=== PATIENT | female | born 1970 | race Caucasian/White ===

== ENCOUNTER → 2017-10-01 14:00 | Outpatient (CLI) | payer BC, SELFPAY ==
[2017-10-04 14:25] LABS: HPV APTIMA, High Risk Negative (Negative)
== END ==
PROVIDERS: Family Provider Student in an Organized Health Care Education/Training Program; PCP Student in an Organized Health Care Education/Training Program; Visit Provider Obstetrics & Gynecology
DX: Z12.4 Encounter for screening for malignant neoplasm of cervix (principal)
CPT/HCPCS: 88175; G0145

== ENCOUNTER → 2017-10-01 15:19 | Outpatient (CLI) | payer BC, SELFPAY ==
[2017-10-01 16:40] LABS: Estradiol 17.3 pg/mL; Follicle Stimulating Hormone 87.5 mIU/mL
== END ==
PROVIDERS: Family Provider Student in an Organized Health Care Education/Training Program; PCP Student in an Organized Health Care Education/Training Program; Visit Provider Obstetrics & Gynecology
DX: N91.2 Amenorrhea, unspecified (principal)
CPT/HCPCS: 36415; 82670; 83001

== ENCOUNTER → 2017-10-03 16:21 | Outpatient (CLI) | payer BC, SELFPAY ==
--- NOTE | 2017-10-03 16:28 | BI_ITS ---
MAMMOGRAPHY - BILATERAL SCREENING 3-D REGIS SYNTHESIS REASON FOR EXAM: Female, 47 years old. Bilateral Screening 3-D tomosynthesis PERTINENT HISTORY: No significant family history. TECHNIQUE: 2-D mammograms and 3-D Regis synthesis of the breast (s) were performed. CAD was performed. COMPARISON: October 14, 2014. FINDINGS: The breast composition is composed of scattered fibroglandular density. Scattered benign calcifications are seen. No dense spiculated masses or suspicious microcalcifications are identified. No architectural distortion is identified. There is no skin thickening or retraction. There has been no significant change since the prior study. BI/SCREENING MAMM (CAD), BILAT IMPRESSION: No mammographic signs of malignancy. Routine yearly mammograms recommended. ASSESSMENT CATEGORY: BIRADS Category 2: Benign. A letter regarding these results will be sent to the patient by the facility within 30 days. FOLLOW UP RECOMMENDATION: Yearly follow up mammogram recommended. (A) Approximately 10% of breast cancers are not detected by mammography. A normal mammogram should not delay biopsy of a clinically suspicious abnormality. Electronically Signed: José Garcia MD at 9:28 EDT , Service support ,
== END ==
PROVIDERS: Family Provider Student in an Organized Health Care Education/Training Program; PCP Student in an Organized Health Care Education/Training Program; Visit Provider Student in an Organized Health Care Education/Training Program
DX: Z12.31 Encounter for screening mammogram for malignant neoplasm of breast (principal)
CPT/HCPCS: 77063; 77067

== ENCOUNTER → 2018-07-06 15:29 | Outpatient (CLI) | payer BC, SELFPAY | PROVIDERS: Family Provider Student in an Organized Health Care Education/Training Program; PCP Student in an Organized Health Care Education/Training Program; Visit Provider Nurse Practitioner Family | DX: R30.0 Dysuria (principal) | CPT/HCPCS: 87086; 87088; 87186 ==

== ENCOUNTER → 2020-02-11 17:00 | Outpatient (CLI) | payer BC, SELFPAY ==
[2018-10-18 08:49] VITALS: BMI 43.6
--- NOTE | 2020-02-11 17:13 | BI_ITS ---
MAMMOGRAPHY - BILATERAL SCREENING REASON FOR EXAM: Female, 50 years old. Routine annual screening examination. PERTINENT HISTORY: Non-contributory. TECHNIQUE: Digital bilateral breast regis (3D mammographic acquisition) in the CC and MLO projections. 2-D mediolateral oblique (MLO) and craniocaudad (CC) views of both breasts were obtained. CAD: Full Field Digital Mammography with Computer Added Detection was performed. COMPARISON: Comparison is made with prior examination dated 10/03/2017. FINDINGS: Breast Composition: There are scattered areas of fibroglandular density. There are no dominant masses or suspicious calcifications. Stable small benign-appearing bilateral axillary lymph nodes. No other significant abnormalities are identified. There has been no significant change since the prior study. BI/SCREEN MAMM (CAD) W/REGIS BILAT IMPRESSION: Stable bilateral screening mammogram. Yearly follow-up mammogram recommended. (A) ASSESSMENT CATEGORY: BIRADS Category 2: Benign. A letter regarding these results will be sent to the patient by the facility within 30 days. Approximately 10% of breast cancers are not detected by mammography. A normal mammogram should not delay biopsy of a clinically suspicious abnormality. [id number] Electronically Signed: Navdeep Keller, at 8:30 EDT , Service support ,
== END ==
PROVIDERS: PCP Student in an Organized Health Care Education/Training Program; Referring Provider Student in an Organized Health Care Education/Training Program; Visit Provider Student in an Organized Health Care Education/Training Program
DX: Z12.31 Encounter for screening mammogram for malignant neoplasm of breast (principal)
CPT/HCPCS: 77063; 77067

== ENCOUNTER 2020-09-05 16:26 | Emergency (ER) | payer OTHER, SELFPAY ==
[2018-10-18 08:49] VITALS: BMI 43.6
[2020-09-05 16:29] VITALS: BP 146/87; PULSE 73; RESP 16; TEMP 36.3; O2SAT 99; BMI 45.2
--- NOTE | 2020-09-05 16:36 | CT_ITS ---
STUDY: CT BRAIN WITHOUT CONTRAST REASON FOR EXAM: Female, 50 years old. FALL AT WORK, HIT HEAD ON DOOR JAM, ON COUMADIN RADIATION DOSAGE (If Supplied By Facility): CTDIvol = ( 44.99 ) mGy, DLP = ( 779.24 ) mGycm TECHNIQUE: Transaxial CT imaging of the brain was performed without administration of intravenous contrast material. Individualized dose optimization techniques were used for this CT. COMPARISON: None. FINDINGS: Moderate to large size scalp hematoma and laceration injury overlying the anterior and lateral convexities of the right frontal bone. No skull or facial fractures are visualized. No demonstrated hemorrhagic contusions of the brain parenchyma. No focal edema is seen. No demonstrated midline shift or hydrocephalus. Normal calvarium. Normal size ventricles and extra-axial spaces for the patient''s age. Normal white matter tracts of the cerebral hemispheres. Normal basal ganglia and thalami. Normal brainstem. Normal cerebellum. There is no intracranial hemorrhage. There are no findings of an acute ischemic infarction. Normal visualized paranasal sinuses. CT/Brain/Head without Contrast IMPRESSION: 1. Moderate to large size scalp hematoma and laceration injury overlying the anterior and lateral convexities of the right frontal bone. No skull or facial fractures are visualized. 2. No demonstrated hemorrhagic contusions of the brain parenchyma. 3. No focal edema is seen. No demonstrated midline shift or hydrocephalus. Electronically Signed: Phillip Kuo MD at 17:54 EDT , Service support ,
--- NOTE | 2020-09-05 16:40 | RAD_ITS ---
STUDY: X-RAY - RIGHT FOOT CLINICAL: Female, 50 years old. INJURY fell at work TECHNIQUE: 3 view(s) of the foot. COMPARISON: None. FINDINGS: A small plantar calcaneal spur is present. Mild to moderate soft tissue swelling is present over the dorsum of foot. Normal talus, calcaneus, and tarsal bones. Normal visualized subtalar, talonavicular, calcaneocuboid, tarsal and tarsometatarsal articulations. Normal metatarsi. Normal metatarsophalangeal joint of the great toe. Normal tibial and fibular sesamoid bones. Normal interphalangeal joint of the great toe. Normal phalanges of the great toe. Normal second through fifth metatarsophalangeal joints. Normal interphalangeal joints and phalanges of the lesser toes. No fracture is present. RAD/Foot min 3 Views IMPRESSION: 1. Mild to moderate soft tissue swelling of the dorsum of the foot Electronically Signed: Phillip Kuo MD at 17:39 EDT , Service support ,
--- NOTE | 2020-09-05 17:55 | ED.DCSUM_ITS ---
- ER Visit Summary Date of Service: 09/05/20 Chief Complaint: Fell out at work injuring her right forehead and right foot. Patient is on Coumadin. History of Present Illness: The patient is a 50 F 3 of factor V Leiden therefore on Coumadin. Patient tripped on a rug at work around 7 AM this morning struck her head. No LOC. No neck pain. Also injured her right foot. Able to walk on the foot. Denies other injuries. Physical Examination: Middle-aged female no acute distress vital signs stable afebrile. She does want to make this Worker's Comp. H EENT exam bruising her right forehead. Pupils round reactive light. Scalp nontender. C-spine nontender. Trachea midline. Normal range of motion to her neck. Lungs clear to auscultation bilaterally. Chest were nontender. Heart regular rate and rhythm rate about 70 no murmur. Abdomen soft nontender normal bowel sounds no peritoneal signs. Pelvic girdle intact. Upper and lower extremities have no deformity. Normal range of motion. 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 Dorsi plantarflexion intact. Right foot is tender anteriorly just distal to the ankle. No gross bony deformity. DP pulse intact. Skin intact. Ankle nontender. Right knee nontender. Left lower extremity nontender. Back nontender. Spine nontender. Neurologically she is awake alert with no focal motor deficits. Test Results: CAT scan of her brain without contrast shows no acute abnormality. No bleed. No skull fracture. Awaiting formal radiology interpretation. I did review the film. Right foot x-ray 3 views read by myself shows no acute abnormality. No fracture. No dislocation. Emergency Department Course and Treatment: Patient with fall at work on Coumadin with a head injury. CAT scan and x-ray obtained. Tylenol for pain. Ice to the forehead bruise. Treatment Plan: Head injury instructions. Tylenol for pain. Follow-up if not improving. Return if worse. Disposition: Discharge Impression: Tripped and fell at work Closed head injury with right forehead hematoma Right foot contusion Anticoagulated on Coumadin secondary to factor V Leiden. Worker's Comp. injury This note was generated with apomio dictation software. It may contain incorrect words, spelling, and punctuation that were not noted in review of the chart prior to signing ED Disposition - Plan for ED Patient: Referrals: Handy Mike DO [Primary Care Provider] -
--- NOTE | 2020-09-05 17:58 | ED.DEP ---
ED Disposition - Plan for ED Patient: Disposition: Home or Assisted Living Instructions: ED Head Injury (Adult), ED Foot Contusion Referrals: Handy Mike DO [Primary Care Provider] - 1 Week if not improving Additional Instructions: Ice to your forehead and foot. Elevate your foot to decrease pain and swelling. Tylenol for pain. Read and follow head injury instructions. If you develop a severe headache, intractable vomiting or not acting right you need to be reevaluated because unlikely but you can develop bleeding inside your brain due to the Coumadin several days after a fall. If your foot not improving and have it reevaluated.
[2020-09-05] MEDS: Acetaminophen 500 MG Tablet 1000 MG PO (18:38)
== END 2020-09-05 18:40 | disposition home or self-care (01) ==
LOC: ED 18:06
PROVIDERS: Emergency Provider Emergency Medicine; PCP Student in an Organized Health Care Education/Training Program
DX: S00.83XA Contusion of other part of head, initial encounter (principal); S90.31XA Contusion of right foot, initial encounter; D68.51 Activated protein C resistance; W01.198A Fall on same level from slipping, tripping and stumbling with subsequent striking against other object, initial encounter; Z79.01 Long term (current) use of anticoagulants
CPT/HCPCS: 70450; 73630; 99282

== ENCOUNTER 2020-09-06 01:31 | Emergency (ER) | payer OTHER, SELFPAY ==
[2020-09-05 16:29] VITALS: BMI 45.2
[2020-09-06 01:32] VITALS: BP 118/67; PULSE 64; RESP 18; TEMP 36.4; O2SAT 100; BMI 45.7
[2020-09-06 01:34] VITALS: BP 118/67; PULSE 64; RESP 16; TEMP 36.4; O2SAT 100
--- NOTE | 2020-09-06 01:48 | CT_ITS ---
STUDY: CT BRAIN WITHOUT CONTRAST REASON FOR EXAM: Female, 50 years old. Head injury on coumadin -- New dizziness since last CT RADIATION DOSAGE (If Supplied By Facility): CTDIvol = ( 44.99 ) mGy, DLP = ( 796.11 ) mGycm TECHNIQUE: Transaxial CT imaging of the brain was performed without administration of intravenous contrast material. Individualized dose optimization techniques were used for this CT. COMPARISON: Earlier same day.. FINDINGS: Large right frontoparietal scalp hematoma noted. There is no intra-/extra-axial fluid collection, mass effect, or midline shift. The ferrell/white matter junction is preserved. The basal cisterns are patent. A small polyps versus retention cysts in the left axilla sinus. Other paranasal sinuses and mastoid air cells are clear. The calvarium is intact. CT/Brain/Head without Contrast IMPRESSION: No acute intracranial finding. Large frontoparietal scalp hematoma. Electronically Signed: Wai Davis MD at 2:43 EDT Tel , Service support ,
[2020-09-06 02:01] LABS: Absolute Lymphocyte Count 1.34 X10^3/uL (0.83-4.51); Absolute Neutrophil Count 3.3 X10^3/uL (2.0-7.7); Basophil# 0.02 X10^3/uL; Basophil% 0.4 % (0-1); Eosinophil# 0.13 X10^3/uL; Eosinophils% 2.4 % (0-5); Hematocrit 38.4 % (37-47); Lymphocyte # 1.34 X10^3/ul (4.0); Lymphocyte % 24.7 % (19-41); Mean Corp Hgb Conc 33.9 g/dL (32-36); Mean Corpuscular Hgb 31.5 pg (27.0-32.0); Mean Platelet Vol. 8.2 fl (6.2-12.0); Monocyte# 0.61 X10^3/uL; Monocyte% 11.2 % (0-10); NRBC Flagged by Analyzer 0 % (0-5); Neutrophil # 3.31 X10^3/uL (2.7-7.7); Neutrophil % 60.9 % (47-70); Platelet Count 143 K/mm3 (150-450); RBC Distribution Width CV 12.7 % (11.6-14.6); RBC Distribution Width SD 43.3 fl (35.1-43.9); Red Blood Count 4.13 M/mm3 (4.2-5.4); White Blood Count 5.4 K/mm3 (4.4-11.0)
--- NOTE | 2020-09-06 02:02 | ED.VIS.GEN ---
History of Present Illness Chief Complaint: Dizziness Informant: Patient Narrative: Patient is a 50-year-old female with a past medical history of factor V Leiden on Coumadin who presents to the emergency department after a fall that occurred yesterday. She was seen in the ED for this complaint. She had a CT scan of her head done as well as x-ray of her foot. She did strike her head when she fell. She also got her foot caught under a rug and is not sure how she hurt the foot but has been having pain on the dorsal aspect. The CT scan of her head did not show any intracranial hemorrhage or skull fracture. The x-ray of the foot did not show any evidence of dislocation or fracture. She is returning to the emergency department because she could not bear any weight on the foot whenever she got up to use the restroom. Whenever she got up she felt very dizzy as in everything was spinning around her. She has had significant swelling pop up over the right side of her face since last seen in the emergency department. Her eye is now swollen shut completely. Denies any vision changes in her left eye. She has been feeling mildly nauseous but no vomiting. She denies any neck pain or chest pain/shortness of breath. No abdominal pain. No injury to other extremities. She states that she was going to come in just for the reason of the foot pain but then the dizziness also is now concerning her. She states that the last time she had her INR checked has been multiple months as she did not have insurance. Past Medical History - Allergies and Home Meds Allergies/Adverse Reactions: Allergies codeine Adverse Reaction (Verified 09/05/20 16:32) Vomiting hydrocodone bitartrate [From Vicodin] Adverse Reaction (Verified 09/05/20 16:32) Pain in joints Primary Care Physician: Handy Mike DO [Primary Care Provider] - 3-5 Days Prior records reviewed: Yes Past Medical History: - - Factor V Leiden, anxiety, migraines Surgical History: noncontributory Smoking Status: Never smoker Review of Systems All systems negative except as indicated General: Denies: Chills, Fever, Sweats Eyes: Denies: Visual changes - bilaterally, Diplopia ENT: Denies: Rhinorrhea, Sore throat Cardiovascular: Denies: Chest pain, Palpitations Respiratory: Denies: Dyspnea, Cough, Dyspnea on exertion Gastrointestinal: Denies: Abdominal pain, Nausea, Vomiting, Diarrhea, Melena, Hematochezia Genitourinary: Denies: Dysuria, Hematuria, Frequency Musculoskeletal: Reports: Swelling, Extremity Pain. Denies: Back pain Skin: Denies: Rash, Wounds Neurological: Reports: - - Dizziness. Denies: Headache, Weakness, Numbness Physical Exam Vital Signs/Narrative: Vital Signs Temp Pulse Resp BP Pulse Ox 09/06/20 01:34 97.6 F L 64 16 118/67 100 09/06/20 01:32 97.6 F L 64 18 118/67 100 Inital Vital Signs reviewed: Yes General: Well nourished, Well developed, No Acute Distress Head: Normocephalic, - - Patient right side of her face is swollen with ecchymosis. The right eye is swollen shut. Is able to be opened. Eyes: Perrl, EOMI, - - No proptosis bilaterally. No hyphema. No subconjunctival hemorrhage. ENT: Moist mucous membranes, No rhinorrhea, TM's clear - No hemotympanum, no johnson sign. Neck: Supple, Nontender Cardiovascular: Regular rate, Regular rhythm, No murmurs Respiratory: No distress, CTA bilaterally, Chest nontender Abdomen: Soft, Nontender, Nondistended, Normal bowel sounds Back: Nontender, Normal Inspection. Negative for: Spinal tenderness Extremities: Tenderness - Right foot dorsal aspect is very tender to palpation and swollen. Neurovascularly intact otherwise., Edema, - - No pain over the base of fifth metatarsal. No pain over ankle. Skin: Normal color, No rash Neurological: Alert, Oriented x3, Cranial nerves II-XII grossly intact, Normal Strength, Normal Sensation Psychological: Normal affect, Normal Mood Diagnostic/Tx/Re-eval - Medical Decision Making Patient presents to the ED for reevaluation of her fall causing head trauma as well as right foot pain. He is in a walking boot but feels this boot is too small for as she had it from a previous injury on her left foot. Will trial a new walking boot to see if this fits better. The fact she has new dizziness and nausea will repeat head CT given the fact she is anticoagulated. I have low suspicion for intracranial bleed but it will be repeated out of an abundance of caution. Radiation risks were discussed with her. I do not feel any repeat imaging of the foot is necessary. Given the fact she is stating she has not had her INR checked in many months we will repeat this now as well as a blood count. Patient's lab work did not reveal her to be anemic. Her INR is at 3.5. Repeat head CT did not reveal any intracranial hemorrhage. Patient's dizziness has resolved. Her only complaint now is her foot pain. She was placed in a new boot and she does feel like this fits better. She does have a cane at home. I did advise her on rice and she can continue to take Tylenol as needed. She is to follow-up with her PCP. Return precautions are reviewed with her. She is agreeable to this plan. Discharged home in stable condition. All questions answered. ED Disposition - Plan for ED Patient: Disposition: Home or Assisted Living Diagnosis: Facial contusion, Foot contusion, Supratherapeutic INR Instructions: ED Soft Tissue Contusion, ED Facial Contusion, ED Head Injury (Adult) Referrals: Handy Mike DO [Primary Care Provider] - 3-5 Days
[2020-09-06 02:11] LABS: International Normalized Ratio 3.5; Prothrombin Time (Protime)PT. 34.3 SECONDS (11.7-14.9)
[2020-09-06 02:57] VITALS: BP 113/83; PULSE 73; RESP 18; O2SAT 97
== END 2020-09-06 02:57 | disposition home or self-care (01) ==
PROVIDERS: Emergency Provider Emergency Medicine; PCP Student in an Organized Health Care Education/Training Program
DX: S00.83XA Contusion of other part of head, initial encounter (principal); S90.31XA Contusion of right foot, initial encounter; R79.1 Abnormal coagulation profile; Z79.01 Long term (current) use of anticoagulants; W18.09XA Striking against other object with subsequent fall, initial encounter
CPT/HCPCS: 36415; 70450; 85025; 85610; 99284

== ENCOUNTER → 2020-10-03 16:14 | Outpatient (CLI) | payer OTHER, SELFPAY ==
--- NOTE | 2020-10-03 16:17 | RAD_ITS ---
STUDY: X-RAY - RIGHT FOOT CLINICAL: Female, 50 years old. right foot pain TECHNIQUE: 3 view(s) of the foot. COMPARISON: None. FINDINGS: Normal talus, calcaneus, and tarsal bones. Small plantar calcaneal enthesophyte. Normal visualized subtalar, talonavicular, calcaneocuboid, tarsal and tarsometatarsal articulations. Irregularity the base of the second third metatarsal bones which may represent healing fractures. Correlation MRI may be useful. Normal metatarsophalangeal joint of the great toe. Normal tibial and fibular sesamoid bones. Normal interphalangeal joint of the great toe. Normal phalanges of the great toe. Normal second through fifth metatarsophalangeal joints. Normal interphalangeal joints and phalanges of the lesser toes. The soft tissue structures are unremarkable. RAD/Foot min 3 Views IMPRESSION: Questionable healing fractures of the base of the second third metatarsal bones and correlation MRI may be useful. Electronically Signed: Demetris Gómez MD at 16:31 EDT Tel , Service support ,
== END ==
PROVIDERS: PCP Student in an Organized Health Care Education/Training Program; Referring Provider Physician Assistant; Visit Provider Physician Assistant
DX: S99.921A Unspecified injury of right foot, initial encounter (principal); X58.XXXA Exposure to other specified factors, initial encounter; Y93.9 Activity, unspecified; Y92.9 Unspecified place or not applicable; Y99.9 Unspecified external cause status
CPT/HCPCS: 73630

== ENCOUNTER → 2020-10-27 11:01 | Outpatient (CLI) | payer OTHER, SELFPAY ==
--- NOTE | 2020-10-27 11:04 | MRI_ITS ---
STUDY: MRI RIGHT MIDFOOT REASON FOR EXAM: Pain in the region of the right first, second and third metatarsals, right foot injury 2 months ago. TECHNIQUE: Standardized fat and water weighted pulse sequences were obtained in all 3 orthogonal planes. COMPARISON: Radiographs 10/03/2020. FINDINGS: Normal talonavicular articulation. Normal calcaneocuboid articulation. There is arthrosis of the navicular-cuneiform articulations with chondral thinning and subchondral cystic change of the distal navicular-medial cuneiform (inversion recovery sagittal images 17, 18). Normal intercuneiform articulations. Normal first tarsometatarsal articulation. Normal Lisfranc ligament. Normal second and third tarsometatarsal articulations. Normal cuboid fourth and cuboid fifth tarsometatarsal articulation. There are bone contusions of the medial, middle and lateral cuneiforms and first through third metatarsal bases (inversion recovery sagittal images 10-19). Normal visualized distal tibialis anterior tendon. Normal extensor hallucis longus tendon. Normal extensor digitorum longus tendons. Normal peroneus longus tendon and distal insertion. Normal peroneus brevis tendon and distal insertion. There is mild atrophy with mild partial fat replacement of the abductor digiti minimi muscle (T1 sagittal image 7). There is edema in the dorsal subcutis adipose space. MRI/Lower Ext/No Jt/w/o IMPRESSION: Bone contusions of the first through third metatarsal bases and cuneiforms. Arthrosis of the navicular-cuneiform articulations. Mild atrophy of the abductor digiti minimi muscle. Electronically Signed: Nitin Pham MD at 12:30 EDT Tel , Service support ,
== END ==
PROVIDERS: PCP Student in an Organized Health Care Education/Training Program; Referring Provider Physician Assistant; Visit Provider Physician Assistant
DX: S90.31XA Contusion of right foot, initial encounter (principal); X58.XXXA Exposure to other specified factors, initial encounter; Y93.9 Activity, unspecified; Y92.9 Unspecified place or not applicable; Y99.9 Unspecified external cause status
CPT/HCPCS: 73718

== ENCOUNTER 2021-02-26 05:22 | Emergency (ER) | payer OTHER, SELFPAY ==
[2021-02-26 05:22] VITALS: BP 151/82; PULSE 83; RESP 18; TEMP 36.2; O2SAT 96; BMI 44.4
[2021-02-26 05:24] VITALS: BP 151/82; PULSE 83; RESP 18; TEMP 36.2; O2SAT 96
--- NOTE | 2021-02-26 06:07 | RAD_ITS ---
STUDY: X-RAY CHEST REASON FOR EXAM: Female, 51 years old. Cough TECHNIQUE: Single AP portable view of the chest. COMPARISON: 11/27/2015 FINDINGS: The lungs are clear and expanded. There is no demonstrated pleural abnormality. Normal size heart. Normal mediastinum and suzanna. Normal visualized pulmonary arteries. Normal visualized aortic arch and descending thoracic aorta. Normal visualized thoracic spine. Normal visualized ribs, clavicles, and shoulders. There is no demonstrated abnormality of the visualized soft tissue structures of the upper abdomen. RAD/Chest 1 View (Portable) IMPRESSION: Normal x-ray examination of the chest. Electronically Signed: Demetris Gómez MD at 7:08 EDT Tel , Service support ,
--- NOTE | 2021-02-26 06:20 | EDS_ITS ---
HPI History of Present Illness Chief Complaint: Cough Informant: patient Onset/Context/Timing Onset: Days (5) Context: Gradual Onset Timing: Continuous Worsened by: Nothing Relieved by: Nothing Associated Symptoms Associated Symptoms: Myalgias, headache, shortness of breath, sore throat, and ear pain Narrative Narrative: Patient presents with cough that has been getting worse over the past 5 days. Patient denies any sputum production. Patient does admit to a sore t hroat and some ear pain. Patient states nothing seems to make it better nothing seems to make it worse. Patient states she went to an urgent care and had a COVID-19 test done there. Patient states they called her and told her that her specimen was rejected. Patient admits to some nausea but denies any vomiting. Patient also admits to some diarrhea. Patient admits to some body aches and headaches. [facility] Medical History (Updated 02/26/21 @ 07:[address] Dillon Genao DO) Abnormal Pap smear of cervix Anxiety Chest pain SOB (shortness of breath) Home Medications warfarin 4 mg tablet 4 mg PO MO 10/01/17 [History Last Taken Unknown] warfarin 6 mg tablet 6 mg PO SUTUWETHFRSA 10/01/17 [History Last Taken Unknown] fluoxetine 40 mg PO DAILY 09/05/20 [History Last Taken Unknown] Allergy/AdvReac Type Severity Reaction Status Date / Time codeine AdvReac Vomiting Verified 09/16/20 16:18 hydrocodone bitartrate AdvReac Pain in Verified 09/16/20 16:18 [From Vicodin] joints Family History Father Diabetes Congestive heart failure Asthma Mother Congestive heart failure Surgical History delivery delivered History of cholecystectomy Social History Smoking Status: Never smoker alcohol intake: never substance use type: does not use caffeine: Yes what type of physical activity do you participate in: walking seatbelt use: always do you feel safe at home: Yes additional social history: - [employer] ROS ROS ED Constitutional Constitutional ED: Reports chills and subjective; Denies fever(s) Eyes Eyes: Denies blurry vision or change in vision ENT ENT ED: Reports ear pain and sore throat; Denies rhinorrhea Cardiovascular Cardiovascular: Denies chest pain or palpitations Respiratory/Chest Respiratory/Chest: Reports cough and dyspnea Gastrointestinal Gastrointestinal: Reports diarrhea and nausea; Denies vomiting Genitourinary Genitourinary ED: Denies dysuria or hematuria Musculoskeletal Musculoskeletal: Reports myalgias; Denies back pain or neck pain Integumentary Denies abscess or rash Neurologic Neurologic: Reports headache(s); Denies weakness Allergic/Immunologic Allergic/Immunologic ED: Denies mouth swelling or urticaria EXAM Physical Exam Const Vital Signs: 02/26/21 05:22 02/26/21 05:24 02/26/21 05:26 Temperature 97.1 F L 97.1 F L Temperature Source Temporal Temporal Pulse Rate 83 83 Respiratory Rate 18 18 Respiratory Effort Normal Respiratory Pattern Normal Blood Pressure 151/82 H 151/82 H Blood Pressure Mean 105 105 Pulse Ox 96 96 Oxygen Delivery Method Room Air Room Air Positive well nourished, well developed and obese General Appearance ED: well developed Nutritional Appearance: obese HEENT Reports moist mucous membranes Neck supple and no JVD Resp normal respiratory effort Auscultation: diminished lung sounds diffuse Cardio regular rate, regular rhythm and no murmurs GI normal to inspection, nondistended, normoactive bowel sounds and non-tender Palpation: soft Extremity normal to inspection General Extremety ED: Negative for edema or tenderness General Extremity: Negative for edema Neuro oriented x3, CN's II-XII intact bilaterally and no sensory deficits noted Sensorium / Orientation: alert Motor Exam: strength 5/5 throughout Psych mental status grossly normal Skin no rashes or lesions noted MDM MDM MDM Narrative Medical decision making narrative: COVID-19 rapid antigen was obtained and was positive. Portable 1 view chest x-ray was obtained. On my interpretation, lung mao are clear. There is normal cardiac silhouette. Bony thorax is normal. There is no acute process noted. Radiologist also interpreted the x-ray and agrees. Patient was given 2 puffs of an albuterol inhaler. Patient was feeling better on reevaluation. Patient was instructed to use her inhaler as needed for coughing and wheezing. Patient was instructed to follow-up with her primary care physician in 5 to 7 days. Patient understood and was agreeable with the plan. All questions were answered. Radiography Chest X-Ray - ED: 1 View, Read by ED Physician, Read by Radiologist and Unchanged Diagnostic Testing: Radiology Impression Chest X-Ray 02/26/21 06:07 IMPRESSION: Normal x-ray examination of the chest. Electronically Signed: Demetris Gómez MD at 7:08 EDT Tel , Service support , Discharge Plan Triage Chief Complaint: Cough ED Provider: Dillon Genao Dx/Rx/DC Orders Clinical Impression: COVID-19 Instructions: Coronavirus Disease 2019 (COVID-19): Overview Prescriptions: No Action warfarin 4 mg tablet 4 mg PO MO RF: 0 warfarin 6 mg tablet 6 mg PO SUTUWETHFRSA RF: 0 fluoxetine 20 MG capsule 40 mg PO DAILY RF: 0 Stand Alone Forms: ED Work / School Excuse Primary Care Provider: Handy Mike Referrals: Handy Mike DO [Primary Care Provider] - Disposition Disposition: Home, Self Care
[2021-02-26 08:07] VITALS: PULSE 82; RESP 22; O2SAT 96
--- NOTE | 2021-02-26 08:08 | ED.RN ---
THIS NURSE REVIEWED D/C INSTRUCTIONS WITH PT. PT VERBALIZED UNDERSTANDING OF INSTRUCTIONS. PT DENIES FURTHER NEEDS OR QUESTIONS AT THIS TIME.
== END 2021-02-26 08:09 | disposition home or self-care (01) ==
PROVIDERS: Emergency Provider Emergency Medicine; PCP Student in an Organized Health Care Education/Training Program
DX: U07.1 COVID-19 (principal); H92.09 Otalgia, unspecified ear; F41.9 Anxiety disorder, unspecified; E66.9 Obesity, unspecified; Z79.01 Long term (current) use of anticoagulants; Z79.899 Other long term (current) drug therapy
CPT/HCPCS: 71045; 87426; 99282

== ENCOUNTER 2021-03-02 13:56 | Emergency (ER) | payer OTHER, SELFPAY ==
[2021-03-02 13:58] VITALS: BP 130/70; PULSE 81; RESP 26; TEMP 36.4; O2SAT 92; BMI 43.4
[2021-03-02 14:06] VITALS: O2SAT 93
--- NOTE | 2021-03-02 14:12 | EKG12_ITS ---
Test Reason : SOB Blood Pressure : / mmHG Vent. Rate : 079 BPM Atrial Rate : 079 BPM P-R Int : 132 ms QRS Dur : 080 ms QT Int : 402 ms P-R-T Axes : 018 039 175 degrees QTc Int : 460 ms Normal sinus rhythm ST & T wave abnormality, consider inferior ischemia ST & T wave abnormality, consider anterolateral ischemia Prolonged QT Abnormal ECG Confirmed by ALISON CAICEDO, AZAEL ([id number]), staff editor CLARICE FUENTES ([id number]) on 03/03/2021 10:21:09 A M Referred By: WAGNER Confirmed By:DOTTIE ROSAS MD
--- NOTE | 2021-03-02 14:12 | RAD_ITS ---
STUDY: X-RAY CHEST REASON FOR EXAM: Female, 51 years old. Rales bilaterally, Covid pneumonia TECHNIQUE: Single AP portable view of the chest. COMPARISON: Comparison is made with prior study dated 02/26/2021. FINDINGS: EKG electrodes are seen. There now is evidence of patchy alveolar densities in both lungs in the preferential peripheral location suggests pneumonitis secondary to Covid.There is no demonstrated pleural abnormality. Normal size heart. Normal mediastinum and suzanna. Normal visualized pulmonary arteries. Normal visualized aortic arch and descending thoracic aorta. Normal visualized thoracic spine. Normal visualized ribs, clavicles, and shoulders. There is no demonstrated abnormality of the visualized soft tissue structures of the upper abdomen. RAD/Chest 1 View (Portable) IMPRESSION: Patchy bilateral alveolar densities in the preferential peripheral distribution suggestive of a pneumonitis secondary to Covid. Electronically Signed: Navdeep Keller MD at 15:05 EDT , Service support ,
--- NOTE | 2021-03-02 14:14 | EX.ED.DYSGE1 ---
HPI History of Present Illness Chief Complaint: Nausea/Vomiting/Diarrhea Informant: patient Onset/Context/Timing Onset: Days (Onset of symptoms February 22, positive test February 26) Context: Sudden Onset Timing: Continuous Quality: GI, and respiratory symptoms Location: Predominantly respiratory and reason for presentation Current Severity: Mild Maximum Severity: Severe Worsened by: Walking and coughing and breathing Relieved by: Nothing Associated Symptoms Associated Symptoms: Please read HPI Narrative Narrative: Patient is a 51-year-old woman who presents with chief complaint of pain with coughing, breathing and dyspnea after walking 10 feet. She does have history of factor V Leiden deficiency. She is on Coumadin. She does not recall when her last PT/INR was. She does report headache. She denies photophobia, ocular changes or ocular pain. She denies ringing or ears or decreased hearing. She has mild nasal congestion. She does report sore throat. She does have a cough which essentially is nonproductive. She denies hemoptysis. She denies leg pain, swelling discoloration. She does report nausea without vomiting. She does report 4-5 loose watery stools per day. There is no blood or mucus noted. She reports decreased urination. She does endorse decreased p.o. intake, thirst and dry mouth. She denies history of any chronic medical problems other than the factor V Leiden deficiency. She denies history of obstructive sleep apnea. Prior similar symptoms: Yes Recent Illness/Hospitalization: Yes [facility] Medical History Abnormal Pap smear of cervix Anxiety Chest pain Factor V deficiency Migraine SOB (shortness of breath) Home Medications warfarin 4 mg tablet 4 mg PO MO 10/01/17 [History Last Taken Unknown] warfarin 6 mg tablet 6 mg PO SUTUWETHFRSA 10/01/17 [History Last Taken Unknown] fluoxetine 50 mg PO DAILY 09/05/20 [History Last Taken Unknown] hydrocodone-homatropine [Hycodan (with homatropine)] 5 ml PO Q4H PRN 4 Days #120 ml 03/02/21 [Rx Last Taken Unknown] ondansetron 4 mg PO Q8H PRN PRN #10 tab 03/02/21 [Rx Last Taken Unknown] propranolol 20 mg PO DAILY 03/02/21 [History Last Taken Unknown] Allergy/AdvReac Type Severity Reaction Status Date / Time codeine AdvReac Vomiting Verified 03/02/21 13:56 hydrocodone bitartrate AdvReac Pain in Verified 03/02/21 13:56 [From Vicodin] joints Family History Father Diabetes Congestive heart failure Asthma Mother Congestive heart failure Surgical History delivery delivered History of cholecystectomy Social History (Updated 03/02/21 @ 14:[address] Bruce Stanley MD) household members: none Smoking Status: Never smoker alcohol intake: never substance use type: does not use caffeine: Yes what type of physical activity do you participate in: walking seatbelt use: always do you feel safe at home: Yes additional social history: - [employer] ROS ROS ED Constitutional Constitutional ED: Reports sweats; Denies chills, fever(s), subjective or weight loss Eyes Eyes: Denies blurry vision, change in vision or diplopia ENT ENT ED: Reports rhinorrhea and sore throat; Denies ear pain Cardiovascular Cardiovascular: Reports chest pain; Denies orthopnea, palpitations, paroxysmal nocturnal dyspnea or racing heartbeat Respiratory/Chest Respiratory/Chest: Reports cough, dyspnea and dyspnea on exertion; Denies orthopnea, paroxysmal nocturnal dyspnea or sputum Gastrointestinal Gastrointestinal: Reports abdominal pain, diarrhea and nausea; Denies constipation, melena or vomiting Genitourinary Genitourinary ED: Reports dysuria, hematuria and urinary frequency Musculoskeletal Musculoskeletal: Denies arthralgias, myalgias or neck pain Integumentary Denies rash Neurologic Neurologic: Reports headache(s) and weakness; Denies paresthesias Allergic/Immunologic Allergic/Immunologic ED: Denies mouth swelling, tongue swelling or urticaria EXAM Physical Exam Const Vital Signs: 03/02/21 13:58 03/02/21 14:06 Temperature 97.5 F L Temperature Source Oral Pulse Rate 81 Respiratory Rate 26 H Respiratory Effort Short of Breath Blood Pressure 130/70 H Blood Pressure Mean 90 Pulse Ox 92 Oxygen Delivery Method Room Air Room Air Positive well nourished, well developed and obese General Appearance ED: well developed and other Patient appears ill. ; Negative for cyanotic, diaphoretic or NAD Nutritional Appearance: obese HEENT Reports dry mucous membranes HEENT Narrative: Head is atraumatic normocephalic. Ears normal. Nares patent. Mouth ED: Yes dry mucous membranes Mouth: dry mucous membranes Eyes PERRL and EOMs intact bilaterally General Eye ED: Negative for pale conjunctiva or scleral icterus Neck no lymphadenopathy, supple and no JVD Resp normal respiratory effort and No clear to auscultation bilaterally Effort and Inspection: Negative for retractions or pain with movement Auscultation: rales bilateral lower and wheezes; Negative for diminished lung sounds Cardio regular rate, regular rhythm, S1 normal heart sound, S2 normal heart sound and no murmurs GI normal to inspection, nondistended, normoactive bowel sounds, non-tender and non-distended Palpation: soft Back/Spine no CVA tenderness General Back: Negative for CVA tenderness Cervical Spine: Negative for cervical spine tenderness Thoracic Spine / Upper Back: Negative for thoracic spinal tenderness or paraspinal muscle tenderness Extremity normal to inspection Extremity Narrative: There is no asymmetry, swelling, discoloration, leg vein distention, palpable cords or tenderness along the distribution of the deep venous system. General Extremety ED: Negative for edema or tenderness General Extremity: Negative for edema Neuro oriented x3, CN's II-XII intact bilaterally and no sensory deficits noted Sensorium / Orientation: alert Motor Exam: strength 5/5 throughout Psych mental status grossly normal Skin no rashes or lesions noted and no wounds MDM MDM MDM Narrative Medical decision making narrative: SPECT patient's respiratory symptoms are due to Covid pneumonia. Clinically she has Covid pneumonia. Since her chest x-ray was clear several days ago will repeat since there are auscultatory findings noted today. Because of the reported diarrhea electrolyte panel was obtained to specifically look at anion gap, renal function and potassium. Clinically she is dehydrated. 1 L normal saline was ordered. Zofran for the nausea Imodium for the diarrhea. Patient was informed of her results at 06/14/2007. She requested cough medicine. Will be discharged with a prescription for cough medicine. Lab Data Attestation: I reviewed the patient's lab results. Lab results narrative: INR is therapeutic at 3.3. Patient is neutropenic consistent with Covid pneumonia. Renal function, CO2 and anion gap are normal. The chest x-ray was normal 4 days ago. Suspect patient's respiratory symptoms are all due to the Covid pneumonia. Labs: Laboratory Results - last 24 hr 03/02/21 03/02/21 03/02/21 14:40 14:40 14:40 WBC 2.0 L RBC 4.10 L Hgb 13.0 Hct 37.2 MCV 90.7 MCH 31.7 MCHC 34.9 RDW Std Deviation 42.3 RDW Coeff of Delmy 12.8 Plt Count 115 L MPV 8.7 Immature Gran % (Auto) 0.500 Neut % (Auto) 72.9 H Lymph % (Auto) 21.2 [place] % (Auto) 4.9 Eos % (Auto) 0.0 Baso % (Auto) 0.5 Absolute Neuts (auto) 1.5 L Absolute Lymphs (auto) 0.43 L Nucleated RBC % 0 PT 32.4 H INR 3.3 Sodium 137 Potassium 3.0 L Chloride 103 Carbon Dioxide 28.0 Anion Gap 6 BUN 10 Creatinine 1.00 Estim Creat Clear Calc 58.54 Est GFR (MDRD) Af Amer 75 Est GFR (MDRD) Non-Af 62 BUN/Creatinine Ratio 10.0 Glucose 128 H Calcium 8.0 L Radiography Chest X-Ray - ED: 1 View and Read by ED Physician (Single view portable chest x-ray is interpreted by in at 06/14/2004. Patient has bilateral interstitial infiltrates consistent with Covid pneumonia. Cardiac silhouette size normal. Osseous structures are unremarkable.) Diagnostic Testing: Radiology Impression Chest X-Ray 03/02/21 14:12 IMPRESSION: Patchy bilateral alveolar densities in the preferential peripheral distribution suggestive of a pneumonitis secondary to Covid. Electronically Signed: Navdeep Keller MD at 15:05 EDT , Service support , EKG Initial EKG: Attestation: I personally reviewed and interpreted this EKG as follows: Interpretation: Sinus Rhythm (Normal sinus rhythm with a ventricular rate of 79. KS interval 232 ms. Cures duration 80 ms. QT duration 402 ms with a QTC of 460 ms which is prolonged. There is an early transition with flipped T waves in V2 and V3 concerning for posterior NE. This EKG is unchanged from April 20, 2013.) Prior EKG tracings: available for review Prior: Unchanged Discharge Plan Triage Chief Complaint: Nausea/Vomiting/Diarrhea ED Provider: Bruce Stanley Dx/Rx/DC Orders Clinical Impression: Pneumonia due to COVID-19 virus, Diarrhea due to COVID-19, Dehydration, mild Instructions: Coronavirus Disease 2019 (COVID-19): Caring for Yourself or Others, ED Dehydration (Adult) Prescriptions: New ondansetron [ondansetron] 4 MG tablet 4 mg PO Q8H PRN PRN (Reason: Nausea) Qty: 10 RF: 0 hydrocodone-homatropine [Hycodan (with homatropine)] 5-1.5 mg/5 mL syrup 5 ml PO Q4H PRN (Reason: cough) 4 Days Qty: 120 RF: 0 No Action warfarin 4 mg tablet 4 mg PO MO RF: 0 warfarin 6 mg tablet 6 mg PO SUTUWETHFRSA RF: 0 fluoxetine 20 MG capsule 50 mg PO DAILY RF: 0 propranolol 20 mg Tablet 20 mg PO DAILY RF: 0 Primary Care Provider: Handy Mike Referrals: Handy Mike DO [Primary Care Provider] - 10-14 Days if not better Disposition Disposition: Home, Self Care
[2021-03-02] MEDS: Loperamide 2 MG Capsule 4 MG PO (14:37)
[2021-03-02] MEDS: 0.9% Normal Saline 1,000 ML 1000 ML IV (14:38)
[2021-03-02 14:48] LABS: Absolute Lymphocyte Count 0.43 X10^3/uL (0.83-4.51); Absolute Neutrophil Count 1.5 X10^3/uL (2.0-7.7); Basophil# 0.01 X10^3/uL; Basophil% 0.5 % (0-1); Hematocrit 37.2 % (37-47); Lymphocyte # 0.43 X10^3/ul (0.83-4.51); Lymphocyte % 21.2 % (19-41); Mean Corp Hgb Conc 34.9 g/dL (32-36); Mean Corpuscular Hgb 31.7 pg (27.0-32.0); Mean Corpuscular Volume 90.7 fL (81-99); Mean Platelet Vol. 8.7 fl (6.2-12.0); Monocyte% 4.9 % (0-10); NRBC Flagged by Analyzer 0 % (0-5); Neutrophil # 1.48 X10^3/uL (2.7-7.7); Neutrophil % 72.9 % (47-70); POSITIVE DIFFERENTIAL YES; Platelet Count 115 K/mm3 (150-450); RBC Distribution Width CV 12.8 % (11.6-14.6); RBC Distribution Width SD 42.3 fl (35.1-43.9)
[2021-03-02 14:50] LABS: Differential Indicated SCAN CRITERIA MET
[2021-03-02 14:53] LABS: International Normalized Ratio 3.3; Prothrombin Time (Protime)PT. 32.4 SECONDS (11.7-14.9)
[2021-03-02 14:57] LABS: Anion Gap 6 (5-15); BUN 10 mg/dL (7-18); Chloride 103 mmol/L (98-107); EST Glomerular Filtration Rate 62 mL/min (>60); Est Glom Filt Rate - Afr Amer 75 mL/min (>60); Estimated Creatinine Clearance 58.54 ml/min; Glucose 128 mg/dL (74-106); Sodium Level 137 mmol/L (136-145)
[2021-03-02 15:25] LABS: Anisocytosis RARE; Macrocytosis RARE; Ovalocyte RARE; Platelet Estimate SLT DEC (ADEQ); Red Cell Morphology N CHROM NORMAL (NORM C&C)
[2021-03-02 15:31] VITALS: BP 116/56; PULSE 75; RESP 21; O2SAT 93
[2021-03-03 13:24] LABS: Pathologist Review Reviewed
== END 2021-03-02 15:41 | disposition home or self-care (01) ==
PROVIDERS: Emergency Provider Emergency Medicine; PCP Student in an Organized Health Care Education/Training Program
DX: U07.1 COVID-19 (principal); J12.82 Pneumonia due to coronavirus disease 2019; E86.0 Dehydration; R11.2 Nausea with vomiting, unspecified; R19.7 Diarrhea, unspecified; D68.51 Activated protein C resistance; F41.9 Anxiety disorder, unspecified; E66.9 Obesity, unspecified; Z79.01 Long term (current) use of anticoagulants; Z79.899 Other long term (current) drug therapy
CPT/HCPCS: 71045; 80048; 85025; 85610; 93005; 96360; 99285; J7030; A4216

== ENCOUNTER 2021-04-12 17:35 | Emergency (ER) | payer OTHER, SELFPAY ==
[2021-04-12 17:36] VITALS: BP 143/72; PULSE 80; RESP 16; TEMP 35.8; O2SAT 100; BMI 42.8
--- NOTE | 2021-04-12 17:39 | RAD_ITS ---
STUDY: X-RAY - RIGHT KNEE REASON FOR EXAM: Female, 51 years old. FALL TECHNIQUE: 4 view(s) of the knee. COMPARISON: Right knee x-ray dated February 03, 2014. FINDINGS: Normal visualized distal femur. Normal visualized proximal tibia and fibula. Normal proximal tibiofibular articulation. There is no demonstrated fracture. There is moderate degenerative arthrosis of the medial femorotibial compartment with moderate joint space narrowing. Normal lateral femorotibial compartment. There is mild degenerative arthrosis of the patellofemoral articulation. There is a soft tissue prominence in the suprapatellar region suggesting a small volume joint effusion. The soft tissue structures are unremarkable. RAD/Knee 4 or More Views IMPRESSION: Degenerative arthrosis. Small joint effusion. Electronically Signed: Phillip Kuo MD at 19:17 EDT , Service support ,
[2021-04-12 19:05] LABS: International Normalized Ratio 3.9; Prothrombin Time (Protime)PT. 37.6 SECONDS (11.7-14.9)
--- NOTE | 2021-04-12 19:13 | RAD_ITS ---
STUDY: X-RAY - RIGHT TIBIA AND FIBULA REASON FOR EXAM: Female, 51 years old. pt fell last robbi, pain, swelling, bruising, redness, heat, of entire right leg TECHNIQUE: 2 view(s) of the tibia and fibula were obtained. COMPARISON: None. FINDINGS: Normal visualized tibia. Normal visualized fibula. There is no demonstrated acute fracture. The medial compartment of the knee is narrowed. There is mild nonspecific diffuse soft tissue swelling of the lower leg. RAD/Tibia & Fibula 2 Views IMPRESSION: 1. Mild soft tissue swelling Electronically Signed: Phillip Kuo MD at 20:54 EDT , Service support ,
--- NOTE | 2021-04-12 19:24 | EDS_ITS ---
HPI HPI - Fall History of Present Illness Chief Complaint: Fall Informant: patient Narrative Narrative: Presents with mechanical fall 5 days ago due to slippery steps outside. No head injuries. Pain to right knee. Patient on warfarin history of factor V Leiden with multiple blood clots in the past. Unknown on her last INR. She thinks her tetanus is in the last 5 years. She is able to ambulate, is bruising throughout the whole leg however improving from initially. No other complaints. Tetanus Immunization: <5 years PFSH PFSH Medical History Abnormal Pap smear of cervix Anxiety Chest pain Factor V deficiency Migraine SOB (shortness of breath) Home Medications warfarin 4 mg tablet 4 mg PO MO 10/01/17 [History Last Taken Unknown] warfarin 6 mg tablet 6 mg PO SUTUWETHFRSA 10/01/17 [History Last Taken Unknown] fluoxetine 50 mg PO DAILY 09/05/20 [History Last Taken Unknown] ondansetron 4 mg PO Q8H PRN PRN #10 tab 03/02/21 [Rx Last Taken Unknown] propranolol 40 mg PO DAILY 03/02/21 [History Last Taken Unknown] Allergy/AdvReac Type Severity Reaction Status Date / Time codeine AdvReac Vomiting Verified 04/12/21 17:36 hydrocodone bitartrate AdvReac Pain in Verified 04/12/21 17:36 [From Vicodin] joints Family History Father Diabetes Congestive heart failure Asthma Mother Congestive heart failure Surgical History delivery delivered History of cholecystectomy Social History household members: none Smoking Status: Never smoker alcohol intake: never substance use type: does not use caffeine: Yes what type of physical activity do you participate in: walking seatbelt use: always do you feel safe at home: Yes additional social history: - [employer] ROS ROS ED Constitutional Constitutional ED: Denies chills, fever(s) or sweats Eyes Eyes: Denies change in vision ENT ENT ED: Denies dysphagia or sore throat Cardiovascular Cardiovascular: Denies chest pain, leg edema, palpitations or racing heartbeat Respiratory/Chest Respiratory/Chest: Denies cough, dyspnea or dyspnea on exertion Gastrointestinal Gastrointestinal: Denies abdominal pain, diarrhea, nausea or vomiting Genitourinary Genitourinary ED: Denies dysuria, hematuria or urinary frequency Musculoskeletal Musculoskeletal: Reports other Details: Right lower extremity injury ; Denies back pain, extremity pain or neck pain Integumentary Denies rash or wounds Neurologic Neurologic: Denies headache(s), paresthesias or weakness EXAM Physical Exam Const Vital Signs: 04/12/21 17:36 Temperature 96.5 F L Temperature Source Temporal Pulse Rate 80 Respiratory Rate 16 Blood Pressure 143/72 H Blood Pressure Mean 95 Pulse Ox 100 Oxygen Delivery Method Room Air Positive well nourished and well developed General Appearance ED: well developed and NAD HEENT Reports moist mucous membranes normocephalic and atraumatic Eyes PERRL, EOMs intact bilaterally and conjunctivae normal General Eye ED: Yes normal appearance of both eyes Neck no lymphadenopathy and supple General: Negative for tenderness Chest Wall Chest: Negative for tenderness Resp normal respiratory effort and normal air movement Effort and Inspection: symmetric chest movement; Negative for respiratory distress Cardio regular rate, regular rhythm and no murmurs Peripheral Pulses: pulses 2+ throughout GI normal to inspection, nondistended, normoactive bowel sounds and non-tender Palpation: Negative for guarding or rebound tenderness present Back/Spine no CVA tenderness and no thoracic nor lumbar tenderness Extremity Extremity Narrative: Right lower extremity: Negative logroll. Extensive bruising distal lateral thigh to the lower extremity. Skin intact. There is abrasion at the patellar. Knee extensor mechanism intact. There is no active bleeding. Negative varus and valgus. There is tenderness upon lateral mid fibula. No deformities. No ankle tenderness. No foot tenderness. Neurovascular intact distally. Neuro oriented x3 and no sensory deficits noted Sensorium / Orientation: awake and alert Skin no rashes or lesions noted and no wounds MDM MDM MDM Narrative Medical decision making narrative: Triage protocol obtain right knee films which were negative for acute process small joint effusion noted. She is tender lateral mid fibula, tib-fib was added two views reviewed by myself shows no acute process. INR returned at 3.9. She took her Coumadin this morning. His medications and adjustments managed by her PCP. She will call PCP office tomorrow for holding and adjustments of medications. She is able to ambulate. Declines crutches. Laci wrap due to bruising and swelling discussed monitoring. All questions were answered. She will use Tylenol as needed. Lab Data Attestation: I reviewed the patient's lab results. Labs: Laboratory Results - last 24 hr 04/12/21 18:40 PT 37.6 H INR 3.9 Radiography Diagnostic Testing: Clinical Impression(s) from Imaging Studies Knee X-Ray 04/12/21 17:39 IMPRESSION: Degenerative arthrosis. Small joint effusion. Electronically Signed: Phillip Kuo MD at 19:17 EDT , Service support , Tibia/Fibula X-Ray 04/12/21 19:13 IMPRESSION: 1. Mild soft tissue swelling Electronically Signed: Phillip Kuo MD at 20:54 EDT , Service support , Discharge Plan Triage Chief Complaint: Fall ED Provider: Larry Longoria Dx/Rx/DC Orders Clinical Impression: Contusion of right knee and lower leg, Supratherapeutic INR Instructions: ED Soft Tissue Contusion Prescriptions: No Action warfarin 4 mg tablet 4 mg PO MO RF: 0 warfarin 6 mg tablet 6 mg PO SUTUWETHFRSA RF: 0 fluoxetine 20 MG capsule 50 mg PO DAILY RF: 0 propranolol 20 mg Tablet 40 mg PO DAILY RF: 0 ondansetron [ondansetron] 4 MG tablet 4 mg PO Q8H PRN PRN (Reason: Nausea) Qty: 10 RF: 0 Primary Care Provider: Handy Mike Referrals: Handy Mike DO [Primary Care Provider] - 1 Week if not improving Activity Restrictions/Additional Instructions: Your INR is 3.9 today. Call your physician tomorrow for holding and adjustments as needed. Continue Laci wrap. X-ray of right knee and right lower leg negative for any acute process. Disposition Disposition: Home, Self Care Discharge Date/Time: 04/12/21 20:28
== END 2021-04-12 20:28 | disposition home or self-care (01) ==
PROVIDERS: Emergency Provider Emergency Medicine; PCP Student in an Organized Health Care Education/Training Program
DX: S80.01XA Contusion of right knee, initial encounter (principal); S80.11XA Contusion of right lower leg, initial encounter; W10.9XXA Fall (on) (from) unspecified stairs and steps, initial encounter; Y93.9 Activity, unspecified; Y92.9 Unspecified place or not applicable; Y99.9 Unspecified external cause status; D68.51 Activated protein C resistance; F41.9 Anxiety disorder, unspecified; Z79.01 Long term (current) use of anticoagulants; Z79.899 Other long term (current) drug therapy; Z86.718 Personal history of other venous thrombosis and embolism
CPT/HCPCS: 73564; 73590; 85610; 99283; A4216

== ENCOUNTER 2022-09-13 13:15 | Emergency (ER) | payer MEDICAID, SELFPAY ==
[2022-09-13 13:16] VITALS: BP 125/82; PULSE 68; RESP 18; TEMP 36.6; O2SAT 96; BMI 43.7
--- NOTE | 2022-09-13 14:28 | ED.VIS.FALL ---
HPI HPI - Fall History of Present Illness Chief Complaint: Fall Informant: patient Occured/Mechanism Occurred: Today Narrative: Patient missed a step and fell down 2 steps Fall down steps #: 2 Usually ambulates: Without assistance Pain/Injury Pain Location: face, upper extremity (Right hand) and lower extremity (Right knee) Quality of Pain: Burning Worsened by: Nothing Relieved by: Nothing Associated Symptoms Associated Symptoms: Negative for Parasthesias, Weakness, Loss of function, Inability to ambulate or Loss of consciousness Narrative Narrative: Patient presents after a fall that occurred today. Patient missed a step and fell down 2 steps. Patient hit her upper lip, right hand, and right knee. Patient describes her pain as burning. Patient states nothing makes it worse and nothing makes it better. Patient is unsure of her last tetanus. Patient is on Coumadin for factor V deficiency. Patient does admit to a mild headache. Patient denies any paresthesias or weakness. Patient denies any nausea or vomiting. Patient denies any visual changes. Tetanus Immunization: Unknown [facility] Medical History Abnormal Pap smear of cervix Anxiety Chest pain Factor V deficiency Migraine SOB (shortness of breath) Home Medications warfarin 4 mg tablet 4 mg PO Saturday10/01/17 [History Last Taken Unknown] warfarin 6 mg tablet 6 mg PO SUTUWETHFRSA 10/01/17 [History Last Taken Unknown] fluoxetine 20 mg capsule 50 mg PO DAILY 09/05/20 [History Last Taken Unknown] ondansetron 4 mg disintegrating tablet 4 mg PO Q8H PRN PRN Nausea #10 tabs 03/02/21 [Rx Last Taken Unknown] propranolol 20 mg tablet 40 mg PO DAILY 03/02/21 [History Last Taken Unknown] Allergy/AdvReac Type Severity Reaction Status Date / Time codeine AdvReac Vomiting Verified 09/13/22 13:19 hydrocodone bitartrate AdvReac Pain in Verified 09/13/22 13:19 [From Vicodin] joints Family History Father Diabetes Congestive heart failure Asthma Mother Congestive heart failure Surgical History delivery delivered History of cholecystectomy Social History household members: none Smoking Status: Never smoker alcohol intake: never substance use type: does not use caffeine: Yes what type of physical activity do you participate in: walking seatbelt use: always do you feel safe at home: Yes additional social history: - [employer] ROS ROS ED Constitutional Constitutional ED: Denies chills or fever(s) Eyes Eyes: Denies blurry vision or change in vision ENT ENT ED: Denies rhinorrhea or sore throat Cardiovascular Cardiovascular: Denies chest pain or palpitations Respiratory/Chest Respiratory/Chest: Denies cough or dyspnea Gastrointestinal Gastrointestinal: Denies nausea or vomiting Genitourinary Genitourinary ED: Denies dysuria or hematuria Musculoskeletal Musculoskeletal: Denies back pain or neck pain Integumentary Reports Abrasions; Denies abscess or rash Neurologic Neurologic: Reports headache(s); Denies weakness Allergic/Immunologic Allergic/Immunologic ED: Denies mouth swelling or urticaria EXAM Physical Exam Const Vital Signs: 09/13/22 13:16 09/13/22 13:23 09/13/22 15:54 Temperature 97.9 F Temperature Source Temporal Pulse Rate 68 62 Respiratory Rate 18 16 Respiratory Effort Normal Blood Pressure 125/82 H 130/66 H Blood Pressure Mean 96 87 Pulse Ox 96 98 Oxygen Delivery Method Room Air Room Air Positive well nourished, well developed and obese General Appearance ED: well developed and NAD Nutritional Appearance: obese HEENT Reports moist mucous membranes HEENT Narrative: There is a 1.5 cm linear laceration to the mucosal surface of the upper lip to the left of midline. There is a superficial abrasion and skin tear over the external surface of the upper lip to the left of midline. There is no connection between the abrasion and laceration. There is minimal gapping of the wound margins. There is no active bleeding noted. There is mild edema of the upper lip. Teeth are intact. Eyes PERRL and EOMs intact bilaterally Neck full ROM, supple and no JVD Resp normal respiratory effort and clear to auscultation bilaterally Cardio regular rate and regular rhythm GI normal to inspection, nondistended, normoactive bowel sounds and non-tender Palpation: soft Extremity normal to inspection Extremity Narrative: There is mild tenderness over the right hand over the base of the second metacarpal. There is some edema and ecchymosis on the dorsal aspect of the right hand over this area. There is no bony crepitance or step-off. There is no obvious deformity noted. There is good range of motion of the right hand. There is also tenderness in the upper facial abrasion over the anterior lateral aspect of the right knee. There is some mild edema. There is no ecchymosis. There is no deformity noted. Extensor mechanism is intact. Range of motion was limited in all motions of the right knee secondary to pain. Strength is 5/5 bilateral in the upper and lower extremities. There are no sensory deficits noted. General Extremety ED: Negative for edema or tenderness General Extremity: Negative for edema Neuro oriented x3, CN's II-XII intact bilaterally and no sensory deficits noted Sensorium / Orientation: alert Motor Exam: strength 5/5 throughout Psych mental status grossly normal Skin no rashes or lesions noted Trauma: abrasion MDM MDM MDM Narrative Medical decision making narrative: Differential diagnosis includes lip laceration, abrasion, concussion, intracranial bleeding, right hand contusion, right hand fracture, right knee contusion, right knee fracture, and right knee sprain. X-rays of the right knee will be obtained to assess for fracture. X-rays of the right hand will be obtained to assess for fracture. CT scan of the brain will be obtained to assess for intracranial bleeding. Radiography Diagnostic Testing: Clinical Impression(s) from Imaging Studies Brain CT 09/13/22 14:34 IMPRESSION: No acute intracranial findings. Electronically Signed: Medhat Matthews MD at 16:09 EDT , Knee X-Ray 09/13/22 14:34 IMPRESSION: Predominant medial compartment arthrosis as above with no evidence of acute fracture. Electronically Signed: Edgardo Hastings DO at 16:14 EDT , Hand X-Ray 09/13/22 14:50 IMPRESSION: No acute bony injury. Electronically Signed: Medhat Matthews MD at 16:18 EDT , CT scan of the brain was obtained. There is no acute intracranial abnormality. This was interpreted by the radiologist and was also independently reviewed by myself. X-rays of the right hand were obtained. There are 3 views. On my independent interpretation, there is no acute fracture. There is no dislocation. There is no soft tissue swelling. Radiologist also interpreted the x-rays and agrees. X-rays of the right knee were obtained. There are 4 views. On my independent interpretation, there is no acute fracture. There is no dislocation. There is some mild soft tissue swelling. Radiologist also interpreted the x-rays and agrees. Treatment and Re-Evaluation Narrative: Patient was advised that the lacerations will not require suturing. Patient was given a tetanus booster. Patient was advised of her findings. Bacitracin dressing was applied to the upper lip preparation. Patient was instructed to keep the area clean and dry. Patient was instructed to follow-up with her primary care physician in 5 to 7 days. Patient understood and was agreeable with the plan. All questions were answered. Discharge Plan Triage Chief Complaint: Fall ED Provider: Dillon Genao Dx/Rx/DC Orders Clinical Impression: Fall, Contusion of right hand, Contusion of right knee, initial encounter, Abrasion of lip, initial encounter, Laceration of lip Instructions: ED Abrasion, ED Contusion, Lower Extremity, ED Contusion, Upper Extremity Prescriptions: No Action warfarin 4 mg tablet 4 mg PO MO warfarin 6 mg tablet 6 mg PO SUTUWETHFRSA fluoxetine 20 MG capsule 50 mg PO DAILY propranolol 20 mg Tablet 40 mg PO DAILY ondansetron [ondansetron] 4 MG tablet 4 mg PO Q8H PRN PRN (Reason: Nausea) Qty: 10 0RF Primary Care Provider: Handy Mike Referrals: Handy Mike DO [Primary Care Provider] - 5-7 Days Disposition Disposition: Home, Self Care
--- NOTE | 2022-09-13 14:34 | RAD_ITS ---
STUDY: X-RAY - RIGHT KNEE REASON FOR EXAM: Female, 52 years old. Injury/Pain TECHNIQUE: 3 view(s) of the knee. COMPARISON: None. FINDINGS: There is demineralization of the visualized distal femur. There is demineralization of the tibia and fibula. Normal proximal tibiofibular articulation. There is mild degenerative arthrosis of the medial femorotibial compartment. There is mild degenerative arthrosis of the lateral femorotibial compartment. There is mild degenerative arthrosis of the patellofemoral articulation. The soft tissue structures are unremarkable. RAD/Knee 4 or More Views IMPRESSION: Predominant medial compartment arthrosis as above with no evidence of acute fracture. Electronically Signed: Edgardo Hastings DO at 16:14 EDT ,
--- NOTE | 2022-09-13 14:34 | CT_ITS ---
INDICATION: Trauma, fall, blood thinner treatment EXAMINATION: CT BRAIN - CT Head or Brain W/O Contrast Injection TECHNIQUE: Multiple axial images were obtained of the head without intravenous contrast. A radiation dose optimization technique was used for this scan. IV Contrast dosage and agent: None. COMPARISON: 09/06/2020 FINDINGS: BRAIN PARENCHYMA: No intra- or extra-axial hemorrhage. No evidence of acute infarct. No intracranial mass or mass effect. Posterior fossa structures are unremarkable. CSF SPACES: Appropriate for age. No hydrocephalus. Basal cisterns are patent. CALVARIUM, SKULL BASE, PARANASAL SINUSES AND MASTOID AIR CELLS: Clear. No acute fracture. ORBITS: Both globes, extraocular muscles, optic nerves and retrobulbar fat appear unremarkable. CT/Brain/Head without Contrast IMPRESSION: No acute intracranial findings. Electronically Signed: Medhat Matthews MD at 16:09 EDT ,
[2022-09-13] MEDS: Diphth,Pertuss(Acell),Tet Vac 0.5 ML Vial IM (14:44)
--- NOTE | 2022-09-13 14:50 | RAD_ITS ---
INDICATION: Trauma, fall, hand injury with pain EXAMINATION/TECHNIQUE: X-RAY - RIGHT XR Hand Min 3 Views 3 VIEWS COMPARISON: None. FINDINGS: SOFT TISSUES: Focal skin defect at the third and fourth PIP joint. No radiopaque foreign body. BONES/JOINTS: No acute fracture. Joint spaces anatomically aligned. No sclerotic or destructive changes observed. RAD/Hand Min 3 Views IMPRESSION: No acute bony injury. Electronically Signed: Medhat Matthews MD at 16:18 EDT ,
[2022-09-13 15:54] VITALS: BP 130/66; PULSE 62; RESP 16; O2SAT 98
== END 2022-09-13 16:27 | disposition home or self-care (01) ==
PROVIDERS: Emergency Provider Emergency Medicine; PCP Student in an Organized Health Care Education/Training Program; Visit Provider Emergency Medicine
DX: S01.511A Laceration without foreign body of lip, initial encounter (principal); D68.2 Hereditary deficiency of other clotting factors; S80.01XA Contusion of right knee, initial encounter; S60.221A Contusion of right hand, initial encounter; R51.9 Headache, unspecified; W10.9XXA Fall (on) (from) unspecified stairs and steps, initial encounter; Z79.01 Long term (current) use of anticoagulants; Z23 Encounter for immunization
CPT/HCPCS: 70450; 73130; 73564; 90471; 90715; 99282

== ENCOUNTER 2023-07-31 23:02 | Emergency (ER) | payer MEDICAID, SELFPAY ==
[2023-07-31 23:05] VITALS: BP 104/70; PULSE 87; RESP 24; TEMP 36.7; O2SAT 97
--- NOTE | 2023-08-01 | RAD_ITS ---
STUDY: X-RAY CHEST REASON FOR EXAM: Female, 53 years old patient with shortness of breath. TECHNIQUE: PA and lateral views of the chest. COMPARISON: March 02, 2021. FINDINGS: There is interstitial thickening present in both lungs with some peribronchial cuffing. There may be some patchy left basilar airspace disease. There is also groundglass attenuation at the right lung base. The lungs are under expanded. There is no demonstrated pleural abnormality. There is mild cardiac enlargement. Normal mediastinum and suzanna. Normal visualized pulmonary arteries. There is atherosclerotic calcification of the aortic arch with tortuosity. The bones appear osteopenic. There appear to be several compression fractures of the mid thoracic spine. There is increased thoracic kyphosis. Normal visualized ribs, clavicles, and shoulders. There is no demonstrated abnormality of the visualized soft tissue structures of the upper abdomen. RAD/Chest PA and Lateral IMPRESSION: 1. Findings suggest acute exacerbation of reactive airway disease and/or viral infection. 2. Bilateral basilar airspace disease may represent multifocal pneumonia. Electronically Signed: Carolann Alvarez MD at 1:44 EST ,
--- OUTSIDE RECORDS SUMMARY | 2023-08-01 00:08 | XMS RPT_ITS | CCD ---
Author Name Unknown Address [address] [place] [address] Organization [facility] Care Team Providers Care Chartered Accountant Name Role Phone Handy Hurst DO Primary Care Provider HANDY HURST Primary Care Unavailable SHELLY HUYNH Referring Unavailable HANDY HURST Primary Care Unavailable SHELLY HUYNH Attending Unavailable HANDY HURST Referring Unavailable HANDY HURST Primary Care Unavailable HANDY HURST Attending Unavailable HANDY HURST Primary Care Unavailable HANDY HURST Primary Care Unavailable MARIAA HUYNHEKAH Referring Unavailable HANDY HURST Primary Care Unavailable AMINA, SHELLY Attending Unavailable CORTNEY JORDAN Referring Unavailable HANDY HURST Primary Care Unavailable HANDY HURST Primary Care Unavailable AMINA, SHELLY Referring Unavailable HANDY HURST Primary Care Unavailable SHELLY HUYNH Attending Unavailable Allergies Allergy Classification Reported Allergen(s) Allergy Type Date of Onset Reaction(s) Facility (20 sources) Acetaminophen / HYDROcodone; Translations: [HYDROCODONE-ACET AMINOPHEN] Drug Allergy 8 GI Upset [facility] Work Phone: (20 sources) Eiovgsz-Rct-Oczuj qy-Zyrsio-Zeu; Translations: [[id number]] Propensity to adverse reactions 8 Shortness of Breath [facility] Work Phone: (2 sources) topiramate; Translations: [TOPIRAMATE] Drug Allergy 4 Other: See Comments [facility] Work Phone: Medications Current Medications Medication Drug Class(es) Dates Sig (Normalized) Sig (Original) 12 hr buPROPion hydrochloride 150 mg extended release oral tablet (1 source) Aminoketone Start: 07-17-2023 End: 01-13-2024 take 1 tablet by mouth twice daily buPROPion SR (WELLBUTRIN SR) 150 mg 12 hr tablet Indications: Obesity, Class III, BMI 40-49.9 (morbid obesity) (HCC) , Generalized anxiety disorder Take 1 tablet by mouth two times a day. 60 tablet 5 07/17/2023 01/13/2024 Active Completed/Discontinued Medications Medication Drug Class(es) Dates Sig (Normalized) Sig (Original) busPIRone hydrochloride 7.5 mg oral tablet (20 sources) Start: 01-09-2023 take 1 tablet by mouth at bedtime as needed busPIRone (BUSPAR) 7.5 mg tablet Indications: Situational insomnia Take 1 tablet by mouth at bedtime as needed (INSOMNIA). 30 tablet 1 01/09/2023 Active Problems Active Problems Problem Classification Problem Date Documented Date Episodic/Chronic Anxiety disorders (20 sources) Generalized anxiety disorder; Translations: [Generalized anxiety disorder] Onset: 11-05-2008 01-16-2010 Chronic Aortic and peripheral arterial embolism or thrombosis (20 sources) Vascular disorder; Translations: [Embolism and thrombosis of unspecified artery] Onset: 05-21-2008 01-16-2010 Chronic Coagulation and hemorrhagic disorders (20 sources) Factor V Leiden mutation; Translations: [Activated protein C resistance] Onset: 06-01-2008 Chronic Disorders of lipid metabolism (3 sources) Dyslipidemia; Translations: [Hyperlipidemia, unspecified] Onset: 10-16-2022 Chronic Esophageal disorders (2 sources) Gastroesophageal reflux disease without esophagitis; Translations: [Gastro-esophageal reflux disease without esophagitis] Onset: 01-16-2023 01-16-2023 Chronic Genitourinary symptoms and ill-defined conditions (1 source) Scalding pain on urination ; Translations: [Dysuria] Episodic Headache; including migraine (20 sources) Migraine; Translations: [Migraine, unspecified, not intractable, without status migrainosus] 01-16-2010 Chronic Menstrual disorders (20 sources) Menorrhagia; Translations: [Excessive and frequent menstruation with regular cycle] Onset: 10-14-2014 10-14-2014 Chronic Miscellaneous mental health disorders (20 sources) Insomnia; Translations: [Other insomnia not due to a substance or known physiological condition] Onset: 10-06-2021 Chronic Nutritional deficiencies (20 sources) Vitamin D deficiency; Translations: [Vitamin D deficiency, unspecified] Onset: 01-17-2016 01-17-2016 Chronic Other aftercare (20 sources) Anticoagulant effect; Translations: [FDC (current) use of anticoagulants] Onset: 07-16-2012 Episodic Other female genital disorders (20 sources) Abnormal uterine bleeding; Translations: [Abnormal uterine and vaginal bleeding, unspecified] Onset: 10-14-2014 10-14-2014 Chronic Other liver diseases (2 sources) Steatosis of liver; Translations: [Fatty (change of) liver, not elsewhere classified] Chronic Other liver diseases (1 source) Fatty (change of) liver, not elsewhere classified; Translations: [Fatty liver] Onset: 10-16-2022 Chronic Other liver diseases (2 sources) Alkaline phosphatase raised; Translations: [Abnormal levels of other serum enzymes] Episodic Other lower respiratory disease (2 sources) Cough; Translations: [Subacute cough] 05-13-2023 Episodic Other nervous system disorders (20 sources) Idiopathic peripheral neuropathy; Translations: [Hereditary and idiopathic neuropathy, unspecified] Onset: 10-26-2016 10-26-2016 Chronic Other nervous system disorders (20 sources) Neuropathy; Translations: [Polyneuropathy, unspecified] Onset: 10-26-2016 10-26-2016 Chronic Other nervous system disorders (1 source) Other chronic pain; Translations: [Chronic pain of right knee] Onset: 04-15-2023 Chronic Other nutritional; endocrine; and metabolic disorders (20 sources) Body mass index 40+ - severely obese; Translations: [Morbid (severe) obesity due to excess calories] Onset: 07-16-2012 07-16-2012 Chronic Other nutritional; endocrine; and metabolic disorders (20 sources) Cholesterol level - finding; Translations: [Lipoprotein deficiency] Onset: 07-16-2012 07-16-2012 Chronic Other nutritional; endocrine; and metabolic disorders (1 source) Morbid (severe) obesity due to excess calories; Translations: [Obesity, Class III, BMI 40-49.9 (morbid obesity) (HCC)] Onset: 01-16-2023 Chronic Spondylosis; intervertebral disc disorders; other back problems (1 source) Acute low back pain; Translations: [Acute low back pain without sciatica, unspecified back pain laterality] Episodic Unclassified (1 source) Subacute cough; Translations: [Subacute cough] Onset: 05-13-2023 Urinary tract infections (2 sources) Acute cystitis; Translations: [Acute cystitis with hematuria] Episodic Viral infection (1 source) Disease caused by 2019-nCoV; Translations: [COVID-19] 05-08-2023 Episodic Past or Other Problems Problem Classification Problem Date Documented Da te Episodic/Chronic Allergic reactions (2 sources) Irritant contact dermatitis; Translations: [Irritant contact dermatitis, unspecified cause] Onset: 01-16-2023 01-16-2023 Episodic Deficiency and other anemia (2 sources) Nutritional anemia; Translations: [Vitamin B12 deficiency anemia, unspecified] Onset: 08-09-2015 08-09-2015 Episodic Deficiency and other anemia (20 sources) Anemia; Translations: [Anemia, unspecified] Onset: 08-09-2015 Episodic Malaise and fatigue (20 sources) Fatigue; Translations: [Other fatigue] Onset: 10-06-2021 Episodic Nutritional deficiencies (20 sources) Iron deficiency; Translations: [Iron deficiency] Onset: 06-25-2022 Episodic Other aftercare (20 sources) Long-term current use of anticoagulant; Translations: [FDC (current) use of anticoagulants] Onset: 10-26-2016 10-26-2016 Episodic Other aftercare (1 source) FDC (current) use of anticoagulants; Translations: [Anticoagulated on Coumadin] Onset: 10-06-2021 Episodic Other non-traumatic joint disorders (2 sources) Pain in right knee; Translations: [Pain in joint, lower leg] Onset: 04-15-2023 04-15-2023 Episodic Other screening for suspected conditions (not mental disorders or infectious disease) (20 sources) Patient encounter status; Translations: [Encounter for screening mammogram for malignant neoplasm of breast] Onset: 10-26-2016 10-26-2016 Episodic Other skin disorders (20 sources) Disorder of hand; Translations: [Disorder of the skin and subcutaneous tissue, unspecified] Onset: 07-16-2012 07-16-2012 Episodic Other skin disorders (20 sources) Loss of hair; Translations: [Nonscarring hair loss, unspecified] Onset: 10-06-2021 Episodic Ovarian cyst (20 sources) Cyst of ovary; Translations: [Unspecified ovarian cyst, unspecified side] Onset: 10-20-2014 10-20-2014 Episodic Residual codes; unclassified (20 sources) Edema of right lower leg; Translations: [Localized edema] Onset: 06-25-2022 Episodic Varicose veins of lower extremity (20 sources) Varicose veins of lower extremity; Translations: [Varicose veins of bilateral lower extremities with other complications] Onset: 06-25-2022 Episodic Results Test Name Value Interpretation Reference Range Facil ity Vital Signs Date Time Vital Sign Value Performing Clinician Shruti morel 07-17-2023 12:43-0500 Body weight 122.92 kg Shelly Amina DISABILITY ATTORNEY.DISABILITY ATTORNEY Work Phone: [facility] 07-17-2023 12:43-0500 Diastolic blood pressure 86 mm[Hg] Shelly Amina DISABILITY ATTORNEY.DISABILITY ATTORNEY Work Phone: [facility] 07-17-2023 12:43-0500 Heart rate 63 /min Shelly Amina DISABILITY ATTORNEY.DISABILITY ATTORNEY Work Phone: [facility] 07-17-2023 12:43-0500 Respiratory rate 16 /min Shelly Amina DISABILITY ATTORNEY.DISABILITY ATTORNEY Work Phone: [facility] 07-17-2023 12:43-0500 SaO2% (BldA) [Mass fraction] 96 % Shelly Amina DISABILITY ATTORNEY.DISABILITY ATTORNEY Work Phone: [facility] 07-17-2023 12:43-0500 Systolic blood pressure 118 mm[Hg] Shelly Amina DISABILITY ATTORNEY.DISABILITY ATTORNEY Work Phone: [facility] 04-15-2023 07:05-0500 Body weight 123.11 kg Shelly Amina DISABILITY ATTORNEY.DISABILITY ATTORNEY Work Phone: [facility] 04-15-2023 07:05-0500 Diastolic blood pressure 72 mm[Hg] Shelly Amina DISABILITY ATTORNEY.DISABILITY ATTORNEY Work Phone: [facility] 04-15-2023 07:05-0500 Heart rate 75 /min Shelly Amina DISABILITY ATTORNEY.DISABILITY ATTORNEY Work Phone: [facility] 04-15-2023 07:05-0500 Respiratory rate 16 /min Shelly Amina DISABILITY ATTORNEY.DISABILITY ATTORNEY Work Phone: [facility] 04-15-2023 07:05-0500 SaO2% (BldA) [Mass fraction] 99 % Shelly Amina DISABILITY ATTORNEY.DISABILITY ATTORNEY Work Phone: [facility] 04-15-2023 07:05-0500 Systolic blood pressure 110 mm[Hg] Shelly Amina DISABILITY ATTORNEY.DISABILITY ATTORNEY Work Phone: [facility] 01-16-2023 15:52-0400 Body weight 122.56 kg Shelly Amina DISABILITY ATTORNEY.DISABILITY ATTORNEY Work Phone: [facility] 01-16-2023 15:52-0400 Diastolic blood pressure 80 mm[Hg] Shelly Amina DISABILITY ATTORNEY.DISABILITY ATTORNEY Work Phone: [facility] 01-16-2023 15:52-0400 Heart rate 78 /min Shelly Amina DISABILITY ATTORNEY.DISABILITY ATTORNEY Work Phone: [facility] 01-16-2023 15:52-0400 Respiratory rate 16 /min Shelly Amina DISABILITY ATTORNEY.DISABILITY ATTORNEY Work Phone: [facility] 01-16-2023 15:52-0400 SaO2% (BldA) [Mass fraction] 98 % Shelly Amina DISABILITY ATTORNEY.DISABILITY ATTORNEY Work Phone: [facility] 01-16-2023 15:52-0400 Systolic blood pressure 122 mm[Hg] Shelly Amina DISABILITY ATTORNEY.DISABILITY ATTORNEY Work Phone: [facility] 10-16-2022 09:18-0400 Body temperature 98.01 [degF] Handy Hurst DO Work Phone: [facility] 10-16-2022 09:18-0400 Body weight 126.55 kg Handy Hurst DO Work Phone: [facility] 10-16-2022 09:18-0400 Diastolic blood pressure 80 mm[Hg] Handy Hurst DO Work Phone: [facility] 10-16-2022 09:18-0400 Heart rate 60 /min Handy Hurst DO Work Phone: [facility] 10-16-2022 09:18-0400 Respiratory rate 20 /min Handy Hurst DO Work Phone: [facility] 10-16-2022 09:18-0400 Systolic blood pressure 120 mm[Hg] Handy Hurst DO Work Phone: [facility] 06-25-2022 13:41-0500 Body temperature 98.8 [degF] Handy Hurst DO Work Phone: [facility] 06-25-2022 13:41-0500 Body weight 125.19 kg Handy Hurst DO Work Phone: [facility] 06-25-2022 13:41-0500 Diastolic blood pressure 80 mm[Hg] Handy Hurst DO Work Phone: [facility] 06-25-2022 13:41-0500 Heart rate 64 /min Handy Hurst DO Work Phone: [facility] 06-25-2022 13:41-0500 Respiratory rate 20 /min Handy Hurst DO Work Phone: [facility] 06-25-2022 13:41-0500 Systolic blood pressure 110 mm[Hg] Handy Hurst DO Work Phone: [facility] 05-28-2022 11:43-0500 Body temperature 97.59 [degF] Shelly Amina DISABILITY ATTORNEY.DISABILITY ATTORNEY Work Phone: [facility] 05-28-2022 11:43-0500 Body weight 125.56 kg Shelly Amina DISABILITY ATTORNEY.DISABILITY ATTORNEY Work Phone: [facility] 05-28-2022 11:43-0500 Diastolic blood pressure 84 mm[Hg] Shelly Amina DISABILITY ATTORNEY.DISABILITY ATTORNEY Work Phone: [facility] 05-28-2022 11:43-0500 Heart rate 66 /min Shelly Amina DISABILITY ATTORNEY.DISABILITY ATTORNEY Work Phone: [facility] 05-28-2022 11:43-0500 Respiratory rate 16 /min Shelly Amina DISABILITY ATTORNEY.DISABILITY ATTORNEY Work Phone: [facility] 05-28-2022 11:43-0500 SaO2% (BldA) [Mass fraction] 97 % Shelly Amina DISABILITY ATTORNEY.DISABILITY ATTORNEY Work Phone: [facility] 05-28-2022 11:43-0500 Systolic blood pressure 120 mm[Hg] Shelly Amina DISABILITY ATTORNEY.DISABILITY ATTORNEY Work Phone: [facility] 01-24-2022 16:03-0400 Body temperature 97.7 [degF] Handy Hurst DO Work Phone: [facility] 01-24-2022 16:03-0400 Body weight 126.55 kg Handy Hurst DO Work Phone: [facility] 01-24-2022 16:03-0400 Diastolic blood pressure 80 mm[Hg] Handy Hurst DO Work Phone: [facility] 01-24-2022 16:03-0400 Heart rate 64 /min Handy Hurst DO Work Phone: [facility] 01-24-2022 16:03-0400 Respiratory rate 16 /min Handy Hurst DO Work Phone: [facility] 01-24-2022 16:03-0400 Systolic blood pressure 110 mm[Hg] Handy Hurst DO Work Phone: [facility] 10-04-2021 16:28-0400 Body weight 123.83 kg Handy Hurst DO Work Phone: [facility] 10-04-2021 16:28-0400 Diastolic blood pressure 82 mm[Hg] Handy Hurst DO Work Phone: [facility] 10-04-2021 16:28-0400 Heart rate 61 /min Handy Hurst DO Work Phone: [facility] 10-04-2021 16:28-0400 SaO2% (BldA) [Mass fraction] 98 % Handy Hurst DO Work Phone: [facility] 10-04-2021 16:28-0400 Systolic blood pressure 116 mm[Hg] Handy Hurst DO Work Phone: [facility] Encounters Encounter Date Encounter Type Care Provider Facility Start: 07-17-2023 End: 07-18-2023 ambulatory HANDY HURST Facility:[facility] Start: 07-17-2023 End: 07-17-2023 Patient encounter procedure Shelly Amina DISABILITY ATTORNEY.DISABILITY ATTORNEY Work Phone: [facility] Procedures Date Procedure Procedure Detail Performing Clinician Start: 05-13-2023 Radiologic exam ches t 2 views Cortney Jordan DISABILITY ATTORNEY.DISABILITY ATTORNEY Work Phone: Start: 10-16-2022 Lipid 1996 panel - S virgil or Plasma Handy Hurst DO Work Phone: Start: 07-04-2022 Us abdominal real ti me w/image limited Handy Hurst DO Work Phone: Start: 05-28-2022 Urnls dip stick/tabl et rgnt auto w/o microscopy Shelly Amina DISABILITY ATTORNEY.DISABILITY ATTORNEY Work Phone: Start: 02-27-2022 Dxa bone density may dy 1/> sites axial skel Handy Hurst DO Work Phone: Start: 02-27-2022 End: 02-27-2022 Mammography Bulk Order Provider Start: 04-25-2021 Adult depression scr eening assessment Handy Hurst DO Work Phone: Start: 12-03-2019 Colonoscopy Handy Hidalgo risamandeep DO Work Phone: Start: 10-03-2017 Mammography Handy hudson DO Work Phone: Plan of Treatment Date Care Activity Detail Author Start: 09-13-2032 Urine microalbumin profile DTa P,Tdap,Td Vaccine (3 - Td or Tdap) [facility] Start: 12-02-2029 Colonoscopy COLONOSCOPY [facility] Start: 12-02-2029 COLORECTAL CANCER SCREENING COLORECTAL CANCER SCREENING [facility] Start: 12-02-2029 Screening for malign ant neoplasm of colon [facility] Start: 10-17-2027 Lipid 1996 panel - S virgil or Plasma Lipid Screening [facility] Start: 10-17-2027 Lipid panel Lipid Screening [facility] Start: 10-17-2027 LIPID SCREEN LIPID SCREEN [facility] Start: 01-23-2027 LIPID SCREEN LIPID SCREEN [facility] Start: 01-26-2026 Diabetes Screening Diabetes Screenin g [facility] Start: 10-16-2025 DIABETES SCREEN DIABETES SCREEN [facility] Start: 07-04-2025 DIABETES SCREEN DIABETES SCREEN [facility] Start: 01-23-2025 DIABETES SCREEN DIABETES SCREEN [facility] Start: 07-06-2024 DIABETES SCREEN DIABETES SCREEN [facility] Start: 04-15-2024 Hepatitis B Vaccine (1 of 3 - 3-dose series) Hepatitis B Vaccine (1 of 3 - 3-dose series) [facility] Immunizations Immunization Date Immunization Notes Care Provider Jana bose 02-18-2019 influenza virus vacc ine, unspecified formulation Handy Hurst DO Work Phone: [facility] 11-15-2008 tetanus toxoid, redu shruthi diphtheria toxoid, and acellular pertussis vaccine, adsorbed Handy Hurst DO Work Phone: [facility] Payers Date Payer Category Payer Medicaid [id number] 2022 Unknown [id number] 2021 Private Health Insurance [facility] [employer] [id number] 2021-Present [phone] [address] [place] [address] HMO [id number] 2021 Private Health Insurance [facility] CHO[employer]US [id number] 2021-Present [phone] [address] [place] [address] [facility] [id number] Social History Date Type Detail Facility Start: 10-20-2018 End: 05-28-2022 Tobacco smoking status NHIS Never smoked tobacco [facility] Start: 07-05-2021 End: 07-17-2023 Alcohol intake Current non-drinker of alcohol (finding) [facility] Start: 04-25-2021 End: 05-28-2022 History SDOH Alcohol Frequency 1 [facility] Start: 04-25-2021 End: 05-28-2022 History SDOH Alcohol Std Drinks 98 [facility] Start: 04-25-2021 End: 05-28-2022 History SDOH Social Connections Phone 2 [facility] Start: 04-25-2021 History SDOH Social Connections Living 5 [facility] Start: 04-25-2021 End: 05-28-2022 History SDOH Stress 3 [facility] Start: 04-06-2020 Education 14 [facility] Start: 1970 Sex Assigned At Not on file [facility] Start: 09-24-2021 End: 02-27-2022 Exposure to SARS-CoV-2 (event) Not sure [facility] Start: 10-20-2018 End: 05-28-2022 Tobacco use and exposure Smokeless tobacco non-user [facility] Work Phone: Start: 05-28-2022 History SDOH Alcohol Std Drinks 0 [facility] Start: 05-28-2022 History SDOH Social Connections Living 8 [facility] Start: 05-28-2022 End: 10-16-2022 History of Social function [facility] Start: 05-28-2022 End: 10-16-2022 Social connection and isolation panel [facility] In a typical week, h ow many times do you talk on the telephone with family, friends, or neighbors? Patient refused [facility] Are you now , , , , never or living with a partner? Living with partner [facility] How often to you hav e a drink containing alcohol? Never [facility] (I/We) worried ernestine er (my/our) food would run out before (I/we) got money to buy more. DK or Refused [facility] At any time in the p ast 12 months, were you homeless or living in senior care [including now]? No [facility] Clinical Notes 10-09-2010 to 07-17-2023 Shelly Huynh APRN.ROS - 07/17/2023 12:43 PM ESTTelephone Encounter - Leeann Cantu LPN - 05/13/2023 3:17 PM ESTTelephone Encounter - Cortney Jordan APRN.CNP - 05/13/2023 2:15 PM EST Note Date & Type Note Facility 07-17-2023 Note HNO ID: [id number] Author: SHELLY HUYNH APRN.ROS Service: ? Author Type: Nurse Practitioner Type: Progress Notes Filed: 07/17/2023 17:30 Note Text: Chief Complaint Patient presents with: F/U 3 Month HPI Vero Holt is a 53 year old female who presents here today for Above Complaints.. Currently: Only took Topamax for about a week that was previously prescribed to help with weight loss and possible migraine prevention, started having some double vision/blurriness when driving. Would like to eventually get off the propanolol for her migraines. Right now isn't a good time because she is starting a new job next Saturday. Requesting another medication to aid in weight loss. Past medical history, appointments, medications, allergies reviewed. Previous Medical History PAST MEDICAL HISTORY Diagnosis Date Blood dyscrasia DVT of upper extremity (deep vein thrombosis) (HCC) 2004 left upper arm after gallbladder surgery BEBE (generalized anxiety disorder) Migraine, unspecified, without mention of intractable migraine without mention of status migrainosus Nummular eczema 07/2014 Other acute embolism veins 2007 left leg Other and unspecified coagulation defects Factor V Leiden deficiency Symptomatic menopausal or female climacteric states perimenopausal Previous Surgical History PAST SURGICAL HISTORY Procedure Laterality Date DELIVERY ONLY 1996 , low cervical CHOLECYSTECTOMY 2004 Cholecystectomy COLONOSCOPY FLX DX W/COLLJ SPEC WHEN PFRMD 12/03/2019 Colonoscopy ESOPHAGOGASTRODUODENOSCOPY TRANSORAL DIAGNOSTIC 12/03/2019 EGD LIG/TRNSXJ FLP TUBE ABDL/VAG APPR UNI/BI 1996 Family History FAMILY HISTORY Problem Relation Age of Onset Diabetes Mother diet Thyroid Mother other (clotting disorder) Mother Factor V Leiden deficiency Hypertension Father asthma, DM Diabetes Father on pills Asthma Father Cancer Maternal Grandfather lung - smoker Stroke Paternal Grandmother age 84 Patient Allergies ALLERGIES Allergen Reactions [id number]-Xxb-Xdncsbe* Shortness of Breath Vicodin [Hydrocodon* GI Upset nausea Current Medications Current Outpatient Medications on File Prior to Visit Medication Sig furosemide (LASIX) 20 mg tablet Take 1 tablet by mouth two times a day. propranolol (INDERAL) 40 mg tablet Take 1 tablet by mouth once daily. FLUoxetine (PROZAC) 40 mg capsule Take 1 capsule by mouth once daily. FLUoxetine (PROZAC) 20 mg capsule Take 1 capsule by mouth once daily. Take with 40 mg capsule to total 60 mg a day triamcinolone acetonide (KENALOG) 0.1 % cream Apply 1 application to affected area three times daily. Apply sparingly to area for rash/itching. omeprazole (PRILOSEC) 20 mg capsule Take 1 capsule by mouth once daily. valACYclovir (VALTREX) 1 gram take 1 tablet by mouth three times a day for 7 days for herpes outbreaks busPIRone (BUSPAR) 7.5 mg tablet Take 1 tablet by mouth at bedtime as needed (INSOMNIA). warfarin (COUMADIN) 4 mg tablet Take 1 and 1/2 tablets (6mg) by mouth once daily EXCEPT 1 tablet (4mg) SATURDAY ferrous sulfate (SLOW FE) 140 mg (45 mg iron) TbER Take 1 tablet by mouth twice daily with meals. magnesium oxide 200 mg magnesium tab Take by mouth. Pt takes twice daily cholecalciferol, vitamin D3, 10 mcg (400 unit) cap Take 400 Units by mouth once daily. Pt takes twice daily vitamin B complex (B COMPLEX 1 ORAL) Take by mouth. topiramate (TOPAMAX) 50 mg tablet Take 1 tablet by mouth two times a day. No current facility-administered medications on file prior to visit. Social History Social History Tobacco Use Smoking status: Never Smokeless tobacco: Never Substance Use Topics Alcohol use: No Drug use: No Review of Symptoms REVIEW OF SYSTEMS See HPI, otherwise negative EXAM: BP 118/86 (BP Site: Left Arm, BP Position: Sitting, BP Cuff Size: Regular Adult) Pulse 63 Resp 16 Wt 122.9 kg (271 lb) LMP 07/30/2014 SpO2 96% BMI 46.52 kg/m? General Appearance: Well appearing, alert, in no acute distress, well-hydrated, well nourished. and Morbidly obese. Lungs: Lungs clear to auscultation. No wheezing, rhonchi, rales.. Heart: RRR without murmur, gallop, or rubs. No ectopy. Psychiatric: pleasant, cooperative. Health Maintenance List Covid-19 Vaccine(1) Never done Shingrix Vaccine(1 of 2) Never done Pap Testing due on 10/01/2022 HPV Testing due on 10/01/2022 Mammogram Screening due on 02/27/2023 Depression Assessment due on 06/10/2023 Influenza Vaccine(1) due on 12/08/2023 Hepatitis B Vaccine(1 of 3 - 3-dose series) due on 04/15/2024 Hepatitis C Screening due on 04/15/2024 HIV Screening due on 04/15/2024 Diabetes Screening due on 01/26/2026 Lipid Screening due on 10/17/2027 Colorectal Cancer Screening due on 12/02/2029 DTaP,Tdap,Td Vaccine(3 - Td or Tdap) due on 09/13/2032 Data reviewed Previous records, office notes ASSESSMENT/LIBBY (more content not included)... [facility] 07-17-2023 History of Present illness Narrative Chief Complaint Patient presents with: F/U 3 Month HPI Vero Holt is a 53 year old female who presents here today for Above Complaints.. Currently: Only took Topamax for about a week that was previously prescribed to help with weight loss and possible migraine prevention, started having some double vision/blurriness when driving. Would like to eventually get off the propanolol for her migraines. Right now isn't a good time because she is starting a new job next Saturday. Requesting another medication to aid in weight loss. Past medical history, appointments, medications, allergies reviewed. Previous Medical History PAST MEDICAL HISTORY Diagnosis Date Blood dyscrasia DVT of upper extremity (deep vein thrombosis) (HCC) 2004 left upper arm after gallbladder surgery BEBE (generalized anxiety disorder) Migraine, unspecified, without mention of intractable migraine without mention of status migrainosus Nummular eczema 07/2014 Other acute embolism veins 2007 left leg Other and unspecified coagulation defects Factor V Leiden deficiency Symptomatic menopausal or female climacteric states perimenopausal Previous Surgical History PAST SURGICAL HISTORY Procedure Laterality Date DELIVERY ONLY 1996 , low cervical CHOLECYSTECTOMY 2004 Cholecystectomy COLONOSCOPY FLX DX W/COLLJ SPEC WHEN PFRMD 12/03/2019 Colonoscopy ESOPHAGOGASTRODUODENOSCOPY TRANSORAL DIAGNOSTIC 12/03/2019 EGD LIG/TRNSXJ FLP TUBE ABDL/VAG APPR UNI/BI 1996 Family History FAMILY HISTORY Problem Relation Age of Onset Diabetes Mother diet Thyroid Mother other (clotting disorder) Mother Factor V Leiden deficiency Hypertension Father asthma, DM Diabetes Father on pills Asthma Father Cancer Maternal Grandfather lung - smoker Stroke Paternal Grandmother age 84 Patient Allergies ALLERGIES Allergen Reactions Pyrvlcq-Hdq-Zhuubog* Shortness of Breath Vicodin [Hydrocodon* GI Upset nausea Current Medications Current Outpatient Medications on File Prior to Visit Medication Sig furosemide (LASIX) 20 mg tablet Take 1 tablet by mouth two times a day. propranolol (INDERAL) 40 mg tablet Take 1 tablet by mouth once daily. FLUoxetine (PROZAC) 40 mg capsule Take 1 capsule by mouth once daily. FLUoxetine (PROZAC) 20 mg capsule Take 1 capsule by mouth once daily. Take with 40 mg capsule to total 60 mg a day triamcinolone acetonide (KENALOG) 0.1 % cream Apply 1 application to affected area three times daily. Apply sparingly to area for rash/itching. omeprazole (PRILOSEC) 20 mg capsule Take 1 capsule by mouth once daily. valACYclovir (VALTREX) 1 gram take 1 tablet by mouth three times a day for 7 days for herpes outbreaks busPIRone (BUSPAR) 7.5 mg tablet Take 1 tablet by mouth at bedtime as needed (INSOMNIA). warfarin (COUMADIN) 4 mg tablet Take 1 and 1/2 tablets (6mg) by mouth once daily EXCEPT 1 tablet (4mg) SATURDAY ferrous sulfate (SLOW FE) 140 mg (45 mg iron) TbER Take 1 tablet by mouth twice daily with meals. magnesium oxide 200 mg magnesium tab Take by mouth. Pt takes twice daily cholecalciferol, vitamin D3, 10 mcg (400 unit) cap Take 400 Units by mouth once daily. Pt takes twice daily vitamin B complex (B COMPLEX 1 ORAL) Take by mouth. topiramate (TOPAMAX) 50 mg tablet Take 1 tablet by mouth two times a day. No current facility-administered medications on file prior to visit. Social History Social History Tobacco Use Smoking status: Never Smokeless tobacco: Never Substance Use Topics Alcohol use: No Drug use: No Review of Symptoms REVIEW OF SYSTEMS See HPI, otherwise negative EXAM: BP 118/86 (BP Site: Left Arm, BP Position: Sitting, BP Cuff Size: Regular Adult) Pulse 63 Resp 16 Wt 122.9 kg (271 lb) LMP 07/30/2014 SpO2 96% BMI 46.52 kg/m General Appearance: Well appearing, alert, in no acute distress, well-hydrated, well nourished. and Morbidly obese. Lungs: Lungs clear to auscultation. No wheezing, rhonchi, rales.. Heart: RRR without murmur, gallop, or rubs. No ectopy. Psychiatric: pleasant, cooperative. Health Maintenance List Covid-19 Vaccine(1) Never done Shingrix Vaccine(1 of 2) Never done Pap Testing due on 10/01/2022 HPV Testing due on 10/01/2022 Mammogram Screening due on 02/27/2023 Depression Assessment due on 06/10/2023 Influenza Vaccine(1) due on 12/08/2023 Hepatitis B Vaccine(1 of 3 - 3-dose series) due on 04/15/2024 Hepatitis C Screening due on 04/15/2024 HIV Screening due on 04/15/2024 Diabetes Screening due on 01/26/2026 Lipid Screening due on 10/17/2027 Colorectal Cancer Screening due on 12/02/2029 DTaP,Tdap,Td Vaccine(3 - Td or Tdap) due on 09/13/2032 Data reviewed Previous records, office notes ASSESSMENT/PLAN: 1. Obesity, Class III, BMI 40-49.9 (morbid obesity) (HCC) - ICD9: 278.01, ICD10: E66.01 (primary diagnosis) Will begin bid Wellbutrin, follow up in 3 months, sooner if necessary. - BUPROPION HCL SR 150 MG TABLET,12 HR SUSTAINED-RELEASE 2. Generalized anxiety disorder - ICD9: 300.02, ICD10: F41.1 Will begin bid Wellbutrin, follow up in 3 months, sooner if necessary. - BUPROPION HCL SR 150 MG TABLET,12 HR SUSTAINED-RELEASE 3. Anticoagulated on Coumadin - ICD9: V58.61, ICD10: Z79.01 New standing order placed. - PROTHROMBIN TIME/PT Shelly Huynh APRN.DISABILITY ATTORNEY documented in this encounter [facility] 05-13-2023 Note HNO ID: [id number] Author: Irina Dalton RT(R) Service: ? Author Type: Natural Resources Instructor Type: Progress Notes Filed: 05/13/2023 4:41 PM Note Text: Radiology Service Progress Note PATIENT NAME: Vero Holt DATE OF SERVICE: May 13, 2023 TIME: 4:32 PM PATIENT IDENTITY VERIFICATION COMPLETED USING TWO (2) IDENTIFIERS: Name and Date of confirmed by patient verbally. FALL SCREENING: Has the patient had 2 falls in the last year or 1 fall with injury or currently using an Ambulatory Assistive Device (Walker, Cane, Wheelchair, Crutches, etc.)? No PATIENT GENDER DATA: Female. status: : No status: NO. PATIENT RELEVANT IMPLANT DATA REVIEWED: Yes RADIOLOGY DEPARTMENT: General X-ray: Exam(s) Completed: Chest X-Ray PERIPHERAL IV DATA: Not applicable SIGNED BY: RT Kalli(R) May 13, 2023 4:32 PM [facility] 05-13-2023 Miscellaneous Notes Pt. informed she is better other then cough. Pt able to take tessalon perles now. Continue these, can refill if needing more. Chest x-ray ordered. Per CDC guidelines, pt only needs to quarantine x 5 days if fever free and symptoms improving. Does pt feel she is improving? I have sent her the COVID work excuse note via [employer]. Let me know if this is good enough. Thank you, Cortney Jordan APRN.DISABILITY ATTORNEY Patient calls back and notified of this. Patient has not taken tessalon pearls for cough. Patient was not aware she could take them with Paxlovid. Patient states that she cannot take codeine due to a previous reaction she had. Patient had to call off work today due to cough. Patient states that work told her that they didn't want her back if she is coughing. Patient asking if provider can write a work excuse? Patient also asking if provider can place order for chest x ray. Patient states that she has been having issues since beginning of April. Please review and advise, Leisa Fuller RN Please see if patient is still taking tessalon perles for her cough or if she needs more? If so and still no relief, I can prescribe cough syrup with codeine in it for bedtime. Otherwise, I recommend rest and increase fluids. Thank you, Cortney Jordan APRN.DISABILITY ATTORNEY Pt calling with an update. Pt completed Paxlovid and she is still having symptoms. Pt has cough and cough up mucous and and green in color. Yesterday 05-12-23 had diarrhea and this has left today. Pt did not go into work because she has to wear a mask and can not stop coughing long enough and it makes it hard to breath with the mask on. Pt still achy . After she has been coughing for a steady period of time and will get a little short of breath. Denies fever, abdominal pain, diarrhea , vomiting. Please advise pt. Cherie Dejesus LPN documented in this encounter [facility] 05-09-2023 Miscellaneous Notes Pt called in and reports she was put on Medication for COVID and asking if she could take Advil or Tylenol. Question was asked to Jennifer Mercado CNP and she replied yes to either one. Pt does not have any allergies to Advil or Tylenol. Cherie Dejesus LPN documented in this encounter [facility] 05-08-2023 Miscellaneous Notes Patient notified and voiced her understanding. Yes, however I recommend having INR drawn after completion of this anti-viral. Thank you, Cortney Jordan APRN.ROS The following approved medication requests have been transmitted electronically. Requested Prescriptions Signed Prescriptions Disp Refills nirmatrelvir tablet 300 mg (150 mg x 2) and ritonavir tablet 100 mg in a dose pack (PAXLOVID) 30 tablet 0 Sig: Administer TWO pink nirmatrelvir 150 mg tablets and ONE white ritonavir 100 mg tablet for a total of three tablets twice daily. Authorizing Provider: CORTNEY JORDAN APRN.ROS Patient calling no pharmacy in [place] has the Molnupiravir in stock, pharmacist told her [place] [facility] is only pharmacy that has Paxlovid available. Patient asking if she should get that rx? Please advise documented in this encounter [facility] 05-08-2023 Note HNO ID: [id number] Author: Cortney Jordan APRN.CNP Service: ? Author Type: Nurse Practitioner Type: Progress Notes Filed: 05/08/2023 12:43 PM Note Text: This Team Access Model visit is a phone encounter. It required patient-provider interaction for the medical decision making as documented below. Patient agrees to the visit: Yes Patient Location: [place] CC: Patient presents with: Covid Positive HPI Vero Holt is a 53 year old female who is contacted today for a phone visit. This is an established patient of Dr. Handy Hurst DO. Concerns today... Cough/congestion ---- Started with bad sore throat at the beginning of the month. Suspected likely allergies due to no other symptoms. Started taking Claritin with some relief. Then started with cough and congestion last week. Started taking OTC medications without relief. Went to [facility] clinic on Saturday (05/03) and dx with bronchitis. Given z-cricket, tessalone perles and mucinex. Symptoms seemed to be improving until yesterday when pt started with chills, diarrhea, vomiting up yellow sputum, no taste/smell, and return of cough and congestion. Cough is causing rib pain. Mother in retirement recently dx COVID + last week and pt goes to visit frequently. Pt took at home COVID test yesterday and it was positive. Asking about medications to take. REVIEW OF SYSTEMS See HPI PAST MEDICAL HISTORY Diagnosis Date Blood dyscrasia DVT of upper extremity (deep vein thrombosis) (HCC) 2004 left upper arm after gallbladder surgery BEBE (generalized anxiety disorder) Migraine, unspecified, without mention of intractable migraine without mention of status migrainosus Nummular eczema 07/2014 Other acute embolism veins 2007 left leg Other and unspecified coagulation defects Factor V Leiden deficiency Symptomatic menopausal or female climacteric states perimenopausal PAST SURGICAL HISTORY Procedure Laterality Date DELIVERY ONLY 1996 , low cervical CHOLECYSTECTOMY 2004 Cholecystectomy COLONOSCOPY FLX DX W/COLLJ SPEC WHEN PFRMD 12/03/2019 Colonoscopy ESOPHAGOGASTRODUODENOSCOPY TRANSORAL DIAGNOSTIC 12/03/2019 EGD LIG/TRNSXJ FLP TUBE ABDL/VAG APPR UNI/BI 1996 ALLERGIES Qkfhsgj-Jio-Fxbltps-Acetam-Caf and Vicodin [Hydrocodone-Acetaminophen] MEDICATIONS topiramate (TOPAMAX) 50 mg tablet Take 1 tablet by mouth two times a day. loratadine (CLARITIN) 10 mg tablet Take 1 tablet by mouth once daily. For congestion. triamcinolone acetonide (KENALOG) 0.1 % cream Apply 1 application to affected area three times daily. Apply sparingly to area for rash/itching. omeprazole (PRILOSEC) 20 mg capsule Take 1 capsule by mouth once daily. valACYclovir (VALTREX) 1 gram take 1 tablet by mouth three times a day for 7 days for herpes outbreaks busPIRone (BUSPAR) 7.5 mg tablet Take 1 tablet by mouth at bedtime as needed (INSOMNIA). warfarin (COUMADIN) 4 mg tablet Take 1 and 1/2 tablets (6mg) by mouth once daily EXCEPT 1 tablet (4mg) SATURDAY ferrous sulfate (SLOW FE) 140 mg (45 mg iron) TbER Take 1 tablet by mouth twice daily with meals. FLUoxetine (PROZAC) 20 mg capsule Take 1 capsule by mouth once daily. Take with 40 mg capsule to total 60 mg a day furosemide (LASIX) 20 mg tablet Take 1 tablet by mouth twice daily. propranolol (INDERAL) 40 mg tablet TAKE 1 TABLET BY MOUTH DAILY FLUoxetine (PROZAC) 40 mg capsule Take 1 capsule by mouth once daily. magnesium oxide 200 mg magnesium tab Take by mouth. Pt takes twice daily cholecalciferol, vitamin D3, 10 mcg (400 unit) cap Take 400 Units by mouth once daily. Pt takes twice daily vitamin B complex (B COMPLEX 1 ORAL) Take by mouth. FAMILY HISTORY Problem Relation Age of Onset Diabetes Mother diet Thyroid Mother other (clotting disorder) Mother Factor V Leiden deficiency Hypertension Father asthma, DM Diabetes Father on pills Asthma Father Cancer Maternal Grandfather lung - smoker Stroke Paternal Grandmother age 84 Social History Tobacco Use Smoking status: Never Smokeless tobacco: Never Substance Use Topics Alcohol use: No Drug use: No EXAM: Deferred physical exam as visit was completed over the phone Patient is speaking in complete sentences without obvious respiratory distress or audible wheezing. Virtual visit completed using video, limited exam completed. No exam performed DATA REVIEWED: Most recent labs and imaging results. Shingrix Vaccine(1 of 2) Never done Pap Testing due on 10/01/2022 HPV Testing due on 10/01/2022 Mammogram Screening due on 02/27/2023 Covid-19 Vaccine(1) due on 06/25/2023 Influenza Vaccine(1) due on 12/08/2023 Hepatitis B Vaccine(1 of 3 - 3-dose series) due on 04/15/2024 Hepatitis C Screening due on 04/15/2024 HIV Screening due on 04/15/2024 Diabetes Screening due on 01/26/2026 Lipid Screening due on 10/17/2027 Colorectal Cancer Screening due on 12/02/2029 DTaP,Tdap, (more content not included)... [facility] 05-08-2023 Miscellaneous Notes Noted. Visit was switched to virtual and completed. Please refer to this visit. Thank you, Cortney Jordan APRN.DISABILITY ATTORNEY Pt has appointment today with Cortney Jordan BABY DOCTOR at 140 pm. Pt saw Shelly Huynh on 04/15/23 and states she wasn't feeling well back then.She states the cough and congestion started 04/26/23 and she had been taking the OTC cold an flu but the box said to only take for a week. She states [facility]23 and they told her she had Bronchitis and gave her an antibiotic and Tessalon Pearls. She reports she is done with the antibiotic and feels worse that before. She received a call from her mothers retirement stating her mother was Covid +, she took a test today and it came back Covid +. I asked if they had tested her at the [facility], and she said they hadn't mentioned it. Pt reports she still has the cough and congestion, nausea, and sore throat. Charlie she started vomiting, she said it is mostly phlegm/bile. Yesterday and today she has been having urgent diarrhea. I'm not sure when first Covid symptoms started. I told Pt to wear a mask to office, and that office would call her back if they wanted to switch her to a VV. documented in this encounter [facility] 05-08-2023 History of Present illness Narrative This Team Access Model visit is a phone encounter. It required patient-provider interaction for the medical decision making as documented below. Patient agrees to the visit: Yes Patient Location: [place] CC: Patient presents with: Covid Positive HPI Vero Holt is a 53 year old female who is contacted today for a phone visit. This is an established patient of Dr. Handy Hurst DO. Concerns today... Cough/congestion ---- Started with bad sore throat at the beginning of the month. Suspected likely allergies due to no other symptoms. Started taking Claritin with some relief. Then started with cough and congestion last week. Started taking OTC medications without relief. Went to [facility] clinic on Saturday (05/03) and dx with bronchitis. Given z-cricket, tessalone perles and mucinex. Symptoms seemed to be improving until yesterday when pt started with chills, diarrhea, vomiting up yellow sputum, no taste/smell, and return of cough and congestion. Cough is causing rib pain. Mother in retirement recently dx COVID + last week and pt goes to visit frequently. Pt took at home COVID test yesterday and it was positive. Asking about medications to take. REVIEW OF SYSTEMS See HPI PAST MEDICAL HISTORY Diagnosis Date Blood dyscrasia DVT of upper extremity (deep vein thrombosis) (HCC) 2004 left upper arm after gallbladder surgery BEBE (generalized anxiety disorder) Migraine, unspecified, without mention of intractable migraine without mention of status migrainosus Nummular eczema 07/2014 Other acute embolism veins 2007 left leg Other and unspecified coagulation defects Factor V Leiden deficiency Symptomatic menopausal or female climacteric states perimenopausal PAST SURGICAL HISTORY Procedure Laterality Date DELIVERY ONLY 1996 , low cervical CHOLECYSTECTOMY 2004 Cholecystectomy COLONOSCOPY FLX DX W/COLLJ SPEC WHEN PFRMD 12/03/2019 Colonoscopy ESOPHAGOGASTRODUODENOSCOPY TRANSORAL DIAGNOSTIC 12/03/2019 EGD LIG/TRNSXJ FLP TUBE ABDL/VAG APPR UNI/BI 1996 ALLERGIES Andqegk-Jjx-Jjivpmi-Acetam-Caf and Vicodin [Hydrocodone-Acetaminophen] MEDICATIONS topiramate (TOPAMAX) 50 mg tablet Take 1 tablet by mouth two times a day. loratadine (CLARITIN) 10 mg tablet Take 1 tablet by mouth once daily. For congestion. triamcinolone acetonide (KENALOG) 0.1 % cream Apply 1 application to affected area three times daily. Apply sparingly to area for rash/itching. omeprazole (PRILOSEC) 20 mg capsule Take 1 capsule by mouth once daily. valACYclovir (VALTREX) 1 gram take 1 tablet by mouth three times a day for 7 days for herpes outbreaks busPIRone (BUSPAR) 7.5 mg tablet Take 1 tablet by mouth at bedtime as needed (INSOMNIA). warfarin (COUMADIN) 4 mg tablet Take 1 and 1/2 tablets (6mg) by mouth once daily EXCEPT 1 tablet (4mg) SATURDAY ferrous sulfate (SLOW FE) 140 mg (45 mg iron) TbER Take 1 tablet by mouth twice daily with meals. FLUoxetine (PROZAC) 20 mg capsule Take 1 capsule by mouth once daily. Take with 40 mg capsule to total 60 mg a day furosemide (LASIX) 20 mg tablet Take 1 tablet by mouth twice daily. propranolol (INDERAL) 40 mg tablet TAKE 1 TABLET BY MOUTH DAILY FLUoxetine (PROZAC) 40 mg capsule Take 1 capsule by mouth once daily. magnesium oxide 200 mg magnesium tab Take by mouth. Pt takes twice daily cholecalciferol, vitamin D3, 10 mcg (400 unit) cap Take 400 Units by mouth once daily. Pt takes twice daily vitamin B complex (B COMPLEX 1 ORAL) Take by mouth. FAMILY HISTORY Problem Relation Age of Onset Diabetes Mother diet Thyroid Mother other (clotting disorder) Mother Factor V Leiden deficiency Hypertension Father asthma, DM Diabetes Father on pills Asthma Father Cancer Maternal Grandfather lung - smoker Stroke Paternal Grandmother age 84 Social History Tobacco Use Smoking status: Never Smokeless tobacco: Never Substance Use Topics Alcohol use: No Drug use: No EXAM: Deferred physical exam as visit was completed over the phone Patient is speaking in complete sentences without obvious respiratory distress or audible wheezing. Virtual visit completed using video, limited exam completed. No exam performed DATA REVIEWED: Most recent labs and imaging results. Shingrix Vaccine(1 of 2) Never done Pap Testing due on 10/01/2022 HPV Testing due on 10/01/2022 Mammogram Screening due on 02/27/2023 Covid-19 Vaccine(1) due on 06/25/2023 Influenza Vaccine(1) due on 12/08/2023 Hepatitis B Vaccine(1 of 3 - 3-dose series) due on 04/15/2024 Hepatitis C Screening due on 04/15/2024 HIV Screening due on 04/15/2024 Diabetes Screening due on 01/26/2026 Lipid Screening due on 10/17/2027 Colorectal Cancer Screening due on 12/02/2029 DTaP,Tdap,Td Vaccine(3 - Td or Tdap) due on 09/13/2032 Depression Assessment Completed ASSESSMENT/PLAN: 1. COVID-19 - ICD9: 079.89, ICD10: U07.1 Molnupiravir BID x 5 days. d/t possible interaction with warfarin and paxlovid. Have INR checked next week. Pt aware of CDC guidelines -- letter sent to patient via [employer] about quarantine. Pt aware of red flag symptoms to seek immediate medical attention. If no improvement in symptoms within 5-7 days, may consider CXR to rule out pneumonia. - MOLNUPIRAVIR 200 MG CAPSULE (EUA) Prescription instructions reviewed with patient as applicable. Potential red flag symptoms discussed with the patient. Reviewed appropriate action plan to take if red flag symptoms occur. Patient agreeable to treatment plan. During this patient visit I have spent approximately 20 minutes in counseling regarding treatment options and medications. Cortney Jordan APRN.ROS Molnupiravir Eligibility and Patient Discussion [facility] Formulary Restriction Criteria: Adult outpatients 18 years and older with ALL of the following: [x] Patient has symptoms for 5 days or less [x] Not requiring hospitalization at any time for management of COVID-19 [x] Not requiring supplemental oxygen or a change in baseline supplemental oxygen [x] Not utilized for pre-exposure or post-exposure prophylaxis for prevention of COVID-19 [x] Patient is not or lactating [x] Meeting at least one of the criteria for high risk of progression to severe COVID-19: [] Age over 65 years [] Cancer [x] Chronic kidney disease [] Chronic liver disease [] Chronic lung diseases, including cystic fibrosis [] Dementia or other neurological conditions [] Diabetes (type 1 or type 2) [] Disabilities, including Down syndrome and neurodevelopmental disorders [] Heart conditions [] HIV infection [] Immunocompromised state [] Mental health conditions [] Medical related technological dependence (tracheostomy, gastrostomy, or positive pressure ventilation (not related to COVID) [x] Overweight and obesity (BMI greater or equal to 25 for adults) [] Physical inactivity [] Sickle cell disease or thalassemia [] Smoking, current or former [] Solid organ or blood stem cell transplant [] Stroke or cerebrovascular disease [] Substance use disorders [] Tuberculosis [] People from racial and ethnic minority groups Criteria above are met: Yes Date of Symptom Onset: yesterday / status reviewed: Females: [x] Patient is not currently and there is no possibility the patient could be (select one of the following): [x] test does not need to be confirmed in patients who have undergone permanent sterilization, are currently using an intrauterine system or contraceptive implant, or in whom is not possible. [] Patients not meeting conditions above: assess whether the patient is based on the first day of the last menstrual period in individuals who have regular menstrual cycles, is using reliable method of contraception correctly and consistently or have had a negative test [] A test is recommended if the individual has irregular menstrual cycles, is unsure of the first day of the last menstrual period or is not using effective contraception correctly and consistently [x] Patient is not currently . is not recommended during treatment and for four days after final dose of molnupiravir. [x] Females have been advised to use a reliable method of contraception correctly and consistently for the duration of treatment and for four days after the last dose of molnupiravir Males: [] Sexually active male with partner(s) of childbearing potential has been advised to use a reliable method of contraception correctly and consistently for intercourse for the duration of treatment and for three months after the last dose of molnupiravir I have discussed the use of the investigational therapeutic, molnupiravir, for the treatment of mild to moderate COVID-19 and its use under Emergency Use Authorization with the patient. The patient was informed that molnupiravir is not an FDA approved drug and that it is authorized for use under this Emergency Use Authorization. The patient was also informed of the significant known benefits and potential risks of molnupiravir, and the extent to which such potential risks and benefits are unknown. The patient was informed that there is mandatory reporting of all medication errors and serious adverse events potentially related to molnupiravir treatment within 7 calendar days from the onset of the event and that events up to 28 days after completion of therapy need to be reported. The discussion included alternatives to receiving molnupiravir, including clinical trials, and potential the risks and benefits of those alternatives. The patient was provided electronically with the Fact Sheet for Patients, Parents and Caregivers . The patient was also instructed that in addition to the treatment with molnupiravir, he/she should continue to self-isolate and use infection control measures (e.g., wear mask, isolate, social distance, avoid sharing personal items, clean and disinfect high touch surfaces, and frequent handwashing) according to CDC guidelines. The patient stated understanding and gave verbal consent to proceeding with molnupiravir treatment. Cortney Jordan APRN.CNP May 08, 2023 12:39 PM documented in this encounter [facility] 05-08-2023 Instructions Cortney Jordan APRN.CNP - 05/08/2023 12:38 PM EST Fact Sheet for Patients And Caregivers Emergency Use Authorization (EUA) Of LAGEVRIO (molnupiravir) capsules For Coronavirus Disease 2019 (COVID-19) What is the most important information I should know about LAGEVRIO? LAGEVRIO may cause serious side effects, including: LAGEVRIO may cause harm to your unborn baby. It is not known if LAGEVRIO will harm your baby if you take LAGEVRIO during . LAGEVRIO is not recommended for use in . LAGEVRIO has not been studied in . LAGEVRIO was studied in animals only. When LAGEVRIO was given to animals, LAGEVRIO caused harm to their unborn babies. You and your healthcare provider may decide that you should take LAGEVRIO during if there are no other COVID-19 treatment options approved or authorized by the FDA that are accessible or clinically appropriate for you. If you and your healthcare provider decide that you should take LAGEVRIO during , you and your healthcare provider should discuss the known and potential benefits and the potential risks of taking LAGEVRIO during . For individuals who are able to become : You should use a reliable method of control (contraception) consistently and correctly during treatment with LAGEVRIO and for 4 days after the last dose of LAGEVRIO. Talk to your healthcare provider about reliable control methods. Before starting treatment with LAGEVRIO your healthcare provider may do a test to see if you are before starting treatment with LAGEVRIO. Tell your healthcare provider right away if you become or think you may be during treatment with LAGEVRIO. Registry: There is a registry for individuals who take LAGEVRIO during . The purpose of this program is to collect information about the health of you and your baby. If you are or become during treatment with LAGEVRIO, you are encouraged to report your use of LAGEVRIO during to this registry at https://[email or web address].[email or web address] or . For individuals who are sexually active with partners who are able to become : It is not known if LAGEVRIO can affect sperm. While the risk is regarded as low, animal studies to fully assess the potential for LAGEVRIO to affect the babies of males treated with LAGEVRIO have not been completed. A reliable method of control (contraception) should be used consistently and correctly during treatment with LAGEVRIO and for at least 3 months after the last dose. The risk to sperm beyond 3 months is not known. Studies to understand the risk to sperm beyond 3 months are ongoing. Talk to your healthcare provider about reliable control methods. Talk to your healthcare provider if you have questions or concerns about how LAGEVRIO may affect sperm. You are being given this fact sheet because your healthcare provider believes it is necessary to provide you with LAGEVRIO for the treatment of adults with a current diagnosis of mild-tomoderate coronavirus disease 2019 (COVID-19) who are at high risk for progression to severe COVID-19, including hospitalization or , and for whom other COVID-19 treatment options approved or authorized by the FDA are not accessible or clinically appropriate. The [place].S. Food and Drug Administration (FDA) has issued an Emergency Use Authorization (EUA) to make LAGEVRIO available during the COVID-19 pandemic (for more details about an EUA please see What is an Emergency Use Authorization? at the end of this document). LAGEVRIO is not an FDA-approved medicine in the [place]. Read this Fact Sheet for information about LAGEVRIO. Talk to your healthcare provider about your options if you have any questions. It is your choice to take LAGEVRIO. What is COVID-19? COVID-19 is caused by a virus called a coronavirus. You can get COVID-19 through close contact with another person who has the virus. COVID-19 illnesses have ranged from very ixpt-tj-zylapu, including illness resulting in . While information so far suggests that most COVID-19 illness is mild, serious illness can happen and may cause some of your other medical conditions to become worse. Older people and people of all ages with severe, long lasting (chronic) medical conditions like heart disease, lung disease and diabetes, for example seem to be at higher risk of being hospitalized for COVID-19. What is LAGEVRIO? LAGEVRIO is an investigational medicine used to treat adults with a current diagnosis of mild to moderate COVID-19: who are at high risk for progression to severe COVID-19 including hospitalization or , and for whom other COVID-19 treatment options approved or authorized by the FDA are not accessible or clinically appropriate. The FDA has authorized the emergency use of LAGEVRIO for the treatment of mild-tomoderate COVID-19 in adults under an EUA. For more information on EUA, see the What is an Emergency Use Authorization (EUA)? section at the end of this Fact Sheet. LAGEVRIO is not authorized: for use in people less than 18 years of age. for prevention of COVID-19. for people needing hospitalization for COVID-19. for use for longer than 5 consecutive days. What should I tell my healthcare provider before I take LAGEVRIO? Tell your healthcare provider if you: have any allergies are or plan to breastfeed have any serious illnesses Take any medicines including prescription, nsie-lua-puqddew medicines, vitamins, and herbal products. How do I take LAGEVRIO? Take LAGEVRIO exactly as your healthcare provider tells you to take it. Take 4 capsules of LAGEVRIO every 12 hours (for example, at 8 am and at 8 pm) Take LAGEVRIO for 5 days. It is important that you complete the full 5 days of treatment with LAGEVRIO. Do not stop taking LAGEVRIO before you complete the full 5 days of treatment, even if you feel better. Take LAGEVRIO with or without food. You should stay in isolation for as long as your healthcare provider tells you to. Talk to your healthcare provider if you are not sure about how to properly isolate while you have COVID-19. Swallow LAGEVRIO capsules whole. Do not open, break, or crush the capsules. If you cannot swallow capsules whole, tell your healthcare provider. If your healthcare provider prescribes LAGEVRIO and tells you to take or give a dose through a nasogastric (NG) or orogastric (OG) tube, follow the instructions below: How to take or give a dose of LAGEVRIO through a nasogastric (NG) or orogastric (OG) feeding tube. You must have an NG or OG that is size 12 Latvian (FR) or larger. If you miss a dose of LAGEVRIO: If it has been less than 10 hours since the missed dose, take it as soon as you remember. If it has been more than 10 hours since the missed dose, skip the missed dose and take your dose at the next scheduled time. Do not double the dose of LAGEVRIO to make up for a missed dose. How to take or give a dose of LAGEVRIO through a nasogastric (NG) or orogastric (OG) feeding tube: Wash your hands well with soap and water. Gather the supplies you will need to take or give the prescribed dose of LAGEVRIO. 4 LAGEVRIO capsules 1 liquid measuring cup with mL markings to measure 40 mL of room temperature water 1 clean container with a lid 1 catheter tip syringe. Your healthcare provider should tell you what size catheter tip syringe you will need to take or give a dose of LAGEVRIO. Place the needed supplies on a clean work surface. Follow your healthcare provider s instructions on how to flush the NG or OG feeding tube. Flush the NG or OG feeding tube with 5 mL of water before taking or giving a dose of LAGEVRIO. Carefully open 4 LAGEVRIO capsules, one at a time, and empty the contents into a clean container. Use the liquid measuring cup to measure 40 mL of room temperature water and add to the container containing the capsule contents. Place the lid on the container. Shake to mix the capsule contents and water well for 3 minutes. The capsule contents may not dissolve completely. Remove the lid from the container and draw up all the LAGEVRIO and water mixture into a catheter tip syringe. Give all of the mixture right away through the NG or OG feeding tube. Do not keep the mixture for future use. If any capsule contents are left in the container: Add 10 mL of water to the container, and mix to loosen any capsule contents that are left in the container. Use the catheter tip syringe to draw up all of the mixture in the container. Give the mixture through the NG or OG feeding tube. Repeat this process as needed until you no longer see any capsule contents left in the container or catheter tip syringe. Use the same catheter tip syringe to flush the NG or OG feeding tube 2 times with 5 mL of water (10mL total). Rinse the container, lid and catheter tip syringe well with clean water after use. Place on a clean paper towel until next use. What are the important possible side effects of LAGEVRIO? See, What is the most important information I should know about LAGEVRIO? Allergic Reactions. Allergic reactions can happen in people taking LAGEVRIO, even after only 1 dose. Stop taking LAGEVRIO and call your healthcare provider right away if you get any of the following symptoms of an allergic reaction: hives rapid heartbeat trouble swallowing or breathing swelling of the mouth, lips, or face throat tightness hoarseness skin rash The most common side effects of LAGEVRIO are: diarrhea nausea dizziness These are not all the possible side effects of LAGEVRIO. Not many people have taken LAGEVRIO. Serious and unexpected side effects may happen. This medicine is still being studied, so it is possible that all of the risks are not known at this time. What other treatment choices are there? Veklury (remdesivir) is FDA-approved as an intravenous (IV) infusion for the treatment of mildto-moderate COVID-19 in certain adults and children. Talk with your doctor to see if Veklury is appropriate for you. Like LAGEVRIO, FDA may also allow for the emergency use of other medicines to treat people with COVID-19. Go to https://www.fda.gov/emergency-pre jfwgiowfj-acj-ahwcuqyj/mcm-legalr wmougncxj-pxo-hvkfju-framework/em nmxehrh-wft-yeqswuersucqu for more information. It is your choice to be treated or not to be treated with LAGEVRIO. Should you decide not to take it, it will not change your standard medical care. What if I am ? is not recommended during treatment with LAGEVRIO and for 4 days after the last dose of LAGEVRIO. If you are or plan to breastfeed, talk to your healthcare provider about your options and specific situation before taking LAGEVRIO. How do I report side effects with LAGEVRIO? Contact your healthcare provider if you have any side effects that bother you or do not go away. Report side effects to FDA MedWatch at www.fda.gov/medwatch or call 6-884-DWN-2159 (1852.332.6879). How should I store LAGEVRIO? Store LAGEVRIO capsules at room temperature between 68 F to 77 F (20 C to 25 C). Keep LAGEVRIO and all medicines out of the reach of children. How can I learn more about COVID-19? Ask your healthcare provider. Visit www.cdc.gov/COVID19 Contact your local or state public health department. Call [employer] at (toll free in the [place] Visit www.[employer] What Is an Emergency Use Authorization (EUA)? The [place] FDA has made LAGEVRIO available under an emergency access mechanism called an Emergency Use Authorization (EUA) The EUA is supported by a [place] of Health and Human Service ([facility]) declaration that circumstances exist to justify emergency use of drugs and biological products during the COVID-19 pandemic. LAGEVRIO for the treatment of adults with a current diagnosis of edve-lg-norkqpqg COVID-19 who are at high risk for progression to severe COVID-19, including hospitalization or , and for whom alternative COVID-19 treatment options approved or authorized by FDA are not accessible or clinically appropriate, has not undergone the same type of review as an FDAapproved product. In issuing an EUA under the COVID-19 public health emergency, the FDA has determined, among other things, that based on the total amount of scientific evidence available including data from adequate and well-controlled clinical trials, if available, it is reasonable to believe that the product may be effective for diagnosing, treating, or preventing COVID-19, or a serious or life-threatening disease or condition caused by COVID-19; that the known and potential benefits of the product, when used to diagnose, treat, or prevent such disease or condition, outweigh the known and potential risks of such product; and that there are no adequate, approved, and available alternatives. All of these criteria must be met to allow for the product to be used in the treatment of patients during the COVID-19 pandemic. The EUA for LAGEVRIO is in effect for the duration of the COVID-19 declaration justifying emergency use of LAGEVRIO, unless terminated or revoked (after which LAGEVRIO may no longer be used under the EUA). for: [employer] [place] [address], [facility] For patent information: www.[employer]/research/patent Copyright [employer] [place], [place], [place] and its affiliates. All rights reserved. [id number] Revised: July 2022 documented in this encounter [facility] 05-06-2023 Miscellaneous Notes Pt. informed via My Chart. This is most likely a z-cricket antibiotic. She should be feeling better not worse with the antibiotic. Please assist in making appointment to assess. Thank you, Cortney Jordan APRN.DISABILITY ATTORNEY Images from the original note were not included. Vero Holt Kike tr [facility] My Chart Rx Pool Had a sore throat beginning the 10 of April, then turned into a cold I guess. Not getting better went to now clinic over long weekend and the gave me a 2 pills first day 1 pill for 4 days. They said I have bronchitis. I took 4 pills so far and feel worse today is that the medication working? Thanks Verofortino Holt documented in this encounter [facility] 05-06-2023 Miscellaneous Notes See telephone note documented in this encounter [facility] 04-15-2023 Note HNO ID: [id number] Author: Cary Sanchez RT(R) Service: Radiology Author Type: Technologist Type: Progress Notes Filed: 04/15/2023 8:22 AM Note Text: Radiology Service Progress Note PATIENT NAME: Vero Holt DATE OF SERVICE: April 15, 2023 TIME: 8:03 AM PATIENT IDENTITY VERIFICATION COMPLETED USING TWO (2) IDENTIFIERS: Name and Date of confirmed by patient verbally. FALL SCREENING: Has the patient had 2 falls in the last year or 1 fall with injury or currently using an Ambulatory Assistive Device (Walker, Cane, Wheelchair, Crutches, etc.)? No PATIENT GENDER DATA: Female. status: : No status: NO. PATIENT RELEVANT IMPLANT DATA REVIEWED: Yes RADIOLOGY DEPARTMENT: General X-ray: Exam(s) Completed: Lower Extremity X-Ray(s): Knee, AP / Lat / Tunne / Merchant Right and Wt. Bearing PERIPHERAL IV DATA: Not applicable SIGNED BY: RT Larry(R) April 15, 2023 8:03 AM [facility] 04-15-2023 Note HNO ID: [id number] Author: Shelly Huynh APRN.DISABILITY ATTORNEY Service: ? Author Type: Nurse Practitioner Type: Progress Notes Filed: 04/15/2023 7:47 AM Note Text: Chief Complaint Patient presents with: Medication Follow-up: Adipex HPI Vero Holt is a 53 year old female who presents here today for Above Complaints.. Weight 01/16/2023: 270 pounds Weight today 04/15/2023: 271 pounds Today: Diet-nothing specific Exercise-nothing specific Life is crazy. Just had to put mother in retirement. And having to be there all the time. Best friend of 50 years just found out she has metastatic breast cancer. Right knee pain. Feels swollen. Thinking about starting chair yoga. Feels like it need to pop. When gets up in the morning can barely walk. 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 Is chronic but worsening over the past few weeks. No new injury. Feels this may be r/t her weight. Wakes up every morning with congestion. Currently takes cetirizine nightly for this but not sure it's working well. Past medical history, appointments, medications, allergies reviewed. Previous Medical History PAST MEDICAL HISTORY Diagnosis Date Blood dyscrasia DVT of upper extremity (deep vein thrombosis) (HCC) 2004 left upper arm after gallbladder surgery BEBE (generalized anxiety disorder) Migraine, unspecified, without mention of intractable migraine without mention of status migrainosus Nummular eczema 07/2014 Other acute embolism veins 2007 left leg Other and unspecified coagulation defects Factor V Leiden deficiency Symptomatic menopausal or female climacteric states perimenopausal Previous Surgical History PAST SURGICAL HISTORY Procedure Laterality Date DELIVERY ONLY 1996 , low cervical CHOLECYSTECTOMY 2004 Cholecystectomy COLONOSCOPY FLX DX W/COLLJ SPEC WHEN PFRMD 12/03/2019 Colonoscopy ESOPHAGOGASTRODUODENOSCOPY TRANSORAL DIAGNOSTIC 12/03/2019 EGD LIG/TRNSXJ FLP TUBE ABDL/VAG APPR UNI/BI 1996 Family History FAMILY HISTORY Problem Relation Age of Onset Diabetes Mother diet Thyroid Mother other (clotting disorder) Mother Factor V Leiden deficiency Hypertension Father asthma, DM Diabetes Father on pills Asthma Father Cancer Maternal Grandfather lung - smoker Stroke Paternal Grandmother age 84 Patient Allergies ALLERGIES Allergen Reactions Zypfqci-Gom-Mattjhr* Shortness of Breath Vicodin [Hydrocodon* GI Upset nausea Current Medications Current Outpatient Medications on File Prior to Visit Medication Sig triamcinolone acetonide (KENALOG) 0.1 % cream Apply 1 application to affected area three times daily. Apply sparingly to area for rash/itching. omeprazole (PRILOSEC) 20 mg capsule Take 1 capsule by mouth once daily. valACYclovir (VALTREX) 1 gram take 1 tablet by mouth three times a day for 7 days for herpes outbreaks busPIRone (BUSPAR) 7.5 mg tablet Take 1 tablet by mouth at bedtime as needed (INSOMNIA). cetirizine (ZYRTEC) 10 mg tablet Take 1 tablet by mouth once daily. For congestion warfarin (COUMADIN) 4 mg tablet Take 1 and 1/2 tablets (6mg) by mouth once daily EXCEPT 1 tablet (4mg) SATURDAY ferrous sulfate (SLOW FE) 140 mg (45 mg iron) TbER Take 1 tablet by mouth twice daily with meals. FLUoxetine (PROZAC) 20 mg capsule Take 1 capsule by mouth once daily. Take with 40 mg capsule to total 60 mg a day furosemide (LASIX) 20 mg tablet Take 1 tablet by mouth twice daily. propranolol (INDERAL) 40 mg tablet TAKE 1 TABLET BY MOUTH DAILY FLUoxetine (PROZAC) 40 mg capsule Take 1 capsule by mouth once daily. magnesium oxide 200 mg magnesium tab Take by mouth. Pt takes twice daily cholecalciferol, vitamin D3, 10 mcg (400 unit) cap Take 400 Units by mouth once daily. Pt takes twice daily vitamin B complex (B COMPLEX 1 ORAL) Take by mouth. No current facility-administered medications on file prior to visit. Social History Social History Tobacco Use Smoking status: Never Smokeless tobacco: Never Substance Use Topics Alcohol use: No Drug use: No Review of Symptoms REVIEW OF SYSTEMS See HPI, otherwise negative EXAM: BP 110/72 (BP Site: Left Arm, BP Position: Sitting, BP Cuff Size: Regular Adult) Pulse 75 Resp 16 Wt 123.1 kg (271 lb 6.4 oz) LMP 07/30/2014 SpO2 99% BMI 46.59 kg/m? General Appearance: Well appearing, alert, in no acute distress, well-hydrated, well nourished. and Morbidly obese. Lungs: Lungs clear to auscultation. No wheezing, rhonchi, rales.. Heart: RRR without murmur, gallop, or rubs. No ectopy. Psychiatric: pleasant, cooperative. Health Maintenance List Hepatitis B Vaccine(1 of 3 - 3-dose series) Never done Hepatitis C Screening Never done HIV Screening Never done Shingrix Vaccine(1 of 2) Never done Pap Testing due on 10/01/2022 HPV Testing due on 10/01/2022 Influenza Vaccine(1) due on 02/08/2023 Mammogram Screening due on (more content not included)... [facility] 04-15-2023 History of Present illness Narrative Chief Complaint Patient presents with: Medication Follow-up: Adipex HPI Vero Holt is a 53 year old female who presents here today for Above Complaints.. Weight 01/16/2023: 270 pounds Weight today 04/15/2023: 271 pounds Today: Diet-nothing specific Exercise-nothing specific Life is crazy. Just had to put mother in retirement. And having to be there all the time. Best friend of 50 years just found out she has metastatic breast cancer. Right knee pain. Feels swollen. Thinking about starting chair yoga. Feels like it need to pop. When gets up in the morning can barely walk. 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 Is chronic but worsening over the past few weeks. No new injury. Feels this may be r/t her weight. Wakes up every morning with congestion. Currently takes cetirizine nightly for this but not sure it's working well. Past medical history, appointments, medications, allergies reviewed. Previous Medical History PAST MEDICAL HISTORY Diagnosis Date Blood dyscrasia DVT of upper extremity (deep vein thrombosis) (HCC) 2004 left upper arm after gallbladder surgery BEBE (generalized anxiety disorder) Migraine, unspecified, without mention of intractable migraine without mention of status migrainosus Nummular eczema 07/2014 Other acute embolism veins 2007 left leg Other and unspecified coagulation defects Factor V Leiden deficiency Symptomatic menopausal or female climacteric states perimenopausal Previous Surgical History PAST SURGICAL HISTORY Procedure Laterality Date DELIVERY ONLY 1996 , low cervical CHOLECYSTECTOMY 2004 Cholecystectomy COLONOSCOPY FLX DX W/COLLJ SPEC WHEN PFRMD 12/03/2019 Colonoscopy ESOPHAGOGASTRODUODENOSCOPY TRANSORAL DIAGNOSTIC 12/03/2019 EGD LIG/TRNSXJ FLP TUBE ABDL/VAG APPR UNI/BI 1996 Family History FAMILY HISTORY Problem Relation Age of Onset Diabetes Mother diet Thyroid Mother other (clotting disorder) Mother Factor V Leiden deficiency Hypertension Father asthma, DM Diabetes Father on pills Asthma Father Cancer Maternal Grandfather lung - smoker Stroke Paternal Grandmother age 84 Patient Allergies ALLERGIES Allergen Reactions Smgamnd-Ics-Xalbkwn* Shortness of Breath Vicodin [Hydrocodon* GI Upset nausea Current Medications Current Outpatient Medications on File Prior to Visit Medication Sig triamcinolone acetonide (KENALOG) 0.1 % cream Apply 1 application to affected area three times daily. Apply sparingly to area for rash/itching. omeprazole (PRILOSEC) 20 mg capsule Take 1 capsule by mouth once daily. valACYclovir (VALTREX) 1 gram take 1 tablet by mouth three times a day for 7 days for herpes outbreaks busPIRone (BUSPAR) 7.5 mg tablet Take 1 tablet by mouth at bedtime as needed (INSOMNIA). cetirizine (ZYRTEC) 10 mg tablet Take 1 tablet by mouth once daily. For congestion warfarin (COUMADIN) 4 mg tablet Take 1 and 1/2 tablets (6mg) by mouth once daily EXCEPT 1 tablet (4mg) SATURDAY ferrous sulfate (SLOW FE) 140 mg (45 mg iron) TbER Take 1 tablet by mouth twice daily with meals. FLUoxetine (PROZAC) 20 mg capsule Take 1 capsule by mouth once daily. Take with 40 mg capsule to total 60 mg a day furosemide (LASIX) 20 mg tablet Take 1 tablet by mouth twice daily. propranolol (INDERAL) 40 mg tablet TAKE 1 TABLET BY MOUTH DAILY FLUoxetine (PROZAC) 40 mg capsule Take 1 capsule by mouth once daily. magnesium oxide 200 mg magnesium tab Take by mouth. Pt takes twice daily cholecalciferol, vitamin D3, 10 mcg (400 unit) cap Take 400 Units by mouth once daily. Pt takes twice daily vitamin B complex (B COMPLEX 1 ORAL) Take by mouth. No current facility-administered medications on file prior to visit. Social History Social History Tobacco Use Smoking status: Never Smokeless tobacco: Never Substance Use Topics Alcohol use: No Drug use: No Review of Symptoms REVIEW OF SYSTEMS See HPI, otherwise negative EXAM: BP 110/72 (BP Site: Left Arm, BP Position: Sitting, BP Cuff Size: Regular Adult) Pulse 75 Resp 16 Wt 123.1 kg (271 lb 6.4 oz) LMP 07/30/2014 SpO2 99% BMI 46.59 kg/m General Appearance: Well appearing, alert, in no acute distress, well-hydrated, well nourished. and Morbidly obese. Lungs: Lungs clear to auscultation. No wheezing, rhonchi, rales.. Heart: RRR without murmur, gallop, or rubs. No ectopy. Psychiatric: pleasant, cooperative. Health Maintenance List Hepatitis B Vaccine(1 of 3 - 3-dose series) Never done Hepatitis C Screening Never done HIV Screening Never done Shingrix Vaccine(1 of 2) Never done Pap Testing due on 10/01/2022 HPV Testing due on 10/01/2022 Influenza Vaccine(1) due on 02/08/2023 Mammogram Screening due on 02/27/2023 Covid-19 Vaccine(1) due on 06/25/2023 Diabetes Screening due on 01/26/2026 Lipid Screening due on 10/17/2027 Colorectal Cancer Screening due on 12/02/2029 DTaP,Tdap,Td Vaccine(3 - Td or Tdap) due on 09/13/2032 Depression Assessment Completed Data reviewed Previous records, office notes ASSESSMENT/PLAN: 1. Obesity, Class III, BMI 40-49.9 (morbid obesity) (HCC) - ICD9: 278.01, ICD10: E66.01 (primary diagnosis) Needs to focus on diet, cutting back on portion sizes. Needs to get started on some regular exercise, even walking. Hopeful this will help with both weight and migraine prophylaxis. Follow up in 3 months. At that time consider increasing Topamax if indicated and tapering off the propanolol for the migraine prophylaxis. - TOPIRAMATE 50 MG TABLET 2. Chronic pain of right knee - ICD9: 719.46, 338.29, ICD10: M25.561, G89.29 Consider PT and/or orthopedic referral. Ok to try chair yoga. - XR KNEE GENERAL 4V AP BOTH/PA BOTH/LAT/MERC RIGHT 3. Migraine, unspecified, without mention of intractable migraine without mention of status migrainosus - ICD9: 346.90, ICD10: G43.909 Needs to focus on diet, cutting back on portion sizes. Needs to get started on some regular exercise, even walking. Hopeful this will help with both weight and migraine prophylaxis. Follow up in 3 months. At that time consider increasing Topamax if indicated and tapering off the propanolol for the migraine prophylaxis. - TOPIRAMATE 50 MG TABLET Shelly Huynh APRN.DISABILITY ATTORNEY documented in this encounter [facility] 04-03-2023 Note Patient Outreach (IN [facility]) VERO HOLT ([id number]) 1970 F Date Time Provider Department 04/03/23 HANDY HURST During your visit today, we recorded the following information about you: Allergies As of Date: 04/03/2023 Noted Allergy Reaction [id number] 05/21/2008 12 - Shortness of Breath VICODIN (HYDROCODONE-ACETAMINOPHE* 008 8 - GI Upset Comments: nausea Date Reviewed: 01/16/2023 Reviewed by: Amina, Shelly, DISABILITY ATTORNEY.DISABILITY ATTORNEY - Fully Assessed Visit Diagnosis:Encounter for screening mammogram for breast cancer [Z12.31] Order(s):[facility] SCREENING [[id number]] Order #: [id number] FUTURE Prescriptions as of 04/08/2023 - triamcinolone acetonide (KENALOG) 0.1 % cream Apply 1 application to affected area three times daily. Apply sparingly to area for rash/itching. - omeprazole (PRILOSEC) 20 mg capsule Take 1 capsule by mouth once daily. - valACYclovir (VALTREX) 1 gram take 1 tablet by mouth three times a day for 7 days for herpes outbreaks - busPIRone (BUSPAR) 7.5 mg tablet Take 1 tablet by mouth at bedtime as needed (INSOMNIA). - cetirizine (ZYRTEC) 10 mg tablet Take 1 tablet by mouth once daily. For congestion - warfarin (COUMADIN) 4 mg tablet Take 1 and 1/2 tablets (6mg) by mouth once daily EXCEPT 1 tablet (4mg) SATURDAY - ferrous sulfate (SLOW FE) 140 mg (45 mg iron) TbER Take 1 tablet by mouth twice daily with meals. - FLUoxetine (PROZAC) 20 mg capsule Take 1 capsule by mouth once daily. Take with 40 mg capsule to total 60 mg a day - furosemide (LASIX) 20 mg tablet Take 1 tablet by mouth twice daily. - propranolol (INDERAL) 40 mg tablet TAKE 1 TABLET BY MOUTH DAILY - FLUoxetine (PROZAC) 40 mg capsule Take 1 capsule by mouth once daily. - magnesium oxide 200 mg magnesium tab Take by mouth. Pt takes twice daily - cholecalciferol, vitamin D3, 10 mcg (400 unit) cap Take 400 Units by mouth once daily. Pt takes twice daily - vitamin B complex (B COMPLEX 1 ORAL) Take by mouth. Problem List As Of Date 04/03/2023 Noted Resolved Migraine NOS/not Intrcbl [G43.909] Symptomatic Menopausal or Female Climacteric St* 10/14/2014 DVT of Upper Extremity (Deep Vein Thrombosis) [* 10/14/2014 DVT x 2 [I74.9] 05/21/2008 Factor V Leiden heterozygous [D68.9] 06/01/2008 Unspecified Site of Ankle Sprain and Strain [S9*07/30/2008 02/05/2015 Generalized Anxiety Disorder [F41.1] 11/05/2008 Routine general medical examination at [facility]01/16/2010 07/16/2012 Class: Chronic Routine gynecological examination [Z01.419] 01/16/2010 07/16/2012 Class: Chronic Osteoporosis [M81.0] 10/09/2010 07/16/2012 Morbid obesity with BMI of 40.0-44.9, adult [E6*07/16/2012 Low HDL (under 40) [E78.6] 07/16/2012 Anticoagulated on Coumadin [Z79.01] 07/16/2012 Skin lesion of hand [L98.9] 07/16/2012 Abnormal uterine bleeding [N93.9] 10/14/2014 Heavy menstrual bleeding [N92.0] 10/14/2014 Irregular menses [N92.6] 10/14/2014 Ovarian cyst [N83.209] 10/20/2014 Anemia [D64.9] 08/09/2015 Vitamin D deficiency [E55.9] 01/17/2016 Factor V Leiden (HCC) [D68.51] 10/26/2016 Chronic anticoagulation [Z79.01] 10/26/2016 Idiopathic peripheral neuropathy [G60.9] 10/26/2016 Neuropathy (HCC) [G62.9] 10/26/2016 Visit for screening mammogram [Z12.31] 10/26/2016 Hair loss [L65.9] 10/06/2021 Fatigue [R53.83] 10/06/2021 Situational insomnia [F51.09] 10/06/2021 Varicose veins of bilateral lower extremities w*06/25/2022 Iron deficiency [E61.1] 06/25/2022 Edema of right lower leg [R60.0] 06/25/2022 Encounter Status:Closed by [employer], PRODUSER on 04/08/23 [facility] 01-16-2023 Note HNO ID: [id number] Author: Shelly Huynh APRN.DISABILITY ATTORNEY Service: ? Author Type: Nurse Practitioner Type: Progress Notes Filed: 01/17/2023 8:52 AM Note Text: Chief Complaint Patient presents with: F/U 3 Month: Itchy rash lower back HPI Vero Holt is a 53 year old female who presents here today for Above Complaints. Today: Adipex-feeling good on it. Is tolerating well. Should be exercising and eating better. Would like to continue Adipex. Has had some discomfort in her upper abdomen, difficult to lay down at times. Does notice is worse if eating later at night or dairy products. Does take famotidine prn. Rash-lower back/upper buttocks. Has been present for at least 6 weeks. Is itchy. Has tried lotion but seems to stay dry and itchy. No drainage or pain. Requesting labs to be drawn-INR for her Coumadin and CMP due to her hx of elevated creatinine levels. Past medical history, appointments, medications, allergies reviewed. Previous Medical History PAST MEDICAL HISTORY Diagnosis Date Blood dyscrasia DVT of upper extremity (deep vein thrombosis) (HCC) 2004 left upper arm after gallbladder surgery BEBE (generalized anxiety disorder) Migraine, unspecified, without mention of intractable migraine without mention of status migrainosus Nummular eczema 07/2014 Other acute embolism veins 2007 left leg Other and unspecified coagulation defects Factor V Leiden deficiency Symptomatic menopausal or female climacteric states perimenopausal Previous Surgical History PAST SURGICAL HISTORY Procedure Laterality Date DELIVERY ONLY 1996 , low cervical CHOLECYSTECTOMY 2004 Cholecystectomy COLONOSCOPY FLX DX W/COLLJ SPEC WHEN PFRMD 12/03/2019 Colonoscopy ESOPHAGOGASTRODUODENOSCOPY TRANSORAL DIAGNOSTIC 12/03/2019 EGD LIG/TRNSXJ FLP TUBE ABDL/VAG APPR UNI/BI 1996 Family History FAMILY HISTORY Problem Relation Age of Onset Diabetes Mother diet Thyroid Mother other (clotting disorder) Mother Factor V Leiden deficiency Hypertension Father asthma, DM Diabetes Father on pills Asthma Father Cancer Maternal Grandfather lung - smoker Stroke Paternal Grandmother age 84 Patient Allergies ALLERGIES Allergen Reactions Lahprvl-Fhz-Abkhptg* Shortness of Breath Vicodin [Hydrocodon* GI Upset nausea Current Medications Current Outpatient Medications on File Prior to Visit Medication Sig omeprazole (PRILOSEC) 20 mg capsule Take 1 capsule by mouth once daily. valACYclovir (VALTREX) 1 gram take 1 tablet by mouth three times a day for 7 days for herpes outbreaks busPIRone (BUSPAR) 7.5 mg tablet Take 1 tablet by mouth at bedtime as needed (INSOMNIA). cetirizine (ZYRTEC) 10 mg tablet Take 1 tablet by mouth once daily. For congestion warfarin (COUMADIN) 4 mg tablet Take 1 and 1/2 tablets (6mg) by mouth once daily EXCEPT 1 tablet (4mg) SATURDAY ferrous sulfate (SLOW FE) 140 mg (45 mg iron) TbER Take 1 tablet by mouth twice daily with meals. FLUoxetine (PROZAC) 20 mg capsule Take 1 capsule by mouth once daily. Take with 40 mg capsule to total 60 mg a day furosemide (LASIX) 20 mg tablet Take 1 tablet by mouth twice daily. propranolol (INDERAL) 40 mg tablet TAKE 1 TABLET BY MOUTH DAILY FLUoxetine (PROZAC) 40 mg capsule Take 1 capsule by mouth once daily. magnesium oxide 200 mg magnesium tab Take by mouth. Pt takes twice daily cholecalciferol, vitamin D3, 10 mcg (400 unit) cap Take 400 Units by mouth once daily. Pt takes twice daily vitamin B complex (B COMPLEX 1 ORAL) Take by mouth. No current facility-administered medications on file prior to visit. Social History Social History Tobacco Use Smoking status: Never Smokeless tobacco: Never Substance Use Topics Alcohol use: No Drug use: No Review of Symptoms REVIEW OF SYSTEMS See HPI, otherwise negative EXAM: BP 122/80 (BP Site: Left Arm, BP Position: Sitting, BP Cuff Size: Large Adult) Pulse 78 Resp 16 Wt 122.6 kg (270 lb 3.2 oz) LMP 07/30/2014 SpO2 98% BMI 46.38 kg/m? General Appearance: Well appearing, alert, in no acute distress, well-hydrated, well nourished. and Morbidly obese. Skin: Rash-dry areas to bilateral upper buttocks, no drainage or erythema present. Lungs: Lungs clear to auscultation. No wheezing, rhonchi, rales.. Heart: RRR without murmur, gallop, or rubs. No ectopy. Health Maintenance List HEPATITIS B(1 of 3 - 3-dose series) Never done HEPATITIS C SCREENING Never done HIV SCREENING Never done SHINGRIX VACCINE(1 of 2) Never done DTAP,TDAP,TD(2 - Td or Tdap) due on 11/15/2018 PAP TESTING due on 10/01/2022 HPV TESTING due on 10/01/2022 MAMMOGRAM due on 02/27/2023 COVID-19 VACCINE(1) due on 06/25/2023 INFLUENZA(1) due on 02/08/2023 DIABETES SCREEN due on 10/16/2025 LIPID SCREEN due on 10/17/2027 COLORECTAL CANCER SCREENING due on 12/02/2029 DEPRESSION ASSESSMENT Completed Data reviewed Previous harry (more content not included)... [facility] 01-16-2023 Instructions Shelly Huynh APRN.ROS - 01/16/2023 4:22 PM EDT Start taking your Prilosec every day and we'll reevaluate at your 3 month appointment. Have your labs drawn. Continue with the daily Adipex/phentermine. Work on getting some exercise. Work on increasing protein in your diet, decreasing carbs. Steroid cream for your back-thin layer 3 times daily. documented in this encounter [facility] 01-16-2023 History of Present illness Narrative Chief Complaint Patient presents with: F/U 3 Month: Itchy rash lower back HPI Vero Holt is a 53 year old female who presents here today for Above Complaints. Today: Adipex-feeling good on it. Is tolerating well. Should be exercising and eating better. Would like to continue Adipex. Has had some discomfort in her upper abdomen, difficult to lay down at times. Does notice is worse if eating later at night or dairy products. Does take famotidine prn. Rash-lower back/upper buttocks. Has been present for at least 6 weeks. Is itchy. Has tried lotion but seems to stay dry and itchy. No drainage or pain. Requesting labs to be drawn-INR for her Coumadin and CMP due to her hx of elevated creatinine levels. Past medical history, appointments, medications, allergies reviewed. Previous Medical History PAST MEDICAL HISTORY Diagnosis Date Blood dyscrasia DVT of upper extremity (deep vein thrombosis) (HCC) 2004 left upper arm after gallbladder surgery BEBE (generalized anxiety disorder) Migraine, unspecified, without mention of intractable migraine without mention of status migrainosus Nummular eczema 07/2014 Other acute embolism veins 2007 left leg Other and unspecified coagulation defects Factor V Leiden deficiency Symptomatic menopausal or female climacteric states perimenopausal Previous Surgical History PAST SURGICAL HISTORY Procedure Laterality Date DELIVERY ONLY 1996 , low cervical CHOLECYSTECTOMY 2004 Cholecystectomy COLONOSCOPY FLX DX W/COLLJ SPEC WHEN PFRMD 12/03/2019 Colonoscopy ESOPHAGOGASTRODUODENOSCOPY TRANSORAL DIAGNOSTIC 12/03/2019 EGD LIG/TRNSXJ FLP TUBE ABDL/VAG APPR UNI/BI 1996 Family History FAMILY HISTORY Problem Relation Age of Onset Diabetes Mother diet Thyroid Mother other (clotting disorder) Mother Factor V Leiden deficiency Hypertension Father asthma, DM Diabetes Father on pills Asthma Father Cancer Maternal Grandfather lung - smoker Stroke Paternal Grandmother age 84 Patient Allergies ALLERGIES Allergen Reactions Bxgrowo-Ikr-Fwnknqu* Shortness of Breath Vicodin [Hydrocodon* GI Upset nausea Current Medications Current Outpatient Medications on File Prior to Visit Medication Sig omeprazole (PRILOSEC) 20 mg capsule Take 1 capsule by mouth once daily. valACYclovir (VALTREX) 1 gram take 1 tablet by mouth three times a day for 7 days for herpes outbreaks busPIRone (BUSPAR) 7.5 mg tablet Take 1 tablet by mouth at bedtime as needed (INSOMNIA). cetirizine (ZYRTEC) 10 mg tablet Take 1 tablet by mouth once daily. For congestion warfarin (COUMADIN) 4 mg tablet Take 1 and 1/2 tablets (6mg) by mouth once daily EXCEPT 1 tablet (4mg) SATURDAY ferrous sulfate (SLOW FE) 140 mg (45 mg iron) TbER Take 1 tablet by mouth twice daily with meals. FLUoxetine (PROZAC) 20 mg capsule Take 1 capsule by mouth once daily. Take with 40 mg capsule to total 60 mg a day furosemide (LASIX) 20 mg tablet Take 1 tablet by mouth twice daily. propranolol (INDERAL) 40 mg tablet TAKE 1 TABLET BY MOUTH DAILY FLUoxetine (PROZAC) 40 mg capsule Take 1 capsule by mouth once daily. magnesium oxide 200 mg magnesium tab Take by mouth. Pt takes twice daily cholecalciferol, vitamin D3, 10 mcg (400 unit) cap Take 400 Units by mouth once daily. Pt takes twice daily vitamin B complex (B COMPLEX 1 ORAL) Take by mouth. No current facility-administered medications on file prior to visit. Social History Social History Tobacco Use Smoking status: Never Smokeless tobacco: Never Substance Use Topics Alcohol use: No Drug use: No Review of Symptoms REVIEW OF SYSTEMS See HPI, otherwise negative EXAM: BP 122/80 (BP Site: Left Arm, BP Position: Sitting, BP Cuff Size: Large Adult) Pulse 78 Resp 16 Wt 122.6 kg (270 lb 3.2 oz) LMP 07/30/2014 SpO2 98% BMI 46.38 kg/m General Appearance: Well appearing, alert, in no acute distress, well-hydrated, well nourished. and Morbidly obese. Skin: Rash-dry areas to bilateral upper buttocks, no drainage or erythema present. Lungs: Lungs clear to auscultation. No wheezing, rhonchi, rales.. Heart: RRR without murmur, gallop, or rubs. No ectopy. Health Maintenance List HEPATITIS B(1 of 3 - 3-dose series) Never done HEPATITIS C SCREENING Never done HIV SCREENING Never done SHINGRIX VACCINE(1 of 2) Never done DTAP,TDAP,TD(2 - Td or Tdap) due on 11/15/2018 PAP TESTING due on 10/01/2022 HPV TESTING due on 10/01/2022 MAMMOGRAM due on 02/27/2023 COVID-19 VACCINE(1) due on 06/25/2023 INFLUENZA(1) due on 02/08/2023 DIABETES SCREEN due on 10/16/2025 LIPID SCREEN due on 10/17/2027 COLORECTAL CANCER SCREENING due on 12/02/2029 DEPRESSION ASSESSMENT Completed Data reviewed Previous records, office notes, [place] report PDMP website checked and validated. All prescriptions have been APPROPRIATELY filled. No suspicious activity was identified. 01/17/2023 by Shelly Huynh CNP. ASSESSMENT/PLAN: 1. Irritant contact dermatitis, unspecified trigger - ICD9: 692.9, ICD10: L24.9 (primary diagnosis) - Topical steriod tx with Rx for steriod cream/ointment- see orders - discussed skin care of rash - follow up if symptoms persist or worsen. - TRIAMCINOLONE ACETONIDE 0.1 % TOPICAL CREAM 2. Obesity, Class III, BMI 40-49.9 (morbid obesity) (HCC) - ICD9: 278.01, ICD10: E66.01 Weight decreasing - Behavioral and pharmacological intervention and - Continue current medications - PHENTERMINE 37.5 MG TABLET 3. Gastroesophageal reflux disease without esophagitis - ICD9: 530.81, ICD10: K21.9 - Discussed lifestyle modifications including losing weight, limiting caffeine, no meals three hours before sleep, and head of bed elevation - Will begin taking famotidine daily rather than prn. Will reassess at appointment in 3 months. May consider moving back to prn at that time. 4. Anticoagulated on Coumadin - ICD9: V58.61, ICD10: Z79.01 - PROTHROMBIN TIME/PT 5. Elevated serum creatinine - ICD9: 790.99, ICD10: R79.89 - COMP METABOLIC PANEL Shelly Huynh APRN.DISABILITY ATTORNEY documented in this encounter [facility] 01-08-2023 Miscellaneous Notes Last office visit: 10/16/22 F/u scheduled: 01/16/23 Kalina Mcdonald Ma documented in this encounter [facility] 10-16-2022 Note HNO ID: [id number] Author: Handy Hurst, DO Service: ? Author Type: Physician Type: Progress Notes Filed: 10/16/2022 10:15 AM Note Text: CC: Vero Hlot is a 52 year old female who presents to the office for follow up HPI: Clotting disorder, chronic use of warfarin, need for INR recheck, no recent bleeding or bruising. 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 No depression, just irritability symptoms mostly. Leg swelling, stable/improved, long standing, started after having covid 19, lasix 20 mg intermittently. No other symptoms. Iron deficiency, fatigue is improving, feels her hair is also improving Obesity, interested in option to try to help with weight loss, has tried to be more physically active and trying to cut back on sugars and starches in her diet as well. Would like to try a medication, weight is 279 lbs. PAST MEDICAL HISTORY Diagnosis Date Blood dyscrasia DVT of upper extremity (deep vein thrombosis) (HCC) 2004 left upper arm after gallbladder surgery BEBE (generalized anxiety disorder) Migraine, unspecified, without mention of intractable migraine without mention of status migrainosus Nummular eczema 07/2014 Other acute embolism veins 2007 left leg Other and unspecified coagulation defects Factor V Leiden deficiency Symptomatic menopausal or female climacteric states perimenopausal PAST SURGICAL HISTORY Procedure Laterality Date DELIVERY ONLY 1996 , low cervical CHOLECYSTECTOMY 2004 Cholecystectomy COLONOSCOPY FLX DX W/COLLJ SPEC WHEN PFRMD 12/03/2019 Colonoscopy ESOPHAGOGASTRODUODENOSCOPY TRANSORAL DIAGNOSTIC 12/03/2019 EGD LIG/TRNSXJ FLP TUBE ABDL/VAG APPR UNI/BI 1996 Current Outpatient Medications Medication Sig ferrous sulfate (SLOW FE) 140 mg (45 mg iron) TbER Take 1 tablet by mouth twice daily with meals. FLUoxetine (PROZAC) 20 mg capsule Take 1 capsule by mouth once daily. Take with 40 mg capsule to total 60 mg a day cetirizine (ZYRTEC) 10 mg tablet Take 1 tablet by mouth once daily. For congestion furosemide (LASIX) 20 mg tablet Take 1 tablet by mouth twice daily. propranolol (INDERAL) 40 mg tablet TAKE 1 TABLET BY MOUTH DAILY FLUoxetine (PROZAC) 40 mg capsule Take 1 capsule by mouth once daily. busPIRone (BUSPAR) 7.5 mg tablet Take 1 tablet by mouth at bedtime as needed (INSOMNIA). omeprazole (PRILOSEC) 20 mg capsule Take 1 capsule by mouth once daily. (Patient taking differently: Take 20 mg by mouth once daily. prn) valACYclovir (VALTREX) 1 gram take 1 tablet by mouth three times a day for 7 days for herpes outbreaks magnesium oxide 200 mg magnesium tab Take by mouth. Pt takes twice daily cholecalciferol, vitamin D3, 10 mcg (400 unit) cap Take 400 Units by mouth once daily. Pt takes twice daily vitamin B complex (B COMPLEX 1 ORAL) Take by mouth. warfarin (COUMADIN) 4 mg tablet Take 1 and 1/2 tablets (6mg) by mouth once daily EXCEPT 1 tablet (4mg) SATURDAY Phentermine HCl (ADIPEX-P) 37.5 mg tablet Take 1 tablet by mouth once daily for 30 days. BMI 47.89 No current facility-administered medications for this visit. ALLERGIES Allergen Reactions Tjubngt-Odg-Vjhshmc* Shortness of Breath Vicodin [Hydrocodon* GI Upset nausea Social History Tobacco Use Smoking status: Never Smokeless tobacco: Never Substance Use Topics Alcohol use: No Drug use: No ROS: See HPI PE: BP 120/80 Pulse 60 Temp (Src) 98 (Left Tympanic) Resp 20 Wt 279 lb (126.6kg) LMP 07/30/2014 Gen: AANDOX3, NAD, non-toxic appearing HEENT: PERRLA, EOMs intact b/l, nares without drainage, pharynx without erythema, exudate, lesions, or drainage. Uvula midline. Neck: No LAD, no thyromegaly, no meningismus. CV: RRR, no murmur Lungs: CTA b/l, no wheezing Skin: No rashes, lesions, or wounds on exposed skin. Varicose veins present Obesity No edema ASSESSMENT/PLAN: 1. Obesity, Class III, BMI 40-49.9 (morbid obesity) (HCC) - ICD9: 278.01, ICD10: E66.01 (primary diagnosis) Stable - Behavioral intervention, - Pharmacological intervention, and - Add Phentermine Follow up in 2-3 months in office - PHENTERMINE 37.5 MG TABLET- she is aware of possible SE with medication. 2. Fatty liver - ICD9: 571.8, ICD10: K76.0 Need for dietary changes and weight loss as d/w her today, starting weight loss medication at this time. - COMP METABOLIC PANEL - CBC + DIFF 3. Iron deficiency - ICD9: 280.9, ICD10: E61.1 See above, recheck labs - CBC + DIFF - IRON + TIBC 4. Anticoagulated on Coumadin - ICD9: V58.61, ICD10: Z79.01 - continue coumadin, recheck labs. - PROTHROMBIN TIME/PT - COMP METABOLIC PANEL 5. Dyslipidemia - ICD9: 272.4, ICD10: E78.5 - to be determined upon return of lab results (more content not included)... [facility] 10-16-2022 History of Present illness Narrative CC: Vero Holt is a 52 year old female who presents to the office for follow up HPI: Clotting disorder, chronic use of warfarin, need for INR recheck, no recent bleeding or bruising. 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 No depression, just irritability symptoms mostly. Leg swelling, stable/improved, long standing, started after having covid 19, lasix 20 mg intermittently. No other symptoms. Iron deficiency, fatigue is improving, feels her hair is also improving Obesity, interested in option to try to help with weight loss, has tried to be more physically active and trying to cut back on sugars and starches in her diet as well. Would like to try a medication, weight is 279 lbs. PAST MEDICAL HISTORY Diagnosis Date Blood dyscrasia DVT of upper extremity (deep vein thrombosis) (HCC) 2004 left upper arm after gallbladder surgery BEBE (generalized anxiety disorder) Migraine, unspecified, without mention of intractable migraine without mention of status migrainosus Nummular eczema 07/2014 Other acute embolism veins 2007 left leg Other and unspecified coagulation defects Factor V Leiden deficiency Symptomatic menopausal or female climacteric states perimenopausal PAST SURGICAL HISTORY Procedure Laterality Date DELIVERY ONLY 1996 , low cervical CHOLECYSTECTOMY 2004 Cholecystectomy COLONOSCOPY FLX DX W/COLLJ SPEC WHEN PFRMD 12/03/2019 Colonoscopy ESOPHAGOGASTRODUODENOSCOPY TRANSORAL DIAGNOSTIC 12/03/2019 EGD LIG/TRNSXJ FLP TUBE ABDL/VAG APPR UNI/BI 1996 Current Outpatient Medications Medication Sig ferrous sulfate (SLOW FE) 140 mg (45 mg iron) TbER Take 1 tablet by mouth twice daily with meals. FLUoxetine (PROZAC) 20 mg capsule Take 1 capsule by mouth once daily. Take with 40 mg capsule to total 60 mg a day cetirizine (ZYRTEC) 10 mg tablet Take 1 tablet by mouth once daily. For congestion furosemide (LASIX) 20 mg tablet Take 1 tablet by mouth twice daily. propranolol (INDERAL) 40 mg tablet TAKE 1 TABLET BY MOUTH DAILY FLUoxetine (PROZAC) 40 mg capsule Take 1 capsule by mouth once daily. busPIRone (BUSPAR) 7.5 mg tablet Take 1 tablet by mouth at bedtime as needed (INSOMNIA). omeprazole (PRILOSEC) 20 mg capsule Take 1 capsule by mouth once daily. (Patient taking differently: Take 20 mg by mouth once daily. prn) valACYclovir (VALTREX) 1 gram take 1 tablet by mouth three times a day for 7 days for herpes outbreaks magnesium oxide 200 mg magnesium tab Take by mouth. Pt takes twice daily cholecalciferol, vitamin D3, 10 mcg (400 unit) cap Take 400 Units by mouth once daily. Pt takes twice daily vitamin B complex (B COMPLEX 1 ORAL) Take by mouth. warfarin (COUMADIN) 4 mg tablet Take 1 and 1/2 tablets (6mg) by mouth once daily EXCEPT 1 tablet (4mg) SATURDAY Phentermine HCl (ADIPEX-P) 37.5 mg tablet Take 1 tablet by mouth once daily for 30 days. BMI 47.89 No current facility-administered medications for this visit. ALLERGIES Allergen Reactions Hwztemp-Xyj-Rdgjzkq* Shortness of Breath Vicodin [Hydrocodon* GI Upset nausea Social History Tobacco Use Smoking status: Never Smokeless tobacco: Never Substance Use Topics Alcohol use: No Drug use: No ROS: See HPI PE: BP 120/80 Pulse 60 Temp (Src) 98 (Left Tympanic) Resp 20 Wt 279 lb (126.6kg) LMP 07/30/2014 Gen: A&OX3, NAD, non-toxic appearing HEENT: PERRLA, EOMs intact b/l, nares without drainage, pharynx without erythema, exudate, lesions, or drainage. Uvula midline. Neck: No LAD, no thyromegaly, no meningismus. CV: RRR, no murmur Lungs: CTA b/l, no wheezing Skin: No rashes, lesions, or wounds on exposed skin. Varicose veins present Obesity No edema ASSESSMENT/PLAN: 1. Obesity, Class III, BMI 40-49.9 (morbid obesity) (HCC) - ICD9: 278.01, ICD10: E66.01 (primary diagnosis) Stable - Behavioral intervention, - Pharmacological intervention, and - Add Phentermine Follow up in 2-3 months in office - PHENTERMINE 37.5 MG TABLET- she is aware of possible SE with medication. 2. Fatty liver - ICD9: 571.8, ICD10: K76.0 Need for dietary changes and weight loss as d/w her today, starting weight loss medication at this time. - COMP METABOLIC PANEL - CBC + DIFF 3. Iron deficiency - ICD9: 280.9, ICD10: E61.1 See above, recheck labs - CBC + DIFF - IRON + TIBC 4. Anticoagulated on Coumadin - ICD9: V58.61, ICD10: Z79.01 - continue coumadin, recheck labs. - PROTHROMBIN TIME/PT - COMP METABOLIC PANEL 5. Dyslipidemia - ICD9: 272.4, ICD10: E78.5 - to be determined upon return of lab results - Encouraged following a low fat, low cholesterol diet. - Discussed the benefits of regular aerobic exercise and weight loss. - Check fasting lipid panel - LIPID PANEL, NONFASTING Handy Hurst DO Return if no improvement. Follow up with Handy Hurst DO. To ER if develops chest pain, shortness of breath. Discussed risks, benefits, alternatives, and potential side effects of medications. Patient/Guardian expressed understanding and agreed with the plan. See patient instructions. Handy Hurst DO [address] [place] [address] documented in this encounter [facility] 08-17-2022 Miscellaneous Notes Patient calling asking for rx refills. Pending to be sent to [facility]. I had phoned pharmacy and several still have refills, only two with no refills that is being asked for now. Had called patient back and went over what pharmacy said. Patient is out of the generic Prozac 20 mg rx. Please advise Patient has been identified by name and date of : Patient phones for refill(s): Requested Prescriptions Pending Prescriptions Disp Refills ferrous sulfate (SLOW FE) 140 mg (45 mg iron) TbER 60 tablet 5 Sig: Take 1 tablet by mouth twice daily with meals. FLUoxetine (PROZAC) 20 mg capsule 90 capsule 3 Sig: Take 1 capsule by mouth once daily. Take with 40 mg capsule to total 60 mg a day Date of last office visit in primary care: 06/25/2022, has appt 09/25/2022 Last 2 Encounter Wt Readings: Date: Wt: 06/25/2022 125.2 kg (276 lb) 05/28/2022 125.6 kg (276 lb 12.8 oz) Previous labs/tests for medication: Blood Pressure: BUN (mg/dL) Date Value 07/04/2022 12 07/06/2021 18 Sodium (mmol/L) Date Value 07/04/2022 140 07/06/2021 137 Last 1 Encounter BP Readings: Date: BP: 06/25/2022 110/80 Please advise. Thank you. Natividad Olivarez LPN documented in this encounter [facility] 08-17-2022 Miscellaneous Notes From pharmacy documented in this encounter [facility] 08-03-2022 Miscellaneous Notes TE 07/04 further discussing this. Closing encounter. Cortney Jordan APRN.DISABILITY ATTORNEY documented in this encounter [facility] 07-05-2022 Miscellaneous Notes Spoke with pt gave information provided. Pt voices understanding. Please inform patient that her RUQ US shows fatty liver disease changes, but is otherwise normal. There is further testing called elastography which is a special test that can be done at [facility] or [facility] to determine if this fatty liver has any early changes of cirrhosis as well. Let me know if she is interested. Order placed- can fax where she would like this completed. Handy Hurst DO documented in this encounter [facility] 07-04-2022 Miscellaneous Notes Spoke with pt she states she did receive message about coumadin dosage,She forgot to return call. Called to clarify pt received message left about coumadin dosage. Got machine was full need to try back in a bit. Detailed message left on Vm. She is to call back and verify message. Continue same dose of coumadin, recheck INR 4 weeks Handy Hurst DO Last INR: PT INR 2.8 06/25/2022 Current dose of coumadin is: 4 mg on Mon - 6 mg rest of the days. Pt reports she has been on this dose for years. Last date of dose change: NA. Previous INR (date and result): 09/28/21 - 2.0 Additional Clinical Information or narrative: yes: pt reports she was on an atb in May for severe uti. Carrie Ojeda LPN . documented in this encounter [facility] 07-04-2022 History of Present illness Narrative Radiology Service Progress Note PATIENT NAME: Vero Holt DATE OF SERVICE: July 04, 2022 TIME: 10:54 AM PATIENT IDENTITY VERIFICATION COMPLETED USING TWO (2) IDENTIFIERS: Name and Date of confirmed by patient verbally. FALL SCREENING: Has the patient had 2 falls in the last year or 1 fall with injury or currently using an Ambulatory Assistive Device (Walker, Cane, Wheelchair, Crutches, etc.)? No PATIENT GENDER DATA: Female. status: : No status: NO. PATIENT RELEVANT IMPLANT DATA REVIEWED: Not Applicable RADIOLOGY DEPARTMENT: Ultrasound PERIPHERAL IV DATA: Not applicable SIGNED BY: Regla Hart RDMS RVT July 04, 2022 10:54 AM documented in this encounter [facility] 06-28-2022 Miscellaneous Notes Summary: US PT is scheduled for an ultrasound on 07/04/22 at 10:45 AM. Thanks, DANIELITO Mendes Pt informed, verbalized understanding Please assist with scheduling US. Alejandra Chen Ma Please inform patient that her recent lab results are showing that her alkaline phosphatase levels are elevated. Other liver enzymes are all normal. I would like this to be rechecked next week with labs as ordered and I would like her to have a RUQ US to check liver for fatty liver changes. Her serum creatinine is also a little high. Would like to check for protein in urine with urine albumin level as well as recheck creatinine level. Needs to make xena she is drinking at least 60 oz or more water a day Handy Hurst DO documented in this encounter [facility] 06-25-2022 History of Present illness Narrative CC: Vero Holt is a 52 year old female who presents to the office for follow up HPI: Clotting disorder, chronic use of warfarin, need for INR recheck, no recent bleeding or bruising. BEBE, taking prozac 60 mg a day, she recently quit her job due to stressors with her boss, she is now looking for a new job, No SI or HI. No depression, just irritability symptoms mostly. Leg swelling, stable/improved, long standing, started after having covid 19, lasix 20 mg intermittently. No other symptoms. Iron deficiency, fatigue is improving, feels her hair is also improving Nasal and chest congestion, mostly only in the AM when waking up, no fevers or chills. No hemoptysis. PAST MEDICAL HISTORY Diagnosis Date Blood dyscrasia DVT of upper extremity (deep vein thrombosis) (HCC) 2004 left upper arm after gallbladder surgery BEBE (generalized anxiety disorder) Migraine, unspecified, without mention of intractable migraine without mention of status migrainosus Nummular eczema 07/2014 Other acute embolism veins 2007 left leg Other and unspecified coagulation defects Factor V Leiden deficiency Symptomatic menopausal or female climacteric states perimenopausal PAST SURGICAL HISTORY Procedure Laterality Date DELIVERY ONLY 1996 , low cervical CHOLECYSTECTOMY 2004 Cholecystectomy COLONOSCOPY FLX DX W/COLLJ SPEC WHEN PFRMD 12/03/2019 Colonoscopy ESOPHAGOGASTRODUODENOSCOPY TRANSORAL DIAGNOSTIC 12/03/2019 EGD LIG/TRNSXJ FLP TUBE ABDL/VAG APPR UNI/BI 1996 Current Outpatient Medications Medication Sig furosemide (LASIX) 20 mg tablet Take 1 tablet by mouth twice daily. propranolol (INDERAL) 40 mg tablet TAKE 1 TABLET BY MOUTH DAILY FLUoxetine (PROZAC) 40 mg capsule Take 1 capsule by mouth once daily. warfarin (COUMADIN) 4 mg tablet Take 1 and 1/2 tablets (6mg) by mouth once daily EXCEPT 1 tablet (4mg) SATURDAY busPIRone (BUSPAR) 7.5 mg tablet Take 1 tablet by mouth at bedtime as needed (INSOMNIA). FLUoxetine (PROZAC) 20 mg capsule Take 1 capsule by mouth once daily. Take with 40 mg capsule to total 60 mg a day omeprazole (PRILOSEC) 20 mg capsule Take 1 capsule by mouth once daily. (Patient taking differently: Take 20 mg by mouth once daily. prn) ferrous sulfate (SLOW FE) 140 mg (45 mg iron) TbER Take 1 tablet by mouth twice daily with meals. valACYclovir (VALTREX) 1 gram take 1 tablet by mouth three times a day for 7 days for herpes outbreaks magnesium oxide 200 mg magnesium tab Take by mouth. Pt takes twice daily cholecalciferol, vitamin D3, 10 mcg (400 unit) cap Take 400 Units by mouth once daily. Pt takes twice daily vitamin B complex (B COMPLEX 1 ORAL) Take by mouth. cetirizine (ZYRTEC) 10 mg tablet Take 1 tablet by mouth once daily. For congestion No current facility-administered medications for this visit. ALLERGIES Allergen Reactions Tidbviy-Wut-Mfkkhut* Shortness of Breath Vicodin [Hydrocodon* GI Upset nausea / Social History Tobacco Use Smoking status: Never Smokeless tobacco: Never Substance Use Topics Alcohol use: No Drug use: No ROS: See HPI PE: BP 110/80 Pulse 64 Temp (Src) 98.8 (Left Tympanic) Resp 20 Wt 276 lb (125.2kg) LMP 07/30/2014 Gen: A&OX3, NAD, non-toxic appearing HEENT: PERRLA, EOMs intact b/l, nares without drainage, pharynx without erythema, exudate, lesions, or drainage. Uvula midline. Neck: No LAD, no thyromegaly, no meningismus. CV: RRR, no murmur Lungs: CTA b/l, no wheezing Skin: No rashes, lesions, or wounds on exposed skin. Trace leg edema, varicose veins present Normal peripheral pulses ASSESSMENT/PLAN: 1. Generalized anxiety disorder - ICD9: 300.02, ICD10: F41.1 (primary diagnosis) Stable, continue same medications 2. Recurrent UTI (urinary tract infection) - ICD9: 599.0, ICD10: N39.0 Recheck urinalysis and urine culture as ordered - URINE CULTURE - URINALYSIS, WITH MICROSCOPIC 3. Factor V Leiden (HCC) - ICD9: 289.81, ICD10: D68.51 Recheck labs as ordered, chronic, continue warfarin - PROTHROMBIN TIME/PT - VITAMIN B12 BLOOD - VITAMIN D 25 HYDROXY - CBC + DIFF - COMP METABOLIC PANEL 4. Edema of right lower leg - ICD9: 782.3, ICD10: R60.0 - stable, chronic, use of lasix as prescribed 5. Anticoagulated on Coumadin - ICD9: V58.61, ICD10: Z79.01 Recheck INR 6. Fatigue, unspecified type - ICD9: 780.79, ICD10: R53.83 Stable, improved with iron use 7. Iron deficiency - ICD9: 280.9, ICD10: E61.1 - stable 8. Varicose veins of bilateral lower extremities with other complications - ICD9: 454.8, ICD10: I83.893 stable Handy Hurst DO Return if no improvement. Follow up with Handy Hurst DO. To ER if develops chest pain, shortness of breath Discussed risks, benefits, alternatives, and potential side effects of medications. Patient/Guardian expressed understanding and agreed with the plan. See patient instructions. Handy Hurst DO [address] [place] [address] documented in this encounter [facility] 06-12-2022 Miscellaneous Notes Patient phones requesting refills as follows: Requested Prescriptions Pending Prescriptions Disp Refills furosemide (LASIX) 20 mg tablet [Pharmacy Med Name: furosemide 20 mg tablet] 60 tablet 5 Sig: Take 1 tablet by mouth twice daily. propranolol (INDERAL) 40 mg tablet [Pharmacy Med Name: propranolol 40 mg tablet] 90 tablet 5 Sig: TAKE 1 TABLET BY MOUTH DAILY FLUoxetine (PROZAC) 40 mg capsule [Pharmacy Med Name: fluoxetine 40 mg capsule] 90 capsule 5 Sig: Take 1 capsule by mouth once daily. CELINA-05/28/22 Labs-01/24/22 NOV-06/25/22 med filled 08/07/21 Please review and advise. Charisse Munoz LPN documented in this encounter [facility] 05-28-2022 Instructions Shelly Huynh APRN.DISABILITY ATTORNEY - 05/28/2022 12:11 PM EST You can take the Azo medication 3 times daily as needed. Can take for 3 days if needed. Take the Cipro twice daily with food. For 5 days. We'll let you know when we get the culture results. Keep pushing fluids. Cranberry juice is good to. documented in this encounter [facility] 05-28-2022 History of Present illness Narrative Chief Complaint Patient presents with: UTI: Burning and lower back pain x 4 days HPI Vero Holt is a 52 year old female who presents here today for Above Complaints. Today: Sx started 3 days. Burning with urination, urgency. Has had a couple episodes of incontinence. Has not noticed any blood. Has been pushing fluids. Has used Azo with a little temporary relief. No fever. Past medical history, appointments, medications, allergies reviewed. Previous Medical History PAST MEDICAL HISTORY Diagnosis Date Blood dyscrasia DVT of upper extremity (deep vein thrombosis) (HCC) 2004 left upper arm after gallbladder surgery BEBE (generalized anxiety disorder) Migraine, unspecified, without mention of intractable migraine without mention of status migrainosus Nummular eczema 07/2014 Other acute embolism veins 2007 left leg Other and unspecified coagulation defects Factor V Leiden deficiency Symptomatic menopausal or female climacteric states perimenopausal Previous Surgical History PAST SURGICAL HISTORY Procedure Laterality Date DELIVERY ONLY 1996 , low cervical CHOLECYSTECTOMY 2004 Cholecystectomy COLONOSCOPY FLX DX W/COLLJ SPEC WHEN PFRMD 12/03/2019 Colonoscopy ESOPHAGOGASTRODUODENOSCOPY TRANSORAL DIAGNOSTIC 12/03/2019 EGD LIG/TRNSXJ FLP TUBE ABDL/VAG APPR UNI/BI 1996 Family History FAMILY HISTORY Problem Relation Age of Onset Diabetes Mother diet Thyroid Mother other (clotting disorder) Mother Factor V Leiden deficiency Hypertension Father asthma, DM Diabetes Father on pills Asthma Father Cancer Maternal Grandfather lung - smoker Stroke Paternal Grandmother age 84 Patient Allergies ALLERGIES Allergen Reactions Klettzc-Ppt-Jwgjzmi* Shortness of Breath Vicodin [Hydrocodon* GI Upset nausea Current Medications Current Outpatient Medications on File Prior to Visit Medication Sig warfarin (COUMADIN) 4 mg tablet Take 1 and 1/2 tablets (6mg) by mouth once daily EXCEPT 1 tablet (4mg) SATURDAY busPIRone (BUSPAR) 7.5 mg tablet Take 1 tablet by mouth at bedtime as needed (INSOMNIA). FLUoxetine (PROZAC) 20 mg capsule Take 1 capsule by mouth once daily. Take with 40 mg capsule to total 60 mg a day omeprazole (PRILOSEC) 20 mg capsule Take 1 capsule by mouth once daily. (Patient taking differently: Take 20 mg by mouth once daily. prn) furosemide (LASIX) 20 mg tablet Take 1 tablet by mouth twice daily. (Patient taking differently: Take 20 mg by mouth twice daily. Once daily) ferrous sulfate (SLOW FE) 140 mg (45 mg iron) TbER Take 1 tablet by mouth twice daily with meals. propranolol (INDERAL) 40 mg tablet Take 1 tablet by mouth once daily. valACYclovir (VALTREX) 1 gram take 1 tablet by mouth three times a day for 7 days for herpes outbreaks FLUoxetine HCl (PROZAC) 40 mg capsule Take 1 capsule by mouth once daily. magnesium oxide 200 mg magnesium tab Take by mouth. Pt takes twice daily cholecalciferol, vitamin D3, 10 mcg (400 unit) cap Take 400 Units by mouth once daily. Pt takes twice daily vitamin B complex (B COMPLEX 1 ORAL) Take by mouth. No current facility-administered medications on file prior to visit. Social History Social History Tobacco Use Smoking status: Never Smokeless tobacco: Never Substance Use Topics Alcohol use: No Drug use: No Review of Symptoms REVIEW OF SYSTEMS See HPI, otherwise negative EXAM: BP 120/84 (BP Site: Left Arm, BP Position: Sitting, BP Cuff Size: Regular Adult) Pulse 66 Temp 36.4 C (97.6 F) Resp 16 Wt 125.6 kg (276 lb 12.8 oz) LMP 07/30/2014 SpO2 97% BMI 47.51 kg/m General Appearance: Well appearing, alert, in no acute distress, well-hydrated, well nourished. and Morbidly obese. Lungs: Lungs clear to auscultation. No wheezing, rhonchi, rales.. Heart: RRR without murmur, gallop, or rubs. No ectopy. Abdomen: Normal abdominal exam, Abdomen soft, non-tender. Bowel sounds normal. No masses, organomegaly, Negative CVA tenderness. Health Maintenance List HEPATITIS B(1 of 3 - 3-dose series) Never done COVID-19 VACCINE(1) Never done HEPATITIS C SCREENING Never done HIV SCREENING Never done SHINGRIX VACCINE(1 of 2) Never done DTAP,TDAP,TD(2 - Td or Tdap) due on 11/15/2018 DEPRESSION ASSESSMENT Never done INFLUENZA(1) due on 02/08/2022 PAP TESTING due on 10/01/2022 HPV TESTING due on 10/01/2022 MAMMOGRAM due on 02/27/2023 DIABETES SCREEN due on 01/23/2025 LIPID SCREEN due on 01/23/2027 COLORECTAL CANCER SCREENING due on 12/02/2029 Data reviewed Previous records, office notes ASSESSMENT/PLAN: 1. Burning with urination - ICD9: 788.1, ICD10: R30.0 (primary diagnosis) acute - UA positive for nithya esterase, hematuria, proteinuria, and nitrates - Send urine for culture - Begin treatment with Ciprofloxacin 250 mg BID for 5 days - Patient education for prevention given - UA DIP, URINE (POC) - CIPROFLOXACIN 250 MG TABLET - URINE CULTURE 2. Acute low back pain without sciatica, unspecified back pain laterality - ICD9: 724.2, ICD10: M54.50 - UA DIP, URINE (POC) - CIPROFLOXACIN 250 MG TABLET - URINE CULTURE 3. Acute cystitis with hematuria - ICD9: 595.0, ICD10: N30.01 - UA DIP, URINE (POC) - CIPROFLOXACIN 250 MG TABLET - URINE CULTURE Shelly Huynh APRN.DISABILITY ATTORNEY documented in this encounter [facility] 02-27-2022 Miscellaneous Notes February 27, 2022 PID: [id number] Vero Holt [address] [place] [address] Dear Ms. oHlt, We are pleased to inform you that the results of your recent breast imaging exam on 02/27/2022 are normal. Early detection of cancer is very important. We also understand recommendations regarding breast cancer screening are controversial. Please discuss with your primary care provider which strategy is best for you and whether a mammogram is right for you. Your imaging studies and report will be kept on file at [facility] as part of your permanent medical record and are available for your continuing care. Thank you for allowing us to help in meeting your health care needs. Sincerely, Dr. Gant Interpreting Radiologist [facility] (Normal over 40) documented in this encounter [facility] 02-27-2022 History of Present illness Narrative Radiology Service Progress Note PATIENT NAME: Vero Holt DATE OF SERVICE: February 27, 2022 TIME: 2:04 PM PATIENT IDENTITY VERIFICATION COMPLETED USING TWO (2) IDENTIFIERS: Name and Date of confirmed by patient verbally. FALL SCREENING: Has the patient had 2 falls in the last year or 1 fall with injury or currently using an Ambulatory Assistive Device (Walker, Cane, Wheelchair, Crutches, etc.)? No PATIENT GENDER DATA: Female. status: : No status: NO. PATIENT RELEVANT IMPLANT DATA REVIEWED: Not Applicable RADIOLOGY DEPARTMENT: Bone Density PERIPHERAL IV DATA: Not applicable SIGNED BY: RT Josephine(R) February 27, 2022 2:04 PM documented in this encounter [facility] 02-27-2022 History of Present illness Narrative Radiology Service Progress Note PATIENT NAME: Vero Holt DATE OF SERVICE: February 27, 2022 TIME: 1:23 PM PATIENT IDENTITY VERIFICATION COMPLETED USING TWO (2) IDENTIFIERS: Name and Date of confirmed by patient verbally. FALL SCREENING: Has the patient had 2 falls in the last year or 1 fall with injury or currently using an Ambulatory Assistive Device (Walker, Cane, Wheelchair, Crutches, etc.)? No PATIENT GENDER DATA: Female. status: : No status: NO. PATIENT RELEVANT IMPLANT DATA REVIEWED: Not Applicable RADIOLOGY DEPARTMENT: Mammography PERIPHERAL IV DATA: Not applicable SIGNED BY: RT Radha(R) February 27, 2022 1:23 PM documented in this encounter [facility] 01-24-2022 History of Present illness Narrative CC: Vero Holt is a 52 year old female who presents to the office for follow up HPI: Seen in office on 07/05/21, at that time Clotting disorder, chronic use of warfarin, last INR 1 week ago at 2.9, no recent bleeding or bruising. BEBE, taking prozac 40 mg a day, interested in increased dose, Has had a lot of stressors with new job, which she is enjoying, as well as other causes. No SI or HI. No depression, just irritability symptoms mostly. Leg swelling, right >left, long standing, started after having covid 19, lasix 20 mg a day is helping but not fully. She is wondering if dose adjustment can be made at this time. No other symptoms. Iron deficiency, still having fatigue, also having hair thinning symptoms which has been increased, no bald spots seen At last appt in September 2021 Iron deficiency, feels the fatigue and hair thinning symptoms are much improved Hemoglobin (g/dL) Date Value 09/28/2021 13.9 04/27/2021 10.6 Hematocrit (%) Date Value 09/28/2021 41.1 07/06/2021 38.9 WBC (k/uL) Date Value 09/28/2021 6.19 04/27/2021 3.69 Hx of factor V leiden deficiency and DVT, taking coumadin as prescribed, no concerns. Mood, overall feels she is doing well. Taking Prozac. Struggling with some insomnia. Able to fall asleep ok between 8-10 pm, Spontaneously waking up in middle of the night around 12 midnight or 1-2 am and struggling at times to fall asleep again. No difficulty falling asleep in the evening. Has been on OTC medications without relief. Currently Mood, stable, taking Prozac as prescribed, still struggles at times with sleep but thinks the buspirone is helpful. Leg edema, stable, use of lasix as needed as prescribed. Chronic anticoagulation, factor V deficiency and history of DVT, taking her coumadin as prescribed, needing INR recheck Dyslipidemia, knows need for weight loss, not able to afford new weight loss medications since insurance don't cover these. Cholesterol, Total Date Value Ref Range Status 01/23/2022 252 (H) <200 mg/dL Final Comment: <200 mg/dL, Desirable 200-239 mg/dL, Borderline high >239 mg/dL, High HDL Cholesterol Date Value Ref Range Status 01/23/2022 47 >39 mg/dL Final Comment: 40-59 mg/dL, Acceptable >59 mg/dL, High: Negative risk factor for coronary heart disease <40 mg/dL, Low: Positive risk factor for coronary heart disease LDL Cholesterol Date Value Ref Range Status 01/23/2022 175 (H) <100 mg/dL Final Comment: <100 mg/dL, Optimal 100-129 mg/dL, Near optimal/above optimal 130-159 mg/dL, Borderline high 160-189 mg/dL, High >189 mg/dL, Very high Secondary prevention optimal LDL Cholesterol levels are recommended to be < 70 mg/dL Triglyceride Date Value Ref Range Status 01/23/2022 149 <150 mg/dL Final Comment: <150 mg/dL, Normal 150-199 mg/dL, Borderline high 200-499 mg/dL, High >499 mg/dL, Very high Glucose (mg/dL) Date Value 01/23/2022 77 07/06/2021 87 Potassium (mmol/L) Date Value 01/23/2022 3.9 07/06/2021 3.5 Sodium (mmol/L) Date Value 01/23/2022 141 07/06/2021 137 Chloride (mmol/L) Date Value 01/23/2022 101 07/06/2021 102 CO2 (mmol/L) Date Value 01/23/2022 28 07/06/2021 23 Creatinine (mg/dL) Date Value 01/23/2022 1.34 07/06/2021 1.13 BUN (mg/dL) Date Value 01/23/2022 15 07/06/2021 18 Anion Gap (mmol/L) Date Value 01/23/2022 12 07/06/2021 12 Calcium (mg/dL) Date Value 07/06/2021 8.6 Calcium, Total (mg/dL) Date Value 01/23/2022 9.7 Protein, Total (g/dL) Date Value 01/23/2022 7.4 07/06/2021 6.5 Albumin (g/dL) Date Value 01/23/2022 4.4 07/06/2021 3.8 Bilirubin, Total (mg/dL) Date Value 01/23/2022 1.3 07/06/2021 0.7 Alkaline Phosphatase (U/L) Date Value 01/23/2022 125 07/06/2021 108 AST (U/L) Date Value 01/23/2022 29 07/06/2021 19 ALT (U/L) Date Value 01/23/2022 29 07/06/2021 18 Hemoglobin (g/dL) Date Value 01/23/2022 14.4 04/27/2021 10.6 Hematocrit (%) Date Value 01/23/2022 43.3 07/06/2021 38.9 WBC (k/uL) Date Value 01/23/2022 6.45 04/27/2021 3.69 PAST MEDICAL HISTORY Diagnosis Date Blood dyscrasia DVT of upper extremity (deep vein thrombosis) (HCC) 2004 left upper arm after gallbladder surgery BEBE (generalized anxiety disorder) Migraine, unspecified, without mention of intractable migraine without mention of status migrainosus Nummular eczema 07/2014 Other acute embolism veins 2007 left leg Other and unspecified coagulation defects Factor V Leiden deficiency Symptomatic menopausal or female climacteric states perimenopausal PAST SURGICAL HISTORY Procedure Laterality Date DELIVERY ONLY 1996 , low cervical CHOLECYSTECTOMY 2004 Cholecystectomy COLONOSCOPY FLX DX W/COLLJ SPEC WHEN PFRMD 12/03/2019 Colonoscopy ESOPHAGOGASTRODUODENOSCOPY TRANSORAL DIAGNOSTIC 12/03/2019 EGD LIG/TRNSXJ FLP TUBE ABDL/VAG APPR UNI/BI 1996 Current Outpatient Medications Medication Sig warfarin (COUMADIN) 4 mg tablet Take 1 and 1/2 tablets (6mg) by mouth once daily EXCEPT 1 tablet (4mg) SATURDAY busPIRone (BUSPAR) 7.5 mg tablet Take 1 tablet by mouth at bedtime as needed (INSOMNIA). FLUoxetine (PROZAC) 20 mg capsule Take 1 capsule by mouth once daily. Take with 40 mg capsule to total 60 mg a day omeprazole (PRILOSEC) 20 mg capsule Take 1 capsule by mouth once daily. (Patient taking differently: Take 20 mg by mouth once daily. prn ) furosemide (LASIX) 20 mg tablet Take 1 tablet by mouth twice daily. (Patient taking differently: Take 20 mg by mouth twice daily. Once daily ) ferrous sulfate (SLOW FE) 140 mg (45 mg iron) TbER Take 1 tablet by mouth twice daily with meals. propranolol (INDERAL) 40 mg tablet Take 1 tablet by mouth once daily. valACYclovir (VALTREX) 1 gram take 1 tablet by mouth three times a day for 7 days for herpes outbreaks FLUoxetine HCl (PROZAC) 40 mg capsule Take 1 capsule by mouth once daily. magnesium oxide 200 mg magnesium tab Take by mouth. Pt takes twice daily cholecalciferol, vitamin D3, (VITAMIN D-3) 10 mcg (400 unit) cap Take 400 Units by mouth once daily. Pt takes twice daily vitamin B complex (B COMPLEX 1 ORAL) Take by mouth. No current facility-administered medications for this visit. ALLERGIES Allergen Reactions Vxlqflm-Ptx-Maxurpd* Shortness of Breath Vicodin [Hydrocodon* GI Upset nausea Social History Tobacco Use Smoking status: Never Smokeless tobacco: Never Substance Use Topics Alcohol use: No Drug use: No ROS: See HPI PE: BP 110/80 Pulse 64 Temp (Src) 97.7 (Left Tympanic) Resp 16 Wt 279 lb (126.6kg) LMP 07/30/2014 Gen: A&OX3, NAD, non-toxic appearing HEENT: PERRLA, EOMs intact b/l, nares without drainage, pharynx without erythema, exudate, lesions, or drainage. Uvula midline. Neck: No LAD, no thyromegaly, no meningismus. CV: RRR, no murmur Lungs: CTA b/l, no wheezing Skin: No rashes, lesions, or wounds on exposed skin. Obese, trace leg edema non pitting, no calf pain Abd: soft, obese, NT, ND ASSESSMENT/PLAN: 1. Factor V Leiden (HCC) - ICD9: 289.81, ICD10: D68.51 (primary diagnosis) Need for INR recheck, continue coumadin, no complications at this time. - PROTHROMBIN TIME/PT - PROTHROMBIN TIME/PT 2. Screening for osteoporosis - ICD9: V82.81, ICD10: Z13.820 - DXA-AXIAL SKELETON 3. Generalized anxiety disorder - ICD9: 300.02, ICD10: F41.1 -continue prozac and prn buspirone, stable 4. Situational insomnia - ICD9: 307.41, ICD10: F51.09 -continue prozac and prn buspirone, stable 5. Anticoagulated on Coumadin - ICD9: V58.61, ICD10: Z79.01 Need for INR recheck - PROTHROMBIN TIME/PT 6. Dyslipidemia - ICD9: 272.4, ICD10: E78.5 - suboptimal control - Encouraged following a low fat, low cholesterol diet. - Discussed the benefits of regular aerobic exercise and weight loss. - Check fasting lipid panel and ALT in 12 weeks. - LIPID PANEL BASIC - COMP METABOLIC PANEL Handy Hurst DO Return if no improvement. Follow up with Handy Hurst DO. To ER if develops chest pain, shortness of breath Discussed risks, benefits, alternatives, and potential side effects of medications. Patient/Guardian expressed understanding and agreed with the plan. See patient instructions. Handy Hurst DO [address] [place] [address] documented in this encounter [facility] 11-08-2021 Miscellaneous Notes The following approved medication requests have been transmitted electronically. Signed Prescriptions Disp Refills warfarin (COUMADIN) 4 mg tablet 45 tablet 11 Sig: Take 1 and 1/2 tablets (6mg) by mouth once daily EXCEPT 1 tablet (4mg) SATURDAY CHAPO: No Cortney Huynh APRN.ROS documented in this encounter [facility] 10-25-2021 Miscellaneous Notes Refills at pharm. Pt notified. Patient has been identified by name and date of : Yes Pending Prescriptions Disp Refills FLUOXETINE 40 MG CAPSULE 90 capsule 3 Sig: Take 1 capsule by mouth once daily. CHAPO: No RX INSTRUCTIONS: Patient aware RX will be sent to pharmacy. No need to notify patient. Andressa Barrios documented in this encounter [facility] 10-06-2021 History of Present illness Narrative CC: Vero Holt is a 51 year old female who presents to the office for follow up. HPI: Seen in office last on 07/05/21, at that time Clotting disorder, chronic use of warfarin, last INR 1 week ago at 2.9, no recent bleeding or bruising. BEBE, taking prozac 40 mg a day, interested in increased dose, Has had a lot of stressors with new job, which she is enjoying, as well as other causes. No SI or HI. No depression, just irritability symptoms mostly. Leg swelling, right >left, long standing, started after having covid 19, lasix 20 mg a day is helping but not fully. She is wondering if dose adjustment can be made at this time. No other symptoms. Iron deficiency, still having fatigue, also having hair thinning symptoms which has been increased, no bald spots seen Currently Iron deficiency, feels the fatigue and hair thinning symptoms are much improved Hemoglobin (g/dL) Date Value 09/28/2021 13.9 04/27/2021 10.6 Hematocrit (%) Date Value 09/28/2021 41.1 07/06/2021 38.9 WBC (k/uL) Date Value 09/28/2021 6.19 04/27/2021 3.69 Hx of factor V leiden deficiency and DVT, taking coumadin as prescribed, no concerns. Mood, overall feels she is doing well. Taking Prozac. Struggling with some insomnia. Able to fall asleep ok between 8-10 pm, Spontaneously waking up in middle of the night around 12 midnight or 1-2 am and struggling at times to fall asleep again. No difficulty falling asleep in the evening. Has been on OTC medications without relief. PAST MEDICAL HISTORY Diagnosis Date Blood dyscrasia DVT of upper extremity (deep vein thrombosis) (HCC) 2004 left upper arm after gallbladder surgery BEBE (generalized anxiety disorder) Migraine, unspecified, without mention of intractable migraine without mention of status migrainosus Nummular eczema 07/2014 Other acute embolism veins 2008 left leg Other and unspecified coagulation defects Factor V Leiden deficiency Symptomatic menopausal or female climacteric states perimenopausal PAST SURGICAL HISTORY Procedure Laterality Date DELIVERY ONLY 1996 , low cervical CHOLECYSTECTOMY 2004 Cholecystectomy COLONOSCOPY FLX DX W/COLLJ SPEC WHEN PFRMD 12/03/2019 Colonoscopy ESOPHAGOGASTRODUODENOSCOPY TRANSORAL DIAGNOSTIC 12/03/2019 EGD LIG/TRNSXJ FLP TUBE ABDL/VAG APPR UNI/BI 1996 Social History: Social History Tobacco Use Smoking status: Never Smoker Smokeless tobacco: Never Used Substance Use Topics Alcohol use: No Drug use: No FAMILY HISTORY Problem Relation Age of Onset Diabetes Mother diet Thyroid Mother other (clotting disorder) Mother Factor V Leiden deficiency Hypertension Father asthma, DM Diabetes Father on pills Asthma Father Cancer Maternal Grandfather lung - smoker Stroke Paternal Grandmother age 84 Current Outpatient prescriptions: warfarin (COUMADIN) 4 mg tablet Take 1 and 1/2 tablets (6mg) by mouth once daily EXCEPT 1 tablet (4mg) SATURDAY FLUoxetine (PROZAC) 20 mg capsule Take 1 capsule by mouth once daily. Take with 40 mg capsule to total 60 mg a day omeprazole (PRILOSEC) 20 mg capsule Take 1 capsule by mouth once daily. furosemide (LASIX) 20 mg tablet Take 1 tablet by mouth twice daily. ferrous sulfate (SLOW FE) 140 mg (45 mg iron) TbER Take 1 tablet by mouth twice daily with meals. propranolol (INDERAL) 40 mg tablet Take 1 tablet by mouth once daily. valACYclovir (VALTREX) 1 gram take 1 tablet by mouth three times a day for 7 days for herpes outbreaks FLUoxetine HCl (PROZAC) 40 mg capsule Take 1 capsule by mouth once daily. magnesium oxide 200 mg magnesium tab Take by mouth. Pt takes twice daily cholecalciferol, vitamin D3, (VITAMIN D-3) 10 mcg (400 unit) cap Take 400 Units by mouth once daily. Pt takes twice daily vitamin B complex (B COMPLEX 1 ORAL) Take by mouth. busPIRone (BUSPAR) 7.5 mg tablet Take 1 tablet by mouth at bedtime as needed (INSOMNIA). Allergies: ALLERGIES Allergen Reactions Epmughw-Ger-Iqlxlxr* Shortness of Breath Vicodin [Hydrocodon* GI Upset nausea ROS: See HPI PE: 10/04/21 1628 BP: 116/82 Pulse: 61 SpO2: 98% Weight: 123.8 kg (273 lb) Gen: A&O, NAD, non-toxic appearing, Pleasant, cooperative HEENT: NT/AC, PERRLA, EOMs intact b/l, nares clear and patent b/l, pharynx without erythema, exudate or lesions. Uvula midline. EACs without erythema or debris. TMs pearly sifuentes with intact landmarks b/l. Neck: supple, No cervical LAD, no thyromegaly, no carotid bruits CV: RRR, normal S1 and S2, no murmurs, no gallops, no rubs, Pulses 2+ and symmetric in UE and LE b/l Lungs: normal respiratory effort, CTA b/l, no wheezing or rhonchi or rales Abd: soft, obese, NT, ND, +BS, no hepatosplenomegaly MS: FROM all 4 extremities Neuro: CN II-XII intact b/l Skin: warm, dry, intact, No rashes or lesions on exposed skin. No edema, normal pulses ASSESSMENT/PLAN: 1. Situational insomnia - ICD9: 307.41, ICD10: F51.09 (primary diagnosis) - add on prn buspirone, if not effective then consider prn ativan or alprazolam, she is having likely menopausal related sleep disorder changes. If not improving then consider YONATAN screening as d/w her today - BUSPIRONE 7.5 MG TABLET 2. Factor V Leiden (HCC) - ICD9: 289.81, ICD10: D68.51 - continue coumadin, stable 3. Anticoagulated on Coumadin - ICD9: V58.61, ICD10: Z79.01 continue coumadin, no SE with medication 4. Generalized anxiety disorder - ICD9: 300.02, ICD10: F41.1 - continue prozac, stable 5. Fatigue, unspecified type - ICD9: 780.79, ICD10: R53.83 - improving 6. Hair loss - ICD9: 704.00, ICD10: L65.9 - improving, secondary to iron deficiency 7. Anemia, unspecified type - ICD9: 285.9, ICD10: D64.9 - stable, Improving with replacement of iron Handy Hurst DO To ER if develops chest pain, shortness of breath, or severe worsening of symptoms. Discussed risks, benefits, alternatives, and potential side effects of medications. Patient expressed understanding and agreed with the plan. Handy Hurst DO [address] [place] [address] documented in this encounter [facility] 10-04-2021 Instructions Handy Hurst DO - 10/04/2021 4:51 PM EDT Okay to try Buspirone as needed when waking up in the middle of the night Weight loss medications Contrave Or Adipex (phentermine) documented in this encounter [facility] 09-29-2021 Miscellaneous Notes The following approved medication requests have been transmitted electronically. Signed Prescriptions Disp Refills warfarin (COUMADIN) 4 mg tablet 45 tablet 0 Sig: Take 1 and 1/2 tablets (6mg) by mouth once daily EXCEPT 1 tablet (4mg) SATURDAY CHAPO: No Authorizing Provider: HANDY HURST DO Pt notified via [employer] message of providers instructions. Please send refill to patients pharmacy. rx pended. Alejandra Chen Ma Continue same dose coumadin, recheck INR 4 weeks Handy Hurst DO Last INR: PT INR 2.0 09/28/2021 Current dose of coumadin is: 6 mg daily, except 4 mg on Saturday ( I believe is the dosage). Last date of dose change: . Previous INR (date and result): 2.9 on 06/29/21 Additional Clinical Information or narrative: yes: Pt not checking INR routinely. Currently a [employer] message in about refill, we were awaiting her results. Shanta Tinajero Ma documented in this encounter [facility] 09-29-2021 Miscellaneous Notes Cheryl - I started an anticoagulation encounter as pt had her INR done today. Close this encounter once completed and advise in anticoagulation encounter. Shanta Tinajero Ma INR order placed. I can send her rx refills once I receive this result. Shelly Huynh APRN.DISABILITY ATTORNEY Please see pt reply It looks like she hasn't had an INR checked since 06/29/21. Please confirm with patient that she hasn't had this completed elsewhere. I cannot send in her refills until we have this updated level, as it is not safe to continue a blood thinner like this without knowing where her INR level is at. Please also remind her that she should let us know prior to her rx being completely gone, so that we have time to send in the rx and the pharmacy has time to fill the rx. Shelly Huynh APRN.CNP Last OV: 07/05/21 Next OV: 10/04/21 Last Rx: 08/07/21 #45 w/0. Last INR 06/29/21. Pt overdue for INR. documented in this encounter [facility] documented as of this encounter (statuses as of 09/29/2021) [facility] History of Past illness Narrative* Problem Noted Date Resolved Date Osteoporosis 10/09/2010 07/16/2012 Routine general medical exam ination at a health care facility 01/16/2010 07/16/2012 Overview: 01/16/2010, from Dr. Burgos Routine gynecological examination 01/16/2010 07/16/2012 Unspecified Site of Ankle Sprain and Strain 07/1202/05/2015 Symptomatic Menopausal or Female Climacteric [place] 10/14/2014 Overview: perimenopausal DVT of Upper Extremity (Deep Vein Thrombosis) 10/14/2014 Overview: left upper arm after gallbladder surgery documented as of this encounter (statuses as of 10/02/2021) [facility] History of Past illness Narrative* Problem Noted Date Resolved Date Osteoporosis 10/09/2010 07/16/2012 Routine general medical exam ination at a health care facility 01/16/2010 07/16/2012 Overview: 01/16/2010, from Dr. Burgos Routine gynecological examination 01/16/2010 07/16/2012 Unspecified Site of Ankle Sprain and Strain 07/1202/05/2015 Symptomatic Menopausal or Female Climacteric [place] 10/14/2014 Overview: perimenopausal DVT of Upper Extremity (Deep Vein Thrombosis) 10/14/2014 Overview: left upper arm after gallbladder surgery documented as of this encounter (statuses as of 10/06/2021) [facility] History of Past illness Narrative* Problem Noted Date Resolved Date Osteoporosis 10/09/2010 07/16/2012 Routine general medical exam ination at a health care facility 01/16/2010 07/16/2012 Overview: 01/16/2010, from Dr. Burgos Routine gynecological examination 01/16/2010 07/16/2012 Unspecified Site of Ankle Sprain and Strain 07/1202/05/2015 Symptomatic Menopausal or Female Climacteric [place] 10/14/2014 Overview: perimenopausal DVT of Upper Extremity (Deep Vein Thrombosis) 10/14/2014 Overview: left upper arm after gallbladder surgery documented as of this encounter (statuses as of 10/25/2021) [facility] History of Past illness Narrative* Problem Noted Date Resolved Date Osteoporosis 10/09/2010 07/16/2012 Routine general medical exam ination at a health care facility 01/16/2010 07/16/2012 Overview: 01/16/2010, from Dr. Burgos Routine gynecological examination 01/16/2010 07/16/2012 Unspecified Site of Ankle Sprain and Strain 02/2 02/05/2015 Symptomatic Menopausal or Female Climacteric [place] 10/14/2014 Overview: perimenopausal DVT of Upper Extremity (Deep Vein Thrombosis) 10/14/2014 Overview: left upper arm after gallbladder surgery documented as of this encounter (statuses as of 11/08/2021) [facility] History of Past illness Narrative* Problem Noted Date Resolved Date Osteoporosis 10/09/2010 07/16/2012 Routine general medical exam ination at a health care facility 01/16/2010 07/16/2012 Overview: 01/16/2010, from Dr. Burgos Routine gynecological examination 01/16/2010 07/16/2012 Unspecified Site of Ankle Sprain and Strain 02/2 02/05/2015 Symptomatic Menopausal or Female Climacteric [place] 10/14/2014 Overview: perimenopausal DVT of Upper Extremity (Deep Vein Thrombosis) 10/14/2014 Overview: left upper arm after gallbladder surgery documented as of this encounter (statuses as of 01/03/2022) [facility] History of Past illness Narrative* Problem Noted Date Resolved Date Osteoporosis 10/09/2010 07/16/2012 Routine general medical exam ination at a health care facility 01/16/2010 07/16/2012 Overview: 01/16/2010, from Dr. Burgos Routine gynecological examination 01/16/2010 07/16/2012 Unspecified Site of Ankle Sprain and Strain 02/2 02/05/2015 Symptomatic Menopausal or Female Climacteric [place] 10/14/2014 Overview: perimenopausal DVT of Upper Extremity (Deep Vein Thrombosis) 10/14/2014 Overview: left upper arm after gallbladder surgery documented as of this encounter (statuses as of 01/15/2022) [facility] History of Past illness Narrative* Problem Noted Date Resolved Date Osteoporosis 10/09/2010 07/16/2012 Routine general medical exam ination at a health care facility 01/16/2010 07/16/2012 Overview: 01/16/2010, from Dr. Burgos Routine gynecological examination 01/16/2010 07/16/2012 Unspecified Site of Ankle Sprain and Strain 02/2 02/05/2015 Symptomatic Menopausal or Female Climacteric [place] 10/14/2014 Overview: perimenopausal DVT of Upper Extremity (Deep Vein Thrombosis) 10/14/2014 Overview: left upper arm after gallbladder surgery documented as of this encounter (statuses as of 01/25/2022) [facility] History of Past illness Narrative* Problem Noted Date Resolved Date Osteoporosis 10/09/2010 07/16/2012 Routine general medical exam ination at a health care facility 01/16/2010 07/16/2012 Overview: 01/16/2010, from Dr. Burgos Routine gynecological examination 01/16/2010 07/16/2012 Unspecified Site of Ankle Sprain and Strain 02/02/05/2015 Symptomatic Menopausal or Female Climacteric [place] 10/14/2014 Overview: perimenopausal DVT of Upper Extremity (Deep Vein Thrombosis) 10/14/2014 Overview: left upper arm after gallbladder surgery documented as of this encounter (statuses as of 02/28/2022) [facility] History of Past illness Narrative* Problem Noted Date Resolved Date Osteoporosis 10/09/2010 07/16/2012 Routine general medical exam ination at a health care facility 01/16/2010 07/16/2012 Overview: 01/16/2010, from Dr. Burgos Routine gynecological examination 01/16/2010 07/16/2012 Unspecified Site of Ankle Sprain and Strain 02/2 02/05/2015 Symptomatic Menopausal or Female Climacteric [place] 10/14/2014 Overview: perimenopausal DVT of Upper Extremity (Deep Vein Thrombosis) 10/14/2014 Overview: left upper arm after gallbladder surgery documented as of this encounter (statuses as of 02/28/2022) [facility] History of Past illness Narrative* Problem Noted Date Resolved Date Osteoporosis 10/09/2010 07/16/2012 Routine general medical exam ination at a health care facility 01/16/2010 07/16/2012 Overview: 01/16/2010, from Dr. Burgos Routine gynecological examination 01/16/2010 07/16/2012 Unspecified Site of Ankle Sprain and Strain 07/1202/05/2015 Symptomatic Menopausal or Female Climacteric [place] 10/14/2014 Overview: perimenopausal DVT of Upper Extremity (Deep Vein Thrombosis) 10/14/2014 Overview: left upper arm after gallbladder surgery documented as of this encounter (statuses as of 03/01/2022) [facility] History of Past illness Narrative* Problem Noted Date Resolved Date Osteoporosis 10/09/2010 07/16/2012 Routine general medical exam ination at a health care facility 01/16/2010 07/16/2012 Overview: 01/16/2010, from Dr. Burgos Routine gynecological examination 01/16/2010 07/16/2012 Unspecified Site of Ankle Sprain and Strain 07/1202/05/2015 Symptomatic Menopausal or Female Climacteric [place] 10/14/2014 Overview: perimenopausal DVT of Upper Extremity (Deep Vein Thrombosis) 10/14/2014 Overview: left upper arm after gallbladder surgery documented as of this encounter (statuses as of 05/28/2022) [facility] History of Past illness Narrative* Problem Noted Date Resolved Date Osteoporosis 10/09/2010 07/16/2012 Routine general medical exam ination at a health care facility 01/16/2010 07/16/2012 Overview: 01/16/2010, from Dr. Burgos Routine gynecological examination 01/16/2010 07/16/2012 Unspecified Site of Ankle Sprain and Strain /2 02/05/2015 Symptomatic Menopausal or Female Climacteric [place] 10/14/2014 Overview: perimenopausal DVT of Upper Extremity (Deep Vein Thrombosis) 10/14/2014 Overview: left upper arm after gallbladder surgery documented as of this encounter (statuses as of 06/15/2022) [facility] History of Past illness Narrative* Problem Noted Date Resolved Date Osteoporosis 10/09/2010 07/16/2012 Routine general medical exam ination at a health care facility 01/16/2010 07/16/2012 Overview: 01/16/2010, from Dr. Burgos Routine gynecological examination 01/16/2010 07/16/2012 Unspecified Site of Ankle Sprain and Strain 07/1202/05/2015 Symptomatic Menopausal or Female Climacteric [place] 10/14/2014 Overview: perimenopausal DVT of Upper Extremity (Deep Vein Thrombosis) 10/14/2014 Overview: left upper arm after gallbladder surgery documented as of this encounter (statuses as of 06/26/2022) [facility] History of Past illness Narrative* Problem Noted Date Resolved Date Osteoporosis 10/09/2010 07/16/2012 Routine general medical exam ination at a health care facility 01/16/2010 07/16/2012 Overview: 01/16/2010, from Dr. Burgos Routine gynecological examination 01/16/2010 07/16/2012 Unspecified Site of Ankle Sprain and Strain /2 02/05/2015 Symptomatic Menopausal or Female Climacteric [place] 10/14/2014 Overview: perimenopausal DVT of Upper Extremity (Deep Vein Thrombosis) 10/14/2014 Overview: left upper arm after gallbladder surgery documented as of this encounter (statuses as of 07/04/2022) [facility] History of Past illness Narrative* Problem Noted Date Resolved Date Osteoporosis 10/09/2010 07/16/2012 Routine general medical exam ination at a health care facility 01/16/2010 07/16/2012 Overview: 01/16/2010, from Dr. Burgos Routine gynecological examination 01/16/2010 07/16/2012 Unspecified Site of Ankle Sprain and Strain 02/2 02/05/2015 Symptomatic Menopausal or Female Climacteric [place] 10/14/2014 Overview: perimenopausal DVT of Upper Extremity (Deep Vein Thrombosis) 10/14/2014 Overview: left upper arm after gallbladder surgery documented as of this encounter (statuses as of 07/05/2022) [facility] History of Past illness Narrative* Problem Noted Date Resolved Date Osteoporosis 10/09/2010 07/16/2012 Routine general medical exam ination at a health care facility 01/16/2010 07/16/2012 Overview: 01/16/2010, from Dr. Burgos Routine gynecological examination 01/16/2010 07/16/2012 Unspecified Site of Ankle Sprain and Strain /2 02/05/2015 Symptomatic Menopausal or Female Climacteric [place] 10/14/2014 Overview: perimenopausal DVT of Upper Extremity (Deep Vein Thrombosis) 10/14/2014 Overview: left upper arm after gallbladder surgery documented as of this encounter (statuses as of 08/03/2022) [facility] History of Past illness Narrative* Problem Noted Date Resolved Date Osteoporosis 10/09/2010 07/16/2012 Routine general medical exam ination at a health care facility 01/16/2010 07/16/2012 Overview: 01/16/2010, from Dr. Burgos Routine gynecological examination 01/16/2010 07/16/2012 Unspecified Site of Ankle Sprain and Strain 02/2 2015 Symptomatic Menopausal or Female Climacteric [place] 10/14/2014 Overview: perimenopausal DVT of Upper Extremity (Deep Vein Thrombosis) 10/14/2014 Overview: left upper arm after gallbladder surgery documented as of this encounter (statuses as of 08/14/2022) [facility] History of Past illness Narrative* Problem Noted Date Resolved Date Osteoporosis 10/09/2010 07/16/2012 Routine general medical exam ination at a health care facility 01/16/2010 07/16/2012 Overview: 01/16/2010, from Dr. Burgos Routine gynecological examination 01/16/2010 07/16/2012 Unspecified Site of Ankle Sprain and Strain 07/1202/05/2015 Symptomatic Menopausal or Female Climacteric [place] 10/14/2014 Overview: perimenopausal DVT of Upper Extremity (Deep Vein Thrombosis) 10/14/2014 Overview: left upper arm after gallbladder surgery documented as of this encounter (statuses as of 08/17/2022) [facility] History of Past illness Narrative* Problem Noted Date Resolved Date Osteoporosis 10/09/2010 07/16/2012 Routine general medical exam ination at a health care facility 01/16/2010 07/16/2012 Overview: 01/16/2010, from Dr. Burgos Routine gynecological examination 01/16/2010 07/16/2012 Unspecified Site of Ankle Sprain and Strain 07/1202/05/2015 Symptomatic Menopausal or Female Climacteric [place] 10/14/2014 Overview: perimenopausal DVT of Upper Extremity (Deep Vein Thrombosis) 10/14/2014 Overview: left upper arm after gallbladder surgery documented as of this encounter (statuses as of 08/17/2022) [facility] History of Past illness Narrative* Problem Noted Date Resolved Date Osteoporosis 10/09/2010 07/16/2012 Routine general medical exam ination at a health care facility 01/16/2010 07/16/2012 Overview: 01/16/2010, from Dr. Burgos Routine gynecological examination 01/16/2010 07/16/2012 Unspecified Site of Ankle Sprain and Strain 02/2 02/05/2015 Symptomatic Menopausal or Female Climacteric [place] 10/14/2014 Overview: perimenopausal DVT of Upper Extremity (Deep Vein Thrombosis) 10/14/2014 Overview: left upper arm after gallbladder surgery documented as of this encounter (statuses as of 08/18/2022) [facility] History of Past illness Narrative* Problem Noted Date Resolved Date Osteoporosis 10/09/2010 07/16/2012 Routine general medical exam ination at a health care facility 01/16/2010 07/16/2012 Overview: 01/16/2010, from Dr. Burgos Routine gynecological examination 01/16/2010 07/16/2012 Unspecified Site of Ankle Sprain and Strain 02/2 02/05/2015 Symptomatic Menopausal or Female Climacteric [place] 10/14/2014 Overview: perimenopausal DVT of Upper Extremity (Deep Vein Thrombosis) 10/14/2014 Overview: left upper arm after gallbladder surgery documented as of this encounter (statuses as of 10/16/2022) [facility] History of Past illness Narrative* Problem Noted Date Resolved Date Osteoporosis 10/09/2010 07/16/2012 Routine general medical exam ination at a health care facility 01/16/2010 07/16/2012 Overview: 01/16/2010, from Dr. Burgos Routine gynecological examination 01/16/2010 07/16/2012 Unspecified Site of Ankle Sprain and Strain 02/2 02/05/2015 Symptomatic Menopausal or Female Climacteric [place] 10/14/2014 Overview: perimenopausal DVT of Upper Extremity (Deep Vein Thrombosis) 10/14/2014 Overview: left upper arm after gallbladder surgery documented as of this encounter (statuses as of 12/13/2022) [facility] History of Past illness Narrative* Problem Noted Date Diagnosed Date Resolved Date Osteoporosis 10/09/2010 07/16/2012 Routine general medical exam ination at a health care facility 01/16/2010 07/16/2012 Overview: 01/16/2010, from Dr. Burgos Routine gynecological examination 01/16/2010 07/16/2012 Unspecified Site of Ankle Sprain and Strain 07/30/2008 02/05/2015 Symptomatic Menopausal or Fe male Climacteric States 10/14/2014 Overview: perimenopausal DVT of Upper Extremity (Deep Vein Thrombosis) 10/14/2014 Overview: left upper arm after gallbladder surgery documented as of this encounter (statuses as of 01/09/2023) [facility] History of Past illness Narrative* Problem Noted Date Diagnosed Date Resolved Date Osteoporosis 10/09/2010 07/16/2012 Routine general medical exam ination at a health care facility 01/16/2010 07/16/2012 Overview: 01/16/2010, from Dr. Burgos Routine gynecological examination 01/16/2010 07/16/2012 Unspecified Site of Ankle Sprain and Strain 07/30/2008 02/05/2015 Symptomatic Menopausal or Fe male Climacteric States 10/14/2014 Overview: perimenopausal DVT of Upper Extremity (Deep Vein Thrombosis) 10/14/2014 Overview: left upper arm after gallbladder surgery documented as of this encounter (statuses as of 01/17/2023) [facility] History of Past illness Narrative* Problem Noted Date Diagnosed Date Resolved Date Osteoporosis 10/09/2010 07/16/2012 Routine general medical exam ination at a health care facility 01/16/2010 07/16/2012 Overview: 01/16/2010, from Dr. Burgos Routine gynecological examination 01/16/2010 07/16/2012 Unspecified Site of Ankle Sprain and Strain 07/30/2008 02/05/2015 Symptomatic Menopausal or Fe male Climacteric States 10/14/2014 Overview: perimenopausal DVT of Upper Extremity (Deep Vein Thrombosis) 10/14/2014 Overview: left upper arm after gallbladder surgery documented as of this encounter (statuses as of 04/08/2023) [facility] History of Past illness Narrative* Problem Noted Date Diagnosed Date Resolved Date Osteoporosis 10/09/2010 07/16/2012 Routine general medical exam ination at a health care facility 01/16/2010 07/16/2012 Overview: 01/16/2010, from Dr. Burgos Routine gynecological examination 01/16/2010 07/16/2012 Unspecified Site of Ankle Sprain and Strain 07/30/2008 02/05/2015 Symptomatic Menopausal or Fe male Climacteric States 10/14/2014 Overview: perimenopausal DVT of Upper Extremity (Deep Vein Thrombosis) 10/14/2014 Overview: left upper arm after gallbladder surgery documented as of this encounter (statuses as of 04/14/2023) [facility] History of Past illness Narrative* Problem Noted Date Diagnosed Date Resolved Date Osteoporosis 10/09/2010 07/16/2012 Routine general medical exam ination at a health care facility 01/16/2010 07/16/2012 Overview: 01/16/2010, from Dr. Burgos Routine gynecological examination 01/16/2010 07/16/2012 Unspecified Site of Ankle Sprain and Strain 07/30/2008 02/05/2015 Symptomatic Menopausal or Fe male Climacteric States 10/14/2014 Overview: perimenopausal DVT of Upper Extremity (Deep Vein Thrombosis) 10/14/2014 Overview: left upper arm after gallbladder surgery documented as of this encounter (statuses as of 04/16/2023) [facility] History of Past illness Narrative* Problem Noted Date Diagnosed Date Resolved Date Osteoporosis 10/09/2010 07/16/2012 Routine general medical exam ination at a health care facility 01/16/2010 07/16/2012 Overview: 01/16/2010, from Dr. Burgos Routine gynecological examination 01/16/2010 07/16/2012 Unspecified Site of Ankle Sprain and Strain 07/30/2008 02/05/2015 Symptomatic Menopausal or Fe male Climacteric States 10/14/2014 Overview: perimenopausal DVT of Upper Extremity (Deep Vein Thrombosis) 10/14/2014 Overview: left upper arm after gallbladder surgery documented as of this encounter (statuses as of 05/06/2023) [facility] History of Past illness Narrative* Problem Noted Date Diagnosed Date Resolved Date Osteoporosis 10/09/2010 07/16/2012 Routine general medical exam ination at a health care facility 01/16/2010 07/16/2012 Overview: 01/16/2010, from Dr. Burgos Routine gynecological examination 01/16/2010 07/16/2012 Unspecified Site of Ankle Sprain and Strain 07/30/2008 02/05/2015 Symptomatic Menopausal or Fe male Climacteric States 10/14/2014 Overview: perimenopausal DVT of Upper Extremity (Deep Vein Thrombosis) 10/14/2014 Overview: left upper arm after gallbladder surgery documented as of this encounter (statuses as of 05/07/2023) [facility] History of Past illness Narrative* Problem Noted Date Diagnosed Date Resolved Date Osteoporosis 10/09/2010 07/16/2012 Routine general medical exam ination at a health care facility 01/16/2010 07/16/2012 Overview: 01/16/2010, from Dr. Burgos Routine gynecological examination 01/16/2010 07/16/2012 Unspecified Site of Ankle Sprain and Strain 07/30/2008 02/05/2015 Symptomatic Menopausal or Fe male Climacteric States 10/14/2014 Overview: perimenopausal DVT of Upper Extremity (Deep Vein Thrombosis) 10/14/2014 Overview: left upper arm after gallbladder surgery documented as of this encounter (statuses as of 05/08/2023) [facility] History of Past illness Narrative* Problem Noted Date Diagnosed Date Resolved Date Osteoporosis 10/09/2010 07/16/2012 Routine general medical exam ination at a health care facility 01/16/2010 07/16/2012 Overview: 01/16/2010, from Dr. Burgos Routine gynecological examination 01/16/2010 07/16/2012 Unspecified Site of Ankle Sprain and Strain 07/30/2008 02/05/2015 Symptomatic Menopausal or Fe male Climacteric States 10/14/2014 Overview: perimenopausal DVT of Upper Extremity (Deep Vein Thrombosis) 10/14/2014 Overview: left upper arm after gallbladder surgery documented as of this encounter (statuses as of 05/08/2023) [facility] History of Past illness Narrative* Problem Noted Date Diagnosed Date Resolved Date Osteoporosis 10/09/2010 07/16/2012 Routine general medical exam ination at a health care facility 01/16/2010 07/16/2012 Overview: 01/16/2010, from Dr. Burgos Routine gynecological examination 01/16/2010 07/16/2012 Unspecified Site of Ankle Sprain and Strain 07/30/2008 02/05/2015 Symptomatic Menopausal or Fe male Climacteric States 10/14/2014 Overview: perimenopausal DVT of Upper Extremity (Deep Vein Thrombosis) 10/14/2014 Overview: left upper arm after gallbladder surgery documented as of this encounter (statuses as of 05/09/2023) [facility] History of Past illness Narrative* Problem Noted Date Diagnosed Date Resolved Date Osteoporosis 10/09/2010 07/16/2012 Routine general medical exam ination at a health care facility 01/16/2010 07/16/2012 Overview: 01/16/2010, from Dr. Burgos Routine gynecological examination 01/16/2010 07/16/2012 Unspecified Site of Ankle Sprain and Strain 07/30/2008 02/05/2015 Symptomatic Menopausal or Fe male Climacteric States 10/14/2014 Overview: perimenopausal DVT of Upper Extremity (Deep Vein Thrombosis) 10/14/2014 Overview: left upper arm after gallbladder surgery documented as of this encounter (statuses as of 05/14/2023) [facility] History of Past illness Narrative* Problem Noted Date Diagnosed Date Resolved Date Osteoporosis 10/09/2010 07/16/2012 Routine general medical exam ination at a health care facility 01/16/2010 07/16/2012 Overview: 01/16/2010, from Dr. Burgos Routine gynecological examination 01/16/2010 07/16/2012 Unspecified Site of Ankle Sprain and Strain 07/30/2008 02/05/2015 Symptomatic Menopausal or Fe male Climacteric States 10/14/2014 Overview: perimenopausal DVT of Upper Extremity (Deep Vein Thrombosis) 10/14/2014 Overview: left upper arm after gallbladder surgery documented as of this encounter (statuses as of 05/14/2023) [facility] History of Past illness Narrative* Problem Noted Date Diagnosed Date Resolved Date Osteoporosis 10/09/2010 07/16/2012 Routine general medical exam ination at a health care facility 01/16/2010 07/16/2012 Overview: 01/16/2010, from Dr. Burgos Routine gynecological examination 01/16/2010 07/16/2012 Unspecified Site of Ankle Sprain and Strain 07/30/2008 02/05/2015 Symptomatic Menopausal or Fe male Climacteric States 10/14/2014 Overview: perimenopausal DVT of Upper Extremity (Deep Vein Thrombosis) 10/14/2014 Overview: left upper arm after gallbladder surgery documented as of this encounter (statuses as of 07/18/2023) [facility] Diagnosis Factor V Leiden (HCC)- Primary Primary hypercoagulable state Anticoagulated on Coumadin Encounter for therapeutic drug monitoring [facility] Diagnosis Situational insomnia- Primary Transient disorder of initiating or maintaining sleep Factor V Leiden (HCC) Primary hypercoagulable state Anticoagulated on Coumadin Encounter for therapeutic drug monitoring Generalized anxiety disorder Fatigue, unspecified type Hair loss Alopecia, unspecified Anemia, unspecified type [facility] Diagnosis Generalized anxiety disorder [facility] Diagnosis Well adult exam- Primary Routine general medical examination at a health care facility [facility] Diagnosis Encounter for screening mammogram for breast cancer [facility] Diagnosis Factor V Leiden (HCC)- Primary Primary hypercoagulable state Screening for osteoporosis Special screening for osteoporosis Generalized anxiety disorder Situational insomnia Transient disorder of initiating or maintaining sleep Anticoagulated on Coumadin Encounter for therapeutic drug monitoring Dyslipidemia Other and unspecified hyperlipidemia [facility] Diagnosis Screening for osteoporosis Special screening for osteoporosis [facility] Diagnosis Encounter for screening mammogram for breast cancer [facility] Diagnosis Burning with urination- Primary Dysuria Acute low back pain without sciatica, unspecified back pain laterality Acute cystitis with hematuria Acute cystitis [facility] Diagnosis Edema of right lower leg Generalized anxiety disorder [facility] Diagnosis Generalized anxiety disorder- Primary Recurrent UTI (urinary tract infection) Urinary tract infection, site not specified Factor V Leiden (HCC) Primary hypercoagulable state Edema of right lower leg Anticoagulated on Coumadin Encounter for therapeutic drug monitoring Fatigue, unspecified type Iron deficiency Iron deficiency anemia, unspecified Varicose veins of bilateral lower extremities with other complications [facility] Diagnosis Elevated alkaline phosphatase level- Primary Other nonspecific abnormal serum enzyme levels Elevated serum creatinine Other nonspecific findings on examination of blood documented in this encounter [facility] note* Diagnosis Fatty liver- Primary Other chronic nonalcoholic liver disease documented in this encounter [facility] note* Diagnosis Fatigue, unspecified type Hair loss Alopecia, unspecified Anemia, unspecified type Generalized anxiety disorder documented in this encounter [facility] note* Diagnosis Fatigue, unspecified type Hair loss Alopecia, unspecified Anemia, unspecified type Generalized anxiety disorder Edema of right lower leg documented in this encounter [facility] note* Diagnosis Fatigue, unspecified type Hair loss Alopecia, unspecified Anemia, unspecified type Generalized anxiety disorder Edema of right lower leg documented in this encounter [facility] note* Diagnosis Obesity, Class III, BMI 40-49.9 (morbid obesity) (HCC)- Primary Morbid obesity Fatty liver Other chronic nonalcoholic liver disease Iron deficiency Iron deficiency anemia, unspecified Anticoagulated on Coumadin Encounter for therapeutic drug monitoring Dyslipidemia Other and unspecified hyperlipidemia documented in this encounter [facility] note* Diagnosis Situational insomnia Transient disorder of initiating or maintaining sleep documented in this encounter [facility] note* Diagnosis Irritant contact dermatitis, unspecified trigger- Primary Obesity, Class III, BMI 40-49.9 (morbid obesity) (HCC) Morbid obesity Gastroesophageal reflux disease without esophagitis Esophageal reflux Anticoagulated on Coumadin Encounter for therapeutic drug monitoring Elevated serum creatinine Other nonspecific findings on examination of blood documented in this encounter [facility] note* Diagnosis Encounter for screening mammogram for breast cancer documented in this encounter [facility] note* Diagnosis Elevated alkaline phosphatase level Other nonspecific abnormal serum enzyme levels documented in this encounter [facility] note* Diagnosis Obesity, Class III, BMI 40-49.9 (morbid obesity) (HCC)- Primary Morbid obesity Chronic pain of right knee Migraine, unspecified, without mention of intractable migraine without mention of status migrainosus documented in this encounter [facility] note* Diagnosis COVID-19- Primary documented in this encounter [facility] note* Diagnosis Subacute cough- Primary Cough documented in this encounter [facility] note* Diagnosis Subacute cough Cough documented in this encounter [facility] note* Diagnosis Obesity, Class III, BMI 40-49.9 (morbid obesity) (HCC)- Primary Morbid obesity Generalized anxiety disorder Anticoagulated on Coumadin Encounter for therapeutic drug monitoring documented in this encounter [facility] for referral (narrative)* Diagnostic Procedure Only (Routine) - Pending Review Specialty Diagnoses / Procedures Referred By Prabhu t Referred To Contact [facility] Diagnoses Encounter for screening mammogram for breast cancer Procedures TJ SCREENING SCREENING MAMMOGRAPHY BI 2-VIEW BREAST INC CAD Handy Hurst, DO [address] [place] [address] [facility] [address] [place] [address] Referral ID Status Reason Start Date Expiration Date Visits Requested Visits Authorized [id number] Pending Review Auto-Generat ed Referral 01/10/2022 02/09/2023 1 1 [facility] for referral (narrative)* Diagnostic Procedure Only (Routine) - Closed Specialty Diagnoses / Procedures Referred By Prabhu givens Referred To Contact [facility] Diagnoses Encounter for screening mammogram for breast cancer Procedures TJ SCREENING SCREENING MAMMOGRAPHY BI 2-VIEW BREAST INC CAD Handy Hurst DO [address] [place] [address] [facility] [address] [place] [address] Referral ID Status Reason Start Date Expiration Date V isits Requested Visits Authorized [id number] Closed Auto-Generate d Referral 01/10/2022 02/09/2023 1 1 [facility] for referral (narrative)* Diagnostic Procedure Only (Routine) - Closed Specialty Diagnoses / Procedures Referred By Prabhu t Referred To Contact [facility] Diagnoses Elevated alkaline phosphatase level Procedures US ABD RT UPPER QUADRANT US ABDOMINAL REAL TIME W/IMAGE LIMITED Handy Hurst, DO [address] [place] [address] [facility] Referral ID Status Reason Start Date Expiration Date V isits Requested Visits Authorized [id number] Closed Auto-Generate d Referral 06/27/2022 07/27/2023 1 1 [facility] for referral (narrative)* Diagnostic Procedure Only (Routine) - Pending Review Specialty Diagnoses / Procedures Referred By Contac t Referred To Contact [facility] Diagnoses Fatty liver Procedures US ELASTOGRAPHY LIVER ULTRASOUND ELASTOGRAPHY PARENCHYMA Handy Hurst DO [address] [place] [address] [facility] Referral ID Status Reason Start Date Expiration Date Visits Requested Visits Authorized [id number] Pending Review Auto-Generat ed Referral 07/04/2022 08/03/2023 1 1 * Diagnostic Procedure Only (Routine) - Pending Review Specialty Diagnoses / Procedures Referred By Contac t Referred To Contact [facility] Diagnoses Fatty liver Procedures US ABD RT UPPER QUADRANT US ABDOMINAL REAL TIME W/IMAGE LIMITED Handy Hurst DO [address] [place] [address] [facility] Referral ID Status Reason Start Date Expiration Date Visits Requested Visits Authorized [id number] Pending Review Auto-Generat ed Referral 07/04/2022 08/03/2023 1 1 [facility] for referral (narrative)* Diagnostic Procedure Only (Routine) - Pending Review Specialty Diagnoses / Procedures Referred By Contac t Referred To Contact [facility] Diagnoses Encounter for screening mammogram for breast cancer Procedures TJ SCREENING SCREENING MAMMOGRAPHY BI 2-VIEW BREAST INC CAD Handy Hurst DO [address] [place] [address] [facility] [address] [facility] [place] [address] Referral ID Status Reason Start Date Expiration Date Visits Requested Visits Authorized [id number] Pending Review Auto-Generat ed Referral 05/02/2024 1 1 [facility] for referral (narrative)* Diagnostic Procedure Only (Routine) - Closed Specialty Diagnoses / Procedures Referred By Contac t Referred To Contact [facility] Diagnoses Elevated alkaline phosphatase level Procedures US ABD RT UPPER QUADRANT US ABDOMINAL REAL TIME W/IMAGE LIMITED Handy Hurst, DO [address] [place] [address] [place] [address] Referral ID Status Reason Start Date Expiration Date V isits Requested Visits Authorized [id number] Closed Auto-Generate d Referral 06/27/2022 07/27/2023 1 1 [facility] for referral (narrative)* Diagnostic Procedure Only (Routine) - Closed Specialty Diagnoses / Procedures Referred By Contac t Referred To Contact XR IMAGING Diagnoses Chronic pain of right knee Procedures XR KNEE GENERAL 4V AP BOTH/PA BOTH/LAT/MERC RIGHT RADIOLOGIC EXAM KNEE COMPLETE 4/MORE VIEWS Shelly Huynh APRN.CNP [address] [place] [address] [place] [address] Referral ID Status Reason Start Date Expiration Date V isits Requested Visits Authorized [id number] Closed Auto-Generate d Referral 04/15/2023 05/14/2024 1 1 [facility] for visit Narrative* Diagnostic Procedure Only (Routine) - Closed Specialty Diagnoses / Procedures Referred By Contjanina t Referred To Contact BR IMAGING Diagnoses Encounter for screening mammogram for breast cancer Procedures TJ SCREENING SCREENING MAMMOGRAPHY BI 2-VIEW BREAST INC CAD Handy Hurst, DO [address] [place] [address] [facility] [address] [place] [address] Referral ID Status Reason Start Date Expiration Date V isits Requested Visits Authorized [id number] Closed Auto-Generate d Referral 01/10/2022 02/09/2023 1 1 [facility] Advance Directives No Advanced Directives Records FoundDocuments on File Type Date Recorded 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 Advance Directive(s) 12/03/2019 9:05 AM Advance Directive(s) 11/25/2019 3:21 PM Summary Purpose Family History No Family History Records Found Additional Source Comments Source Comments (unrecognize d section and content) In the event this informatio n is protected by the Federal Confidentiality of Alcohol and Drug Abuse Patient Records regulations: The Federal rules restrict any use of the information to criminally investigate or prosecute any alcohol or drug abuse patient.[facility] the event this information is protected by the Federal Confidentiality of Alcohol and Drug Abuse Patient Records regulations: The Federal rules restrict any use of the information to criminally investigate or prosecute any alcohol or drug abuse patient.[facility]In the event this information is protected by the Federal Confidentiality of Alcohol and Drug Abuse Patient Records regulations: The Federal rules restrict any use of the information to criminally investigate or prosecute any alcohol or drug abuse patient.[facility]In the event this information is protected by the Federal Confidentiality of Alcohol and Drug Abuse Patient Records regulations: The Federal rules restrict any use of the information to criminally investigate or prosecute any alcohol or drug abuse patient.[facility]In the event this information is protected by the Federal Confidentiality of Alcohol and Drug Abuse Patient Records regulations: The Federal rules restrict any use of the information to criminally investigate or prosecute any alcohol or drug abuse patient.[facility]In the event this information is protected by the Federal Confidentiality of Alcohol and Drug Abuse Patient Records regulations: The Federal rules restrict any use of the information to criminally investigate or prosecute any alcohol or drug abuse patient.[facility] HospitalIn the event this information is protected by the Federal Confidentiality of Alcohol and Drug Abuse Patient Records regulations: The Federal rules restrict any use of the information to criminally investigate or prosecute any alcohol or drug abuse patient.[facility]In the event this information is protected by the Federal Confidentiality of Alcohol and Drug Abuse Patient Records regulations: The Federal rules restrict any use of the information to criminally investigate or prosecute any alcohol or drug abuse patient.[facility]In the event this information is protected by the Federal Confidentiality of Alcohol and Drug Abuse Patient Records regulations: The Federal rules restrict any use of the information to criminally investigate or prosecute any alcohol or drug abuse patient.[facility]In the event this information is protected by the Federal Confidentiality of Alcohol and Drug Abuse Patient Records regulations: The Federal rules restrict any use of the information to criminally investigate or prosecute any alcohol or drug abuse patient.[facility] HospitalIn the event this information is protected by the Federal Confidentiality of Alcohol and Drug Abuse Patient Records regulations: The Federal rules restrict any use of the information to criminally investigate or prosecute any alcohol or drug abuse patient.[facility] HospitalIn the event this information is protected by the Federal Confidentiality of Alcohol and Drug Abuse Patient Records regulations: The Federal rules restrict any use of the information to criminally investigate or prosecute any alcohol or drug abuse patient.[facility]In the event this information is protected by the Federal Confidentiality of Alcohol and Drug Abuse Patient Records regulations: The Federal rules restrict any use of the information to criminally investigate or prosecute any alcohol or drug abuse patient.[facility] HospitalIn the event this information is protected by the Federal Confidentiality of Alcohol and Drug Abuse Patient Records regulations: The Federal rules restrict any use of the information to criminally investigate or prosecute any alcohol or drug abuse patient.[facility] HospitalIn the event this information is protected by the Federal Confidentiality of Alcohol and Drug Abuse Patient Records regulations: The Federal rules restrict any use of the information to criminally investigate or prosecute any alcohol or drug abuse patient.[facility] HospitalIn the event this information is protected by the Federal Confidentiality of Alcohol and Drug Abuse Patient Records regulations: The Federal rules restrict any use of the information to criminally investigate or prosecute any alcohol or drug abuse patient.[facility] HospitalIn the event this information is protected by the Federal Confidentiality of Alcohol and Drug Abuse Patient Records regulations: The Federal rules restrict any use of the information to criminally investigate or prosecute any alcohol or drug abuse patient.[facility] HospitalIn the event this information is protected by the Federal Confidentiality of Alcohol and Drug Abuse Patient Records regulations: The Federal rules restrict any use of the information to criminally investigate or prosecute any alcohol or drug abuse patient.[facility] HospitalIn the event this information is protected by the Federal Confidentiality of Alcohol and Drug Abuse Patient Records regulations: The Federal rules restrict any use of the information to criminally investigate or prosecute any alcohol or drug abuse patient.[facility] HospitalIn the event this information is protected by the Federal Confidentiality of Alcohol and Drug Abuse Patient Records regulations: The Federal rules restrict any use of the information to criminally investigate or prosecute any alcohol or drug abuse patient.[facility] HospitalIn the event this information is protected by the Federal Confidentiality of Alcohol and Drug Abuse Patient Records regulations: The Federal rules restrict any use of the information to criminally investigate or prosecute any alcohol or drug abuse patient.[facility] HospitalIn the event this information is protected by the Federal Confidentiality of Alcohol and Drug Abuse Patient Records regulations: The Federal rules restrict any use of the information to criminally investigate or prosecute any alcohol or drug abuse patient.[facility] HospitalIn the event this information is protected by the Federal Confidentiality of Alcohol and Drug Abuse Patient Records regulations: The Federal rules restrict any use of the information to criminally investigate or prosecute any alcohol or drug abuse patient.[facility] HospitalIn the event this information is protected by the Federal Confidentiality of Alcohol and Drug Abuse Patient Records regulations: The Federal rules restrict any use of the information to criminally investigate or prosecute any alcohol or drug abuse patient.[facility] HospitalIn the event this information is protected by the Federal Confidentiality of Alcohol and Drug Abuse Patient Records regulations: The Federal rules restrict any use of the information to criminally investigate or prosecute any alcohol or drug abuse patient.[facility] HospitalIn the event this information is protected by the Federal Confidentiality of Alcohol and Drug Abuse Patient Records regulations: The Federal rules restrict any use of the information to criminally investigate or prosecute any alcohol or drug abuse patient.[facility] HospitalIn the event this information is protected by the Federal Confidentiality of Alcohol and Drug Abuse Patient Records regulations: The Federal rules restrict any use of the information to criminally investigate or prosecute any alcohol or drug abuse patient.[facility] HospitalIn the event this information is protected by the Federal Confidentiality of Alcohol and Drug Abuse Patient Records regulations: The Federal rules restrict any use of the information to criminally investigate or prosecute any alcohol or drug abuse patient.[facility] HospitalIn the event this information is protected by the Federal Confidentiality of Alcohol and Drug Abuse Patient Records regulations: The Federal rules restrict any use of the information to criminally investigate or prosecute any alcohol or drug abuse patient.[facility] HospitalIn the event this information is protected by the Federal Confidentiality of Alcohol and Drug Abuse Patient Records regulations: The Federal rules restrict any use of the information to criminally investigate or prosecute any alcohol or drug abuse patient.[facility] HospitalIn the event this information is protected by the Federal Confidentiality of Alcohol and Drug Abuse Patient Records regulations: The Federal rules restrict any use of the information to criminally investigate or prosecute any alcohol or drug abuse patient.[facility] HospitalIn the event this information is protected by the Federal Confidentiality of Alcohol and Drug Abuse Patient Records regulations: The Federal rules restrict any use of the information to criminally investigate or prosecute any alcohol or drug abuse patient.[facility] HospitalIn the event this information is protected by the Federal Confidentiality of Alcohol and Drug Abuse Patient Records regulations: The Federal rules restrict any use of the information to criminally investigate or prosecute any alcohol or drug abuse patient.[facility] HospitalIn the event this information is protected by the Federal Confidentiality of Alcohol and Drug Abuse Patient Records regulations: The Federal rules restrict any use of the information to criminally investigate or prosecute any alcohol or drug abuse patient.[facility] HospitalIn the event this information is protected by the Federal Confidentiality of Alcohol and Drug Abuse Patient Records regulations: The Federal rules restrict any use of the information to criminally investigate or prosecute any alcohol or drug abuse patient.[facility] HospitalIn the event this information is protected by the [facility] [place] Confidentiality of Alcohol and Drug Abuse Patient Records regulations: The Federal rules restrict any use of the information to criminally investigate or prosecute any alcohol or drug abuse patient.[facility] HospitalIn the event this information is protected by the Federal Confidentiality of Alcohol and Drug Abuse Patient Records regulations: The Federal rules restrict any use of the information to criminally investigate or prosecute any alcohol or drug abuse patient.[facility] Care Teams (unrecognized sec tion and content) Chartered Accountant Relationship Specialty Start Date End Date Handy Hurst, DO [address] [place] [address] PCP - General Family Practice 07/16/12 Chartered Accountant Relationship Specialty Start Date End Date Handy Hurst, DO [address] [place] [address] PCP - General Family Practice 07/16/12 Chartered Accountant Relationship Specialty Start Date End Date Handy Hurst DO [address] [place] [address] PCP - General Family Practice 07/16/12 Chartered Accountant Relationship Specialty Start Date End Date Handy Hurst, DO [address] [place] [address] PCP - General Family Practice 07/16/12 Chartered Accountant Relationship Specialty Start Date End Date Handy Hurst, DO [address] [place] [address] PCP - General Family Practice 07/16/12 Chartered Accountant Relationship Specialty Start Date End Date Handy Hurst, DO [address] [place] [address] PCP - General Family Practice 07/16/12 Chartered Accountant Relationship Specialty Start Date End Date Handy Hurst, DO [address] [place] [address] PCP - General Family Medicine 07/16/12 Chartered Accountant Relationship Specialty Start Date End Date Handy Hurst, DO [address] [place] [address] PCP - General Family Medicine 07/16/12 Chartered Accountant Relationship Specialty Start Date End Date Handy Hurst, DO [address] [place] [address] PCP - General Family Medicine 07/16/12 Chartered Accountant Relationship Specialty Start Date End Date Handy Hurst, DO [address] [place] [address] PCP - General Family Medicine 07/16/12 Chartered Accountant Relationship Specialty Start Date End Date Handy Hurst, DO [address] [place] [address] PCP - General Family Medicine 07/16/12 Chartered Accountant Relationship Specialty Start Date End Date Handy Hurst, DO [address] [place] [address] PCP - General Family Medicine 07/16/12 Chartered Accountant Relationship Specialty Start Date End Date Handy Hurst, DO [address] [place] [address] PCP - General Family Medicine 07/16/12 Chartered Accountant Relationship Specialty Start Date End Date Handy Hurst, DO [address] [place] [address] PCP - General Family Medicine 07/16/12 Chartered Accountant Relationship Specialty Start Date End Date Handy Hurst, DO [address] [place] [address] PCP - General Family Medicine 07/16/12 Chartered Accountant Relationship Specialty Start Date End Date Handy Hurst, DO [address] [place] [address] PCP - General Family Medicine 07/16/12 Chartered Accountant Relationship Specialty Start Date End Date Handy Hurst, DO [address] [place] [address] PCP - General Family Medicine 07/16/12 Chartered Accountant Relationship Specialty Start Date End Date aHndy Hurst, DO [address] [place] [address] PCP - General Family Medicine 07/16/12 Chartered Accountant Relationship Specialty Start Date End Date Handy Hurst DO [address] [place] [address] PCP - General Family Medicine 07/16/12 Chartered Accountant Relationship Specialty Start Date End Date Handy Hurst DO [address] [place] [address] PCP - General Family Medicine 07/16/12 Chartered Accountant Relationship Specialty Start Date End Date Handy Hurst DO [address] [place] [address] PCP - General Family Medicine 07/16/12 Chartered Accountant Relationship Specialty Start Date End Date Handy Hurst DO [address] [facility] [place] [place] [address] PCP - General Family Medicine 07/16/12 Chartered Accountant Relationship Specialty Start Date End Date Handy Hurst DO [address] [place] [address] PCP - General Family Medicine 07/16/12 Chartered Accountant Relationship Specialty Start Date End Date Handy Hurst DO [address] [place] [address] PCP - General Family Medicine 07/16/12 Chartered Accountant Relationship Specialty Start Date End Date Handy Hurst, [address] [place] [address] PCP - General Family Medicine 07/16/12 Chartered Accountant Relationship Specialty Start Date End Date Handy Hurst DO [address] [place] [address] PCP - General Family Medicine 07/16/12 Chartered Accountant Relationship Specialty Start Date End Date Handy Hurst DO [address] [place] [address] PCP - General Family Medicine 07/16/12 Chartered Accountant Relationship Specialty Start Date End Date Handy Hurst DO [address] [place] [address] PCP - General Family Medicine 07/16/12 Chartered Accountant Relationship Specialty Start Date End Date Handy Hurst DO [address] [place] [address] PCP - General Family Medicine 07/16/12 Reason for Visit (unrecogniz ed section and content) Reason Comments Follow Up Reason Onset Date Comments Refill Request 10/25/2021 Reason Comments Follow Up 3 months Reason Comments UTI Burning and lower ba ck pain x 4 days Specialty Diagnoses / Procedures Referred By Contac t Referred To Contact FAMILY MEDICINE Diagnoses Possible UTI Procedures OFFICE CONSULTATION NEW/ESTAB PATIENT 15 MIN office consult Self Handy Hurst, DO [address] [place] [address] Referral ID Status Reason Start Date Expiration Date Visits Requested Visits Authorized [id number] Pending Review OON/Self Pay Override 2 11/24/2022 1 1 Reason Comments Refill Request Reason Comments F/U 3 Month Reason Comments Appointment Reason Comments Results Reason Onset Date Comments Refill Request Refill Request 08/17/2022 Reason Onset Date Comments Refill Request 08/17/2022 Reason Onset Date Comments Refill Request 2023 Reason Comments F/U 3 Month Itchy rash lower bolivar k Reason Comments Radiology US Specialty Diagnoses / Procedures Referred By Contac t Referred To Contact US IMAGING Diagnoses Elevated alkaline phosphatase level Procedures US ABD RT UPPER QUADRANT US ABDOMINAL REAL TIME W/IMAGE LIMITED Handy Hurst, DO [address] [place] [address] Us Imaging [facility] Referral ID Status Reason Start Date Expiration Date V isits Requested Visits Authorized [id number] Closed Auto-Generate d Referral 06/27/2022 07/27/2023 1 1 Reason Comments Medication Follow-up Adipex Reason Comments Head Congestion Reason Comments Covid Positive Specialty Diagnoses / Procedures Referred By Contac t Referred To Contact Diagnoses Possible Covid and all appts Procedures OFFICE/OUTPATIENT ESTABLISHED LOW MDM 20-29 MIN Handy Hurst, DO [address] [place] [address] [facility] [place] [address] Referral ID Status Reason Start Date Expiration Date Visits Requested Visits Authorized [id number] Authorized Patient Cleared - Qualified 100% FAS 3 08/06/2023 99 99 Reason Comments Medication Problem Reason Comments Medication Question Reason Comments patient update on COVID Specialty Diagnoses / Procedures Referred By Prabhu givens Referred To Contact Diagnoses Possible Covid and all appts Procedures OFFICE/OUTPATIENT ESTABLISHED LOW MDM 20-29 MIN Handy Hurst, DO [address] [place] [address] [place] [address] INFORMATION SOURCE (unrecogn ized section and content) FOR RECORDS PERTAINING TO PATIENTS WHO ARE OR HAVE BEEN ENROLLED IN A CHEMICAL DEPENDENCY/SUBSTANCEABUSE PROGRAM, SOME INFORMATION MAY BE OMITTED. This clinical summary was aggregated from multiple sources. Caution should be exercised in using it in the provision of clinical care. This summary normalizes information from multiple sources, and as a consequence, information in this document may materially change the coding, format and clinical context of patient data. In addition, data may be omitted in some cases. CLINICAL DECISIONS SHOULD BE BASED ON THE PRIMARY CLINICAL RECORDS. [employer] provides no warranty or guarantee of the accuracy or completeness of information in this document.
[2023-08-01 00:19] VITALS: PULSE 89; RESP 18
[2023-08-01] MEDS: Albuterol 2.5 MG/3 ML VIAL.NEB. INHALATION (00:19)
[2023-08-01] MEDS: Benzonatate 100 MG Capsule 200 MG PO (00:19)
[2023-08-01] MEDS: 0.9% Normal Saline (1000mL) 1,000 ML 999 ML IV (00:19)
[2023-08-01] MEDS: Ondansetron 4 MG/2 ML Vial IV (00:19)
[2023-08-01 00:21] VITALS: BMI 48.6
[2023-08-01] MEDS: dexAMETHasone 10 MG/ML Vial IV (00:36)
[2023-08-01] MEDS: Ketorolac 30 MG/ML Syringe IV (00:36)
[2023-08-01 01:35] VITALS: BP 120/63; PULSE 78; RESP 18; TEMP 36.9; O2SAT 93
--- NOTE | 2023-08-01 01:53 | EDS_ITS ---
HPI History of Present Illness Chief Complaint: Cough Informant: patient Narrative Narrative: Patient is a 53-year-old female with past medical history of factor V Leiden deficiency currently on Coumadin. She states that her boyfriend has been sick recently and on Saturday she began with generalized muscle aches with fatigue headache congestion cough and nausea vomiting diarrhea. She states that despite giving it a few days to improve she feels like she is worsened and secondary to this comes in for evaluation [facility] Medical History Abnormal Pap smear of cervix Anxiety Chest pain Factor V deficiency Migraine SOB (shortness of breath) Home Medications warfarin 4 mg tablet 4 mg PO MO Saturday10/01/17 [History Last Taken Unknown] warfarin 6 mg tablet 6 mg PO SUTUWETHSA 10/01/17 [History Last Taken Unknown] fluoxetine 20 mg capsule 50 mg PO DAILY 09/05/20 [History Last Taken Unknown] ondansetron 4 mg disintegrating tablet 4 mg PO Q8H PRN PRN Nausea #10 tabs 03/02/21 [Rx Last Taken Unknown] propranolol 20 mg tablet 40 mg PO DAILY 03/02/21 [History Last Taken Unknown] azithromycin 250 mg tablet See Rx Instructions PO .COMPLEX #6 tabs 05/04/23 [Rx Last Taken Unknown] benzonatate 100 mg capsule 100 mg PO TID PRN cough #21 caps 05/04/23 [Rx Last Taken Unknown] albuterol sulfate 90 mcg/actuation aerosol inhaler (Ventolin HFA) 2 puff inhalation Q4H PRN PRN Wheezing/SOB #1 device 08/01/23 [Rx Last Taken Unknown] codeine 10 mg-guaifenesin 100 mg/5 mL oral liquid 5 ml PO 4X/DAY PRN PRN cough 7 days #140 mL 08/01/23 [Rx Last Taken Unknown] ondansetron 4 mg disintegrating tablet 4 mg PO TID PRN nausea and vomiting #21 tabs 08/01/23 [Rx Last Taken Unknown] Allergy/AdvReac Type Severity Reaction Status Date / Time codeine AdvReac Vomiting Verified 07/31/23 23:05 hydrocodone bitartrate AdvReac Pain in Verified 07/31/23 23:05 [From Vicodin] joints Family History Father Diabetes Congestive heart failure Asthma Mother Congestive heart failure Surgical History delivery delivered History of cholecystectomy Social History household members: none Smoking Status: Never smoker alcohol intake: never substance use type: does not use caffeine: Yes what type of physical activity do you participate in: walking seatbelt use: always do you feel safe at home: Yes additional social history: - [employer] ROS ROS ED Constitutional Constitutional ED: Reports chills and fever(s) Eyes Eyes: Denies change in vision ENT ENT ED: Reports rhinorrhea and sore throat Cardiovascular Cardiovascular: Denies chest pain Respiratory/Chest Respiratory/Chest: Reports cough and dyspnea Gastrointestinal Gastrointestinal: Reports abdominal pain, diarrhea, nausea and vomiting Genitourinary Genitourinary ED: Denies dysuria Musculoskeletal Musculoskeletal: Reports myalgias Integumentary Denies rash Neurologic Neurologic: Reports headache(s) Hematologic/Lymphatic Hematologic/Lymphatic: Reports easy bleeding and easy bruising EXAM Physical Exam Const Vital Signs: 07/31/23 23:05 07/31/23 23:49 08/01/23 00:19 Temperature 98.1 F Temperature Source Temporal Pulse Rate 87 89 Respiratory Rate 24 H 18 Respiratory Effort Normal Non-Labored Blood Pressure 104/70 Blood Pressure Mean 81 Pulse Ox 97 Oxygen Delivery Method Room Air Room Air 08/01/23 01:35 Temperature 98.5 F Temperature Source Pulse Rate 78 Respiratory Rate 18 Respiratory Effort Blood Pressure 120/63 Blood Pressure Mean 82 Pulse Ox 93 Oxygen Delivery Method Positive well nourished, well developed and obese General Appearance ED: well developed; Negative for pallor Nutritional Appearance: obese HEENT HEENT Narrative: Bilateral TMs are retracted but show no secondary changes to suggest infection Nasal mucosa is hyperemic and boggy Posterior pharynx displays cobblestoning consistent with sinus drainage without airway edema or compromise Mucous membranes are dry and tacky Eyes PERRL and EOMs intact bilaterally General Eye ED: Negative for scleral icterus Neck supple Neck Narrative: No nuchal rigidity or meningeal signs noted Chest Wall palpation of chest normal Resp Resp Narrative: Breath sounds are diminished throughout with diffuse expiratory wheeze and rhonchi in the bilateral bases but no nasal flaring or retractions noted. There is mild tachypnea present upon evaluation Cardio regular rate and regular rhythm Rate: other Other Details: Radial and carotid pulses are equal and symmetric GI non-tender and non-distended GI Narrative: Abdomen is soft nontender nondistended with hyperactive bowel sounds. No voluntary guarding or rigidity or pulsatile mass Auscultation: hyperactive bowel sounds Palpation: soft Extremity normal to inspection Extremity Narrative: No asymmetric edema no pitting edema negative Homans' sign bilaterally Neuro oriented x3, CN's II-XII intact bilaterally and no sensory deficits noted Sensorium / Orientation: alert Motor Exam: strength 5/5 throughout Psych mental status grossly normal Skin no rashes or lesions noted Skin Narrative: Skin turgor is increased General Skin Exam: Negative for jaundice or pallor MDM MDM MDM Narrative Medical decision making narrative: Patient presented to the ER with mild tachypnea but otherwise stable vitals. Constellation of symptoms is most consistent with influenza versus COVID versus RSV but there is also concern for potential pneumonia. Secondary to this viral swabs were obtained and a chest x-ray was ordered. Chest x-ray questioned viral infection versus bibasilar airspace disease. However as the patient is influenza positive this would be viral in nature and there is no need for antibiotics. After patient was treated with Toradol Decadron albuterol normal saline and Tessalon Perles she improvement of symptoms and her breath sounds improved as well as her work of breathing. Therefore at this time as history and exam is consistent with influenza and patient's test swab confirms this but she is not in respiratory distress or requiring supplemental oxygen she is otherwise safe for discharge History & Record Review Discussion w/independent historian: Patient Radiography Diagnostic Testing: Clinical Impression(s) from Imaging Studies Chest X-Ray 08/01/23 00:00 IMPRESSION: 1. Findings suggest acute exacerbation of reactive airway disease and/or viral infection. 2. Bilateral basilar airspace disease may represent multifocal pneumonia. 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 Instructions: Dehydration, ED Influenza (Adult) Prescriptions: New ondansetron 4 mg tablet,disintegrating 4 mg PO TID PRN (Reason: nausea and vomiting) Qty: 21 0RF albuterol sulfate [Ventolin HFA] 90 mcg/actuation HFA aerosol inhaler 2 puff inhalation Q4H PRN PRN (Reason: Wheezing/SOB) Qty: 1 0RF codeine-guaifenesin 10-100 mg/5 mL liquid 5 ml PO 4X/DAY PRN PRN (Reason: cough) 7 Days Qty: 140 0RF No Action warfarin 4 mg tablet 4 mg PO MO warfarin 6 mg tablet 6 mg PO SUTUWETHFRSA azithromycin 250 mg tablet See Rx Instructions PO .COMPLEX Qty: 6 0RF Rx Instructions: For 250 mg dose pack: take 500 mg today (day 1), then 250 mg for 4 days (days 2-5) PO benzonatate 100 mg capsule 100 mg PO TID PRN (Reason: cough) Qty: 21 0RF fluoxetine 20 MG capsule 50 mg PO DAILY propranolol 20 mg Tablet 40 mg PO DAILY ondansetron [ondansetron] 4 MG tablet 4 mg PO Q8H PRN PRN (Reason: Nausea) Qty: 10 0RF Primary Care Provider: Handy Mike Referrals: Handy Mike DO [Primary Care Provider] - Activity Restrictions/Additional Instructions: You have influenza A which is a viral infection that we will take roughly 5 to 10 days to resolve. Stay well-hydrated and take the prescribed medications as directed to help control symptoms. If you have any further concerns please return to the ER for repeat evaluation Disposition Disposition: Home, Self Care Discharge Date/Time: 08/01/23 02:31
== END 2023-08-01 02:31 | disposition home or self-care (01) ==
PROVIDERS: Emergency Provider Emergency Medicine; PCP Student in an Organized Health Care Education/Training Program; Visit Provider Emergency Medicine
DX: J10.1 Influenza due to other identified influenza virus with other respiratory manifestations (principal); D68.2 Hereditary deficiency of other clotting factors; E86.0 Dehydration; R19.7 Diarrhea, unspecified; R11.2 Nausea with vomiting, unspecified; Z79.01 Long term (current) use of anticoagulants; Z79.899 Other long term (current) drug therapy
CPT/HCPCS: 71046; 87631; 94640; 96361; 96374; 96375; 99283; J2405

== ENCOUNTER 2023-08-08 14:34 | Inpatient (IN) | payer MEDICAID, SELFPAY ==
[2023-08-08] VITALS (11 sets, daily range): BP systolic 103–126; BP diastolic 51–63; PULSE 73–86; RESP 18–22; TEMP 36.6–36.9; O2SAT 87–96; BMI 47.0
--- NOTE | 2023-08-08 15:15 | CT_ITS ---
EXAM: CT ANGIOGRAPHY CHEST WITHOUT AND WITH INTRAVENOUS CONTRAST CLINICAL INDICATION: shortness of breath TECHNIQUE: Helically acquired angiography images were obtained of the chest without and with intravenous contrast. This CT exam was performed using one or more of the following dose reduction techniques: automated exposure control, adjustment of the mA and/or kV according to patient size, and/or use of iterative reconstruction technique. MIP reconstructed images were created and reviewed. CONTRAST: IV 100mL [id number] COMPARISON: No relevant prior studies available. FINDINGS: PULMONARY ARTERIES: Unremarkable. Normal in caliber. No evidence of pulmonary embolism. AORTA: Unremarkable. Normal in caliber. No evidence of dissection. GREAT VESSELS OF AORTIC ARCH: Unremarkable. Normal in caliber. No evidence of dissection. LUNGS AND PLEURAL SPACES: There are diffuse patchy areas of consolidation and groundglass opacities throughout both lungs greatest in the lung bases which may represent developing bilateral pneumonia. There are no effusions identified. No mass. HEART: Unremarkable. Heart size is normal. No pericardial effusion. No significant coronary artery calcifications. MEDIASTINUM: Unremarkable. No mediastinal or hilar adenopathy. Esophagus is unremarkable. No hiatal hernia. THYROID: Unremarkable. No thyroid lesions. BONES/JOINTS: Unremarkable. No suspicious lytic or blastic abnormality. CT/CTA Chest W/WO Contrast IMPRESSION: 1. No evidence of pulmonary embolus. 2. Diffuse patchy bilateral airspace disease and groundglass opacities which may represent developing bilateral pneumonia. Electronically Signed: Carlos Diaz MD at 16:24 EST ,
--- NOTE | 2023-08-08 15:15 | EKG12_ITS ---
Test Reason : DYSRHYTHMIA Blood Pressure : / mmHG Vent. Rate : 078 BPM Atrial Rate : 078 BPM P-R Int : 116 ms QRS Dur : 076 ms QT Int : 436 ms P-R-T Axes : 022 039 068 degrees QTc Int : 497 ms Poor data quality, interpretation may be adversely affected Normal sinus rhythm ST & T wave abnormality, consider anterior ischemia Abnormal ECG Confirmed by ALISON CAICEDO, AZAEL ([id number]), digital editor VERONICA LIN ([id number]) on 08/12/2023 9:18:42 AM Referred By: KERRIE Confirmed By:DOTTIE ROSAS MD
--- NOTE | 2023-08-08 15:24 | EX.ED.DYSGE1 ---
HPI <ROSARIO Miranda - Last Filed: 08/08/23 20:54> History of Present Illness Chief Complaint: Shortness of Breath Narrative Narrative: Patient presenting today due to shortness of breath that has progressively worsened over the past few days. She feels short of breath both at rest and with exertion. 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 She reports that she has been very noncompliant with her medications including Lasix over the past 2 weeks due to currently being sick with influenza A and having nausea. She has had more swelling in her bilateral lower extremities now that she is not taking Lasix. She reports that she does have pain to her bilateral rib cage when she takes a deep breath or coughs. She saw her PCP this morning who encouraged her to come to the ED to rule out a PE. Her pulse ox while there was 89% on room air. She denies fevers, chills, chest pain, and abdominal pain. [facility] <ROSARIO Miranda - Last Filed: 08/08/23 20:54> [facility] Medical History Abnormal Pap smear of cervix Anxiety Chest pain Factor V deficiency Migraine SOB (shortness of breath) Home Medications warfarin 4 mg tablet 4 mg PO Saturday10/01/17 [History Last Taken Unknown] warfarin 6 mg tablet 6 mg PO SUTUWETHFRSA 10/01/17 [History Last Taken Unknown] fluoxetine 20 mg capsule 50 mg PO DAILY 09/05/20 [History Last Taken Unknown] ondansetron 4 mg disintegrating tablet 4 mg PO Q8H PRN PRN Nausea #10 tabs 03/02/21 [Rx Last Taken Unknown] propranolol 20 mg tablet 40 mg PO DAILY 03/02/21 [History Last Taken Unknown] azithromycin 250 mg tablet See Rx Instructions PO .COMPLEX #6 tabs 05/04/23 [Rx Last Taken Unknown] benzonatate 100 mg capsule 100 mg PO TID PRN cough #21 caps 05/04/23 [Rx Last Taken Unknown] albuterol sulfate 90 mcg/actuation aerosol inhaler (Ventolin HFA) 2 puff inhalation Q4H PRN PRN Wheezing/SOB #1 device 08/01/23 [Rx Last Taken Unknown] codeine 10 mg-guaifenesin 100 mg/5 mL oral liquid 5 ml PO 4X/DAY PRN PRN cough 7 days #140 mL 08/01/23 [Rx Last Taken Unknown] ondansetron 4 mg disintegrating tablet 4 mg PO TID PRN nausea and vomiting #21 tabs 08/01/23 [Rx Last Taken Unknown] Allergy/AdvReac Type Severity Reaction Status Date / Time codeine AdvReac Vomiting Verified 08/08/23 14:36 hydrocodone bitartrate AdvReac Pain in Verified 08/08/23 14:36 [From Vicodin] joints Family History Father Diabetes Congestive heart failure Asthma Mother Congestive heart failure Surgical History delivery delivered History of cholecystectomy Social History household members: none Smoking Status: Never smoker alcohol intake: never substance use type: does not use caffeine: Yes what type of physical activity do you participate in: walking seatbelt use: always do you feel safe at home: Yes additional social history: - [employer] ROS <ROSARIO Miranda - Last Filed: 08/08/23 20:54> ROS ED Constitutional Constitutional ED: Denies chills or fever(s) Cardiovascular Cardiovascular: Denies chest pain Respiratory/Chest Respiratory/Chest: Reports cough, dyspnea and dyspnea on exertion Gastrointestinal Gastrointestinal: Denies abdominal pain, nausea or vomiting Musculoskeletal Musculoskeletal: Denies arthralgias or myalgias Integumentary Denies rash Neurologic Neurologic: Denies weakness EXAM <ROSARIO Miranda - Last Filed: 08/08/23 20:54> Physical Exam Const Vital Signs: 08/08/23 14:36 08/08/23 16:26 08/08/23 16:27 Temperature 98.5 F Temperature Source Temporal Pulse Rate 86 73 Respiratory Rate 20 H 22 H Respiratory Effort Blood Pressure 118/59 L 126/63 H Blood Pressure Mean 78 84 Pulse Ox 91 94 92 Oxygen Delivery Method Room Air Room Air Room Air 08/08/23 16:29 08/08/23 16:56 08/08/23 17:45 Temperature 98 F Temperature Source Pulse Rate 78 Respiratory Rate 20 H Respiratory Effort Non-Labored Short of Breath Blood Pressure 121/62 H Blood Pressure Mean 81 Pulse Ox 93 92 Oxygen Delivery Method Room Air Room Air Positive well nourished, well developed and no apparent distress General Appearance ED: well developed HEENT Reports normocephalic and head/scalp atraumatic Mouth ED: Yes moist mucous membranes normal Eyes PERRL and EOMs intact bilaterally Neck full ROM and supple Chest Wall inspection of chest normal Resp normal respiratory effort Resp Narrative: Diffuse crackles in bilateral lung mao. Cardio regular rate and regular rhythm GI soft to palpation, non-tender, non-distended and no masses Back/Spine normal ROM and normal to inspection Extremity full ROM Extremity Narrative: 1+ pitting edema to the bilateral lower extremities. Neuro oriented x3, CN's II-XII intact bilaterally, moves all extremities, no focal motor deficits and no sensory deficits noted Sensorium / Orientation: awake and alert Psych mental status grossly normal and thought process normal Skin no rashes or lesions noted and no wounds <Dr. David Mo DO - Last Filed: 08/08/23 21:01> Physical Exam Const Vital Signs: 08/08/23 14:36 08/08/23 16:26 08/08/23 16:27 Temperature 98.5 F Temperature Source Temporal Pulse Rate 86 73 Respiratory Rate 20 H 22 H Respiratory Effort Blood Pressure 118/59 L 126/63 H Blood Pressure Mean 78 84 Pulse Ox 91 94 92 Oxygen Delivery Method Room Air Room Air Room Air 08/08/23 16:29 08/08/23 16:56 08/08/23 17:45 Temperature 98 F Temperature Source Pulse Rate 78 Respiratory Rate 20 H Respiratory Effort Non-Labored Short of Breath Blood Pressure 121/62 H Blood Pressure Mean 81 Pulse Ox 93 92 Oxygen Delivery Method Room Air Room Air MDM <ROSARIO Miranda - Last Filed: 08/08/23 20:54> [facility] MDM Narrative Medical decision making narrative: Patient is nontoxic and in no acute distress, she is presenting due to cough and shortness of breath. She has had a cough for about 2 weeks, recently diagnosed with influenza A. The shortness of breath started a few days ago. History of DVT and factor V Leyden. Has not been taking her Coumadin or Lasix for 2 weeks. She was hypoxic at her PCPs office at 89% and they were concerned for PE. Given her history of blood clots, CTA will be obtained to rule out PE. Cardiac labs will be obtained including a BNP. Labs overall unremarkable. CTA shows groundglass opacities and possible bilateral pneumonia. There is no PE. She was ambulated and her pulse ox dropped to 84% on room air. Given she is hypoxic, I do think she would benefit from admission to the hospital. She will be given Rocephin and azithromycin. I did speak with the hospitalist, Dr. Trujillo who recommends discontinuing the azithromycin as he is going to change the antibiotics on the floor. He recommended obtaining a COVID and respiratory panel. She will be admitted in stable condition and is comfortable with plan. This patient was seen with a PA/INDUSTRIAL ENGINEERING ANALYST Individually assessed they patient including history and physical. I have reviewed everything on the chart that is available and agree with the documentation provided by the PA/INDUSTRIAL ENGINEERING ANALYST including discussion about the assessment, treatment plan, discussion, and return precautions. Patient presenting with continued cough, shortness of breath after having influenza. She states she sort of felt better and then got worse again. She does still have a cough but is not having fevers that she knows of. She does not have a thermometer. Differential includes postviral pneumonia, viral pneumonitis, dehydration, anemia, electrolyte normalities, bronchitis, acute coronary syndrome because she is having some chest pain. CHF because she is having slow short edema. She does state that she is chronically on Lasix for lower extremity edema but is not related to heart failure. Her legs have swollen recently but this because she has not been taking her medications. PE is also in the differential as she has not been taking her Coumadin and she has factor V Leiden. Will obtain a CTA of the chest to rule out PE. Lab work ultimately is reassuring with a CBC that shows white blood cell count of 4.8, hemoglobin 11.7, platelets 237 INR nearly therapeutic at 1.6. Creatinine slightly elevated 1.04. GFR 58. High-sensitivity troponin is 10. BNP 59.7. CTA of the chest shows bilateral pneumonia. Patient ambulated in the hallway without oxygen and desats to 84% therefore she will need to be admitted. Patient given Rocephin azithromycin. Lab Data Attestation: I reviewed the patient's lab results. Lab results narrative: H&H 11.7 and 35.2, creatinine 1.04, BNP WNL Labs: Laboratory Results - last 24 hr 08/08/23 15:50 WBC 4.8 RBC 3.76 L Hgb 11.7 L Hct 35.2 L MCV 93.6 MCH 31.1 MCHC 33.2 RDW Std Deviation 43.6 RDW Coeff of Delmy 12.9 Plt Count 237 MPV 8.4 Immature Gran % (Auto) 1.400 H Neut % (Auto) 63.3 Lymph % (Auto) 24.6 [place] % (Auto) 8.9 Eos % (Auto) 1.4 Baso % (Auto) 0.4 Absolute Neuts (auto) 3.1 Absolute Lymphs (auto) 1.19 Nucleated RBC % 0 PT 18.7 H INR 1.6 Sodium 139 Potassium 3.5 Chloride 102 Carbon Dioxide 32.0 Anion Gap 5 BUN 15 Creatinine 1.04 H Estim Creat Clear Calc 76.78 Est GFR (MDRD) Af Amer 71 Est GFR (MDRD) Non-Af 58 L BUN/Creatinine Ratio 14.4 Glucose 96 Calcium 8.5 Troponin I High Sens 10 B-Natriuretic Peptide 59.7 Radiography Diagnostic Testing: Clinical Impression(s) from Imaging Studies Chest CTA 08/08/23 15:15 IMPRESSION: 1. No evidence of pulmonary embolus. 2. Diffuse patchy bilateral airspace disease and groundglass opacities which may represent developing bilateral pneumonia. Electronically Signed: Carlos Diaz MD at 16:24 EST Reading Location ID and State: [facility] / [place] Tel , Service support , EKG Initial EKG: Comments: 78 bpm, normal sinus rhythm, no ST elevation, reviewed and interpreted by attending ED physician <Dr. David Mo, DO - Last Filed: 08/08/23 21:01> [facility] Narrative Medical decision making narrative: Patient is nontoxic and in no acute distress, she is presenting due to cough and shortness of breath. She has had a cough for about 2 weeks, recently diagnosed with influenza A. The shortness of breath started a few days ago. History of DVT and factor V Leyden. Has not been taking her Coumadin or Lasix for 2 weeks. She was hypoxic at her PCPs office at 89% and they were concerned for PE. Given her history of blood clots, CTA will be obtained to rule out PE. Cardiac labs will be obtained including a BNP. Labs overall unremarkable. CTA shows groundglass opacities and possible bilateral pneumonia. There is no PE. She was ambulated and her pulse ox dropped to 84% on room air. Given she is hypoxic, I do think she would benefit from admission to the hospital. She will be given Rocephin and azithromycin. I did speak with the hospitalist, Dr. Trujillo who recommends discontinuing the azithromycin as he is going to change the antibiotics on the floor. He recommended obtaining a COVID and respiratory panel. She will be admitted in stable condition and is comfortable with plan. This patient was seen with a PA/INDUSTRIAL ENGINEERING ANALYST Individually assessed they patient including history and physical. I have reviewed everything on the chart that is available and agree with the documentation provided by the PA/INDUSTRIAL ENGINEERING ANALYST including discussion about the assessment, treatment plan, discussion, and return precautions. Patient presenting with continued cough, shortness of breath after having influenza. She states she sort of felt better and then got worse again. She does still have a cough but is not having fevers that she knows of. She does not have a thermometer. Differential includes postviral pneumonia, viral pneumonitis, dehydration, anemia, electrolyte normalities, bronchitis, acute coronary syndrome because she is having some chest pain. CHF because she is having slow short edema. She does state that she is chronically on Lasix for lower extremity edema but is not related to heart failure. Her legs have swollen recently but this because she has not been taking her medications. PE is also in the differential as she has not been taking her Coumadin and she has factor V Leiden. Will obtain a CTA of the chest to rule out PE. Lab work ultimately is reassuring with a CBC that shows white blood cell count of 4.8, hemoglobin 11.7, platelets 237 INR nearly therapeutic at 1.6. Creatinine slightly elevated 1.04. GFR 58. High-sensitivity troponin is 10. BNP 59.7. CTA of the chest shows bilateral pneumonia. Patient ambulated in the hallway without oxygen and desats to 84% therefore she will need to be admitted. Patient will be treated with antibiotics. Rapid COVID was requested by hospitalist and is negative. Impression: 1. Hypoxic respiratory failure 2. Bilateral pneumonia 3. History of influenza a Lab Data Labs: Laboratory Results - last 24 hr 08/08/23 15:50 WBC 4.8 RBC 3.76 L Hgb 11.7 L Hct 35.2 L MCV 93.6 MCH 31.1 MCHC 33.2 RDW Std Deviation 43.6 RDW Coeff of Delmy 12.9 Plt Count 237 MPV 8.4 Immature Gran % (Auto) 1.400 H Neut % (Auto) 63.3 Lymph % (Auto) 24.6 [place] % (Auto) 8.9 Eos % (Auto) 1.4 Baso % (Auto) 0.4 Absolute Neuts (auto) 3.1 Absolute Lymphs (auto) 1.19 Nucleated RBC % 0 PT 18.7 H INR 1.6 Sodium 139 Potassium 3.5 Chloride 102 Carbon Dioxide 32.0 Anion Gap 5 BUN 15 Creatinine 1.04 H Estim Creat Clear Calc 76.78 Est GFR (MDRD) Af Amer 71 Est GFR (MDRD) Non-Af 58 L BUN/Creatinine Ratio 14.4 Glucose 96 Calcium 8.5 Troponin I High Sens 10 B-Natriuretic Peptide 59.7 Radiography Diagnostic Testing: Clinical Impression(s) from Imaging Studies Chest CTA 08/08/23 15:15 IMPRESSION: 1. No evidence of pulmonary embolus. 2. Diffuse patchy bilateral airspace disease and groundglass opacities which may represent developing bilateral pneumonia. Electronically Signed: Calros Diaz MD at 16:24 EST , Discharge Plan Dx/Rx/DC Orders Clinical Impression: Influenza A, Hypoxia, Pneumonia, Shortness of breath, Edema of both lower extremities, Factor V Leiden Disposition Disposition: Acute Care [facility] Discharge Date/Time: 08/08/23 20:43
[2023-08-08 16:05] LABS: Absolute Lymphocyte Count 1.19 X10^3/uL (0.83-4.51); Absolute Neutrophil Count 3.1 X10^3/uL (2.0-7.7); Basophil# 0.02 X10^3/uL; Basophil% 0.4 % (0-1); Eosinophil# 0.07 X10^3/uL; Eosinophils% 1.4 % (0-5); Hematocrit 35.2 % (37-47); Hemoglobin 11.7 g/dL (12.0-15.0); Lymphocyte # 1.19 X10^3/ul (0.83-4.51); Lymphocyte % 24.6 % (19-41); Mean Corp Hgb Conc 33.2 g/dL (32-36); Mean Corpuscular Hgb 31.1 pg (27.0-32.0); Mean Corpuscular Volume 93.6 fL (81-99); Mean Platelet Vol. 8.4 fl (6.2-12.0); Monocyte# 0.43 X10^3/uL; Monocyte% 8.9 % (0-10); NRBC Flagged by Analyzer 0 % (0-5); Neutrophil # 3.06 X10^3/uL (2.7-7.7); Neutrophil % 63.3 % (47-70); Platelet Count 237 K/mm3 (150-450); RBC Distribution Width CV 12.9 % (11.6-14.6); RBC Distribution Width SD 43.6 fl (35.1-43.9); Red Blood Count 3.76 M/mm3 (4.2-5.4); White Blood Count 4.8 K/mm3 (4.4-11.0)
[2023-08-08 16:19] LABS: Anion Gap 5 (5-15); BUN 15 mg/dL (7-18); BUN/Creat Ratio 14.4 RATIO (10-20); Calcium,Total 8.5 mg/dL (8.5-10.1); Chloride 102 mmol/L (98-107); Creatinine, Serum 1.04 mg/dL (0.55-1.02); EST Glomerular Filtration Rate 58 mL/min (>60); Est Glom Filt Rate - Afr Amer 71 mL/min (>60); Estimated Creatinine Clearance 76.78 ml/min; Glucose 96 mg/dL (74-106); Potassium 3.5 mmol/L (3.5-5.1); Sodium Level 139 mmol/L (136-145); Troponin-I HS 10 pg/mL (3.0-54.0)
[2023-08-08 16:25] LABS: BNP,B-Type NATRIURETIC PEPTIDE 59.7 pg/mL (0-100)
[2023-08-08 16:32] LABS: International Normalized Ratio 1.6; Prothrombin Time (Protime)PT. 18.7 SECONDS (11.7-14.9)
[2023-08-08] MEDS: 0.9% Normal Saline (1000mL) 1,000 ML 999 ML IV (17:38)
[2023-08-08] MEDS: Ceftriaxone 1 GM/50 ML BAG IV (17:38)
--- NOTE | 2023-08-08 20:03 | PCM.HP.STD ---
HPI - General General Date of Admission: 08/08/23 Date of Service: 08/08/23 Chief Complaint: Shortness of breath, leg edema, low pulse ox HPI Narrative EDUARDO LOZANO, is a 53 F who presents to the emergency room at [facility] after being sent in from her PCPs office due to a low pulse ox of 89% on room air. Patient had been complaining of some shortness of breath, she had influenza proximately 10 to 14 days ago. Patient denies any pulmonary issues. Patient takes Lasix usually for lower extremity edema and she states she has been sick and not able to take some oral medications such as Lasix and Coumadin. 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 Patient denied any productive cough, she denied any chills or fever. Patient complained of a dry cough. Workup in the emergency room included a CBC which showed a normal white blood cell count, hemoglobin was 11.7, patient's chemistry profile was remarkable for creatinine of 1.04, and a CTA of the chest was performed which showed no evidence of pulmonary embolus, there were diffuse patchy bilateral airspace disease and groundglass opacities concerning for pneumonia. Patient's pulse ox on room air was 94%, on ambulation her pulse ox dropped to 84%. At the time of this dictation, patient's COVID antigen, RSV antigen, and respiratory panel are pending. Patient will be admitted to [facility], she will be placed on oral Levaquin, she will be seen in consultation by pulmonary medicine, she will be given 1 dose of IV Lasix due to lower extremity edema. Patient will have an echocardiogram performed due to concerns of possible right-sided heart failure. [facility] Medical History Abnormal Pap smear of cervix Anxiety Chest pain Factor V deficiency Migraine SOB (shortness of breath) Home Medications warfarin 4 mg tablet 4 mg PO Saturday10/01/17 [History Last Taken Unknown] warfarin 6 mg tablet 6 mg PO SUTUWETHFRSA 10/01/17 [History Last Taken Unknown] fluoxetine 20 mg capsule 50 mg PO DAILY 09/05/20 [History Last Taken Unknown] ondansetron 4 mg disintegrating tablet 4 mg PO Q8H PRN PRN Nausea #10 tabs 03/02/21 [Rx Last Taken Unknown] propranolol 20 mg tablet 40 mg PO DAILY 03/02/21 [History Last Taken Unknown] azithromycin 250 mg tablet See Rx Instructions PO .COMPLEX #6 tabs 05/04/23 [Rx Last Taken Unknown] benzonatate 100 mg capsule 100 mg PO TID PRN cough #21 caps 05/04/23 [Rx Last Taken Unknown] albuterol sulfate 90 mcg/actuation aerosol inhaler (Ventolin HFA) 2 puff inhalation Q4H PRN PRN Wheezing/SOB #1 device 08/01/23 [Rx Last Taken Unknown] codeine 10 mg-guaifenesin 100 mg/5 mL oral liquid 5 ml PO 4X/DAY PRN PRN cough 7 days #140 mL 08/01/23 [Rx Last Taken Unknown] ondansetron 4 mg disintegrating tablet 4 mg PO TID PRN nausea and vomiting #21 tabs 08/01/23 [Rx Last Taken Unknown] Allergy/AdvReac Type Severity Reaction Status Date / Time codeine AdvReac Vomiting Verified 08/08/23 14:36 hydrocodone bitartrate AdvReac Pain in Verified 08/08/23 14:36 [From Vicodin] joints Family History Father Diabetes Congestive heart failure Asthma Mother Congestive heart failure Surgical History delivery delivered History of cholecystectomy Social History household members: none Smoking Status: Never smoker alcohol intake: never substance use type: does not use caffeine: Yes what type of physical activity do you participate in: walking seatbelt use: always do you feel safe at home: Yes additional social history: - [employer] ROS Constitutional Constitutional: Denies anorexia, change in weight, chills, fatigue, fever(s), malaise, night sweats or weakness Eyes Eyes: Denies blurry vision, change in vision, discharge from eye(s) or eye pain Cardiovascular Cardiovascular: Reports dyspnea on exertion; Denies chest pain, claudication, edema or palpitations Respiratory/Chest Respiratory/Chest: Reports cough, dyspnea and shortness of breath with exertion; Denies hemoptysis or shortness of breath at rest Gastrointestinal Gastrointestinal: Denies abdominal pain, constipation, diarrhea, hematemesis, hematochezia, melena, nausea or vomiting Genitourinary Genitourinary: Denies dysuria, hematuria, urinary frequency, urinary hesitancy, urinary incontinence or urinary urgency Musculoskeletal Musculoskeletal: Denies back pain, joint pain, joint stiffness, joint swelling, myalgias or neck pain Neurologic Neurologic: Denies abnormal gait, abnormal speech, dizziness, focal weakness, headache(s), loss of vision, numbness, other visual disturbances, paresthesias, syncope or tingling Psychiatric Psychiatric: Denies anxiety, cognitive impairment, depression, irritability, mood swings or suicidal ideation Endocrine Endocrinology: Denies change in body appearance, cold intolerance, excessive sweating, heat intolerance, polydipsia or polyuria Hematologic/Lymphatic Hematologic/Lymphatic: Denies none, anemia, easy bleeding, easy bruising or lymphadenopathy Allergic/Immunologic Allergic/Immunologic: Denies rhinitis, urticaria, eczemia or asthma Vital Signs Vital Signs Vital Signs: 08/08/23 14:36 08/08/23 16:26 08/08/23 16:27 Temperature 98.5 F Temperature Source Temporal Pulse Rate 86 73 Respiratory Rate 20 H 22 H Respiratory Effort Blood Pressure 118/59 L 126/63 H Blood Pressure Mean 78 84 Pulse Ox 91 94 92 Oxygen Delivery Method Room Air Room Air Room Air Oxygen Flow Rate (L/min) 08/08/23 16:29 08/08/23 16:56 08/08/23 17:45 Temperature 98 F Temperature Source Pulse Rate 78 Respiratory Rate 20 H Respiratory Effort Non-Labored Short of Breath Blood Pressure 121/62 H Blood Pressure Mean 81 Pulse Ox 93 92 Oxygen Delivery Method Room Air Room Air Oxygen Flow Rate (L/min) 08/08/23 19:44 08/08/23 19:44 Temperature Temperature Source Pulse Rate 77 Respiratory Rate 21 H Respiratory Effort Blood Pressure 106/51 L Blood Pressure Mean 69 Pulse Ox 87 92 Oxygen Delivery Method Room Air Nasal Cannula Oxygen Flow Rate (L/min) 2 Weight Weight: 120.338 kg Body Mass Index (BMI) 47.0 Physical Exam Const alert, oriented x3, no apparent distress and average body habitus Constitutional Narrative: Patient is morbidly obese General Appearance: cooperative, well kempt and well developed Orientation / Consciousness: awake, oriented to person, oriented to place and oriented to time HEENT normocephalic, head/scalp atraumatic, hearing grossly normal bilaterally and moist oral mucous membranes Eyes PERRL, EOMs intact bilaterally and conjunctivae normal Neck supple, no JVD, thyroid normal and no carotid bruits General: trachea midline Resp normal respiratory effort, no retractions and no use of accessory muscles Resp Narrative: Auscultation of the lungs reveals inspiratory rales scattered over all lung mao, there is no rhonchi or wheezes noted Auscultation: rales diffuse; Negative for rhonchi or wheezes Cardio regular rate, regular rhythm, S1 normal heart sound, S2 normal heart sound, no murmurs, no rub and no gallops GI normal to inspection, nondistended, normoactive bowel sounds, soft to palpation, non-tender and non-distended Extremity Extremity Narrative: Bilateral lower leg edema is noted on examination Skin no rashes or lesions noted General Skin Exam: no breakdown Neuro oriented x3, CN's II-XII intact bilaterally, moves all extremities, no focal motor deficits and no sensory deficits noted Sensorium / Orientation: awake and alert Speech: speech normal Psych affect normal Results Lab / Micro Data 08/08/23 15:50 08/08/23 15:50 Labs: Laboratory Results - last 24 hr 08/08/23 15:50: WBC 4.8, RBC 3.76 L, Hgb 11.7 L, Hct 35.2 L, MCV 93.6, MCH 31.1, MCHC 33.2, RDW Std Deviation 43.6, RDW Coeff of Delmy 12.9, Plt Count 237, MPV 8.4, Immature Gran % (Auto) 1.400 H, Neut % (Auto) 63.3, Lymph % (Auto) 24.6, [place] % (Auto) 8.9, Eos % (Auto) 1.4, Baso % (Auto) 0.4, Absolute Neuts (auto) 3.1, Absolute Lymphs (auto) 1.19, Nucleated RBC % 0, PT 18.7 H, INR 1.6, Sodium 139, Potassium 3.5, Chloride 102, Carbon Dioxide 32.0, Anion Gap 5, BUN 15, Creatinine 1.04 H, Estim Creat Clear Calc 76.78, Est GFR (MDRD) Af Amer 71, Est GFR (MDRD) Non-Af 58 L, BUN/Creatinine Ratio 14.4, Glucose 96, Calcium 8.5, Troponin I High Sens 10, B-Natriuretic Peptide 59.7 Micro: Microbiology 08/08/23 18:35 Nasal Secretion SARS-CoV-2 Antigen (Rapid) - Final Imaging Radiology Impression Chest CTA 08/08/23 15:15 IMPRESSION: 1. No evidence of pulmonary embolus. 2. Diffuse patchy bilateral airspace disease and groundglass opacities which may represent developing bilateral pneumonia. Electronically Signed: Carlos Diaz MD at 16:24 EST , Assessment & Plan Assessment/Plan (1) Hypoxia: PLAN: Plan 1. Bilateral pneumonia-probably viral in nature, at the time of this dictation, her COVID antigen test was negative, respiratory panel is pending, patient will be maintained on oral Levaquin, she will be given aerosol treatments and seen in consultation by pulmonary medicine. Due to concerns of fluid overload I have elected to give her 1 dose of IV Lasix. #2 hypoxia secondary to #1-pulse ox will be monitored #3 factor V Leiden-patient will be placed on subcu Lovenox, she has not been taking her Coumadin on a routine basis, she has been reminded how important it is is to stay compliant with her medications. #4 lower extremity edema-etiology unclear, patient will undergo an echocardiogram to rule out any valvular dysfunction and/or pulmonary hypertension. #5 morbid obesity-complicates care, medical course, recovery, and prognosis #6 poor compliance with medical regimen-complicates care, medical course, recovery, and prognosis Total clinical time spent by myself addressing the patient's medical issues, reviewing all of her data, and collaborating with patient's care team: 75 minutes Charges/Coding Visit Charges Inpatient E&M: 33308 Init Hosp L3
--- NOTE | 2023-08-08 20:43 | ECHOCS_ITS ---
Reason For Study: Dyspnea/SOB Procedure This was a 2D Doppler, Color Flow transthoracic echocardiogram. Contrast injection was performed. The study was technically difficult. Exam performed portable in patient room. Left Ventricle Normal LV size. The estimated ejection fraction is 60 %. No evidence for diastolic dysfunction. No regional wall motion abnormalities noted. Right Ventricle Normal RV size. Normal systolic function. Atria Normal left atrium. Normal right atrium. No doppler evidence for ASD. Mitral Valve There is no mitral valve stenosis. No mitral valve insufficiency. Tricuspid Valve There is no tricuspid stenosis. Unable to estimate RV systolic pressure due to inadequate jet, pulmonary artery pressure probably normal. Aortic Valve Trisinus/trileaflet aortic valve. There is no aortic stenosis. No aortic valve insufficiency. Pulmonic Valve There is no pulmonic valvular stenosis. Trivial pulmonic valve insufficiency. Great Vessels Normal aortic root. Pericardium/Pleural No pericardial effusion. Medication Diluted definity 3.5ml given slow IV push to enhance endocardial definition. MMode/2D Measurements & Calculations LVIDd: 4.7 cm IVSd: 1.0 cm Ao root diam: 3.2 cm LVIDs: 3.0 cm LVPWd: 0.92 cm RVDd: 3.1 cm FS: 35.3 % LAV(MOD-bp): 27.6 ml LA A4 area: 12.8 cm2 LA dimension(2D): 3.1 cm LAV(MOD-bp) Indexed: 12.7 ml/m2 LAV(MOD-sp2): 27.4 ml LAV(MOD-sp4): 27.6 ml RA A4 area: 11.3 cm2 Time Measurements MV dec time: 0.22 sec Doppler Measurements & Calculations MV E max dayne: 55.4 cm/sec Lat Peak E' Dayne: 8.4 cm/sec Med Peak E' Dayne: 9.1 cm/sec MV A max dayne: 66.0 cm/sec E/E' lat: 6.6 E/E' med: 6.1 MV E/A: 0.84 MV dec slope: 256.8 cm/sec2 Ao V2 max: 117.3 cm/sec LV V1 max: 110.2 cm/sec Ao max P.5 mmHg LV V1 max P.9 mmHg Ao V2 mean: 89.7 cm/sec Ao mean P.4 mmHg Ao V2 VTI: 22.2 cm PA V2 max: 111.8 cm/sec ECHO/Echo Complete W/ Contrast Interpretation Summary The estimated ejection fraction is 60 %. No evidence for diastolic dysfunction. Ordering Physician: John Paul Trujillo Referring Physician: Handy Mike Performed By: Carolina Armas RDCS, RVT
[2023-08-08] MEDS: 0.9% Saline Lock 10 ML Syringe IV (22:01)
[2023-08-08] MEDS: Furosemide 40 MG/4 ML Vial IV (22:01)
[2023-08-08] MEDS: Enoxaparin 120 MG/0.8 ML Syringe SC (22:01)
[2023-08-08] MEDS: levoFLOXacin 750 MG Tablet PO (22:01)
[2023-08-08] MEDS: Albuterol 2.5 MG/3 ML VIAL.NEB. INHALATION (23:01)
[2023-08-08] MEDS: Oseltamivir Phosphate 75 MG Capsule PO (23:51)
[2023-08-09] VITALS (7 sets, daily range): BP systolic 103–122; BP diastolic 57–72; PULSE 70–88; RESP 16–20; TEMP 36.5–36.9; O2SAT 94–98
[2023-08-09] MEDS: Enoxaparin 120 MG/0.8 ML Syringe SC ×2 (05:39→18:04)
[2023-08-09] MEDS: levoFLOXacin 750 MG Tablet PO (05:39)
[2023-08-09] MEDS: Albuterol 2.5 MG/3 ML VIAL.NEB. INHALATION ×3 (06:52→19:20)
[2023-08-09 07:43] LABS: Absolute Lymphocyte Count 0.85 X10^3/uL (0.83-4.51); Absolute Neutrophil Count 2.4 X10^3/uL (2.0-7.7); Basophil# 0.02 X10^3/uL; Basophil% 0.5 % (0-1); Eosinophil# 0.06 X10^3/uL; Eosinophils% 1.6 % (0-5); Hematocrit 32.9 % (37-47); Lymphocyte # 0.85 X10^3/ul (0.83-4.51); Lymphocyte % 22.1 % (19-41); Mean Corp Hgb Conc 33.4 g/dL (32-36); Mean Corpuscular Hgb 31.3 pg (27.0-32.0); Mean Corpuscular Volume 93.7 fL (81-99); Mean Platelet Vol. 7.9 fl (6.2-12.0); Monocyte# 0.41 X10^3/uL; Monocyte% 10.7 % (0-10); NRBC Flagged by Analyzer 0 % (0-5); Neutrophil # 2.43 X10^3/uL (2.7-7.7); Neutrophil % 63.3 % (47-70); Platelet Count 200 K/mm3 (150-450); RBC Distribution Width CV 12.9 % (11.6-14.6); RBC Distribution Width SD 43.7 fl (35.1-43.9); Red Blood Count 3.51 M/mm3 (4.2-5.4); White Blood Count 3.8 K/mm3 (4.4-11.0)
[2023-08-09 08:15] LABS: Anion Gap 4 (5-15); BUN 12 mg/dL (7-18); BUN/Creat Ratio 11.3 RATIO (10-20); Calcium,Total 8.3 mg/dL (8.5-10.1); Chloride 102 mmol/L (98-107); Creatinine, Serum 1.06 mg/dL (0.55-1.02); EST Glomerular Filtration Rate 57 mL/min (>60); Est Glom Filt Rate - Afr Amer 69 mL/min (>60); Estimated Creatinine Clearance 74.03 ml/min; Glucose 96 mg/dL (74-106); Sodium Level 139 mmol/L (136-145)
--- NOTE | 2023-08-09 08:49 | EX.PCM.CONCC ---
Assessment & Plan Assessment/Plan (1) Shortness of breath: (2) Factor V Leiden: (3) Influenza A: PLAN: Plan RECOMMENDATIONS: 1. Encourage incentive spirometer and Acapella 2. Discontinue codeine. Add Mucinex 3. Check nasal MRSA swab 4. Reinitiate diuretics 5. Consider room air ABG and walking oximetry prior to discharge 6. Repeat CT scan in 6 to 8 weeks to document resolution 7. Outpatient complete PFT for evaluation of underlying obstructive lung disease IMPRESSIONS: 1. Acute hypoxic respiratory insufficiency with recent influenza A Patient reportedly was diagnosed with influenza A approximately 2 weeks ago. It is unclear if swab represents a repeat infection or just persistence of genetic material. Patient would be at risk for possible subsequent bacterial infection, but does not have a significant fever or leukocytosis at this time. Will obtain a MRSA swab to be sure that vancomycin does not need to be added empirically pending cultures. Will discontinue codeine, add Mucinex, incentive spirometer and Acapella for pulmonary recruitment. Patient will likely require a CT scan in 6 to 8 weeks to document resolution. Patient has been noncompliant with Coumadin and Lasix therapy, but no PE was noted on CTA of the chest. Would recommend reinitiation of diuretics. Patient does have an elevated bicarbonate, so obesity hypoventilation would be a concern. Could obtain a room air ABG once patient is off of supplemental oxygen. Given patient's requirements of oxygen, outpatient workup with a complete PFT would be appropriate to evaluate for possible underlying obstructive lung disease such as asthma, which may lead to increased infiltrates following a viral infection. 2. Factor V Leiden/morbid obesity/poor compliance/depression Complicates care, management, recovery and prognosis. Patient would likely benefit from an outpatient sleep workup. Patient may require lower extremity Dopplers for evaluation of DVT given subtherapeutic INR if lower extremity edema does not improve with diuretics alone. Okay to continue with baseline fluoxetine from my perspective. HPI Consult Data Date of Consult: 08/09/23 HPI Narrative HPI Narrative: EDUARDO LOZANO is a 53 F, with past medical history listed below, who presents to [facility] on 08/08/2023 secondary to progressive shortness of breath over the last 2 to 3 days. Patient does have a history of factor V Leiden and multiple DVTs in the past. Patient reportedly has not been taking her Coumadin or Lasix over the last 2 weeks. Patient reportedly had tested positive for influenza A and was having some nausea. Patient had reported some increased lower extremity edema. Patient had also reported some pleuritic type chest pains. Patient went to see her PCP and was encouraged to come to the ED to rule out PE. Patient was noted to be 89% on room air. Patient reports a wet cough, but no fevers, chills, chest or abdominal pain. In the ER, patient was afebrile, but slightly tachypneic at 22 breaths/min. Patient was normotensive and initially was saturating well on room air. Laboratory data showed a white blood cell count of 4.8, hemoglobin of 11.7 and platelets of 237. INR was only 1.6 with a creatinine of 1.04 and a bicarbonate of 32. Glucose was within normal limits. A CTA of the chest showed no PE, but diffuse bilateral groundglass opacities. Patient was given Rocephin and azithromycin and admitted to the hospital for further evaluation. Since being admitted to the hospital, patient has tested positive for influenza A. Patient has been requiring 2 L nasal cannula to maintain saturations. Patient is not reporting any current hemoptysis or sinus congestion. Patient denies any history of previous lung disease. 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 Patient denies any exposure to asbestos or TB. No traumatic or travel history has been reported. Patient does not have any exposure to birds or bats. Patient does have a puppy, but is never required any inhaler for asthma that she is aware of. Patient has not required supplemental oxygen previously. Patient states she has never had a PFT or seen a quebracho tanner. Review of systems otherwise negative from a constitutional, HEENT, respiratory, cardiovascular, GI, genitourinary, musculoskeletal, skin, neurologic, psychiatric and hematologic system unless stated above. [facility] Medical History Abnormal Pap smear of cervix Anxiety Chest pain DVT (deep venous thrombosis) Factor V deficiency Migraine Non-smoker SOB (shortness of breath) Home Medications warfarin 4 mg tablet 4 mg PO Saturday10/01/17 [History Last Taken Unknown] warfarin 6 mg tablet 6 mg PO SUTUWETHFRSA factor 5 10/01/17 [History Last Taken 08/08/23] fluoxetine 20 mg capsule 60 mg PO DAILY anxiety 09/05/20 [History Last Taken Unknown] ondansetron 4 mg disintegrating tablet 4 mg PO Q8H PRN PRN Nausea #10 tabs 03/02/21 [Rx Last Taken Unknown] propranolol 20 mg tablet 40 mg PO DAILY 03/02/21 [History Last Taken Unknown] benzonatate 100 mg capsule 100 mg PO TID PRN cough #21 caps 05/04/23 [Rx Last Taken Unknown] albuterol sulfate 90 mcg/actuation aerosol inhaler (Ventolin HFA) 2 puff inhalation Q4H PRN PRN Wheezing/SOB #1 device 08/01/23 [Rx Last Taken Unknown] codeine 10 mg-guaifenesin 100 mg/5 mL oral liquid 5 ml PO 4X/DAY PRN PRN cough 7 days #140 mL 08/01/23 [Rx Last Taken Unknown] ondansetron 4 mg disintegrating tablet 4 mg PO TID PRN nausea and vomiting #21 tabs 08/01/23 [Rx Last Taken Unknown] ferrous sulfate 140 mg (45 mg iron) tablet,extended release (Slow Release Iron) 140 mg PO DAILY supplement 08/08/23 [History Last Taken Unknown] furosemide 20 mg tablet 20 mg PO DAILY water pill 08/08/23 [History Last Taken Unknown] Allergy/AdvReac Type Severity Reaction Status Date / Time codeine AdvReac Vomiting Verified 08/08/23 14:36 hydrocodone bitartrate AdvReac Pain in Verified 08/08/23 14:36 [From Vicodin] joints Family History Father Diabetes Congestive heart failure Asthma Mother Congestive heart failure Surgical History delivery delivered History of cholecystectomy Social History household members: none Smoking Status: Never smoker alcohol intake: never substance use type: does not use caffeine: Yes what type of physical activity do you participate in: walking seatbelt use: always do you feel safe at home: Yes additional social history: - [employer] ROS ROS Narrative See HPI Physical Exam Const alert, oriented x3 and no apparent distress Constitutional Narrative: Patient is morbidly obese HEENT normocephalic, head/scalp atraumatic, hearing grossly normal bilaterally and moist oral mucous membranes Eyes PERRL, EOMs intact bilaterally and conjunctivae normal Eyes Narrative: Glasses in place Neck supple, no JVD, thyroid normal and no carotid bruits General: trachea midline Resp normal respiratory effort, no retractions and no use of accessory muscles Auscultation: rhonchi right upper and right lower; Negative for rales or wheezes Cardio regular rate, regular rhythm, S1 normal heart sound, S2 normal heart sound, no murmurs, no rub and no gallops GI normal to inspection, nondistended, normoactive bowel sounds, soft to palpation, non-tender and non-distended Extremity General Extremity: edema; Negative for clubbing Skin no rashes or lesions noted General Skin Exam: no breakdown Neuro oriented x3, CN's II-XII intact bilaterally, moves all extremities, no focal motor deficits and no sensory deficits noted Psych cooperative and affect normal Medical Records Data Attestation: I reviewed the patient's medical records Lab / Micro Data Attestation: I reviewed the patient's lab results. Lab results narrative: Patient does have a history of elevated bicarbonate on BMPs. No ABG available for review. 08/09/23 07:25 08/09/23 07:25 Labs: Laboratory Results - last 24 hr 08/08/23 15:50: WBC 4.8, RBC 3.76 L, Hgb 11.7 L, Hct 35.2 L, MCV 93.6, MCH 31.1, MCHC 33.2, RDW Std Deviation 43.6, RDW Coeff of Delmy 12.9, Plt Count 237, MPV 8.4, Immature Gran % (Auto) 1.400 H, Neut % (Auto) 63.3, Lymph % (Auto) 24.6, [place] % (Auto) 8.9, Eos % (Auto) 1.4, Baso % (Auto) 0.4, Absolute Neuts (auto) 3.1, Absolute Lymphs (auto) 1.19, Nucleated RBC % 0, PT 18.7 H, INR 1.6, Sodium 139, Potassium 3.5, Chloride 102, Carbon Dioxide 32.0, Anion Gap 5, BUN 15, Creatinine 1.04 H, Estim Creat Clear Calc 76.78, Est GFR (MDRD) Af Amer 71, Est GFR (MDRD) Non-Af 58 L, BUN/Creatinine Ratio 14.4, Glucose 96, Calcium 8.5, Troponin I High Sens 10, B-Natriuretic Peptide 59.7 08/09/23 07:25: WBC 3.8 L, RBC 3.51 L, Hgb 11.0 L, Hct 32.9 L, MCV 93.7, MCH 31.3, MCHC 33.4, RDW Std Deviation 43.7, RDW Coeff of Delmy 12.9, Plt Count 200, MPV 7.9, Immature Gran % (Auto) 1.800 H, Neut % (Auto) 63.3, Lymph % (Auto) 22.1, [place] % (Auto) 10.7 H, Eos % (Auto) 1.6, Baso % (Auto) 0.5, Absolute Neuts (auto) 2.4, Absolute Lymphs (auto) 0.85, Nucleated RBC % 0, Sodium 139, Potassium 3.0 L, Chloride 102, Carbon Dioxide 33.0 H, Anion Gap 4 L, BUN 12, Creatinine 1.06 H, Estim Creat Clear Calc 74.03, Est GFR (MDRD) Af Amer 69, Est GFR (MDRD) Non-Af 57 L, BUN/Creatinine Ratio 11.3, Glucose 96, Calcium 8.3 L Micro: Microbiology 08/08/23 Unknown Mucosa - Nasopharyngeal Respiratory Panel (PCR) - Final Influenza A (Subtype H1) 08/08/23 18:35 Nasal Secretion SARS-CoV-2 Antigen (Rapid) - Final Imaging Radiology Impression Chest CTA 08/08/23 15:15 IMPRESSION: 1. No evidence of pulmonary embolus. 2. Diffuse patchy bilateral airspace disease and groundglass opacities which may represent developing bilateral pneumonia. Electronically Signed: Carlos Diaz MD at 16:24 EST , Charges/Coding Visit Charges Inpatient E&M: 91743 Init Hosp L2
[2023-08-09] MEDS: Potassium Chloride Oral Tablet 20 MEQ PO ×2 (09:30→18:03)
[2023-08-09] MEDS: Propranolol 40 MG Tablet PO (09:30)
[2023-08-09] MEDS: guaiFENesin 1,200 MG Tablet 1200 MG PO ×2 (09:30→21:49)
[2023-08-09] MEDS: FLUoxetine 20 MG Capsule 60 MG PO (09:31)
[2023-08-09] MEDS: Oseltamivir Phosphate 75 MG Capsule PO ×2 (09:31→21:49)
--- NOTE | 2023-08-09 13:20 | CASEMGMT ---
JOSE LUNA Assessment Face to Face with patient for initial transition planning/care coordination assessment. JOSE LUNA introduced self and role at [facility], pt voices understanding. Pt is A&Ox4 and is resting comfortably in bed and is calm. Care providers, pharmacy, and demographics verified. Admitting dx: BL Pneumonia, Hypoxia LACE Strata: 2 PCP: Rashid Specialists: Denies Preferred Pharmacy: [facility] Insurance: Pt is SP. Pt states that she was given info about insurances already here in the hospital. ANJEL Mohan made aware as well. Prescription Benefit: None LNOK: Ronnie Cruz (SO) Living Arrangements: Pt lives in a mobile home with her SO with 3 steps to enter with no issues. ADLs/IADLs: Ind Transportation: Drives, pt SO drives DME: Cane and walker at home but does not use. Walk-in shower with chair. Pt denies all other DME uses or needs. Pt is currently 97% on RA and does not anticipate needing home O2. HHC/SNF: Denies history or needs. Pt?s goal: Home Plan: 6-Click is 24. No therapy ordered. Pt refusing HHC or OP therapy needs. Pt states that she feels safe and comfortable DC home with no additional needs at this time. Harriet Alvarez RN, CM
--- NOTE | 2023-08-09 17:53 | PN.HOSP_ITS ---
Reason for Visit Reason for Visit: Shortness of breath/lower extremity edema/hypoxia Subjective Subjective Patient is a 53-year-old female who was sent to the emergency department at [facility] on 08/08/2023 by her primary care physician secondary to oxygen saturation of 89% on room air at the office. The patient had been complaining of some shortness of breath and was recently diagnosed with influenza approximately 10 to 14 days prior to presentation. Patient denies any pulmonary issues at baseline and has no history of tobacco abuse. She is morbidly obese. The patient does take Lasix regularly for lower extremity edema and states that she has been sick lately and not been able to take her oral medications such as her Lasix and Coumadin. 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 She denied any productive cough, fever, chills but has had a dry cough. Vital signs on presentation d emonstrated temperature of 98.5, respiratory rate was 20, heart rate was 86, blood pressure was 118/59 and oxygen saturation was 91% on room air. Breathing was mildly labored. Her CBC was unremarkable for any acute changes other than a mild anemia with a hemoglobin of 11.7. She had no white count or left shift. Her INR was 1.6. Her chemistry panel was unremarkable with a stable serum creatinine. BNP was performed and only 59 and high-sensitivity troponin was 10. Rapid flu was still positive for influenza A and a Gram stain is pending. MRSA PCR was negative at nasal secretion. Rapid COVID was negative. CTA of the chest showed no pulmonary embolism but did show diffuse patchy bilateral airspace disease and groundglass opacities concerning for bilateral pneumonia. Her echocardiogram showed an EF of 60% with no evidence of diastolic dysfunction and no significant valvular abnormalities. Pulmonary pressures were unable to be assessed however they were estimated to be normal. Pulmonary medicine was consulted and recommended ongoing pulmonary toilet, reinitiation of her diureti cs and addition of incentive spirometry and Acapella. They did want a repeat CT scan in 6 to 8 weeks to document resolution of the abnormalities found on admission as well as outpatient PFTs. Mucinex was added. Empiric antibiotics were continued at this time. She was also started on Tamiflu given the new flu positive however it is unclear if this is a new infection or just a persistently positive antigen. Pt feeling 60% better. Had some vomiting up until 2 days ago. Objective Data Objective Data Vital Signs: Vital Signs Temp Pulse Resp BP Pulse Ox O2 Del Method O2 Flow Rate 97.7 F L 80 16 103/57 L 94 Room Air 2 08/09/23 15:54 08/09/23 15:54 08/09/23 15:54 08/09/23 15:54 08/09/23 15:54 08/09/23 16:44 08/09/23 06:52 Oxygen Flow Rate (L/min) 2 Oxygen Delivery Method Room Air Weight: 120.338 kg Body Mass Index (BMI) 47.0 Intake & Output: Intake and Output for Last 24 Hours 08/07/23 08/08/23 08/09/23 23:59 23:59 23:59 Intake Total 1050 / 1050 240 / 240 Balance 1050 / 1050 240 / 240 Lab / Micro Data 08/09/23 07:25 08/09/23 07:25 Labs: Laboratory Results - last 24 hr 08/09/23 07:25: WBC 3.8 L, RBC 3.51 L, Hgb 11.0 L, Hct 32.9 L, MCV 93.7, MCH 31.3, MCHC 33.4, RDW Std Deviation 43.7, RDW Coeff of Delmy 12.9, Plt Count 200, MPV 7.9, Immature Gran % (Auto) 1.800 H, Neut % (Auto) 63.3, Lymph % (Auto) 22.1, [place] % (Auto) 10.7 H, Eos % (Auto) 1.6, Baso % (Auto) 0.5, Absolute Neuts (auto) 2.4, Absolute Lymphs (auto) 0.85, Nucleated RBC % 0, Sodium 139, Potassium 3.0 L, Chloride 102, Carbon Dioxide 33.0 H, Anion Gap 4 L, BUN 12, Creatinine 1.06 H, Estim Creat Clear Calc 74.03, Est GFR (MDRD) Af Amer 69, Est GFR (MDRD) Non-Af 57 L, BUN/Creatinine Ratio 11.3, Glucose 96, Calcium 8.3 L Micro: Microbiology 08/08/23 Unknown Mucosa - Nasopharyngeal Respiratory Panel (PCR) - Final Influenza A (Subtype H1) 08/09/23 10:15 Nasal Secretion MRSA (PCR) - Final 08/08/23 18:35 Nasal Secretion SARS-CoV-2 Antigen (Rapid) - Final Radiography Diagnostic Testing: Radiology Impression Echocardiogram 08/08/23 20:43 Interpretation Summary The estimated ejection fraction is 60 %. No evidence for diastolic dysfunction. Ordering Physician: John Paul Trujillo Referring Physician: Handy Mike Performed By: Carolian Armas, LEILA, RVT Physical Exam Const alert, oriented x3, no apparent distress, healthy appearing and well nourished Constitutional Narrative: Middle-aged, white female, sitting up in a chair at the bedside watching television and appears comfortable, nontoxic, morbidly obese HEENT head/scalp atraumatic and moist oral mucous membranes HEENT Narrative: Mallampati 3, no thrush Head and Scalp: normocephalic Resp normal respiratory effort, no retractions, no use of accessory muscles and No clear to auscultation bilaterally Resp Narrative: Diffuse bilateral crackles Auscultation: crackles Cardio regular rate, regular rhythm, S1 normal heart sound, S2 normal heart sound, no murmurs, no rub, no gallops and no clicks GI normal to inspection, nondistended, normoactive bowel sounds, soft to palpation and non-tender GI Narrative: Large protuberant abdomen Extremity no clubbing, cyanosis or edema Neuro oriented x3, moves all extremities and no focal motor deficits Speech: speech normal Psych affect normal Psych Narrative: Very pleasant interacts appropriately Assessment & Plan Assessment/Plan (1) Edema of both lower extremities: (2) Shortness of breath: (3) Hypoxia: (4) Influenza A: PLAN: Plan Hypoxia -Chest CT showed patchy airspace disease bilaterally and no PE -Echocardiogram was normal with an EF of 65% no diastolic dysfunction and anticipated normal pulmonary pressures -Flu swab was positive but unclear if this represents acute infection or persistently positive due to recent infection 10 to 14 days ago -Continue incentive spirometry and Acapella -Continue empiric antibiotics for now as sputum cultures pending -Continue diuretics -As needed aerosols -Continue Tamiflu -Pulmonary medicine has evaluated the patient and appreciate input -Repeat CT in 6 to 8 weeks and obtain outpatient PFTs after discharge History of VTE/factor V Leiden abnormality -INR subtherapeutic -Will bridge with Lovenox subcu until INR is therapeutic x 2 -May need to go home on subcu Lovenox to bridge -Patient has not been taking her Coumadin for about 2 weeks so we will reinitiate Hypokalemia -40 mEq p.o. potassium given -Recheck in a.m. History of anemia -Appears that she has previously been stable -Slight drop on admission however has not been on her diuretics -Continue home iron supplementation Hypertension/migraine -Continue home propranolol Anxiety/depression -continue fluoxetine Morbid obesity -BMI is 47 -Recommend weight loss next-complicates treatment, prognosis, outcomes next-Will need workup for obstructive sleep apnea DVT prophylaxis -full Lovenox with bridging to Coumadin CODE STATUS Full code Charges/Coding Visit Charges Inpatient E&M: 61811 Subs Hosp L2
[2023-08-09 23:18] LABS: Blood Gas Specimen Type VEN; O2 Delivery Device Not entered; SITE Not entered; VBG BASE EXCESS 8 mmol/L (-1.0-3.5); VBG Bicarbonate 32 mmol/L (22-26); VBG PO2 50 mmHg (25-40); VBG SO2 86 % (50-70); VBG TCO2 33 mmol/L (23-33); VBG pCO2 46.4 mmHg (41-51); VBG pH 7.44 (7.32-7.42)
[2023-08-10 04:03] VITALS: BP 102/66; PULSE 79; RESP 18; TEMP 36.6; O2SAT 94
[2023-08-10] MEDS: Potassium Chloride Oral Tablet 20 MEQ 60 MEQ PO (04:06)
[2023-08-10] MEDS: Enoxaparin 120 MG/0.8 ML Syringe SC (06:27)
[2023-08-10] MEDS: levoFLOXacin 750 MG Tablet PO (06:27)
[2023-08-10] MEDS: Furosemide 20 MG Tablet PO (07:40)
[2023-08-10] MEDS: Ferrous Sulfate 325 MG Tablet PO (07:41)
[2023-08-10] MEDS: guaiFENesin 1,200 MG Tablet 1200 MG PO (07:41)
[2023-08-10] MEDS: FLUoxetine 20 MG Capsule 60 MG PO (07:41)
[2023-08-10] MEDS: Propranolol 40 MG Tablet PO (07:41)
[2023-08-10] MEDS: Oseltamivir Phosphate 75 MG Capsule PO (07:41)
[2023-08-10 07:50] VITALS: O2SAT 96
[2023-08-10 07:51] LABS: Absolute Lymphocyte Count 1.05 X10^3/uL (0.83-4.51); Absolute Neutrophil Count 1.6 X10^3/uL (2.0-7.7); Basophil# 0.01 X10^3/uL; Basophil% 0.3 % (0-1); Eosinophil# 0.08 X10^3/uL; Eosinophils% 2.6 % (0-5); Hematocrit 34.8 % (37-47); Hemoglobin 11.7 g/dL (12.0-15.0); Lymphocyte # 1.05 X10^3/ul (0.83-4.51); Lymphocyte % 33.8 % (19-41); Mean Corp Hgb Conc 33.6 g/dL (32-36); Mean Corpuscular Hgb 31.8 pg (27.0-32.0); Mean Corpuscular Volume 94.6 fL (81-99); Mean Platelet Vol. 8.4 fl (6.2-12.0); Monocyte# 0.32 X10^3/uL; Monocyte% 10.3 % (0-10); NRBC Flagged by Analyzer 0 % (0-5); Neutrophil # 1.61 X10^3/uL (2.7-7.7); Neutrophil % 51.7 % (47-70); Platelet Count 227 K/mm3 (150-450); RBC Distribution Width SD 44.2 fl (35.1-43.9); Red Blood Count 3.68 M/mm3 (4.2-5.4); White Blood Count 3.1 K/mm3 (4.4-11.0)
[2023-08-10 08:20] LABS: Anion Gap 5 (5-15); BUN 13 mg/dL (7-18); BUN/Creat Ratio 12.3 RATIO (10-20); Calcium,Total 8.7 mg/dL (8.5-10.1); Chloride 105 mmol/L (98-107); Creatinine, Serum 1.06 mg/dL (0.55-1.02); EST Glomerular Filtration Rate 57 mL/min (>60); Est Glom Filt Rate - Afr Amer 69 mL/min (>60); Estimated Creatinine Clearance 74.03 ml/min; Glucose 86 mg/dL (74-106); Potassium 3.6 mmol/L (3.5-5.1); Sodium Level 140 mmol/L (136-145)
[2023-08-10 09:00] VITALS: BP 115/67; PULSE 74; RESP 16; TEMP 36.2; O2SAT 95
[2023-08-10 09:55] VITALS: O2SAT 95; O2SAT 96
--- NOTE | 2023-08-10 10:23 | PCM.DC.SUM ---
Providers Date of Admission: 08/08/23 Date of Discharge: 08/10/23 Primary Care Physician: Dr. Handy Mike, DO Consultations 08/08/23 20:43 Consult: Research And Evaluation Analyst / Pulmonary Medicine Routine Consulting Provider: Intensivists/Pulmonary Med Reason for Consult: Pneumonia versus CHF EMERGENT Consult: No MD Notified: Yes Date Notified: 08/08/23 Time Notified: 18:14 Method of Notification: Verbal Reason For Visit: BILATERAL PNEUMONIA, HYPOXIA Diagnosis Discharge Diagnosis (1) Edema of both lower extremities: Status: Acute Code(s): R60.0 - Localized edema (2) Shortness of breath: Status: Acute Code(s): R06.02 - Shortness of breath (3) Hypoxia: Status: Acute Code(s): R09.02 - Hypoxemia (4) Influenza A: Status: Acute Code(s): J10.1 - Influenza due to other identified influenza virus with other respiratory manifestations Medications at Discharge Home Medications warfarin 4 mg tablet 4 mg PO Saturday10/01/17 warfarin 6 mg tablet 6 mg PO SUTUWETHFRSA factor 5 10/01/17 fluoxetine 20 mg capsule 60 mg PO DAILY anxiety 09/05/20 ondansetron 4 mg disintegrating tablet 4 mg PO Q8H PRN PRN Nausea #10 tabs 03/02/21 propranolol 20 mg tablet 40 mg PO DAILY 03/02/21 albuterol sulfate 90 mcg/actuation aerosol inhaler (Ventolin HFA) 2 puff inhalation Q4H PRN PRN Wheezing/SOB #1 device 08/01/23 codeine 10 mg-guaifenesin 100 mg/5 mL oral liquid 5 ml PO 4X/DAY PRN PRN cough 7 days #140 mL 08/01/23 ondansetron 4 mg disintegrating tablet 4 mg PO TID PRN nausea and vomiting #21 tabs 08/01/23 ferrous sulfate 140 mg (45 mg iron) tablet,extended release (Slow Release Iron) 140 mg PO DAILY supplement 08/08/23 furosemide 20 mg tablet 20 mg PO DAILY water pill 08/08/23 benzonatate 100 mg capsule 100 mg PO TID PRN cough #21 caps 08/10/23 enoxaparin 120 mg/0.8 mL subcutaneous syringe 120 mg (0.8 mL) subcut Q12@0600,1800 #8 mL 08/10/23 levofloxacin 750 mg tablet 750 mg PO DAILY@0600 #5 tabs 08/10/23 Hospital Course Operations None Procedures EKG and - (Chest x-ray/CTA of the chest) Summary of Care Provided Minutes Spent on Discharge: 38 Hospital Course: Ms Holt is a 53-year-old white female who presented to the emergency department at [facility] on 08/08/2023 at the referral of her primary care physician secondary to oxygen saturation of 89% on room air in the office. The patient had been having some shortness of breath and had recently been diagnosed with influenza approximately 10 to 14 days prior to presentation. She denies any pulmonary issues at baseline and has no history of tobacco abuse. She is morbidly obese. She does take Lasix on a regular basis for lower extremity edema and reported that she had had nausea and vomiting lately and had not been able to take her oral medications including her Lasix and Coumadin. 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 She denied productive cough however complained of a dry cough, denied fevers, chills but did have some nausea and vomiting at that resolved about 24 to 48 hours prior to presentation. She does not wear oxygen at baseline. Vital signs on presentation demonstrated temperature of 98.5, respiratory rate was 20, heart rate was 86, blood pressure was 118/59 and oxygen saturation was 91% on room air. Breathing was mildly labored. Her CBC was unremarkable for any acute changes other than a mild anemia with a hemoglobin of 11.7. She had no white count or left shift. Her INR was 1.6. Her chemistry panel was unremarkable with a stable serum creatinine. BNP was performed and only 59 and high-sensitivity troponin was 10. Rapid flu was still positive for influenza A and a Gram stain is pending. MRSA PCR was negative at nasal secretion. Rapid COVID was negative. CTA of the chest showed no pulmonary embolism but did show diffuse patchy bilateral airspace disease and groundglass opacities concerning for bilateral pneumonia. Her echocardiogram showed an EF of 60% with no evidence of diastolic dysfunction and no significant valvular abnormalities. Pulmonary pressures were unable to be assessed however they were estimated to be normal. Pulmonary medicine was consulted and recommended ongoing pulmonary toilet, reinitiation of her diuretics and addition of incentive spirometry and Acapella. They did want a repeat CT scan in 6 to 8 weeks to document resolution of the abnormalities found on admission as well as outpatient PFTs. Mucinex was added. Empiric antibiotics were continued at this time. She was also started on Tamiflu given the new flu positive however it is unclear if this is a new infection or just a persistently positive antigen. She did have crackly diffuse lung sounds and we did restart her Lasix. She had no further nausea or vomiting. She was also placed on Levaquin for concern of pneumonia with potential aspiration. Given the fact her INR was subtherapeutic on admission at 1.6 she was started on therapeutic enoxaparin and her Coumadin was restarted. At discharge her INR was 1.7. We requested that she continue Lovenox until she has 2 consecutively therapeutic INR's and have asked her to have a repeat INR done on 08/12/2023. We did ambulatory pulse ox on the day of discharge as she was satting at 96% on room air. Desaturation was only to 95% with exertion. Will discharge her home with a prescription for Levaquin, Tessalon Perles and enoxaparin as noted above. She was discharged home in stable condition. I have asked that she call Saturday to set up a follow-up appointment with pulmonary medicine for the next 2 to 4 weeks and follow-up with her primary care physician within the next 2 weeks. Discharge diagnoses: Hypoxia-resolved Positive flu antigen History of VTE Factor V Leiden abnormality Hypokalemia-resolved History of anemia Hypertension History of migraine Anxiety Depression Morbid obesity Physical Exam Const alert, oriented x3, no apparent distress, average body habitus, no limitations, healthy appearing and well nourished Constitutional Narrative: Middle-aged, white female, sitting up in a chair at the bedside watching television and appears comfortable, nontoxic, morbidly obese General Appearance: cooperative, comfortable, well kempt and well developed Orientation / Consciousness: awake, oriented to person, oriented to place and oriented to time Exam Limitations: no limitations Nutritional Appearance: morbidly obese HEENT normocephalic, head/scalp atraumatic, hearing grossly normal bilaterally and moist oral mucous membranes HEENT Narrative: Mallampati 3, no thrush Eyes PERRL, EOMs intact bilaterally and conjunctivae normal Eyes Narrative: No scleral icterus Neck no lymphadenopathy and supple Neck Narrative: Trachea midline, no thyroid enlargement, neck is short and thick Resp normal respiratory effort, no retractions, no use of accessory muscles and clear to auscultation bilaterally Resp Narrative: Crackles are resolved Auscultation: Negative for crackles, rhonchi or wheezes Cardio regular rate, regular rhythm, S1 normal heart sound, S2 normal heart sound, no murmurs, no rub, no gallops and no clicks GI normal to inspection, nondistended, normoactive bowel sounds, soft to palpation and non-tender GI Narrative: Large protuberant abdomen Extremity no clubbing, cyanosis or edema Skin no rashes or lesions noted, no wounds, skin turgor normal and no jaundice Neuro oriented x3, moves all extremities and no focal motor deficits Sensorium / Orientation: awake and alert Speech: speech normal Psych affect normal Psych Narrative: Very pleasant interacts appropriately Weight / BMI Weight Weight: 120.338 kg Body Mass Index (BMI) 47.0 ABG / Lab / Microbiology Data 08/10/23 06:28 08/10/23 06:28 Laboratory: Laboratory Results - last 24 hr 08/10/23 06:28: WBC 3.1 L, RBC 3.68 L, Hgb 11.7 L, Hct 34.8 L, MCV 94.6, MCH 31.8, MCHC 33.6, RDW Std Deviation 44.2 H, RDW Coeff of Delmy 13.0, Plt Count 227, MPV 8.4, Immature Gran % (Auto) 1.300 H, Neut % (Auto) 51.7, Lymph % (Auto) 33.8, [place] % (Auto) 10.3 H, Eos % (Auto) 2.6, Baso % (Auto) 0.3, Absolute Neuts (auto) 1.6 L, Absolute Lymphs (auto) 1.05, Nucleated RBC % 0, Sodium 140, Potassium 3.6, Chloride 105, Carbon Dioxide 30.0, Anion Gap 5, BUN 13, Creatinine 1.06 H, Estim Creat Clear Calc 74.03, Est GFR (MDRD) Af Amer 69, Est GFR (MDRD) Non-Af 57 L, BUN/Creatinine Ratio 12.3, Glucose 86, Calcium 8.7 Microbiology: Microbiology 08/09/23 10:30 Sputum, Expectorated/Coughed Respiratory Culture - Preliminary Streptococcus agalactiae (B) 08/08/23 Unknown Mucosa - Nasopharyngeal Respiratory Panel (PCR) - Final Influenza A (Subtype H1) 08/09/23 10:15 Nasal Secretion MRSA (PCR) - Final 08/08/23 18:35 Nasal Secretion SARS-CoV-2 Antigen (Rapid) - Final ABG: ABG 08/09/23 23:15 Specimen Type GILL Sample Site Not entered VBG pH 7.44 H VBG pO2 50 H VBG HCO3 32 H VBG Total CO2 33 VBG O2 Sat (Calc) 86 H VBG Base Excess 8 H POC Mix VBG pCO2 Pt Tmp 46.4 O2 Delivery Device Not entered Radiography Diagnostic Testing: Radiology Impression Echocardiogram 08/08/23 20:43 Interpretation Summary The estimated ejection fraction is 60 %. No evidence for diastolic dysfunction. Ordering Physician: John Paul Trujillo Referring Physician: Handy Mike Performed By: Carolina Armas RDCS, RVT Meaningful Use Info Meaningful Use Diagnoses (Choose all that apply): None applicable Discharge Plan Admission Admit Date/Time: 08/08/23 18:04 Primary Reason for Your Visit: Shortness of breath/hypoxia Attending Provider: Kalina Caicedo Primary Care Provider: Handy Mike Consulting Providers: Pankaj Gutierrez; Ambrosio Snow; Ashu Martel; Tae Daigle; Glenny Mandujano; Benitez Goodman; Astrid Galindo; Martha Dangelo; Josse Ramos; Kalia Perkins; Dada Montes De Oca; Tim Bosch; John Paul Trujillo Instructions Additional Instructions / Restrictions: 1. Your INR was subtherapeutic on admission at 1.6. On discharge it was 1.7 . We are bridging you with enoxaparin until you have 2 consecutive therapeutic INR is at which time we can stop the enoxaparin and just continue your Coumadin. Please have your INR checked on 08/12/2023. 2. Please call on Saturday to schedule a follow-up appointment with pulmonary medicine as noted below. Discharge Orders/Prescriptions Prescriptions: New enoxaparin 120 mg/0.8 mL Syringe 120 mg subcut Q12@0600,1800 Qty: 8 0RF levofloxacin 750 mg Tablet 750 mg PO DAILY@0600 Qty: 5 0RF Continued warfarin 4 mg tablet 4 mg PO MO warfarin 6 mg tablet 6 mg PO SUTUWETHFRSA fluoxetine 20 MG capsule 60 mg PO DAILY propranolol 20 mg Tablet 40 mg PO DAILY ondansetron 4 MG tablet 4 mg PO Q8H PRN PRN (Reason: Nausea) Qty: 10 0RF ondansetron 4 mg tablet,disintegrating 4 mg PO TID PRN (Reason: nausea and vomiting) Qty: 21 0RF albuterol sulfate [Ventolin HFA] 90 mcg/actuation HFA aerosol inhaler 2 puff inhalation Q4H PRN PRN (Reason: Wheezing/SOB) Qty: 1 0RF codeine-guaifenesin 10-100 mg/5 mL liquid 5 ml PO 4X/DAY PRN PRN (Reason: cough) 7 Days Qty: 140 0RF furosemide 20 mg tablet 20 mg PO DAILY Patient Comments: Take 1 tablet by mouth daily. Slow Release Iron 140 mg (45 mg iron) tablet extended release 140 mg PO DAILY Patient Comments: Take 1 tablet by mouth twice daily with meals. benzonatate 100 mg capsule 100 mg PO TID PRN (Reason: cough) Qty: 21 0RF Referrals / Follow Up: Ambrosio Snow MD [Med Staff - Active Staff] - See Referral Note (Call on Saturday to set up an appointment to be seen within the next 2 to 4 weeks) Handy Mike DO [Primary Care Provider] - Within 2 Weeks Disposition Disposition (needs filled in before D/C Order can be placed): Home, Self Care Charges/Coding Visit Charges Inpatient E&M: 59652 Disch Hosp >30min
[2023-08-10 11:12] LABS: International Normalized Ratio 1.7; Prothrombin Time (Protime)PT. 19.8 SECONDS (11.7-14.9)
--- NOTE | 2023-08-10 12:47 | CASEMGMT ---
Social Work SW gave pt resources for prescriptions and self pay status, including [facility]breu, [facility] [employer], [facility], and prescription assistance programs. Pt already aware of the [facility] assist, and [place] [place] No further social service needs anticipated at this time. IRIS Gallego
--- NOTE | 2023-08-10 12:47 | CASEMGMT ---
Pt preferred pharmacy is [facility]. Pt is being DC home with Lovenox (pt states that she is comfortable and is educated on how to do this). [facility] called at this time and [facility] pharmacist states the medication will cost 700$ d/t no insurance/ Rx coverage. RN CM to pt room and pt states that she would be interested in the Rx [facility] here. [facility] Retail pharmacy notified. TC to [facility] Retail pharmacy and they were able to receive the Lovenox Rx for the pt and confirmed the pt can use the program and that they will be delivering the medication to the pt bedside. Pt RN notified.
[2023-08-10 13:27] VITALS: BP 115/64; PULSE 75; RESP 15; TEMP 36.4; O2SAT 96
== END 2023-08-10 13:48 | disposition home or self-care (01) | DRG 194 ==
LOC: ED 18:22 → PCU 18:45
PROVIDERS: Internal Medicine Critical Care Medicine; Physician Assistant; Admitting Provider Internal Medicine; Emergency Provider Student in an Organized Health Care Education/Training Program; PCP Student in an Organized Health Care Education/Training Program; Visit Provider Internal Medicine
DX: J10.00 Influenza due to other identified influenza virus with unspecified type of pneumonia (principal); D68.2 Hereditary deficiency of other clotting factors; Z68.42 Body mass index [BMI] 45.0-49.9, adult; E66.01 Morbid (severe) obesity due to excess calories; F32.A Depression, unspecified; J18.9 Pneumonia, unspecified organism; F41.9 Anxiety disorder, unspecified; G43.909 Migraine, unspecified, not intractable, without status migrainosus; E87.6 Hypokalemia; R09.02 Hypoxemia; Z91.148 Patient's other noncompliance with medication regimen for other reason; T50.1X6A Underdosing of loop [high-ceiling] diuretics, initial encounter; T45.516A Underdosing of anticoagulants, initial encounter; Z79.01 Long term (current) use of anticoagulants; Z11.52 Encounter for screening for COVID-19; Z86.718 Personal history of other venous thrombosis and embolism
CPT/HCPCS: 36415; 71275; 80048; 82803; 83880; 84484; 85025; 85610; 87070; 87077; 87186; 87205; 87633; 87641; 87811; 93005; 93306; 94640; 94668; 97802; 99252; 99285; J7030; Q9957; Q9967; A4216; C8929; G0463; J1940

== ENCOUNTER 2025-03-14 13:09 | Emergency (ER) | payer BC, SELFPAY ==
[2025-03-14 13:10] VITALS: BP 146/83; PULSE 78; RESP 15; TEMP 36.2; O2SAT 98; BMI 51.5
--- NOTE | 2025-03-14 13:40 | EX.ED.DYSGE1 ---
HPI History of Present Illness Chief Complaint: Syncope [facility] Medical History Abnormal Pap smear of cervix Anxiety Chest pain DVT (deep venous thrombosis) Factor V deficiency Migraine Non-smoker SOB (shortness of breath) Home Medications ?Medication ?Instructions ?Recorded ?Last Taken ?Type warfarin 4 mg tablet 4 mg PO Saturday10/01/17 Unknown History warfarin 6 mg tablet 6 mg PO SUTUWETHFRSA factor 5 10/01/17 08/08/23 History fluoxetine 20 mg capsule 20 mg PO DAILY anxiety 09/05/20 Unknown History propranolol 20 mg tablet 40 mg PO DAILY 03/02/21 Unknown History ferrous sulfate 140 mg (45 mg 140 mg PO DAILY supplement 08/08/23 Unknown History iron) tablet,extended release (Slow Release Iron) furosemide 20 mg tablet 20 mg PO DAILY water pill 08/08/23 Unknown History fluoxetine 40 mg capsule 40 mg PO DAILY 03/14/25 Unknown History propranolol 40 mg tablet 40 mg PO DAILY 03/14/25 Unknown History warfarin 2 mg tablet mg PO 03/14/25 Unknown History Allergy/AdvReac Type Severity Reaction Status Date / Time codeine AdvReac Vomiting Verified 03/14/25 13:10 hydrocodone bitartrate (From AdvReac Pain in Verified 03/14/25 13:10 Vicodin) joints Family History Father Diabetes Congestive heart failure Asthma Mother Congestive heart failure Surgical History delivery delivered History of cholecystectomy Social History household members: none Smoking Status: Never smoker alcohol intake: never substance use type: does not use caffeine: Yes what type of physical activity do you participate in: walking seatbelt use: always do you feel safe at home: Yes additional social history: - [employer] EXAM Physical Exam Const Vital Signs: 03/14/25 13:10 03/14/25 13:46 03/14/25 13:46 Temperature 97.2 F L Temperature Source Temporal Pulse Rate 78 Respiratory Rate 15 Respiratory Effort Normal Normal Respiratory Depth Normal Respiratory Pattern Normal Normal Blood Pressure 146/83 H Blood Pressure Mean 104 Pulse Ox 98 Oxygen Delivery Method Room Air Room Air 10/05/25 14:45 03/14/25 15:00 03/14/25 16:47 Temperature 98.6 F Temperature Source Pulse Rate 69 64 78 Respiratory Rate 13 10 L 14 Respiratory Effort Respiratory Depth Respiratory Pattern Blood Pressure 115/53 L 111/62 124/70 H Blood Pressure Mean 70 76 88 Pulse Ox 97 99 100 Oxygen Delivery Method Room Air Room Air [facility] Narr[place] Medical decision making narrative: HISTORY OF PRESENT ILLNESS: Chief complaint: Syncope, head injury 55-year-old female history of DVT, factor V Leiden, migraine, anxiety presents after fall versus syncopal episode. Patient states she was spraying her house when she woke up on the ground. The patient denies syncope to me. She states she did not pass out however she did fall. Asked how she fell she states she was unsure. Show she fell down striking her head and elbow. Denies loss of consciousness after strike her head. Denies nausea. Denies any prodromal symptoms including headache, chest pain, shortness of breath, vomiting, abdominal pain REVIEW OF SYSTEMS: Pertinent positives: Fall, head injury, left elbow pain Pertinent negatives: Denies syncope PHYSICAL EXAM: Nursing triage notes reviewed, Vital signs reviewed Constitutional: please see [facility] HENT: MMM, no cephalhematoma, no obvious lacerations Eyes: Pupils equal round and reactive to light, Extraocular muscles intact Neck: No stridor, no JVD, full neck ROM Lungs: Clear to auscultation, No wheezing or rales. No increased work of breathing, no conversational dyspnea, no accessory muscle use, no nasal flaring. No respiratory distress noted Heart: Regular rate and rhythm, No murmurs, No rubs and No gallops, 2+ distal pulses (radial, femoral, posterior tibial) in all extremities Abdomen: Soft, there is no tenderness, rigidity, rebound or guarding, no obvious peritoneal signs, no palpable pulsatile abdominal masses, no auscultated abdominal bruit : No CVAT Extremities: No edema Neuro: No new focal neurological deficits, cranial nerves II through XII intact, 5/5 strength in all present extremities. Intact sensation to light touch in all present extremities, 2+ reflexes bilateral patella tendons. Skin: No rash or lesions noted MEDICAL DECISION MAKING: Chief Complaint: please see [facility] External records reviewed: Reviewed prior ED visits. No recent hospitalizations. Last hospitalization was noted from 2023 here and was [facility] via [facility] Factors affecting care: As per HPI Social determinants of health: none History obtained from others: none Consults: none [facility] Narrative: The patient was initially hemodynamically stable, afebrile and nontoxic-appearing. Exam without obvious focal neurologic deficits. No obvious cephalhematoma. No focal cardiopulmonary abnormalities I considered the following differential diagnosis: ICH, arrhythmia, anemia, electrolyte disturbance, ACS, hypercoagulable state, VTE Although there was a question of a if the patient passed out or not given her age, and medical comorbidities I did obtain a broad lab and imaging workup. I obtained broad lab and imaging evaluation to further determine if the patient was suffering from a life-threatening etiology. Initially treat the patient's pain with oral Tylenol ALL IMAGES (IF OBTAINED) HAVE BEEN PERSONALLY REVIEWED AND INTERPRETED BY MYSELF. Initial EKG showed normal sinus rhythm rate of 65, normal axis, normal intervals, no STEMI, no sign of ARVD, Brugada or WPW syndrome. Stable T wave version in V2 noted similar to prior EKG in July. High-sensitivity troponin is negative, no evidence of myocardial ischemia x 2 essentially ruling out ACS per [facility] high-sensitivity troponin protocol INR therapeutic CBC without leukocytosis, severe anemia, no thrombocytopenia. CMP without evidence of acute kidney injury, significant electrolyte abnormality, anion gap to suggest end organ hypo-perfusion, no evidence of metabolic acidosis with a normal bicarbonate, no evidence of hepatobiliary obstructive pathology. I have personally reviewed the patient's chest x-ray. Chest x-ray is unremarkable for pulmonary edema, pneumothorax, pneumonia or focal cardiopulmonary abnormality. X-ray of the left elbow read reviewed personally myself negative for acute fractures location CT scan of the brain is negative for ICH The synthesis of patient history, physical exam, labs images suggest no clear labs and radiology. Suspect the patient suffered mechanical fall rather than syncope given unremarkable labs and images. There is no obvious traumatic injury noted. INR was therapeutic. He is appropriate discharge home with a diagnosis of head contusion and elbow contusion. Strict return precautions were discussed. The patient and/or family, caregivers express understanding. The patient and/or family, caregivers agrees with the plan. Shared decision making: I will have a discussion with the patient and or visitors regarding risk/benefits of further testing or admission. They will be made aware of of the risk/benefits inherent in this decision they will be given the opportunity to voice understanding. Total critical care time today provided was at least 0 minutes. This excludes separately billable procedures. Critical care time (if documented) is secondary to the patient having high probability of clinically significant/life threatening deterioration in the patient's condition which required my urgent intervention. Impression: 1. Fall 2. Head trauma 3. History of chronic anticoagulation Dispo: Discharge home This note was generated with [employer] dictation software. It may contain incorrect words, spelling, and punctuation that were not noted in review of the chart prior to signing. Lab Data Labs: Laboratory Results - last 24 hr 03/14/25 03/14/25 03/14/25 13:42 13:45 15:34 WBC 6.4 RBC 4.25 Hgb 14.2 Hct 39.1 MCV 92.0 MCH 33.4 H MCHC 36.3 H RDW Std Deviation 43.5 RDW Coeff of Delmy 13.0 Plt Count 152 MPV 8.2 PT 25.0 H INR 2.2 Sodium 142 Potassium 4.0 Chloride 103 Carbon Dioxide 26.0 Anion Gap 13 BUN 14 Creatinine 1.15 Estim Creat Clear Calc 71.71 Est GFR (MDRD) Non-Af 56 L BUN/Creatinine Ratio 11.9 Glucose 103 H Calcium 9.0 Total Bilirubin 1.04 AST 25 ALT 26 Alkaline Phosphatase 106 H Troponin T High Sens < 6 Troponin T Hi Sens 2 Hr < 6 Total Protein 6.7 Albumin 3.7 Globulin 3.0 Albumin/Globulin Ratio 1.3 POC Glucose 93 Radiography Diagnostic Testing: Clinical Impression(s) from Imaging Studies Brain CT 03/14/25 13:51 IMPRESSION: No acute abnormality Reading Location: [facility] Elbow X-Ray 03/14/25 13:51 IMPRESSION: No acute fracture or dislocations. No significant degenerative changes. Minimal anterior fat pad displacement may reflect minimal joint effusion. No acute soft tissue abnormalities. No radiographic foreign body. Reading Location: [facility] Chest X-Ray 03/14/25 13:53 IMPRESSION: No focal consolidations.Mild cardiomegaly. Reading Location: [facility] Discharge Plan Triage Chief Complaint: Syncope Other Complaint: Head Injury ED Provider: Joseph So Dx/Rx/DC Orders Instructions: ED Concussion, ED Contusion, Elbow Prescriptions: No Action warfarin 4 mg tablet 4 mg PO MO warfarin 6 mg tablet 6 mg PO SUTUWETHFRSA fluoxetine 20 MG capsule 20 mg PO DAILY propranolol 20 mg Tablet 40 mg PO DAILY fluoxetine 40 mg capsule 40 mg PO DAILY propranolol 40 mg tablet 40 mg PO DAILY warfarin 2 mg tablet PO furosemide 20 mg tablet 20 mg PO DAILY Patient Comments: Take 1 tablet by mouth daily. Slow Release Iron 140 mg (45 mg iron) tablet extended release 140 mg PO DAILY Patient Comments: Take 1 tablet by mouth twice daily with meals. Primary Care Provider: Handy Mike Referrals: Handy Mike DO [Primary Care Provider, Medical] Activity Restrictions/Additional Instructions: Thank you for trusting us with your care today! Your labs and images are reassuring. No sign of heart damage. Your warfarin level was within normal range. The imaging of your head and elbow were negative for acute traumatic injuries Please take Tylenol (2 pills, 650 mg) every 6 hours as needed for pain and fever control. Please return to the emergency department if your symptoms change or worsen. Please follow with your primary care physician for further outpatient evaluation and management. Print Language: Gabonese Disposition Disposition: Home, Self Care Discharge Date/Time: 03/14/25 17:25
--- NOTE | 2025-03-14 13:51 | EKG12_ITS ---
Test Reason : ARRYTH Blood Pressure : */* mmHG Vent. Rate : 65 BPM Atrial Rate : 65 BPM P-R Int : 122 ms QRS Dur : 76 ms QT Int : 440 ms P-R-T Axes : 18 16 42 degrees QTcB Int : 457 ms Normal sinus rhythm Nonspecific ST and T wave abnormality Abnormal ECG Confirmed by JAGDISH PAUL MD ([id number]), staff editor VERONICA LIN ([id number]) on 03/15/2025 8:38:25 AM Referred By: Confirmed By: JAGDISH PAUL MD
--- NOTE | 2025-03-14 13:51 | RAD_ITS ---
PROCEDURE: ELBOW MIN 3 VIEWS 03/14/2025 REASON FOR EXAM: LEFT ELBOW PAIN AFTER FALL TECHNIQUE: Procedure Code: RADLULÚ Modality: DX Procedure: ELBOW MIN 3 VIEWS COMPARISON: None RAD/Elbow min 3 Views IMPRESSION: No acute fracture or dislocations. No significant degenerative changes. Minimal anterior fat pad displacement may reflect minimal joint effusion. No acute soft tissue abnormalities. No radiographic foreign body. Reading Location: [id number]
--- NOTE | 2025-03-14 13:51 | CT_ITS ---
PROCEDURE: BRAIN/HEAD WITHOUT CONTRAST 03/14/2025 REASON FOR EXAM: FALL,HEAD TRAUMA TECHNIQUE: Procedure Code: CTBR Modality: CT Procedure: BRAIN/HEAD WITHOUT CONTRAST Coronal and Sagittal reconstruction series were provided. One or more dose reduction techniques were used (e.g., Automated exposure control, adjustment of the mA and/or kV according to patient size, use of iterative reconstruction technique. COMPARISON: 09/13/2022 FINDINGS: Normal brainstem. Normal cerebellum. No intracranial mass. No intracranial hemorrhage or edema. No hydrocephalus. Sinuses are clear. CT/Brain/Head without Contrast IMPRESSION: No acute abnormality Reading Location[facility] [place]
--- NOTE | 2025-03-14 13:53 | RAD_ITS ---
PROCEDURE: CHEST 1 VIEW (PORTABLE) 03/14/2025 REASON FOR EXAM: QUESTIONABLE SYNCOPE TECHNIQUE: Frontal view of the chest. COMPARISON: None FINDINGS: No focal consolidation. No pleural effusion or pneumothorax. Mild cardiomegaly. No acute fractures. RAD/Chest 1 View (Portable) IMPRESSION: No focal consolidations.Mild cardiomegaly. Reading Location: [id number]
--- OUTSIDE RECORDS SUMMARY | 2025-03-14 14:01 | XMS RPT_ITS | CCD ---
Author Organization [facility] Care Team Providers Care Idea Worker Name Role Phone Handy Mike DO Primary Care Provider Dr. Handy Mike Primary Care Provider Dr. Handy Mike Referring Provider ROSARIO Bazzi Attending Provider Dr. David Mo Emergency Provider Dr. John Paul Trujillo Admit Provider Dr. John Paul Trujillo Attending Provider Dr. John Paul Trujillo Other Provider Handy Mike DO Primary Care Provider Dr. Didi Delatorre Attending Provider Dr. Pankaj Gutierrez Other Provider [phone] Dr. Ambrosio Snow Attending Provider Dr. Amrbosio Snow Other Provider Dr. Ashu Martel Other Provider Dr. Tae Daigle Other Provider Dr. Glenny Mandujano Other Provider Dr. Benitez Goodman Other Provider Dr. Astrid Galindo Other Provider Dr. Martha Dangelo Other Provider Unavailable Dr. Josse Ramos Other Provider Dr. Kalia Perkins Other Provider Dr. Dada Montes De Oca Other Provider Dr. Tim Bosch Other Provider Dr. Kalina Caicedo Other Provider Dr. Kalina Caicedo [facility]ending [facility] Primary Care Unavailable Red Martin Attending Unavailable Pankaj Gutierrez Consulting Unavailable Tereletsky, John Paul Admitting Unavailable Mike, Handy Primary Care Unavailable Kalina Caicedo Attending Unavailable Ambrosio Snow Consulting Unavailable Ashu Martel Consulting Unavailable Pilo, Tae Consulting Unavailable Habtegebriel, Glenny Consulting Unavailab le Dand, Benitez Consulting Unavailable Mateo, Astrid Consulting Unavailable Aljundi, Lamia Consulting Unavailable Irukulla, Josse Consulting Unavailable Gregorio, Kalia Consulting Unavailable Tavon, Dada Consulting Unavailable Tim Bosch Consulting Unavailable John Paul Trujillo Consulting Unavailable Didi Delatorre Attending Unavailabl e Mike, Handy Primary Care Unavailable Pankaj Gutierrez Consulting Unavailable John Paul Trujillo Admitting Unavailable Kalina Caicedo Referring Unavailable Mike, Handy Primary Care Unavailable Ambrosio Snow Attending Unavailable Ambrosio Snow Consulting Unavailable Tamara Martelk Consulting Unavailable Pilo, Tae Consulting Unavailable Habtegebriel, Glenny Consulting Unavailab le Dand, Benitez Consulting Unavailable Mateo, Astrid Consulting Unavailable Aljundi, Lamia Consulting Unavailable Irukulla, Josse Consulting Unavailable Gregorio, Kalia Consulting Unavailable Tavon, Dada Consulting Unavailable Tim Bosch Consulting Unavailable John Paul Trujillo Consulting Unavailable Kalina Caicedo Consulting Unavailable John Paul Trujillo Attending Unavailable Kalina Caicedo Attending Unavailable Mike, Handy Primary Care Unavailable Mike, Handy Referring Unavailable Ammon Bazzi Attending Unavailable Julian DIAMOND PICKER.SODA COLUMN OPERATOR, Cynthia Aguilera Unavailable Amina DIAMOND PICKER.Jimmie SOMMER Unavailable Jesusita DIAMOND PICKER.Ursula SOMMER Unavailable HANDY MIKE Referring Unavailable HANDY MIKE Primary Care Unavailable URSULA MC Attending Unavailable HANDY MIKE Primary Care Unavailable URSULA MC Referring Unavailable HANDY MIKE Primary Care Unavailable URSULA MC Referring Unavailable HANDY MIKE Primary Care Unavailable JIMMIE CARLOS Referring Unavailable MIKE HANDY Louise Primary Care Unavailable JIMMIE CARLOS Referring Unavailable HANDY MIKE Primary Care Unavailable CYNTHIA JORDAN Referring Unavailabl e HANDY MIKE Primary Care Unavailable URSULA MC Attending Unavailable RASHID HANDY Louise Primary Care Unavailable URSULA MC Referring Unavailable HANDY MIKE Primary Care Unavailable Allergies Allergy Classification Reported Allergen(s) Allergy Type Date of Onset Reaction(s) Facility (20 sources) Acetaminophen / HYDROcodone; Translations: [HYDROCODONE-ACET AMINOPHEN] Drug Allergy 8 GI Upset [facility] Work Phone: (20 sources) [id number] [id number]; Translations: [[id number]] Propensity to adverse reactions 8 Shortness of Breath [facility] Work Phone: (4 sources) Codeine Drug Allergy 3 Vomiting [facility] (5 sources) HYDROcodone; Translations: [hydrocodone bitartrate] Drug Allergy 3 Pain in joints [facility] (20 sources) topiramate; Translations: [TOPIRAMATE] Drug Allergy 4 Other: See Comments [facility] Work Phone: (1 source) Codeine Drug Allergy 4 [facility] Repository Medications Current Medications Medication Drug Class(es) Dates Sig (Normalized) Sig (Original) benzonatate 100 mg oral capsule (4 sources) Non-narcotic Antitussive Start: 05-04-2023 End: 08-10-2023 take 100 mg by mouth three times daily Benzonatate Active 100 MG PO THREE TIMES A DAY August 10, 2023 10:26am busPIRone hydrochloride 7.5 mg oral tablet (20 sources) Start: 01-09-2023 take 1 tablet by mouth at bedtime as needed busPIRone (BUSPAR) 7.5 mg tablet Indications: Situational insomnia Take 1 tablet by mouth at bedtime as needed (INSOMNIA). 30 tablet 1 01/09/2023 Active Start: 10-04-2021 End: 2023 take 1 tablet by mouth at bedtime as needed busPIRone (BUSPAR) 7.5 mg tablet Indications: Situational insomnia Take 1 tablet by mouth at bedtime as needed (INSOMNIA). 30 tablet 1 10/04/2021 2023 Discontinued Comment on above: Take 1 tablet by angie th at bedtime as needed (INSOMNIA). cholecalciferol 0.01 mg oral capsule (20 sources) Vitamin D cholecalciferol, vitamin D3, 10 mcg (400 unit) cap Take 400 Units by mouth once daily. Pt takes twice daily Active Comment on above: Take 400 Units by mo uth once daily. Pt takes twice daily codeine phosphate 2 mg/ml / guaiFENesin 20 mg/ml oral solution (3 sources) Opioid Agonist Start: 08-01-19 take 1 mL by mouth four times daily as needed Codeine-Guaifenesin Active 5 ML PO 4 TIMES DAILY NEEDED 140 7 August 01, 2023 2:02am 0.8 ml enoxaparin sodium 150 mg/ml prefilled syringe (1 source) Low Molecular Weight Heparin Start: 08-10-19 24 Enoxaparin Active 120 MG SC Q12@0600,1800 8 August 10, 2023 12:00am ferrous sulfate 140 mg extended release oral tablet (20 sources) Start: 08-19-19 End: 09-11-19 take 1 tablet by mouth twice daily at mealtime ferrous sulfate (SLOW FE) 140 mg (45 mg iron) TbER Indications: Fatigue, unspecified type , Hair loss , Anemia, unspecified type Take 1 tablet by mouth two times a day with meals. 60 tablet 5 09/10/2024 Active Start: 08-08-2023 take 1 tablet by angie th once daily Ferrous Sulfate (Slow Release Iron) 140 mg (45 mg iron) tablet extended release Active 140 MG PO DAILY August 08, 2023 12:00am Start: 08-07-2021 End: 03-09-2024 take 1 tablet by mouth twice daily at mealtime ferrous sulfate (SLOW FE) 140 mg (45 mg iron) TbER Indications: Fatigue, unspecified type , Hair loss , Anemia, unspecified type Take 1 tablet by mouth twice daily with meals. 60 tablet 5 08/17/2022 08/17/2023 Discontinued Comment on above: Take 1 tablet by angie th twice daily with meals. Take 1 tablet by angie th two times a day with meals. fluconazole 150 mg oral tablet (2 sources) Azole Antifungal Start: End: take 1 tablet by mouth every week fluconazole (DIFLUCAN) 150 mg tablet Indications: Intertrigo Take 1 tablet by mouth one time a week for 28 days. 4 tablet 01/06/2025 02/03/2025 Active Start: 12-17-2024 End: 12-17-2024 take 1 tablet by mouth once fluconazole (DIFLUCAN) 150 mg tablet Indications: Excoriation of groin, initial encounter , Candidiasis of skin Take 1 tablet by mouth one time only for 1 dose. 1 tablet 12/17/2024 12/17/2024 FLUoxetine 40 mg oral capsule (20 sources) Serotonin Reuptake Inhibitor Start: 07-01-2023 End: 06-26-2024 take 1 capsule by mouth once daily FLUoxetine (PROZAC) 20 mg capsule Indications: Generalized anxiety disorder Take 1 capsule by mouth once daily. Take with 40 mg capsule to total 60 mg a day 90 capsule 3 06/26/2024 Active Start: 07-01-2023 End: 07-08-2024 take 1 capsule by mouth once daily FLUoxetine (PROZAC) 40 mg capsule Indications: Generalized anxiety disorder Take 1 capsule by mouth once daily. 90 capsule 5 07/08/2024 Active Start: 08-07-2021 End: 06-29-2023 take 1 capsule by mouth once daily FLUoxetine (PROZAC) 20 mg capsule Indications: Generalized anxiety disorder Take 1 capsule by mouth once daily. Take with 40 mg capsule to total 60 mg a day 90 capsule 3 08/17/2022 06/29/2023 Discontinued Start: 08-07-2021 End: 06-29-2023 take 1 capsule by mouth once daily FLUoxetine (PROZAC) 40 mg capsule Indications: Generalized anxiety disorder Take 1 capsule by mouth once daily. 90 capsule 5 06/13/2022 06/29/2023 Discontinued Start: 09-05-2020 take 60 mg by mouth once daily Fluoxetine Active 60 MG PO DAILY September 04, 2020 11:00pm Start: 09-05-2020 take 50 mg by mouth once daily Fluoxetine Active 50 MG PO DAILY September 04, 2020 11:00pm Start: 02-03-2015 End: 11-10-2017 take 20 mg by mouth once daily Fluoxetine Discontinued 20 MG PO DAILY February 02, 2015 11:00pm November 10, 2017 11:00am Comment on above: Take 1 capsule by mo [facility] once daily. Take with 40 mg capsule to total 60 mg a day Take 1 capsule by mo [facility] once daily. furosemide 20 mg oral tablet (20 sources) Loop Diuretic Start: 12-17-2024 take 1 tablet by mouth once daily furosemide (LASIX) 20 mg tablet Indications: Bilateral leg edema Take 1 tablet by mouth once daily. 90 tablet 1 12/17/2024 Active Start: 08-19-2023 End: 12-17-2024 take 1 tablet by mouth twice daily furosemide (LASIX) 20 mg tablet Indications: Edema of right lower leg Take 1 tablet by mouth two times a day. 60 tablet 5 06/26/2024 12/17/2024 Discontinued Start: 08-08-2023 take 20 mg by mouth once daily Furosemide Active 20 MG PO DAILY August 08, 2023 12:00am Start: 07-01-2023 End: 08-17-2023 take 1 tablet by mouth twice daily furosemide (LASIX) 20 mg tablet Indications: Edema of right lower leg Take 1 tablet by mouth two times a day. 60 tablet 5 07/01/2023 08/17/2023 Discontinued Start: 08-07-2021 End: 06-29-2023 take 1 tablet by mouth twice daily furosemide (LASIX) 20 mg tablet Indications: Edema of right lower leg Take 1 tablet by mouth twice daily. 60 tablet 5 06/13/2022 06/29/2023 Discontinued Comment on above: Take 1 tablet by angie twice daily. Take 1 tablet by angie th two times a day. levoFLOXacin 750 mg oral tablet (1 source) Quinolone Antimicrobial Start: 08-10-19 take 750 mg by mouth once daily Levofloxacin Active 750 MG PO DAILY@0600 5 August 10, 2023 12:00am magnesium oxide 200 mg oral tablet (20 sources) magnesium oxide 200 mg magnesium tab Take by mouth. Pt takes twice daily Active Comment on above: Take by mouth. Pt ta kes twice daily omeprazole 20 mg delayed release oral capsule (20 sources) Proton Pump Inhibitor Start: 01-10-20 take 1 capsule by mouth once daily omeprazole (PRILOSEC) 20 mg capsule Take 1 capsule by mouth once daily. 30 capsule 5 01/09/2023 Active Start: 08-07-2021 End: 2023 take 1 capsule by mouth once daily omeprazole (PRILOSEC) 20 mg capsule Take 1 capsule by mouth once daily. 30 capsule 5 08/07/2021 2023 Discontinued Comment on above: Take 1 capsule by [facility] once daily. ondansetron 4 mg disintegrating oral tablet (11 sources) Serotonin-3 Receptor Antagonist Start: take 4 mg by mouth three times daily Ondansetron Active 4 MG PO THREE TIMES A DAY August 01, 2023 1:56am Start: 03-02-2021 take 4 mg by mouth e very eight hours as needed Ondansetron Active 4 MG PO EVERY 8 HOURS NEEDED March 01, 2021 11:00pm Start: 02-03-2015 End: 10-01-2017 take 4 mg by mouth every eight hours as needed Ondansetron Discontinued 4 MG PO EVERY 8 HOURS NEEDED February 02, 2015 11:00pm October 01, 2017 1:45pm phentermine hydrochloride 37.5 mg oral tablet (2 sources) Sympathomimetic Amine Anorectic Start: 01-16-2023 End: 02-15-2023 take 1 tablet by mouth once daily Phentermine HCl (ADIPEX-P) 37.5 mg tablet Indications: Obesity, Class III, BMI 40-49.9 (morbid obesity) (HCC) Take 1 tablet by mouth once daily for 30 days. BMI 46.38 30 tablet 0 01/16/2023 02/15/2023 Active Start: 10-16-2022 End: 11-15-2022 take 1 tablet by mouth once daily Phentermine HCl (ADIPEX-P) 37.5 mg tablet Indications: Obesity, Class III, BMI 40-49.9 (morbid obesity) (HCC) Take 1 tablet by mouth once daily for 30 days. BMI 47.89 30 tablet 2 10/16/2022 11/15/2022 Active Comment on above: Take 1 tablet by angie th once daily for 30 days. BMI 47.89 Take 1 tablet by angie th once daily for 30 days. BMI 46.38 propranolol hydrochloride 40 mg oral tablet (20 sources) beta-Adrenergic Epi Start: 07-01-2023 End: 09-10-2024 take 1 tablet by mouth once daily propranolol (INDERAL) 40 mg tablet Take 1 tablet by mouth once daily. 90 tablet 5 09/10/2024 Active Start: 08-07-2021 End: 06-29-2023 take 1 tablet by mouth once daily propranolol (INDERAL) 40 mg tablet TAKE 1 TABLET BY MOUTH DAILY 90 tablet 5 06/13/2022 06/29/2023 Discontinued Start: 03-02-2021 take 40 mg by mouth once daily Propranolol Active 40 MG PO DAILY March 01, 2021 11:00pm Start: 04-20-2013 End: 11-10-2017 take 20 mg by mouth once daily Propranolol Discontinue d 20 MG PO DAILY April 20, 2013 12:00am November 10, 2017 11:00am Comment on above: Take 1 tablet by angie th once daily. TAKE 1 TABLET BY ANGIE TH DAILY valACYclovir 1000 mg oral tablet (20 sources) Herpesvirus Nucleoside Analog DNA Polymerase Inhibitor, Herpes Simplex Virus Nucleoside Analog DNA Polymerase Inhibitor, Herpes Zoster Virus Nucleoside Analog DNA Polymerase Inhibitor Start: 3 End: 4 take 1 tablet by mouth three times daily valACYclovir (VALTREX) 1 gram tablet take 1 tablet by mouth three times a day for 7 days for herpes outbreaks 21 tablet 3 05/20/2024 Active Start: 08-07-2021 End: 2023 take 1 tablet by mouth three times daily valACYclovir (VALTREX) 1 gram take 1 tablet by mouth three times a day for 7 days for herpes outbreaks 21 tablet 3 08/07/2021 2023 Discontinued Comment on above: take 1 tablet by angie th three times a day for 7 days for herpes outbreaks Vitamin B Complex (20 sources) vitamin B comple x (B COMPLEX 1 ORAL) Take by mouth. Active vitamin B comple x (B COMPLEX 1 ORAL) Take by mouth. 0 Active Comment on above: Take by mouth. warfarin sodium 2 mg oral tablet (20 sources) Vitamin K Antagonist Start: 05-13-2024 End: 11-09-2024 warfarin (COUMADIN) 2 mg tablet Take 4 mg M-W-F and 6 mg all other days of the week (patient has 6 mg rx also) 60 tablet 2 11/09/2024 Active Start: 05-13-2024 warfarin (COUM NEERAJ) 6 mg tablet Indications: Factor V Leiden (HCC) Take 4 mg M-W-F and 6 mg all the other days of the week (patient will have 2 mg rx also) 60 tablet 2 05/13/2024 Active Start: 09-25-2023 End: 01-23-2025 warfarin (COUMADIN) 6 mg tab let Indications: Factor V Leiden (HCC) Take 1 tablet by mouth once daily. Take 1 and 1/2 tablets (6mg) by mouth once daily EXCEPT 1 tablet (4mg) SATURDAY 90 tablet 2 04/28/2024 05/12/2024 Discontinued Start: 10-01-2017 End: 09-25-2023 warfarin (COUMADIN) 4 mg tab let Take 1 and 1/2 tablets (6mg) by mouth once daily EXCEPT 1 tablet (4mg) SATURDAY 45 tablet 11 10/16/2022 09/25/2023 Discontinued Start: 02-03-2015 End: 10-01-2017 Warfarin Active 6 MG PO SUTU WETHSA September 30, 2017 11:00pm Start: 04-20-2013 End: 10-01-2017 Warfarin Discontinued 4 MG P O MOWE April 20, 2013 12:00am October 01, 2017 1:45pm Comment on above: Take 1 and 1/2 table ts (6mg) by mouth once daily EXCEPT 1 tablet (4mg) SATURDAY Take 1 tablet by angie once daily. Take 1 and 1/2 tablets (6mg) by mouth once daily EXCEPT 1 tablet (4mg) SATURDAY Completed/Discontinued Medications Medication Drug Class(es) Dates Sig (Normalized) Sig (Original) acetaminophen 325 mg / oxyCODONE hydrochloride 5 mg oral tablet (4 sources) Opioid Agonist Start: 02-03-2015 End: 10-01-2017 take 1 tablet by mouth every four hours as needed Oxycodone-Acetamin ophen Discontinued 1 - 2 TABLET PO EVERY 4 HOURS NEEDED February 02, 2015 11:00pm October 01, 2017 1:45pm [id number] 200 actuat albuterol 0.09 mg/actuat metered dose inhaler (20 sources) beta2-Adrenergic Agonist Start: 08-23-2023 End: 12-17-2024 take 2 puff(s) by inhalation every four hours as needed for wheezing albuterol HFA (PROAIR HFA) 90 mcg/actuation inhaler Indications: Cough , Bacterial pneumonia Inhale 2 Puffs as instructed every 4 hours as needed for wheezing/shortness of breath. 18 g 1 08/23/2023 12/17/2024 Discontinued (Discontinued by Patient) Start: 08-01-2023 take 1 puff(s) by in halation every four hours as needed Albuterol Sulfate (Ventolin Hfa) 90 mcg/actuation HFA aerosol inhaler Active 2 PUFF INHALATION EVERY 4 HOURS NEEDED August 01, 2023 12:00am Comment on above: Inhale 2 Puffs as in structed every 4 hours as needed for wheezing/shortness of breath. azithromycin 250 mg oral tablet (3 sources) Macrolide Antimicrobial Start: 2022 End: 2023 Azithromycin Discontinued 0 PO .COMPLEX 6 May 04, 2023 12:00am August 08, 2023 9:05pm For 250 mg dose pack: take 500 mg today (day 1), then 250 mg for 4 days (days 2-5) PO 12 hr buPROPion hydrochloride 150 mg extended release oral tablet (20 sources) Aminoketone Start: 2023 End: 2024 take 1 tablet by mouth twice daily buPROPion SR (WELLBUTRIN SR) 150 mg 12 hr tablet Indications: Obesity, Class III, BMI 40-49.9 (morbid obesity) (HCC) , Generalized anxiety disorder Take 1 tablet by mouth two times a day. 60 tablet 5 07/17/2023 12/17/2024 Discontinued (Discontinued by Patient) Comment on above: Take 1 tablet by angie th two times a day. cephalexin 500 mg oral capsule (4 sources) Cephalosporin Antibacterial Start: 2018 End: 2018 take 1 capsule by mouth twice daily Cephalexin (Keflex) 500 mg capsule Discontinued 500 MG PO TWICE A DAY July 06, 2018 12:00am August 15, 2018 10:35am cetirizine hydrochloride 10 mg oral tablet (16 sources) Histamine-1 Receptor Antagonist Start: 2022 End: 2022 take 1 tablet by mouth once daily for congestion cetirizine (ZYRTEC) 10 mg tablet Take 1 tablet by mouth once daily. For congestion 90 tablet 1 01/09/2023 04/15/2023 Discontinued Start: 06-25-2022 End: 2023 take 1 tablet by mouth once daily for congestion cetirizine (ZYRTEC) 10 mg tablet Take 1 tablet by mouth once daily. For congestion 90 tablet 1 06/25/2022 2023 Discontinued Comment on above: Take 1 tablet by angie once daily. For congestion ciprofloxacin 500 mg oral tablet (2 sources) Quinolone Antimicrobial Start: 12-19-19 End: 12-26-19 take 1 tablet by mouth twice daily ciprofloxacin HCl (CIPRO) 500 mg tablet Indications: UTI due to Klebsiella species Take 1 tablet by mouth two times a day for 7 days. 14 tablet 12/18/2024 12/25/2024 Start: 05-28-2022 End: 06-02-2022 take 1 tablet by mouth twice daily ciprofloxacin HCl (CIPRO) 250 mg tablet Indications: Burning with urination , Acute low back pain without sciatica, unspecified back pain laterality , Acute cystitis with hematuria Take 1 tablet by mouth twice daily for 5 days. 10 tablet 0 05/28/2022 06/02/2022 Active Comment on above: Take 1 tablet by angie twice daily for 5 days. 12 hr dextromethorphan hydrobromide 60 mg / guaiFENesin 1200 mg extended release oral tablet (4 sources) Uncompetitive O-ehmzvi-K-aspartate Receptor Antagonist, Sigma-1 Agonist Start: 2017 End: 2018 take 60-1200 mg by mouth every twelve hours Dextromethorphan-Gua ifenesin (Mucinex Dm) 60-1,200 mg tablet extended release 12 hr Discontinued 1 TABLET PO Q12H November 09, 2017 11:00pm July 06, 2018 10:06am take with full glass of water. levonorgestrel 0.504949 mg/hr intrauterine system (4 sources) Progestin, Progestin-containing Intrauterine Device Start: 2017 End: 2018 Levonorgestrel (Mirena) 20 mcg/24 hr (5 years) intrauterine device Discontinued 1 INSERT INTRA-UTER ONCE September 30, 2017 11:00pm August 15, 2018 10:35am loratadine 10 mg oral tablet (10 sources) Start: 2022 End: 2023 take 1 tablet by mouth once daily for congestion loratadine (CLARITIN) 10 mg tablet Take 1 tablet by mouth once daily. For congestion. 30 tablet 2 04/15/2023 07/14/2023 Comment on above: Take 1 tablet by angie once daily. For congestion. molnupiravir 200 mg capsule (4 sources) Start: 2022 End: 2022 take 4 capsules by mouth twice daily molnupiravir 200 mg capsule Indications: COVID-19 Take 4 capsules by mouth two times a day for 5 days. 40 capsule 0 05/08/2023 05/13/2023 Start: 05-08-2023 End: 05-13-2023 take 4 capsules by mouth twice daily molnupiravir 200 mg capsule Indications: COVID-19 Take 4 capsules by mouth two times a day for 5 days. 40 capsule 0 05/08/2023 05/13/2023 Active Comment on above: Take 4 capsules by out two times a day for 5 days. nirmatrelvir tablet 300 mg (150 mg x 2) and ritonavir tablet 100 mg in a dose pack (PAXLOVID) (3 sources) Start: 05-08-2023 End: 05-13-2023 nirmatrelvir tablet 300 mg (150 mg x 2) and ritonavir tablet 100 mg in a dose pack (PAXLOVID) Administer TWO pink nirmatrelvir 150 mg tablets and ONE white ritonavir 100 mg tablet for a total of three tablets twice daily. 30 tablet 0 05/08/2023 05/13/2023 Start: 05-08-2023 End: 05-13-2023 nirmatrelvir tablet 300 mg ( 150 mg x 2) and ritonavir tablet 100 mg in a dose pack (PAXLOVID) Administer TWO pink nirmatrelvir 150 mg tablets and ONE white ritonavir 100 mg tablet for a total of three tablets twice daily. 30 tablet 0 05/08/2023 05/13/2023 Active Comment on above: Administer TWO pink nirmatrelvir 150 mg tablets and ONE white ritonavir 100 mg tablet for a total of three tablets twice daily. nystatin [id number] unt/ml / triamcinolone acetonide 1 mg/ml topical cream (4 sources) Polyene Antifungal, Corticosteroid Start: 12-18-19 End: 01-17-20 nystatin-triamcinolo ne (MYCOLOG II) cream Indications: Excoriation of groin, initial encounter , Candidiasis of skin Apply to affected area two times a day. Abdominal fold and groin twice daily x 14 days and as needed after that 15 g 1 12/17/2024 12/28/2024 Discontinued topiramate 50 mg oral tablet (11 sources) Start: 04-15-20 End: 07-17-19 take 1 tablet by mouth twice daily topiramate (TOPAMAX) 50 mg tablet Indications: Obesity, Class III, BMI 40-49.9 (morbid obesity) ([facility]) , Migraine, unspecified, without mention of intractable migraine without mention of status migrainosus Take 1 tablet by mouth two times a day. 60 tablet 2 04/15/2023 07/17/2023 Discontinued Comment on above: Take 1 tablet by angie th two times a day. triamcinolone acetonide 1 mg/ml topical cream (15 sources) Corticosteroid Start: 01-17-20 End: 08-08-19 triamcinolone acetonide (KENALOG) 0.1 % cream Indications: Irritant contact dermatitis, unspecified trigger Apply 1 application to affected area three times daily. Apply sparingly to area for rash/itching. 15 g 1 01/16/2023 08/08/2023 Discontinued Comment on above: Apply 1 application to affected area three times daily. Apply sparingly to area for rash/itching. Problems Active Problems Problem Classification Problem Date Documented Date Episodic/Chronic Allergic reactions (1 source) Irritant contact dermatitis; Translations: [Irritant contact dermatitis, unspecified cause] 01-16-2023 Episodic Anxiety disorders (20 sources) Generalized anxiety disorder; Translations: [Generalized anxiety disorder] Onset: 11-05-2008 01-16-2010 Chronic Aortic and peripheral arterial embolism or thrombosis (20 sources) Vascular disorder; Translations: [Embolism and thrombosis of unspecified artery] Onset: 05-21-2008 01-16-2010 Chronic Bacterial infection; unspecified site (1 source) Other specified bacterial agents as the cause of diseases classified elsewhere; Translations: [UTI due to Klebsiella species] Onset: 12-28-2024 Episodic Blindness and vision defects (4 sources) Blurring of visual image; Translations: [Other visual disturbances] 11-27-2015 Episodic Chronic obstructive pulmonary disease and bronchiectasis (12 sources) Bronchitis; Translations: [Bronchitis, not specified as acute or chronic] Onset: 10-04-2023 10-18-2018 Episodic Coagulation and hemorrhagic disorders (20 sources) Factor V Leiden mutation; Translations: [Activated protein C resistance] Onset: 06-01-2008 Chronic Conditions associated with dizziness or vertigo (4 sources) Lightheadedness; Translations: [Dizziness and giddiness] 11-27-2015 Episodic Deficiency and other anemia (1 source) Other iron deficiency anemias; Translations: [Iron deficiency anemia secondary to inadequate dietary iron intake] Onset: 12-17-2024 Episodic Disorders of lipid metabolism (4 sources) Dyslipidemia; Translations: [Hyperlipidemia, unspecified] Onset: 12-23-2024 Chronic E Codes: Fall (4 sources) Fall; Translations: [Unspecified fall, initial encounter] 09-13-2022 Episodic Esophageal disorders (1 source) Gastroesophageal reflux disease without esophagitis; Translations: [Gastro-esophageal reflux disease without esophagitis] 01-16-2023 Chronic Fluid and electrolyte disorders (7 sources) Mild dehydration; Translations: [Dehydration] 03-10-2021 Episodic Genitourinary symptoms and ill-defined conditions (7 sources) Scalding pain on urination ; Translations: [Dysuria] Onset: 12-17-2024 Episodic Headache; including migraine (20 sources) Migraine; Translations: [Migraine, unspecified, not intractable, without status migrainosus] 01-16-2010 Chronic Influenza (6 sources) Influenza due to Influenza A virus; Translations: [Influenza due to other identified influenza virus with other respiratory manifestations] Onset: 09-16-2023 08-01-2023 Episodic Menstrual disorders (20 sources) Menorrhagia; Translations: [Excessive and frequent menstruation with regular cycle] Onset: 10-14-2014 10-14-2014 Chronic Miscellaneous mental health disorders (20 sources) Insomnia; Translations: [Other insomnia not due to a substance or known physiological condition] Onset: 10-06-2021 Chronic Mycoses (1 source) Candidiasis of skin; Translations: [Candidiasis of skin and nail] 12-17-2024 Episodic Nutritional deficiencies (20 sources) Vitamin D deficiency; Translations: [Vitamin D deficiency, unspecified] Onset: 01-17-2016 01-17-2016 Chronic Open wounds of head; neck; and trunk (4 sources) Laceration of lip ; Translations: [Laceration without foreign body of lip, initial encounter] 09-13-2022 Episodic Other aftercare (1 source) Post-discharge follow-up; Translations: [Encounter for follow-up examination after completed treatment for conditions other than malignant neoplasm] 08-14-2023 Episodic Other aftercare (1 source) Drug therapy finding; Translations: [prison (current) use of anticoagulants] 11-05-2024 Episodic Other aftercare (2 sources) prison (current) use of anticoagulants; Translations: [Anticoagulated on Coumadin] Onset: 11-07-2024 Episodic Other aftercare (1 source) Encounter for follow-up examination after completed treatment for conditions other than malignant neoplasm; Translations: [Hospital discharge follow-up] Onset: 12-17-2024 Episodic Other connective tissue disease (1 source) Swelling of lower limb; Translations: [Other specified soft tissue disorders] 08-08-2023 Episodic Other female genital disorders (20 sources) Abnormal uterine bleeding; Translations: [Abnormal uterine and vaginal bleeding, unspecified] Onset: 10-14-2014 10-14-2014 Chronic Other inflammatory condition of skin (1 source) Intertrigo; Translations: [Erythema intertrigo] 01-06-2025 Episodic Other injuries and conditions due to external causes (4 sources) Injury of head; Translations: [Unspecified injury of head, initial encounter] 09-09-2020 Episodic Other liver diseases (2 sources) Steatosis of liver; Translations: [Fatty (change of) liver, not elsewhere classified] Chronic Other liver diseases (2 sources) Alkaline phosphatase raised; Translations: [Abnormal levels of other serum enzymes] Episodic Other lower respiratory disease (6 sources) Cough; Translations: [Subacute cough] 05-13-2023 Episodic Other lower respiratory disease (3 sources) Hypoxia; Translations: [Hypoxemia] 08-08-2023 Episodic Other lower respiratory disease (3 sources) Hypoxemia; Translations: [Hypoxemia] Onset: 09-16-2023 08-08-2023 Episodic Other lower respiratory disease (3 sources) Dyspnea; Translations: [Shortness of breath] 08-08-2023 Episodic Other lower respiratory disease (2 sources) Shortness of breath; Translations: [Shortness of breath] Onset: 09-16-2023 08-10-2023 Episodic Other nervous system disorders (20 sources) Idiopathic peripheral neuropathy; Translations: [Hereditary and idiopathic neuropathy, unspecified] Onset: 10-26-2016 10-26-2016 Chronic Other nervous system disorders (20 sources) Neuropathy; Translations: [Polyneuropathy, unspecified] Onset: 10-26-2016 10-26-2016 Chronic Other non-traumatic joint disorders (2 sources) Pain in right knee; Translations: [Pain in joint, lower leg] 04-15-2023 Episodic Other nutritional; endocrine; and metabolic disorders (20 sources) Body mass index 40+ - severely obese; Translations: [Morbid (severe) obesity due to excess calories] Onset: 07-16-2012 Resolved: 12-17-2024 07-16-2012 Chronic Other nutritional; endocrine; and metabolic disorders (1 source) Severe obesity; Translations: [Class 3 severe obesity with body mass index (BMI) of 50.0 to 59.9 in adult (FORMERLY [facility])] 12-17-2024 Chronic Other nutritional; endocrine; and metabolic disorders (1 source) Body mass index (BMI) 50.0-59.9, adult; Translations: [Class 3 severe obesity with body mass index (BMI) of 50.0 to 59.9 in adult (FORM[facility]LY [facility])] Onset: 12-23-2024 Chronic Other nutritional; endocrine; and metabolic disorders (1 source) Morbid (severe) obesity due to excess calories; Translations: [Morbid obesity with BMI of 40.0-44.9, adult (FORMERLY [facility])] Onset: 07-16-2012 Chronic Other nutritional; endocrine; and metabolic disorders (1 source) Body mass index (BMI) 40.0-44.9, adult; Translations: [Morbid obesity with BMI of 40.0-44.9, adult (FORM[facility]LY [facility])] Onset: 07-16-2012 Chronic Other screening for suspected conditions (not mental disorders or infectious disease) (20 sources) Patient encounter status; Translations: [Encounter for screening mammogram for malignant neoplasm of breast] Onset: 10-26-2016 Resolved: 12-17-2024 10-26-2016 Episodic Other upper respiratory infections (4 sources) Upper respiratory infection; Translations: [Acute upper respiratory infection, unspecified] 10-18-2018 Episodic Pneumonia (except that caused by tuberculosis or sexually transmitted disease) (7 sources) Pneumonia; Translations: [Pneumonia, unspecified organism] Onset: 09-16-2023 08-08-2023 Episodic Residual codes; unclassified (3 sources) Bilateral lower limb edema; Translations: [Localized edema] 08-08-2023 Episodic Residual codes; unclassified (3 sources) Localized edema; Translations: [Edema] Onset: 08-10-2023 08-10-2023 Episodic Residual codes; unclassified (1 source) FH: Thyroid disorder; Translations: [Family history of other endocrine, nutritional and metabolic diseases] 12-28-2024 Episodic Residual codes; unclassified (1 source) Family history of other endocrine, nutritional and metabolic diseases; Translations: [Family history of thyroid disease] Onset: 12-28-2024 Episodic Screening and history of mental health and substance abuse codes (1 source) Encounter for screening for depression; Translations: [Screening for depression] Onset: 12-17-2024 Episodic Spondylosis; intervertebral disc disorders; other back problems (1 source) Acute low back pain; Translations: [Acute low back pain without sciatica, unspecified back pain laterality] Episodic Superficial injury; contusion (20 sources) Contusion of foot; Translations: [Contusion of unspecified foot, initial encounter] 09-07-2020 Episodic Thyroid disorders (2 sources) Goiter; Translations: [Iodine-deficiency related diffuse (endemic) goiter] Onset: 12-28-2024 12-28-2024 Chronic Unclassified (1 source) Cough, unspecified; Translations: [Cough, unspecified] Onset: 09-16-2023 Unclassified (1 source) Patient encounter status 12-03-2024 Unclassified (1 source) Class 3 severe obesity with body mass index (BMI) of 50.0 to 59.9 in adult (FORM[facility]LY [facility]); Translations: [Class 3 severe obesity with body mass index (BMI) of 50.0 to 59.9 in adult ([facility])] Onset: 12-23-2024 Urinary tract infections (5 sources) Acute cystitis; Translations: [Acute cystitis with hematuria] Onset: 12-28-2024 Episodic Viral infection (13 sources) COVID-19; Translations: [Pneumonia due to COVID-19 virus] 03-02-2021 Episodic Past or Other Problems Problem Classification Problem Date Documented Da te Episodic/Chronic Deficiency and other anemia (2 sources) Nutritional anemia; Translations: [Vitamin B12 deficiency anemia, unspecified] Onset: 08-09-2015 08-09-2015 Episodic Deficiency and other anemia (20 sources) Anemia; Translations: [Anemia, unspecified] Onset: 08-09-2015 Episodic Deficiency and other anemia (6 sources) Iron deficiency anemia secondary to inadequate dietary iron intake; Translations: [Other iron deficiency anemias] Onset: 08-09-2015 12-17-2024 Episodic Malaise and fatigue (20 sources) Fatigue; Translations: [Other fatigue] Onset: 10-06-2021 Resolved: 12-17-2024 Episodic Menopausal disorders (20 sources) Menopausal symptom; Translations: [Menopausal and female climacteric states] Resolved: 10-14-2014 10-14-2014 Chronic Nutritional deficiencies (20 sources) Iron deficiency; Translations: [Iron deficiency] Onset: 06-25-2022 Episodic Osteoporosis (20 sources) Osteoporosis; Translations: [Age-related osteoporosis without current pathological fracture] Onset: 10-09-2010 Resolved: 07-16-2012 07-16-2012 Chronic Other aftercare (20 sources) Anticoagulant effect; Translations: [prison (current) use of anticoagulants] Onset: 07-16-2012 Episodic Other aftercare (20 sources) Long-term current use of anticoagulant; 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] Onset: 10-26-2016 10-26-2016 Episodic Other nutritional; endocrine; and metabolic disorders (20 sources) Cholesterol level - finding; Translations: [Lipoprotein deficiency] Onset: 07-16-2012 Resolved: 12-17-2024 07-16-2012 Chronic Other skin disorders (20 sources) Disorder of hand; Translations: [Disorder of the skin and subcutaneous tissue, unspecified] Onset: 07-16-2012 07-16-2012 Episodic Other skin disorders (20 sources) Loss of hair; Translations: [Nonscarring hair loss, unspecified] Onset: 10-06-2021 Episodic Ovarian cyst (20 sources) Cyst of ovary; Translations: [Unspecified ovarian cyst, unspecified side] Onset: 10-20-2014 10-20-2014 Episodic Phlebitis; thrombophlebitis and thromboembolism (20 sources) Deep venous thrombosis of upper extremity; Translations: [Acute embolism and thrombosis of deep veins of unspecified upper extremity] Resolved: 10-14-2014 10-14-2014 Episodic Residual codes; unclassified (20 sources) Edema of right lower leg; Translations: [Localized edema] Onset: 06-25-2022 Resolved: 12-17-2024 Episodic Sprains and strains (20 sources) Sprain of ankle; Translations: [Sprain of unspecified ligament of unspecified ankle, initial encounter] Onset: 07-30-2008 Resolved: 02-05-2015 02-05-2015 Episodic Unclassified (4 sources) Abrasion of lip, initial encounter 09-13-2022 Unclassified (4 sources) Contusion of right knee, initial encounter 09-13-2022 Varicose veins of lower extremity (20 sources) Varicose veins of lower extremity; Translations: [Varicose veins of bilateral lower extremities with other complications] Onset: 06-25-2022 Episodic Results Test Name Value Interpretation Reference Range Facility PT panel Coag (PPP)on 2024 INR Coag (PPP) [Relative time] 2.2 {INR} High 0.9-1.3 [facility] Comment on above: Order Comment: Speci men Type: BLOOD SPECIMEN Ordering Facility: [facility] Address: [address] [place] [address] Result Comment: Alissa min K Antagonist (VKA) Therapeutic Range: INR 2 to 3 (Target INR of 2.5) Note: For patients treated with VKA drugs, such as warfarin, the [employer] 2012 Guideline recommends a therapeutic INR range of 2 to 3 (target INR of 2.5). This recommendation includes high-risk patients with antiphospholipid syndrome with previous arterial or venous thromboembolism, current-generation mechanical or bioprosthetic aortic heart valve replacement. Note: Patients with mechanical aortic valve replacement and additional risk factors for thromboembolic events (atrial fibrillation, previous thromboembolism, LV dysfunction, hypercoagulable conditions) or an older generation mechanical AVR (i.e., ball in-Cage) or any mechanical MVR should have a INR therapeutic range of 2.5 to 3.5 (target INR of 3). Mckenzie GH, et al. Chest 2012, 141:7S-47S Yg RA, et al. [facility] 2017, 70: 252-289 Performed By: #### 5 5454-3 #### [facility] [place] [id number] [address] [place] [address] [place] PT Coag (PPP) [Time] 22.8 s High 9.7-13.0 [facility] Comment on above: Order Comment: Speci men Type: BLOOD SPECIMEN Ordering Facility: [facility] Address: [address] [place] [address] Performed By: #### 5 5454-3 #### [facility] [place] [id number] [address] [place] [address] [place] Bacteria Ur Culton 5 Bacteria identified Cx Nom (U) ORGANISM ID: 1 50,000-<100,000 CFU/ml Normal urogenital darrius Normal [facility] Comment on above: Performed By: #### 5 5454-3 #### [facility] [place] [id number] [address] [place] [address] [place] T4 Free SerPl-mCncon 025 Free T4 [Mass/Vol] 1.2 ng/dL Normal 0.9-1.7 [facility] Comment on above: Order Comment: Speci men Type: BLOOD SPECIMEN Ordering Facility: [facility] Address: [address] [place] [address] Performed By: #### 3 4528-0 #### [facility] [place] [id number] [address] [place] [address] [place] TSH SerPl-aCncon 12-31-2024 TSH Qn 2.680 m[IU]/L Normal 0.270-4.200 [facility] Comment on above: Order Comment: Speci men Type: BLOOD SPECIMEN Ordering Facility: [facility] Address: [address] [place] [address] Performed By: #### 3 4528-0 #### [facility] CLIA [id number] [address] [place] [address] [place] Urinalysis complete panel (U )on 12-31-2024 Bacteria LM.HPF (Urine sed) [#/Area] Negative Normal Negative [facility] Comment on above: Order Comment: Speci men Type: BLOOD SPECIMEN Ordering Facility: [facility] Address: [address] [place] [address] Performed By: #### 5 5454-3 #### [facility] CLIA [id number] [address] [place] [address] [place] Bilirubin Ql (U) Negative Normal Negative [facility] Comment on above: Order Comment: Speci men Type: BLOOD SPECIMEN Ordering Facility: [facility] Address: [address] [place] [address] Performed By: #### 5 5454-3 #### [facility] CLIA [id number] [address] [place] [address] [place] Clarity (Unsp spec) Clear Normal Clear [facility] Comment on above: Order Comment: Speci men Type: BLOOD SPECIMEN Ordering Facility: [facility] Address: [address] [place] [address] Performed By: #### 5 5454-3 #### [facility] CLIA [id number] [address] [place] [address] [place] Color (U) Yellow Normal Yellow [facility] Comment on above: Order Comment: Speci men Type: BLOOD SPECIMEN Ordering Facility: [facility] Address: [address] [place] [address] Performed By: #### 5 5454-3 #### [facility] CLIA [id number] [address] [place] [address] Epithelial cells LM.HPF (Urine sed) [#/Area] Moderate Normal [facility] Comment on above: Order Comment: Speci men Type: BLOOD SPECIMEN Ordering Facility: [facility] Address: [address] [place] [address] Performed By: #### 5 5454-3 #### [facility] CLIA [id number] [address] [place] [address] [place] Glucose Test strip (U) [Mass/Vol] Negative Normal Negative [facility] Comment on above: Order Comment: Speci men Type: BLOOD SPECIMEN Ordering Facility: [facility] Address: [address] [place] [address] Performed By: #### 5 5454-3 #### [facility] CLIA [id number] [address] [place] [address] [place] Hemoglobin Ql (U) Negative Normal Negative [facility] Comment on above: Order Comment: Speci men Type: BLOOD SPECIMEN Ordering Facility: [facility] Address: [address] [place] [address] Performed By: #### 5 5454-3 #### [facility] CLIA [id number] [address] [place] [address] [place] Hyaline casts (Urine sed) [#/Area] 0 /[LPF] Normal 0 /LPF [facility] Comment on above: Order Comment: Speci men Type: BLOOD SPECIMEN Ordering Facility: [facility] Address: [address] [place] [address] Performed By: #### 5 5454-3 #### [facility] CLIA [id number] [address] [place] [address] [place] Ketones Ql (U) Negative Normal Negative [facility] Comment on above: Order Comment: Speci men Type: BLOOD SPECIMEN Ordering Facility: [facility] Address: [address] [place] [address] Performed By: #### 5 5454-3 #### [facility] CLIA [id number] [address] [place] [address] [place] Leukocyte esterase Test strip Ql (U) Trace Abnormal Negative [facility] Comment on above: Order Comment: Speci men Type: BLOOD SPECIMEN Ordering Facility: [facility] Address: [address] [place] [address] Performed By: #### 5 5454-3 #### [facility] CLIA [id number] [address] [place] [address] [place] Nitrite Ql (U) Negative Normal Negative [facility] Comment on above: Order Comment: Speci men Type: BLOOD SPECIMEN Ordering Facility: [facility] Address: [address] [place] [address] Performed By: #### 5 5454-3 #### [facility] CLIA [id number] [address] [place] [address] [place] pH (U) 5.5 [pH] Normal 5.0-8.0 [facility] Comment on above: Order Comment: Speci men Type: BLOOD SPECIMEN Ordering Facility: [facility] Address: [address] [place] [address] Performed By: #### 5 5454-3 #### [facility] CLIA [id number] [address] [place] [address] [place] Protein (U) [Mass/Vol] Negative Normal Negative [facility] Comment on above: Order Comment: Speci men Type: BLOOD SPECIMEN Ordering Facility: [facility] Address: [address] [place] [address] Performed By: #### 5 5454-3 #### [facility] CLIA [id number] [address] RBC LM.HPF (Urine sed) [#/Area] 0-2 /HPF Normal 0-2 /HPF [facility] Comment on above: Order Comment: Speci men Type: BLOOD SPECIMEN Ordering Facility: [facility] Address: [address] [place] [address] Performed By: #### 5 5454-3 #### [facility] CLIA [id number] [address] [place] [address] [place] Specific gravity (U) [Rel density] 1.013 Normal 1.005-1.030 [facility] Comment on above: Order Comment: Speci men Type: BLOOD SPECIMEN Ordering Facility: [facility] Address: [address] [place] [address] Performed By: #### 5 5454-3 #### [facility] CLIA [id number] [address] [place] [address] [place] Urobilinogen Ql (U) 0.2 EU/dL Normal 0.2-1.0 EU/dL [facility] Comment on above: Order Comment: Speci men Type: BLOOD SPECIMEN Ordering Facility: [facility] Address: [address] [place] [address] Performed By: #### 5 5454-3 #### [facility] CLIA [id number] [address] [place] [address] [place] WBC LM.HPF (Urine sed) [#/Area] 0-5 /HPF Normal 0-5 /HPF [facility] Comment on above: Order Comment: Speci men Type: BLOOD SPECIMEN Ordering Facility: [facility] Address: [address] [place] [address] Performed By: #### 5 5454-3 #### [facility] CLIA [id number] [address] [place] [address] [place] CNOVon 12-28-2024 [facility] VERO HOLT ([id number]) 1970 F Date Time Provider Department 12/28/24 3:40 PM URSULA [facility] During your visit today, we recorded the following information about you: Pulse Respiration Blood pressure Weight 67/minute 14/minute 124/76 131.3 kg Height 1.64 m 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 - Tubal ligation; no menses for a long time. - Menopause at age 43-44; family history of early menopause (mother at age 40). - Last Pap smear date unknown; recent mammogram performed this morning. - Family history of thyroid issues; no personal history of thyroid issues. Factor V Leiden: - Managed with Coumadin; INR checked every couple of months. - Recent INR: 2.7; previous INR: 2.6-2.7. - Consistent Coumadin dosing, rarely has changes in it UTI: - Completed antibiotic course recently. - Persistent urinary frequency and irritation (skin irritation improving - Denies fevers. Rash: - Rash treated with a cream, used twice, but discontinued due to worsening symptoms. - Rash is improving after discontinuing the cream and just good hygiene care, denies need for further treatment Weight Management: - Lost 3 lbs since last visit. 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 - Struggles with water intake, describing it as horrible. - Attempts to increase hydration by consuming ice and flavored water. - Occasionally drinks BodyArmor for hydration. - Enjoys sweet tea as a vice. Anxiety/depression Reports no concerns, things are getting better and medication is effective PAST MEDICAL HISTORY: PAST MEDICAL HISTORY Diagnosis Date DVT of upper extremity (deep vein thrombosis) (HCC) 2004 left upper arm after gallbladder surgery Factor V Leiden mutation (HCC) BEBE (generalized anxiety disorder) Migraine, unspecified, without mention of intractable migraine without mention of status migrainosus Nummular eczema 07/2014 Other acute embolism veins 2007 left leg Symptomatic menopausal or female climacteric states perimenopausal PAST SURGICAL HISTORY Procedure Laterality Date DELIVERY ONLY 1996 , low cervical CHOLECYSTECTOMY 2004 Cholecystectomy COLONOSCOPY FLX DX W/COLLJ SPEC WHEN PFRMD 12/03/2019 Colonoscopy ESOPHAGOGASTRODUODEN OSCOPY TRANSORAL DIAGNOSTIC 12/03/2019 EGD LIG/TRNSXJ FLP TUBE ABDL/VAG APPR UNI/BI 1996 ALLERGIES Adgiixo-Ewg-Fbztoez- Acetam-Caf, Topamax [Topiramate], and Vicodin [Hydrocodone-Acetami nophen] MEDICATIONS Current Outpatient Medications Medication Sig furosemide (LASIX) 20 mg tablet Take 1 tablet by mouth once daily. warfarin (COUMADIN) 2 mg tablet Take 4 mg M-W-F and 6 mg all other days of the week (patient has 6 mg rx also) propranolol (INDERAL) 40 mg tablet Take 1 tablet by mouth once daily. ferrous sulfate (SLOW FE) 140 mg (45 mg iron) TbER Take 1 tablet by mouth two times a day with meals. FLUoxetine (PROZAC) 40 mg capsule Take 1 capsule by mouth once daily. FLUoxetine (PROZAC) 20 mg capsule Take 1 capsule by mouth once daily. Take with 40 mg capsule to total 60 mg a day valACYclovir (VALTREX) 1 gram tablet take 1 tablet by mouth three times a day for 7 days for herpes outbreaks warfarin (COUMADIN) 6 mg tablet Take 4 mg M-W-F and 6 mg all the other days of the week (patient will have 2 mg rx also) omeprazole (PRILOSEC) 20 mg capsule Take 1 capsule by mouth once daily. busPIRone (BUSPAR) 7.5 mg tablet Take 1 tablet by mouth at bedtime as needed (INSOMNIA). magnesium oxide 200 mg magnesium tab Take by mouth. Pt takes twice daily cholecalciferol, vitamin D3, 10 mcg (400 unit) cap Take 400 Units by mouth once daily. Pt takes twice daily vitamin B complex (B COMPLEX 1 ORAL) Take by mouth. No current facility-administere d medications for this visit. FAMILY HISTORY Problem Relation Age of Onset Diabetes Mother diet Thyroid Mother Factor 5 Leiden Mother Hypertension Father asthma, DM Diabetes Father on pills Asthma Father COPD Father Cancer Maternal Grandfather lung - smoker Stroke Paternal Grandmother age 84 Social History Tobacco Use Smoking status: Never Smokeless tobacco: Never Substance Use Topics Alcohol use: No Drug use: No REVIEW OF SYSTEMS GENERAL: No weight loss, malaise or fevers/chills. +wt gain HEENT: Negative for frequent or significant headaches, No changes in hearing or vision. NECK: Negative for lumps, goiter, pain and significant neck swelling RESPIRATOR (more content not included)... Normal [facility] TJ SCREENING W TOMOon 12-28 TJ SCREENING W REGIS * * *Final Report* * * DATE OF EXAM: Dec 28 2024 9:38AM [id number] - TJ SCREENING W REGIS / PROCEDURE REASON: Encounter for screening mammogram for breast cancer * * * * Physician Interpretation * * * * RESULT: [place] [address] #[id number] - TJ SCREENING W REGIS HISTORY: 54 year-old patient presents for screening. Patient is asymptomatic in both breasts. Patient states no personal history of breast cancer. COMPARISON STUDIES: The present examination has been compared to prior imaging studies dated 02/27/2022 (mammogram) and 09/25/2023 (mammogram). MAMMOGRAM TECHNIQUE: The study was acquired using full field digital technology and interpreted from soft copy. Digital Breast Tomosynthesis (DBT) images were obtained and used to assist in the interpretation of this examination. MAMMOGRAM FINDINGS: There are scattered areas of fibroglandular density. No suspicious masses, calcifications or other abnormalities are seen in either breast. There are no significant interval changes. IMPRESSION: There is no mammographic evidence of malignancy in either breast. Routine screening mammogram is recommended. Annual mammogram will be due in 1 year. BI-RADS Category 1: Negative RISK: Based on the Tyrer-Cuzick (TC) risk assessment model, this patient has a 7.5% lifetime risk of developing breast cancer, meaning they are at average risk for developing breast cancer. However, this is only an estimate based on available history provided on the patient's questionnaire. We encourage all patients to talk with their providers about these results, further recommendations for managing breast health, and appropriate supplemental screening options if the patient has dense breast tissue. Interpreting Radiologist: Nita Donaldson M.D. Electronically signed on: 12/29/2024 Commercial Center Manager: JENNIFER Transcribe Date/Time: Dec 28 2024 9:03A Dictated by: NITA DONALDSON MD This examination was interpreted and the report reviewed and electronically signed by: NITA DONALDSON MD on Dec 29 2024 11:07AM EST [id number] CN Normal [facility] CBC W Auto Differential pane l (Bld)on 12-23-2024 Basophils (Bld) [#/Vol] 0.03 10*3/uL Normal <0.11 [facility] Comment on above: Order Comment: Speci men Type: BLOOD SPECIMEN Ordering Facility: [facility] Address: [address] [place] [address] Performed By: #### 5 5454-3 #### [facility] CLIA [id number] [address] [place] [address] [place] Basophils/100 WBC (Bld) 0.5 % Normal [facility] Comment on above: Order Comment: Speci men Type: BLOOD SPECIMEN Ordering Facility: [facility] Address: [address] [place] [address] Performed By: #### 5 5454-3 #### [facility] CLIA [id number] [address] [place] [address] [place] Differential cell count method Nom (Bld) Auto Normal [facility] Comment on above: Order Comment: Speci men Type: BLOOD SPECIMEN Ordering Facility: [facility] Address: [address] [place] [address] Performed By: #### 5 5454-3 #### [facility] CLIA [id number] [address] [place] [address] [place] Eosinophils (Bld) [#/Vol] 0.20 10*3/uL Normal <0.46 [facility] Comment on above: Order Comment: Speci men Type: BLOOD SPECIMEN Ordering Facility: [facility] Address: [address] [place] [address] Performed By: #### 5 5454-3 #### [facility] CLIA [id number] [address] [place] [address] [place] Eosinophils/100 WBC (Bld) 3.3 % Normal [facility] Comment on above: Order Comment: Speci men Type: BLOOD SPECIMEN Ordering Facility: [facility] Address: [address] [place] [address] Performed By: #### 5 5454-3 #### [facility] CLIA [id number] [address] [place] [address] [place] Erythrocyte distribution width (RBC) [Ratio] 13.0 % Normal 11.5-15.0 [facility] Comment on above: Order Comment: Speci men Type: BLOOD SPECIMEN Ordering Facility: [facility] Address: [address] [place] [address] Performed By: #### 5 5454-3 #### [facility] CLIA [id number] [address] [place] [address] [place] Hematocrit (Bld) [Volume fraction] 42.1 % Normal 36.0-46.0 [facility] Comment on above: Order Comment: Speci men Type: BLOOD SPECIMEN Ordering Facility: [facility] Address: [address] [place] [address] Performed By: #### 5 5454-3 #### [facility] CLIA [id number] [address] [place] [address] [place] Hemoglobin (Bld) [Mass/Vol] 14.4 g/dL Normal 11.5-15.5 [facility] Comment on above: Order Comment: Speci men Type: BLOOD SPECIMEN Ordering Facility: [facility] Address: [address] [place] [address] Performed By: #### 5 5454-3 #### [facility] CLIA [id number] [address] [place] [address] [place] Immature granulocytes (Bld) [#/Vol] 10*3/uL Normal <0.10 [facility] Comment on above: Order Comment: Speci men Type: BLOOD SPECIMEN Ordering Facility: [facility] Address: [address] [place] [address] Performed By: #### 5 5454-3 #### [facility] CLIA [id number] [address] [place] [address] [place] Immature granulocytes/100 WBC (Bld) 0.3 % Normal [facility] Comment on above: Order Comment: Speci men Type: BLOOD SPECIMEN Ordering Facility: [facility] Address: [address] [place] [address] Performed By: #### 5 5454-3 #### [facility] CLIA [id number] [address] [place] [address] [place] Lymphocytes (Bld) [#/Vol] 1.40 10*3/uL Normal 1.00-4.0 0 [facility] Comment on above: Order Comment: Speci men Type: BLOOD SPECIMEN Ordering Facility: [facility] Address: [address] [place] [address] Performed By: #### 5 5454-3 #### [facility] CLIA [id number] [address] [place] [address] [place] Lymphocytes/100 WBC (Bld) 23.3 % Normal [facility] Comment on above: Order Comment: Speci men Type: BLOOD SPECIMEN Ordering Facility: [facility] Address: [address] [place] [address] Performed By: #### 5 5454-3 #### [facility] CLIA [id number] [address] [place] [address] [place] MCH (RBC) [Entitic mass] 32.3 pg Normal 26.0-34.0 [facility] Comment on above: Order Comment: Speci men Type: BLOOD SPECIMEN Ordering Facility: [facility] Address: [address] [place] [address] Performed By: #### 5 5454-3 #### [facility] CLIA [id number] [address] [place] [address] [place] MCHC (RBC) [Mass/Vol] 34.2 g/dL Normal 30.5-36.0 [facility] Comment on above: Order Comment: Speci men Type: BLOOD SPECIMEN Ordering Facility: [facility] Address: [address] [place] [address] Performed By: #### 5 5454-3 #### [facility] CLIA [id number] [address] [place] [address] [place] MCV (RBC) [Entitic vol] 94.4 fL Normal 80.0-100.0 [facility] Comment on above: Order Comment: Speci men Type: BLOOD SPECIMEN Ordering Facility: [facility] Address: [address] [place] [address] Performed By: #### 5 5454-3 #### [facility] CLIA [id number] [address] [place] [address] [place] Monocytes (Bld) [#/Vol] 0.53 10*3/uL Normal <0.87 [facility] Comment on above: Order Comment: Speci men Type: BLOOD SPECIMEN Ordering Facility: [facility] Address: [address] [place] [address] Performed By: #### 5 5454-3 #### [facility] CLIA [id number] [address] [place] [address] [place] Monocytes/100 WBC (Bld) 8.8 % Normal [facility] Comment on above: Order Comment: Speci men Type: BLOOD SPECIMEN Ordering Facility: [facility] Address: [address] [place] [address] Performed By: #### 5 5454-3 #### [facility] CLIA [id number] [address] [place] [address] [place] Neutrophils (Bld) [#/Vol] 3.84 10*3/uL Normal 1.45-7.5 0 [facility] Comment on above: Order Comment: Speci men Type: BLOOD SPECIMEN Ordering Facility: [facility] Address: [address] [place] [address] Performed By: #### 5 5454-3 #### [facility] CLIA [id number] [address] [place] [address] [place] Neutrophils/100 WBC (Bld) 63.8 % Normal [facility] Comment on above: Order Comment: Speci men Type: BLOOD SPECIMEN Ordering Facility: [facility] Address: [address] [place] [address] Performed By: #### 5 5454-3 #### [facility] CLIA [id number] [address] [place] [address] [place] Nucleated RBC (Bld) [#/Vol] 10*3/uL Normal <0.01 [facility] Comment on above: Order Comment: Speci men Type: BLOOD SPECIMEN Ordering Facility: [facility] Address: [address] [place] [address] Performed By: #### 5 5454-3 #### [facility] CLIA [id number] [address] [place] [address] [place] Nucleated RBC/100 WBC (Bld) [Ratio] 0.0 /100 WBC Normal [facility] Comment on above: Order Comment: Speci men Type: BLOOD SPECIMEN Ordering Facility: [facility] Address: [address] [place] [address] Performed By: #### 5 5454-3 #### [facility] CLIA [id number] [address] [place] [address] [place] Platelet mean volume (Bld) [Entitic vol] 9.0 fL Normal 9.0-12.7 [facility] Comment on above: Order Comment: Speci men Type: BLOOD SPECIMEN Ordering Facility: [facility] Address: [address] [place] [address] Performed By: #### 5 5454-3 #### [facility] CLIA [id number] [address] [place] [address] [place] Platelets (Bld) [#/Vol] 175 10*3/uL Normal 150-400 [facility] Comment on above: Order Comment: Speci men Type: BLOOD SPECIMEN Ordering Facility: [facility] Address: [address] [place] [address] Performed By: #### 5 5454-3 #### [facility] CLIA [id number] [address] [place] [address] [place] RBC (Bld) [#/Vol] 4.46 10*6/uL Normal 3.90-5.20 [facility] Comment on above: Order Comment: Speci men Type: BLOOD SPECIMEN Ordering Facility: [facility] Address: [address] [place] [address] Performed By: #### 5 5454-3 #### [facility] CLIA [id number] [address] [place] [address] [place] WBC (Bld) [#/Vol] 6.02 10*3/uL Normal 3.70-11.00 [facility] Comment on above: Order Comment: Speci men Type: BLOOD SPECIMEN Ordering Facility: [facility] Address: [address] [place] [address] Performed By: #### 5 5454-3 #### [facility] CLIA [id number] [address] [place] [address] [place] Comprehensive metabolic 2000 panelon 12-23-2024 Albumin [Mass/Vol] 4.1 g/dL Normal 3.9-4.9 [facility] Comment on above: Order Comment: Speci men Type: BLOOD SPECIMEN Ordering Facility: [facility] Address: [address] [place] [address] Performed By: #### 3 4528-0 #### [facility] CLIA [id number] [address] [place] [address] [place] ALP [Catalytic activity/Vol] 113 U/L Normal 34-123 [facility] Comment on above: Order Comment: Speci men Type: BLOOD SPECIMEN Ordering Facility: [facility] Address: [address] [place] [address] Performed By: #### 3 4528-0 #### [facility] CLIA [id number] [address] [place] [address] [place] ALT [Catalytic activity/Vol] 25 U/L Normal 7-38 [facility] Comment on above: Order Comment: Speci men Type: BLOOD SPECIMEN Ordering Facility: [facility] Address: [address] [place] [address] Performed By: #### 3 4528-0 #### [facility] CLIA [id number] [address] [place] [address] [place] Anion gap [Moles/Vol] 12 mmol/L Normal 8-15 [facility] Comment on above: Order Comment: Speci men Type: BLOOD SPECIMEN Ordering Facility: [facility] Address: [address] [place] [address] Performed By: #### 3 4528-0 #### [facility] CLIA [id number] [address] [place], [place] [address] [place] AST [Catalytic activity/Vol] 28 U/L Normal 13-35 [facility] Comment on above: Order Comment: Speci men Type: BLOOD SPECIMEN Ordering Facility: [facility] Address: [address] [place] [address] Performed By: #### 3 4528-0 #### [facility] CLIA [id number] [address] [place] [address] [place] Bilirubin [Mass/Vol] 1.0 mg/dL Normal 0.2-1.3 [facility] Comment on above: Order Comment: Speci men Type: BLOOD SPECIMEN Ordering Facility: [facility] Address: [address] [place] [address] Performed By: #### 3 4528-0 #### [facility] CLIA [id number] [address] [place] [address] [place] Calcium [Mass/Vol] 9.3 mg/dL Normal 8.5-10.2 [facility] Comment on above: Order Comment: Speci men Type: BLOOD SPECIMEN Ordering Facility: [facility] Address: [address] [place] [address] Performed By: #### 3 4528-0 #### [facility] CLIA [id number] [address] [place] [address] [place] Chloride [Moles/Vol] 104 mmol/L Normal 98-107 [facility] Comment on above: Order Comment: Speci men Type: BLOOD SPECIMEN Ordering Facility: [facility] Address: [address] [place] [address] Performed By: #### 3 4528-0 #### [facility] CLIA [id number] [address] [place] [address] [place] CO2 [Moles/Vol] 24 mmol/L Normal 22-30 [facility] Comment on above: Order Comment: Speci men Type: BLOOD SPECIMEN Ordering Facility: [facility] Address: [address] [place] [address] Performed By: #### 3 4528-0 #### [facility] CLIA [id number] [address] [place] [address] [place] Creatinine [Mass/Vol] 1.27 mg/dL High 0.58-0.96 [facility] Comment on above: Order Comment: Speci men Type: BLOOD SPECIMEN Ordering Facility: [facility] Address: [address] [place] [address] Performed By: #### 3 4528-0 #### [facility] CLIA [id number] [address] [place] [address] [place] eGFRcr SerPlBld CKD-EPI 2020 50 mL/min/1.73m??? Low >=60 [facility] Comment on above: Order Comment: Manuela st Type: BLOOD SPECIMEN Ordering Facility: [facility] Address: [address] [place] [address] Result Comment: Kristen mated Glomerular Filtration Rate (eGFR) is calculated using the 2020 CKD-EPI creatinine equation. This equation utilizes serum creatinine, sex, and age as parameters. The creatinine assay has traceable calibration to isotope dilution-mass spectrometry. Refer to KDIGO guidelines for clinical interpretation. In patients with unstable renal function, e.g. those with acute kidney injury, the eGFR may not accurately reflect actual GFR. Performed By: #### 3 4528-0 #### [facility] CLIA [id number] [address] [place] [address] [place] Glucose [Mass/Vol] 92 mg/dL Normal 74-99 [facility] Comment on above: Order Comment: Manuela st Type: BLOOD SPECIMEN Ordering Facility: [facility] Address: [address] [place] [address] Result Comment: The [place] Diabetes Association (ADA) provides guidance for cutoff values for fasting glucose and random glucose. The ADA defines fasting as no caloric intake for at least 8 hours. Fasting plasma glucose results between 100 to 125 mg/dL indicate increased risk for diabetes (prediabetes). Fasting plasma glucose results greater than or equal to 126 mg/dL meet the criteria for diagnosis of diabetes. In the absence of unequivocal hyperglycemia, results should be confirmed by repeat testing. In a patient with classic symptoms of hyperglycemia or hyperglycemic crisis, random plasma glucose results greater than or equal to 200 mg/dL meet the criteria for diagnosis of diabetes. Reference: Standards of Medical Care in Diabetes 2016, [place] Diabetes Association. Diabetes Care. 2016.39(Suppl 1). Performed By: #### 3 4528-0 #### [facility] CLIA [id number] [address] [place], [place] [address] [place] Potassium [Moles/Vol] 4.3 mmol/L Normal 3.7-5.1 [facility] Comment on above: Order Comment: Speci men Type: BLOOD SPECIMEN Ordering Facility: [facility] Address: [address] [place] [address] Performed By: #### 3 4528-0 #### [facility] CLIA [id number] [address] [place] [address] [place] Protein [Mass/Vol] 7.2 g/dL Normal 6.3-8.0 [facility] Comment on above: Order Comment: Speci men Type: BLOOD SPECIMEN Ordering Facility: [facility] Address: [address] [place] [address] Performed By: #### 3 4528-0 #### [facility] CLIA [id number] [address] [place] [address] [place] Sodium [Moles/Vol] 140 mmol/L Normal 136-144 [facility] Comment on above: Order Comment: Speci men Type: BLOOD SPECIMEN Ordering Facility: [facility] Address: [address] [place] [address] Performed By: #### 3 4528-0 #### [facility] CLIA [id number] [address] [place] [address] [place] Urea nitrogen [Mass/Vol] 17 mg/dL Normal 7-21 [facility] Comment on above: Order Comment: Speci men Type: BLOOD SPECIMEN Ordering Facility: [facility] Address: [address] [place] [address] Performed By: #### 3 4528-0 #### [facility] CLIA [id number] [address] [place], [place] [address] [place] Ferritin SerPl-mCncon 07-16- 2025 Ferritin [Mass/Vol] 125.0 ng/mL Normal 14.7-205.1 [facility] Comment on above: Order Comment: Manuela st Type: BLOOD SPECIMEN Ordering Facility: [facility] Address: [address] [place] [address] Performed By: #### 3 4528-0 #### [facility] CLIA [id number] [address] [place] [address] [place] HbA1c (Bld)on 12-23-2024 Average glucose Estimated from glycated hemoglobin (Bld) [Mass/Vol] 88 mg/dL Normal [facility] Comment on above: Order Comment: Manuela st Type: BLOOD SPECIMEN Ordering Facility: [facility] Address: [address] [place] [address] Result Comment: eAG: (Estimated average glucose) is a calculated value from HgbA1c and is customer operations representative of the average blood glucose level in the last 2-3 month period. Performed By: #### 5 5454-3 #### [facility] CLIA [id number] [address] [place] [address] [place] [facility] HbA1c (Bld) [Mass fraction] 4.7 % Normal 4.3-5.6 [facility] Comment on above: Order Comment: Manuela st Type: BLOOD SPECIMEN Ordering Facility: [facility] Address: [address] [place] [address] Result Comment: [place] Diabetes Association guidelines indicate that patients with HgbA1c in the range 5.7-6.4% are at increased risk for development of diabetes, and intervention by lifestyle modification may be beneficial. HgbA1c greater or equal to 6.5% is considered diagnostic of diabetes. Performed By: #### 5 5454-3 #### [facility] CLIA [id number] [address] [place] [address] [place] Iron and Iron binding capaci ty panelon 12-23-2024 Iron [Mass/Vol] 61 ug/dL Normal 41-186 [facility] Comment on above: Order Comment: Manuela st Type: BLOOD SPECIMEN Ordering Facility: [facility] Address: [address] [place] [address] Performed By: #### 3 4528-0 #### [facility] CLIA [id number] [address] [place] [address] [place] Iron binding capacity [Mass/Vol] 262 ug/dL Normal 232-386 [facility] Comment on above: Order Comment: Speci men Type: BLOOD SPECIMEN Ordering Facility: [facility] Address: [address] [place] [address] Performed By: #### 3 4528-0 #### [facility] CLIA [id number] [address] [place] [address] [place] Iron/TIBC [Molar ratio] 23.3 % Normal 15.0-57.0 [facility] Comment on above: Order Comment: Speci men Type: BLOOD SPECIMEN Ordering Facility: [facility] Address: [address] [place] [address] Performed By: #### 3 4528-0 #### [facility] CLIA [id number] [address] [place] [address] [place] Lipid 1996 panelon 5 Cholesterol [Mass/Vol] 203 mg/dL High <200 [facility] Comment on above: Order Comment: Speci men Type: BLOOD SPECIMEN Ordering Facility: [facility] Address: [address] [place] [address] Result Comment: <200 mg/dL, Desirable 200-239 mg/dL, Borderline high >239 mg/dL, High Performed By: #### 3 4528-0 #### [facility] CLIA [id number] [address] [place] [address] [place] Cholesterol in HDL [Mass/Vol] 45 mg/dL Normal >39 [facility] Comment on above: Order Comment: Speci men Type: BLOOD SPECIMEN Ordering Facility: [facility] Address: [address] [place] [address] Result Comment: 40-5 9 mg/dL, Acceptable >59 mg/dL, High: Negative risk factor for coronary heart disease <40 mg/dL, Low: Positive risk factor for coronary heart disease Performed By: #### 3 4528-0 #### [facility] CLIA [id number] [address] [place] [address] [place] Cholesterol in LDL [Mass/Vol] 140 mg/dL High <100 [facility] Comment on above: Order Comment: Manuela st Type: BLOOD SPECIMEN Ordering Facility: [facility] Address: [address] [place] [address] Result Comment: <100 mg/dL, Optimal 100-129 mg/dL, Near optimal/above optimal 130-159 mg/dL, Borderline high 160-189 mg/dL, High >189 mg/dL, Very high Secondary prevention optimal LDL Cholesterol levels are recommended to be <70 mg/dL LDL cholesterol is calculated using the Christie-NIH equation. Performed By: #### 3 4528-0 #### [facility] CLIA [id number] [address] [place] [address] [place] Cholesterol in LDL/Cholesterol in HDL [Mass ratio] 3.11 {ratio} High <2.54 [facility] Comment on above: Order Comment: Manuela st Type: BLOOD SPECIMEN Ordering Facility: [facility] Address: [address] [place] [address] Result Comment: Refana velasquez: 1. National Cholesterol Education Program ATP III Guideline At-A-Glance Quick Desk Reference: National Heart, Lung, and Blood [place]. National Institutes of Health. 2001: NIH Publication No. 01-3305. 2. An International Atherosclerosis Society position paper: global recommendations for the management of dyslipidemia: executive summary, Atherosclerosis. 2014: 232(2):410-413. Performed By: #### 3 4528-0 #### [facility] CLIA [id number] [address] [place] [address] [place] Cholesterol in VLDL [Mass/Vol] 18 mg/dL Normal <30 [facility] Comment on above: Order Comment: Manuela st Type: BLOOD SPECIMEN Ordering Facility: [facility] Address: [address] [place] [address] Performed By: #### 3 4528-0 #### [facility] CLIA [id number] [address] [place] [address] [place] Cholesterol non HDL [Mass/Vol] 158 mg/dL High <130 [facility] Comment on above: Order Comment: Speci men Type: BLOOD SPECIMEN Ordering Facility: [facility] Address: [address] [place] [address] Result Comment: <130 mg/dL, Optimal 130-159 mg/dL, Near optimal/above optimal 160-189 mg/dL, Borderline high 190-219 mg/dL, High >219 mg/dL, Very high Secondary prevention optimal non HDL Cholesterol levels are recommended to be <100 mg/dL Performed By: #### 3 4528-0 #### [facility] CLIA [id number] [address] [place] [address] [place] Cholesterol.total/Cholest ev in HDL [Mass ratio] 4.51 {ratio} Normal <5.10 [facility] Comment on above: Order Comment: Speci men Type: BLOOD SPECIMEN Ordering Facility: [facility] Address: [address] [place] [address] Performed By: #### 3 4528-0 #### [facility] CLIA [id number] [address] [place] [address] [place] FASTING TIME 12 hrs Normal [facility] Comment on above: Order Comment: Speci men Type: BLOOD SPECIMEN Ordering Facility: [facility] Address: [address] [place] [address] Performed By: #### 3 4528-0 #### [facility] CLIA [id number] [address] [place] [address] [place] Triglyceride [Mass/Vol] 102 mg/dL Normal <150 [facility] Comment on above: Order Comment: Speci men Type: BLOOD SPECIMEN Ordering Facility: [facility] Address: [address] [place] [address] Result Comment: <150 mg/dL, Normal 150-199 mg/dL, Borderline high 200-499 mg/dL, High >499 mg/dL, Very high Performed By: #### 3 4528-0 #### [facility] CLIA [id number] [address] [place] [address] [place] PT panel Coag (PPP)on 2024 INR Coag (PPP) [Relative time] 2.7 {INR} High 0.9-1.3 [facility] Comment on above: Order Comment: Speci men Type: BLOOD SPECIMEN Ordering Facility: [facility] Address: [address] [place] [address] Result Comment: Alissa min K Antagonist (VKA) Therapeutic Range: INR 2 to 3 (Target INR of 2.5) Note: For patients treated with VKA drugs, such as warfarin, the [employer] 2012 Guideline recommends a therapeutic INR range of 2 to 3 (target INR of 2.5). This recommendation includes high-risk patients with antiphospholipid syndrome with previous arterial or venous thromboembolism, current-generation mechanical or bioprosthetic aortic heart valve replacement. Note: Patients with mechanical aortic valve replacement and additional risk factors for thromboembolic events (atrial fibrillation, previous thromboembolism, LV dysfunction, hypercoagulable conditions) or an older generation mechanical AVR (i.e., ball in-Cage) or any mechanical MVR should have a INR therapeutic range of 2.5 to 3.5 (target INR of 3). Mckenzie GH, et al. Chest 2012, 141:7S-47S Yg RA, et al. [facility] 2017, 70: 252-289 Performed By: #### 3 4528-0 #### [facility] CLIA [id number] [address] [place] [address] [place] PT Coag (PPP) [Time] 27.7 s High 9.7-13.0 [facility] Comment on above: Order Comment: Speci men Type: BLOOD SPECIMEN Ordering Facility: [facility] Address: [address] [place] [address] Performed By: #### 3 4528-0 #### [facility] CLIA [id number] [address] [place] [address] [place] [id number] [place] Bacteria Ur Culton 5 Bacteria identified Cx Nom (U) ORGANISM ID: 1 >=100,000 CFU/ml Klebsiella pneumoniae ORGANISM ID: 1 (KLEBSIELLA PNEUMONIAE) ANTIBIOTIC INTERPRETATION VERNA STATUS REFERENCE RANGE Ampicillin R F Cefazolin S <=4 F Susceptible 0-16 , Intermediate <0 or >16 , Resistant >16 For uncomplicated urinary tract infections, cefazolin results can be used to predict susceptibility or resistance to cephalexin. Ceftriaxone S <=1 F Susceptible <=1 , Intermediate >1 , Resistant >=4 Cefepime S <=1 F Susceptible <=2 , Susceptible-Dose Dependent >2 , Resistant >=16 Ertapenem S <=0.5 F Susceptible <=0.5 , Intermediate >.5 , Resistant >1 Meropenem S <=0.25 F Susceptible <=1 , Intermediate >1 , Resistant >2 Ampicillin/Sulbact S <=2 F Susceptible <=8 , Intermediate >8 , Resistant >16 Piperacillin/Tazobac S <=4 F Susceptible <16 , Susceptible-Dose Dependent >=16 , Resistant >=32 Gentamicin S <=1 F Susceptible <=2 , Intermediate >2 , Resistant >=8 Tobramycin S <=1 F Susceptible <4 , Intermediate >=4 , Resistant >=8 Trimeth sulfameth S <=20 F Susceptible <=40 , Resistant >40 Ciprofloxacin S <=0.25 F Susceptible <0.5 , Intermediate >=.5 , Resistant >=1 Nitrofurantoin I 64 F Susceptible <=32 , Intermediate >32 , Resistant >64 Abnormal [facility] Comment on above: Performed By: #### 5 5454-3 #### [facility] CLIA [id number] [address] [place] [address] CNOVon 12-17-2024 CNOV Office Visit (FAMPWS) VERO HOLT ([id number]) 1970 F Date Time Provider Department 12/17/24 7:20 AM [facility] During your visit today, we recorded the following information about you: Temperature Pulse Respiration Blood pressure 97.6 degrees 66/minute 14/minute 132/62 Weight 132.5 kg Ursula Mc APRN.CNP 12/17/2024 7:46 AM Addendum Get your labs done Saturday , fasting Wash your periarea/groin twice daily soap and water, pat dry, apply the mycolog cream Take one time dose of diflucan Ursula Mc APRN.CNP 12/18/2024 1:03 PM Signed This is a 54 year old female who presents today with: Vero Louise Yanet is a 54-year-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 HISTORY OF PRESENT ILLNESS: Rash: - New onset rash in the groin area. - Describes the rash as painful, particularly at the end of the day after work. - Denies pruritus. - Has not used any powders or topical treatments Increased Urinary Frequency: - Increased urinary frequency, particularly nocturia. - Occasional dysuria. - Denies back or flank pain. 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 - Last INR check in October; usually checks INR every 3-6 months, but lately has been bad about follow up as her boyfriend was on hospice and recently -alternating doses of coumadin -per patient, hematology told her to not let PCP check her labs all the time and to not adjust her dosing even if it's off , just repeat in a month - Denies hematuria or melena or any other signs of bleeding PAST MEDICAL HISTORY: PAST MEDICAL HISTORY Diagnosis Date DVT of upper extremity (deep vein thrombosis) (HCC) 2004 left upper arm after gallbladder surgery Factor V Leiden mutation (HCC) BEBE (generalized anxiety disorder) Migraine, unspecified, without mention of intractable migraine without mention of status migrainosus Nummular eczema 07/2014 Other acute embolism veins 2007 left leg Symptomatic menopausal or female climacteric states perimenopausal PAST SURGICAL HISTORY Procedure Laterality Date DELIVERY ONLY 1996 , low cervical CHOLECYSTECTOMY 2004 Cholecystectomy COLONOSCOPY FLX DX W/COLLJ SPEC WHEN PFRMD 12/03/2019 Colonoscopy ESOPHAGOGASTRODUODEN OSCOPY TRANSORAL DIAGNOSTIC 12/03/2019 EGD LIG/TRNSXJ FLP TUBE ABDL/VAG APPR UNI/BI 1996 ALLERGIES Fdaxcwf-Cfb-Cwgdmll- Acetam-Caf, Topamax [Topiramate], and Vicodin [Hydrocodone-Acetami nophen] MEDICATIONS Current Outpatient Medications Medication Sig warfarin (COUMADIN) 2 mg tablet Take 4 mg M-W-F and 6 mg all other days of the week (patient has 6 mg rx also) propranolol (INDERAL) 40 mg tablet Take 1 tablet by mouth once daily. ferrous sulfate (SLOW FE) 140 mg (45 mg iron) TbER Take 1 tablet by mouth two times a day with meals. FLUoxetine (PROZAC) 40 mg capsule Take 1 capsule by mouth once daily. FLUoxetine (PROZAC) 20 mg capsule Take 1 capsule by mouth once daily. Take with 40 mg capsule to total 60 mg a day valACYclovir (VALTREX) 1 gram tablet take 1 tablet by mouth three times a day for 7 days for herpes outbreaks warfarin (COUMADIN) 6 mg tablet Take 4 mg M-W-F and 6 mg all the other days of the week (patient will have 2 mg rx also) omeprazole (PRILOSEC) 20 mg capsule Take 1 capsule by mouth once daily. busPIRone (BUSPAR) 7.5 mg tablet Take 1 tablet by mouth at bedtime as needed (INSOMNIA). magnesium oxide 200 mg magnesium tab Take by mouth. Pt takes twice daily cholecalciferol, vitamin D3, 10 mcg (400 unit) cap Take 400 Units by mouth once daily. Pt takes twice daily vitamin B complex (B COMPLEX 1 ORAL) Take by mouth. nystatin-triamcinolo ne (MYCOLOG II) cream Apply to affected area two times a day. Abdominal fold and groin twice daily x 14 days and as needed after that fluconazole (DIFLUCAN) 150 mg tablet Take 1 tablet by mouth one time only for 1 dose. furosemide (LASIX) 20 mg tablet Take 1 tablet by mouth once daily. No current facility-administere d medications for this visit. FAMILY HISTORY Problem Relation Age of Onset Diabetes Mother diet Thyroid Mother Factor 5 Leiden Mother Hypertension Father asthma, DM Diabetes Father on pills Asthma Father COPD Father Cancer Maternal Grandfather lung - smoker Stroke Paternal Grandmother age 84 Social History Tobacco Use Smoking status: Never Smokeless tobacco: Never Substance Use Topics Alcohol use: No Drug use: No REVIEW OF SYSTEMS Constitutional: (-) fatigue Skin: (+) painful rash, (-) pruritus Genitourinary: (+) urinary frequency, (+) nocturia, (+) dysuria, (-) flank pain Musculoskeletal: (-) back pain See HPI EXAM: BP 132/62 (BP Site: Left Arm, BP Position: Sitting, BP Cuff Size: Large Jonathan (more content not included)... Normal [facility] UA DIP, URINE (POC)on 2024 BILIRUBIN UA (POCT) Negative Negative [facility] CLARITY UA (POCT) Clear [facility] COLOR UA (POCT) Other [facility] GLUCOSE UA (POCT) Negative Negative mg/dL [facility] Hemoglobin Ql (U) Negative Negative [facility] Interpretation and review of laboratory results Abnormal [facility] KETONE UA (POCT) Negative Negative mg/dL [facility] LEUKOCYTES UA (POCT) Small Abnormal Negative [facility] NITRITE UA (POCT) Negative Negative [facility] PH UA (POCT) 5.5 4.5 - 8.0 [facility] Protein Ql (U) Negative Negative mg/dL [facility] SPECIFIC GRAVITY UA (POCT) 1.015 1.005 - 1.030 [facility] UROBILINOGEN UA (POCT) 0.2 Soledad l E.U./dL [facility] Location:[address], [place], [address] [facility] POINT OF CARE [facility] PT panel Coag (PPP)on 2024 INR Coag (PPP) [Relative time] 2.4 {INR} High 0.9 - 1.3 [facility] Comment on above: Vitamin K Antagonist (VKA) Therapeutic Range: INR 2 to 3 (Target INR of 2.5) Note: For patients treated with VKA drugs, such as warfarin, the [employer] 2012 Guideline recommends a therapeutic INR range of 2 to 3 (target INR of 2.5). This recommendation includes high-risk patients with antiphospholipid syndrome with previous arterial or venous thromboembolism, current-generation mechanical or bioprosthetic aortic heart valve replacement. Note: Patients with mechanical aortic valve replacement and additional risk factors for thromboembolic events (atrial fibrillation, previous thromboembolism, LV dysfunction, hypercoagulable conditions) or an older generation mechanical AVR (i.e., ball in-Cage) or any mechanical MVR should have a INR therapeutic range of 2.5 to 3.5 (target INR of 3). Mckenzie GH, et al. Chest 2012, 141:7S-47S Yg MERCHANT, et al. [facility] 2017, 70: 252-289 Interpretation and review of laboratory results Abnormal [facility] PT Coag (PPP) [Time] 24.4 s High [facility] INR Coag (PPP) [Relative time] 2.4 {INR} High 0.9-1.3 [facility] Comment on above: Order Comment: Speci men Type: BLOOD SPECIMEN Ordering Facility: [facility] Address: [facility] [place] [address] Result Comment: Alissa min K Antagonist (VKA) Therapeutic Range: INR 2 to 3 (Target INR of 2.5) Note: For patients treated with VKA drugs, such as warfarin, the [employer] 2012 Guideline recommends a therapeutic INR range of 2 to 3 (target INR of 2.5). This recommendation includes high-risk patients with antiphospholipid syndrome with previous arterial or venous thromboembolism, current-generation mechanical or bioprosthetic aortic heart valve replacement. Note: Patients with mechanical aortic valve replacement and additional risk factors for thromboembolic events (atrial fibrillation, previous thromboembolism, LV dysfunction, hypercoagulable conditions) or an older generation mechanical AVR (i.e., ball in-Cage) or any mechanical MVR should have a INR therapeutic range of 2.5 to 3.5 (target INR of 3). Mckenzie GH, et al. Chest 2012, 141:7S-47S Yg RA, et al. [facility] 2017, 70: 252-289 Performed By: #### 3 4528-0 #### [facility] [id number] [address] [place] [address] [place] PT Coag (PPP) [Time] 24.4 s High 9.7-13.0 [facility] Comment on above: Order Comment: Speci men Type: BLOOD SPECIMEN Ordering Facility: [facility] Address: [address] [place] [address] Performed By: #### 3 4528-0 #### [facility] [place] [id number] [address] [place] [address] STATES [place] [facility] 05-26-2024 [facility] ([id number]) 1970 F Date Time Provider Department 05/26/24 [facility] During your visit today, we recorded the following information about you: Jimmie Carlos APRN.CNP 05/26/2024 9:14 AM Signed INR is in good range, no change to Coumadin dose. Recheck in 1 month. Jimmie Carlos APRN.SODA COLUMN OPERATOR Holiday Alejandra, MA 05/26/2024 9:47 AM Signed Pt informed Alejandra Celis DANAE Allergies As of Date: 05/26/2024 Noted Allergy Reaction [id number]- ACETAM-CAF 05/21/2008 12 - Shortness of Breath TOPAMAX (TOPIRAMATE) 07/17/2023 14 - Other: See Comments Comments: Vision changes VICODIN (HYDROCODONE-ACETAMI NOPHE*01/06/2008 8 - GI Upset Comments: nausea Date Reviewed: 09/25/2023 Reviewed by: Cynthia Jordan APRN.ROS - Fully Assessed Reason for Visit: Results [95] Primary Visit Diagnosis:Anticoagul ated on Coumadin [Z79.01] Order(s):PROTHROMBIN TIME [SQPT] Order #: [id number] FUTURE Prescriptions as of 05/26/2024 - valACYclovir (VALTREX) 1 gram tablet take 1 tablet by mouth three times a day for 7 days for herpes outbreaks - warfarin (COUMADIN) 6 mg tablet Take 4 mg M-W-F and 6 mg all the other days of the week (patient will have 2 mg rx also) - warfarin (COUMADIN) 2 mg tablet Take 4 mg M-W-F and 6 mg all other days of the week (patient has 6 mg rx also) - FLUoxetine (PROZAC) 40 mg capsule Take 1 capsule by mouth once daily. - albuterol HFA (PROAIR HFA) 90 mcg/actuation inhaler Inhale 2 Puffs as instructed every 4 hours as needed for wheezing/shortness of breath. - furosemide (LASIX) 20 mg tablet Take 1 tablet by mouth two times a day. - ferrous sulfate (SLOW FE) 140 mg (45 mg iron) TbER Take 1 tablet by mouth two times a day with meals. - buPROPion SR (WELLBUTRIN SR) 150 mg 12 hr tablet Take 1 tablet by mouth two times a day. - propranolol (INDERAL) 40 mg tablet Take 1 tablet by mouth once daily. - FLUoxetine (PROZAC) 20 mg capsule Take 1 capsule by mouth once daily. Take with 40 mg capsule to total 60 mg a day - omeprazole (PRILOSEC) 20 mg capsule Take 1 capsule by mouth once daily. - busPIRone (BUSPAR) 7.5 mg tablet Take 1 tablet by mouth at bedtime as needed (INSOMNIA). - magnesium oxide 200 mg magnesium tab Take by mouth. Pt takes twice daily - cholecalciferol, vitamin D3, 10 mcg (400 unit) cap Take 400 Units by mouth once daily. Pt takes twice daily - vitamin B complex (B COMPLEX 1 ORAL) Take by mouth. Problem List As Of Date 05/26/2024 Noted Resolved Migraine NOS/not Intrcbl [G43.099] Symptomatic Menopausal or Female Climacteric St* 10/14/2014 DVT of Upper Extremity (Deep Vein Thrombosis) [* 10/14/2014 DVT x 2 [I74.9] 05/21/2008 Factor V Leiden heterozygous [D68.9] 06/01/2008 Unspecified Site of Ankle Sprain and Strain [S9*07/30/2008 02/05/2015 Generalized Anxiety Disorder [F41.1] 11/05/2008 Routine general medical examination at [facility]*01/16/2010 07/16/2012 Class: Chronic Routine gynecological examination [Z01.419] [...] lower leg [R60.0] 06/25/2022 Encounter Status:Closed by HOLIDAY, ALEJANDRA on 05/26/24 Normal [facility] PT panel Coag (PPP)on 2023 INR Coag (PPP) [Relative time] 2.7 {INR} High 0.9-1.3 [facility] Comment on above: Order Comment: Manuela st Type: BLOOD SPECIMEN Ordering Facility: [facility] Address: [address] [place] [address] Result Comment: Alissa min K Antagonist (VKA) Therapeutic Range: INR 2 to 3 (Target INR of 2.5) Note: For patients treated with VKA drugs, such as warfarin, the [employer] 2012 Guideline recommends a therapeutic INR range of 2 to 3 (target INR of 2.5). This recommendation includes high-risk patients with antiphospholipid syndrome with previous arterial or venous thromboembolism, current-generation mechanical or bioprosthetic aortic heart valve replacement. Note: Patients with mechanical aortic valve replacement and additional risk factors for thromboembolic events (atrial fibrillation, previous thromboembolism, LV dysfunction, hypercoagulable conditions) or an older generation mechanical AVR (i.e., ball in-Cage) or any mechanical MVR should have a INR therapeutic range of 2.5 to 3.5 (target INR of 3). Mckenzie GH, et al. Chest 2012, 141:7S-47S Yg RA, et al. [facility] 2017, 70: 252-289 Performed By: #### 5 5454-3 #### [facility] CLIA [id number] [address] [place] [address] [place] PT Coag (PPP) [Time] 27.7 s High 9.7-13.0 [facility] Comment on above: Order Comment: Manuela st Type: BLOOD SPECIMEN Ordering Facility: [facility] Address: [address] [place] [address] Performed By: #### 5 5454-3 #### [facility] CLIA [id number] [address] [place] [address] [facility] Rhonda [facility]-20-20[facility]ERO HOL[facility] ([id number]) 1970 F Date Time Provider Department 05/20/24 [facility] During your visit today, we recorded the following information about you: Handy Mike DO 05/20/2024 3:45 PM Signed The following approved medication requests have been transmitted electronically. Requested Prescriptions Signed Prescriptions Disp Refills valACYclovir (VALTREX) 1 gram tablet 21 tablet 3 Sig: take 1 tablet by mouth three times a day for 7 days for herpes outbreaks Authorizing Provider: HANDY MIKE DO Allergies As of Date: 05/20/2024 Noted Allergy Reaction [id number]- ACETAM-CAF 05/21/2008 12 - Shortness of Breath TOPAMAX (TOPIRAMATE) 07/17/2023 14 - Other: See Comments Comments: Vision changes VICODIN (HYDROCODONE-ACETAMI NOPHE*01/06/2008 8 - GI Upset Comments: nausea Date Reviewed: 09/25/2023 Reviewed by: Cynthia Jordan APRN.SODA COLUMN OPERATOR - Fully Assessed Reason for Visit: Results [95] Order(s):valACYclovi r (VALTREX) 1 gram tablettake 1 tablet by mouth three times a day for 7 days for herpes outbreaksDisp: 21 tabletRfl: 3 Prescriptions as of 05/21/2024 - valACYclovir (VALTREX) 1 gram tablet take 1 tablet by mouth three times a day for 7 days for herpes outbreaks - warfarin (COUMADIN) 6 mg tablet Take 4 mg and 6 mg all the other days of the week (patient will have 2 mg rx also) - warfarin (COUMADIN) 2 mg tablet Take 4 mg -- and 6 mg all other days of the week (patient has 6 mg rx also) - FLUoxetine (PROZAC) 40 mg capsule Take 1 capsule by mouth once daily. - albuterol HFA (PROAIR HFA) 90 mcg/actuation inhaler Inhale 2 Puffs as instructed every 4 hours as needed for wheezing/shortness of breath. - furosemide (LASIX) 20 mg tablet Take 1 tablet by mouth two times a day. - ferrous sulfate (SLOW FE) 140 mg (45 mg iron) TbER Take 1 tablet by mouth two times a day with meals. - buPROPion SR (WELLBUTRIN SR) 150 mg 12 hr tablet Take 1 tablet by mouth two times a day. - propranolol (INDERAL) 40 mg tablet Take 1 tablet by mouth once daily. - FLUoxetine (PROZAC) 20 mg capsule Take 1 capsule by mouth once daily. Take with 40 mg capsule to total 60 mg a day - omeprazole (PRILOSEC) 20 mg capsule Take 1 capsule by mouth once daily. - busPIRone (BUSPAR) 7.5 mg tablet Take 1 tablet by mouth at bedtime as needed (INSOMNIA). - magnesium oxide 200 mg magnesium tab Take by mouth. Pt takes twice daily - cholecalciferol, vitamin D3, 10 mcg (400 unit) cap Take 400 Units by mouth once daily. Pt takes twice daily - vitamin B complex (B COMPLEX 1 ORAL) Take by mouth. Problem List As Of Date 05/20/2024 Noted Resolved Migraine NOS/not Intrcbl [G43.909] Symptomatic Menopausal or Female Climacteric St* 10/14/2014 DVT of Upper Extremity (Deep Vein Thrombosis) [* 10/14/2014 DVT x 2 [I74.9] 05/21/2008 Factor V Leiden heterozygous [D68.9] 06/01/2008 Unspecified Site of Ankle Sprain and Strain [S9*07/30/2008 02/05/2015 Generalized Anxiety Disorder [F41.1] 11/05/2008 Routine general medical examination at [facility]*01/16/2010 07/16/2012 Class: Chronic Routine gynecological examination [Z01.419] [...] Edema of right lower leg [R60.0] 06/25/2022 Prescriptions ordered this encounter Disp Refills Start End VALACYCLOVIR 1 GRAM TABLET 21 t* 3 05/20/2024 Sig: take 1 tablet by mouth three times a day for 7 days for herpes outbreaks Medications Discontinued During This Encounter Prescriptions - valACYclovir (VALTREX) 1 gram (Discontinued) take 1 tablet by mouth three times a day for 7 days for herpes outbreaks Encounter Status:Closed by CYNTHIA JORDAN on 05/21/24 Normal [facility] PT panel Coag (PPP)on 2023 INR Coag (PPP) [Relative time] 3.4 {INR} High 0.9-1.3 [facility] Comment on above: Order Comment: Speci men Type: BLOOD SPECIMEN Ordering Facility: [facility] Address: [address] [place] [address] Result Comment: Alissa min K Antagonist (VKA) Therapeutic Range: INR 2 to 3 (Target INR of 2.5) Note: For patients treated with VKA drugs, such as warfarin, the [employer] 2012 Guideline recommends a therapeutic INR range of 2 to 3 (target INR of 2.5). This recommendation includes high-risk patients with antiphospholipid syndrome with previous arterial or venous thromboembolism, current-generation mechanical or bioprosthetic aortic heart valve replacement. Note: Patients with mechanical aortic valve replacement and additional risk factors for thromboembolic events (atrial fibrillation, previous thromboembolism, LV dysfunction, hypercoagulable conditions) or an older generation mechanical AVR (i.e., ball in-Cage) or any mechanical MVR should have a INR therapeutic range of 2.5 to 3.5 (target INR of 3). Mckenzie HINES, et al. Chest 2012, 141:7S-47S Yg RA, et al. [facility] 2017, 70: 252-289 Performed By: #### 5 5454-3 #### [facility] [place] [id number] [address] [place] [address] [place] PT Coag (PPP) [Time] 32.6 s High 9.7-13.0 [facility] Comment on above: Order Comment: Speci men Type: BLOOD SPECIMEN Ordering Facility: [facility] Address: [address] [place] [address] Performed By: #### 5 5454-3 #### [facility] [place] [id number] [address] [place] [address] [place] Rhonda 04-28-2024 CNPN Telephone (FAMPWS) VERO HOLT ([id number]) 1970 F Date Time Provider Department 04/28/24 JIMMIE CARLOS During your visit today, we recorded the following information about you: Jimmie Carlos APRN.CNP 04/28/2024 12:42 PM Signed The following approved medication requests have been transmitted electronically. Requested Prescriptions Signed Prescriptions Disp Refills warfarin (COUMADIN) 6 mg tablet 90 tablet 2 Sig: Take 1 tablet by mouth once daily. Take 1 and 1/2 tablets (6mg) by mouth once daily EXCEPT 1 tablet (4mg) SATURDAY Authorizing Provider: JIMMIE CARLOS APRN.CNP Allergies As of Date: 04/28/2024 Noted Allergy Reaction [id number] ACETAM-CAF 05/21/2008 12 - Shortness of Breath TOPAMAX (TOPIRAMATE) 07/17/2023 14 - Other: See Comments Comments: Vision changes VICODIN (HYDROCODONE-ACETAMI NOPHE*01/06/2008 8 - GI Upset Comments: nausea Date Reviewed: 09/25/2023 Reviewed by: Cynthia Jordan APRN.CNP - Fully Assessed Visit Diagnosis:Factor V Leiden (HCC) [D68.51] Order(s):warfarin (COUMADIN) 6 mg tabletTake 1 tablet by mouth once daily. Take 1 and 1/2 tablets (6mg) by mouth once daily EXCEPT 1 tablet (4mg) SATURDAYDisp: 90 tabletRfl: 2 PROTHROMBIN TIME [SQPT] Order #: [id number] FUTURE Prescriptions as of 04/28/2024 - warfarin (COUMADIN) 6 mg tablet Take 1 tablet by mouth once daily. Take 1 and 1/2 tablets (6mg) by mouth once daily EXCEPT 1 tablet (4mg) SATURDAY - FLUoxetine (PROZAC) 40 mg capsule Take 1 capsule by mouth once daily. - albuterol HFA (PROAIR HFA) 90 mcg/actuation inhaler Inhale 2 Puffs as instructed every 4 hours as needed for wheezing/shortness of breath. - furosemide (LASIX) 20 mg tablet Take 1 tablet by mouth two times a day. - ferrous sulfate (SLOW FE) 140 mg (45 mg iron) TbER Take 1 tablet by mouth two times a day with meals. - buPROPion SR (WELLBUTRIN SR) 150 mg 12 hr tablet Take 1 tablet by mouth two times a day. - propranolol (INDERAL) 40 mg tablet Take 1 tablet by mouth once daily. - FLUoxetine (PROZAC) 20 mg capsule Take 1 capsule by mouth once daily. Take with 40 mg capsule to total 60 mg a day - omeprazole (PRILOSEC) 20 mg capsule Take 1 capsule by mouth once daily. - valACYclovir (VALTREX) 1 gram take 1 tablet by mouth three times a day for 7 days for herpes outbreaks - busPIRone (BUSPAR) 7.5 mg tablet Take 1 tablet by mouth at bedtime as needed (INSOMNIA). - magnesium oxide 200 mg magnesium tab Take by mouth. Pt takes twice daily - cholecalciferol, vitamin D3, 10 mcg (400 unit) cap Take 400 Units by mouth once daily. Pt takes twice daily - vitamin B complex (B COMPLEX 1 ORAL) Take by mouth. Problem List As Of Date 04/28/2024 Noted Resolved Migraine NOS/not Intrcbl [G43.909] Symptomatic Menopausal or Female Climacteric St* 10/14/2014 DVT of Upper Extremity (Deep Vein Thrombosis) [* 10/14/2014 DVT x 2 [I74.9] 05/21/2008 Factor V Leiden heterozygous [D68.9] 06/01/2008 Unspecified Site of Ankle Sprain and Strain [S9*07/30/2008 02/05/2015 Generalized Anxiety Disorder [F41.1] 11/05/2008 Routine general medical examination at [facility]*01/16/2010 07/16/2012 Class: Chronic Routine gynecological examination [Z01.419] [...] Edema of right lower leg [R60.0] 06/25/2022 Prescriptions ordered this encounter Disp Refills Start End WARFARIN 6 MG TABLET 90 t* 2 04/28/2024 01/23/2025 Route: ORAL Sig: Take 1 tablet by mouth once daily. Take 1 and 1/2 tablets (6mg) by mouth once daily EXCEPT 1 tablet (4mg) SATURDAY Medications Discontinued During This Encounter Prescriptions - warfarin (COUMADIN) 6 mg tablet (Discontinued) Take 1 tablet by mouth once daily. Take 1 and 1/2 tablets (6mg) by mouth once daily EXCEPT 1 tablet (4mg) SATURDAY Encounter Status:Closed by JIMMIE CARLOS on 04/28/24 Normal [facility] Respiratory Cultureon 2023 RESPC Streptococcus agalactiae (B) Amount Growth 3+ Streptococcus agalactiae (B): REACTION Ampicillin Islt VERNA <=0.25 S Penicillin G Islt VERNA <=0.06 S cefTRIAXone Islt VERNA <=0.12 S Clindamycin Islt VERNA <=0.25 S Clindamycin.induced Susc Islt NEG Linezolid Islt VERNA <=2 S Vancomycin Islt VERNA 0.5 S Normal [facility] Comment on above: Performed By: #### M 100.2000, M100.2400 #### [facility] [place], [address] Absolute lymphocyte countOrd ered By: Kalina Caicedo on 08-10-2023 Lymphocytes Auto (Unsp spec) [#/Vol] 1.05 10*3/uL 0.83-4.51 [facility] Automated lymphocyte count a s percentage of total leukocytesOrdered By: Kalina Caicedo on 08-10-2023 Lymphocytes/100 WBC Auto (Unsp spec) 33.8 % 19-41 [facility] Basic Metabolic Profile (BMP )on 08-10-2023 BUN/CRE 12.3 RATIO Normal 10-20 [facility] Comment on above: Performed By: #### L 100.0100, L500.2500 #### [facility] [address] [place], [address] CA,Total 8.7 mg/dL Normal 8.5-10.1 [facility] Comment on above: Performed By: #### L 100.0100, L500.2500 #### [facility] [address] [place], [address] Chloride [Moles/Vol] 105 mmol/L Normal 98-107 [facility] Comment on above: Performed By: #### L 100.0100, L500.2500 #### [facility] [address] [place], [address] CO2 [Moles/Vol] 30.0 mmol/L Normal 21.0-32.0 [facility] Comment on above: Performed By: #### L 100.0100, L500.2500 #### [facility] [address] [place], [address] Creatinine [Mass/Vol] 1.06 mg/dL High 0.55-1.02 [facility] Comment on above: Result Comment: The validity of the calculated GFR GFRAA in patients over 70 years has not been determined. Clinical correlation is essential. Performed By: #### L 100.0100, L500.2500 #### [facility] [address] [place], [address] ECRCL 74.03 ml/min Normal [facility] Comment on above: Performed By: #### L 100.0100, L500.2500 #### [facility] [address] [place], [address] EST GFR - AA 69 mL/min Normal >60 [facility] Comment on above: Result Comment: Afri can Pakistani GFR Calc Performed By: #### L 100.0100, L500.2500 #### [facility] [address] [place], [address] GAP 5 Normal 5-15 [facility] Comment on above: Performed By: #### L 100.0100, L500.2500 #### [facility] [address] [place], [address] GFR/1.73 sq M.predicted among non-blacks MDRD (S/P/Bld) [Vol rate/Area] 57 mL/min/{1.73_m2} Low >60 [facility] Comment on above: Result Comment: Non- GFR Calc Performed By: #### L 100.0100, L500.2500 #### [facility] [address] [place], [address] Glucose [Mass/Vol] 86 mg/dL Normal 74-106 [facility] Comment on above: Performed By: #### L 100.0100, L500.2500 #### [facility] [address] [place], [address] Potassium [Moles/Vol] 3.6 mmol/L Normal 3.5-5.1 [facility] Comment on above: Performed By: #### L 100.0100, L500.2500 #### [facility] [address] [place], [address] Sodium [Moles/Vol] 140 mmol/L Normal 136-145 [facility] Comment on above: Performed By: #### L 100.0100, L500.2500 #### [facility] [address] [place], [address] Urea nitrogen [Mass/Vol] 13 mg/dL Normal 7-18 [facility] Comment on above: Performed By: #### L 100.0100, L500.2500 #### [facility] [address] [place], [address] Basophil percentageOrdered B y: Kalina Caicedo on 08-10-2023 Basophils/100 WBC (Bld) 0.3 % 0-1 [facility] Chloride [Moles/Vol] 105 mmol/L 98-107 [facility] Eosinophils/100 WBC (Bld) 2.6 % 0-5 [facility] Glucose [Mass/Vol] 86 mg/dL 74-106 [facility] Hemoglobin (Bld) [Mass/Vol] 11.7 g/dL 12.0-15.0 [facility] Monocytes/100 WBC (Bld) 10.3 % 0-10 [facility] Neutrophils (Bld) [#/Vol] 1.6 10*3/uL 2.0-7.7 [facility] Neutrophils/100 WBC (Bld) 51.7 % 47-70 [facility] Potassium [Moles/Vol] 3.6 mmol/L 3.5-5.1 [facility] Sodium [Moles/Vol] 140 mmol/L 136-145 [facility] WBC (Bld) [#/Vol] 3.1 10*3/uL 4.4-11.0 [facility] CBC W/Diff, Automatedon Absolute Lymph 1.05 X10 3/uL Normal 0.83-4.51 [facility] Comment on above: Performed By: #### L 100.0100, L500.2500 #### [facility] [address] [place], [address] Absolute Neut 1.6 X10 3/uL Low 2.0-7.7 [facility] Comment on above: Performed By: #### L 100.0100, L500.2500 #### [facility] [address] [place], [address] Basophils/100 WBC (Bld) 0.3 % Normal 0-1 [facility] Comment on above: Performed By: #### L 100.0100, L500.2500 #### [facility] [address] [place], [address] Eosinophils/100 WBC (Bld) 2.6 % Normal 0-5 [facility] Comment on above: Performed By: #### L 100.0100, L500.2500 #### [facility] [address] [place], [address] Erythrocyte distribution width (RBC) [Ratio] 13.0 % Normal 11.6-14.6 [facility] Comment on above: Performed By: #### L 100.0100, L500.2500 #### [facility] [address] [place], [address] Hematocrit (Bld) [Volume fraction] 34.8 % Low 37-47 [facility] Comment on above: Performed By: #### L 100.0100, L500.2500 #### [facility] [address] [place], [address] Hemoglobin (Bld) [Mass/Vol] 11.7 g/dL Low 12.0-15.0 [facility] Comment on above: Performed By: #### L 100.0100, L500.2500 #### [facility] [address] [place], [address] IG% 1.300 High 0.0-0.9 [facility] Comment on above: Result Comment: IG% - Immature Granulocytes (promyelocytes, myelocytes and metamyelocytes) > 1% indicates that a LEFT SHIFT is Present. Performed By: #### L 100.0100, L500.2500 #### [facility] [address] [place], [address] Lymphocytes/100 WBC (Bld) 33.8 % Normal 19-41 [facility] Comment on above: Performed By: #### L 100.0100, L500.2500 #### [facility] [address] [place], [address] MCH (RBC) [Entitic mass] 31.8 pg Normal 27.0-32.0 [facility] Comment on above: Performed By: #### L 100.0100, L500.2500 #### [facility] [address] [place], [address] MCHC (RBC) [Mass/Vol] 33.6 g/dL Normal 32-36 [facility] Comment on above: Performed By: #### L 100.0100, L500.2500 #### [facility] [address] [place], [address] MCV (RBC) [Entitic vol] 94.6 fL Normal 81-99 [facility] Comment on above: Performed By: #### L 100.0100, L500.2500 #### [facility] [address] [place], [address] Monocytes/100 WBC (Bld) 10.3 % High 0-10 [facility] Comment on above: Performed By: #### L 100.0100, L500.2500 #### [facility] [address] [place], [address] Neutrophils/100 WBC (Bld) 51.7 % Normal 47-70 [facility] Comment on above: Performed By: #### L 100.0100, L500.2500 #### [facility] [address] [place], [address] Nucleated RBC (Bld) [#/Vol] 0 10*3/uL Normal 0-5 [facility] Comment on above: Performed By: #### L 100.0100, L500.2500 #### [facility] [address] [place], [address] Platelet mean volume (Bld) [Entitic vol] 8.4 fL Normal 6.2-12.0 [facility] Comment on above: Performed By: #### L 100.0100, L500.2500 #### [facility] [address] [place], [address] Platelets (Bld) [#/Vol] 227 10*3/uL Normal 150-450 [facility] Comment on above: Performed By: #### L 100.0100, L500.2500 #### [facility] [address] [place], [address] RBC (Bld) [#/Vol] 3.68 10*6/uL Low 4.2-5.4 [facility] Comment on above: Performed By: #### L 100.0100, L500.2500 #### [facility] [address] [place], [address] RDW SD 44.2 fl High 35.1-43.9 [facility] Comment on above: Performed By: #### L 100.0100, L500.2500 #### [facility] [address] [place], [address] WBC (Bld) [#/Vol] 3.1 10*3/uL Low 4.4-11.0 [facility] Comment on above: Performed By: #### L 100.0100, L500.2500 #### [facility] [address] [place], [address] Determination of erythrocyte mean corpuscular volume (MCV)Ordered By: Kalina Caicedo on 08-10-2023 MCV (RBC) [Entitic vol] 94.6 fL 81-99 [facility] Erythrocyte distribution wid th ratioOrdered By: Kalina Caicedo on 08-10-2023 Erythrocyte distribution width (RBC) [Ratio] 13.0 % 11.6-14.6 [facility] Erythrocyte distribution wid th standard deviationOrdered By: Kalina Caicedo on 08-10-2023 Erythrocyte distribution width (RBC) [Entitic vol] 44.2 fL 35.1-43.9 [facility] Gram Stainon 08-10-2023 GS Acceptable Specimen? Yes (<25 Epithelial cells per/lpf) Gram Stain 2+ Gram positive cocci 4+ Gram positive rods 1+ Epithelial cells 1+ White Blood Cells Normal [facility] Comment on above: Performed By: #### M 100.2000, M100.2400 #### [facility] [address] [place], [address] Hematocrit Auto (Bld) [Volum e fraction]Ordered By: Kalina Caicedo on 08-10-2023 Hematocrit (Bld) [Volume fraction] 34.8 % 37-47 [facility] Immature granulocytes/100 WB C Auto (Bld)Ordered By: Kalina Caicedo on 08-10-2023 Immature granulocytes/100 WBC (Bld) 1.300 % 0.0-0.9 [facility] Comment on above: IG% - Immature Granu locytes (promyelocytes, myelocytes and metamyelocytes) > 1% indicates that a LEFT SHIFT is Present. Laboratory - Chemistry and C hemistry - challengeOrdered By: Kalina Caicedo on 08-10-2023 CO2 [Moles/Vol] 30.0 mmol/L 21.0-32.0 [facility] Urea nitrogen/Creatinine [Mass ratio] 12.3 mg/mg 10-20 [facility] - CoagulationOrde red By: Kalina Caicedo on 08-10-2023 INR Coag (Bld) [Relative time] 1.7 {INR} [facility] PT Coag (PPP) [Time] 19.8 s 11.7-14.9 [facility] - Hematology and Cell countsOrdered By: Kalina Caicedo on 08-10-2023 MCH (RBC) [Entitic mass] 31.8 pg 27.0-32.0 [facility] MCHC (RBC) [Mass/Vol] 33.6 g/dL 32-36 [facility] Nucleated RBC/100 WBC (Bld) [Ratio] 0 % 0-5 [facility] Platelet mean volume (Bld) [Entitic vol] 8.4 fL 6.2-12.0 [facility] Platelets (Bld) [#/Vol] 227 10*3/uL 150-450 [facility] No Panel InformationOrdered By: Kalina Caicedo on 08-10-2023 Estimated Creatinine Clearance Calc 74.03 ml/min [facility] Estimated GFR (MDRD) Amer 69 mL/min >60 [facility] Comment on above: GFR Calc Estimated GFR (MDRD) Non-Af Amer 57 mL/min >60 [facility] Comment on above: Non- GFR Calc Prothrombin Time w/INRon INR Coag (PPP) [Relative time] 1.7 {INR} Normal [facility] Comment on above: Performed By: #### M 100.1999, M100.2400 #### [facility] [address] [place], [address] PT Coag (PPP) [Time] 19.8 s High 11.7-14.9 [facility] Comment on above: Performed By: #### M 100.1999, M100.2400 #### [facility] [address] [place], [address] RBC Auto (Bld) [#/Vol]Ordere d By: Kalina Caicedo on 08-10-2023 RBC (Bld) [#/Vol] 3.68 10*6/uL 4.2-5.4 [facility] Serum or plasma calcium jacqueline urement (mass/volume)Ordered By: Kalina Caicedo on 08-10-2023 Calcium [Mass/Vol] 8.7 mg/dL 8.5-10.1 [facility] Serum or plasma creatinine m easurement (mass/volume)Ordered By: Kalina Caicedo on 08-10-2023 Creatinine [Mass/Vol] 1.06 mg/dL 0.55-1.02 [facility] Comment on above: The validity of the calculated GFR & GFRAA in patients over 70 years has not been determined. Clinical correlation is essential. Serum or plasma urea nitroge n measurement (mass/volume)Ordered By: Kalina Caicedo on 08-10-2023 Urea nitrogen [Mass/Vol] 13 mg/dL 7-18 [facility] Thin prep Papanicolaou smear with manual screeningOrdered By: Kalina Caicedo on 08-10-2023 Thin prep Papanicolaou smear with manual screening 5 5-15 [facility] Venous Blood Gason 4 Blood Gas Type GILL Normal [facility] Comment on above: Performed By: #### M , .240 #### [facility] [address] [place], [address] CO2 [Moles/Vol] 33 mmol/L Normal 23-33 [facility] Comment on above: Performed By: #### M , 240 #### [facility] [address] [place], [address] HCO3 (Bld) [Moles/Vol] 32 mmol/L High 22-26 [facility] Comment on above: Performed By: #### M , 240 #### [facility] [address] [place], [address] O2 Delivery Dev Not entered Normal [facility] Comment on above: Performed By: #### M , #### [facility] [address] [place], [address] SITE Not entered [facility] Comment on above: Performed By: #### M , 240 #### [facility] [address] [place], [address] VBG BE 8 mmol/L High -1.0-3.5 [facility] Comment on above: Performed By: #### M , 240 #### [facility] [address] [place], [address] VBG pCO2 46.4 mmHg Normal 41-51 [facility] Comment on above: Performed By: #### M , #### [facility] [address] [place], [address] VBG pH 7.44 High 7.32-7.42 [facility] Comment on above: Performed By: #### M , #### [facility] [address] [place], [address] VBG PO2 50 mmHg High 25-40 [facility] Comment on above: Performed By: #### M , #### [facility] [address] [place], [address] VBG SO2 86 High 50-70 [facility] Comment on above: Performed By: #### M , #### [facility] [address] [place], [address] Base excessOrdered By: Stan Caicedo on 08-09-2023 Base excess Calc (BldV) [Moles/Vol] 8 mmol/L -1.0-3.5 [facility] Basic Metabolic Profile (BMP )on 08-09-2023 BUN/CRE 11.3 RATIO Normal 10-20 [facility] Comment on above: Performed By: #### L 500.2500 #### [facility] [address] [place], [address] CA,Total 8.3 mg/dL Low 8.5-10.1 [facility] Comment on above: Performed By: #### L 500.2500 #### [facility] [address] [place], [address] Chloride [Moles/Vol] 102 mmol/L Normal 98-107 [facility] Comment on above: Performed By: #### L 500.2500 #### [facility] [address] [place], [address] CO2 [Moles/Vol] 33.0 mmol/L High 21.0-32.0 [facility] Comment on above: Performed By: #### L 500.2500 #### [facility] [address] [place], [address] Creatinine [Mass/Vol] 1.06 mg/dL High 0.55-1.02 [facility] Comment on above: Result Comment: The validity of the calculated GFR GFRAA in patients over 70 years has not been determined. Clinical correlation is essential. Performed By: #### L 500.2500 #### [facility] [address] [place], [address] ECRCL 74.03 ml/min Normal [facility] Comment on above: Performed By: #### L 500.2500 #### [facility] [address] [place], [address] EST GFR - AA 69 mL/min Normal >60 [facility] Comment on above: Result Comment: Afri can Pakistani GFR Calc Performed By: #### L 500.2500 #### [facility] [address] [place], [address] GAP 4 Low 5-15 [facility] Comment on above: Performed By: #### L 500.2500 #### [facility] [address] [place], [address] GFR/1.73 sq M.predicted among non-blacks MDRD (S/P/Bld) [Vol rate/Area] 57 mL/min/{1.73_m2} Low >60 [facility] Comment on above: Result Comment: Non- GFR Calc Performed By: #### L 500.2500 #### [facility] [address] [place], [address] Glucose [Mass/Vol] 96 mg/dL Normal 74-106 [facility] Comment on above: Performed By: #### L 500.2500 #### [facility] [address] [place], [address] Potassium [Moles/Vol] 3.0 mmol/L Low 3.5-5.1 [facility] Comment on above: Performed By: #### L 500.2500 #### [facility] [address] [place], [address] Sodium [Moles/Vol] 139 mmol/L Normal 136-145 [facility] Comment on above: Performed By: #### L 500.2500 #### [facility] [address] [place], [address] Urea nitrogen [Mass/Vol] 12 mg/dL Normal 7-18 [facility] Comment on above: Performed By: #### L 500.2500 #### [facility] [address] [place], [address] CBC W/Diff, Automatedon 03-0 1-2024 Absolute Lymph 0.85 X10 3/uL Normal 0.83-4.51 [facility] Comment on above: Performed By: #### L 100.0100 #### [facility] [address] [place], [address] Absolute Neut 2.4 X10 3/uL Normal 2.0-7.7 [facility] Comment on above: Performed By: #### L 100.0100 #### [facility] [address] [place], [address] Basophils/100 WBC (Bld) 0.5 % Normal 0-1 [facility] Comment on above: Performed By: #### L 100.0100 #### [facility] [address] [place], [address] Eosinophils/100 WBC (Bld) 1.6 % Normal 0-5 [facility] Comment on above: Performed By: #### L 100.0100 #### [facility] [address] [place], [address] Erythrocyte distribution width (RBC) [Ratio] 12.9 % Normal 11.6-14.6 [facility] Comment on above: Performed By: #### L 100.0100 #### [facility] [address] [place], [address] Hematocrit (Bld) [Volume fraction] 32.9 % Low 37-47 [facility] Comment on above: Performed By: #### L 100.0100 #### [facility] [address] [place], [address] Hemoglobin (Bld) [Mass/Vol] 11.0 g/dL Low 12.0-15.0 [facility] Comment on above: Performed By: #### L 100.0100 #### [facility] [address] [place], [address] IG% 1.800 High 0.0-0.9 [facility] Comment on above: Result Comment: IG% - Immature Granulocytes (promyelocytes, myelocytes and metamyelocytes) > 1% indicates that a LEFT SHIFT is Present. Performed By: #### L 100.0100 #### [facility] [address] [place], [address] Lymphocytes/100 WBC (Bld) 22.1 % Normal 19-41 [facility] Comment on above: Performed By: #### L 100.0100 #### [facility] [address] [place], [address] MCH (RBC) [Entitic mass] 31.3 pg Normal 27.0-32.0 [facility] Comment on above: Performed By: #### L 100.0100 #### [facility] [address] [place], [address] MCHC (RBC) [Mass/Vol] 33.4 g/dL Normal 32-36 [facility] Comment on above: Performed By: #### L 100.0100 #### [facility] [address] [place], [address] MCV (RBC) [Entitic vol] 93.7 fL Normal 81-99 [facility] Comment on above: Performed By: #### L 100.0100 #### [facility] [address] [place], [address] Monocytes/100 WBC (Bld) 10.7 % High 0-10 [facility] Comment on above: Performed By: #### L 100.0100 #### [facility] [address] [place], [address] Neutrophils/100 WBC (Bld) 63.3 % Normal 47-70 [facility] Comment on above: Performed By: #### L 100.0100 #### [facility] [address] [place], [address] Nucleated RBC (Bld) [#/Vol] 0 10*3/uL Normal 0-5 [facility] Comment on above: Performed By: #### L 100.0100 #### [facility] [address] [place], [address] Platelet mean volume (Bld) [Entitic vol] 7.9 fL Normal 6.2-12.0 [facility] Comment on above: Performed By: #### L 100.0100 #### [facility] [address] [place], [address] Platelets (Bld) [#/Vol] 200 10*3/uL Normal 150-450 [facility] Comment on above: Performed By: #### L 100.0100 #### [facility] [address] [place], [address] RBC (Bld) [#/Vol] 3.51 10*6/uL Low 4.2-5.4 [facility] Comment on above: Performed By: #### L 100.0100 #### [facility] [address] [place], [address] RDW SD 43.7 fl Normal 35.1-43.9 [facility] Comment on above: Performed By: #### L 100.0100 #### [facility] [address] [place], [address] WBC (Bld) [#/Vol] 3.8 10*3/uL Low 4.4-11.0 [facility] Comment on above: Performed By: #### L 100.0100 #### [facility] [address] [place], [address] CO2 (BldV) [Moles/Vol]Ordere d By: Kalina Caicedo on 08-09-2023 CO2 [Moles/Vol] 33 mmol/L - [facility] Consultation - [employer] 08-09-2023 Consultation - [employer] [facility] Medical Records Department [address] [place] [address] Consultation - [employer] 08/09/23 0849 MR#: [id number] Acct: [id number] Name: VERO HOLT Rep #: [id number] : 1970 53 From: Ambrosio Snow MD PCP: Dr. Handy Mike, DO Status:ADM IN Location: [place] [address] Assessment Plan Assessment/Plan (1) Shortness of breath: (2) Factor V Leiden: (3) Influenza A: PLAN: Plan RECOMMENDATIONS: 1. Encourage incentive spirometer and Acapella 2. Discontinue codeine. Add Mucinex 3. Check nasal MRSA swab 4. Reinitiate diuretics 5. Consider room air ABG and walking oximetry prior to discharge 6. Repeat CT scan in 6 to 8 weeks to document resolution 7. Outpatient complete PFT for evaluation of underlying obstructive lung disease IMPRESSIONS: 1. Acute hypoxic respiratory insufficiency with recent influenza A Patient reportedly was diagnosed with influenza A approximately 2 weeks ago. It is unclear if swab represents a repeat infection or just persistence of genetic material. Patient would be at risk for possible subsequent bacterial infection, but does not have a significant fever or leukocytosis at this time. Will obtain a MRSA swab to be sure that vancomycin does not need to be added empirically pending cultures. Will discontinue codeine, add Mucinex, incentive spirometer and Acapella for pulmonary recruitment. Patient will likely require a CT scan in 6 to 8 weeks to document resolution. Patient has been noncompliant with Coumadin and Lasix therapy, but no PE was noted on CTA of the chest. Would recommend reinitiation of diuretics. Patient does have an elevated bicarbonate, so obesity hypoventilation would be a concern. Could obtain a room air ABG once patient is off of supplemental oxygen. Given patient's requirements of oxygen, outpatient w orkup with a complete PFT would be appropriate to evaluate for possible underlying obstructive lung disease such as asthma, which may lead to increased infiltrates following a viral infection. 2. Factor V Leiden/morbid obesity/poor compliance/depressio n Complicates care, management, recovery and prognosis. Patient would likely benefit from an outpatient sleep workup. Patient may require lower extremity Dopplers for evaluation of DVT given subtherapeutic INR if lower extremity edema does not improve with diuretics alone. Okay to continue with baseline fluoxetine from my perspective. HPI Consult Data Date of Consult: 08/09/23 HPI Narrative HPI Narrative: VERO HOLT is a 53 F, with past medical history listed below, who presents to [facility] on 08/08/2023 secondary to progressive shortness of breath over the last 2 to 3 days. Patient does have a history of factor V Leiden and multiple DVTs in the past. Patient reportedly has not been taking her Coumadin or Lasix over the last 2 weeks. Patient reportedly had tested positive for influenza A and was having some nausea. Patient had reported some increased lower extremity edema. Patient had also reported some pleuritic type chest pains. Patient went to see her PCP and was encouraged to come to the ED to rule out PE. Patient was noted to be 89% on room air. Patient reports a wet cough, but no fevers, chills, chest or abdominal pain. In the ER, patient was afebrile, but slightly tachypneic at 22 breaths/min. Patient was normotensive and initially was saturating well on room air. Laboratory data showed a white blood cell count of 4.8, hemoglobin of 11.7 and platelets of 237. INR was only 1.6 with a creatinine of 1 .04 and a bicarbonate of 32. Glucose was within normal limits. A CTA of the chest showed no PE, bu t diffuse bilateral groundglass opacities. Patient was given Rocephin and azithromycin and admitted to the hospital for further evaluation. Since being admitted to the hospital, patient has tested positive for influenza A. Patient has been requiring 2 L nasal cannula to maintain saturations. Patient is not reporting any current hemoptysis or sinus congestion. Patient denies any history of previous lung disease. 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 Patient denies any exposure to asbestos or TB. No traumatic or travel history has been reported. Patient does not have any exposure to birds or bats. Patient does have a puppy, but is never required any inhaler for asthma that she is aware of. Patient has not required supplemental oxygen previously. Patient states she has never had a PFT or seen a central office repairer. Review of systems otherwise negative from a constitutional, HEENT, respiratory, cardiovascular, GI, genitourinary, musculoskeletal, skin, neurologic, psychiatric and hematologic system unless stated above. [facility] Medical History Abnormal Pap smear of cervix Anxiety Chest pain D (more content not included)... Normal [facility] - Chemistry and C hemistry - challengeOrdered By: Kalina Caicedo on 08-09-2023 HCO3 (Bld) [Moles/Vol] 32 mmol/L - [facility] M8200.1000on 08-09-2023 M8200.1000 Normal Reference Range = Negative MRSA DNA Nose Ql ILEANA+probe GeneXpert Instrument, PCR method MRSA PCR MRSA NEGATIVE Normal [facility] Comment on above: Performed By: #### M 8200.1000 #### [facility], [address] No Panel InformationOrdered By: Kalina Caicedo on 08-09-2023 Blood Gas Sample Site Not entered [facility] Blood Gas Specimen Type [facility] Oxygen Delivery Device Not entered [facility] PCO2 venousOrdered By: Stan Caicedo on 08-09-2023 CO2 (BldV) [Partial pressure] 46.4 mm[Hg] 41-51 [facility] PO2 venousOrdered By: Latoya Caicedo on 08-09-2023 Oxygen (BldV) [Partial pressure] 50 mm[Hg] 25-40 [facility] RESPIRATORY PANEL MOLECULARo n 08-09-2023 RP PANEL RESULTS CALLED TO [facility] 08/08/23 2236 Lennie Porter. REPORT READ BACK BY SAME. Normal Reference Range = Not Detected Resp path DNA+RNA Pnl Resp ILEANA+probe Nucleic acid amplification test method Resp path DNA+RNA Pnl Resp ILEANA+probe Copy of report sent to Infection Control Printer [id number] 08/09/23 6179 JONATAN. ADENOVIRUS Not Detected INFLUENZA A Not Detected INFLUENZA A (SUBTYPE H1) A Positive for INFLUENZA A SUBTYPE H1 by NAAT technologyA INFLUENZA A (SUBTYPE H3) Not Detected INFLUENZA B Not Detected HUMAN METAPHNEUMO Not Detected PARAINFLUENZA 1 Not Detected PARAINFLUENZA 2 Not Detected PARAINFLUENZA 3 Not Detected PARAINFLUENZA 4 Not Detected RHINOVIRUS Not Detected RSV A Not Detected RSV B Not Detected INFLUENZA A (SUBTYPE H1) * This is an amended result. * A prior result that was reported as final has been changed. 08/09/23 1238 by JONATAN Normal [facility] Comment on above: Performed By: #### M 100.2000, M100.2400 #### [facility] [address] [place], [address] Venous blood pH measurementO rdered By: Kalina Caicedo on 08-09-2023 pH (BldV) 7.44 [pH] 7.32-7.42 [facility] Vital signsOrdered By: Stan Caicedo on 08-09-2023 Oxygen saturation in Blood 86 % 50-70 [facility] 12 Lead EKGon 08-08-[address] [facility] [address] [place] [address] 12 Lead EKG 08/08/23 1538 MR#: [id number] Acct: [id number] Name: VERO HOLT Rep #: [id number] : 1970 53 From: Didi Delatorre MD Attending Dr: Dr. Kalina Caicedo DO Status: DIS I N Ordering Dr: Tri Farias Date: 08/08/23 Location: [facility] Sex: F C Admitted: 08/08/23 Test Reason : DYSRHYTHMIA Blood Pressure : / mmHG Vent. Rate : 078 BPM Atrial Rate : 078 BPM P-R Int : 116 ms QRS Dur : 076 ms QT Int : 436 ms P-R-T Axes : 022 039 068 degrees QTc Int : 497 ms Poor data quality, interpretation may be adversely affected Normal sinus rhythm ST T wave abnormality, consider anterior ischemia Abnormal ECG Confirmed by ALISON CAICEDO, KARRI ([id number]), communications editor VERONICA LIN ([id number]) on 08/12/2023 9:18:42 AM Referred By: DK Confirmed By:DOTTIE DELATORRE MD 08/12/23 0918 Date Didi Delatorre MD CC: Dr. Handy Mike, ; Dr. Kalina Caicedo, DO; ROSARIO Miranda Signed Normal [facility] Absolute lymphocyte countOrd ered By: Tri Farias on 08-08-2023 Lymphocytes Auto (Unsp spec) [#/Vol] 1.19 10*3/uL 0.83-4.51 [facility] Automated lymphocyte count a s percentage of total leukocytesOrdered By: Tri Farias on 08-08-2023 Lymphocytes/100 WBC Auto (Unsp spec) 24.6 % 19-41 [facility] BNP,B-Type NATRIURETIC PEPTI Radha 08-08-2023 Natriuretic peptide B (Bld) [Mass/Vol] 59.7 pg/mL Normal 0-100 [facility] Comment on above: Performed By: #### M , #### [facility] [address] [place], [address] Basic Metabolic Profile (BMP )on 08-08-2023 BUN/CRE 14.4 RATIO Normal 10-20 [facility] Comment on above: Order Comment: 'TROP ' Serial specimen #1, #2 or #3: 1 Performed By: #### M , #### [facility] [address] [place], [address] CA,Total 8.5 mg/dL Normal 8.5-10.1 [facility] Comment on above: Order Comment: 'TROP ' Serial specimen #1, #2 or #3: 1 Performed By: #### M , #### [facility] [address] [place], [address] Chloride [Moles/Vol] 102 mmol/L Normal 98-107 [facility] Comment on above: Order Comment: 'TROP ' Serial specimen #1, #2 or #3: 1 Performed By: #### M , #### [facility] [address] [place], [address] CO2 [Moles/Vol] 32.0 mmol/L Normal 21.0-32.0 [facility] Comment on above: Order Comment: 'TROP ' Serial specimen #1, #2 or #3: 1 Performed By: #### M , #### [facility] [address] [place], [address] Creatinine [Mass/Vol] 1.04 mg/dL High 0.55-1.02 [facility] Comment on above: Order Comment: 'TROP ' Serial specimen #1, #2 or #3: 1 Result Comment: The validity of the calculated GFR GFRAA in patients over 70 years has not been determined. Clinical correlation is essential. Performed By: #### M , #### [facility] [address] [place], [address] ECRCL 76.78 ml/min Normal [facility] Comment on above: Order Comment: 'TROP ' Serial specimen #1, #2 or #3: 1 Performed By: #### M , #### [facility] [address] [place], [address] EST GFR - AA 71 mL/min Normal >60 [facility] Comment on above: Order Comment: 'TROP ' Serial specimen #1, #2 or #3: 1 Result Comment: Afri can Pakistani GFR Calc Performed By: #### M , #### [facility] [address] [place], [address] GAP 5 Normal 5-15 [facility] Comment on above: Order Comment: 'TROP ' Serial specimen #1, #2 or #3: 1 Performed By: #### M , #### [facility] [address] [place], [address] GFR/1.73 sq M.predicted among non-blacks MDRD (S/P/Bld) [Vol rate/Area] 58 mL/min/{1.73_m2} Low >60 [facility] Comment on above: Order Comment: 'TROP ' Serial specimen #1, #2 or #3: 1 Result Comment: Non- GFR Calc Performed By: #### M , #### [facility] [address] [place], [address] Glucose [Mass/Vol] 96 mg/dL Normal 74-106 [facility] Comment on above: Order Comment: 'TROP ' Serial specimen #1, #2 or #3: 1 Performed By: #### M , #### [facility] [address] [place], [address] Potassium [Moles/Vol] 3.5 mmol/L Normal 3.5-5.1 [facility] Comment on above: Order Comment: 'TROP ' Serial specimen #1, #2 or #3: 1 Result Comment: Slig ht Hemolysis, Result may be falsely increased. Performed By: #### M , #### [facility] [address] [place], [address] Sodium [Moles/Vol] 139 mmol/L Normal 136-145 [facility] Comment on above: Order Comment: 'TROP ' Serial specimen #1, #2 or #3: 1 Performed By: #### M , #### [facility] [address] [place], [address] Urea nitrogen [Mass/Vol] 15 mg/dL Normal 7-18 [facility] Comment on above: Order Comment: 'TROP ' Serial specimen #1, #2 or #3: 1 Performed By: #### M , #### [facility] [address] [place], [address] Basophil percentageOrdered B y: Tri Farias on 08-08-2023 Basophils/100 WBC (Bld) 0.4 % 0-1 [facility] Chloride [Moles/Vol] 102 mmol/L 98-107 [facility] Eosinophils/100 WBC (Bld) 1.4 % 0-5 [facility] Glucose [Mass/Vol] 96 mg/dL 74-106 [facility] Hemoglobin (Bld) [Mass/Vol] 11.7 g/dL 12.0-15.0 [facility] Monocytes/100 WBC (Bld) 8.9 % 0-10 [facility] Neutrophils (Bld) [#/Vol] 3.1 10*3/uL 2.0-7.7 [facility] Neutrophils/100 WBC (Bld) 63.3 % 47-70 [facility] Potassium [Moles/Vol] 3.5 mmol/L 3.5-5.1 [facility] Comment on above: Slight Hemolysis, Re sult may be falsely increased. Sodium [Moles/Vol] 139 mmol/L 136-145 [facility] WBC (Bld) [#/Vol] 4.8 10*3/uL 4.4-11.0 [facility] CBC W/Diff, Automatedon 07-12 Absolute Lymph 1.19 X10 3/uL Normal 0.83-4.51 [facility] Comment on above: Performed By: #### L 500.2500, L501.4020, L100.0100 #### [facility] [address] [place], [address] Absolute Neut 3.1 X10 3/uL Normal 2.0-7.7 [facility] Comment on above: Performed By: #### L 500.2500, L501.4020, L100.0100 #### [facility] [address] [place], [address] Basophils/100 WBC (Bld) 0.4 % Normal 0-1 [facility] Comment on above: Performed By: #### L 500.2500, L501.4020, L100.0100 #### [facility] [address] [place], [address] Eosinophils/100 WBC (Bld) 1.4 % Normal 0-5 [facility] Comment on above: Performed By: #### L 500.2500, L501.4020, L100.0100 #### [facility] [address] [place], [address] Erythrocyte distribution width (RBC) [Ratio] 12.9 % Normal 11.6-14.6 [facility] Comment on above: Performed By: #### L 500.2500, L501.4020, L100.0100 #### [facility] [address] [place], [address] Hematocrit (Bld) [Volume fraction] 35.2 % Low 37-47 [facility] Comment on above: Performed By: #### L 500.2500, L501.4020, L100.0100 #### [facility] [address] [place], [address] Hemoglobin (Bld) [Mass/Vol] 11.7 g/dL Low 12.0-15.0 [facility] Comment on above: Performed By: #### L 500.2500, L501.4020, L100.0100 #### [facility] [address] [place], [address] IG% 1.400 High 0.0-0.9 [facility] Comment on above: Result Comment: IG% - Immature Granulocytes (promyelocytes, myelocytes and metamyelocytes) > 1% indicates that a LEFT SHIFT is Present. Performed By: #### L 500.2500, L501.4020, L100.0100 #### [facility] [address] [place], [address] Lymphocytes/100 WBC (Bld) 24.6 % Normal 19-41 [facility] Comment on above: Performed By: #### L 500.2500, L501.4020, L100.0100 #### [facility] [address] [place], [address] MCH (RBC) [Entitic mass] 31.1 pg Normal 27.0-32.0 [facility] Comment on above: Performed By: #### L 500.2500, L501.4020, L100.0100 #### [facility] [address] [place], [address] MCHC (RBC) [Mass/Vol] 33.2 g/dL Normal 32-36 [facility] Comment on above: Performed By: #### L 500.2500, L501.4020, L100.0100 #### [facility] [address] [place], [address] MCV (RBC) [Entitic vol] 93.6 fL Normal 81-99 [facility] Comment on above: Performed By: #### L 500.2500, L501.4020, L100.0100 #### [facility] [address] [place], [address] Monocytes/100 WBC (Bld) 8.9 % Normal 0-10 [facility] Comment on above: Performed By: #### L 500.2500, L501.4020, L100.0100 #### [facility] [address] [place], [address] Neutrophils/100 WBC (Bld) 63.3 % Normal 47-70 [facility] Comment on above: Performed By: #### L 500.2500, L501.4020, L100.0100 #### [facility] [address] [place], [address] Nucleated RBC (Bld) [#/Vol] 0 10*3/uL Normal 0-5 [facility] Comment on above: Performed By: #### L 500.2500, L501.4020, L100.0100 #### [facility] [address] [place], [address] Platelet mean volume (Bld) [Entitic vol] 8.4 fL Normal 6.2-12.0 [facility] Comment on above: Performed By: #### L 500.2500, L501.4020, L100.0100 #### [facility] [address] [place], [address] Platelets (Bld) [#/Vol] 237 10*3/uL Normal 150-450 [facility] Comment on above: Performed By: #### L 500.2500, L501.4020, L100.0100 #### [facility] [address] [place], [address] RBC (Bld) [#/Vol] 3.76 10*6/uL Low 4.2-5.4 [facility] Comment on above: Performed By: #### L 500.2500, L501.4020, L100.0100 #### [facility] [address] [place], [address] RDW SD 43.6 fl Normal 35.1-43.9 [facility] Comment on above: Performed By: #### L 500.2500, L501.4020, L100.0100 #### [facility] [address] [place], [address] WBC (Bld) [#/Vol] 4.8 10*3/uL Normal 4.4-11.0 [facility] Comment on above: Performed By: #### L 500.2500, L501.4020, L100.0100 #### [facility] [address] [place], [address] COVID 19 AG RAPID (JOSE Givens)on 08-08-2023 SARS-CoV-2 (COVID-19) RNA ILEANA+probe Ql (Unsp spec) *Negative results from patients with symptom onset beyond five days should be treated as presumptive and confirmed by a molecular assay if clinically necessary. Negative results should not be used as the sole basis for treatment or for patient management. SARS-CoV-2 Ag Resp Ql IA.rapid *Positive results do not differentiate between SARS-CoV and SARS-CoV-2. If differentiation of the specific SARS virus is desired an additional sample and an additional order is required. SARS-CoV-2 Ag Resp Ql IA.rapid * This test has not been FDA cleared or approved; the test has been authorized by FDA under an Emergency Use Authorization (EAU) for use by laboratories certified under CLIA that meet the requirements to perform moderate, high, or waived complexity tests. SARS-CoV-2 Ag Resp Ql IA.rapid Normal Reference Range: Negative SARS-CoV-2 (COVID 19) Negative RAPID METHOD [employer]Now COVID19 Ag Card Normal [facility] Comment on above: Performed By: #### M 100.2000, M100.2400 #### [facility] [address] [place], [address] COVID-19 virus antigen assay Ordered By: Tri Farias on 08-08-2023 SARS-CoV-2 (COVID-19) Ag IA.rapid Ql (Resp) [facility] CTA Chest W/WO Contraston CTA Chest W/WO Contrast [facility] Imaging Services [address] [place] [address] CTA Chest W/WO Contrast MR#: [id number] Acct: [id number] Name: VERO HOLT Rep #: [id number] : 1970 F 53 From: Carlos Diaz MD PCP: Dr. Handy Mike, DO Status: REG ER Study: CTA Chest W/WO Contrast Date of Exam: 08/08/23 Exam# [id number] Ordering Dr: Tri Farias [id number] EXAM: CT ANGIOGRAPHY CHEST WITHOUT AND WITH INTRAVENOUS CONTRAST CLINICAL INDICATION: shortness of breath TECHNIQUE: Helically acquired angiography images were obtained of the chest without and with intravenous contrast. This CT exam was performed using one or more of the following dose reduction techniques: automated exposure control, adjustment of the mA and/or kV according to patient size, and/or use of iterative reconstruction technique. MIP reconstructed images were created and reviewed. CONTRAST: IV 100mL [id number] COMPARISON: No relevant prior studies available. FINDINGS: PULMONARY ARTERIES: Unremarkable. Normal in caliber. No evidence of pulmonary embolism. AORTA: Unremarkable. Normal in caliber. No evidence of dissection. GREAT VESSELS OF AORTIC ARCH: Unremarkable. Normal in caliber. No evidence of dissection. LUNGS AND PLEURAL SPACES: There are diffuse patchy areas of consolidation and groundglass opacities throughout both lungs greatest in the lung bases which may represent developing bilateral pneumonia. There are no effusions identified. No mass. HEART: Unremarkable. Heart size is normal. No pericardial effusion. No significant coronary artery calcifications. MEDIASTINUM: Unremarkable. No mediastinal or hilar adenopathy. Esophagus is unremarkable. No hiatal hernia. THYROID: Unremarkable. No thyroid lesions. BONES/JOINTS: Unremarkable. No suspicious lytic or blastic abnormality. CT/CTA Chest W/WO Contrast IMPRESSION: 1. No evidence of pulmonary embolus. 2. Diffuse patchy bilateral airspace disease and groundglass opacities which may represent developing bilateral pneumonia. Electronically Signed: Carlos Diaz MD at 16:24 EST , CC: Dr. Handy Mike DO; ROSARIO Miranda Commercial [employer] Manager: Signed Normal [facility] Determination of erythrocyte mean corpuscular volume (MCV)Ordered By: Tri Farias on 08-08-2023 MCV (RBC) [Entitic vol] 93.6 fL 81-99 [facility] Echo Complete W/ Contraston 08-08-2023 Echo Complete W/ Contrast [facility] Cardiovascular Services [address] [place] [address] Echo Complete W/ Contrast 08/09/23 0844 MR#: [id number] Acct: [id number] Name: VERO HOLT Rep #: [id number] : 1970 53 From: Didi Delatorre MD Attending Dr: Dr. Kalina Caicedo DO Status: ADM I N Ordering Dr: John Paul Trujillo DO Date: 08/08/23 Location: U Sex: F C Admitted: 08/08/23 Reason For Study: Dyspnea/SOB Procedure This was a 2D Doppler, Color Flow transthoracic echocardiogram. Contrast injection was performed. The study was technically difficult. Exam performed portable in patient room. Left Ventricle Normal LV size. The estimated ejection fraction is 60 %. No evidence for diastolic dysfunction. No regional wall motion abnormalities noted. Right Ventricle Normal RV size. Normal systolic function. Atria Normal left atrium. Normal right atrium. No doppler evidence for ASD. Mitral Valve There is no mitral valve stenosis. No mitral valve insufficiency. Tricuspid Valve There is no tricuspid stenosis. Unable to estimate RV systolic pressure due to inadequate jet, pulmonary artery pressure probably normal. Aortic Valve Trisinus/trileaflet aortic valve. There is no aortic stenosis. No aortic valve insufficiency. Pulmonic Valve There is no pulmonic valvular stenosis. Trivial pulmonic valve insufficiency. Great Vessels Normal aortic root. Pericardium/Pleural No pericardial effusion. Medication Diluted definity 3.5ml given slow IV push to enhance endocardial definition. MMode/2D Measurements Calculations LVIDd: 4.7 cm IVSd: 1.0 cm Ao root diam: 3.2 cm LVIDs: 3.0 cm LVPWd: 0.92 cm RVDd: 3.1 cm FS: 35.3 % _ LAV(MOD-bp): 27.6 ml LA A4 area: 12.8 cm2 LA dimension(2D): 3.1 cm LAV(MOD-bp) Indexed: 12.7 ml/m2 LAV(MOD-sp2): 27.4 ml LAV(MOD-sp4): 27.6 ml _ RA A4 area: 11.3 cm2 Time Measurements MV dec time: 0.22 sec Doppler Measurements Calculations MV E max dia: 55.4 cm/sec Lat Peak E' Dia: 8.4 cm/sec Med Peak E' Dia: 9.1 cm/sec MV A max dia: 66.0 cm/sec E/E' lat: 6.6 E/E' med: 6.1 MV E/A: 0.84 _ MV dec slope: 256.8 cm/sec2 Ao V2 max: 117.3 cm/sec LV V1 max: 110.2 cm/sec Ao max P.5 mmHg LV V1 max P.9 mmHg Ao V2 mean: 89.7 cm/sec Ao mean P.4 mmHg Ao V2 VTI: 22.2 cm _ PA V2 max: 111.8 cm/sec ECHO/Echo Complete W/ Contrast Interpretation Summary The estimated ejection fraction is 60 %. No evidence for diastolic dysfunction. Ordering Physician: John Paul Trujillo Referring Physician: Handy Mike Performed By: Carolina Armas, LEILA, RVT 08/09/23 1321 Date Didi Delatorre MD CC: Dr. Handy Mike DO; Dr. Kalina Caicedo DO; Dr. John Paul Trujillo DO Date Dictated: 08/09/2344 Date Transcribed: 08/09/23 1321 Commercial [employer] Manager: Signed Normal [facility] Emergency Department Summary on 08-08-2023 Emergency Department Summary [facility] Medical Records Department [address] [place] [address] Emergency Department Summary 08/08/23 MR#: [id number] Acct: [id number] Name: VERO HOLT Rep #: [id number] : 1970 53 From: David Mo DO PCP: Dr. Handy Mike, DO Status:ADM IN Location: [address] History of Present Illness Chief Complaint: Shortness of Breath Narrative Narrative: Patient presenting today due to shortness of breath that has progressively worsened over the past few days. She feels short of breath both at rest and with exertion. 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 She reports that she has been very noncompliant with her medications including Lasix over the past 2 weeks due to currently being sick with influenza A and having nausea. She has had more swelling in her bilateral lower extremities now that she is not taking Lasix. She reports that she does have pain to her bilateral rib cage when she takes a deep breath or coughs. She saw her PCP this morning who encouraged her to come to the ED to rule out a PE. Her pulse ox while there was 89% on room air. She denies fevers, chills, chest pain, and abdominal pain. [facility] Medical History Abnormal Pap smear of cervix Anxiety Chest pain Factor V deficiency Migraine SOB (shortness of breath) Home Medications warfarin 4 mg tablet 4 mg PO MO Saturday10/01/17 [History Last Taken Unknown] warfarin 6 mg tablet 6 mg PO SUTUWETHFRSA 10/01/17 [History Last Taken Unknown] fluoxetine 20 mg capsule 50 mg PO DAILY 09/05/20 [History Last Taken Unknown] ondansetron 4 mg disintegrating tablet 4 mg PO Q8H PRN PRN Nausea #10 tabs 03/02/21 [Rx Last Taken Unknown] propranolol 20 mg tablet 40 mg PO DAILY 03/02/21 [History Last Taken Unknown] azithromycin 250 mg tablet See Rx Instructions PO .COMPLEX #6 tabs 05/04/23 [Rx Last Taken Unknown] benzonatate 100 mg capsule 100 mg PO TID PRN cough #21 caps 05/04/23 [Rx Last Taken Unknown] albuterol sulfate 90 mcg/actuation aerosol inhaler (Ventolin HFA) 2 puff inhalation Q4H PRN PRN Wheezing/SOB #1 device 08/01/23 [Rx Last Taken Unknown] codeine 10 mg-guaifenesin 100 mg/5 mL oral liquid 5 ml PO 4X/DAY PRN PRN cough 7 days #140 mL 08/01/23 [Rx Last Taken Unknown] ondansetron 4 mg disintegrating tablet 4 mg PO TID PRN nausea and vomiting #21 tabs 08/01/23 [Rx Last Taken Unknown] Allergy/AdvReac Type Severity Reaction Status Date / Time codeine AdvReac Vomiting Verified 08/08/23 14:36 hydrocodone bitartrate AdvReac Pain in Verified 08/08/23 14:36 [From Vicodin] joints Family History Father Diabetes Congestive heart failure Asthma Mother Congestive heart failure Surgical History delivery delivered History of cholecystectomy Social History household members: none Smoking Status: Never smoker alcohol intake: never substance use type: does not use caffeine: Yes what type of physical activity do you participate in: walking seatbelt use: always do you feel safe at home: Yes additional social history: - [employer] ROS ROS ED Constitutional Constitutional ED: Denies chills or fever(s) Cardiovascular Cardiovascular: Denies chest pain Respiratory/Chest Respiratory/Chest: Reports cough, dyspnea and dyspnea on exertion Gastrointestinal Gastrointestinal: Denies abdominal pain, nausea or vomiting Musculoskeletal Musculoskeletal: Denies arthralgias or myalgias Integumentary Denies rash Neurologic Neurologic: Denies weakness EXAM Physical Exam Const Vital Signs: 08/08/23 14:36 08/08/23 16:26 08/08/23 16:27 Temperature 98.5 F Temperature Source Temporal Pulse Rate 86 73 Respiratory Rate 20 H 22 H Respiratory Effort Blood Pressure 118/59 L 126/63 H Blood Pressure Mean 78 84 Pulse Ox 91 94 92 Oxygen Delivery Method Room Air Room Air Room Air 08/08/23 16:29 08/08/23 16:56 08/08/23 17:45 Temperature 98 F Temperature Source Pulse Rate 78 Respiratory Rate 20 H Respiratory Effort Non-Labored Short of Breath Blood Pressure 121/62 H Blood Pressure Mean 81 Pulse Ox 93 92 Oxygen Delivery Method Room Air Room Air Positive well nourished, well developed and no apparent distress General Appearance ED: well developed HEENT Reports normocephalic and head/scalp atraumatic Mouth ED: Yes moist mucous membranes normal Eyes PERRL and EOMs intact bilaterally Neck full ROM and supple Chest Wall inspection o (more content not included)... Normal [facility] Erythrocyte distribution wid th ratioOrdered By: Tri Farias on 08-08-2023 Erythrocyte distribution width (RBC) [Ratio] 12.9 % 11.6-14.6 [facility] Erythrocyte distribution wid th standard deviationOrdered By: Tri Farias on 08-08-2023 Erythrocyte distribution width (RBC) [Entitic vol] 43.6 fL 35.1-43.9 [facility] H AND P Exam - Hospitaliston 08-08-2023 H&P Exam - Hospitalist [facility] Medical Records Department [address] [place] [address] H P Exam - Hospitalist 08/08/232002 MR#: [id number] Acct: [id number] Name: VERO HOLT Rep #: [id number] : 1970 53 From: John Paul Trujillo DO PCP: Dr. Handy Mike, DO Status:ADM IN Location: [facility] [id number] HPI - General General Date of Admission: 08/08/23 Date of Service: 08/08/23 Chief Complaint: Shortness of breath, leg edema, low pulse ox HPI Narrative VERO HOLT, is a 53 F who presents to the emergency room at [facility] after being sent in from her PCPs office due to a low pulse ox of 89% on room air. Patient had been complaining of some shortness of breath, she had influenza proximately 10 to 14 days ago. Patient denies any pulmonary issues. Patient takes Lasix usually for lower extremity edema and she states she has been sick and not able to take some oral medications such as Lasix and Coumadin. 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 Patient denied any productive cough, she denied any chills or fever. Patient complained of a dry cough. Workup in the emergency room included a CBC which showed a normal white blood cell count, hemoglobin was 11.7, patient's chemistry profile was remarkable for creatinine of 1.04, and a CTA of the chest was performed which showed no evidence of pulmonary embolus, there were diffuse patchy bilateral airspace disease and groundglass opacities concerning for pneumonia. Patient's pulse ox on room air was 94%, on ambulation her pulse ox dropped to 84%. At the time of this dictation, patient's COVID antigen, RSV antigen, and respiratory panel are pending. Patient will be admitted to [facility], she will be placed on oral Levaquin, she will be seen in consultation by pulmonary medicine, she will be given 1 dose of IV Lasix due to lower extremity edema. Patient will have an echocardiogram performed due to concerns of possible right-sided heart failure. [facility] Medical History Abnormal Pap smear of cervix Anxiety Chest pain Factor V deficiency Migraine SOB (shortness of breath) Home Medications warfarin 4 mg tablet 4 mg PO Saturday10/01/17 [History Last Taken Unknown] warfarin 6 mg tablet 6 mg PO SUTUWETHFRSA 10/01/17 [History Last Taken Unknown] fluoxetine 20 mg capsule 50 mg PO DAILY 09/05/20 [History Last Taken Unknown] ondansetron 4 mg disintegrating tablet 4 mg PO Q8H PRN PRN Nausea #10 tabs 03/02/21 [Rx Last Taken Unknown] propranolol 20 mg tablet 40 mg PO DAILY 03/02/21 [History Last Taken Unknown] azithromycin 250 mg tablet See Rx Instructions PO .COMPLEX #6 tabs 05/04/23 [Rx Last Taken Unknown] benzonatate 100 mg capsule 100 mg PO TID PRN cough #21 caps 05/04/23 [Rx Last Taken Unknown] albuterol sulfate 90 mcg/actuation aerosol inhaler (Ventolin HFA) 2 puff inhalation Q4H PRN PRN Wheezing/SOB #1 device 08/01/23 [Rx Last Taken Unknown] codeine 10 mg-guaifenesin 100 mg/5 mL oral liquid 5 ml PO 4X/DAY PRN PRN cough 7 days #140 mL 08/01/23 [Rx Last Taken Unknown] ondansetron 4 mg disintegrating tablet 4 mg PO TID PRN nausea and vomiting #21 tabs 08/01/23 [Rx Last Taken Unknown] Allergy/AdvReac Type Severity Reaction Status Date / Time codeine AdvReac Vomiting Verified 08/08/23 14:36 hydrocodone bitartrate AdvReac Pain in Verified 08/08/23 14:36 [From Vicodin] joints Family History Father Diabetes Congestive heart failure Asthma Mother Congestive heart failure Surgical History delivery delivered History of cholecystectomy Social History household members: none Smoking Status: Never smoker alcohol intake: never substance use type: does not use caffeine: Yes what type of physical activity do you participate in: walking seatbelt use: always do you feel safe at home: Yes additional social history: - [employer] ROS Constitutional Constitutional: Denies anorexia, change in weight, chills, fatigue, fever(s), malaise, night sweats or weakness Eyes Eyes: Denies blurry vision, change in vision, discharge from eye(s) or eye pain Cardiovascular Cardiovascular: Reports dyspnea on exertion; Denies chest pain, claudication, edema or palpitations Respiratory/Chest Respiratory/Chest: Reports cough, dyspnea and shortness of breath with exertion; Denies hemoptysis or shortness of breath at rest Gastrointestinal Gastrointestinal: Denies abdominal pain, constipation, diarrhea, hematemesis, hematochezia, melena, nausea or vomiting Genitourinary Genitourinary: Denies dysu (more content not included)... Normal [facility] Hematocrit Auto (Bld) [Volum e fraction]Ordered By: Tri Farias on 08-08-2023 Hematocrit (Bld) [Volume fraction] 35.2 % 37-47 [facility] Immature granulocytes/100 WB C Auto (Bld)Ordered By: Tri Farias on 08-08-2023 Immature granulocytes/100 WBC (Bld) 1.400 % 0.0-0.9 [facility] Comment on above: IG% - Immature Granu locytes (promyelocytes, myelocytes and metamyelocytes) > 1% indicates that a LEFT SHIFT is Present. L501.4020on 08-08-2023 TROPONIN-I HS 10 pg/mL Normal 3.0-54.0 [facility] Comment on above: Order Comment: 'TROP ' Serial specimen #1, #2 or #3: 1 Result Comment: Plea se Note: New Test Units and Gender Specific Reference Ranges. For more information see Policy Stat Procedure Gantt High Sensitivity Troponin (TNIH) and attachments. Performed By: #### M 100.2000, M100.2400 #### [facility] [address] [place], [place], [id number] Laboratory - Chemistry and C hemistry - challengeOrdered By: Tri Farias on 08-08-2023 CO2 [Moles/Vol] 32.0 mmol/L 21.0-32.0 [facility] Natriuretic peptide B (Bld) [Mass/Vol] 59.7 pg/mL 0-100 [facility] Urea nitrogen/Creatinine [Mass ratio] 14.4 mg/mg 10-20 [facility] Laboratory - CoagulationOrde red By: Tri Farias on 08-08-2023 INR Coag (Bld) [Relative time] 1.6 {INR} [facility] PT Coag (PPP) [Time] 18.7 s 11.7-14.9 [facility] Laboratory - Hematology and Cell countsOrdered By: Tri Farias on 08-08-2023 MCH (RBC) [Entitic mass] 31.1 pg 27.0-32.0 [facility] MCHC (RBC) [Mass/Vol] 33.2 g/dL 32-36 [facility] Nucleated RBC/100 WBC (Bld) [Ratio] 0 % 0-5 [facility] Platelet mean volume (Bld) [Entitic vol] 8.4 fL 6.2-12.0 [facility] Platelets (Bld) [#/Vol] 237 10*3/uL 150-450 [facility] No Panel InformationOrdered By: Tri Farias on 08-08-2023 Estimated Creatinine Clearance Calc 76.78 ml/min [facility] Estimated GFR (MDRD) Amer 71 mL/min >60 [facility] Comment on above: GFR Calc Estimated GFR (MDRD) Non-Af Amer 58 mL/min >60 [facility] Comment on above: Non- GFR Calc Troponin I High Sensitivity 10 pg/mL 3.0-54.0 [facility] Comment on above: Please Note: [place] t Units and Gender Specific Reference Ranges. For more information see Policy Stat Procedure Gantt High Sensitivity Troponin (TNIH) and attachments. Prothrombin Time w/INRon INR Coag (PPP) [Relative time] 1.6 {INR} Normal [facility] Comment on above: Performed By: #### L 300.3900 #### [facility] [address] [place], [address] PT Coag (PPP) [Time] 18.7 s High 11.7-14.9 [facility] Comment on above: Performed By: #### L 300.3900 #### [facility] [address] [place], [address] RBC Auto (Bld) [#/Vol]Ordere d By: Tri Farias on 08-08-2023 RBC (Bld) [#/Vol] 3.76 10*6/uL 4.2-5.4 [facility] Serum or plasma calcium jacqueline urement (mass/volume)Ordered By: Tri Farias on 08-08-2023 Calcium [Mass/Vol] 8.5 mg/dL 8.5-10.1 [facility] Serum or plasma creatinine m easurement (mass/volume)Ordered By: Tri Farias on 08-08-2023 Creatinine [Mass/Vol] 1.04 mg/dL 0.55-1.02 [facility] Comment on above: The validity of the calculated GFR & GFRAA in patients over 70 years has not been determined. Clinical correlation is essential. Serum or plasma urea nitroge n measurement (mass/volume)Ordered By: Tri Farias on 08-08-2023 Urea nitrogen [Mass/Vol] 15 mg/dL 7-18 [facility] Thin prep Papanicolaou smear with manual screeningOrdered By: Tri Farias on 08-08-2023 Thin prep Papanicolaou smear with manual screening 5 5-15 [facility] UA DIP, URINE (POC)on 2023 BILIRUBIN UA (POCT) Small Abnormal Negative [facility] CLARITY UA (POCT) Cloudy [facility] COLOR UA (POCT) Other [facility] GLUCOSE UA (POCT) Negative Negative mg/dL [facility] Hemoglobin Ql (U) Negative Negative [facility] KETONE UA (POCT) Negative Negative mg/dL [facility] LEUKOCYTES UA (POCT) Trace Abnormal Negative [facility] NITRITE UA (POCT) Positive Abnormal Negative [facility] PH UA (POCT) 5.5 4.5 - 8.0 [facility] Protein Ql (U) 30 mg/dL Abnormal Negative mg/dL [facility] SPECIFIC GRAVITY UA (POCT) 1.025 1.005 - 1.030 [facility] UROBILINOGEN UA (POCT) 1.0 E.U./dL Soledad l E.U./dL [facility] Chest PA and Lateralon 08-01 Chest PA and Lateral [facility] Imaging Services [address] [place] [address] Chest PA and Lateral MR#: [id number] Acct: [id number] Name: VERO HOLT Rep #: [id number] : 1970 F 53 From: Carolann Alvarez MD PCP: Dr. Handy Mike DO Status: REG ER Study: Chest PA and Lateral Date of Exam: 08/01/23 Exam# [id number] Ordering Dr: Red Martin DO [id number] STUDY: X-RAY CHEST REASON FOR EXAM: Female, 53 years old patient with shortness of breath. TECHNIQUE: PA and lateral views of the chest. COMPARISON: March 02, 2021. FINDINGS: There is interstitial thickening present in both lungs with some peribronchial cuffing. There may be some patchy left basilar airspace disease. There is also groundglass attenuation at the right lung base. The lungs are under expanded. There is no demonstrated pleural abnormality. There is mild cardiac enlargement. Normal mediastinum and suzanna. Normal visualized pulmonary arteries. There is atherosclerotic calcification of the aortic arch with tortuosity. The bones appear osteopenic. There appear to be several compression fractures of the mid thoracic spine. There is increased thoracic kyphosis. Normal visualized ribs, clavicles, and shoulders. There is no demonstrated abnormality of the visualized soft tissue structures of the upper abdomen. RAD/Chest PA and Lateral IMPRESSION: 1. Findings suggest acute exacerbation of reactive airway disease and/or viral infection. 2. Bilateral basilar airspace disease may represent multifocal pneumonia. Electronically Signed: Carolann Alvarez MD at 1:44 EST , CC: Dr. Handy Mike DO; Red Martin DO Commercial Center Manager: Signed Normal [facility] Emergency Department Summary on 08-01-2023 Emergency Department Summary [facility] Medical Records Department [address] [place] [address] Emergency Department Summary 08/01/23 MR#: [id number] Acct: [id number] Name: VERO HOLT Rep #: [id number] : 1970 53 From: Red Martin DO PCP: Dr. Handy Mike DO Status:DEP ER Location: ED HPI History of Present Illness Chief Complaint: Cough Informant: patient Narrative Narrative: Patient is a 53-year-old female with past medical history of factor V Leiden deficiency currently on Coumadin. She states that her boyfriend has been sick recently and on Saturday she began with generalized muscle aches with fatigue headache congestion cough and nausea vomiting diarrhea. She states that despite giving it a few days to improve she feels like she is worsened and secondary to this comes in for evaluation [facility] Medical History Abnormal Pap smear of cervix Anxiety Chest pain Factor V deficiency Migraine SOB (shortness of breath) Home Medications warfarin 4 mg tablet 4 mg PO Saturday10/01/17 [History Last Taken Unknown] warfarin 6 mg tablet 6 mg PO SUTUWETHFRSA 10/01/17 [History Last Taken Unknown] fluoxetine 20 mg capsule 50 mg PO DAILY 09/05/20 [History Last Taken Unknown] ondansetron 4 mg disintegrating tablet 4 mg PO Q8H PRN PRN Nausea #10 tabs 03/02/21 [Rx Last Taken Unknown] propranolol 20 mg tablet 40 mg PO DAILY 03/02/21 [History Last Taken Unknown] azithromycin 250 mg tablet See Rx Instructions PO .COMPLEX #6 tabs 05/04/23 [Rx Last Taken Unknown] benzonatate 100 mg capsule 100 mg PO TID PRN cough #21 caps 05/04/23 [Rx Last Taken Unknown] albuterol sulfate 90 mcg/actuation aerosol inhaler (Ventolin HFA) 2 puff inhalation Q4H PRN PRN Wheezing/SOB #1 device 08/01/23 [Rx Last Taken Unknown] codeine 10 mg-guaifenesin 100 mg/5 mL oral liquid 5 ml PO 4X/DAY PRN PRN cough 7 days #140 mL 08/01/23 [Rx Last Taken Unknown] ondansetron 4 mg disintegrating tablet 4 mg PO TID PRN nausea and vomiting #21 tabs 08/01/23 [Rx Last Taken Unknown] Allergy/AdvReac Type Severity Reaction Status Date / Time codeine AdvReac Vomiting Verified 07/31/23 23:05 hydrocodone bitartrate AdvReac Pain in Verified 07/31/23 23:05 [From Vicodin] joints Family History Father Diabetes Congestive heart failure Asthma Mother Congestive heart failure Surgical History delivery delivered History of cholecystectomy Social History household members: none Smoking Status: Never smoker alcohol intake: never substance use type: does not use caffeine: Yes what type of physical activity do you participate in: walking seatbelt use: always do you feel safe at home: Yes additional social history: - [employer] ROS ROS ED Constitutional Constitutional ED: Reports chills and fever(s) Eyes Eyes: Denies change in vision ENT ENT ED: Reports rhinorrhea and sore throat Cardiovascular Cardiovascular: Denies chest pain Respiratory/Chest Respiratory/Chest: Reports cough and dyspnea Gastrointestinal Gastrointestinal: Reports abdominal pain, diarrhea, nausea and vomiting Genitourinary Genitourinary ED: Denies dysuria Musculoskeletal Musculoskeletal: Reports myalgias Integumentary Denies rash Neurologic Neurologic: Reports headache(s) Hematologic/Lymphati c Hematologic/Lymphati c: Reports easy bleeding and easy bruising EXAM Physical Exam Const Vital Signs: 07/31/23 23:05 07/31/23 23:49 08/01/23 00:19 Temperature 98.1 F Temperature Source Temporal Pulse Rate 87 89 Respiratory Rate 24 H 18 Respiratory Effort Normal Non-Labored Blood Pressure 104/70 Blood Pressure Mean 81 Pulse Ox 97 Oxygen Delivery Method Room Air Room Air 08/01/23 01:35 Temperature 98.5 F Temperature Source Pulse Rate 78 Respiratory Rate 18 Respiratory Effort Blood Pressure 120/63 Blood Pressure Mean 82 Pulse Ox 93 Oxygen Delivery Method Positive well nourished, well developed and obese General Appearance ED: well developed; Negative for pallor Nutritional Appearance: obese HEENT HEENT Narrative: Bilateral TMs are retracted but show no secondary changes to suggest infection Nasal mucosa is hyperemic and boggy Posterior pharynx displays cobblestoning consistent with sinus drainage without airway edema or compromise Mucous membranes are dry and tacky Eyes PERRL and EOMs intact bilaterally General Eye ED: Negative for scleral icterus Neck supple Neck Narrative: No nuchal rigidity or meningeal signs noted Chest Wall palpation of chest normal Resp Resp Narr (more content not included)... Normal [facility] - Microbiology an d Antimicrobial susceptibilityOrdered By: Red Martin on 08-01-2023 SARS-CoV-2 (COVID-19) RNA ILEANA+probe Ql (Unsp spec) Influenzae A [facility] M100.678on 08-01-2023 M100.678 Normal Reference Range = Negative COV + FLU + RSV PCR GeneXpert Instrument, PCR method COV + FLU + RSV PCR RESULTS CALLED TO ARSENIO 08/01/23 0111 Za Rajan. REPORT READ BACK BY ARSENIO. COV + FLU + RSV PCR Copy of report sent to Infection Control Printer [id number] 08/01/23 0112 LCOLLINS2. SARS-CoV-2 (COVID 19) Negative INFLUENZA A Positive A INFLUENZA A Positive A RSV PCR Negative FLUA Normal [facility] Comment on above: Performed By: #### M 100.678 #### [facility] [address] [place], [place], [id number] PT panel Coag (PPP)on 2023 INR Coag (PPP) [Relative time] 2.3 {INR} High 0.9 - 1.3 [facility] PT Coag (PPP) [Time] 22.5 s High 9.7 - 1 3.0 sec [facility] No Panel Informationon 05-13 [facility] Urgent Care Visit Reporton 1 07-04-2022 Urgent Care Visit Report [facility] [address], [address] [place], [place] [address] OFFICE VISIT Date of Service: 05/04/23 MR#: [id number] Acct: [id number] Name: VERO HOLT Rep #: [id number] 08 : 1970 Provider: ROSARIO Amaya Age/Sex: 53/F Location: [facility] Status: Signed Intake Vital Signs 09/13/22 13:16 05/04/23 12:16 Height 5 ft 6 in 5 ft 3 in Weight: 270 lb BMI 47.8 BP 132/80 H Blood Pressure Location Lt brachial Position Sitting Respiration 14 Pulse 76 Pulse Source Monitor Temp 98.5 F Temp Source Temporal Pulse Oximetry (%) 95 Oxygen Delivery Method room air Intake Visit Reasons: COUGH/CONGESTION Chief Complaint: Work injury Allergies codeine Adverse Reaction (Verified 05/04/23 12:17) Vomiting hydrocodone bitartrate [From Vicodin] Adverse Reaction (Verified 05/04/23 12:17) Pain in joints PFSH Medical History Abnormal Pap smear of cervix Anxiety Chest pain Factor V deficiency Migraine SOB (shortness of breath) Surgical History delivery delivered History of cholecystectomy Family History Father Diabetes Congestive heart failure Asthma Mother Congestive heart failure Social History household members: none Smoking Status: Never smoker alcohol intake: never substance use type: does not use caffeine: Yes what type of physical activity do you participate in: walking seatbelt use: always do you feel safe at home: Yes additional social history: - [facility] HPI HPI Chief Complaint: Work injury Details: VERO HOLT, is a 53 F who presents to the office today for cold symptoms. Patient states she has been experiencing persistent cough, nasal congestion, and phlegm production over the past 2 and half weeks with recent worsening of her symptoms despite conservative measures. Patient states she has utilized fyuh-lug-dtrjocm cold preparations with no improvement. Patient denies fever, chills, and shortness of breath. Patient denies recent contact with an individual with similar symptoms. Patient states nothing seems to alleviate or aggravate her symptoms. ROS Const Constitutional: No chills, fever(s) or headache(s) ENT ENT: Positive for nasal congestion, nasal discharge and post nasal drip; No ear or mastoid pain, ear discharge, sinus pressure, sinus pain or headache(s) Resp Respiratory: Positive for cough and excessive phlegm production; No chest congestion, shortness of breath or wheezing Cardio Cardiology: No chest pain at rest, chest pain with exertion, dyspnea on exertion, irregular heart rhythm or palpitations Neuro Neurology: No headache(s) Aller/Imm Allergy/Immunologic: No seasonal allergy symptoms or wheezing Exam Const General: cooperative and no acute distress HENMT Ears: external ears normal and TM's normal bilaterally Nose: nares normal, nasal mucous membranes and turbinates normal and no nasal discharge Face and sinus: sinuses nontender Mouth: oral mucosae normal Throat: posterior oropharynx normal Neck Lymphatic: no lymphadenopathy noted Resp Auscultation: Left: Rhonchi and Right: Clear to Auscultation Cardio Rate: regular rate Rhythm: regular rhythm Heart Sounds: S1 normal and S2 normal Coding Level of Care Code Established Pt Off vis,est,level 3 Patient Type Established History Problem Focused Exam Problem Focused Medical Decision Making Low Complexity Diagnoses Bronchitis J40 Assessment and Plan Assessment and Plan (1) Bronchitis: Status: Acute Plan: Will initiate antibiotic management at this time along with as needed antitussive for management of symptoms. Patient encouraged to schedule with PCP after several days of taking azithromycin to recheck INR due to continued use of warfarin for anticoagulation. Patient encouraged to follow-up at the [facility] clinic or with PCP at completion of antibiotic if symptoms persist or worsen for further evaluation. Patient voiced understanding and agreement with plan. Medications: New azithromycin For 250 mg dose pack: take 500 mg today (day 1), then 250 mg for 4 days (days 2-5) PO 6 tabs 0RF J40 - Bronchitis, not specified as acute or chronic benzonatate 100 mg PO TID PRN 21 caps 0RF cough 05/04/23 1337 Date Ammon Da Silva Signature: Date (if applicable) CC: Normal [facility] XR Knee - right 4 Viewson IMPRESSION: Degenerative changes in the right knee with small joint effusion. Commercial Center Manager: KATERINEB Transcribe Date/Time: Apr 17 2023 8:40A Dictated by : KALLIE SKINNER MD This examination was interpreted and the report reviewed and electronically signed by: KALLIE SKINNER MD on Apr 17 2023 8:47AM EST DIVISION OF RADIOLOGY * * *Final Report* * * DATE OF EXAM: Apr 15 2023 8:21AM WOX 5203 - XR KNEE 4V AP/PA BOTH+LAT/BRITTANY RT / PROCEDURE REASON: multiple diagnoses * * * * Physician Interpretation * * * * EXAM TITLE: XR KNEE 4V AP/PA BOTH+LAT/BRITTANY RT EXAM DATE/TIME: 04/15/2023 8:21 AM COMPARISON: None. CLINICAL INDICATION/HISTORY: Chronic pain. TECHNIQUE: AP/PA, lateral and sunrise views of the right knee are presented. FINDINGS: No acute fractures or subluxations are noted. There appears be medial compartmental joint space narrowing. Osteophyte formation noted. There is small joint effusion. The mineralization of the bones is normal. There is no significant soft tissue swelling. DIVISION OF RADIOLOGY Provider, [facility] [place] - 04/17/2023 * * *Final Report* * * DATE OF EXAM: Apr 15 2023 8:21AM WOX 5203 - XR KNEE 4V AP/PA BOTH+LAT/BRITTANY RT / PROCEDURE REASON: multiple diagnoses * * * * Physician Interpretation * * * * EXAM TITLE: XR KNEE 4V AP/PA BOTH+LAT/BRITTANY RT EXAM DATE/TIME: 04/15/2023 8:21 AM COMPARISON: None. CLINICAL INDICATION/HISTORY: Chronic pain. TECHNIQUE: AP/PA, lateral and sunrise views of the right knee are presented. FINDINGS: No acute fractures or subluxations are noted. There appears be medial compartmental joint space narrowing. Osteophyte formation noted. There is small joint effusion. The mineralization of the bones is normal. There is no significant soft tissue swelling. IMPRESSION IMPRESSION: Degenerative changes in the right knee with small joint effusion. Commercial Center Manager: MELONIE Transcribe Date/Time: Apr 17 2023 8:40A Dictated by : KALLIE SKINNER MD This examination was interpreted and the report reviewed and electronically signed by: KALLIE SKINNER MD on Apr 17 2023 8:47AM EST [facility] XR Knee - right 4 ViewsOrder ed By: [facility] Provider on 04-17-2023 [facility] XR Knee - right 4 Viewson Radiology Study observation (narrative) Cate keller [facility] CBC W Auto Differential pane l (Bld)on 10-16-2022 Basophils (Bld) [#/Vol] 0.03 10*3/uL <0.11 k/uL [facility] Basophils/100 WBC (Bld) 0.5 % [facility] Differential cell count method Nom (Bld) Auto [facility] Eosinophils (Bld) [#/Vol] 0.16 10*3/uL <0.46 k/ uL [facility] Eosinophils/100 WBC (Bld) 2.7 % [facility] Erythrocyte distribution width (RBC) [Ratio] 13.2 % 11.5 - 15.0 % [facility] Hematocrit (Bld) [Volume fraction] 43.0 % 36.0 - 46.0 % [facility] Hemoglobin (Bld) [Mass/Vol] 14.5 g/dL 11.5 - 15.5 g/dL [facility] Immature granulocytes (Bld) [#/Vol] 0.03 10*3/uL <0.10 k/uL [facility] Immature granulocytes/100 WBC (Bld) 0.5 % [facility] Lymphocytes (Bld) [#/Vol] 1.87 10*3/uL 1. 00 - 4.00 k/uL [facility] Lymphocytes/100 WBC (Bld) 31.7 % [facility] MCH (RBC) [Entitic mass] 32.4 pg 26. 0 - 34.0 pg [facility] MCHC (RBC) [Mass/Vol] 33.7 g/dL 30.5 - 36.0 g/dL [facility] MCV (RBC) [Entitic vol] 96.2 fL 80.0 - 100.0 fL [facility] Monocytes (Bld) [#/Vol] 0.49 10*3/uL <0.87 k/uL [facility] Monocytes/100 WBC (Bld) 8.3 % C [facility] Neutrophils (Bld) [#/Vol] 3.31 10*3/uL 1. 45 - 7.50 k/uL [facility] Neutrophils/100 WBC (Bld) 56.3 % [facility] Nucleated RBC (Bld) [#/Vol] <0.01 k/uL [facility] Nucleated RBC/100 WBC (Bld) [Ratio] 0.0 /100 WBC [facility] Platelet mean volume (Bld) [Entitic vol] 8.7 fL Low 9.0 - 12.7 fL [facility] Platelets (Bld) [#/Vol] 175 10*3/uL 150 - 400 k/uL [facility] RBC (Bld) [#/Vol] 4.47 10*6/uL 3.90 - 5.2 0 m/uL [facility] WBC (Bld) [#/Vol] 5.89 10*3/uL 3.70 - 11. 00 k/uL [facility] PT panel Coag (PPP)on 2022 INR Coag (PPP) [Relative time] 2.5 {INR} High 0.9 - 1.3 [facility] PT Coag (PPP) [Time] 25.1 s High 9.7 - 1 3.0 sec [facility] ALBUMIN/CREAT RATIO RND URon 07-04-2022 Albumin DL <= 20 mg/L (U) [Mass/Vol] [facility] Albumin/Creatinine (U) [Mass ratio] <30 mg/g [facility] Creatinine (U) [Mass/Vol] 281.1 mg/dL 20 .0 - 300.0 mg/dL [facility] Basic metabolic 2000 panelon 07-04-2022 Anion gap [Moles/Vol] 10 mmol/L 9 - 18 mmol/L [facility] Calcium [Mass/Vol] 9.0 mg/dL 8.5 - 10. 2 mg/dL [facility] Chloride [Moles/Vol] 103 mmol/L 97 - 10 5 mmol/L [facility] CO2 [Moles/Vol] 27 mmol/L 22 - 30 mmol/L [facility] Creatinine [Mass/Vol] 1.26 mg/dL High 0.58 - 0.96 mg/dL [facility] Estimated Glomerular Filtration Rate 51 mL/min/1.73m Low >=60 mL/min/1.73m [facility] Glucose [Mass/Vol] 90 mg/dL 74 - 99 mg/dL [facility] Potassium [Moles/Vol] 4.1 mmol/L 3.7 - 5.1 mmol/L [facility] Sodium [Moles/Vol] 140 mmol/L 136 - 144 mmol/L [facility] Urea nitrogen [Mass/Vol] 12 mg/dL 7 - 21 mg/d L [facility] No Panel Informationon 07-04 [facility] PT panel Coag (PPP)on 2022 INR Coag (PPP) [Relative time] 2.8 {INR} High 0.9 - 1.3 [facility] PT Coag (PPP) [Time] 27.6 s High 9.7 - 1 3.0 sec [facility] UA DIP, URINE (POC)on 2021 BILIRUBIN UA (POCT) Negative Negative [facility] CLARITY UA (POCT) Clear [facility] COLOR UA (POCT) Yellow [facility] GLUCOSE UA (POCT) Negative Negative mg/dL [facility] HEMOGLOBIN/BLOOD UA (POCT) Large Abnormal Negative [facility] KETONE UA (POCT) Negative Negative mg/dL [facility] LEUKOCYTES UA (POCT) Small Abnormal Negative [facility] NITRITE UA (POCT) Positive Abnormal Negative [facility] PH UA (POCT) 5.5 4.5 - 8.0 [facility] Protein Ql (U) 100 mg/dL Abnormal Negative mg/dL [facility] SPECIFIC GRAVITY UA (POCT) 1.025 1.005 - 1.030 [facility] UROBILINOGEN UA (POCT) 0.2 E.U./dL Soledad l E.U./dL [facility] DXA-AXIAL SKELETONon [facility] TJ SCREENINGon 02-27-2022 [facility] PT panel Coag (PPP)on 2021 INR Coag (PPP) [Relative time] 2.0 {INR} High 0.9 - 1.3 [facility] PT Coag (PPP) [Time] 20.3 s High 9.7 - 1 3.0 sec [facility] Vital Signs Date Time Vital Sign Value Performing Clinician Facility 12-28-2024 15:41-0400 Body height 164 cm Ursula Mc APRN.CNP Work Phone: [facility] 12-28-2024 15:41-0400 Body mass index (BMI) [Ratio] 48.81 kg/m2 Ursula Mc APRN.SODA COLUMN OPERATOR Work Phone: [facility] 12-28-2024 15:41-0400 Body weight 131.27 kg Ursula Mc APRN.CNP Work Phone: [facility] 12-28-2024 15:41-0400 Diastolic blood pressure 76 mm[Hg] Ursula Mc APRN.SODA COLUMN OPERATOR Work Phone: [facility] 12-28-2024 15:41-0400 Heart rate 67 /min Ursula Jesusita DIAMOND PICKER.SODA COLUMN OPERATOR Work Phone: [facility] 12-28-2024 15:41-0400 Respiratory rate 14 /min Ursula Jesusita DIAMOND PICKER.SODA COLUMN OPERATOR Work Phone: [facility] 12-28-2024 15:41-0400 SaO2% (BldA) [Mass fraction] 98 % Ursula Jesusita DIAMOND PICKER.SODA COLUMN OPERATOR Work Phone: [facility] 12-28-2024 15:41-0400 Systolic blood pressure 124 mm[Hg] Ursula Jesusita DIAMOND PICKER.SODA COLUMN OPERATOR Work Phone: [facility] 12-17-2024 07:15-0400 Body mass index (BMI) [Ratio] 50.12 kg/m2 Ursula Jesusita DIAMOND PICKER.SODA COLUMN OPERATOR Work Phone: [facility] 12-17-2024 07:15-0400 Body temperature 97.59 [degF] Ursula Jesusita DIAMOND PICKER.SODA COLUMN OPERATOR Work Phone: [facility] 12-17-2024 07:15-0400 Body weight 132.45 kg Ursula Jesusita DIAMOND PICKER.SODA COLUMN OPERATOR Work Phone: [facility] 12-17-2024 07:15-0400 Diastolic blood pressure 62 mm[Hg] Ursula Jesusita DIAMOND PICKER.SODA COLUMN OPERATOR Work Phone: [facility] 12-17-2024 07:15-0400 Heart rate 66 /min Ursula Jesusita DIAMOND PICKER.SODA COLUMN OPERATOR Work Phone: [facility] 12-17-2024 07:15-0400 Respiratory rate 14 /min Ursula Jesusita DIAMOND PICKER.SODA COLUMN OPERATOR Work Phone: [facility] 12-17-2024 07:15-0400 SaO2% (BldA) [Mass fraction] 99 % Ursula Jesusita DIAMOND PICKER.SODA COLUMN OPERATOR Work Phone: [facility] 12-17-2024 07:15-0400 Systolic blood pressure 132 mm[Hg] Ursula Jesusita DIAMOND PICKER.SODA COLUMN OPERATOR Work Phone: [facility] 09-25-2023 18:33-0400 Body weight 122.83 kg Cynthia Jordan DIAMOND PICKER.SODA COLUMN OPERATOR Work Phone: [facility] 09-25-2023 18:33-0400 Diastolic blood pressure 70 mm[Hg] Cynthia Jordan DIAMOND PICKER.SODA COLUMN OPERATOR Work Phone: [facility] 09-25-2023 18:33-0400 Heart rate 66 /min Cynthia Jordan DIAMOND PICKER.SODA COLUMN OPERATOR Work Phone: [facility] 09-25-2023 18:33-0400 Respiratory rate 16 /min Cynthia Jordan DIAMOND PICKER.SODA COLUMN OPERATOR Work Phone: [facility] 09-25-2023 18:33-0400 SaO2% (BldA) [Mass fraction] 99 % Cynthia Jordan DIAMOND PICKER.SODA COLUMN OPERATOR Work Phone: [facility] 09-25-2023 18:33-0400 Systolic blood pressure 114 mm[Hg] Cynthia Jordan DIAMOND PICKER.SODA COLUMN OPERATOR Work Phone: [facility] 08-14-2023 12:18-0500 Body temperature 98.4 [degF] Cynthia Jordan DIAMOND PICKER.SODA COLUMN OPERATOR Work Phone: [facility] 08-14-2023 12:18-0500 Body weight 122.56 kg Cynthia Jordan DIAMOND PICKER.SODA COLUMN OPERATOR Work Phone: [facility] 08-14-2023 12:18-0500 Diastolic blood pressure 62 mm[Hg] Cynthia Jordan DIAMOND PICKER.SODA COLUMN OPERATOR Work Phone: [facility] 08-14-2023 12:18-0500 Heart rate 79 /min Cynthia Jordan DIAMOND PICKER.SODA COLUMN OPERATOR Work Phone: [facility] 08-14-2023 12:18-0500 Respiratory rate 20 /min Cynthia Jordan DIAMOND PICKER.SODA COLUMN OPERATOR Work Phone: [facility] 08-14-2023 12:18-0500 SaO2% (BldA) [Mass fraction] 97 % Cynthia Jordan DIAMOND PICKER.SODA COLUMN OPERATOR Work Phone: [facility] 08-14-2023 12:18-0500 Systolic blood pressure 120 mm[Hg] Cynthia Julian AMEZQUITA Work Phone: 3(681)945-388250 [place] [address] 08-10-2023 13:27-0500 Body temperature 97.6 [degF] Dr. Handy Mike Work Phone: 0(631)324-542712 [place] [address] 08-10-2023 13:27-0500 Diastolic blood pressure 64 mm[Hg] Dr. Handy Mike Work Phone: 1(201)761-801612 [place] [address] 08-10-2023 13:27-0500 Heart rate 75 /min Dr. Handy Mike Work Phone: 8(459)063-437612 [place] [address] 08-10-2023 13:27-0500 Respiratory rate 15 /min Dr. Handy Mike Work Phone: 6(188)146-592312 [place] [address] 08-10-2023 13:27-0500 SaO2% (BldA) [Mass fraction] 96 % Dr. Handy Mike Work Phone: 3(569)987-252864 [place] [address] 08-10-2023 13:27-0500 Systolic blood pressure 115 mm[Hg] Dr. Handy Mike Work Phone: 0(031)163-514412 [place] [address] 08-09-2023 10:20-0500 Body height 159.[address] Handy Mike Work Phone: 8(547)032-895112 [place] [address] 08-09-2023 10:20-0500 Body weight 120.[address] Handy Mike Work Phone: 2(427)485-465012 [place] [address] 08-09-2023 06:52-0500 Inhaled oxygen flow rate 2 L/min Dr. Handy Mike Work Phone: 0(729)016-615512 [place] [address] 08-08-2023 21:02-0500 Body mass index (BMI) [Ratio] 47 kg/m2 Dr. Handy Mike Work Phone: 3(591)522-675512 [place] [address] 08-08-2023 19:44-0500 Diastolic blood pressure 51 mm[Hg] Dr. Handy Mike Work Phone: 9(950)363-385012 [place] [address] 08-08-2023 19:44-0500 Heart rate 77 /min Dr. Handy Mike Work Phone: 8(983)756-825264 [place] [address] 08-08-2023 19:44-0500 Inhaled oxygen flow rate 2 L/min Dr. Handy Mike Work Phone: 6(889)019-983164 [place] [address] 08-08-2023 19:44-0500 Respiratory rate 21 /min Dr. Handy Mike Work Phone: 4(638)979-290564 [place] [address] 08-08-2023 19:44-0500 SaO2% (BldA) [Mass fraction] 92 % Dr. Handy Mike Work Phone: 2(456)111-695164 [place] [address] 08-08-2023 19:44-0500 Systolic blood pressure 106 mm[Hg] Dr. Handy Mike Work Phone: 2(934)772-081864 [place] [address] 08-08-2023 17:45-0500 Body temperature 98 [degF] Dr. Handy Mike Work Phone: 4(111)992-708364 [place] [address] 08-08-2023 14:36-0500 Body height 160.[address] Handy Mike Work Phone: 4(364)549-457664 [place] [address] 08-08-2023 14:36-0500 Body mass index (BMI) [Ratio] 47 kg/m2 Dr. Handy Mike Work Phone: 2(132)248-090864 [place] [address] 08-08-2023 14:36-0500 Body weight 120.[address] Handy Mike Work Phone: [facility] 08-08-2023 13:24-0500 Body temperature 99 [degF] Cynthia Jordan DIAMOND PICKER.SODA COLUMN OPERATOR Work Phone: [facility] 08-08-2023 13:24-0500 Body weight 120.29 kg Cynthia Jordan DIAMOND PICKER.SODA COLUMN OPERATOR Work Phone: [facility] 08-08-2023 13:24-0500 Diastolic blood pressure 64 mm[Hg] Cynthiaamandeep Jordan DIAMOND PICKER.SODA COLUMN OPERATOR Work Phone: [facility] 08-08-2023 13:24-0500 Heart rate 80 /min Cynthia Jordan DIAMOND PICKER.SODA COLUMN OPERATOR Work Phone: [facility] 08-08-2023 13:24-0500 Respiratory rate 16 /min Cynthia Jordan DIAMOND PICKER.SODA COLUMN OPERATOR Work Phone: [facility] 08-08-2023 13:24-0500 SaO2% (BldA) [Mass fraction] 90 % Cynthia Jordan DIAMOND PICKER.SODA COLUMN OPERATOR Work Phone: [facility] 08-08-2023 13:24-0500 Systolic blood pressure 122 mm[Hg] Cynthia Jordan DIAMOND PICKER.SODA COLUMN OPERATOR Work Phone: [facility] 08-01-2023 01:35-0500 Body temperature 98.5 [degF] Dr. Handy Mike Work Phone: [facility] 08-01-2023 01:35-0500 Diastolic blood pressure 63 mm[Hg] Dr. Handy Mike Work Phone: [facility] 08-01-2023 01:35-0500 Heart rate 78 /min Dr. Handy Mike Work Phone: 2(157)279-398764 [place] [address] 08-01-2023 01:35-0500 Respiratory rate 18 /min Dr. Handy Mike Work Phone: [facility] 08-01-2023 01:35-0500 SaO2% (BldA) [Mass fraction] 93 % Dr. Handy Mike Work Phone: [facility] 08-01-2023 01:35-0500 Systolic blood pressure 120 mm[Hg] Dr. Handy Mike Work Phone: 9(150)003-793664 [place] [address] 08-01-2023 00:21-0500 Body mass index (BMI) [Ratio] 48.6 kg/m2 Dr. Handy Mike Work Phone: [facility] 08-01-2023 00:21-0500 Body weight 124.[address] Handy Mike Work Phone: 3([phone] [place] [address] 07-31-2023 23:05-0500 Body height 160.[address] Handy Mike Work Phone: [facility] 07-17-2023 12:43-0500 Body weight 122.92 kg Jimmie Amina DIAMOND PICKER.SODA COLUMN OPERATOR Work Phone: [facility] 07-17-2023 12:43-0500 Diastolic blood pressure 86 mm[Hg] Jimmie Amina DIAMOND PICKER.SODA COLUMN OPERATOR Work Phone: [facility] 07-17-2023 12:43-0500 Heart rate 63 /min Jimmie Amina DIAMOND PICKER.SODA COLUMN OPERATOR Work Phone: [facility] 07-17-2023 12:43-0500 Respiratory rate 16 /min Jimmie Amina DIAMOND PICKER.SODA COLUMN OPERATOR Work Phone: [facility] 07-17-2023 12:43-0500 SaO2% (BldA) [Mass fraction] 96 % Jimmie Amina DIAMOND PICKER.SODA COLUMN OPERATOR Work Phone: [facility] 07-17-2023 12:43-0500 Systolic blood pressure 118 mm[Hg] Jimmie Amina DIAMOND PICKER.SODA COLUMN OPERATOR Work Phone: [facility] 05-04-2023 12:16-0500 Body mass index (BMI) [Ratio] 47.8 kg/m2 Dr. Handy Mike Work Phone: 6([phone] [place] [address] 05-04-2023 12:16-0500 Body temperature 98.5 [degF] Dr. Handy Mike Work Phone: 5(517)[phone] [place] [address] 05-04-2023 12:16-0500 Body weight 122.[address] Handy Mike Work Phone: [facility] 05-04-2023 12:16-0500 Diastolic blood pressure 80 mm[Hg] Dr. Handy Mike Work Phone: [facility] 05-04-2023 12:16-0500 Heart rate 76 /min Dr. Handy Mike Work Phone: [facility] 05-04-2023 12:16-0500 Respiratory rate 14 /min Dr. Handy Mike Work Phone: [facility] 05-04-2023 12:16-0500 SaO2% (BldA) [Mass fraction] 95 % Dr. Handy Mike Work Phone: [facility] 05-04-2023 12:16-0500 Systolic blood pressure 132 mm[Hg] Dr. Handy Mike Work Phone: [facility] 04-15-2023 07:05-0500 Body weight 123.11 kg Jimmie Amina DIAMOND PICKER.SODA COLUMN OPERATOR Work Phone: [facility] 04-15-2023 07:05-0500 Diastolic blood pressure 72 mm[Hg] Jimmie Amina DIAMOND PICKER.SODA COLUMN OPERATOR Work Phone: [facility] 04-15-2023 07:05-0500 Heart rate 75 /min Jimmie Amina DIAMOND PICKER.SODA COLUMN OPERATOR Work Phone: [facility] 04-15-2023 07:05-0500 Respiratory rate 16 /min Jimmie Amina DIAMOND PICKER.SODA COLUMN OPERATOR Work Phone: [facility] 04-15-2023 07:05-0500 SaO2% (BldA) [Mass fraction] 99 % Jimmie Amina DIAMOND PICKER.SODA COLUMN OPERATOR Work Phone: [facility] 04-15-2023 07:05-0500 Systolic blood pressure 110 mm[Hg] Jimmie Amina DIAMOND PICKER.SODA COLUMN OPERATOR Work Phone: [facility] 01-16-2023 15:52-0400 Body weight 122.56 kg Jimmie Amina DIAMOND PICKER.SODA COLUMN OPERATOR Work Phone: [facility] 01-16-2023 15:52-0400 Diastolic blood pressure 80 mm[Hg] Jimmie Amina DIAMOND PICKER.SODA COLUMN OPERATOR Work Phone: [facility] 01-16-2023 15:52-0400 Heart rate 78 /min Jimmie Amina DIAMOND PICKER.SODA COLUMN OPERATOR Work Phone: [facility] 01-16-2023 15:52-0400 Respiratory rate 16 /min Jimmie Carlos DIAMOND PICKER.SODA COLUMN OPERATOR Work Phone: [facility] 01-16-2023 15:52-0400 SaO2% (BldA) [Mass fraction] 98 % Jimmie Carlos DIAMOND PICKER.SODA COLUMN OPERATOR Work Phone: [facility] 01-16-2023 15:52-0400 Systolic blood pressure 122 mm[Hg] Jimmie Carlos DIAMOND PICKER.SODA COLUMN OPERATOR Work Phone: [facility] 10-16-2022 09:18-0400 Body temperature 98.01 [degF] Handy Mike DO Work Phone: [facility] 10-16-2022 09:18-0400 Body weight 126.55 kg Handy Mike DO Work Phone: [facility] 10-16-2022 09:18-0400 Diastolic blood pressure 80 mm[Hg] Handy Mike DO Work Phone: [facility] 10-16-2022 09:18-0400 Heart rate 60 /min Handy Mike DO Work Phone: [facility] 10-16-2022 09:18-0400 Respiratory rate 20 /min Handy Mike DO Work Phone: [facility] 10-16-2022 09:18-0400 Systolic blood pressure 120 mm[Hg] Handy Mike DO Work Phone: [facility] 09-13-2022 15:54-0400 Diastolic blood pressure 66 mm[Hg] [facility] 09-13-2022 15:54-0400 Heart rate 62 /min [facility] 09-13-2022 15:54-0400 Respiratory rate 16 /min [facility] 09-13-2022 15:54-0400 SaO2% (BldA) [Mass fraction] 98 % [facility] 09-13-2022 15:54-0400 Systolic blood pressure 130 mm[Hg] [facility] 09-13-2022 13:16-0400 Body height 167.64 cm [facility] 09-13-2022 13:16-0400 Body mass index (BMI) [Ratio] 43.7 kg/m2 [facility] 09-13-2022 13:16-0400 Body temperature 97.9 [degF] [facility] 09-13-2022 13:16-0400 Body weight 122.92 kg [facility] 06-25-2022 13:41-0500 Body temperature 98.8 [degF] Handy Mike DO Work Phone: [facility] 06-25-2022 13:41-0500 Body weight 125.19 kg Handy Mike DO Work Phone: [facility] 06-25-2022 13:41-0500 Diastolic blood pressure 80 mm[Hg] Handy Mike DO Work Phone: [facility] 06-25-2022 13:41-0500 Heart rate 64 /min Handy Mike DO Work Phone: [facility] 06-25-2022 13:41-0500 Respiratory rate 20 /min Handy Mike DO Work Phone: [facility] 06-25-2022 13:41-0500 Systolic blood pressure 110 mm[Hg] Handy Mike DO Work Phone: [facility] 05-28-2022 11:43-0500 Body temperature 97.59 [degF] Jimmie Amina DIAMOND PICKER.SODA COLUMN OPERATOR Work Phone: [facility] 05-28-2022 11:43-0500 Body weight 125.56 kg Jimmie Amina DIAMOND PICKER.SODA COLUMN OPERATOR Work Phone: [facility] 05-28-2022 11:43-0500 Diastolic blood pressure 84 mm[Hg] Jimmie Amina DIAMOND PICKER.SODA COLUMN OPERATOR Work Phone: [facility] 05-28-2022 11:43-0500 Heart rate 66 /min Jimmie Amina DIAMOND PICKER.SODA COLUMN OPERATOR Work Phone: [facility] 05-28-2022 11:43-0500 Respiratory rate 16 /min Jimmie Amina DIAMOND PICKER.SODA COLUMN OPERATOR Work Phone: [facility] 05-28-2022 11:43-0500 SaO2% (BldA) [Mass fraction] 97 % Jimmie Banuelosman DIAMOND PICKER.SODA COLUMN OPERATOR Work Phone: [facility] 05-28-2022 11:43-0500 Systolic blood pressure 120 mm[Hg] Jimmie Banuelosman DIAMOND PICKER.SODA COLUMN OPERATOR Work Phone: [facility] 01-24-2022 16:03-0400 Body temperature 97.7 [degF] Handy Mike DO Work Phone: [facility] 01-24-2022 16:03-0400 Body weight 126.55 kg Handy Mike DO Work Phone: [facility] 01-24-2022 16:03-0400 Diastolic blood pressure 80 mm[Hg] Handy Mike DO Work Phone: [facility] 01-24-2022 16:03-0400 Heart rate 64 /min Handy Mike DO Work Phone: [facility] 01-24-2022 16:03-0400 Respiratory rate 16 /min Handy Mike DO Work Phone: [facility] 01-24-2022 16:03-0400 Systolic blood pressure 110 mm[Hg] Handy Mike DO Work Phone: [facility] 10-04-2021 16:28-0400 Body weight 123.83 kg Handy Mike DO Work Phone: [facility] 10-04-2021 16:28-0400 Diastolic blood pressure 82 mm[Hg] Handy Mike DO Work Phone: [facility] 10-04-2021 16:28-0400 Heart rate 61 /min Handy Mike DO Work Phone: [facility] 10-04-2021 16:28-0400 SaO2% (BldA) [Mass fraction] 98 % Handy Mike DO Work Phone: [facility] 10-04-2021 16:28-0400 Systolic blood pressure 116 mm[Hg] Handy Mcclurerison DO Work Phone: [facility] Encounters Encounter Date Encounter Type Care Provider Facility Start: 03-06-2025 End: 03-06-2025 ambulatory URSULA MC Facility:[facility] Start: 01-06-2025 End: 01-06-2025 ambulatory Handy Aspen McclureMike DO Work Phone: [facility] [place] Comment on above: Results for uti Start: 12-31-2024 End: 12-31-2024 ambulatory URSULA HORTAO Facility:[facility] Start: 12-28-2024 End: 12-28-2024 Patient encounter status Ursula Mc APRN.SODA COLUMN OPERATOR Work Phone: [facility] Work Phone: Start: 12-28-2024 End: 12-28-2024 Periodic preventive med est patient 40-64yrs Ursula Mc APRN.SODA COLUMN OPERATOR Work Phone: [facility] [place] Comment on above: Well adult exam (Parisa dione Dx); Factor V Leiden (HCC); Anticoagulated on Coumadin; Urinary frequency; UTI due to Klebsiella species; Thyromegaly; Family history of thyroid disease; Obesity, Class III, BMI >= 40; Generalized anxiety disorder Start: 12-28-2024 End: 12-28-2024 ambulatory URSULA HORTAO Facility:[facility] Start: 12-28-2024 ambulatory HANDY Aspen MCCLUREMIKE Facil ity:[facility] Start: 12-28-2024 End: 12-28-2024 Subsequent hospital visit by physician Screen Mammo [facility] Comment on above: Encounter for screen ing mammogram for breast cancer [Z12.31] Start: 12-23-2024 End: 12-23-2024 ambulatory URSULA HORTAO Facility:[facility] Start: 12-18-2024 End: 02-17-2025 Follow-up encounter Ursula Mc APRN.SODA COLUMN OPERATOR [facility] Start: 12-17-2024 End: 12-17-2024 Office outpatient visit 25 minutes Ursula Mc APRN.SODA COLUMN OPERATOR Work Phone: [facility] Comment on above: Excoriation of groin , initial encounter (Primary Dx); Candidiasis of skin; Dysuria; Urinary frequency; Screening for depression; Class 3 severe obesity with body mass index (BMI) of 50.0 to 59.9 in adult ([facility]LY [facility]); Anticoagulated on Coumadin; Iron deficiency anemia secondary to inadequate dietary iron intake; Factor V Leiden ([facility]); Bilateral leg edema; Dyslipidemia Start: 12-17-2024 End: 12-17-2024 ambulatory URSULA MC Facility:[facility] Start: 11-09-2024 End: 11-09-2024 Follow-up encounter Cynthia Jordan APRN.SODA COLUMN OPERATOR [facility] Start: 11-07-2024 End: 11-07-2024 ambulatory CYNTHIA JORDAN Facility:[facility] Start: 11-03-2024 End: 12-04-2024 ambulatory Handy L Mike DO Work Phone: [facility] Start: 11-02-2024 End: 11-12-2024 Refill Cynthia Jordan APRN.SODA COLUMN OPERATOR Work Phone: [facility] Comment on above: Refill Request Start: 09-10-2024 End: 09-10-2024 Refill Handy L Mike DO Work Phone: [facility] Comment on above: Refill Request Start: 09-10-2024 End: 09-10-2024 Refill Cynthia Jordan APRN.SODA COLUMN OPERATOR Work Phone: [facility] Comment on above: Refill Request Start: 07-07-2024 End: 07-08-2024 ambulatory Handy L Mike DO Work Phone: [facility] Comment on above: Medication Start: 06-26-2024 End: 06-26-2024 ambulatory Handy L Mike DO Work Phone: [facility] Comment on above: Prescriptions Refill Request Start: 06-06-2024 End: 06-08-2024 Refill Cynthia Jordan DIAMOND PICKER.SODA COLUMN OPERATOR Work Phone: [facility] [place] Comment on above: Refill Request Start: 05-26-2024 End: 05-26-2024 Telephone encounter Jimmie Carlos APRN.SODA COLUMN OPERATOR Work Phone: [facility] [place] Comment on above: Results Start: 05-23-2024 End: 05-23-2024 ambulatory [facility] Facility:[facility] Start: 05-20-2024 End: 05-21-2024 Telephone encounter Handy Mike DO Work Phone: [facility] [place] Comment on above: Results Start: 05-11-2024 End: 05-13-2024 Refill Cynthia Jordan APRN.SODA COLUMN OPERATOR Work Phone: [facility] [place] Start: 05-09-2024 End: 05-09-2024 ambulatory [facility] Facility:[facility] Start: 04-28-2024 End: 04-28-2024 Telephone encounter Jimmie Carlos APRN.SODA COLUMN OPERATOR Work Phone: [facility] Start: 10-15-2023 ambulatory Dia Martel MD Work Phone: Pulmonary Medicine Start: 10-15-2023 Patient encounter procedure Dia Martel MD Work Phone: [facility] Comment on above: Appointment Canceling my appoint ment Start: 10-02-2023 ambulatory Cynthia Jordan DIAMOND PICKER.SODA COLUMN OPERATOR Work Phone: [facility] Comment on above: My feet and ankles Start: 09-26-2023 Documentation procedure Mammog clint Coordinator [facility] Start: 09-26-2023 Letter encounter Mammography Coordinator [facility] Department Start: 09-25-2023 End: 09-25-2023 Patient encounter procedure Cynthia Jordan APRN.SODA COLUMN OPERATOR Work Phone: [facility] Comment on above: Bilateral leg edema (Primary Dx); Factor V Leiden (HCC) Start: 09-25-2023 End: 09-25-2023 Subsequent hospital visit by physician Screen Mammo [facility] Comment on above: Encounter for screen ing mammogram for breast cancer [Z12.31] Start: 09-15-2023 Refill Cynthia Jordan DIAMOND PICKER.SODA COLUMN OPERATOR Work Phone: [facility] Comment on above: Refill Request Start: 08-26-2023 Telephone encounter Cynthia malhotra DIAMOND PICKER.SODA COLUMN OPERATOR Work Phone: [facility] Start: 08-23-2023 ambulatory Jimmie mendez DIAMOND PICKER.SODA COLUMN OPERATOR Work Phone: [facility] [place] Comment on above: Inhaler Start: 08-19-2023 Refill Handy malhotra DO Work Phone: [facility] [place] Comment on above: Refill Request Start: 08-17-2023 Refill Cynthia Jordan DIAMOND PICKER.SODA COLUMN OPERATOR Work Phone: [facility] Comment on above: Refill Request Prescription Start: 08-14-2023 End: 08-14-2023 Patient encounter procedure Cynthia Jordan DIAMOND PICKER.SODA COLUMN OPERATOR Work Phone: [facility] Comment on above: Hospital discharge f ollow-up (Primary Dx); Bacterial pneumonia; SOB (shortness of breath) Start: 08-13-2023 Telephone encounter Jimmie Lantigua DIAMOND PICKER.SODA COLUMN OPERATOR Work Phone: [facility] Comment on above: Results Start: 08-12-2023 Telephone encounter Cynthia malhotra DIAMOND PICKER.SODA COLUMN OPERATOR Work Phone: [facility] [place] Comment on above: Patient Update Start: 08-10-2023 Non-patient / Non-visit Dr. Holly Mike Work Phone: [facility] Work Phone: Start: 08-09-2023 Non-patient / Non-visit Dr. Holly Mike Work Phone: [facility] Work Phone: Start: 08-09-2023 ambulatory Didi Bates cility:[facility] Start: 08-09-2023 Non-patient / Non-visit Dr. Holly Mike Work Phone: [facility] Start: 08-08-2023 ambulatory Pankaj Gutierrez Facil ity:[facility] Start: 08-08-2023 End: 08-10-2023 Evaluation and management of inpatient Pankaj Gutierrez Facility:[facility] Start: 08-08-2023 Non-patient / Non-visit Dr. Holly Mike Work Phone: [facility] Work Phone: Start: 08-08-2023 End: 08-10-2023 Evaluation and management of inpatient Dr. Handy Mike Work Phone: [facility] Work Phone: Start: 08-08-2023 End: 08-08-2023 Patient encounter procedure Cynthia Jordan APRN.SODA COLUMN OPERATOR Work Phone: [facility] Comment on above: SOB (shortness of br eath) (Primary Dx); Generalized weakness; Influenza A; Factor V Leiden (HCC); Hematuria, unspecified type; Leg swelling Start: 08-01-2023 End: 08-01-2023 Emergency department patient visit Handy Mike Facility:[facility] Start: 07-31-2023 End: 08-01-2023 Emergency department patient visit Dr. Handy Mike Work Phone: [facility] Work Phone: Start: 07-31-2023 ambulatory Handy Aspen Herrera son DO Work Phone: [facility] Comment on above: Cough; Diarrhea Start: 07-17-2023 End: 07-17-2023 Patient encounter procedure Jimmie Carlos APRN.SODA COLUMN OPERATOR Work Phone: [facility] [place] Comment on above: Obesity, Class III, BMI 40-49.9 (morbid obesity) ([facility]) (Primary Dx); Generalized anxiety disorder; Anticoagulated on Coumadin Start: 05-13-2023 End: 05-13-2023 Subsequent hospital visit by physician [place] [facility] Work Phone: Radiology Comment on above: Subacute cough [R05. 2] Start: 05-13-2023 Telephone encounter Handy lockwood DO Work Phone: [facility] Comment on above: patient update on CO VID Start: 05-09-2023 Telephone encounter Handy lockwood DO Work Phone: [facility] [place] Comment on above: Medication Question Start: 05-08-2023 Telephone encounter Cynthia malhotra DIAMOND PICKER.SODA COLUMN OPERATOR Work Phone: [facility] Comment on above: Medication Problem Start: 05-08-2023 End: 05-08-2023 ambulatory Cynthia Jordan DIAMOND PICKER.SODA COLUMN OPERATOR Work Phone: [facility] Comment on above: COVID-19 (Primary Dx ) Start: 05-08-2023 End: 05-08-2023 Telemedicine consultation with patient Cynthia Jordan DIAMOND PICKER.SODA COLUMN OPERATOR Work Phone: [facility] Start: 05-06-2023 ambulatory Handy Herrera son DO Work Phone: [facility] Comment on above: Sick Appoitment Start: 05-06-2023 E-mail encounter fro m caregiver [facility] Start: 05-06-2023 Telephone encounter Handy lockwood DO Work Phone: [facility] Comment on above: Head Congestion Start: 05-04-2023 End: 05-04-2023 ambulatory Handy Mike Facility:[facility] Start: 05-04-2023 End: 05-04-[address] Handy Mike Work Phone: [facility] Work Phone: Start: 04-15-2023 End: 11-06-2023 Subsequent hospital visit by physician Xr [facility] Work Phone: Radiology Comment on above: Chronic pain of righ t knee [M25.561, G89.29] Start: 04-15-2023 End: 04-15-2023 Patient encounter procedure Jimmie Amina HARRISONSODA COLUMN OPERATOR Work Phone: [facility] Comment on above: Obesity, Class III, BMI 40-49.9 (morbid obesity) (HCC) (Primary Dx); Chronic pain of right knee; Migraine, unspecified, without mention of intractable migraine without mention of status migrainosus Start: 04-03-2023 ambulatory Handy malhotra DO Work Phone: Internal Medicine [facility] Start: 01-16-2023 End: 01-16-2023 Patient encounter procedure Jimmie Amina HARRISONSODA COLUMN OPERATOR Work Phone: [facility] Comment on above: Irritant contact jose angel matitis, unspecified trigger (Primary Dx); Obesity, Class III, BMI 40-49.9 (morbid obesity) (HCC); Gastroesophageal reflux disease without esophagitis; Anticoagulated on Coumadin; Elevated serum creatinine Start: 2023 Refill Handy malhotra DO Work Phone: [facility] Comment on above: Refill Request Start: 10-16-2022 End: 10-16-2022 Patient encounter procedure Handy Aspen Rashid DO Work Phone: [facility] Comment on above: Obesity, Class III, BMI 40-49.9 (morbid obesity) (HCC) (Primary Dx); Fatty liver; Iron deficiency; Anticoagulated on Coumadin; Dyslipidemia Start: 09-13-2022 End: 09-13-2022 Emergency department patient visit [facility] Start: 08-17-2022 Refill Cynthia Jordan APRN.SODA COLUMN OPERATOR Work Phone: [facility] Comment on above: Refill Request Start: 08-17-2022 Refill Handy malhotra DO Work Phone: [facility] Comment on above: Refill Request Start: 08-11-2022 Get Medical Advice Handy Mike DO Work Phone: [facility] [place] Comment on above: Refills Start: 08-11-2022 Refill Cynthia Julian DIAMOND PICKER.SODA COLUMN OPERATOR Work Phone: [facility] [place] Comment on above: Refill Request; Refi ll Request Start: 07-04-2022 Telephone encounter Handy lockwood DO Work Phone: [facility] Comment on above: Results Start: 07-04-2022 End: 07-04-2022 Subsequent hospital visit by physician [facility] Work Phone: Radiology Comment on above: Elevated alkaline ph osphatase level [R74.8] Start: 06-29-2022 ambulatory Handy malhotra DO Work Phone: [facility] [place] Comment on above: Worried Start: 06-27-2022 Telephone encounter Handy lockwood DO Work Phone: [facility] [place] Comment on above: Appointment Start: 06-26-2022 Telephone encounter Handy lockwood DO Work Phone: [facility] Comment on above: Anticoagulation Start: 06-25-2022 End: 06-25-2022 Patient encounter procedure Handy Mike DO Work Phone: [facility] [place] Comment on above: Generalized anxiety disorder (Primary Dx); Recurrent UTI (urinary tract infection); Factor V Leiden (HCC); Edema of right lower leg; Anticoagulated on Coumadin; Fatigue, unspecified type; Iron deficiency; Varicose veins of bilateral lower extremities with other complications Start: 06-11-2022 Refill Cynthia Jordan DIAMOND PICKER.SODA COLUMN OPERATOR Work Phone: [facility] Comment on above: Refill Request Start: 05-28-2022 End: 05-28-2022 Patient encounter procedure Jimmie Carlos APRN.SODA COLUMN OPERATOR Work Phone: [facility] [place] Comment on above: Burning with urinati on (Primary Dx); Acute low back pain without sciatica, unspecified back pain laterality; Acute cystitis with hematuria Start: 02-27-2022 Documentation procedure Mammog clint Coordinator [facility] Start: 02-27-2022 Letter encounter Mammography Coordinator [facility] Department Start: 02-27-2022 End: 02-27-2022 Subsequent hospital visit by physician Bone Density [facility] Work Phone: Radiology Comment on above: Screening for osteop orosis [Z13.820] Encounter for screen ing mammogram for breast cancer [Z12.31] Start: 01-24-2022 End: 01-24-2022 Patient encounter procedure Handy Mike DO Work Phone: [facility] [place] Comment on above: Factor V Leiden (HCC ) (Primary Dx); Screening for osteoporosis; Generalized anxiety disorder; Situational insomnia; Anticoagulated on Coumadin; Dyslipidemia Start: 01-10-2022 ambulatory Handy malhotra DO Work Phone: [facility] [place] Start: 01-03-2022 ambulatory Handy malhotra DO Work Phone: [facility] [place] Comment on above: BLOOD WORK Start: 01-03-2022 Patient encounter status Eliezer Mike DO Work Phone: [facility] [place] Start: 11-06-2021 ambulatory Handy malhotra DO Work Phone: [facility] [place] Comment on above: [place] Start: 10-25-2021 Refill Handy malhotra DO Work Phone: [facility] Comment on above: Refill Request Start: 10-04-2021 End: 10-04-2021 Patient encounter procedure Handy Mike DO Work Phone: [facility] Comment on above: Situational insomnia (Primary Dx); Factor V Leiden (HCC); Anticoagulated on Coumadin; Generalized anxiety disorder; Fatigue, unspecified type; Hair loss; Anemia, unspecified type Start: 09-29-2021 Telephone encounter Handy lockwood DO Work Phone: [facility] Comment on above: Anticoagulation Start: 09-28-2021 ambulatory Handy malhotra DO Work Phone: [facility] [place] Comment on above: Wayfarin Start: 01-16-2010 End: 07-16-2012 Patient encounter status Cynthia Jordan DIAMOND PICKER.SODA COLUMN OPERATOR Work Phone: [facility] Procedures Date Procedure Procedure Detail Performing Clinician Start: 12-23-2024 Lipid 1996 panel - S virgil or Plasma Screen Wstr Start: 12-17-2024 Culture bacterial quanttative colony count urine Ursula Mc DIAMOND PICKER.SODA COLUMN OPERATOR Work Phone: Start: 12-17-2024 Urnls dip stick/tabl et rgnt auto w/o microscopy Ursula Mc DIAMOND PICKER.SODA COLUMN OPERATOR Work Phone: Start: 12-17-2024 Adult depression scr eening assessment Ursulaanabel Mc DIAMOND PICKER.SODA COLUMN OPERATOR Work Phone: Start: 08-08-2023 CT angiography of ch est with contrast Dr. Handy Mike Work Phone: Start: 08-08-[address] Handy Mike Work Phone: Start: 08-08-2023 Urnls dip stick/tabl et rgnt auto w/o microscopy Cynthia Jordan DIAMOND PICKER.SODA COLUMN OPERATOR Work Phone: Start: 08-01-2023 SARS-CoV-2, Influenz a & RSV (PCR) Dr. Handy Mike Work Phone: Start: 08-01-2023 Plain chest X-ray Dr. Radha Mike Work Phone: Start: 05-13-2023 Radiologic exam ches t 2 views Cynthia Jordan DIAMOND PICKER.SODA COLUMN OPERATOR Work Phone: Start: 04-15-2023 Radiologic exam knee complete 4/more views Jimmie Carlos DIAMOND PICKER.SODA COLUMN OPERATOR Work Phone: Start: 10-16-2022 Lipid 1996 panel - S virgil or Plasma Handy Mike DO Work Phone: Start: 09-13-2022 Plain x-ray of hand Start: 09-13-2022 CT of head without contrast Start: 09-13-2022 Radiologic examinati on of knee Start: 07-04-2022 Us abdominal real ti me w/image limited Handy Mike DO Work Phone: Start: 05-28-2022 Urnls dip stick/tabl et rgnt auto w/o microscopy Jimmie Carlos DIAMOND PICKER.SODA COLUMN OPERATOR Work Phone: Start: 02-27-2022 Dxa bone density may dy 1/> sites axial skel Handy Mike DO Work Phone: Start: 02-27-2022 End: 02-27-2022 Mammography Bulk Order Provider Start: 04-25-2021 Adult depression scr eening assessment Handy Mike DO Work Phone: Start: 12-03-2019 Colonoscopy Handy hudson DO Work Phone: Start: 10-03-2017 Mammography Handy hudson DO Work Phone: Plan of Treatment Date Care Activity Detail Author Start: 09-13-2032 Urine microalbumin profile DTaP,Tdap,Td Vaccine (3 - Td or Tdap) [facility] Start: 12-23-2029 Lipid panel Lipid Screening [facility] Start: 12-02-2029 Colonoscopy COLONOSCOPY [facility] Start: 12-02-2029 COLORECTAL CANCER SCREENING COLORECTAL CANCER SCREENING [facility] Start: 12-02-2029 Screening for malign ant neoplasm of colon [facility] Start: 12-24-2027 Diabetes Screening [facility] Start: 10-17-2027 Lipid 1996 panel - S virgil or Plasma Lipid Screening [facility] Start: 10-17-2027 Lipid panel Lipid Screening [facility] Start: 10-17-2027 LIPID SCREEN LIPID SCREEN [facility] Start: 01-23-2027 LIPID SCREEN LIPID SCREEN [facility] Start: 09-30-2026 Diabetes Screening Diabetes Screenin g [facility] Start: 08-23-2026 Diabetes Screening Diabetes Screenin g [facility] Start: 01-26-2026 Diabetes Screening Diabetes Screenin g [facility] Start: 12-28-2025 Hepatitis B Vaccine (1 of 3 - 19+ 3-dose series) Hepatitis B Vaccine (1 of 3 - 19+ 3-dose series) [facility] Comment on above: Postponed from 01/06 (Declined at this time) Start: 12-28-2025 Hepatitis C screening Hepatitis C Sc goldie [facility] Comment on above: Postponed from 01/06 (Declined at this time) Start: 12-28-2025 HIV screening HIV Screening [facility] Comment on above: Postponed from 01/06 (Declined at this time) Start: 12-28-2025 Screening for malign ant neoplasm of breast Mammogram Screening [facility] Start: 12-17-2025 Covid-19 Vaccine () Covid-19 Vaccine () [facility] Comment on above: Postponed from 02/08 (Declined at this time) Start: 12-17-2025 Depression Screening Depression Scre ening [facility] Start: 12-17-2025 Pneumococcal Vaccine : 50+ (1 of 1 - PCV) Pneumococcal Vaccine: 50+ (1 of 1 - PCV) [facility] Comment on above: Postponed from 01/06 (Declined at this time) Start: 12-17-2025 Shingrix Vaccine (1 of 2) Sinclair grix Vaccine (1 of 2) [facility] Comment on above: Postponed from 01/06 (Declined at this time) Start: 10-16-2025 DIABETES SCREEN DIABETES SCREEN [facility] Start: 07-04-2025 DIABETES SCREEN DIABETES SCREEN [facility] Start: 06-30-2025 End: 06-30-2025 Patient encounter procedure 06/30/2025 6:20 PM EST Office Visit Family [facility] [address] [place] [address] Handy Mike DO [address] [place] [address] 6 month f/up Family [facility] Comment on above: 6 month f/up Start: 02-15-2025 End: 05-17-2025 PT panel - Platelet poor plasma by Coagulation assay PROTHROMBIN TIME Lab Routine Anticoagulated on Coumadin Factor V Leiden (HCC) Expected: 02/15/2025, Expires: 05/17/2025 [facility] Comment on above: Expected: 02/15/2025 , Expires: 05/17/2025 Start: 02-08-2025 Influenza vaccination [facility] Start: 01-23-2025 DIABETES SCREEN DIABETES SCREEN [facility] Start: 01-13-2025 End: 04-14-2025 PT panel - Platelet poor plasma by Coagulation assay PROTHROMBIN TIME Lab Routine Factor V Leiden (HCC) Expected: 01/13/2025, Expires: 04/14/2025 [facility] Work Phone: Comment on above: Expected: 01/13/2025 , Expires: 04/14/2025 Start: 12-30-2024 End: 03-31-2025 Bacteria identified in Urine by Culture BACTERIAL CULTURE, URINE Microbiology Routine UTI due to Klebsiella species Expected: 12/30/2024, Expires: 03/31/2025 [facility] Work Phone: Comment on above: Expected: 12/30/2024 , Expires: 03/31/2025 Start: 12-30-2024 End: 03-31-2025 Urinalysis complete panel - Urine URINALYSIS, WITH MICROSCOPIC Lab Routine UTI due to Klebsiella species Expected: 12/30/2024, Expires: 03/31/2025 [facility] Comment on above: Expected: 12/30/2024 , Expires: 03/31/2025 Start: 12-28-2024 End: 12-28-2024 Patient encounter procedure 12/28/2024 3:40 PM EDT Office Visit Family [address] [address] Ursula Mc, DOUGLAS.SODA COLUMN OPERATOR [address] [place] [address] physical [facility] [place] Comment on above: physical Start: 12-28-2024 End: 03-29-2025 Thyrotropin [Units/volume] in Serum or Plasma THYROID STIMULATING HORMONE Lab Routine Thyromegaly Family history of thyroid disease Expected: 12/28/2024, Expires: 03/29/2025 [facility] Comment on above: Expected: 12/28/2024 , Expires: 03/29/2025 Start: 12-28-2024 End: 03-29-2025 Thyroxine (T4) free [Mass/volume] in Serum or Plasma T4 FREE/FREE THYROXINE Lab Routine Thyromegaly Family history of thyroid disease Expected: 12/28/2024, Expires: 03/29/2025 [facility] Comment on above: Expected: 12/28/2024 , Expires: 03/29/2025 Start: 12-28-2024 End: 12-28-2024 Patient encounter procedure 12/28/2024 9:10 AM EDT Appointment Mammogram [address] [place] [address] Mammogram Start: 12-23-2024 End: 12-23-2024 ambulatory 12/23/2024 7:15 AM EDT Results Only Liz [facility] Draw Station [address] [place] [address] Liz [facility] Draw Station Start: 12-17-2024 End: 05-19-2025 CBC W Auto Differential panel - Blood COMPLETE BLOOD COUNT AND DIFFERENTIAL Lab Routine Anticoagulated on Coumadin Iron deficiency anemia secondary to inadequate dietary iron intake Factor V Leiden (HCC) Expected: 12/17/2024, Expires: 05/19/2025 [facility] Comment on above: Expected: 12/17/2024 , Expires: 05/19/2025 Start: 12-17-2024 End: 05-19-2025 Comprehensive metabolic 2000 panel - Serum or Plasma COMPREHENSIVE METABOLIC PANEL Lab Routine Bilateral leg edema Expected: 12/17/2024, Expires: 05/19/2025 [facility] Comment on above: Expected: 12/17/2024 , Expires: 05/19/2025 Start: 12-17-2024 End: 03-18-2025 Ferritin [Mass/volume] in Serum or Plasma FERRITIN Lab Routine Expected: 12/17/2024, Expires: 03/18/2025 [facility] Comment on above: Expected: 12/17/2024 , Expires: 03/18/2025 Start: 12-17-2024 End: 05-19-2025 Hemoglobin A1c in Blood HEMOGLOBIN A1C Lab Routine Dysuria Urinary frequency Class 3 severe obesity with body mass index (BMI) of 50.0 to 59.9 in adult (HCC) Expected: 12/17/2024, Expires: 05/19/2025 [facility] Comment on above: Expected: 12/17/2024 , Expires: 05/19/2025 Start: 12-17-2024 End: 03-18-2025 Iron and Iron binding capacity panel - Serum or Plasma IRON AND TIBC Lab Routine Anticoagulated on Coumadin Iron deficiency anemia secondary to inadequate dietary iron intake Factor V Leiden (HCC) Expected: 12/17/2024, Expires: 03/18/2025 [facility] Comment on above: Expected: 12/17/2024 , Expires: 03/18/2025 Start: 12-17-2024 End: 05-19-2025 Lipid 1996 panel - Serum or Plasma LIPID PANEL, FASTING Lab Routine Class 3 severe obesity with body mass index (BMI) of 50.0 to 59.9 in adult (HCC) Dyslipidemia Expected: 12/17/2024, Expires: 05/19/2025 [facility] Comment on above: Expected: 12/17/2024 , Expires: 05/19/2025 Start: 12-17-2024 End: 05-19-2025 PT panel - Platelet poor plasma by Coagulation assay PROTHROMBIN TIME Lab Routine Anticoagulated on Coumadin Factor V Leiden (HCC) Expected: 12/17/2024, Expires: 05/19/2025 [facility] Comment on above: Expected: 12/17/2024 , Expires: 05/19/2025 Start: 12-08-2024 End: 12-08-2024 Patient encounter procedure 12/08/2024 3:40 PM EDT Appointment [address] [facility] [place] [address] Mammogram Start: 09-24-2024 Screening for malign ant neoplasm of breast Mammogram Screening [facility] Start: 08-07-2024 Covid-19 Vaccine (#1) Covid-19 Vacci ne (#1) [facility] Comment on above: Postponed from 07/09 (Declined at this time) Start: 08-07-2024 Covid-19 Vaccine () Covid-19 Vaccine () [facility] Comment on above: Postponed from 09/01 /2023 (Declined at this time) Start: 07-06-2024 DIABETES SCREEN DIABETES SCREEN [facility] Start: 06-26-2024 End: 09-25-2024 PT panel - Platelet poor plasma by Coagulation assay PROTHROMBIN TIME Lab Routine Anticoagulated on Coumadin Expected: 06/26/2024, Expires: 09/25/2024 [facility] Work Phone: Comment on above: Expected: 06/26/2024 , Expires: 09/25/2024 Start: 05-12-2024 End: 05-12-2024 Patient encounter procedure 05/12/2024 11:40 AM EST Office Visit Family [facility] [place] [address] [place] [address] Jimmie Carlos APRN.SODA COLUMN OPERATOR [address] [place] [address] physical [facility] [place] Comment on above: physical Start: 04-28-2024 End: 07-28-2024 PT panel - Platelet poor plasma by Coagulation assay PROTHROMBIN TIME Lab Routine Factor V Leiden (HCC) Expected: 04/28/2024, Expires: 07/28/2024 [facility] Work Phone: Comment on above: Expected: 04/28/2024 , Expires: 07/28/2024 Start: 04-15-2024 Hepatitis B Vaccine (1 of 3 - 19+ 3-dose series) Hepatitis B Vaccine (1 of 3 - 19+ 3-dose series) [facility] Comment on above: Postponed from 01/06 (Declined at this time) Start: 04-15-2024 Hepatitis B Vaccine (1 of 3 - 3-dose series) Hepatitis B Vaccine (1 of 3 - 3-dose series) [facility] Comment on above: Postponed from 01/06 (Declined at this time) Start: 04-15-2024 Hepatitis C Screening Hepatitis C [facility] Comment on above: Postponed from 01/06 (Declined at this time) Start: 04-15-2024 Hepatitis C screening Hepatitis C [facility] Comment on above: Postponed from 01/06 (Declined at this time) Start: 04-15-2024 HIV Screening HIV Screening [facility] Comment on above: Postponed from 01/06 (Declined at this time) Start: 04-15-2024 HIV screening HIV Screening [facility] Comment on above: Postponed from 01/06 (Declined at this time) Start: 02-22-2024 LIPID SCREEN LIPID SCREEN [facility] Start: 02-09-2024 Covid-19 Vaccine () Covid-19 Vaccine () [facility] Start: 02-09-2024 Covid-19 Vaccine () Covid-19 Vaccine () [facility] Start: 02-09-2024 Influenza vaccination C [facility] Start: 12-08-2023 Influenza vaccination Influenza Vacc ine (#1) [facility] Comment on above: Postponed from 02/08 (Declined at this time) Start: 10-23-2023 End: 10-23-2023 Patient encounter procedure 10/23/2023 10:00 AM EDT Office Visit Pulmonary Medicine [address] [facility] [place] [address] Mirtha Harper PA-C [address] [facility] [place] [address] [facility] Comment on above: [facility] Start: 10-23-2023 End: 10-23-2023 ambulatory 10/23/2023 9:30 AM EDT Procedure PULM LAB [facility] [address] [facility] [place] [address] Wstr, Pulm Lab [facility] [address] [place] [address] [facility] PULM LAB [facility] WS Comment on above: [facility] Start: 10-16-2023 End: 10-16-2023 Patient encounter procedure 10/16/2023 5:20 PM EDT Office Visit Family Medicine [facility] [address] [facility] [place] [address] Cynthia Jordan APRN.SODA COLUMN OPERATOR [address] [facility] [place] [address] med follow up [facility] [place] Comment on above: med follow up Start: 09-25-2023 End: 12-25-2023 Comprehensive metabolic 2000 panel - Serum or Plasma COMPREHENSIVE METABOLIC PANEL Lab Routine Bilateral leg edema Expected: 09/25/2023, Expires: 12/25/2023 [facility] Work Phone: Comment on above: Expected: 09/25/2023 , Expires: 12/25/2023 Start: 09-25-2023 End: 12-25-2023 Natriuretic peptide.B prohormone N-Terminal [Mass/volume] in Serum or Plasma NT PRO BNP Lab Routine Bilateral leg edema Expected: 09/25/2023, Expires: 12/25/2023 [facility] Work Phone: Comment on above: Expected: 09/25/2023 , Expires: 12/25/2023 Start: 08-14-2023 End: 11-13-2023 CBC W Auto Differential panel - Blood CBC + DIFF Lab Routine Bacterial pneumonia Hospital discharge follow-up Expected: 08/14/2023, Expires: 11/13/2023 [facility] Work Phone: Comment on above: Expected: 08/14/2023 , Expires: 11/13/2023 Start: 08-14-2023 End: 11-13-2023 Comprehensive metabolic 2000 panel - Serum or Plasma COMP METABOLIC PANEL Lab Routine Bacterial pneumonia Hospital discharge follow-up Expected: 08/14/2023, Expires: 11/13/2023 [facility] Work Phone: Comment on above: Expected: 08/14/2023 , Expires: 11/13/2023 Start: 08-14-2023 End: 11-13-2023 PT panel - Platelet poor plasma by Coagulation assay PROTHROMBIN TIME/PT Lab Routine Bacterial pneumonia Hospital discharge follow-up Expected: 08/14/2023, Expires: 11/13/2023 [facility] Work Phone: Comment on above: Expected: 08/14/2023 , Expires: 11/13/2023 Start: 08-10-2023 Patient discharge [facility] Start: 08-09-2023 Microscopic observat ion [Identifier] in Unspecified specimen by Gram stain [facility] Start: 08-09-2023 Respiratory microbia l culture Respiratory Culture [facility] Start: 08-08-2023 Respiratory secretio n precautions [facility] Start: 08-08-2023 Following clinical pathway protocol [facility] Start: 08-08-2023 Ambulation without limitation [facility] Start: 08-08-2023 Assessment of risk o f venous thromboembolism [facility] Start: 08-08-2023 Bacteria identified in Sputum by Culture [facility] Start: 08-08-2023 Catheterization of vein [facility] Start: 08-08-[address] [facility] Start: 08-08-2023 Inhalation therapy procedure [facility] Start: 08-08-2023 Insertion of cathete r into peripheral vein [facility] Start: 08-08-2023 Oxygen therapy [facility] Start: 08-08-2023 Providing care accor ding to standard [facility] Start: 08-08-2023 Respiratory therapy [facility] Start: 08-08-2023 [facility] Start: 08-08-2023 Streptococcus pneumo niae antigen assay [facility] Start: 08-08-2023 Verification routine [facility] Start: 08-08-2023 Admission procedure [facility] Start: 08-08-2023 Respiratory Panel (PCR) Respiratory Panel (PCR) [facility] Start: 08-08-2023 End: 11-07-2023 Urinalysis complete panel - Urine URINALYSIS, WITH MICROSCOPIC Lab Routine Hematuria, unspecified type Expected: 08/08/2023, Expires: 11/07/2023 [facility] Work Phone: Comment on above: Expected: 08/08/2023 , Expires: 11/07/2023 Start: 08-08-2023 Patient referral to dietitian [facility] Start: 08-08-2023 [facility] Start: 08-01-2023 [facility] Start: 06-25-2023 COVID-19 VACCINE (#1) COVID-19 VACCI NE (#1) [facility] Comment on above: Postponed from 07/09 (Declined at this time) Start: 06-10-2023 Behavioral Health Screening Behavioral Health Screening [facility] Start: 06-10-2023 Depression Assessment Depression Ass essment [facility] Start: 02-27-2023 Mammography [facility] Start: 02-27-2023 Screening for malign ant neoplasm of breast Mammogram Screening [facility] Start: 02-08-2023 Influenza vaccination [facility] Start: 01-16-2023 End: 03-18-2023 Comprehensive metabolic 2000 panel - Serum or Plasma COMP METABOLIC PANEL Lab Routine Elevated serum creatinine Expected: 01/16/2023, Expires: 03/18/2023 [facility] Work Phone: Comment on above: Expected: 01/16/2023 , Expires: 03/18/2023 Start: 01-16-2023 End: 03-18-2023 PT panel - Platelet poor plasma by Coagulation assay PROTHROMBIN TIME/PT Lab Routine Anticoagulated on Coumadin Expected: 01/16/2023, Expires: 03/18/2023 [facility] Work Phone: Comment on above: Expected: 01/16/2023 , Expires: 03/18/2023 Start: 12-07-2022 Influenza vaccination INFLUENZA (#1) [facility] Comment on above: Postponed from 02/08 (Declined at this time) Start: 10-16-2022 End: 12-16-2022 Comprehensive metabolic 2000 panel - Serum or Plasma [facility] Work Phone: Comment on above: Expected: 10/16/2022 , Expires: 12/16/2022 Start: 10-16-2022 End: 12-16-2022 Iron and Iron binding capacity panel - Serum or Plasma [facility] Work Phone: Comment on above: Expected: 10/16/2022 , Expires: 12/16/2022 Start: 10-16-2022 End: 12-16-2022 LIPID PANEL, NONFASTING [facility] Work Phone: Comment on above: Expected: 10/16/2022 , Expires: 12/16/2022 Start: 10-01-2022 HPV TESTING HPV TESTING [facility] Start: 10-01-2022 PAP TESTING PAP TESTING [facility] Start: 10-01-2022 Screening for malign ant neoplasm of cervix [facility] Start: 06-27-2022 End: 08-27-2022 ALK PHOS ISOENZYM BL ALK PHOS ISOENZYM BL Lab Routine Elevated alkaline phosphatase level Expected: 06/27/2022, Expires: 08/27/2022 [facility] Work Phone: Comment on above: Expected: 06/27/2022 , Expires: 08/27/2022 Start: 06-25-2022 End: 08-25-2022 25-hydroxyvitamin D3 [Mass/volume] in Serum or Plasma [facility] Work Phone: Comment on above: Expected: 06/25/2022 , Expires: 08/25/2022 Start: 06-25-2022 End: 08-25-2022 CBC W Auto Differential panel - Blood [facility] Work Phone: Comment on above: Expected: 06/25/2022 , Expires: 08/25/2022 Start: 06-25-2022 End: 08-25-2022 Cobalamin (Vitamin B12) [Mass/volume] in Serum or Plasma [facility] Work Phone: Comment on above: Expected: 06/25/2022 , Expires: 08/25/2022 Start: 06-25-2022 End: 08-25-2022 Comprehensive metabolic 2000 panel - Serum or Plasma [facility] Work Phone: Comment on above: Expected: 06/25/2022 , Expires: 08/25/2022 Start: 06-10-2022 DEPRESSION ASSESSMENT DEPRESSION ASS ESSMENT [facility] Start: 04-26-2022 End: 06-26-2022 Comprehensive metabolic 2000 panel - Serum or Plasma COMP METABOLIC PANEL Lab Routine Dyslipidemia Expected: 04/26/2022, Expires: 06/26/2022 [facility] Work Phone: Comment on above: Expected: 04/26/2022 , Expires: 06/26/2022 Start: 04-26-2022 COVID-19 VACCINE (#1) COVID-19 VACCI NE (#1) [facility] Comment on above: Postponed from 01/06 (Declined at this time) Postponed from 07/09 (Declined at this time) Start: 04-26-2022 COVID-19 VACCINE (1) COVID-19 VACCIN E (1) [facility] Comment on above: Postponed from 01/06 (Declined at this time) Start: 04-26-2022 End: 06-26-2022 Lipid 1996 panel - Serum or Plasma LIPID PANEL BASIC Lab Routine Dyslipidemia Expected: 04/26/2022, Expires: 06/26/2022 [facility] Work Phone: Comment on above: Expected: 04/26/2022 , Expires: 06/26/2022 Start: 04-26-2022 End: 06-26-2022 PT panel - Platelet poor plasma by Coagulation assay PROTHROMBIN TIME/PT Lab Routine Factor V Leiden (HCC) Anticoagulated on Coumadin Expected: 04/26/2022, Expires: 06/26/2022 [facility] Work Phone: Comment on above: Expected: 04/26/2022 , Expires: 06/26/2022 Start: 04-26-2022 Urine microalbumin profile DTAP,TDAP,TD (2 - Td or Tdap) [facility] Comment on above: Postponed from 11/15 (Declined at this time) Start: 04-25-2022 Adult depression screening assessment DEPRESSION SCREENING [facility] Start: 02-08-2022 Influenza vaccination [facility] Start: 01-24-2022 End: 03-26-2022 PT panel - Platelet poor plasma by Coagulation assay PROTHROMBIN TIME/PT Lab Routine Factor V Leiden (HCC) Expected: 01/24/2022, Expires: 03/26/2022 [facility] Work Phone: Comment on above: Expected: 01/24/2022 , Expires: 03/26/2022 Start: 01-03-2022 End: 03-05-2022 CBC panel - Blood by Automated count CBC Lab Routine Well adult exam Expected: 01/03/2022, Expires: 03/05/2022 [facility] Work Phone: Comment on above: Expected: 01/03/2022 , Expires: 03/05/2022 Start: 01-03-2022 End: 03-05-2022 Comprehensive metabolic 2000 panel - Serum or Plasma COMP METABOLIC PANEL Lab Routine Well adult exam Expected: 01/03/2022, Expires: 03/05/2022 [facility] Work Phone: Comment on above: Expected: 01/03/2022 , Expires: 03/05/2022 Start: 01-03-2022 End: 03-05-2022 Hemoglobin A1c in Blood HGB A1C Lab Routine Well adult exam Expected: 01/03/2022, Expires: 03/05/2022 [facility] Work Phone: Comment on above: Expected: 01/03/2022 , Expires: 03/05/2022 Start: 01-03-2022 End: 03-05-2022 Lipid 1996 panel - Serum or Plasma LIPID PANEL BASIC Lab Routine Well adult exam Expected: 01/03/2022, Expires: 03/05/2022 [facility] Work Phone: Comment on above: Expected: 01/03/2022 , Expires: 03/05/2022 Start: 01-03-2022 End: 03-05-2022 Thyrotropin [Units/volume] in Serum or Plasma TSH BLD Lab Routine Well adult exam Expected: 01/03/2022, Expires: 03/05/2022 [facility] Work Phone: Comment on above: Expected: 01/03/2022 , Expires: 03/05/2022 Start: 06-10-2021 DEPRESSION ASSESSMENT DEPRESSION ASS ESSMENT [facility] Start: 11-15-2018 Urine microalbumin profile DTAP,TDAP,TD (2 - Td or Tdap) [facility] [facility] Start[facility] 10-03-2018 Mammography MAMMOGRAM [facility] Start: 01-06-2018 Pneumococcal Vaccine : 50+ (1 of 1 - PCV) Pneumococcal Vaccine: 50+ (1 of 1 - PCV) [facility] Start: 01-06-2018 SHINGRIX VACCINE (1 of 2) SINCLAIR GRIX VACCINE (1 of 2) [facility] Start: 01-06-2013 COLOGUARD (FIT-DNA) COLOGUARD (FIT-D NA) [facility] Start: 01-06-[address] COLONOGRAPHY [facility] Start: 01-06-2013 FECAL OCCULT BLOOD FECAL OCCULT BLOO D [facility] Start: 01-06-2013 Screening for malign ant neoplasm of colon [facility] Start: 01-06-2013 SIGMOIDOSCOPY SIGMOIDOSCOPY [facility] Start: 01-06-1987 Hepatitis B Vaccine (1 of 3 - 19+ 3-dose series) Hepatitis B Vaccine (1 of 3 - 19+ 3-dose series) [facility] Start: 01-06-1986 Depression Screening Depression Scre ening [facility] Start: 01-06-1986 HEPATITIS C SCREENING HEPATITIS C [facility] Start: 01-06-1986 Hepatitis C screening Hepatitis C [facility] Start: 01-06-1986 HIV SCREENING HIV SCREENING [facility] Start: 01-06-1986 HIV screening HIV Screening [facility] Start: 1970 COVID-19 VACCINE (#1) COVID-19 VACCI NE (#1) [facility] Start: 1970 HEPATITIS B (1 of 3 - 3-dose series) HEPATITIS B (1 of 3 - 3-dose series) [facility] Start: 1970 Hepatitis B Vaccine (1 of 3 - 3-dose series) Hepatitis B Vaccine (1 of 3 - 3-dose series) [facility] ALK PHOS ISOENZYM BL ALK PHOS IS OENZYM BL Lab Routine Elevated alkaline phosphatase level 07/04/2022 10:20 AM [employer] [facility] Work Phone: Bacteria identified in Urine by Culture URINE CULTURE Microbiology Routine Burning with urination Acute low back pain without sciatica, unspecified back pain laterality Acute cystitis with hematuria 05/28/2022 12:15 PM EST [facility] Work Phone: End: 06-25-2023 Bacteria identified in Urine by Culture URINE CULTURE Microbiology Routine Recurrent UTI (urinary tract infection) Once per week for 52 Occurrences starting 06/25/2022 until 06/25/2023 [facility] Work Phone: Comment on above: Once per week for 52 Occurrences starting 06/25/2022 until 06/25/2023 Bacteria identified in Urine by Culture URINE CULTURE Microbiology Routine Recurrent UTI (urinary tract infection) 06/25/2022 2:32 PM EST [facility] Work Phone: Bacteria identified in Urine by Culture URINE CULTURE Microbiology Routine Hematuria, unspecified type 08/08/2023 2:06 PM EST [facility] Work Phone: Bacteria identified in Urine by Culture BACTERIAL CULTURE, URINE Microbiology Routine Urinary frequency Dysuria 12/17/2024 8:03 AM EDT [facility] End: 12-03-2025 DBT Breast - bilateral screening TJ SCREENING [facility] Radiology Routine Encounter for screening mammogram for breast cancer 1 Occurrences starting 11/03/2024 until 12/03/2025 [facility] Work Phone: Comment on above: 1 Occurrences starti ng 11/03/2024 until 12/03/2025 DBT Breast - bilater al screening TJ SCREENING [facility] Radiology Routine Encounter for screening mammogram for breast cancer 12/28/2024 9:38 AM EDT [facility] Work Phone: End: 02-23-2023 Dxa bone density study 1/> sites axial skel DXA-AXIAL SKELETON Radiology Routine Screening for osteoporosis 1 Occurrences starting 01/24/2022 until 02/23/2023 [facility] Work Phone: Comment on above: 1 Occurrences starti ng 01/24/2022 until 02/23/2023 Erythrocyte mean corpuscular volume determination [facility] Hematocrit [Volume Fraction] of Blood [facility] Hemoglobin [Mass/vol ume] in Blood [facility] Legionella pneumophi la Ag [Presence] in Urine [facility] Leukocytes [#/volume ] in Blood [facility] End: 05-02-2024 TJ SCREENING TJ SCREENING Radiology Routine Encounter for screening mammogram for breast cancer 1 Occurrences starting 04/03/2023 until 05/02/2024 [facility] Work Phone: Comment on above: 1 Occurrences starti ng 04/03/2023 until 05/02/2024 Mean corpuscular hemoglobin concentration determination [facility] Mean corpuscular hemoglobin determination [facility] MG Breast Screening TJ SCREENIN G Radiology Routine Encounter for screening mammogram for breast cancer 09/25/2023 7:49 AM EDT [facility] Work Phone: Neutrophil count [facility] Neutrophil percent differential count [facility] Patient Education [facility] Work Phone: Patient referral [facility] Work Phone: Platelets [#/volume] in Blood [facility] End: 07-16-2024 PT panel - Platelet poor plasma by Coagulation assay PROTHROMBIN TIME/PT Lab Routine Anticoagulated on Coumadin Once per month for 6 Occurrences starting 07/17/2023 until 07/16/2024, 1 completed [facility] Work Phone: Comment on above: Once per month for 6 Occurrences starting 07/17/2023 until 07/16/2024, 1 completed Red blood cell count [facility] Red cell distributio n width determination [facility] Respiratory pathogen s DNA and RNA panel - Respiratory specimen by ILEANA with probe detection [facility] End: 02-09-2023 Screening mammography bi 2-view breast inc cad TJ SCREENING Radiology Routine Encounter for screening mammogram for breast cancer 1 Occurrences starting 01/10/2022 until 02/09/2023 [facility] Work Phone: Comment on above: 1 Occurrences starti ng 01/10/2022 until 02/09/2023 UA DIP, URINE (POC) UA DIP, URIN E (POC) Lab Routine Burning with urination Acute low back pain without sciatica, unspecified back pain laterality Acute cystitis with hematuria Ordered: 05/28/2022 [facility] Work Phone: Comment on above: Ordered: 05/28/2022 UA DIP, URINE (POC) UA DIP, URIN E (POC) Lab Routine Urinary frequency Dysuria Ordered: 12/17/2024 [facility] Work Phone: Comment on above: Ordered: 12/17/2024 End: 08-03-2023 Ultrasound elastography parenchyma US ELASTOGRAPHY LIVER Radiology Routine Fatty liver 1 Occurrences starting 07/04/2022 until 08/03/2023 [facility] Work Phone: Comment on above: 1 Occurrences starti ng 07/04/2022 until 08/03/2023 End: 06-25-2023 Urinalysis complete panel - Urine URINALYSIS, WITH MICROSCOPIC Lab Routine Recurrent UTI (urinary tract infection) Once per week for 52 Occurrences starting 06/25/2022 until 06/25/2023 [facility] Work Phone: Comment on above: Once per week for 52 Occurrences starting 06/25/2022 until 06/25/2023 Urinalysis complete panel - Urine URINALYSIS, WITH MICROSCOPIC Lab Routine Recurrent UTI (urinary tract infection) 06/25/2022 2:32 PM EST [facility] Work Phone: End: 08-03-2023 Us abdominal real time w/image limited US ABD RT UPPER QUADRANT Radiology Routine Fatty liver 1 Occurrences starting 07/04/2022 until 08/03/2023 [facility] Work Phone: Comment on above: 1 Occurrences starti ng 07/04/2022 until 08/03/2023 End: 05-14-2024 XR KNEE GENERAL 4V AP BOTH/PA BOTH/LAT/MERC RIGHT XR KNEE GENERAL 4V AP BOTH/PA BOTH/LAT/MERC RIGHT Radiology Routine Chronic pain of right knee 1 Occurrences starting 04/15/2023 until 05/14/2024 [facility] Work Phone: Comment on above: 1 Occurrences starti ng 04/15/2023 until 05/14/2024 XR KNEE GENERAL 4V A P BOTH/PA BOTH/LAT/MERC RIGHT XR KNEE GENERAL 4V AP BOTH/PA BOTH/LAT/MERC RIGHT Radiology Routine Chronic pain of right knee 04/15/2023 8:21 AM EST [facility] Work Phone: [facility] Immunizations Immunization Date Immunization Notes Care Provider Jana bose 09-13-2022 tetanus toxoid, redu shruthi diphtheria toxoid, and acellular pertussis vaccine, adsorbed [facility] 02-18-2019 influenza virus vaccine, unspecified formulation Handy Mike DO Work Phone: [facility] 11-15-2008 tetanus toxoid, redu shruthi diphtheria toxoid, and acellular pertussis vaccine, adsorbed Handy Mike DO Work Phone: [facility] Payers Date Payer Category Payer [facility] [id number] 2024 Unknown [id number] 2023 Unknown [id number] 2023 Self-pay [id number] 2022 Medicaid [id number] 2021 Private Health Insurance [facility] CHOICE PLUS [id number] 2021-Present [phone] [id number] [place] [address] O [id number] 2021 Private Health Insurance [facility] CHOICE PLUS [id number] 2021-Present [phone] [address] [place] [address] O [id number] Unknown DIANERAMESH [id number] Unknown [facility] [id number] Unknown [facility] [id number] 1994 [id number] Unknown [facility] [id number] Unknown [facility] A [id number] Unknown [id number] Unknown [id number] Unknown [id number] Unknown [id number] Unknown [id number] Unknown [id number] Unknown [id number] Unknown [id number] Social History Date Type Detail Facility Start: 10-20-2018 End: 05-28-2022 Tobacco smoking status NHIS Never smoked tobacco [facility] Start: 07-05-2021 End: 12-17-2024 Alcohol intake Current non-drinker of alcohol (finding) [facility] Start: 04-25-2021 End: 05-28-2022 History SDOH Alcohol Frequency 1 [facility] Start: 04-25-2021 End: 05-28-2022 History SDOH Alcohol Std Drinks 98 [facility] Start: 04-25-2021 End: 05-28-2022 History SDOH Social Connections Phone 2 [facility] Start: 04-25-2021 History SDOH Social Connections Living 5 [facility] Start: 04-25-2021 End: 05-28-2022 History SDOH Stress 3 [facility] Start: 04-06-2020 Education 14 [facility] Start: 1970 Sex Assigned At Not on file C [facility] Start: 09-24-2021 End: 02-27-2022 Exposure to SARS-CoV-2 (event) Not sure [facility] Start: 10-20-2018 End: 05-28-2022 Tobacco use and exposure Smokeless tobacco non-user [facility] Work Phone: Start: 05-28-2022 History SDOH Alcohol Std Drinks 0 [facility] Start: 05-28-2022 History SDOH Social Connections Living 8 [facility] Start: 09-13-2022 End: 08-08-2023 Tobacco smoking status IDIS Unknown if ever smoked [facility] Start: 1970 Sex Assigned At Female W [facility] Start: 05-28-2022 End: 05-05-2024 History of Social function [facility] Start: 05-28-2022 End: 05-05-2024 Social connection and isolation panel [facility] Start: 05-11-2012 In a typical week, h ow many times do you talk on the telephone with family, friends, or neighbors? Patient refused [facility] Are you now , , , , never or living with a partner? Living with partner [facility] How often to you hav e a drink containing alcohol? Never [facility] (I/We) worried wheth er (my/our) food would run out before (I/we) got money to buy more. DK or Refused [facility] At any time in the p ast 12 months, were you homeless or living in longterm [including now]? No [facility] How hard is it for y ou to pay for the very basics like food, housing, medical care, and heating Not very hard [facility] Do you feel stress - tense, restless, nervous, or anxious, or unable to sleep at night because your mind is troubled all the time - these days [OSQ] Rather much [facility] (I/We) worried wheth er (my/our) food would run out before (I/we) got money to buy more. Never true [facility] Are you now , , , , never or living with a partner? [facility] Do you feel stress - tense, restless, nervous, or anxious, or unable to sleep at night because your mind is troubled all the time - these days [OSQ] To some extent [facility] Goals Date Patient Goal Desired Activity /State Functional Status Date Assessment Result Facility 08-10-2023 Functional status Ambulates;Chair [facility] Work Phone: 12-03-2014 Are you deaf, or do you have serious difficulty hearing No 12/03/2014 2:24 PM EDT Dolores Maria [facility] 12-03-2014 Are you blind, or do you have serious difficulty seeing, even when wearing glasses No 12/03/2014 2:24 PM EDT Dolores Maria [facility] 12-03-2014 Do you have serious difficulty walking or climbing stairs No 12/03/2014 2:24 PM EDT Dolores Maria [facility] 12-03-2014 Do you have difficul ty dressing or bathing No 12/03/2014 2:24 PM EDT Dolores Maria [facility] 12-03-2014 Because of a physica l, mental, or emotional condition, do you have difficulty doing errands alone such as visiting a physician's office or shopping No 12/03/2014 2:24 PM EDT Dolores Maria [facility] Mental Status Date Assessment Result Facility 08-10-2023 Cognitive function Voice/Name [facility] Work Phone: 12-03-2014 Because of a physica l, mental, or emotional condition, do you have serious difficulty concentrating, remembering, or making decisions No 12/03/2014 2:24 PM EDT Dolores Maria [facility] Clinical Notes 10-09-2010 to 12-28-2024 Patient InstructionsUrsula Mc APRN.SODA COLUMN OPERATOR - 12/28/2024 4:00 PM Juana Conde Mammo [facility] - 12/28/2024 9:10 AM ANNABELLETCUrsula kiran APRN.SODA COLUMN OPERATOR - 12/17/2024 7:31 AM EDTPatient Instructions Note Date & Type Note Facility 12-28-2024 Instructions Ursula Mc APRN.SODA COLUMN OPERATOR - 12/28/2024 4:04 PM EDT Diet and exercise for continued improvement on cholesterol levels For diet, please focus on: - More lean meats like chicken, fish, turkey rather than red meats - Less carbs and when having carbs, more complex carbs such as beans, wheat or multigrain and brown rice - more vegetables - health fats such as olive oil, nuts, avocados For exercise: Please try and aim for a goal of 30 min a day most days of the week with a goal of 150min/wk. Brisk walking is plenty. If you can increase it later, then that is good. If you are going from little or no exercise to this new routine, do not go too extreme. If you already exercise, I encourage you to try and do a little more than what you have been doing. Continue working on increasing water intake Schedule Pap/routine women's well visit Next INR- anytime on or after 02/15 Get your urine rechecked and your thyroid labs drawn on Saturday or after documented in this encounter [facility] 12-28-2024 Note HNO ID: [id number] Author: URSULA MC APRN.CNP Service: ? Author Type: Nurse Practitioner Type: Progress Notes Filed: 12/30/2024 00:19 Note Text: This is a 54 year old female who presents today with: physical HISTORY OF PRESENT ILLNESS: Wellness exam - Former smoker, quit 30 years ago. - Tubal ligation; no menses for a long time. - Menopause at age 43-44; family history of early menopause (mother at age 40). - Last Pap smear date unknown; recent mammogram performed this morning. - Family history of thyroid issues; no personal history of thyroid issues. Factor V Leiden: - Managed with Coumadin; INR checked every couple of months. - Recent INR: 2.7; previous INR: 2.6-2.7. - Consistent Coumadin dosing, rarely has changes in it UTI: - Completed antibiotic course recently. - Persistent urinary frequency and irritation (skin irritation improving - Denies fevers. Rash: - Rash treated with a cream, used twice, but discontinued due to worsening symptoms. - Rash is improving after discontinuing the cream and just good hygiene care, denies need for further treatment Weight Management: - Lost 3 lbs since last visit. 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 - Struggles with water intake, describing it as horrible. - Attempts to increase hydration by consuming ice and flavored water. - Occasionally drinks BodyArmor for hydration. - Enjoys sweet tea as a vice. Anxiety/depression Reports no concerns, things are getting better and medication is effective PAST MEDICAL HISTORY: PAST MEDICAL HISTORY Diagnosis Date DVT of upper extremity (deep vein thrombosis) ([facility]) 2004 left upper arm after gallbladder surgery Factor V Leiden mutation ([facility]) BEBE (generalized anxiety disorder) Migraine, unspecified, without mention of intractable migraine without mention of status migrainosus Nummular eczema 07/2014 Other acute embolism veins 2007 left leg Symptomatic menopausal or female climacteric states perimenopausal PAST SURGICAL HISTORY Procedure Laterality Date DELIVERY ONLY 1996 , low cervical CHOLECYSTECTOMY 2004 Cholecystectomy COLONOSCOPY FLX DX W/COLLJ SPEC WHEN PFRMD 12/03/2019 Colonoscopy ESOPHAGOGASTRODUODENOSCOPY TRANSORAL DIAGNOSTIC 12/03/2019 EGD LIG/TRNSXJ FLP TUBE ABDL/VAG APPR UNI/BI 1996 ALLERGIES Uphjtsh-Kiu-Ljbpcks-Acetam-Caf, Topamax [Topiramate], and Vicodin [Hydrocodone-Acetaminophen] MEDICATIONS Current Outpatient Medications Medication Sig furosemide (LASIX) 20 mg tablet Take 1 tablet by mouth once daily. warfarin (COUMADIN) 2 mg tablet Take 4 mg M-W-F and 6 mg all other days of the week (patient has 6 mg rx also) propranolol (INDERAL) 40 mg tablet Take 1 tablet by mouth once daily. ferrous sulfate (SLOW FE) 140 mg (45 mg iron) TbER Take 1 tablet by mouth two times a day with meals. FLUoxetine (PROZAC) 40 mg capsule Take 1 capsule by mouth once daily. FLUoxetine (PROZAC) 20 mg capsule Take 1 capsule by mouth once daily. Take with 40 mg capsule to total 60 mg a day valACYclovir (VALTREX) 1 gram tablet take 1 tablet by mouth three times a day for 7 days for herpes outbreaks warfarin (COUMADIN) 6 mg tablet Take 4 mg M-W-F and 6 mg all the other days of the week (patient will have 2 mg rx also) omeprazole (PRILOSEC) 20 mg capsule Take 1 capsule by mouth once daily. busPIRone (BUSPAR) 7.5 mg tablet Take 1 tablet by mouth at bedtime as needed (INSOMNIA). magnesium oxide 200 mg magnesium tab Take by mouth. Pt takes twice daily cholecalciferol, vitamin D3, 10 mcg (400 unit) cap Take 400 Units by mouth once daily. Pt takes twice daily vitamin B complex (B COMPLEX 1 ORAL) Take by mouth. No current facility-administered medications for this visit. FAMILY HISTORY Problem Relation Age of Onset Diabetes Mother diet Thyroid Mother Factor 5 Leiden Mother Hypertension Father asthma, DM Diabetes Father on pills Asthma Father COPD Father Cancer Maternal Grandfather lung - smoker Stroke Paternal Grandmother age 84 Social History Tobacco Use Smoking status: Never Smokeless tobacco: Never Substance Use Topics Alcohol use: No Drug use: No REVIEW OF SYSTEMS GENERAL: No weight loss, malaise or fevers/chills. +wt gain HEENT: Negative for frequent or significant headaches, No changes in hearing or vision. NECK: Negative for lumps, goiter, pain and significant neck swelling RESPIRATORY: Negative hemoptysis, wheezing, dyspnea or shortness of breath; occasional cough without other symptoms CARDIOVASCULAR: Negative for chest pain, orthopnea, or palpitations; +leg swelling chronically GI: No nausea, vomiting, or diarrhea/constipation. No hematochezia/melena. No heartbu (more content not included)... [facility] 12-28-2024 History of Presen t illness Narrative This is a 54 year old female who presents today with: physical HISTORY OF PRESENT ILLNESS: Wellness exam - Former smoker, quit 30 years ago. - Tubal ligation; no menses for a long time. - Menopause at age 43-42; family history of early menopause (mother at age 40). - Last Pap smear date unknown; recent mammogram performed this morning. - Family history of thyroid issues; no personal history of thyroid issues. Factor V Leiden: - Managed with Coumadin; INR checked every couple of months. - Recent INR: 2.7; previous INR: 2.6-2.7. - Consistent Coumadin dosing, rarely has changes in it UTI: - Completed antibiotic course recently. - Persistent urinary frequency and irritation (skin irritation improving - Denies fevers. Rash: - Rash treated with a cream, used twice, but discontinued due to worsening symptoms. - Rash is improving after discontinuing the cream and just good hygiene care, denies need for further treatment Weight Management: - Lost 3 lbs since last visit. 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 - Struggles with water intake, describing it as horrible. - Attempts to increase hydration by consuming ice and flavored water. - Occasionally drinks BodyArmor for hydration. - Enjoys sweet tea as a vice. Anxiety/depression Reports no concerns, things are getting better and medication is effective PAST MEDICAL HISTORY: PAST MEDICAL HISTORY Diagnosis Date DVT of upper extremity (deep vein thrombosis) (HCC) 2004 left upper arm after gallbladder surgery Factor V Leiden mutation (HCC) BEBE (generalized anxiety disorder) Migraine, unspecified, without mention of intractable migraine without mention of status migrainosus Nummular eczema 07/2014 Other acute embolism veins 2008 left leg Symptomatic menopausal or female climacteric states perimenopausal PAST SURGICAL HISTORY Procedure Laterality Date DELIVERY ONLY 1996 , low cervical CHOLECYSTECTOMY 2004 Cholecystectomy COLONOSCOPY FLX DX W/COLLJ SPEC WHEN PFRMD 12/03/2019 Colonoscopy ESOPHAGOGASTRODUODENOSCOPY TRANSORAL DIAGNOSTIC 12/03/2019 EGD LIG/TRNSXJ FLP TUBE ABDL/VAG APPR UNI/BI 1996 ALLERGIES Jcrvccl-Lta-Gmfpvqw-Acetam-Caf, Topamax [Topiramate], and Vicodin [Hydrocodone-Acetaminophen] MEDICATIONS Current Outpatient Medications Medication Sig furosemide (LASIX) 20 mg tablet Take 1 tablet by mouth once daily. warfarin (COUMADIN) 2 mg tablet Take 4 mg M-W-F and 6 mg all other days of the week (patient has 6 mg rx also) propranolol (INDERAL) 40 mg tablet Take 1 tablet by mouth once daily. ferrous sulfate (SLOW FE) 140 mg (45 mg iron) TbER Take 1 tablet by mouth two times a day with meals. FLUoxetine (PROZAC) 40 mg capsule Take 1 capsule by mouth once daily. FLUoxetine (PROZAC) 20 mg capsule Take 1 capsule by mouth once daily. Take with 40 mg capsule to total 60 mg a day valACYclovir (VALTREX) 1 gram tablet take 1 tablet by mouth three times a day for 7 days for herpes outbreaks warfarin (COUMADIN) 6 mg tablet Take 4 mg M-W-F and 6 mg all the other days of the week (patient will have 2 mg rx also) omeprazole (PRILOSEC) 20 mg capsule Take 1 capsule by mouth once daily. busPIRone (BUSPAR) 7.5 mg tablet Take 1 tablet by mouth at bedtime as needed (INSOMNIA). magnesium oxide 200 mg magnesium tab Take by mouth. Pt takes twice daily cholecalciferol, vitamin D3, 10 mcg (400 unit) cap Take 400 Units by mouth once daily. Pt takes twice daily vitamin B complex (B COMPLEX 1 ORAL) Take by mouth. No current facility-administered medications for this visit. FAMILY HISTORY Problem Relation Age of Onset Diabetes Mother diet Thyroid Mother Factor 5 Leiden Mother Hypertension Father asthma, DM Diabetes Father on pills Asthma Father COPD Father Cancer Maternal Grandfather lung - smoker Stroke Paternal Grandmother age 84 Social History Tobacco Use Smoking status: Never Smokeless tobacco: Never Substance Use Topics Alcohol use: No Drug use: No REVIEW OF SYSTEMS GENERAL: No weight loss, malaise or fevers/chills. +wt gain HEENT: Negative for frequent or significant headaches, No changes in hearing or vision. NECK: Negative for lumps, goiter, pain and significant neck swelling RESPIRATORY: Negative hemoptysis, wheezing, dyspnea or shortness of breath; occasional cough without other symptoms CARDIOVASCULAR: Negative for chest pain, orthopnea, or palpitations; +leg swelling chronically GI: No nausea, vomiting, or diarrhea/constipation. No hematochezia/melena. No heartburn or reflux symptoms. : No history of dysuria, no incontinence but nocturnal urgency; +frequency MUSCULOSKELETAL: Negative for joint pain or swelling. SKIN: Negative for lesions, rash, and itching (improving abdominal fold /groin rash) ENDOCRINE: Negative for cold or heat intolerance, polyuria, polydipsia and goiter NEURO: No history of headaches, syncope, paralysis, seizures or tremors EXAM: BP 124/76 (BP Site: Left Arm, BP Cuff Size: Large Adult) Pulse 67 Resp 14 Ht 164 cm (5' 4.57) Wt 131.3 kg (289 lb 6.4 oz) LMP 07/30/2014 SpO2 98% BMI 48.81 kg/m PHYSICAL EXAM: General Appearance: Well appearing, alert, in no acute distress, well-hydrated, well nourished..morbidly obese; affect appropriate, pleasant, good hygiene Skin: Skin color, texture, turgor normal, no suspicious rashes or lesions. Resolving groin excoriation Head: Normocephalic, no masses, lesions, tenderness or abnormalities. Eyes: Anicteric sclera. Pupils are equally round and reactive to light. Extraocular movements are intact. . Ears: External ears normal, canals clear. Nose/Sinuses: Nares normal, septum midline, mucosa normal, no drainage or sinus tenderness. Oropharynx: Lips, mucosa, and tongue normal, teeth and gums normal, oropharynx normal. Neck: Supple, no adenopathy; thyroid and or throat feels full or enlarged but unable to feel any nodules or specific details in thyroid Lungs: Lungs clear to auscultation. No wheezing, rhonchi, rales.. Heart: RRR without murmur, gallop, or rubs. No ectopy. Abdomen: obese Abdomen and soft, non-tender. Bowel sounds normal Extremities: No deformities, edema, skin discoloration, clubbing or cyanosis. Good capillary refill. . Musculoskeletal: No joint swelling, deformity, or tenderness. Peripheral Pulses: Normal. Neurologic: Gait normal. Reflexes normal and symmetric. Sensation grossly intact.. ASSESSMENT/PLAN: 1. Well adult exam - ICD9: V70.0, ICD10: Z00.00 (primary diagnosis) - Counseled on healthy diet and regular exercise - Discussed need and benefit for weight loss. BMI 48.81 kg/(m^2) - Breast cancer screening - ordered mammogram - Patient counseled on and acknowledged vaccine benefits/risks/side effects, offered current outdated vaccines, declines - Follow up for annual exam in one year 2. Factor V Leiden (HCC) - ICD9: 289.81, ICD10: D68.51 3. Anticoagulated on Coumadin - ICD9: V58.61, ICD10: Z79.01 - long time anticoagulation, well aware of risks and foods that affect her therapy - PROTHROMBIN TIME -continue coumadin as ordered 4. Urinary frequency - ICD9: 788.41, ICD10: R35.0 Recheck urine - Patient education for prevention given - increase water intake 5. UTI due to Klebsiella species - ICD9: 599.0, 041.84, ICD10: N39.0, B96.89 Treatment almost completed - Patient education for prevention given - BACTERIAL CULTURE, URINE repeat to reassess post treatment - URINALYSIS, WITH MICROSCOPIC 6. Thyromegaly - ICD9: 240.9, ICD10: E01.0 7. Family history of thyroid disease - ICD9: V18.19, ICD10: Z83.49 - THYROID STIMULATING HORMONE - T4 FREE/FREE THYROXINe 8. Obesity, Class III, BMI >= 40 - ICD9: 278.01, ICD10: E66.813 Weight increased from September to December, decreased 4# over the last 2 weeks - Behavioral intervention- dietary changes and increase activity - trying to focus more on health as the last year has been difficult 9. Generalized anxiety disorder - buspar prn for insomnia, continue - continue prozac as ordered Discussed treatment plan and patient voices understanding. Patient's questions answered appropriately. Medications and potential side effects were discussed and patient voices understanding. Return to the office as scheduled or as needed for worsening/no improvement. Ursula Mc APRN.ROS Recording using [employer] software for draft documentation of the visit was discussed with the patient/authorized customer operations representative; all questions welcomed and answered. Patient/authorized customer operations representative agreed to proceed documented in this encounter [facility] 12-28-2024 History of Presen t illness Narrative Radiology Service Progress Note PATIENT NAME: Vero Holt DATE OF SERVICE: December 28, 2024 TIME: 9:28 AM PATIENT IDENTITY VERIFICATION COMPLETED USING TWO (2) IDENTIFIERS: Name and Date of confirmed by patient verbally. FALL SCREENING: Has the patient had 2 falls in the last year or 1 fall with injury or currently using an Ambulatory Assistive Device (Walker, Cane, Wheelchair, Crutches, etc.)? No PATIENT GENDER DATA: Assigned female at . status: : No status: NO. PATIENT RELEVANT IMPLANT DATA REVIEWED: Not Applicable PATIENT PRESENTS WITH AN IMPLANTABLE OR ATTACHED AIRCRAFT FUELER: No RADIOLOGY DEPARTMENT: Mammography PERIPHERAL IV DATA: Not applicable SIGNED BY: Flakita Miller December 28, 2024 9:28 AM documented in this encounter [facility] 12-28-2024 Note HNO ID: [id number] Author: JUAAN FRIAS Mammo Tech Service: ? Author Type: Technologist Type: Progress Notes Filed: 12/28/2024 09:28 Note Text: Radiology Service Progress Note PATIENT NAME: Vero Holt DATE OF SERVICE: December 28, 2024 TIME: 9:28 AM PATIENT IDENTITY VERIFICATION COMPLETED USING TWO (2) IDENTIFIERS: Name and Date of confirmed by patient verbally. FALL SCREENING: Has the patient had 2 falls in the last year or 1 fall with injury or currently using an Ambulatory Assistive Device (Walker, Cane, Wheelchair, Crutches, etc.)? No PATIENT GENDER DATA: Assigned female at . status: : No status: NO. PATIENT RELEVANT IMPLANT DATA REVIEWED: Not Applicable PATIENT PRESENTS WITH AN IMPLANTABLE OR ATTACHED AIRCRAFT FUELER: No RADIOLOGY DEPARTMENT: Mammography PERIPHERAL IV DATA: Not applicable SIGNED BY: Flakita Miller December 28, 2024 9:28 AM [facility] 12-17-2024 Note HNO ID: [id number] Author: URSULA MC APRN.CNP Service: ? Author Type: Nurse Practitioner Type: Progress Notes Filed: 12/18/2024 13:03 Note Text: This is a 54 year old female who presents today with: Vero Aspen Holt is a 54-year-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 HISTORY OF PRESENT ILLNESS: Rash: - New onset rash in the groin area. - Describes the rash as painful, particularly at the end of the day after work. - Denies pruritus. - Has not used any powders or topical treatments Increased Urinary Frequency: - Increased urinary frequency, particularly nocturia. - Occasional dysuria. - Denies back or flank pain. 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 - Last INR check in October; usually checks INR every 3-6 months, but lately has been bad about follow up as her boyfriend was on hospice and recently -alternating doses of coumadin -per patient, hematology told her to not let PCP check her labs all the time and to not adjust her dosing even if it's off , just repeat in a month - Denies hematuria or melena or any other signs of bleeding PAST MEDICAL HISTORY: PAST MEDICAL HISTORY Diagnosis Date DVT of upper extremity (deep vein thrombosis) (HCC) 2004 left upper arm after gallbladder surgery Factor V Leiden mutation (HCC) BEBE (generalized anxiety disorder) Migraine, unspecified, without mention of intractable migraine without mention of status migrainosus Nummular eczema 07/2014 Other acute embolism veins 2008 left leg Symptomatic menopausal or female climacteric states perimenopausal PAST SURGICAL HISTORY Procedure Laterality Date DELIVERY ONLY 1996 , low cervical CHOLECYSTECTOMY 2004 Cholecystectomy COLONOSCOPY FLX DX W/COLLJ SPEC WHEN PFRMD 12/03/2019 Colonoscopy ESOPHAGOGASTRODUODENOSCOPY TRANSORAL DIAGNOSTIC 12/03/2019 EGD LIG/TRNSXJ FLP TUBE ABDL/VAG APPR UNI/BI 1996 ALLERGIES Aojzigk-Hlw-Aztqxpt-Acetam-Caf, Topamax [Topiramate], and Vicodin [Hydrocodone-Acetaminophen] MEDICATIONS Current Outpatient Medications Medication Sig warfarin (COUMADIN) 2 mg tablet Take 4 mg and 6 mg all other days of the week (patient has 6 mg rx also) propranolol (INDERAL) 40 mg tablet Take 1 tablet by mouth once daily. ferrous sulfate (SLOW FE) 140 mg (45 mg iron) TbER Take 1 tablet by mouth two times a day with meals. FLUoxetine (PROZAC) 40 mg capsule Take 1 capsule by mouth once daily. FLUoxetine (PROZAC) 20 mg capsule Take 1 capsule by mouth once daily. Take with 40 mg capsule to total 60 mg a day valACYclovir (VALTREX) 1 gram tablet take 1 tablet by mouth three times a day for 7 days for herpes outbreaks warfarin (COUMADIN) 6 mg tablet Take 4 mg - and 6 mg all the other days of the week (patient will have 2 mg rx also) omeprazole (PRILOSEC) 20 mg capsule Take 1 capsule by mouth once daily. busPIRone (BUSPAR) 7.5 mg tablet Take 1 tablet by mouth at bedtime as needed (INSOMNIA). magnesium oxide 200 mg magnesium tab Take by mouth. Pt takes twice daily cholecalciferol, vitamin D3, 10 mcg (400 unit) cap Take 400 Units by mouth once daily. Pt takes twice daily vitamin B complex (B COMPLEX 1 ORAL) Take by mouth. nystatin-triamcinolone (MYCOLOG II) cream Apply to affected area two times a day. Abdominal fold and groin twice daily x 14 days and as needed after that fluconazole (DIFLUCAN) 150 mg tablet Take 1 tablet by mouth one time only for 1 dose. furosemide (LASIX) 20 mg tablet Take 1 tablet by mouth once daily. No current facility-administered medications for this visit. FAMILY HISTORY Problem Relation Age of Onset Diabetes Mother diet Thyroid Mother Factor 5 Leiden Mother Hypertension Father asthma, DM Diabetes Father on pills Asthma Father COPD Father Cancer Maternal Grandfather lung - smoker Stroke Paternal Grandmother age 84 Social History Tobacco Use Smoking status: Never Smokeless tobacco: Never Substance Use Topics Alcohol use: No Drug use: No REVIEW OF SYSTEMS Constitutional: (-) fatigue Skin: (+) painful rash, (-) pruritus Genitourinary: (+) urinary frequency, (+) nocturia, (+) dysuria, (-) flank pain Musculoskeletal: (-) back pain See HPI EXAM: BP 132/62 (BP Site: Left Arm, BP Position: Sitting, BP Cuff Size: Large Adult) Pulse 66 Temp 36.4 ?C (97.6 ?F) Resp 14 Wt 132.5 kg (292 lb) LMP 07/30/2014 SpO2 99% BMI 50.12 kg/m? PHYSICAL EXAM: General Appearance: Well appearing, alert, in no acute distress, well-hydrated, well nourished..obese Skin: Skin color is pale, texture, turgor normal. Abdominal fold and groin reddened, excoriated. Lungs: Lungs clear to auscultation. No wheezing, rhonchi, rales.. Heart: RRR without murmur, gallop, or rubs. No ectopy. ASSESSMENT/PLAN: 1. Excoriation of groin, initial en (more content not included)... [facility] 12-17-2024 History of Presen t illness Narrative This is a 54 year old female who presents today with: Vero Holt is a 54-year-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 HISTORY OF PRESENT ILLNESS: Rash: - New onset rash in the groin area. - Describes the rash as painful, particularly at the end of the day after work. - Denies pruritus. - Has not used any powders or topical treatments Increased Urinary Frequency: - Increased urinary frequency, particularly nocturia. - Occasional dysuria. - Denies back or flank pain. 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 - Last INR check in October; usually checks INR every 3-6 months, but lately has been bad about follow up as her boyfriend was on hospice and recently -alternating doses of coumadin -per patient, hematology told her to not let PCP check her labs all the time and to not adjust her dosing even if it's off , just repeat in a month - Denies hematuria or melena or any other signs of bleeding PAST MEDICAL HISTORY: PAST MEDICAL HISTORY Diagnosis Date DVT of upper extremity (deep vein thrombosis) (HCC) 2004 left upper arm after gallbladder surgery Factor V Leiden mutation (HCC) BEBE (generalized anxiety disorder) Migraine, unspecified, without mention of intractable migraine without mention of status migrainosus Nummular eczema 07/2014 Other acute embolism veins 2007 left leg Symptomatic menopausal or female climacteric states perimenopausal PAST SURGICAL HISTORY Procedure Laterality Date DELIVERY ONLY 1996 , low cervical CHOLECYSTECTOMY 2004 Cholecystectomy COLONOSCOPY FLX DX W/COLLJ SPEC WHEN PFRMD 12/03/2019 Colonoscopy ESOPHAGOGASTRODUODENOSCOPY TRANSORAL DIAGNOSTIC 12/03/2019 EGD LIG/TRNSXJ FLP TUBE ABDL/VAG APPR UNI/BI 1996 ALLERGIES Qmfsupr-Wih-Bnrxqiz-Acetam-Caf, Topamax [Topiramate], and Vicodin [Hydrocodone-Acetaminophen] MEDICATIONS Current Outpatient Medications Medication Sig warfarin (COUMADIN) 2 mg tablet Take 4 mg M-W-F and 6 mg all other days of the week (patient has 6 mg rx also) propranolol (INDERAL) 40 mg tablet Take 1 tablet by mouth once daily. ferrous sulfate (SLOW FE) 140 mg (45 mg iron) TbER Take 1 tablet by mouth two times a day with meals. FLUoxetine (PROZAC) 40 mg capsule Take 1 capsule by mouth once daily. FLUoxetine (PROZAC) 20 mg capsule Take 1 capsule by mouth once daily. Take with 40 mg capsule to total 60 mg a day valACYclovir (VALTREX) 1 gram tablet take 1 tablet by mouth three times a day for 7 days for herpes outbreaks warfarin (COUMADIN) 6 mg tablet Take 4 mg M-W-F and 6 mg all the other days of the week (patient will have 2 mg rx also) omeprazole (PRILOSEC) 20 mg capsule Take 1 capsule by mouth once daily. busPIRone (BUSPAR) 7.5 mg tablet Take 1 tablet by mouth at bedtime as needed (INSOMNIA). magnesium oxide 200 mg magnesium tab Take by mouth. Pt takes twice daily cholecalciferol, vitamin D3, 10 mcg (400 unit) cap Take 400 Units by mouth once daily. Pt takes twice daily vitamin B complex (B COMPLEX 1 ORAL) Take by mouth. nystatin-triamcinolone (MYCOLOG II) cream Apply to affected area two times a day. Abdominal fold and groin twice daily x 14 days and as needed after that fluconazole (DIFLUCAN) 150 mg tablet Take 1 tablet by mouth one time only for 1 dose. furosemide (LASIX) 20 mg tablet Take 1 tablet by mouth once daily. No current facility-administered medications for this visit. FAMILY HISTORY Problem Relation Age of Onset Diabetes Mother diet Thyroid Mother Factor 5 Leiden Mother Hypertension Father asthma, DM Diabetes Father on pills Asthma Father COPD Father Cancer Maternal Grandfather lung - smoker Stroke Paternal Grandmother age 84 Social History Tobacco Use Smoking status: Never Smokeless tobacco: Never Substance Use Topics Alcohol use: No Drug use: No REVIEW OF SYSTEMS Constitutional: (-) fatigue Skin: (+) painful rash, (-) pruritus Genitourinary: (+) urinary frequency, (+) nocturia, (+) dysuria, (-) flank pain Musculoskeletal: (-) back pain See HPI EXAM: BP 132/62 (BP Site: Left Arm, BP Position: Sitting, BP Cuff Size: Large Adult) Pulse 66 Temp 36.4 C (97.6 F) Resp 14 Wt 132.5 kg (292 lb) LMP 07/30/2014 SpO2 99% BMI 50.12 kg/m PHYSICAL EXAM: General Appearance: Well appearing, alert, in no acute distress, well-hydrated, well nourished..obese Skin: Skin color is pale, texture, turgor normal. Abdominal fold and groin reddened, excoriated. Lungs: Lungs clear to auscultation. No wheezing, rhonchi, rales.. Heart: RRR without murmur, gallop, or rubs. No ectopy. ASSESSMENT/PLAN: 1. Excoriation of groin, initial encounter - ICD9: 911.8, ICD10: S30.811A (primary diagnosis) - NYSTATIN-TRIAMCINOLONE 100,000 UNIT/G-0.1 % TOPICAL CREAM - FLUCONAZOLE 150 MG TABLET 2. Candidiasis of skin - ICD9: 112.3, ICD10: B37.2 - NYSTATIN-TRIAMCINOLONE 100,000 UNIT/G-0.1 % TOPICAL CREAM - FLUCONAZOLE 150 MG TABLET 3. Dysuria - ICD9: 788.1, ICD10: R30.0 4. Urinary frequency - ICD9: 788.41, ICD10: R35.0 - Patient education for prevention given - UA DIP, URINE (POC)- +small leukocytes - BACTERIAL CULTURE, URINE- sent to lab - HEMOGLOBIN A1C 5. Screening for depression - ICD9: V79.0, ICD10: Z13.31 - DEPRESSION SCREENING 6. Class 3 severe obesity with body mass index (BMI) of 50.0 to 59.9 in adult (HCC) - ICD9: 278.01, V85.43, ICD10: E66.813, Z68.43 Weight increasing To schedule her annual physical and can discuss then, routine labs prior to visit ordered - LIPID PANEL, FASTING - HEMOGLOBIN A1C 7. Anticoagulated on Coumadin - ICD9: V58.61, ICD10: Z79.01 - PROTHROMBIN TIME - COMPLETE BLOOD COUNT AND DIFFERENTIAL - IRON AND TIBC - education provided on s/sx of bleeding 8. Iron deficiency anemia secondary to inadequate dietary iron intake - ICD9: 280.1, ICD10: D50.8 - COMPLETE BLOOD COUNT AND DIFFERENTIAL - IRON AND TIBC 9. Factor V Leiden (HCC) - ICD9: 289.81, ICD10: D68.51 - PROTHROMBIN TIME - COMPLETE BLOOD COUNT AND DIFFERENTIAL - IRON AND TIBC 10. Bilateral leg edema - ICD9: 782.3, ICD10: R60.0 - COMPREHENSIVE METABOLIC PANEL - FUROSEMIDE 20 MG TABLET 11. Dyslipidemia - ICD9: 272.4, ICD10: E78.5 - Counseled on healthy diet and regular exercise - LIPID PANEL, FASTING Discussed treatment plan and patient voices understanding. Patient's questions answered appropriately. Medications and potential side effects were discussed and patient voices understanding. Return to the office as scheduled or as needed for worsening/no improvement. Ursula Mc APRN.[employer]UM[employer] OPERATOR Recording using [employer] software for draft documentation of the visit was discussed with the patient/authorized customer operations representative; all questions welcomed and answered. Patient/authorized customer operations representative agreed to proceed documented in this encounter [facility] 12-17-2024 Instructions Ursula Mc APRN.CNP - 12/17/2024 7:16 AM EDT Get your labs done Saturday , fasting Wash your periarea/groin twice daily soap and water, pat dry, apply the mycolog cream Take one time dose of diflucan documented in this encounter [facility] 11-09-2024 Telephone encounter Note Patient returned call and given provider's message below and patient verbalized understanding. Pt asking if provider would please send another Coumadin 2mg prescription to he pharmacy as pended. Joce Barry RN [facility] 11-09-2024 Miscellaneous Notes Patient returned call and given provider's message below and patient verbalized understanding. Pt asking if provider would please send another Coumadin 2mg prescription to he pharmacy as pended. Joce aBrry RN Left message to return call. ----- Message from Cynthia Jordan APRN.SODA COLUMN OPERATOR sent at 11/09/2024 7:41 AM EDT ----- Please let patient know her INR is 2.4. Patient should continue on current dose. Retest in 4 weeks. Thanks, Cynthia Jordan APRN.SODA [employer]UMN OPERATOR Data from Coumadin Tracker: PT INR 2.4 11/07/2024 PT INR 2.7 05/23/2024 PT INR 3.4 05/09/2024 Goal Range: 2.0-3.0 Last Instructions: Description 4mg Sat -Sat-Sat and 6mg other days documented in this encounter [facility] 11-09-2024 Telephone encounter Note Left message to return call. [facility] 11-09-2024 Telephone encounter Note ----- Message from Cynthia Jordan APRN.SODA COLUMN OPERATOR sent at 11/09/2024 7:41 AM EDT ----- Please let patient know her INR is 2.4. Patient should continue on current dose. Retest in 4 weeks. Thanks, Cynthia Jordan APRN.SODA COLUMN OPERATOR Data from Coumadin Tracker: PT INR 2.4 11/07/2024 PT INR 2.7 05/23/2024 PT INR 3.4 05/09/2024 Goal Range: 2.0-3.0 Last Instructions: Description 4mg Sat -Sat-Sat and 6mg other days [facility] 11-05-2024 Telephone encounter Note PT INR is ordered. Cynthia Jordan APRN.SODA COLUMN OPERATOR [facility] 11-05-2024 Miscellaneous Notes PT INR is ordered. Cynthia Jordan APRN.SODA COLUMN OPERATOR No INR yet completed. Pt may need an INR order in, I do not see an active order. Can we place this? The previous order . Shanta Tinajero MA Pt. informed will stop in and get INR done. Please call and clarify She is overdue for INR recheck Handy Mike DO Prescription Refill Information The patient has been identified by name and date of : Yes Caregiver verified no other encounters exist for this prescription request: Yes Caregiver confirmed with patient/requestor that no other refills are due, in the near future, with this provider at this time: Yes The last office visit in the department: 09/25/2023 Does the patient have a future office visit with this provider/department: Yes Requested Prescriptions Pending Prescriptions Disp Refills warfarin (COUMADIN) 2 mg tablet [Pharmacy Med Name: warfarin 2 mg tablet] 60 tablet 2 Sig: Take 4 mg and 6 mg all other days of the week (patient has 6 mg rx also) Nabila Menard MA November 03, 2024 10:07 AM documented in this encounter [facility] 11-05-2024 Telephone encounter Note No INR yet completed. Pt may need an INR order in, I do not see an active order. Can we place this? The previous order . Shanta Tinajero MA [facility] 11-03-2024 Telephone encounter Note Pt. informed will stop in and get INR done. T [facility] Work Phone: 11-03-2024 Telephone encounter Note Please call and clarify She is overdue for INR recheck Handy Mike DO [facility] 11-03-2024 Telephone encounter Note Prescription Refill Information The patient has been identified by name and date of : Yes Caregiver verified no other encounters exist for this prescription request: Yes Caregiver confirmed with patient/requestor that no other refills are due, in the near future, with this provider at this time: Yes The last office visit in the department: 09/25/2023 Does the patient have a future office visit with this provider/department: Yes Requested Prescriptions Pending Prescriptions Disp Refills warfarin (COUMADIN) 2 mg tablet [Pharmacy Med Name: warfarin 2 mg tablet] 60 tablet 2 Sig: Take 4 mg M-- and 6 mg all other days of the week (patient has 6 mg rx also) Nabila Menard MA November 03, 2024 10:07 AM [facility] 11-03-2024 Note Patient Outreach (FA MPWS) VERO HOLT ([id number]) 1970 F Date Time Provider [facility]03[facility] During your visit today, we recorded the following information about you: Allergies As of Date: 11/03/2024 Noted Allergy Reaction PPMKIBC-QLW-[id number]-ACETAM-CAF 05/21/2008 12 - Shortness of Breath TOPAMAX (TOPIRAMATE) 07/17/2023 14 - Other: See Comments Comments: Vision changes VICODIN (HYDROCODONE-ACETAMINOPHE*01/05 8 - GI Upset Comments: nausea Date Reviewed: 09/25/2023 Reviewed by: Cynthia Jordan APRN.SODA COLUMN OPERATOR - Fully Assessed Visit Diagnosis:Encounter for screening mammogram for breast cancer [Z12.31] Order(s):[facility] SCREENING [facility] [[id number]] Order #: [id number] FUTURE Prescriptions as of 12/04/2024 - warfarin (COUMADIN) 2 mg tablet Take 4 mg -- and 6 mg all other days of the week (patient has 6 mg rx also) - propranolol (INDERAL) 40 mg tablet Take 1 tablet by mouth once daily. - ferrous sulfate (SLOW FE) 140 mg (45 mg iron) TbER Take 1 tablet by mouth two times a day with meals. - FLUoxetine (PROZAC) 40 mg capsule Take 1 capsule by mouth once daily. - FLUoxetine (PROZAC) 20 mg capsule Take 1 capsule by mouth once daily. Take with 40 mg capsule to total 60 mg a day - furosemide (LASIX) 20 mg tablet Take 1 tablet by mouth two times a day. - valACYclovir (VALTREX) 1 gram tablet take 1 tablet by mouth three times a day for 7 days for herpes outbreaks - warfarin (COUMADIN) 6 mg tablet Take 4 mg -- and 6 mg all the other days of the week (patient will have 2 mg rx also) - albuterol HFA (PROAIR HFA) 90 mcg/actuation inhaler Inhale 2 Puffs as instructed every 4 hours as needed for wheezing/shortness of breath. - buPROPion SR (WELLBUTRIN SR) 150 mg 12 hr tablet Take 1 tablet by mouth two times a day. - omeprazole (PRILOSEC) 20 mg capsule Take 1 capsule by mouth once daily. - busPIRone (BUSPAR) 7.5 mg tablet Take 1 tablet by mouth at bedtime as needed (INSOMNIA). - magnesium oxide 200 mg magnesium tab Take by mouth. Pt takes twice daily - cholecalciferol, vitamin D3, 10 mcg (400 unit) cap Take 400 Units by mouth once daily. Pt takes twice daily - vitamin B complex (B COMPLEX 1 ORAL) Take by mouth. Problem List As Of Date 11/03/2024 Noted Resolved Migraine NOS/not Intrcbl [G43.909] Symptomatic Menopausal or Female Climacteric St* 10/14/2014 DVT of Upper Extremity (Deep Vein Thrombosis) [* 10/14/2014 DVT x 2 [I74.9] 05/21/2008 Factor V Leiden heterozygous [D68.9] 06/01/2008 Unspecified Site of Ankle Sprain and Strain [S9*07/30/2008 02/05/2015 Generalized Anxiety Disorder [F41.1] 11/05/2008 Routine general medical examination at [facility]*01/16/2010 07/16/2012 Class: Chronic Routine gynecological examination [Z01.419] [...] lower leg [R60.0] 06/25/2022 Encounter Status:Closed by CAN ALEXANDRA on 12/04/24 [facility] 09-10-2024 Telephone encounter Note Prescription Refill Information The patient has been identified by name and date of : Yes Caregiver verified no other encounters exist for this prescription request: Yes Caregiver confirmed with patient/requestor that no other refills are due, in the near future, with this provider at this time: Yes The last office visit in the department: 09/25/23 Does the patient have a future office visit with this provider/department: No Requested Prescriptions Pending Prescriptions Disp Refills propranolol (INDERAL) 40 mg tablet [Pharmacy Med Name: propranolol 40 mg tablet] 90 tablet 5 Sig: Take 1 tablet by mouth once daily. Shayy Hastings LPN September 10, 2024 3:06 PM [facility] 09-10-2024 Miscellaneous Notes Prescription Refill Information The patient has been identified by name and date of : Yes Caregiver verified no other encounters exist for this prescription request: Yes Caregiver confirmed with patient/requestor that no other refills are due, in the near future, with this provider at this time: Yes The last office visit in the department: 09/25/23 Does the patient have a future office visit with this provider/department: No Requested Prescriptions Pending Prescriptions Disp Refills propranolol (INDERAL) 40 mg tablet [Pharmacy Med Name: propranolol 40 mg tablet] 90 tablet 5 Sig: Take 1 tablet by mouth once daily. Shayy Hastings LPN September 10, 2024 3:06 PM documented in this encounter [facility] 09-10-2024 Telephone encounter Note Prescription Refill Information The patient has been identified by name and date of : Yes Caregiver verified no other encounters exist for this prescription request: Yes Caregiver confirmed with patient/requestor that no other refills are due, in the near future, with this provider at this time: Yes The last office visit in the department: 09/25/23 Does the patient have a future office visit with this provider/department: No Requested Prescriptions Pending Prescriptions Disp Refills ferrous sulfate (SLOW FE) 140 mg (45 mg iron) TbER 60 tablet 5 Sig: Take 1 tablet by mouth two times a day with meals. Shayy Hastings LPN September 10, 2024 1:40 PM [facility] 09-10-2024 Miscellaneous Notes Prescription Refill Information The patient has been identified by name and date of : Yes Caregiver verified no other encounters exist for this prescription request: Yes Caregiver confirmed with patient/requestor that no other refills are due, in the near future, with this provider at this time: Yes The last office visit in the department: 09/25/23 Does the patient have a future office visit with this provider/department: No Requested Prescriptions Pending Prescriptions Disp Refills ferrous sulfate (SLOW FE) 140 mg (45 mg iron) TbER 60 tablet 5 Sig: Take 1 tablet by mouth two times a day with meals. Shayy Hastings LPN September 10, 2024 1:40 PM documented in this encounter [facility] 07-08-2024 Telephone encounter Note Script pended for review. Alejandra Celis MA [facility] 07-08-2024 Miscellaneous Notes Script pended for review. Alejandra Celis MA documented in this encounter [facility] 06-26-2024 Telephone encounter Note Morning, I need some refills on my Lasix and my Prozac it won't let me do it the normal way I just got insurance at the beginning of the year I need these before the end of next week July 03, 2024. Thanks Vero bauer Prescription Refill Information The last office visit in the department: 09/22/2023 Does the patient have a future office visit with this provider/department: No Requested Prescriptions Pending Prescriptions Disp Refills FLUoxetine (PROZAC) 20 mg capsule 90 capsule 3 Sig: Take 1 capsule by mouth once daily. Take with 40 mg capsule to total 60 mg a day furosemide (LASIX) 20 mg tablet 60 tablet 5 Sig: Take 1 tablet by mouth two times a day. Varsha Medina LPN June 26, 2024 9:31 AM [facility] 06-26-2024 Miscellaneous Notes Morning, I need some refills on my Lasix and my Prozac it won't let me do it the normal way I just got insurance at the beginning of the year I need these before the end of next week July 03, 2024. Thanks Vero bauer Prescription Refill Information The last office visit in the department: 09/22/2023 Does the patient have a future office visit with this provider/department: No Requested Prescriptions Pending Prescriptions Disp Refills FLUoxetine (PROZAC) 20 mg capsule 90 capsule 3 Sig: Take 1 capsule by mouth once daily. Take with 40 mg capsule to total 60 mg a day furosemide (LASIX) 20 mg tablet 60 tablet 5 Sig: Take 1 tablet by mouth two times a day. Varsha Medina LPN June 26, 2024 9:31 AM documented in this encounter [facility] 06-26-2024 Telephone encounter Note Refill request created. [facility] 06-26-2024 Miscellaneous Notes Refill request created. documented in this encounter [facility] 05-26-2024 Telephone encounter Note Pt informed Alejandra Celis MA [facility] 05-26-2024 Miscellaneous Notes Pt informed Alejandra Celis MA INR is in good range, no change to Coumadin dose. Recheck in 1 month. Jimmie Carlos APRN.ROS documented in this encounter [facility] 05-26-2024 Telephone encounter Note INR is in good range, no change to Coumadin dose. Recheck in 1 month. Jimmie Carlos APRN.CNP [facility] 05-20-2024 Telephone encounter Note The following approved medication requests have been transmitted electronically. Requested Prescriptions Signed Prescriptions Disp Refills valACYclovir (VALTREX) 1 gram tablet 21 tablet 3 Sig: take 1 tablet by mouth three times a day for 7 days for herpes outbreaks Authorizing Provider: HANDY MIKE DO [facility] 05-20-2024 Miscellaneous Notes The following approved medication requests have been transmitted electronically. Requested Prescriptions Signed Prescriptions Disp Refills valACYclovir (VALTREX) 1 gram tablet 21 tablet 3 Sig: take 1 tablet by mouth three times a day for 7 days for herpes outbreaks Authorizing Provider: HANDY MIKE DO documented in this encounter [facility] 05-13-2024 Telephone encounter Note The following approved medication requests have been transmitted electronically. Requested Prescriptions Signed Prescriptions Disp Refills warfarin (COUMADIN) 6 mg tablet 60 tablet 2 Sig: Take 4 mg M-W-F and 6 mg all the other days of the week (patient will have 2 mg rx also) Authorizing Provider: CYNTHIA JORDAN warfarin (COUMADIN) 2 mg tablet 60 tablet 2 Sig: Take 4 mg M-W-F and 6 mg all other days of the week (patient has 6 mg rx also) Authorizing Provider: CYNTHIA JORDAN APRN.CNP [facility] 05-13-2024 Miscellaneous Notes The following approved medication requests have been transmitted electronically. Requested Prescriptions Signed Prescriptions Disp Refills warfarin (COUMADIN) 6 mg tablet 60 tablet 2 Sig: Take 4 mg M-W-F and 6 mg all the other days of the week (patient will have 2 mg rx also) Authorizing Provider: CYNTHIA JORDAN warfarin (COUMADIN) 2 mg tablet 60 tablet 2 Sig: Take 4 mg M-W-F and 6 mg all other days of the week (patient has 6 mg rx also) Authorizing Provider: CYNTHIA JORDAN APRN.SODA COLUMN OPERATOR Patient returned call and went over coumadin instructions from A [facility] [employer] 4 mg M-W-F and 6 mg all other days of the week and recheck INR in one week with understanding. Tracker updated. Patient only has 6 mg tablets at home asking for new rx for 6 mg and 2 mg please. Pending rx needs amounts and refills completed. Left message to return call. Based on PTT results, pt needs to decrease warfarin dosage to 1 tablet (4mg) on M, W, and F and 6 mg dosage every other day. Repeat PTT in 1 week. Thank you, Cynthia Jordan APRN.SODA COLUMN OPERATOR documented in this encounter [facility] 05-12-2024 Telephone encounter Note Patient returned call and went over coumadin instructions from A Julian [employer] 4 mg M-W-F and 6 mg all other days of the week and recheck INR in one week with understanding. Tracker updated. Patient only has 6 mg tablets at home asking for new rx for 6 mg and 2 mg please. Pending rx needs amounts and refills completed. [facility] 05-11-2024 Telephone encounter Note Left message to return call. [facility] 05-11-2024 Telephone encounter Note Based on PTT results, pt needs to decrease warfarin dosage to 1 tablet (4mg) on M, W, and F and 6 mg dosage every other day. Repeat PTT in 1 week. Thank you, Cynthia Jordna APRN.SODA COLUMN OPERATOR [facility] 04-28-2024 Telephone encounter Note The following approved medication requests have been transmitted electronically. Requested Prescriptions Signed Prescriptions Disp Refills warfarin (COUMADIN) 6 mg tablet 90 tablet 2 Sig: Take 1 tablet by mouth once daily. Take 1 and 1/2 tablets (6mg) by mouth once daily EXCEPT 1 tablet (4mg) SATURDAY Authorizing Provider: JIMMIE CARLOS APRN.CNP [facility] 04-28-2024 Miscellaneous Notes The following approved medication requests have been transmitted electronically. Requested Prescriptions Signed Prescriptions Disp Refills warfarin (COUMADIN) 6 mg tablet 90 tablet 2 Sig: Take 1 tablet by mouth once daily. Take 1 and 1/2 tablets (6mg) by mouth once daily EXCEPT 1 tablet (4mg) SATURDAY Authorizing Provider: JIMMIE CARLOS APRN.CNP documented in this encounter [facility] 10-15-2023 Telephone encounter Note Noted, thank you for the update. Jimmie Carlos APRN.CNP [facility] 10-15-2023 Miscellaneous Notes Noted, thank you for the update. Jimmie Carlos APRN.SODA COLUMN OPERATOR Please see update from patient. Alejandra Celis MA documented in this encounter [facility] 10-15-2023 Telephone encounter Note Please see update from patient. Alejandra Celis MA [facility] 10-03-2023 Telephone encounter Note Please see update from patient Alejandra Celis MA [facility] 10-03-2023 Miscellaneous Notes Please see update from patient Alejandra Celis MA documented in this encounter [facility] 09-26-2023 Miscellaneous Notes September 26, 2023 PID: [id number] Vero Holt [address] [place] [address] Dear Ms. Holt, We are pleased to inform you that the results of your recent breast imaging exam on 09/25/2023 are normal. Early detection of cancer is very important. We also understand recommendations regarding breast cancer screening are controversial. Please discuss with your primary care provider which strategy is best for you and whether a mammogram is right for you. Your imaging studies and report will be kept on file at [facility] as part of your permanent medical record and are available for your continuing care. Thank you for allowing us to help in meeting your health care needs. Sincerely, Dr. Alvarez Interpreting Radiologist [facility] (Normal over 40) documented in this encounter [facility] 09-25-2023 History of Presen t illness Narrative Chief Complaint Patient presents with: feet and ankles swollen and painful: Ever since been home from hospital this has been. States wakes up this way ad has adjustable bed so they are up.ot sure what's causing or what's different. HPI Vero Holt is a 53 year old female who presents here today for Above Complaints. Vero is an established patient of Dr. Mike, DO and myself. Concerns today... Per [facility]: I have been having a lot of foot & ankle swelling ever since I got out of hospital even after I get up in the morning after having my feet elevated during the night. Could I come see you before I loose my Medicaid on October 07? I am [place] concerned I take Lasix. In office currently... Feet/ankle swelling bilaterally -- Ever since hospital admission from -08/09. DVT ruled out at this hospital admission. Hx of factor IV, on warfarin regimen. On lasix 20 mg BID. Recent EKG and ECHO from [facility], cardiology appt last month -- unremarkable and normal. Obese, BMI of 45. No recent weight gain. Only wearing compression stocking occasionally due to so hard to get on -- does notice a difference when she is able to wear these. Not able to get them on now due to so much swelling. 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 Unable to elevated feet at work. Denies any SOB, CP, wheezing, cough, palpitations, or dizziness. No other concerns or complaints. Past medical history, appointments, medications, allergies reviewed. Previous Medical History PAST MEDICAL HISTORY Diagnosis Date DVT of upper extremity (deep vein thrombosis) (HCC) 2004 left upper arm after gallbladder surgery Factor V Leiden mutation (HCC) BEBE (generalized anxiety disorder) Migraine, unspecified, without mention of intractable migraine without mention of status migrainosus Nummular eczema 07/2014 Other acute embolism veins 2007 left leg Symptomatic menopausal or female climacteric states perimenopausal Previous Surgical History PAST SURGICAL HISTORY Procedure Laterality Date DELIVERY ONLY 1996 , low cervical CHOLECYSTECTOMY 2004 Cholecystectomy COLONOSCOPY FLX DX W/COLLJ SPEC WHEN PFRMD 12/03/2019 Colonoscopy ESOPHAGOGASTRODUODENOSCOPY TRANSORAL DIAGNOSTIC 12/03/2019 EGD LIG/TRNSXJ FLP TUBE ABDL/VAG APPR UNI/BI 1996 Family History FAMILY HISTORY Problem Relation Age of Onset Diabetes Mother diet Thyroid Mother Factor 5 Leiden Mother Hypertension Father asthma, DM Diabetes Father on pills Asthma Father COPD Father Cancer Maternal Grandfather lung - smoker Stroke Paternal Grandmother age 84 Patient Allergies ALLERGIES Allergen Reactions Rnhevan-Xvb-Uwtindj* Shortness of Breath Topamax [Topiramate] Other: See Comments Vision changes Vicodin [Hydrocodon* GI Upset nausea Current Medications Current Outpatient Medications on File Prior to Visit Medication Sig FLUoxetine (PROZAC) 40 mg capsule Take 1 capsule by mouth once daily. albuterol HFA (PROAIR HFA) 90 mcg/actuation inhaler Inhale 2 Puffs as instructed every 4 hours as needed for wheezing/shortness of breath. furosemide (LASIX) 20 mg tablet Take 1 tablet by mouth two times a day. ferrous sulfate (SLOW FE) 140 mg (45 mg iron) TbER Take 1 tablet by mouth two times a day with meals. buPROPion SR (WELLBUTRIN SR) 150 mg 12 hr tablet Take 1 tablet by mouth two times a day. propranolol (INDERAL) 40 mg tablet Take 1 tablet by mouth once daily. FLUoxetine (PROZAC) 20 [...] once daily EXCEPT 1 tablet (4mg) SATURDAY magnesium oxide 200 mg magnesium tab Take [...] Topics Alcohol use: No Drug use: No REVIEW OF SYSTEMS: as above Reviewed relevant PMHx, PSHx, Social Hx, current medications and allergies. Review of Symptoms REVIEW OF SYSTEMS See HPI. EXAM: BP 114/70 (BP Site: Left Arm, BP Position: Sitting, BP Cuff Size: Large Adult) Pulse 66 Resp 16 Wt 122.8 kg (270 lb 12.8 oz) LMP 07/30/2014 SpO2 99% BMI 46.48 kg/m General Appearance: Well appearing, alert, in no acute distress, well-hydrated, well nourished.. Skin: Skin color, texture, turgor normal, no suspicious rashes or lesions. Head: Normocephalic, no masses, lesions, tenderness or abnormalities. Lungs: Lungs clear to auscultation. No wheezing, rhonchi, rales.. Heart: RRR without murmur, gallop, or rubs. No ectopy. Extremities: No deformities, skin discoloration, clubbing or cyanosis. Good capillary refill. , Positive findings: 2+ pitting edema. Health Maintenance List Shingrix Vaccine(1 of 2) Never done Pap Testing due on 10/01/2022 HPV Testing due on 10/01/2022 Mammogram Screening due on 02/27/2023 Hepatitis B Vaccine(1 of 3 - 19+ 3-dose series) due on 04/15/2024 Hepatitis C Screening due on 04/15/2024 HIV Screening due on 04/15/2024 Covid-19 Vaccine( season) due on 08/07/2024 Influenza Vaccine(Season Ended) due on 02/09/2024 Diabetes Screening due on 08/23/2026 Lipid Screening due on 10/17/2027 Colorectal Cancer Screening due on 12/02/2029 DTaP,Tdap,Td Vaccine(3 - Td or Tdap) due on 09/13/2032 Behavioral Health Screening Completed ASSESSMENT/PLAN: 1. Bilateral leg edema - ICD9: 782.3, ICD10: R60.0 (primary diagnosis) Lasix burst x 3 days -- 40 mg BID (increase to 2 tablets BID instead of 1 tablet, x 3 days only). Return to prior regimen after this. Lab work as below in 3 days to recheck potassium, electrolytes, and cardiac involvement. Once swelling resolves, discusses need to wear compression stockings daily while at work, elevated feet as much as possible, walking/staying active daily, and weight loss. - NT PRO BNP - COMPREHENSIVE METABOLIC PANEL 2. Factor V Leiden (HCC) - ICD9: 289.81, ICD10: D68.51 Stable, needing refill. - WARFARIN 6 MG TABLET RTO as scheduled, sooner if needed. Prescription instructions reviewed with patient as applicable. Potential red flag symptoms discussed with the patient. Reviewed appropriate action plan to take if red flag symptoms occur. Patient agreeable to treatment plan. Cynthia Huynh APRN.SODA COLUMN OPERATOR [address] [place] [address] documented in this encounter [facility] 09-25-2023 History of Presen t illness Narrative Radiology Service Progress Note PATIENT NAME: Vero Holt DATE OF SERVICE: September 25, 2023 TIME: 7:25 AM PATIENT IDENTITY VERIFICATION COMPLETED USING TWO (2) IDENTIFIERS: Name and Date of confirmed by patient verbally. FALL SCREENING: Has the patient had 2 falls in the last year or 1 fall with injury or currently using an Ambulatory Assistive Device (Walker, Cane, Wheelchair, Crutches, etc.)? No PATIENT GENDER DATA: Female. status: : No status: NO. PATIENT RELEVANT IMPLANT DATA REVIEWED: Not Applicable PATIENT PRESENTS WITH AN IMPLANTABLE OR ATTACHED AIRCRAFT FUELER: No RADIOLOGY DEPARTMENT: Mammography PERIPHERAL IV DATA: Not applicable SIGNED BY: Flakita Walker September 25, 2023 7:25 AM documented in this encounter [facility] 09-16-2023 Miscellaneous Notes Patient has been identified by name and date of : Bitdeli Patient phones for refill(s): Requested Prescriptions Pending Prescriptions Disp Refills FLUoxetine (PROZAC) 40 mg capsule 90 capsule 5 Sig: Take 1 capsule by mouth once daily. Date of last office visit in primary care: 08/14/2023 Date of next office visit in primary care: 10/16/2023 Please advise. Thank you. Erlinda Hankins LPN. documented in this encounter [facility] 08-26-2023 Miscellaneous Notes Spoke with pt gave information provided. Pt voices understanding. Please call patient and let her know that lab work results look good. PT INR is therapeutic. Continue on current regimen and repeat in 2 weeks. Kidney function stable. No concerns. Thank you, Cynthia Jordan APRN.SODA COLUMN OPERATOR documented in this encounter [facility] 08-23-2023 Miscellaneous Notes response of new order, sent to patient. Nicole Barry RN The following approved medication requests have been transmitted electronically. Requested Prescriptions Signed Prescriptions Disp Refills albuterol HFA (PROAIR HFA) 90 mcg/actuation inhaler 18 g 1 Sig: Inhale 2 Puffs as instructed every 4 hours as needed for wheezing/shortness of breath. Jimmie Carlos APRN.ROS See mychart message. Kalina Mcdonald MA documented in this encounter [facility] 08-19-2023 Miscellaneous Notes These were already filled earlier today. documented in this encounter [facility] 08-19-2023 Miscellaneous Notes These were already filled earlier today. documented in this encounter [facility] 08-19-2023 Miscellaneous Notes Patient has been identified by name and date of : Yes, Provider Dr. Mike Date 08/19/23 Time 1:34 Patient phones for refill(s): Requested Prescriptions Pending Prescriptions Disp Refills furosemide (LASIX) 20 mg tablet 60 tablet 5 Sig: Take 1 tablet by mouth two times a day. Date of last office visit in primary care: 08/14/2023 Date of next office visit in primary care: 08/17/2023 Please advise. Thank you. Erlinda Hankins LPN. documented in this encounter [facility] 08-19-2023 Miscellaneous Notes Patient has been identified by name and date of : Yes, Provider Dr. Mike Date 08/19/23 Time 1:33 Patient phones for refill(s): Requested Prescriptions Pending Prescriptions Disp Refills ferrous sulfate (SLOW FE) 140 mg (45 mg iron) TbER 60 tablet 5 Sig: Take 1 tablet by mouth two times a day with meals. Date of last office visit in primary care: 08/14/2023 Date of next office visit in primary care: 10/16/2023 Please advise. Thank you. Erlinda Hankins LPN. documented in this encounter [facility] 08-14-2023 Miscellaneous Notes THis was addressed at appointment. Thank you, Cynthia Jordan APRN.SODA COLUMN OPERATOR Spoke with pt gave information provided. Voices understanding. Asking if she is still continue shot also? Recommend increase dose of warfarin to 6 mg a day and recheck INR 1 week Handy Mike DO Patient returns call and reports no changes in medication. She continues on Coumadin 6 mg all days except Saturday which she takes 4 mg with no missed doses. She is taking Lovenox injections 120mg/0.8mL subq daily as ordered at [facility]. She is taking Levaquin 750 mg daily as ordered at [facility]. Patient reports diet remains poor as reported previously but no changes in food type. Hazel Julien RN Please let her know I received her INR and it is down to 1.6. Has she changed up any medications or anything food-fairchild? I know she doesn't like to change doses, but this is too low. Jimmie Carlos APRN.ROS documented in this encounter [facility] 08-14-2023 History of Presen t illness Narrative Chief Complaint Patient presents with: hospital f/up HPI Vero Holt is a 53 year old female who presents here today for Above Complaints. Vero is an established patient of Dr. Rashid Do and myself. Concerns today.. Admission follow-up -- [facility] admission from 08/08/23 - 08/10/23. Pt was sent to ER from office visit with me on d/t my concern for DVT or PE given recent influenza A dx, stopping her coumadin x 2 weeks d/t n/v, and s/s of hypoxia and SOB. Hx of Factor IV. Per admission: CT was negative for PE but + for bilateral pneumonia. Pulmonary consulted and instructed pulmonary toilet, reinitiation of diuretics, spirometry, and acapella therapy. Tamiflu was given inpatient d/T continued Influenza A + Pt was started on lovenox injections and restart on her warfarin, INR was subtherapeutic during admission so they sent her home on both. Pt was discharged on levaquin, tessalon perles, and lovenox. As well as prior medication regimens. In office today.. Pt reports feeling much improved, SOB and weakness is much better. Still c/o fatigue and cough. Tessalon perles seem to help but she keeps forgetting to take these. Pt called in yesterday about continuing lovenox injections or not. INR on Saturday was 1.7. Warfarin dosage was increased to 6 mg daily and was told to recheck INR on Saturday. Pt was unsure if she needed to continue on lovenox injections or not. She stopped these on her own on Saturday. Pt has not scheduled her follow-up with pulmonology because she would like to get in with [facility] instead of [facility] if able --- per admission note, pulmonology wants 6-[address] scan and PFTs. Needs to get in with pulmonology before this 6 week john paul. Pulse ox has remained > 95 % since discharge. Swelling in bilateral lower extremities remains, she is taking lasix as ordered. Elevated does help per pt. No other concerns or complaints. Needs letter for work excusing/explaining reason being off work. Past medical history, appointments, medications, allergies reviewed. [...] age 82 Patient Allergies ALLERGIES Allergen Reactions Micsqzc-Ffj-Aduviej* Shortness of Breath Topamax [Topiramate] Other: See Comments Vision changes Vicodin [Hydrocodon* GI Upset nausea Current Medications Current Outpatient Medications on File Prior to Visit Medication Sig buPROPion SR (WELLBUTRIN SR) 150 mg 12 hr tablet Take 1 tablet by mouth two times a day. furosemide (LASIX) 20 mg tablet Take 1 [...] Topics Alcohol use: No Drug use: No REVIEW OF SYSTEMS: as above Reviewed relevant PMHx, PSHx, Social Hx, current medications and allergies. Review of Symptoms REVIEW OF SYSTEMS See HPI. EXAM: BP 120/62 (BP Site: Left Arm, BP Position: Sitting, BP Cuff Size: Large Adult) Pulse 79 Temp 36.9 C (98.4 F) Resp 20 Wt 122.6 kg (270 lb 3.2 oz) LMP 07/30/2014 SpO2 97% BMI 46.38 kg/m General Appearance: Well appearing, alert, in no acute distress, well-hydrated, well nourished.. Skin: Skin color, texture, turgor normal, no suspicious rashes or lesions. Head: Normocephalic, no masses, lesions, tenderness or abnormalities. Lungs: Lungs clear to auscultation. No wheezing, rhonchi, rales.. Heart: RRR without murmur, gallop, or rubs. No ectopy. Extremities: No deformities, skin discoloration, clubbing or cyanosis. Good capillary refill. , Positive findings: mild bilateral lower extremity +1 pitting edema. Health Maintenance List Shingrix Vaccine(1 of 2) Never done Pap Testing due on 10/01/2022 HPV Testing due on 10/01/2022 Mammogram Screening due on 02/27/2023 Depression Assessment due on 06/10/2023 Influenza Vaccine(1) due on 12/08/2023 Hepatitis B Vaccine(1 of 3 - 3-dose series) due on 04/15/2024 Hepatitis C Screening due on 04/15/2024 HIV Screening due on 04/15/2024 Covid-19 Vaccine(1) due on 08/07/2024 Diabetes Screening due on 01/26/2026 Lipid Screening due on 10/17/2027 Colorectal Cancer Screening due on 12/02/2029 DTaP,Tdap,Td Vaccine(3 - Td or Tdap) due on 09/13/2032 ASSESSMENT/PLAN: 1. Hospital discharge follow-up - ICD9: V67.59, ICD10: Z09 (primary diagnosis) OK to discontinue lovenox injections as she already has. Increase warfarin as instructed by Dr. Mike yesterday to 6 mg daily, and repeat INR on Saturday. Lab work as below to look at WBC compared to prior in hospital. Continue with antibiotic and tessalon perles as prescribed. Needs to get in with pulmonology for re-evaluation and repeat chest CT and PFTs within 6 weeks. Will try to get her into [facility], if not she will have to go to [facility]. Pt agreeable. - CONSULT TO PULMONARY MEDICINE - CBC + DIFF - COMP METABOLIC PANEL - PROTHROMBIN TIME/PT 2. Bacterial pneumonia - ICD9: 482.9, ICD10: J15.9 See above. - CONSULT TO PULMONARY MEDICINE - CBC + DIFF - COMP METABOLIC PANEL - PROTHROMBIN TIME/PT 3. SOB (shortness of breath) - ICD9: 786.05, ICD10: R06.02 See above. - CONSULT TO PULMONARY MEDICINE RTO as needed. Prescription instructions reviewed with patient as applicable. Potential red flag symptoms discussed with the patient. Reviewed appropriate action plan to take if red flag symptoms occur. Patient agreeable to treatment plan. Cynthia Huynh APRN.[employer] [address] [place] [address] documented in this encounter [facility] 08-12-2023 Miscellaneous Notes Levaquin should treat UTI as well. Will discuss further at follow-up appointment on Saturday. Thank you, Cynthai Jordan APRN.[employer] Called spoke with pt she states is much better. She was admitted came home Saturday late afternoon. Is on generic for Levaquin 750 mg for pneumonia.She also was not registering for inr at hospital so they have her on shots and her medicine. By time she left it was 1.7 did come in for inr draw. Please call patient and see how she is doing. We sent her to ER from office visit and it looks like she got admitted. Please let her know urine culture looks positive for UTI -- please make sure they are addressing this inpatient and she is on antibiotic. Thank you, Cynthia Jordan APRN.[employer] documented in this encounter [facility] 08-10-2023 Discharge summary Note Date/Time August 10, 2023 10:24am [facility] Medical Records Department [address] [place] [address] Discharge Summary 08/10/23 1023 MR#: [id number] Acct: [id number] Name: VERO HOLT Rep #:[id number] : 1970 53 From: Kalina Caicedo DO PCP: Dr. Handy Mike DO Status:AD M IN [facility] Providers Date of Admission: 08/08/23 Date of Discharge: 08/10/23 Primary Care Physician: Dr. Handy Mike DO Consultations 08/08/23 20:43 Consult: [employer] / Pulmonary Medicine Routine Consulting Provider: [employer]/Pulmonary Med Reason for Consult: Pneumonia versus CHF EMERGENT Consult: No MD Notified: Yes Date Notified: 08/08/23 Time Notified: 18:14 Method of Notification: Verbal Reason For Visit: BILATERAL PNEUMONIA, HYPOXIA Diagnosis Discharge Diagnosis (1) Edema of both lower extremities: Status: Acute Code(s): R60.0 - Localized edema (2) Shortness of breath: Status: Acute Code(s): R06.02 - Shortness of breath (3) Hypoxia: Status: Acute Code(s): R09.02 - Hypoxemia (4) Influenza A: Status: Acute Code(s): J10.1 - Influenza due to other identified influenza virus with other respiratorymanifestations Medications at Discharge Home Medications warfarin 4 mg tablet 4 mg PO MO Saturday10/01/17 warfarin 6 mg tablet 6 mg PO SUTUWETHFRSA factor 5 10/01/17 fluoxetine 20 mg capsule 60 mg PO DAILY anxiety 09/05/20 ondansetron 4 mg disintegrating tablet 4 mg PO Q8H PRN PRN Nausea #10 tabs 03/02/21 propranolol 20 mg tablet 40 mg PO DAILY 03/02/21 albuterol sulfate 90 mcg/actuation aerosol inhaler (Ventolin HFA) 2 puff inhalation Q4H PRN PRN Wheezing/SOB #1 device 08/01/23 codeine 10 mg-guaifenesin 100 mg/5 mL oral liquid 5 ml PO 4X/DAY PRN PRN cough 7days #140 mL 08/01/23 ondansetron 4 mg disintegrating tablet 4 mg PO TID PRN nausea and vomiting #21 tabs 08/01/23 ferrous sulfate 140 mg (45 mg iron) tablet,extended release (Slow Release Iron) 140 mg PO DAILY supplement 08/08/23 furosemide 20 mg tablet 20 mg PO DAILY water pill 08/08/23 benzonatate 100 mg capsule 100 mg PO TID PRN cough #21 caps 08/10/23 enoxaparin 120 mg/0.8 mL subcutaneous syringe 120 mg (0.8 mL) subcut Q12@0600,1800 #8 mL 08/10/23 levofloxacin 750 mg tablet 750 mg PO DAILY@0600 #5 tabs 08/10/23 Hospital Course Operations None Procedures EKG and - (Chest x-ray/CTA of the chest) Summary of Care Provided Minutes Spent on Discharge: 38 Hospital Course: Ms Holt is a 53-year-old white female who presented to the emergency department at [facility] on 08/08/2023 at the referral of her primary care physician secondary to oxygen saturation of 89% on room air in the office. The patient had been having some shortness of breath and had recently been diagnosed with influenza approximately 10 to 14 days prior to presentation. She denies any pulmonary issues at baseline and has no history of tobacco abuse. She is morbidly obese. She does take Lasix on a regular basis for lowerextremity edema and reported that she had had nausea and vomiting lately and hadnot been able to take her oral medications including her Lasix and Coumadin. 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 She denied productive cough however complained of a dry cough, denied fevers, chills but did have some nausea and vomiting at that resolved about 24 to 48 hours prior to presentation. She does not wear oxygen at baseline. Vital signson presentation demonstrated temperature of 98.5, respiratory rate was 20, heartrate was 86, blood pressure was 118/59 and oxygen saturation was 91% on room air. Breathing was mildly labored. Her CBC was unremarkable for any acute changes other than a mild anemia with a hemoglobin of 11.7. She had no white count or left shift. Her INR was 1.6. Her chemistry panel was unremarkable with a stable serum creatinine. BNP was performed and only 59 and high-sensitivity troponin was 10. Rapid flu was still positive for influenza A and aGram stain is pending. MRSA PCR was negative at nasal secretion. Rapid COVID was negative. CTA of the chest showed no pulmonary embolism but did show diffuse patchy bilateral airspace disease and groundglass opacities concerning for bilateral pneumonia. Her echocardiogram showed an EF of 60% with no evidence of diastolic dysfunction and no significant valvular abnormalities. Pulmonary pressures were unable to be assessed however they were estimated to benormal. Pulmonary medicine was consulted and recommended ongoing pulmonary toilet, reinitiation of her diuretics and addition of incentive spirometry and Acapella. They did want a repeat CT scan in 6 to 8 weeks to document resolutionof the abnormalities found on admission as well as outpatient PFTs. Mucinex wasadded. Empiric antibiotics were continued at this time. She was also started on Tamiflu given the new flu positive however it is unclear if this is a new infection or just a persistently positive antigen. She did have crackly diffuselung sounds and we did restart her Lasix. She had no further nausea or vomiting. She was also placed on Levaquin for concern of pneumonia with potential aspiration. Given the fact her INR was subtherapeutic on admission at 1.6 she was started on therapeutic enoxaparin and her Coumadin was restarted. At discharge her INR was 1.7. We requested that she continue Lovenox until she has2 consecutively therapeutic INR's and have asked her to have a repeat INR done on 08/12/2023. We did ambulatory pulse ox on the day of discharge as she was satting at 96% on room air. Desaturation was only to 95% with exertion. Will discharge her home with a prescription for Levaquin, Tessalon Perles and enoxaparin as noted above. She was discharged home in stable condition. I haveasked that she call Saturday to set up a follow-up appointment with pulmonary medicine for the next 2 to 4 weeks and follow-up with her primary care physicianwithin the next 2 weeks. Discharge diagnoses: Hypoxia-resolved Positive flu antigen History of VTE Factor V Leiden abnormality Hypokalemia-resolved History of anemia Hypertension History of migraine Anxiety Depression Morbid obesity Physical Exam Const alert, oriented x3, no apparent distress, average body habitus, no limitations, healthy appearing and well nourished Constitutional Narrative: Middle-aged, white female, sitting up in a chair at the bedside watching television and appears comfortable, nontoxic, morbidly obese General Appearance: cooperative, comfortable, well kempt and well developed Orientation / Consciousness: awake, oriented to person, oriented to place and oriented to time Exam Limitations: no limitations Nutritional Appearance: morbidly obese HEENT normocephalic, head/scalp atraumatic, hearing grossly normal bilaterally and moist oral mucous membranes HEENT Narrative: Mallampati 3, no thrush Eyes PERRL, EOMs intact bilaterally and conjunctivae normal Eyes Narrative: No scleral icterus Neck no lymphadenopathy and supple Neck Narrative: Trachea midline, no thyroid enlargement, neck is short and thick Resp normal respiratory effort, no retractions, no use of accessory muscles and clearto auscultation bilaterally Resp Narrative: Crackles are resolved Auscultation: Negative for crackles, rhonchi or wheezes Cardio regular rate, regular rhythm, S1 normal heart sound, S2 normal heart sound, no murmurs, no rub, no gallops and no clicks GI normal to inspection, nondistended, normoactive bowel sounds, soft to palpation and non-tender GI Narrative: Large protuberant abdomen Extremity no clubbing, cyanosis or edema Skin no rashes or lesions noted, no wounds, skin turgor normal and no jaundice Neuro oriented x3, moves all extremities and no focal motor deficits Sensorium / Orientation: awake and alert Speech: speech normal Psych affect normal Psych Narrative: Very pleasant interacts appropriately Weight / BMI Weight Weight: 120.338 kg Body Mass Index (BMI) 47.0 ABG / Lab / Microbiology Data 08/10/23 06:28 08/10/23 06:28 Laboratory: Laboratory Results - last 24 hr 08/10/23 06:28: WBC 3.1 L, RBC 3.68 L, Hgb 11.7 L, Hct 34.8 L, MCV 94.6, MCH 31.8, MCHC 33.6, RDW Std Deviation 44.2 H, RDW Coeff of Delmy 13.0, Plt Count 227,MPV 8.4, Immature Gran % (Auto) 1.300 H, Neut % (Auto) 51.7, Lymph % (Auto) 33.8, Dickenson % (Auto) 10.3 H, Eos % (Auto) 2.6, Baso % (Auto) 0.3, Absolute Neuts (auto) 1.6 L, Absolute Lymphs (auto) 1.05, Nucleated RBC % 0, Sodium 140, Potassium 3.6, Chloride 105, Carbon Dioxide 30.0, Anion Gap 5, BUN 13, Creatinine 1.06 H, Estim Creat Clear Calc 74.03, Est GFR (MDRD) Af Amer 69, Est GFR (MDRD) Non-Af 57 L, BUN/Creatinine Ratio 12.3, Glucose 86, Calcium 8.7 Microbiology: Microbiology 08/09/23 10:30 Sputum, Expectorated/Coughed Respiratory Culture - Preliminary Streptococcus agalactiae (B) 08/08/23 Unknown Mucosa - Nasopharyngeal Respiratory Panel (PCR) - Final Influenza A (Subtype H1) 08/09/23 10:15 Nasal Secretion MRSA (PCR) - Final 08/08/23 18:35 Nasal Secretion SARS-CoV-2 Antigen (Rapid) - Final ABG: ABG 08/09/23 23:15 Specimen Type GILL Sample Site Not entered VBG pH 7.44 H VBG pO2 50 H VBG HCO3 32 H VBG Total CO2 33 VBG O2 Sat (Calc) 86 H VBG Base Excess 8 H POC Mix VBG pCO2 Pt Tmp 46.4 O2 Delivery Device Not entered Radiography Diagnostic Testing: Radiology Impression Echocardiogram 08/08/23 20:43 Interpretation Summary The estimated ejection fraction is 60 %. No evidence for diastolic dysfunction. Ordering Physician: John Paul Trujillo Referring Physician: Handy Mike Performed By: Carolina Armas RDCS, RVT Meaningful Use Info Meaningful Use Diagnoses (Choose all that apply): None applicable Discharge Plan Admission Admit Date/Time: 08/08/23 18:04 Primary Reason for Your Visit: Shortness of breath/hypoxia Attending Provider: Kalina Caicedo Primary Care Provider: Handy Mike Consulting Providers: Pankaj Gutierrez; Ambrosio Snow; Ashu Martel; Tae Daigle; Glenny Mandujano; Benitez Goodman; Astrid Galindo; Martha Dangelo; Josse Ramos; Kalia Perkins; Dada Montes De Oca; Tim Bosch; John Paul Trujillo Instructions Additional Instructions / Restrictions: 1. Your INR was subtherapeutic on admission at 1.6. On discharge it was 1.7 . We are bridging you with enoxaparin until you have 2 consecutive therapeutic INRis at which time we can stop the enoxaparin and just continue your Coumadin. Please have your INR checked on 08/12/2023. 2. Please call on Saturday to schedule a follow-up appointment with pulmonary medicine as noted below. Discharge Orders/Prescriptions Prescriptions: New enoxaparin 120 mg/0.8 mL Syringe 120 mg subcut Q12@0600,1800 Qty: 8 0RF levofloxacin 750 mg Tablet 750 mg PO DAILY@0600 Qty: 5 0RF Continued warfarin 4 mg tablet 4 mg PO MO warfarin 6 mg tablet 6 mg PO SUTUWETHFRSA fluoxetine 20 MG capsule 60 mg PO DAILY propranolol 20 mg Tablet 40 mg PO DAILY ondansetron 4 MG tablet 4 mg PO Q8H PRN PRN (Reason: Nausea) Qty: 10 0RF ondansetron 4 mg tablet,disintegrating 4 mg PO TID PRN (Reason: nausea and vomiting) Qty: 21 0RF albuterol sulfate [Ventolin HFA] 90 mcg/actuation HFA aerosol inhaler 2 puff inhalation Q4H PRN PRN (Reason: Wheezing/SOB) Qty: 1 0RF codeine-guaifenesin 10-100 mg/5 mL liquid 5 ml PO 4X/DAY PRN PRN (Reason: cough) 7 Days Qty: 140 0RF furosemide 20 mg tablet 20 mg PO DAILY Patient Comments: Take 1 tablet by mouth daily. Slow Release Iron 140 mg (45 mg iron) tablet extended release 140 mg PO DAILY Patient Comments: Take 1 tablet by mouth twice daily with meals. benzonatate 100 mg capsule 100 mg PO TID PRN (Reason: cough) Qty: 21 0RF Referrals / Follow Up: Ambrosio Snow MD [Med Staff - Active Staff] - See Referral Note (Call on Saturday to set up an appointment to be seen within the next 2 to 4 weeks) Handy Mike DO [Primary Care Provider] - Within 2 Weeks Disposition Disposition (needs filled in before D/C Order can be placed): Home, Self Care Charges/Coding Visit Charges Inpatient E&M: 87270 Disch Hosp >30min 08/10/23 1128 <Electronically signed by Kalina Caicedo DO> Cosigner Signature (if applicable): CC: Dr. Handy Mike DO; Dr. Kalina Caicedo DO~ Signed [facility] Work Phone: [phone] 935-748503-02-[address] [facility] Medical Records Department [address] [place] [id number] Discharge Summary 08/10/23 1023 MR#: [id number] Acct: [id number] Name: EVRO HOLT Rep #: [id number] : 1970 53 From: Kalina Caicedo DO PCP: Dr. Handy Mike DO Status:DIS IN Location: [place] [id number] Providers Date of Admission: 08/08/23 Date of Discharge: 08/10/23 Primary Care Physician: Dr. Handy Mike DO Consultations 08/08/23 20:43 Consult: [employer] / Pulmonary Medicine Routine Consulting Provider: [employer]/Pulmonary Med Reason for Consult: Pneumonia versus CHF EMERGENT Consult: No MD Notified: Yes Date Notified: 08/08/23 Time Notified: 18:14 Method of Notification: Verbal Reason For Visit: BILATERAL PNEUMONIA, HYPOXIA Diagnosis Discharge Diagnosis (1) Edema of both lower extremities: Status: Acute Code(s): R60.0 - Localized edema (2) Shortness of breath: Status: Acute Code(s): R06.02 - Shortness of breath (3) Hypoxia: Status: Acute Code(s): R09.02 - Hypoxemia (4) Influenza A: Status: Acute Code(s): J10.1 - Influenza due to other identified influenza virus with other respiratory manifestations Medications at Discharge Home Medications warfarin 4 mg tablet 4 mg PO MO Saturday10/01/17 warfarin 6 mg tablet 6 mg PO SUTUWETHFRSA factor 5 10/01/17 fluoxetine 20 mg capsule 60 mg PO DAILY anxiety 09/05/20 ondansetron 4 mg disintegrating tablet 4 mg PO Q8H PRN PRN Nausea #10 tabs 03/02/21 propranolol 20 mg tablet 40 mg PO DAILY 03/02/21 albuterol sulfate 90 mcg/actuation aerosol inhaler (Ventolin HFA) 2 puff inhalation Q4H PRN PRN Wheezing/SOB #1 device 08/01/23 codeine 10 mg-guaifenesin 100 mg/5 mL oral liquid 5 ml PO 4X/DAY PRN PRN cough 7 days #140 mL 08/01/23 ondansetron 4 mg disintegrating tablet 4 mg PO TID PRN nausea and vomiting #21 tabs 08/01/23 ferrous sulfate 140 mg (45 mg iron) tablet,extended release (Slow Release Iron) 140 mg PO DAILY supplement 08/08/23 furosemide 20 mg tablet 20 mg PO DAILY water pill 08/08/23 benzonatate 100 mg capsule 100 mg PO TID PRN cough #21 caps 08/10/23 enoxaparin 120 mg/0.8 mL subcutaneous syringe 120 mg (0.8 mL) subcut Q12@0600,1800 #8 mL 08/10/23 levofloxacin 750 mg tablet 750 mg PO DAILY@0600 #5 tabs 08/10/23 Hospital Course Operations None Procedures EKG and - (Chest x-ray/CTA of the chest) Summary of Care Provided Minutes Spent on Discharge: 38 Hospital Course: Ms Holt is a 53-year-old white female who presented to the emergency department at [facility] on 08/08/2023 at the referral of her primary care physician secondary to oxygen saturation of 89% on room air in the office. The patient had been having some shortness of breath and had recently been diagnosed with influenza approximately 10 to 14 days prior to presentation. She denies any pulmonary issues at baseline and has no history of tobacco abuse. She is morbidly obese. She does take Lasix on a regular basis for lower extremity edema and reported that she had had nausea and vomiting lately and had not been able to take her oral medications including her Lasix and Coumadin. 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 She denied productive cough however complained of a dry cough, denied fevers, chills but did have some nausea and vomiting at that resolved about 24 to 48 hours prior to presentation. She does not wear oxygen at baseline. Vital signs on presentation demonstrated temperature of 98.5, respiratory rate was 20, heart rate was 86, blood pressure was 118/59 and oxygen saturation was 91% on room air. Breathing was mildly labored. Her CBC was unremarkable for any acute changes other than a mild anemia with a hemoglobin of 11.7. She had no white count or left shift. Her INR was 1.6. Her chemistry panel was unremarkable with a stable serum creatinine. BNP was performed and only 59 and high-sensitivity troponin was 10. Rapid flu was still positive for influenza A and a Gram stain is pending. MRSA PCR was negative at nasal secretion. Rapid COVID was negative. CTA of the chest showed no pulmonary embolism but did show diffuse patchy bilateral airspace disease and groundglass opacities concerning for bilateral pneumonia. Her echocardiogram showed an EF of 60% with no evidence of diastolic dysfunction and no significant valvular abnormalities. Pulmonary p ressures were unable to be assessed however they were estimated to be normal. Pulmonary medicine wa s consulted and recommended ongoing pulmonary toilet, reinitiation of her diuretics and addition of incentive spirometry and Acapella. They did want a repeat CT scan in 6 to 8 weeks to document resol ution of the abnormalities found on admission as well as outpatient PFTs. Mucinex was added. Empir ic antibiotics were continued at this time. She was also started on (more content not included)...[facility]03-01-2024 Progress note Author Kalina Caicedo [facility] August 09, 2023 6:34pm Note Date/Time August 09, 2023 6:10 pm [facility] Medical Records Department [address] [place] [address] Progress Note - Hospitalist 08/09/23 1759 MR#: [id number] Acct: [id number] Name: VERO HOLT Rep #:[id number] : 1970 53 From: Kalina Caicedo DO PCP: Dr. Handy Mike, DO Status:AD M IN Location: [facility] [id number]- 1 Reason for Visit Reason for Visit: Shortness of breath/lower extremity edema/hypoxia Subjective Subjective Patient is a 53-year-old female who was sent to the emergency department at [facility] on 08/08/2023 by her primary care physician secondary to oxygen saturation of 89% on room air at the office. The patient had been complaining of some shortness of breath and was recently diagnosed with influenza approximately 10 to 14 days prior to presentation. Patient denies anypulmonary issues at baseline and has no history of tobacco abuse. She is morbidly obese. The patient does take Lasix regularly for lower extremity edemaand states that she has been sick lately and not been able to take her oral medications such as her Lasix and Coumadin. 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 She denied any productive cough, fever, chills but has had a dry cough. Vital signs on presentation demonstrated temperature of 98.5, respiratory rate was 20, heart rate was 86, blood pressure was 118/59 and oxygen saturation was 91% on room air. Breathing was mildly labored. Her CBC was unremarkable for any acute changes other than amild anemia with a hemoglobin of 11.7. She had no white count or left shift. Her INR was 1.6. Her chemistry panel was unremarkable with a stable serum creatinine. BNP was performed and only 59 and high-sensitivity troponin was 10. Rapid flu was still positive for influenza A and a Gram stain is pending. MRSA PCR was negative at nasal secretion. Rapid COVID was negative. CTA of the chest showed no pulmonary embolism but did show diffuse patchy bilateral airspace disease and groundglass opacities concerning for bilateral pneumonia. Her echocardiogram showed an EF of 60% with no evidence of diastolic dysfunctionand no significant valvular abnormalities. Pulmonary pressures were unable to be assessed however they were estimated to be normal. Pulmonary medicine was consulted and recommended ongoing pulmonary toilet, reinitiation of her diuretics and addition of incentive spirometry and Acapella. They did want a repeat CT scan in 6 to 8 weeks to document resolution of the abnormalities foundon admission as well as outpatient PFTs. Mucinex was added. Empiric antibiotics were continued at this time. She was also started on Tamiflu given the new flu positive however it is unclear if this is a new infection or just a persistently positive antigen. Pt feeling 60% better. Had some vomiting up until 2 days ago. Objective Data Objective Data Vital Signs: Vital Signs Temp Pulse Resp BP Pulse Ox O2 Del Method O2 Flow Rate 97.7 F L 80 16 103/57 L 94 Room Air 2 08/09/23 15:54 08/09/23 15:54 08/09/23 15:54 08/09/23 15:54 08/09/23 15:54 08/09/23 16:44 08/09/23 06:52 Oxygen Flow Rate (L/min) 2 Oxygen Delivery Method Room Air Weight: 120.338 kg Body Mass Index (BMI) 47.0 Intake & Output: Intake and Output for Last 24 Hours 08/07/23 08/08/23 08/09/23 23:59 23:59 23:59 Intake Total 1050 / 1050 240 / 240 Balance 1050 / 1050 240 / 240 Lab / Micro Data 08/09/23 07:25 08/09/23 07:25 Labs: Laboratory Results - last 24 hr 08/09/23 07:25: WBC 3.8 L, RBC 3.51 L, Hgb 11.0 L, Hct 32.9 L, MCV 93.7, MCH 31.3, MCHC 33.4, RDW Std Deviation 43.7, RDW Coeff of Delmy 12.9, Plt Count 200, MPV 7.9, Immature Gran % (Auto) 1.800 H, Neut % (Auto) 63.3, Lymph % (Auto) 22.1, Dickenson % (Auto) 10.7 H, Eos % (Auto) 1.6, Baso % (Auto) 0.5, Absolute Neuts (auto) 2.4, Absolute Lymphs (auto) 0.85, Nucleated RBC % 0, Sodium 139, Potassium 3.0 L, Chloride 102, Carbon Dioxide 33.0 H, Anion Gap 4 L, BUN 12, Creatinine 1.06 H, Estim Creat Clear Calc 74.03, Est GFR (MDRD) Af Amer 69, Est GFR (MDRD) Non-Af 57 L, BUN/Creatinine Ratio 11.3, Glucose 96, Calcium 8.3 L Micro: Microbiology 08/08/23 Unknown Mucosa - Nasopharyngeal Respiratory Panel (PCR) - Final Influenza A (Subtype H1) 08/09/23 10:15 Nasal Secretion MRSA (PCR) - Final 08/08/23 18:35 Nasal Secretion SARS-CoV-2 Antigen (Rapid) - Final Radiography Diagnostic Testing: Radiology Impression Echocardiogram 08/08/23 20:43 Interpretation Summary The estimated ejection fraction is 60 %. No evidence for diastolic dysfunction. Ordering Physician: John Paul Trujillo Referring Physician: Handy Mike Performed By: Carolina Armas, LEILA, RVT Physical Exam Const alert, oriented x3, no apparent distress, healthy appearing and well nourished Constitutional Narrative: Middle-aged, white female, sitting up in a chair at the bedside watching television and appears comfortable, nontoxic, morbidly obese HEENT head/scalp atraumatic and moist oral mucous membranes HEENT Narrative: Mallampati 3, no thrush Head and Scalp: normocephalic Resp normal respiratory effort, no retractions, no use of accessory muscles and No clear to auscultation bilaterally Resp Narrative: Diffuse bilateral crackles Auscultation: crackles Cardio regular rate, regular rhythm, S1 normal heart sound, S2 normal heart sound, no murmurs, no rub, no gallops and no clicks GI normal to inspection, nondistended, normoactive bowel sounds, soft to palpation and non-tender GI Narrative: Large protuberant abdomen Extremity no clubbing, cyanosis or edema Neuro oriented x3, moves all extremities and no focal motor deficits Speech: speech normal Psych affect normal Psych Narrative: Very pleasant interacts appropriately Assessment & Plan Assessment/Plan (1) Edema of both lower extremities: (2) Shortness of breath: (3) Hypoxia: (4) Influenza A: PLAN: Plan Hypoxia -Chest CT showed patchy airspace disease bilaterally and no PE -Echocardiogram was normal with an EF of 65% no diastolic dysfunction and anticipated normal pulmonary pressures -Flu swab was positive but unclear if this represents acute infection or persistently positive due to recent infection 10 to 14 days ago -Continue incentive spirometry and Acapella -Continue empiric antibiotics for now as sputum cultures pending -Continue diuretics -As needed aerosols -Continue Tamiflu -Pulmonary medicine has evaluated the patient and appreciate input -Repeat CT in 6 to 8 weeks and obtain outpatient PFTs after discharge History of VTE/factor V Leiden abnormality -INR subtherapeutic -Will bridge with Lovenox subcu until INR is therapeutic x 2 -May need to go home on subcu Lovenox to bridge -Patient has not been taking her Coumadin for about 2 weeks so we will reinitiate Hypokalemia -40 mEq p.o. potassium given -Recheck in a.m. History of anemia -Appears that she has previously been stable -Slight drop on admission however has not been on her diuretics -Continue home iron supplementation Hypertension/migraine -Continue home propranolol Anxiety/depression -continue fluoxetine Morbid obesity -BMI is 47 -Recommend weight loss next-complicates treatment, prognosis, outcomes next- Willneed workup for obstructive sleep apnea DVT prophylaxis -full Lovenox with bridging to Coumadin CODE STATUS Full code Charges/Coding Visit Charges Inpatient E&M: 37944 Subs Hosp L2 08/09/23 1834 <Electronically signed by Kalina Caicedo DO> Cosigner Signature (if applicable): CC: ~ Signed [facility] Work Phone: [phone] 770-617603-01-2024 Consult note Author Ambrosio Snow [facility] August 09, 2023 9:02am Note Date/Time August 09, 2023 9:03 am [facility] Medical Records Department [address] [place] [address] Consultation - [employer] 08/09/23 0849 MR#: [id number] Acct: [id number] Name: VERO HOLT Rep #:[id number] : 1970 53 From: Ambrosio Snow MD PCP: Dr. Handy Mike, Status:AD M IN Location: [place] [id number] Assessment & Plan Assessment/Plan (1) Shortness of breath: (2) Factor V Leiden: (3) Influenza A: PLAN: Plan RECOMMENDATIONS: 1. Encourage incentive spirometer and Acapella 2. Discontinue codeine. Add Mucinex 3. Check nasal MRSA swab 4. Reinitiate diuretics 5. Consider room air ABG and walking oximetry prior to discharge 6. Repeat CT scan in 6 to 8 weeks to document resolution 7. Outpatient complete PFT for evaluation of underlying obstructive lung disease IMPRESSIONS: 1. Acute hypoxic respiratory insufficiency with recent influenza A Patient reportedly was diagnosed with influenza A approximately 2 weeks ago. It is unclear if swab represents a repeat infection or just persistence ofgenetic material. Patient would be at risk for possible subsequent bacterial infection, but does not have a significant fever or leukocytosis at this time. Will obtain a MRSA swab to be sure that vancomycin does not need to be added empirically pending cultures. Will discontinue codeine, add Mucinex, incentive spirometer and Acapella for pulmonary recruitment. Patient will likely require a CT scan in 6 to 8 weeks to document resolution. Patient has been noncompliantwith Coumadin and Lasix therapy, but no PE was noted on CTA of the chest. Wouldrecommend reinitiation of diuretics. Patient does have an elevated bicarbonate,so obesity hypoventilation would be a concern. Could obtain a room air ABG oncepatient is off of supplemental oxygen. Given patient's requirements of oxygen, outpatient workup with a complete PFT would be appropriate to evaluate for possible underlying obstructive lung disease such as asthma, which may lead to increased infiltrates following a viral infection. 2. Factor V Leiden/morbid obesity/poor compliance/depression Complicates care, management, recovery and prognosis. Patient would likely benefit from an outpatient sleep workup. Patient may require lower extremity Dopplers for evaluation of DVT given subtherapeutic INR if lower extremity edema does not improve with diuretics alone. Okay to continue with baseline fluoxetine from my perspective. HPI Consult Data Date of Consult: 08/09/23 HPI Narrative HPI Narrative: VERO HOLT is a 53 F, with past medical history listed below, who presents to [facility] on 08/08/2023 secondary to progressive shortness of breath over the last 2 to 3 days. Patient does have a history of factor V Leiden and multiple DVTs in the past. Patient reportedly has not been taking her Coumadin or Lasix over the last 2 weeks. Patient reportedly had tested positive for influenza A and was having some nausea. Patient had reported some increased lower extremity edema. Patient had also reported some pleuritic type chest pains. Patient went to see her PCP and was encouraged to come to the ED to rule out PE. Patient was noted to be 89% on room air. Patient reports a wet cough, but no fevers, chills, chest or abdominal pain. In the ER, patient was afebrile, but slightly tachypneic at 22 breaths/min. Patient was normotensive and initially was saturating well on room air. Laboratory data showed a white blood cell count of 4.8, hemoglobin of 11.7 and platelets of 237. INR was only 1.6 with a creatinine of 1.04 and a bicarbonate of 32. Glucose was within normal limits. A CTA of the chest showed no PE, but diffuse bilateral groundglass opacities. Patient was given Rocephin and azithromycin and admitted to the hospital for further evaluation. Since being admitted to the hospital, patient has tested positive for influenza A. Patient has been requiring 2 L nasal cannula to maintain saturations. Patient is not reporting any current hemoptysis or sinus congestion. Patient denies any history of previous lung disease. 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 Patient denies any exposure to asbestosor TB. No traumatic or travel history has been reported. Patient does not haveany exposure to birds or bats. Patient does have a puppy, but is never requiredany inhaler for asthma that she is aware of. Patient has not required supplemental oxygen previously. Patient states she has never had a PFT or seen a central office repairer. Review of systems otherwise negative from a constitutional, HEENT, respiratory, cardiovascular, GI, genitourinary, musculoskeletal, skin, neurologic, psychiatric and hematologic system unless stated above. [facility] Medical History Abnormal Pap smear of cervix Anxiety Chest pain DVT (deep venous thrombosis) Factor V deficiency Migraine Non-smoker SOB (shortness of breath) Home Medications warfarin 4 mg tablet 4 mg PO Saturday10/01/17 [History Last Taken Unknown] warfarin 6 mg tablet 6 mg PO SUTUWETHFRSA factor 5 10/01/17 [History Last Taken 08/08/23] fluoxetine 20 mg capsule 60 mg PO DAILY anxiety 09/05/20 [History Last Taken Unknown] ondansetron 4 mg disintegrating tablet 4 mg PO Q8H PRN PRN Nausea #10 tabs 03/02/21 [Rx Last Taken Unknown] propranolol 20 mg tablet 40 mg PO DAILY 03/02/21 [History Last Taken Unknown] benzonatate 100 mg capsule 100 mg PO TID PRN cough #21 caps 05/04/23 [Rx Last Taken Unknown] albuterol sulfate 90 mcg/actuation aerosol inhaler (Ventolin HFA) 2 puff inhalation Q4H PRN PRN Wheezing/SOB #1 device 08/01/23 [Rx Last Taken Unknown] codeine 10 mg-guaifenesin 100 mg/5 mL oral liquid 5 ml PO 4X/DAY PRN PRN cough 7days #140 mL 08/01/23 [Rx Last Taken Unknown] ondansetron 4 mg disintegrating tablet 4 mg PO TID PRN nausea and vomiting #21 tabs 08/01/23 [Rx Last Taken Unknown] ferrous sulfate 140 mg (45 mg iron) tablet,extended release (Slow Release Iron) 140 mg PO DAILY supplement 08/08/23 [History Last Taken Unknown] furosemide 20 mg tablet 20 mg PO DAILY water pill 08/08/23 [History Last Taken Unknown] Allergy/AdvReac Type Severity Reaction Status Date / Time codeine AdvReac Vomiting Verified 08/08/23 14:36 hydrocodone bitartrate AdvReac Pain in Verified 08/08/23 14:36 [From Vicodin] joints Family History Father Diabetes Congestive heart failure Asthma Mother Congestive heart failure Surgical History delivery delivered History of cholecystectomy Social History household members: none Smoking Status: Never smoker alcohol intake: never substance use type: does not use caffeine: Yes what type of physical activity do you participate in: walking seatbelt use: always do you feel safe at home: Yes additional social history: - [employer] ROS ROS Narrative See HPI Physical Exam Const alert, oriented x3 and no apparent distress Constitutional Narrative: Patient is morbidly obese HEENT normocephalic, head/scalp atraumatic, hearing grossly normal bilaterally and moist oral mucous membranes Eyes PERRL, EOMs intact bilaterally and conjunctivae normal Eyes Narrative: Glasses in place Neck supple, no JVD, thyroid normal and no carotid bruits General: trachea midline Resp normal respiratory effort, no retractions and no use of accessory muscles Auscultation: rhonchi right upper and right lower; Negative for rales or wheezes Cardio regular rate, regular rhythm, S1 normal heart sound, S2 normal heart sound, no murmurs, no rub and no gallops GI normal to inspection, nondistended, normoactive bowel sounds, soft to palpation,non-tender and non-distended Extremity General Extremity: edema; Negative for clubbing Skin no rashes or lesions noted General Skin Exam: no breakdown Neuro oriented x3, CN's II-XII intact bilaterally, moves all extremities, no focal motor deficits and no sensory deficits noted Psych cooperative and affect normal Medical Records Data Attestation: I reviewed the patient's medical records Lab / Micro Data Attestation: I reviewed the patient's lab results. Lab results narrative: Patient does have a history of elevated bicarbonate on BMPs. No ABG available for review. 08/09/23 07:25 08/09/23 07:25 Labs: Laboratory Results - last 24 hr 08/08/23 15:50: WBC 4.8, RBC 3.76 L, Hgb 11.7 L, Hct 35.2 L, MCV 93.6, MCH 31.1,MCHC 33.2, RDW Std Deviation 43.6, RDW Coeff of Delmy 12.9, Plt Count 237, MPV 8.4, Immature Gran % (Auto) 1.400 H, Neut % (Auto) 63.3, Lymph % (Auto) 24.6, Dickenson % (Auto) 8.9, Eos % (Auto) 1.4, Baso % (Auto) 0.4, Absolute Neuts (auto) 3.1, Absolute Lymphs (auto) 1.19, Nucleated RBC % 0, PT 18.7 H, INR 1.6, Sodium 139, Potassium 3.5, Chloride 102, Carbon Dioxide 32.0, Anion Gap 5, BUN 15, Creatinine 1.04 H, Estim Creat Clear Calc 76.78, Est GFR (MDRD) Af Amer 71, Est GFR (MDRD) Non-Af 58 L, BUN/Creatinine Ratio 14.4, Glucose 96, Calcium 8.5, Troponin I High Sens 10, B-Natriuretic Peptide 59.7 08/09/23 07:25: WBC 3.8 L, RBC 3.51 L, Hgb 11.0 L, Hct 32.9 L, MCV 93.7, MCH 31.3, MCHC 33.4, RDW Std Deviation 43.7, RDW Coeff of Delmy 12.9, Plt Count 200, MPV 7.9, Immature Gran % (Auto) 1.800 H, Neut % (Auto) 63.3, Lymph % (Auto) 22.1, Dickenson % (Auto) 10.7 H, Eos % (Auto) 1.6, Baso % (Auto) 0.5, Absolute Neuts (auto) 2.4, Absolute Lymphs (auto) 0.85, Nucleated RBC % 0, Sodium 139, Potassium 3.0 L, Chloride 102, Carbon Dioxide 33.0 H, Anion Gap 4 L, BUN 12, Creatinine 1.06 H, Estim Creat Clear Calc 74.03, Est GFR (MDRD) Af Amer 69, Est GFR (MDRD) Non-Af 57 L, BUN/Creatinine Ratio 11.3, Glucose 96, Calcium 8.3 L Micro: Microbiology 08/08/23 Unknown Mucosa - Nasopharyngeal Respiratory Panel (PCR) - Final Influenza A (Subtype H1) 08/08/23 18:35 Nasal Secretion SARS-CoV-2 Antigen (Rapid) - Final Imaging Radiology Impression Chest CTA 08/08/23 15:15 IMPRESSION: 1. No evidence of pulmonary embolus. 2. Diffuse patchy bilateral airspace disease and groundglass opacities which may represent developing bilateral pneumonia. Electronically Signed: Carlos Diaz MD at 16:24 EST , Charges/Coding Visit Charges Inpatient E&M: 71975 Init Hosp L2 08/09/23 0902 <Electronically signed by Ambrosio Snow MD> Cosigner Signature (if applicable): CC: Dr. Pankaj Gutierrez MD; Dr. Ambrosio Snow MD; Dr. Ashu Martel DO; Dr. Tae Daigle MD; Dr. Benitez Goodman MD; Dr. Handy Mike DO; Dr. Astrid Galindo MD; Dr. Martha Dangelo MD; Dr. John Paul Trujillo DO; Dr. Josse Ramos MD; Dr. Kalia Perkins MD; Dr. Dada Montes De Oca MD; Dr. Tim Bosch MD; Dr. Glenny Mandujano MD~ Signed [facility] Work Phone: [phone] Discharge summary Author David Mo [facility] August 08, 2023 9:01pm Note Date/Time August 08, 2023 3:29pm [facility] Medical Records Department [address] [place] [address] Emergency Department Summary 08/08/23 MR#: [id number] Acct: [id number] Name: VERO HOLT Rep #:[id number] : 1970 53 From: David Mo DO PCP: Dr. Hadny Mike DO Status:AD M IN Location: [address] <ROSARIO Miranda - Last Filed: 08/08/23 20:54> History of Present Illness Chief Complaint: Shortness of Breath Narrative Narrative: Patient presenting today due to shortness of breath that has progressively worsened over the past few days. She feels short of breath both at rest and with exertion. 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 She reports that she has been very noncompliant with her medications including Lasix over the past 2 weeks due to currently being sick with influenza A and having nausea. She has had more swelling in her bilateral lower extremities nowthat she is not taking Lasix. She reports that she does have pain to her bilateral rib cage when she takes a deep breath or coughs. She saw her PCP gerson who encouraged her to come to the ED to rule out a PE. Her pulse ox while there was 89% on room air. She denies fevers, chills, chest pain, and abdominal pain. [facility] <ROSARIO Miranda - Last Filed: 08/08/23 20:54> [facility] Medical History Abnormal Pap smear of cervix Anxiety Chest pain Factor V deficiency Migraine SOB (shortness of breath) Home Medications warfarin 4 mg tablet 4 mg PO MO Saturday10/01/17 [History Last Taken Unknown] warfarin 6 mg tablet 6 mg PO SUTUWETHFRSA 10/01/17 [History Last Taken Unknown] fluoxetine 20 mg capsule 50 mg PO DAILY 09/05/20 [History Last Taken Unknown] ondansetron 4 mg disintegrating tablet 4 mg PO Q8H PRN PRN Nausea #10 tabs 03/02/21 [Rx Last Taken Unknown] propranolol 20 mg tablet 40 mg PO DAILY 03/02/21 [History Last Taken Unknown] azithromycin 250 mg tablet See Rx Instructions PO .COMPLEX #6 tabs 05/04/23 [Rx Last Taken Unknown] benzonatate 100 mg capsule 100 mg PO TID PRN cough #21 caps 05/04/23 [Rx Last Taken Unknown] albuterol sulfate 90 mcg/actuation aerosol inhaler (Ventolin HFA) 2 puff inhalation Q4H PRN PRN Wheezing/SOB #1 device 08/01/23 [Rx Last Taken Unknown] codeine 10 mg-guaifenesin 100 mg/5 mL oral liquid 5 ml PO 4X/DAY PRN PRN cough 7days #140 mL 08/01/23 [Rx Last Taken Unknown] ondansetron 4 mg disintegrating tablet 4 mg PO TID PRN nausea and vomiting #21 tabs 08/01/23 [Rx Last Taken Unknown] Allergy/AdvReac Type Severity Reaction Status Date / Time codeine AdvReac Vomiting Verified 08/08/23 14:36 hydrocodone bitartrate AdvReac Pain in Verified 08/08/23 14:36 [From Vicodin] joints Family History Father Diabetes Congestive heart failure Asthma Mother Congestive heart failure Surgical History delivery delivered History of cholecystectomy Social History household members: none Smoking Status: Never smoker alcohol intake: never substance use type: does not use caffeine: Yes what type of physical activity do you participate in: walking seatbelt use: always do you feel safe at home: Yes additional social history: - [employer] ROS <ROSARIO Miranda - Last Filed: 08/08/23 20:54> ROS ED Constitutional Constitutional ED: Denies chills or fever(s) Cardiovascular Cardiovascular: Denies chest pain Respiratory/Chest Respiratory/Chest: Reports cough, dyspnea and dyspnea on exertion Gastrointestinal Gastrointestinal: Denies abdominal pain, nausea or vomiting Musculoskeletal Musculoskeletal: Denies arthralgias or myalgias Integumentary Denies rash Neurologic Neurologic: Denies weakness EXAM <ROSARIO Miranda - Last Filed: 08/08/23 20:54> Physical Exam Const Vital Signs: 08/08/23 14:36 08/08/23 16:26 08/08/23 16:27 Temperature 98.5 F Temperature Source Temporal Pulse Rate 86 73 Respiratory Rate 20 H 22 H Respiratory Effort Blood Pressure 118/59 L 126/63 H Blood Pressure Mean 78 84 Pulse Ox 91 94 92 Oxygen Delivery Method Room Air Room Air Room Air 08/08/23 16:29 08/08/23 16:56 08/08/23 17:45 Temperature 98 F Temperature Source Pulse Rate 78 Respiratory Rate 20 H Respiratory Effort Non-Labored Short of Breath Blood Pressure 121/62 H Blood Pressure Mean 81 Pulse Ox 93 92 Oxygen Delivery Method Room Air Room Air Positive well nourished, well developed and no apparent distress General Appearance ED: well developed HEENT Reports normocephalic and head/scalp atraumatic Mouth ED: Yes moist mucous membranes normal Eyes PERRL and EOMs intact bilaterally Neck full ROM and supple Chest Wall inspection of chest normal Resp normal respiratory effort Resp Narrative: Diffuse crackles in bilateral lung mao. Cardio regular rate and regular rhythm GI soft to palpation, non-tender, non-distended and no masses Back/Spine normal ROM and normal to inspection Extremity full ROM Extremity Narrative: 1+ pitting edema to the bilateral lower extremities. Neuro oriented x3, CN's II-XII intact bilaterally, moves all extremities, no focal motor deficits and no sensory deficits noted Sensorium / Orientation: awake and alert Psych mental status grossly normal and thought process normal Skin no rashes or lesions noted and no wounds <Dr. David Mo DO - Last Filed: 08/08/23 21:01> Physical Exam Const Vital Signs: 08/08/23 14:36 08/08/23 16:26 08/08/23 16:27 Temperature 98.5 F Temperature Source Temporal Pulse Rate 86 73 Respiratory Rate 20 H 22 H Respiratory Effort Blood Pressure 118/59 L 126/63 H Blood Pressure Mean 78 84 Pulse Ox 91 94 92 Oxygen Delivery Method Room Air Room Air Room Air 08/08/23 16:29 08/08/23 16:56 08/08/23 17:45 Temperature 98 F Temperature Source Pulse Rate 78 Respiratory Rate 20 H Respiratory Effort Non-Labored Short of Breath Blood Pressure 121/62 H Blood Pressure Mean 81 Pulse Ox 93 92 Oxygen Delivery Method Room Air Room Air [facility] <ROSARIO Miranda - Last Filed: 08/08/23 20:54> [facility] Narrative Medical decision making narrative: Patient is nontoxic and in no acute distress, she is presenting due to cough andshortness of breath. She has had a cough for about 2 weeks, recently diagnosed with influenza A. The shortness of breath started a few days ago. History of DVT and factor V Ley[place]. Has not been taking her Coumadin or Lasix for 2 weeks. She was hypoxic at her PCPs office at 89% and they were concerned for PE. Given her history of blood clots, CTA will be obtained to rule out PE. Cardiac labs will be obtained including a BNP. Labs overall unremarkable. CTA shows groundglass opacities and possible bilateral pneumonia. There is no PE. She was ambulated and her pulse ox dropped to 84% on room air. Given she is hypoxic, I do think she would benefit from admission to the hospital. She will be given Rocephin and azithromycin. I did speak with the hospitalist, Dr. Trujillo who recommends discontinuing the azithromycin as he is going to change the antibiotics on the floor. He recommended obtaining a COVID and respiratory panel. She will be admitted in stable condition and is comfortable with plan. This patient was seen with a PA/METAL WEIGHER Individually assessed they patient including history and physical. I have reviewed everything on the chart that is availableand agree with the documentation provided by the PA/METAL WEIGHER including discussion about the assessment, treatment plan, discussion, and return precautions. Patient presenting with continued cough, shortness of breath after having influenza. She states she sort of felt better and then got worse again. She does still have a cough but is not having fevers that she knows of. She does not have a thermometer. Differential includes postviral pneumonia, viral pneumonitis, dehydration, anemia, electrolyte normalities, bronchitis, acute coronary syndrome because she is having some chest pain. CHF because she is having slow short edema. She does state that she is chronically on Lasix for lower extremity edema but is not related to heart failure. Her legs have swollen recently but this because she has not been taking her medications. PE is also in the differential as she has not been taking her Coumadin and she has factor V Leiden. Will obtain a CTA of the chest to rule out PE. Lab work ultimately is reassuring with a CBC that shows white blood cell count of 4.8, hemoglobin 11.7, platelets 237 INR nearly therapeutic at 1.6. Creatinine slightly elevated 1.04. GFR 58. High-sensitivity troponin is 10. BNP 59.7. CTA of the chest shows bilateral pneumonia. Patient ambulated in the hallway without oxygen and desats to 84% therefore she will need to be admitted. Patient given Rocephin azithromycin. Lab Data Attestation: I reviewed the patient's lab results. Lab results narrative: H&H 11.7 and 35.2, creatinine 1.04, BNP WNL Labs: Laboratory Results - last 24 hr 08/08/23 15:50 WBC 4.8 RBC 3.76 L Hgb 11.7 L Hct 35.2 L MCV 93.6 MCH 31.1 MCHC 33.2 RDW Std Deviation 43.6 RDW Coeff of Delmy 12.9 Plt Count 237 MPV 8.4 Immature Gran % (Auto) 1.400 H Neut % (Auto) 63.3 Lymph % (Auto) 24.6 Dickenson % (Auto) 8.9 Eos % (Auto) 1.4 Baso % (Auto) 0.4 Absolute Neuts (auto) 3.1 Absolute Lymphs (auto) 1.19 Nucleated RBC % 0 PT 18.7 H INR 1.6 Sodium 139 Potassium 3.5 Chloride 102 Carbon Dioxide 32.0 Anion Gap 5 BUN 15 Creatinine 1.04 H Estim Creat Clear Calc 76.78 Est GFR (MDRD) Af Amer 71 Est GFR (MDRD) Non-Af 58 L BUN/Creatinine Ratio 14.4 Glucose 96 Calcium 8.5 Troponin I High Sens 10 B-Natriuretic Peptide 59.7 Radiography Diagnostic Testing: Clinical Impression(s) from Imaging Studies Chest CTA 08/08/23 15:15 IMPRESSION: 1. No evidence of pulmonary embolus. 2. Diffuse patchy bilateral airspace disease and groundglass opacities which may represent developing bilateral pneumonia. Electronically Signed: Carlos Diaz MD at 16:24 EST , EKG Initial EKG: Comments: 78 bpm, normal sinus rhythm, no ST elevation, reviewed and interpreted by attending ED physician <Dr. David Mo, DO - Last Filed: 08/08/23 21:01> [facility] MDM Narrative Medical decision making narrative: Patient is nontoxic and in no acute distress, she is presenting due to cough andshortness of breath. She has had a cough for about 2 weeks, recently diagnosed with influenza A. The shortness of breath started a few days ago. History of DVT and factor V Leyden. Has not been taking her Coumadin or Lasix for 2 weeks. She was hypoxic at her PCPs office at 89% and they were concerned for PE. Given her history of blood clots, CTA will be obtained to rule out PE. Cardiac labs will be obtained including a BNP. Labs overall unremarkable. CTA shows groundglass opacities and possible bilateral pneumonia. There is no PE. She was ambulated and her pulse ox dropped to 84% on room air. Given she is hypoxic, I do think she would benefit from admission to the hospital. She will be given Rocephin and azithromycin. I did speak with the hospitalist, Dr. Trujillo who recommends discontinuing the azithromycin as he is going to change the antibiotics on the floor. He recommended obtaining a COVID and respiratory panel. She will be admitted in stable condition and is comfortable with plan. This patient was seen with a PA/METAL WEIGHER Individually assessed they patient including history and physical. I have reviewed everything on the chart that is availableand agree with the documentation provided by the PA/METAL WEIGHER including discussion about the assessment, treatment plan, discussion, and return precautions. Patient presenting with continued cough, shortness of breath after having influenza. She states she sort of felt better and then got worse again. She does still have a cough but is not having fevers that she knows of. She does not have a thermometer. Differential includes postviral pneumonia, viral pneumonitis, dehydration, anemia, electrolyte normalities, bronchitis, acute coronary syndrome because she is having some chest pain. CHF because she is having slow short edema. She does state that she is chronically on Lasix for lower extremity edema but is not related to heart failure. Her legs have swollen recently but this because she has not been taking her medications. PE is also in the differential as she has not been taking her Coumadin and she has factor V Leiden. Will obtain a CTA of the chest to rule out PE. Lab work ultimately is reassuring with a CBC that shows white blood cell count of 4.8, hemoglobin 11.7, platelets 237 INR nearly therapeutic at 1.6. Creatinine slightly elevated 1.04. GFR 58. High-sensitivity troponin is 10. BNP 59.7. CTA of the chest shows bilateral pneumonia. Patient ambulated in the hallway without oxygen and desats to 84% therefore she will need to be admitted. Patient will be treated with antibiotics. Rapid COVID was requested by hospitalist and is negative. Impression: 1. Hypoxic respiratory failure 2. Bilateral pneumonia 3. History of influenza a Lab Data Labs: Laboratory Results - last 24 hr 08/08/23 15:50 WBC 4.8 RBC 3.76 L Hgb 11.7 L Hct 35.2 L MCV 93.6 MCH 31.1 MCHC 33.2 RDW Std Deviation 43.6 RDW Coeff of Delmy 12.9 Plt Count 237 MPV 8.4 Immature Gran % (Auto) 1.400 H Neut % (Auto) 63.3 Lymph % (Auto) 24.6 Dickenson % (Auto) 8.9 Eos % (Auto) 1.4 Baso % (Auto) 0.4 Absolute Neuts (auto) 3.1 Absolute Lymphs (auto) 1.19 Nucleated RBC % 0 PT 18.7 H INR 1.6 Sodium 139 Potassium 3.5 Chloride 102 Carbon Dioxide 32.0 Anion Gap 5 BUN 15 Creatinine 1.04 H Estim Creat Clear Calc 76.78 Est GFR (MDRD) Af Amer 71 Est GFR (MDRD) Non-Af 58 L BUN/Creatinine Ratio 14.4 Glucose 96 Calcium 8.5 Troponin I High Sens 10 B-Natriuretic Peptide 59.7 Radiography Diagnostic Testing: Clinical Impression(s) from Imaging Studies Chest CTA 08/08/23 15:15 IMPRESSION: 1. No evidence of pulmonary embolus. 2. Diffuse patchy bilateral airspace disease and groundglass opacities which may represent developing bilateral pneumonia. Electronically Signed: Carlos Diaz MD at 16:24 EST , Discharge Plan Dx/Rx/DC Orders Clinical Impression: Influenza A, Hypoxia, Pneumonia, Shortness of breath, Edema of both lower extremities, Factor V Leiden Disposition Disposition: Acute Care Hospital [facility] Discharge Date/Time: 08/08/23 20:43 What to do if you have Problems For any increased pain, shortness of breath, bleeding, nausea or vomiting, chestpain, or any unexpected problems, contact your Primary Care Provider. Call [facility] ([phone]) or report to the closest Emergency Room. Call 911 if necessary. 08/08/232100 <Electronically signed by David Mo DO> Cosigner Signature (if applicable): 08/08/232053 <Electronically signed by Tri PONCE> CC: Dr. Handy Mike, ~ Signed [facility] Work Phone: 1(415) 431-344502-29-2024 History and physical note Author John Paul [facility] August 08, 2023 8:12pm Note Date/Time August 08, 2023 8:12pm [facility] Medical Records Department [address] [place] [id number] H&P Exam - Hospitalist 08/08/232002 MR#: [id number] Acct: [id number] Name: VERO HOLT Rep #:[id number] : 1970 53 From: John Paul Trujillo DO PCP: Dr. Handy Mike, Status:AD M IN Location: [facility] [id number] HPI - General General Date of Admission: 08/08/23 Date of Service: 08/08/23 Chief Complaint: Shortness of breath, leg edema, low pulse ox HPI Narrative VERO HOLT, is a 53 F who presents to the emergency room at [facility] after being sent in from her PCPs office due to a low pulse ox of 89% on room air. Patient had been complaining of some shortness of breath, she had influenza proximately 10 to 14 days ago. Patient denies any pulmonary issues. Patient takes Lasix usually for lower extremity edema and shestates she has been sick and not able to take some oral medications such as Lasix and Coumadin. 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 Patient denied any productive cough, she denied any chills or fever. Patient complained of a dry cough. Workup in the emergency room included a CBC which showed a normal white blood cell count, hemoglobin was 11.7, patient's chemistry profile was remarkable for creatinine of 1.04, and a CTA of the chest was performed which showed no evidence of pulmonary embolus, there were diffuse patchy bilateral airspace disease and groundglass opacities concerning for pneumonia. Patient's pulse ox on room air was 94%, on ambulation her pulse ox dropped to 84%. At the time of this dictation, patient's COVID antigen, RSV antigen, and respiratory panel are pending. Patient will be admitted to [facility], she will be placed on oral Levaquin, she will be seen in consultation by pulmonary medicine, she will be given 1 dose of IV Lasix due to lower extremity edema. Patient will have an echocardiogram performed due to concerns of possible right-sided heart failure. [facility] Medical History Abnormal Pap smear of cervix Anxiety Chest pain Factor V deficiency Migraine SOB (shortness of breath) Home Medications warfarin 4 mg tablet 4 mg PO Saturday10/01/17 [History Last Taken Unknown] warfarin 6 mg tablet 6 mg PO SUTUWETH10/01/17 [History Last Taken Unknown] fluoxetine 20 mg capsule 50 mg PO DAILY 09/05/20 [History Last Taken Unknown] ondansetron 4 mg disintegrating tablet 4 mg PO Q8H PRN PRN Nausea #10 tabs 03/02/21 [Rx Last Taken Unknown] propranolol 20 mg tablet 40 mg PO DAILY 03/02/21 [History Last Taken Unknown] azithromycin 250 mg tablet See Rx Instructions PO .COMPLEX #6 tabs 05/04/23 [Rx Last Taken Unknown] benzonatate 100 mg capsule 100 mg PO TID PRN cough #21 caps 05/04/23 [Rx Last Taken Unknown] albuterol sulfate 90 mcg/actuation aerosol inhaler (Ventolin HFA) 2 puff inhalation Q4H PRN PRN Wheezing/SOB #1 device 08/01/23 [Rx Last Taken Unknown] codeine 10 mg-guaifenesin 100 mg/5 mL oral liquid 5 ml PO 4X/DAY PRN PRN cough 7days #140 mL 08/01/23 [Rx Last Taken Unknown] ondansetron 4 mg disintegrating tablet 4 mg PO TID PRN nausea and vomiting #21 tabs 08/01/23 [Rx Last Taken Unknown] Allergy/AdvReac Type Severity Reaction Status Date / Time codeine AdvReac Vomiting Verified 08/08/23 14:36 hydrocodone bitartrate AdvReac Pain in Verified 08/08/23 14:36 [From Vicodin] joints Family History Father Diabetes Congestive heart failure Asthma Mother Congestive heart failure Surgical History delivery delivered History of cholecystectomy Social History household members: none Smoking Status: Never smoker alcohol intake: never substance use type: does not use caffeine: Yes what type of physical activity do you participate in: walking seatbelt use: always do you feel safe at home: Yes additional social history: - [employer] ROS Constitutional Constitutional: Denies anorexia, change in weight, chills, fatigue, fever(s), malaise, night sweats or weakness Eyes Eyes: Denies blurry vision, change in vision, discharge from eye(s) or eye pain Cardiovascular Cardiovascular: Reports dyspnea on exertion; Denies chest pain, claudication, edema or palpitations Respiratory/Chest Respiratory/Chest: Reports cough, dyspnea and shortness of breath with exertion;Denies hemoptysis or shortness of breath at rest Gastrointestinal Gastrointestinal: Denies abdominal pain, constipation, diarrhea, hematemesis, hematochezia, melena, nausea or vomiting Genitourinary Genitourinary: Denies dysuria, hematuria, urinary frequency, urinary hesitancy, urinary incontinence or urinary urgency Musculoskeletal Musculoskeletal: Denies back pain, joint pain, joint stiffness, joint swelling, myalgias or neck pain Neurologic Neurologic: Denies abnormal gait, abnormal speech, dizziness, focal weakness, headache(s), loss of vision, numbness, other visual disturbances, paresthesias, syncope or tingling Psychiatric Psychiatric: Denies anxiety, cognitive impairment, depression, irritability, mood swings or suicidal ideation Endocrine Endocrinology: Denies change in body appearance, cold intolerance, excessive sweating, heat intolerance, polydipsia or polyuria Hematologic/Lymphatic Hematologic/Lymphatic: Denies none, anemia, easy bleeding, easy bruising or lymphadenopathy Allergic/Immunologic Allergic/Immunologic: Denies rhinitis, urticaria, eczemia or asthma Vital Signs Vital Signs Vital Signs: 08/08/23 14:36 08/08/23 16:26 08/08/23 16:27 Temperature 98.5 F Temperature Source Temporal Pulse Rate 86 73 Respiratory Rate 20 H 22 H Respiratory Effort Blood Pressure 118/59 L 126/63 H Blood Pressure Mean 78 84 Pulse Ox 91 94 92 Oxygen Delivery Method Room Air Room Air Room Air Oxygen Flow Rate (L/min) 08/08/23 16:29 08/08/23 16:56 08/08/23 17:45 Temperature 98 F Temperature Source Pulse Rate 78 Respiratory Rate 20 H Respiratory Effort Non-Labored Short of Breath Blood Pressure 121/62 H Blood Pressure Mean 81 Pulse Ox 93 92 Oxygen Delivery Method Room Air Room Air Oxygen Flow Rate (L/min) 08/08/23 19:44 08/08/23 19:44 Temperature Temperature Source Pulse Rate 77 Respiratory Rate 21 H Respiratory Effort Blood Pressure 106/51 L Blood Pressure Mean 69 Pulse Ox 87 92 Oxygen Delivery Method Room Air Nasal Cannula Oxygen Flow Rate (L/min) 2 Weight Weight: 120.338 kg Body Mass Index (BMI) 47.0 Physical Exam Const alert, oriented x3, no apparent distress and average body habitus Constitutional Narrative: Patient is morbidly obese General Appearance: cooperative, well kempt and well developed Orientation / Consciousness: awake, oriented to person, oriented to place and oriented to time HEENT normocephalic, head/scalp atraumatic, hearing grossly normal bilaterally and moist oral mucous membranes Eyes PERRL, EOMs intact bilaterally and conjunctivae normal Neck supple, no JVD, thyroid normal and no carotid bruits General: trachea midline Resp normal respiratory effort, no retractions and no use of accessory muscles Resp Narrative: Auscultation of the lungs reveals inspiratory rales scattered over all lung mao, there is no rhonchi or wheezes noted Auscultation: rales diffuse; Negative for rhonchi or wheezes Cardio regular rate, regular rhythm, S1 normal heart sound, S2 normal heart sound, no murmurs, no rub and no gallops GI normal to inspection, nondistended, normoactive bowel sounds, soft to palpation,non-tender and non-distended Extremity Extremity Narrative: Bilateral lower leg edema is noted on examination Skin no rashes or lesions noted General Skin Exam: no breakdown Neuro oriented x3, CN's II-XII intact bilaterally, moves all extremities, no focal motor deficits and no sensory deficits noted Sensorium / Orientation: awake and alert Speech: speech normal Psych affect normal Results Lab / Micro Data 08/08/23 15:50 08/08/23 15:50 Labs: Laboratory Results - last 24 hr 08/08/23 15:50: WBC 4.8, RBC 3.76 L, Hgb 11.7 L, Hct 35.2 L, MCV 93.6, MCH 31.1,MCHC 33.2, RDW Std Deviation 43.6, RDW Coeff of Delmy 12.9, Plt Count 237, MPV 8.4, Immature Gran % (Auto) 1.400 H, Neut % (Auto) 63.3, Lymph % (Auto) 24.6, Dickenson % (Auto) 8.9, Eos % (Auto) 1.4, Baso % (Auto) 0.4, Absolute Neuts (auto) 3.1, Absolute Lymphs (auto) 1.19, Nucleated RBC % 0, PT 18.7 H, INR 1.6, Sodium 139, Potassium 3.5, Chloride 102, Carbon Dioxide 32.0, Anion Gap 5, BUN 15, Creatinine 1.04 H, Estim Creat Clear Calc 76.78, Est GFR (MDRD) Af Amer 71, Est GFR (MDRD) Non-Af 58 L, BUN/Creatinine Ratio 14.4, Glucose 96, Calcium 8.5, Troponin I High Sens 10, B-Natriuretic Peptide 59.7 Micro: Microbiology 08/08/23 18:35 Nasal Secretion SARS-CoV-2 Antigen (Rapid) - Final Imaging Radiology Impression Chest CTA 08/08/23 15:15 IMPRESSION: 1. No evidence of pulmonary embolus. 2. Diffuse patchy bilateral airspace disease and groundglass opacities which may represent developing bilateral pneumonia. Electronically Signed: Carlos Diaz MD at 16:24 EST , Assessment & Plan Assessment/Plan (1) Hypoxia: PLAN: Plan 1. Bilateral pneumonia-probably viral in nature, at the time of this dictation,her COVID antigen test was negative, respiratory panel is pending, patient will be maintained on oral Levaquin, she will be given aerosol treatments and seen inconsultation by pulmonary medicine. Due to concerns of fluid overload I have elected to give her 1 dose of IV Lasix. #2 hypoxia secondary to #1-pulse ox will be monitored #3 factor V Leiden-patient will be placed on subcu Lovenox, she has not been taking her Coumadin on a routine basis, she has been reminded how important it is is to stay compliant with her medications. #4 lower extremity edema-etiology unclear, patient will undergo an echocardiogram to rule out any valvular dysfunction and/or pulmonary hypertension. #5 morbid obesity-complicates care, medical course, recovery, and prognosis #6 poor compliance with medical regimen-complicates care, medical course, recovery, and prognosis Total clinical time spent by myself addressing the patient's medical issues, reviewing all of her data, and collaborating with patient's care team: 75 minutes Charges/Coding Visit Charges Inpatient E&M: 98962 Init Hosp L3 08/08/232011 <Electronically signed by John Paul Trujillo DO> Cosigner Signature (if applicable): CC: Dr. Handy Mike, DO; Dr. John Paul Trujillo DO~ Signed [facility] Work Phone: [phone]) [phone] History of Present illness Narrative* Cynthia Jordan APRN.[employer] - 08/08/2023 1:30 PM EST Chief Complaint Patient presents with: blood in urine, ankles very swollen: States tested positive for flu about week ago has not eaten inpast 3 weeks but applesauce and jello. Hurts to breath and diarrhea HPI Vero Holt is a 53 year old female who presents here today for Above Complaints. Vero is an established patient of Dr. Mike, DO and myself. Concerns today.. No improvement with flu symptoms -- Was seen at [facility] ER visit on 07/31 d/t flu like symptoms and dx with influenza A. CXR showed acute execration of viral reactive airway disease. Pt discharged home in stable condition with zofran and albuterol. Since discharge, pt has been worsening with symptoms of SOB, weakness, n/v, blood in urine, swelling in legs, and no appetite. Pt has not ate anything in about 3 weeks besides apple sauce and jello. Trying to increase fluids but admits this is hard due to constantly vomiting. Pt reports not taking coumadin (or any of her medications) x almost 2 weeks due to the vomiting. She felt there was no reason because she was vomiting meds back up. Did take coumadin today for the first time and was able to keep it down. Pt hx of Factor V Leiden. Pt reports so weak that she has to hold on to /boyfriend to walk and is getting SOB with only a few steps which is very abnormalfor her. Pt reports bilateral legs are swollen x 1 week -- also has been taking her lasix. Blood in urine per pt. Noticed today. Also reports mild dysuria/burning with urination. No other urinary symptoms. No fever/chills. Past medical history, appointments, medications, allergies reviewed. [...] age 82 Patient Allergies ALLERGIES Allergen Reactions [id number]-[id number]* Shortness of Breath Topamax [Topiramate] Other: See Comments Vision changes Vicodin [Hydrocodon* GI Upset nausea Current Medications Current Outpatient Medications on File Prior to Visit Medication Sig buPROPion SR (WELLBUTRIN SR) 150 mg 12 hr tablet Take 1 tablet by mouth two times a day. furosemide (LASIX) 20 mg tablet Take 1 tablet by mouth two times a day. propranolol (INDERAL) 40 mg tablet Take 1 tablet by mouth once daily. FLUoxetine (PROZAC) 40 mg capsule Take 1 capsule by mouth once daily. omeprazole (PRILOSEC) 20 mg capsule Take 1 [...] (B COMPLEX 1 ORAL) Take by mouth. FLUoxetine (PROZAC) 20 mg capsule Take 1 capsule by mouth once daily. Take with 40 mg capsule to total 60 mg a day triamcinolone acetonide (KENALOG) 0.1 % cream Apply 1 application to affected area three times daily. Apply sparingly to area for rash/itching. (Patient not taking: Reported on 08/08/2023) No current facility-administered medications on file prior to visit. Social History Social History Tobacco Use Smoking status: Never Smokeless tobacco: Never Substance Use Topics Alcohol use: No Drug use: No REVIEW OF SYSTEMS: as above Reviewed relevant PMHx, PSHx, Social Hx, current medications and allergies. Review of Symptoms REVIEW OF SYSTEMS See HPI. EXAM: BP 122/64 (BP Site: Left Arm, BP Position: Sitting, BP Cuff Size: Large Adult) Pulse 80 Temp 37.2 C (99 F) Resp 16 Wt 120.3 kg (265 lb 3.2 oz) LMP 07/30/2014 SpO2 90% BMI 45.52 kg/m General Appearance: Well appearing, alert, in no acute distress, well-hydrated, well nourished.. Skin: Skin color, texture, turgor normal, no suspicious rashes or lesions. Head: Normocephalic, no masses, lesions, tenderness or abnormalities. Lungs: Lungs clear to auscultation but diminished throughout. No wheezing, rhonchi, rales. Heart: RRR without murmur, gallop, or rubs. No ectopy. Abdomen: Normal abdominal exam, Abdomen soft, non-tender. Bowel sounds normal. No masses, organomegaly, Negative CVA tenderness. Extremities: bilateral edema, non-pitting. Health Maintenance List Shingrix Vaccine(1 of 2) Never done Pap Testing due on 10/01/2022 HPV Testing due on 10/01/2022 Mammogram Screening due on 02/27/2023 Depression Assessment due on 06/10/2023 Influenza Vaccine(1) due on 12/08/2023 Hepatitis B Vaccine(1 of 3 - 3-dose series) due on 04/15/2024 Hepatitis C Screening due on 04/15/2024 HIV Screening due on 04/15/2024 Covid-19 Vaccine(1) due on 08/07/2024 Diabetes Screening due on 01/26/2026 Lipid Screening due on 10/17/2027 Colorectal Cancer Screening due on 12/02/2029 DTaP,Tdap,Td Vaccine(3 - Td or Tdap) due on 09/13/2032 ASSESSMENT/PLAN: 1. SOB (shortness of breath) - ICD9: 786.05, ICD10: R06.02 (primary diagnosis) Hx of Factor V, has not been taking coumadin x 2 weeks, and current recovery from viral influenza. Big concern for blood clot/PE. Pt send to [facility] ER for evaluation. Pt agreeable and took pt directly there. [facility] ER report called to PA. 2. Generalized weakness - ICD9: 780.79, ICD10: R53.1 See above. UA was extremely saturation and dark, + for bili, protein, nitrates, and trace leuks. Severe dehydration -- instructed patient to push fluids. Concern for LC. Continue to [facility] ER for evaluation. 3. Influenza A - ICD9: 487.1, ICD10: J10.1 Dx > 1 week ago and no recovering. Continue to [facility] ER. See above. 4. Factor V Leiden (HCC) - ICD9: 289.81, ICD10: D68.51 Concern for PE and/or DVT with SOB and leg swelling. See above. Report called to [facility] ER -- pt send to ER from visit. 5. Hematuria, unspecified type - ICD9: 599.70, ICD10: R31.9 No hematuria on UA. Urine is so saturated and dark that pt assumed that it was bloody. Severe dehydration based on UA results -- instructed patient to push fluids. Concern for LC. Continue to [facility] ER for evaluation. See above. - URINE CULTURE - URINALYSIS, WITH MICROSCOPIC 6. Leg swelling - ICD9: 729.81, ICD10: M79.89 See above. Concern for clot. Sent to ER. RTO as needed. Prescription instructions reviewed with patient as applicable. Potential red flag symptoms discussed with the patient. Reviewed appropriate action plan to take if red flag symptoms occur. Patient agreeable to treatment plan. Cynthia Huynh APRN.ROS [address] [place] [address] documented in this encounterAdams County Regional Medical Center02-21-2024 Miscellaneous Notes* Telephone Encounter - Charisse Boudreaux RN - 07/31/2023 2:52 PM EST Protocol recommends see provider within 24 hours. Appt with Jimmie Carlos at 0740 tomorrow morning. Pt is asking for work excuse for this week. Pt states her boyfriend has been sick and went to [facility] thinks on Saturday. She thinks he tested positive for Influenza A. Care plan reviewed with patient. Patient voices understanding. Advised patient that if symptoms get worse to go to ER. Reason for Disposition [1] SEVERE diarrhea (e.g., 7 or more times / day more than normal) AND [2] present > 24 hours (1day) Answer Assessment - Initial Assessment Questions 1. DIARRHEA SEVERITY: Severe has had 10/12 over the last 24 hours. Normally one BM per day. Diarrhea is watery dark brown - NO DIARRHEA (SCALE 0) - MILD (SCALE 1-3): Few loose or mushy BMs; increase of 1-3 stools over normal daily number of stools; mild increase in ostomy output. - MODERATE (SCALE 4-7): Increase of 4-6 stools daily over normal; moderate increase in ostomy output. - SEVERE (SCALE 8-10; OR WORST POSSIBLE): Increase of 7 or more stools daily over normal; moderate increase in ostomy output; incontinence. 2. ONSET: Saturday night or Saturday morning 3. BM CONSISTENCY: watery 4. VOMITING: Had vomiting Saturday and Saturday-threw up 3-5 times. No vomiting today. Last emesis wasprior to 3 pm yesterday 5. ABDOMEN PAIN: denies. States some pain up under her ribs when she coughs 6. ABDOMEN PAIN SEVERITY: n/a - MILD (1-3): doesn't interfere with normal activities, abdomen soft and not tender to touch - MODERATE (4-7): interferes with normal activities or awakens from sleep, abdomen tender to touch - SEVERE (8-10): excruciating pain, doubled over, unable to do any normal activities 7. ORAL INTAKE: Between [employer] [place], Water, and [employer], has probably had four 16 oz bottles. 8. HYDRATION: states slight dry mouth and lips, gets lightheaded and dizzy sometimes when she gets up to walk, unsure of weight loss. Urinating every time she has a diarrhea stool. She thinks her urine is dark in color and going a normal amount. 9. EXPOSURE: denies any travel to a foreign country recently, any exposure to anyone with diarrhea or eating any food that was spoiled. 10. ANTIBIOTIC USE: denies 11. OTHER SYMPTOMS: denies any blood in stool. Fever 100.3 last evening by temporal. +chills, body aches and fatigue. Non productive frequent cough. Denies chest pain, SOB or difficulty breathing although cannot lay flat. 12. : n/a postmenopausal Answer Assessment - Initial Assessment Questions 1. ONSET: Saturday the 2. SEVERITY: moderate to severe 3. SPUTUM: none-feels like she wants to cough up something but nothing comes up 4. HEMOPTYSIS: denies 5. DIFFICULTY BREATHING:denies although cannot lay flat. - MILD: No SOB at rest, mild SOB with walking, speaks normally in sentences, can lie down, no retractions, pulse < 100. - MODERATE: SOB at rest, SOB with minimal exertion and prefers to sit, cannot lie down flat, speaksin phrases, mild retractions, audible wheezing, pulse 100-120. - SEVERE: Very SOB at rest, speaks in single words, struggling to breathe, sitting hunched forward,retractions, pulse > 120 6. FEVER: last evening 100.3 by temporal 7. CARDIAC HISTORY:denies 8. LUNG HISTORY:denies 9. PE RISK FACTORS: Has Factor V Leiden-on Coumadin for that. INR was 2.3 two weeks ago 10. OTHER SYMPTOMS: Denies wheezing, chest pain or SOB. Slight runny nose, vomiting for a couple days, diarrhea, chills, body aches, fatigue 11. : n/a postmenopausal 12. TRAVEL: denies Protocols used: Oyqjammj-IHEJC-NX, Cough - Acute Por-Ytuofyaqxe-GQKNM-AH documented in this encounterAdams County Regional Medical Center02-07-2024 History of Present illness Narrative* Jimmie Carlos APRN.SODA COLUMN OPERATOR - 07/17/2023 12:43 PM EST Chief Complaint Patient presents with: F/U 3 [...] age 82 Patient Allergies ALLERGIES Allergen Reactions Bwbblhb-Uhq-Hqtyvyk* Shortness of Breath Vicodin [Hydrocodon* GI Upset [...] in no acute distress, well-hydrated, well nourished. andMorbidly obese. Lungs: Lungs clear to auscultation. No [...] New standing order placed. - PROTHROMBIN TIME/PT Jimmie Carlos APRN.SODA COLUMN OPERATOR documented in this encounterAdams County Regional Medical Center12-04-2023 Miscellaneous Notes* Telephone Encounter - Leeann Cantu LPN - 05/13/2023 3:17 PM EST Pt. informed she is better other then cough. * Telephone Encounter - Cynthia Jordan APRN.CNP - 05/13/2023 2:15 PM EST Pt able to take tessalon perles now. Continue these, can refill if needing more. Chest x-ray ordered. Per CDC guidelines, pt only needs to quarantine x 5 days if fever free and symptoms improving. Doespt feel she is improving? I have sent her the COVID work excuse note via [employer]. Let me know if this is good enough. Thank you, Cynthia Jordan APRN.SODA COLUMN OPERATOR * Telephone Encounter - Leisa Fuller RN - 05/13/2023 1:59 PM EST Patient calls back and notified of this. Patient has not taken tessalon pearls for cough. Patient was not aware she could take them with Paxlovid. Patient states that she cannot take codeine due to aprevious reaction she had. Patient had to call off work today due to cough. Patient states that work told her that they didn'twant her back if she is coughing. Patient asking if provider can write a work excuse? Patient also asking if provider can place order for chest x ray. Patient states that she has been having issues since beginning of April. Please review and advise, Leisa Fuller RN * Telephone Encounter - Cynthia Jordan APRN.ROS - 05/13/2023 12:42 PM EST Please see if patient is still taking tessalon perles for her cough or if she needs more? If so andstill no relief, I can prescribe cough syrup with codeine in it for bedtime. Otherwise, I recommend rest and increase fluids. Thank you, Cynthia Jordan APRN.SODA COLUMN OPERATOR * Telephone Encounter - Cherie Dejesus LPN - 05/13/2023 9:14 AM EST Pt calling with an update. Pt completed Paxlovid and she is still having symptoms. Pt has cough andcough up mucous and and green in color. [...] pt. Cherie Dejesus LPN documented in this encounterAdams County Regional Medical Center11-30-2023 Miscellaneous Notes* Telephone Encounter - Cherie Dejesus LPN - 05/09/2023 2:49 PM EST Pt called in and reports she was put on Medication for COVID and asking if she could take Advil or Tylenol. Question was asked to Jennifer Mercado CNP and she replied yes to either one. Pt does not have any allergies to Advil or Tylenol. Cherie Dejesus LPN documented in this encounterAdams County Regional Medical Center11-29-2023 Miscellaneous Notes* Telephone Encounter - Dolores Solano LPN - 05/08/2023 4:00 PM EST Patient notified and voiced her understanding. * Telephone Encounter - Cynthia Jordan APRN.CNP - 05/08/2023 2:22 PM EST Yes, however I recommend having INR drawn after completion of this anti-viral. Thank you, Cynthia Jordan APRN.CNP The following approved medication requests have been transmitted electronically. Requested Prescriptions Signed Prescriptions Disp Refills nirmatrelvir tablet 300 mg (150 mg x 2) and ritonavir tablet 100 mg in a dose pack (PAXLOVID) 30 tablet 0 Sig: Administer TWO pink nirmatrelvir 150 mg tablets and ONE white ritonavir 100 mg tablet for a total of three tablets twice daily. Authorizing Provider: CYNTHIA JORDAN APRN.CNP * Telephone Encounter - Natividad Olivarez LPN - 05/08/2023 12:58 PM EST Patient calling no pharmacy in [place] has the Molnupiravir in stock, pharmacist told her [place] [facility] is only pharmacy that has Paxlovid available. Patient asking if she should get that rx? Please advise documented in this encounterAdams County Regional Medical Center11-29-2023 Miscellaneous Notes* Telephone Encounter - Cynthia Jordan APRN.CNP - 05/08/2023 2:18 PM EST Noted. Visit was switched to virtual and completed. Please refer to this visit. Thank you, Cynthia Jordan APRN.SODA COLUMN OPERATOR * Telephone Encounter - Tania Amaya RN - 05/08/2023 11:40 AM EST Pt has appointment today with Cynthia Jordan METAL WEIGHER at 140 pm. Pt saw Jimmie Carlos on 04/15/23 and states she wasn't feeling well back then.She states the cough and congestion started 04/26/23 and she had been taking the OTC cold an flu but the box said to only take for a week. She states she went [facility] on 05/03/23 and they told her she had Bronchitis and gave her an antibiotic and Tessalon Pearls. She reports she is done with the antibiotic and feels worse that before. She received acall from her [facility] [place] [facility] [place] [facility] stating her mother was Covid +, she took a test today and it came back Covid +. I asked if they had tested her at the [facility], and she said they hadn't mentionedit. Pt reports she still has the cough and congestion, nausea, and sore throat. Saturday she started vomiting, she said it is mostly phlegm/bile. Yesterday and today she has been having urgent diarrhea. I'm not sure when first Covid symptoms started. I told Pt to wear a mask to office, and that office would call her back if they wanted to switch her to a VV. documented in this encounterAdams County Regional Medical Center11-29-2023 History of Present illness Narrative* Cynthia Jordan APRN.CNP - 05/08/2023 1:40 PM EST This Team Access Model visit is a phone encounter. It required patient-provider interaction for themedical decision making as documented below. Patient agrees to the visit: Yes Patient Location: [place] CC: Patient presents with: Covid Positive HPI Vero Holt is a 53 year old female who is contacted today for a phone visit. This is an established patient of Dr. Handy Mike DO. Concerns today... Cough/congestion ---- Started with bad sore throat at the beginning of the month. Suspected likely allergies due to no other symptoms. Started taking Claritin with some relief. Then started with cough and congestion last week. Started taking OTC medications without relief. Went to [facility] on Saturday (05/03) and dx with bronchitis. Given z-cricket, tessalone perles and mucinex. Symptoms seemed to be improving until yesterday when pt started with chills, diarrhea, vomiting up yellow sputum, no taste/smell, and return of cough and congestion. Cough is causing rib pain. Mother [place] recently dx COVID + last week and pt goes to visit frequently. Pt took at homeCOVID test yesterday and it was positive. Asking [...] FLP TUBE ABDL/VAG APPR UNI/BI 1996 ALLERGIES Vaitfjj-Zqb-Wluevfh-Acetam-Caf and Vicodin [Hydrocodone-Acetaminophen] MEDICATIONS topiramate (TOPAMAX) 50 [...] guidelines -- letter sent to patient via [employer] about quarantine. Pt aware of red flag [...] in counseling regarding treatment options and medications. Cynthia Jordan APRN.SODA COLUMN OPERATOR Molnupiravir Eligibility and Patient Discussion [facility] Formulary Restriction Criteria: Adult outpatients 18 years [...] whether the patient is based on the firstday of the last menstrual period in individuals [...] patient was also informed of the significant knownbenefits and potential risks of molnupiravir, and the [...] those alternatives. The patient was provided electronically withthe Fact Sheet for Patients, Parents and Caregivers. The patient was also instructed that in addition to the treatment with molnupiravir, he/she should continue to self-isolate and use infection control measures (e.g., wear mask, isolate, social distance, avoid sharing personal items, clean and disinfect high touch surfaces, and frequent handwashing) according to CDC guidelines. The patient stated understanding and gave verbal consent to proceeding with molnupiravir treatment. Cynthia Jordan APRN.CNP May 08, 2023 12:39 PM documented in this encounterAdams County Regional Medical Center11-29-2023 Instructions* Patient Instructions* Cynthia Jordan APRN.CNP - 05/08/2023 12:38 PM EST Fact Sheet for Patients And Caregivers Emergency Use Authorization (EUA) Of LAGEVRIO (molnupiravir) capsules For Coronavirus Disease 2019 (COVID-19) What is the most important information I should know about LAGEVRIO? LAGEVRIO may cause serious side effects, including: LAGEVRIO may cause harm to your unborn baby. It is not known if LAGEVRIO will harm your baby if youtake LAGEVRIO during . LAGEVRIO is not recommended for use in . LAGEVRIO has not been studied in . LAGEVRIO was studied in animals only. When LAGEVRIO was given to animals, LAGEVRIO caused harm to their unborn babies. You and your healthcare provider may decide that you should take LAGEVRIO during if thereare no other COVID-19 treatment options approved or [...] method of control (contraception) consistently and correctly duringtreatment with LAGEVRIO and for 4 days after the last dose of LAGEVRIO. Talk to your healthcare provider about reliable control methods. Before starting treatment with LAGEVRIO your healthcare provider may do a test to see if you are before starting treatment with LAGEVRIO. Tell your healthcare provider right away if you become or think you may be duringtreatment with LAGEVRIO. Registry: There is a registry for individuals who take LAGEVRIO during . The purpose of this program is to collect information about the health of you and your baby. If you are or become during treatment with LAGEVRIO, you are encouraged to reportyour use of LAGEVRIO during to this registry at https://covid-pr.[place].PinMyPet or . For individuals who are sexually active with partners who are able to become : It is not known if LAGEVRIO can affect sperm. While the risk is regarded as low, animal studies to fully assess the potential for LAGEVRIO to affect the babies of males treated with LAGEVRIO have notbeen completed. A reliable method of control (contraception) [...] COVID-19 treatment options approved or authorized by theFDA are not accessible or clinically appropriate. The U.S. Food and Drug Administration (FDA) has issued an Emergency Use Authorization (EUA) to makeLAGEVRIO available during the COVID-19 pandemic (for more details about an EUA please see What is an Emergency Use Authorization? at the end of this document). LAGEVRIO is not an FDA-approved medicine in the [place]. Read this Fact Sheet for information about LAGEVRIO. Talk to your healthcareprovider about your options if you have any questions. It is your choice to take LAGEVRIO. What is COVID-19? COVID-19 is caused by a virus called a coronavirus. You can get COVID-19 through close contact withanother person who has the virus. COVID-19 illnesses have ranged from very lbij-mf-uoaovd, including illness resulting in . While information so far suggests that most COVID-19 illness is mild, serious illness can happen and maycause some of your other medical conditions to [...] use of LAGEVRIO for the treatment of mild- tomoderate COVID-19 in adults under an EUA. For [...] serious illnesses Take any medicines including prescription, wxsj-iou-aldnudh medicines, vitamins, and herbal products. How do [...] NG or OG that is size 12 Hebrew (FR) or larger. If you miss a dose of LAGEVRIO: If it has been less than 10 hours since the missed dose, take it as soon as you remember. If it has been more than 10 hours since the missed dose, skip the missed dose and take your dose atthe next scheduled time. Do not double the [...] tell you what size catheter tip syringe youwill need to take or give a dose of LAGEVRIO. Place the needed supplies on a clean work surface. Follow your healthcare provider s instructions on how to flush the NG or OG feeding tube. Flush theNG or OG feeding tube with 5 mL [...] contents and water well for 3 minutes. Thecapsule contents may not dissolve completely. Remove the [...] any capsule contents left in the container orcatheter tip syringe. Use the same catheter tip syringe to flush the NG or OG feeding tube 2 times with 5 mL of water (10mL total). Rinse the container, lid and catheter tip syringe well with clean water after use. Place on a cleanpaper towel until next use. What are the [...] to treat people with COVID-19. Go to https://www.fda.gov/qppnvawgc-tdxmjjcufiiq-azf-response/rsk-dyevsnpoxeifnrg-bhn- policy-framework/gedlpxzed-xwh-peaukscmqhcku for more information. It is your choice [...] not go away. Report side effects to [employer] at www.fda.gov/medwatch or call 6-407-ROQ-6287 (1677.898.6579). How should I store LAGEVRIO? Store LAGEVRIO capsules at room temperature between 68 F to 77 F (20 C to 25 C). Keep LAGEVRIO and all medicines out of the reach of children. How can I learn more about COVID-19? Ask your healthcare provider. Visit www.cdc.gov/COVID19 Contact your local or state public health department. Call [employer] at (toll free in the [place].) Visit www.Togally.com What Is an Emergency Use Authorization (EUA)? [facility] FDA has made LAGEVRIO available under an emergency access mechanism called an Emergency Use Authorization (EUA) The EUA is supported by a [place] of Health and Human Service ([facility])declaration that circumstances exist to justify emergency use of drugs and biological products during the COVID-19 pandemic. LAGEVRIO for the treatment of adults with a current diagnosis of afkd-ua-frujnfqa COVID-19 who are at high risk for progression to severe COVID- 19, including hospitalization or , and for whom [...] evidence available including data from adequate and well-controlledclinical trials, if available, it is reasonable to [...] no longer be used under the EUA). Eric. for: [employer] [address] For patent information: www.Ezoic/research/patent Copyright [employer] & [employer] [place], [place], [place] and its affiliates. All rights reserved. [id number] Revised: July 2022 documented in this encounterAdams County Regional Medical Center11-27-2023 Miscellaneous Notes* Telephone Encounter - Leeann Cantu LPN - 05/06/2023 4:34 PM EST Pt. informed via My Chart. * Telephone Encounter - Cynthia Jordan APRN.CNP - 05/06/2023 4:20 PM EST This is most likely a z-cricket antibiotic. She should be feeling better not worse with the antibiotic. Please assist in making appointment to assess. Thank you, Cynthia Jordan APRN.SODA COLUMN OPERATOR * Telephone Encounter - Leeann Cantu LPN - 05/06/2023 9:34 AM EST Images from the original note were not included. [facility] My [facility] Rx [facility] Had a sore [...] today is that the medication working? Thanks Vero Holt documented in this encounterAdams County Regional Medical Center11-27-2023 Miscellaneous Notes* Telephone Encounter - Leeann Cantu LPN - 05/06/2023 9:33 AM EST See telephone note documented in this encounterAdams County Regional Medical Center11-06-2023 History of Present illness Narrative* Cary Sanchez RT(R) - 04/15/2023 8:00 AM EST Radiology Service Progress Note PATIENT NAME: Vero Holt DATE OF SERVICE: April 15, 2023 TIME: 8:03 AM PATIENT IDENTITY VERIFICATION COMPLETED USING TWO (2) IDENTIFIERS: Name and Date of confirmedby patient verbally. FALL SCREENING: Has the patient had 2 falls in the last year or 1 fall with injury or currently using an Ambulatory Assistive Device (Walker, Cane, Wheelchair, Crutches, etc.)? No PATIENT GENDER DATA: Female. status: : No status: NO. PATIENT RELEVANT IMPLANT DATA REVIEWED: Yes RADIOLOGY DEPARTMENT: General X-ray: Exam(s) Completed: Lower Extremity X- Ray(s): Knee, AP / Lat / Tunne / Merchant Right and Wt. Bearing PERIPHERAL IV DATA: Not applicable SIGNED BY: RT Larry(R) April 15, 2023 8:03 AM documented in this encounterAdams County Regional Medical Center11-06-2023 History of Present illness Narrative* Jimmie Cralos APRN.CNP - 04/15/2023 6:58 AM EST Chief Complaint Patient presents with: Medication Follow-up: Adipex HPI Vero Holt is a 53 year old female who presents here today for Above Complaints.. Weight 01/16/2023: 270 pounds Weight today 04/15/2023: 271 pounds Today: Diet-nothing specific Exercise-nothing specific Life is crazy. Just had to put [place] [facility] [place]. And having to be there all the [...] age 82 Patient Allergies ALLERGIES Allergen Reactions Magcmis-Aap-Ixwarun* Shortness of Breath Vicodin [Hydrocodon* GI Upset [...] in no acute distress, well-hydrated, well nourished. andMorbidly obese. Lungs: Lungs clear to auscultation. No [...] migraine prophylaxis. - TOPIRAMATE 50 MG TABLET Jimmie Carlos APRN.CNP documented in this encounterAdams County Regional Medical Center08-09-2023 Instructions* Patient Instructions* Jimmie Carlos APRN.CNP - 01/16/2023 4:22 PM EDT Start taking your Prilosec every day and we'll reevaluate at your 3 month appointment. Have your labs drawn. Continue with the daily Adipex/phentermine. Work on getting some exercise. Work on increasing protein in your diet, decreasing carbs. Steroid cream for your back-thin layer 3 times daily. documented in this encounterAdams County Regional Medical Center08-09-2023 History of Present illness Narrative* Jimmie Carlos APRN.CNP - 01/16/2023 4:03 PM EDT Chief Complaint Patient presents with: F/U 3 [...] age 82 Patient Allergies ALLERGIES Allergen Reactions Vatshkh-Dlh-Ndbxnha* Shortness of Breath Vicodin [Hydrocodon* GI Upset [...] in no acute distress, well-hydrated, well nourished. andMorbidly obese. Skin: Rash-dry areas to bilateral upper [...] All prescriptions have been APPROPRIATELY filled. No suspiciousactivity was identified. 01/17/2023 by Jimmie Carlos CNP. ASSESSMENT/PLAN: 1. Irritant contact dermatitis, unspecified [...] Will reassess at appointment in 3 months. Mayconsider moving back to prn at that time. 4. Anticoagulated on Coumadin - ICD9: V58.61, ICD10: Z79.01 - PROTHROMBIN TIME/PT 5. Elevated serum creatinine - ICD9: 790.99, ICD10: R79.89 - COMP METABOLIC PANEL Jimmie Carlos APRN.SODA COLUMN OPERATOR documented in this encounterAdams County Regional Medical Center08-01-2023 Miscellaneous Notes* Telephone Encounter - Kalina Mcdonald Ma - 01/08/2023 10:41 AM EDT Last office visit: 10/16/22 F/u scheduled: 01/16/23 Kalina Mcdonald Ma documented in this encounterAdams County Regional Medical Center05-09-2023 History of Present illness Narrative* Handy Mike, - 10/16/2022 10:12 AM EDT CC: Vero Holt is a 52 year old female who presents to the office for follow up HPI: Clotting disorder, chronic use of warfarin, need for INR recheck, no recent bleeding or bruising. 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 ALLERGIES Allergen Reactions Qdghjug-Qda-Jygsahu* Shortness of Breath Vicodin [Hydrocodon* GI Upset [...] nares without drainage, pharynx without erythema, exudate, lesions,or drainage. Uvula midline. Neck: No LAD, no [...] lipid panel - LIPID PANEL, NONFASTING Handy Mike DO Return if no improvement. Follow up with Handy Mike DO. To ER if develops chest pain, shortness of breath. Discussed risks, benefits, alternatives, and potential side effects of medications. Patient/Guardian expressed understanding and agreed with the plan. See patient instructions. Handy Mike DO [address] [place] [address] documented in this encounterAdams County Regional Medical Center03-10-2023 Miscellaneous Notes* Telephone Encounter - Natividad Arredondobutch CHUNG - 08/17/2022 12:49 PM EST Patient calling asking for rx refills. Pending to be sent to [facility]. I had phoned pharmacy and several still have refills, only two with no refills that is being asked for now. Hadcalled patient back and went over what pharmacy [...] you. Natividad Olivarez LPN documented in this encounterAd[facility]03-10-2023 Miscellaneous Notes* Telephone Encounter - Kait Martinez LPN - 08/17/2022 10:56 AM EST From pharmacy documented in this encounterAdams County [facility] Center02-24-2023 Miscellaneous Notes* Telephone Encounter - Cynthia Jordan APRN.CNP - 08/03/2022 2:29 PM EST TE 07/04 further discussing this. Closing encounter. Cynthia Jordan APRN.ROS documented in this encounterAdams County [facility] Center01-26-2023 Miscellaneous Notes* Telephone Encounter - Erlinda Hankins LPN - 07/05/2022 9:13 AM EST Spoke with pt gave information provided. Pt voices understanding. * Telephone Encounter - Handy Mike DO - 07/04/2022 10:02 PM EST Please inform patient that her RUQ US shows fatty liver disease changes, but is otherwise normal. There is further testing called elastography which is a special test that can be [facility] to determine if this fatty liver has any early changes of cirrhosis as well.Let me know if she is interested. Order placed- can fax where she would like this completed. Handy Mike DO documented in this encounterAdams County [facility] Center01-25-2023 Miscellaneous Notes* Telephone Encounter - Erlinda Hankins LPN - 07/04/2022 4:39 PM EST Spoke with pt she states she did receive message about coumadin dosage,She forgot to return call. * Telephone Encounter - Erlinda Hankins LPN - 06/29/2022 10:31 AM EST Called to clarify pt received message left about coumadin dosage. Got machine was full need to try back in a bit. * Telephone Encounter - Leeann Cantu LPN - 06/26/2022 5:20 PM EST Detailed message left on Vm. She is to call back and verify message. * Telephone Encounter - Handy Mike DO - 06/26/2022 5:17 PM EST Continue same dose of coumadin, recheck INR 4 weeks Handy Mike DO * Telephone Encounter - Carrie Oejda LPN - 06/26/2022 2:42 PM EST Last INR: PT INR 2.8 06/25/2022 Current [...] May for severe uti. Carrie Ojeda LPN * Telephone Encounter - Leeann Cantu LPN - 06/26/2022 2:18 PM EST . documented in this encounterAdams County [facility] Center01-25-2023 History of Present illness Narrative* Regla Hart RDMS - 07/04/2022 10:45 AM EST Radiology Service Progress Note PATIENT NAME: Vero Holt DATE OF SERVICE: July 04, 2022 TIME: 10:54 AM PATIENT IDENTITY VERIFICATION COMPLETED USING TWO (2) IDENTIFIERS: Name and Date of confirmedby patient verbally. FALL SCREENING: Has the patient [...] 04, 2022 10:54 AM documented in this encounterAdams County Regional Medical Center01-19-2023 Miscellaneous Notes* Telephone Encounter - Kinza Altamirano - 06/28/2022 1:03 PM ESTSummary: US PT is scheduled for an ultrasound on 07/04/22 at 10:45 AM. Thanks, DANIELITO Mendes * Telephone Encounter - Alejandra Chen Ma - 06/28/2022 12:35 PM EST Pt informed, verbalized understanding Please assist with scheduling US. Alejandra Chen Ma * Telephone Encounter - Handy Mike DO - 06/27/2022 9:30 PM EST Please inform patient that her recent lab [...] oz or more water a day Handy Mike DO documented in this encounterAdams County Regional Medical Center01-16-2023 History of Present illness Narrative* Handy Mike DO - 06/25/2022 5:18 PM EST CC: Vero Holt is a 52 year [...] medications for this visit. ALLERGIES Allergen Reactions Cvdtcvi-Yvu-Uscsmvl* Shortness of Breath Vicodin [Hydrocodon* GI Upset [...] nares without drainage, pharynx without erythema, exudate, lesions,or drainage. Uvula midline. Neck: No LAD, no [...] - ICD9: 454.8, ICD10: I83.893 stable Handy Mike DO Return if no improvement. Follow up with Handy Mike DO. To ER if develops chest pain, shortness of breath Discussed risks, benefits, alternatives, and potential side effects of medications. Patient/Guardian expressed understanding and agreed with the plan. See patient instructions. Handy Mike DO [address] [place] [address] documented in this encounterAdams County Regional [facility] Center01-03-2023 Miscellaneous Notes* Telephone Encounter - Charisse Munoz LPN - 06/12/2022 1:33 PM EST Patient phones requesting refills as follows: Requested [...] advise. Charisse Munoz LPN documented in this encounterAdams County [facility] Center12-19-2022 Instructions* Patient Instructions* Jimmie Carlos APRN.[employer]A [employer]UMN OPERATOR - 05/28/2022 12:11 PM EST You can take the Azo medication 3 times daily as needed. Can take for 3 days if needed. Take the Cipro twice daily with food. For 5 days. We'll let you know when we get the culture results. Keep pushing fluids. Cranberry juice is good to. documented in this encounterAdams County Regional Medical Center12-19-2022 History of Present illness Narrative* Jimmie Carlos APRN.CNP - 05/28/2022 12:01 PM EST Chief Complaint Patient presents with: UTI: Burning [...] age 82 Patient Allergies ALLERGIES Allergen Reactions Zgwuizc-Ood-Pyktzlo* Shortness of Breath Vicodin [Hydrocodon* GI Upset [...] in no acute distress, well-hydrated, well nourished. andMorbidly obese. Lungs: Lungs clear to auscultation. No [...] CIPROFLOXACIN 250 MG TABLET - URINE CULTURE Jimmie Carlos APRN.SODA COLUMN OPERATOR documented in this encounterAdams County Regional Medical Center09-20-2022 Miscellaneous Notes* Letter - Mammography Coordinator - 02/27/2022 2:57 PM EDT February 27, 2022 PID: [id number] Vero Holt [address] [place] [address] Dear Ms. Holt, We are pleased to inform you that [...] report will be [facility] as part of your permanent medical record and are available for your continuing care. Thank you for allowing us to help in meeting your health care needs. Sincerely, Dr. Gant Interpreting Radiologist [facility] (Normal over 40) documented in this encounterAdams County Regional Medical Center09-20-2022 History of Present illness Narrative* RT Josephine(R) - 02/27/2022 2:00 PM EDT Radiology Service Progress Note PATIENT NAME: Vero Holt DATE OF SERVICE: February 27, 2022 TIME: 2:04 PM PATIENT IDENTITY VERIFICATION COMPLETED USING TWO (2) IDENTIFIERS: Name and Date of confirmedby patient verbally. FALL SCREENING: Has the patient [...] 27, 2022 2:04 PM documented in this encounterAdams County Regional Medical Center09-20-2022 History of Present illness Narrative* RT Radha(R) - 02/27/2022 1:30 PM EDT Radiology Service Progress Note PATIENT NAME: Vero Holt DATE OF SERVICE: February 27, 2022 TIME: 1:23 PM PATIENT IDENTITY VERIFICATION COMPLETED USING TWO (2) IDENTIFIERS: Name and Date of confirmedby patient verbally. FALL SCREENING: Has the patient [...] 27, 2022 1:23 PM documented in this encounterAdams County [facility] Medical Center08-17-2022 History of Present illness Narrative* Handy Mike, DO - 01/24/2022 9:48 PM EDT CC: Vero Holt is a 52 year [...] having hair thinning symptoms which has been increased,no bald spots seen At last appt in [...] history of DVT, taking her coumadin as prescribed,needing INR recheck Dyslipidemia, knows need for weight [...] 2004 left upper arm after gallbladder surgery BBEE (generalized anxiety disorder) Migraine, unspecified, without mention [...] medications for this visit. ALLERGIES Allergen Reactions Chueqss-Hka-Sbugwkx* Shortness of Breath Vicodin [Hydrocodon* GI Upset [...] nares without drainage, pharynx without erythema, exudate, lesions,or drainage. Uvula midline. Neck: No LAD, no [...] PANEL BASIC - COMP METABOLIC PANEL Handy Mike DO Return if no improvement. Follow up with Handy Mike DO. To ER if develops chest pain, shortness of breath Discussed risks, benefits, alternatives, and potential side effects of medications. Patient/Guardian expressed understanding and agreed with the plan. See patient instructions. Handy Mike DO [address] [place] [address] documented in this encounterAdams County Regional Medical Center06-01-2022 Miscellaneous Notes* Telephone Encounter - Cynthia Huynh APRN.CNP - 11/08/2021 4:24 PM EDT The following approved medication requests have been transmitted electronically. Signed Prescriptions Disp Refills warfarin (COUMADIN) 4 mg tablet 45 tablet 11 Sig: Take 1 and 1/2 tablets (6mg) by mouth once daily EXCEPT 1 tablet (4mg) SATURDAY CHAPO: No Cynthia Huynh APRN.CNP documented in this encounterAdams County Regional Medical Center05-18-2022 Miscellaneous Notes* Telephone Encounter - Sergo Graham Ma - 10/25/2021 10:30 AM EDT Refills at pharm. Pt notified. * Telephone Encounter - Andressa Sophie - 10/25/2021 9:34 AM EDT Patient has been identified by name and date of : Yes Pending Prescriptions Disp Refills FLUOXETINE 40 MG CAPSULE 90 capsule 3 Sig: Take 1 capsule by mouth once daily. CHAPO: No RX INSTRUCTIONS: Patient aware RX will be sent to pharmacy. No need to notify patient. Andressa Barrios documented in this encounterAdams County [facility] Medical Center04-29-2022 History of Present illness Narrative* Handy Mike, - 10/06/2021 6:57 AM EDT CC: Vero Holt is a 51 year [...] having hair thinning symptoms which has been increased,no bald spots seen Currently Iron deficiency, feels [...] as needed (INSOMNIA). Allergies: ALLERGIES Allergen Reactions Axmsyyt-Swp-Ljuuhox* Shortness of Breath Vicodin [Hydrocodon* GI Upset [...] stable, Improving with replacement of iron Handy Mike DO To ER if develops chest pain, shortness of breath, or severe worsening of symptoms. Discussed risks, benefits, alternatives, and potential side effects of medications. Patient expressed understanding and agreed with the plan. Handy Mike DO [address] [place] [address] documented in this encounterAdams County Regional Medical Center04-27-2022 Instructions* Patient Instructions* Handy Mike DO - 10/04/2021 4:51 PM EDT Okay to try Buspirone as needed when waking up in the middle of the night Weight loss medications Contrave Or Adipex (phentermine) documented in this encounterAdams County Regional Medical Center04-22-2022 Miscellaneous Notes* Telephone Encounter - Handy Mike DO - 09/29/2021 5:11 PM EDT The following approved medication requests have been transmitted electronically. Signed Prescriptions Disp Refills warfarin (COUMADIN) 4 mg tablet 45 tablet 0 Sig: Take 1 and 1/2 tablets (6mg) by mouth once daily EXCEPT 1 tablet (4mg) SATURDAY CHAPO: No Authorizing Provider: HANDY MIKE DO * Telephone Encounter - Alejandra Chen Ma - 09/29/2021 5:08 PM EDT Pt notified via [employer] message of providers instructions. Please send refill to patients pharmacy.rx pended. Alejandra Chen Ma * Telephone Encounter - Handy Mike DO - 09/29/2021 5:02 PM EDT Continue same dose coumadin, recheck INR 4 weeks Handy Mike DO * Telephone Encounter - Shanta Tinajero Ma - 09/29/2021 2:43 PM EDT Last INR: PT INR 2.0 09/28/2021 Current dose of coumadin is: 6 mg daily, except 4 mg on Saturday ( I believe is the dosage). Last date of dose change: . Previous INR (date and result): 2.9 on 06/29/21 Additional Clinical Information or narrative: yes: Pt not checking INR routinely. Currently a [email or web address] message in about refill, we were awaiting her results. Shanta Tinajero Ma documented in this encounterAdams County Regional Medical Center04-22-2022 Miscellaneous Notes* Telephone Encounter - Shanta Tinajero Ma - 09/29/2021 2:45 PM EDT Cheryl - I started an anticoagulation encounter as pt had her INR done today. Close this encounter once completed and advise in anticoagulation encounter. Shanta Tinajero Ma * Telephone Encounter - Jimmie Carlos APRN.CNP - 09/28/2021 9:54 AM EDT INR order placed. I can send her rx refills once I receive this result. Jimmie Carlos APRN.CNP * Telephone Encounter - Alejandra Chen Ma - 09/28/2021 9:49 AM EDT Please see pt reply * Telephone Encounter - Jimmie Carlos APRN.CNP - 09/28/2021 8:40 AM EDT It looks like she hasn't had an [...] pharmacy has time to fill the rx. Jimmie Carlos APRN.CNP * Telephone Encounter - Shanta Tinajero Ma - 09/28/2021 8:29 AM EDT Last OV: 07/05/21 Next OV: 10/04/21 Last Rx: 08/07/21 #45 w/0. Last INR 06/29/21. Pt overdue for INR. documented in this encounterAdams County [facility] Center05-02-2011 History of Past illness Narrative* Problem Noted [...] of this encounter (statuses as of 09/29/2021) [facility] of [facility] Narrative* Problem Noted [...] of this encounter (statuses as of 10/02/2021) [facility] of [facility] illness Narrative* Problem Noted [...] of this encounter (statuses as of 10/06/2021) [facility] of [facility] illness Narrative* Problem Noted [...] of this encounter (statuses as of 10/25/2021) [facility] of [facility] illness Narrative* Problem Noted [...] of this encounter (statuses as of 11/08/2021) [facility] of [facility] illness Narrative* Problem Noted [...] of this encounter (statuses as of 01/03/2022) [facility] Narrative* Problem Noted [...] of this encounter (statuses as of 01/15/2022) [facility] of [facility] illness Narrative* Problem Noted [...] of this encounter (statuses as of 01/25/2022) [facility] of [facility] illness Narrative* Problem Noted [...] of this encounter (statuses as of 02/28/2022) [facility] Narrative* Problem Noted [...] of this encounter (statuses as of 02/28/2022) [facility] Narrative* Problem Noted [...] of this encounter (statuses as of 03/01/2022) [facility] Narrative* Problem Noted [...] of this encounter (statuses as of 05/28/2022) [facility] Narrative* Problem Noted [...] of this encounter (statuses as of 06/15/2022) [facility] Narrative* Problem Noted [...] of this encounter (statuses as of 06/26/2022) [facility] Narrative* Problem Noted [...] of this encounter (statuses as of 07/04/2022) [facility] Narrative* Problem Noted [...] of this encounter (statuses as of 07/05/2022) [facility] Narrative* Problem Noted [...] of this encounter (statuses as of 08/03/2022) [facility] Narrative* Problem Noted [...] of this encounter (statuses as of 08/14/2022) [facility] Narrative* Problem Noted [...] of this encounter (statuses as of 08/17/2022) [facility] Narrative* Problem Noted [...] of this encounter (statuses as of 08/17/2022) [facility] Narrative* Problem Noted Date Resolved Date Osteoporosis 10/09/2010 07/16/2012 Routine general medical exam ination at a health care facility 01/16/2010 07/16/2012 Overview: 01/16/2010, from Dr. Burgos Routine gynecological examination 01/16/2010 07/16/2012 Unspecified Site of Ankle Sprain and Strain /02/05/2015 Symptomatic Menopausal or Female Climacteric [place] 10/14/2014 Overview: perimenopausal DVT of Upper Extremity (Deep Vein Thrombosis) 10/14/2014 Overview: left upper arm after gallbladder surgery documented as of this encounter (statuses as of 08/18/2022) [facility] Narrative* Problem Noted [...] of this encounter (statuses as of 10/16/2022) [facility] Narrative* Problem Noted [...] of this encounter (statuses as of 12/13/2022) [facility] Narrative* Problem Noted [...] of this encounter (statuses as of 01/09/2023) [facility] Narr[facility]* Problem Noted [...] of this encounter (statuses as of 01/17/2023) [facility] Narrative* Problem Noted [...] of this encounter (statuses as of 04/08/2023) [facility] Narrative* Problem Noted [...] of this encounter (statuses as of 04/14/2023) [facility] Narrative* Problem Noted [...] of this encounter (statuses as of 04/16/2023) [facility] N[facility]* Problem Noted [...] of this encounter (statuses as of 05/06/2023) [facility]* Problem Noted [...] of this encounter (statuses as of 05/07/2023) [facility] N[facility]* Problem Noted [...] of this encounter (statuses as of 05/08/2023) [facility] N[facility]* Problem Noted [...] of this encounter (statuses as of 05/08/2023) [facility]* Problem Noted [...] of this encounter (statuses as of 05/09/2023) [facility]* Problem Noted [...] of this encounter (statuses as of 05/14/2023) [facility]* Problem Noted [...] of this encounter (statuses as of 05/14/2023) [facility]* Problem Noted [...] of this encounter (statuses as of 07/18/2023) [facility]* Problem Noted [...] as of this encounter (statuses as of 07/31/2023) [facility]* Problem Noted [...] as of this encounter (statuses as of 08/09/2023) [facility]* Problem Noted [...] as of this encounter (statuses as of 08/12/2023) [facility]* Problem Noted [...] as of this encounter (statuses as of 08/14/2023) [facility]* Problem Noted [...] as of this encounter (statuses as of 08/14/2023) [facility]* Problem Noted [...] as of this encounter (statuses as of 08/19/2023) [facility]* Problem Noted [...] as of this encounter (statuses as of 08/19/2023) [facility]* Problem Noted [...] as of this encounter (statuses as of 08/19/2023) [facility]* Problem Noted [...] as of this encounter (statuses as of 08/19/2023) [facility]* Problem Noted [...] as of this encounter (statuses as of 08/23/2023) [facility]* Problem Noted [...] as of this encounter (statuses as of 08/26/2023) [facility]* Problem Noted [...] as of this encounter (statuses as of 09/16/2023) [facility]* Problem Noted [...] as of this encounter (statuses as of 09/26/2023) [facility]* Problem Noted [...] as of this encounter (statuses as of 09/26/2023) [facility]* Problem Noted [...] as of this encounter (statuses as of 09/28/2023) [facility]* Diagnosis Factor V Leiden (HCC)- Primary Primary hypercoagulable state Anticoagulated on Coumadin Encounter for therapeutic drug [facility] Situational insomnia- Primary Transient disorder of initiating or maintaining sleep Factor V Leiden (HCC) Primary hypercoagulable state Anticoagulated on Coumadin Encounter for therapeutic drug monitoring Generalized anxiety disorder Fatigue, unspecified type Hair loss Alopecia, unspecified Anemia, unspecified type [facility] Generalized anxiety disorder [facility] Diagnosis Well adult exam- Primary Routine general medical examination at a health care facility [facility] Diagnosis Encounter for screening mammogram for breast cancer [facility] Diagnosis Factor V Leiden (HCC)- Primary Primary hypercoagulable state Screening for osteoporosis Special screening for osteoporosis Generalized anxiety disorder Situational insomnia Transient disorder of initiating or maintaining sleep Anticoagulated on Coumadin Encounter for therapeutic drug monitoring Dyslipidemia Other and unspecified hyperlipidemia [facility] Diagnosis Screening for osteoporosis Special screening for osteoporosis [facility] Diagnosis Encounter for screening mammogram for breast cancer [facility] Diagnosis Burning with urination- Primary Dysuria Acute low back pain without sciatica, unspecified back pain laterality Acute cystitis with hematuria Acute cystitis [facility] Diagnosis Edema of right lower leg Generalized anxiety disorder documented in this encounter [facility] note* Diagnosis Generalized anxiety disorder- Primary Recurrent UTI (urinary tract infection) Urinary tract infection, site not specified Factor V Leiden (HCC) Primary hypercoagulable state Edema of right lower leg Anticoagulated on Coumadin Encounter for therapeutic drug monitoring Fatigue, unspecified type Iron deficiency Iron deficiency anemia, unspecified Varicose veins of bilateral lower extremities with other complications documented in this encounter [facility] note* Diagnosis Elevated alkaline phosphatase level- Primary Other nonspecific abnormal serum enzyme levels Elevated serum creatinine Other nonspecific findings on examination of blood documented in this encounter [facility] note* Diagnosis Fatty liver- Primary Other chronic nonalcoholic liver disease documented in this encounter [facility] note* Diagnosis Fatigue, unspecified type Hair loss Alopecia, unspecified Anemia, unspecified type Generalized anxiety disorder documented in this encounter [facility] note* Diagnosis Fatigue, unspecified type Hair loss Alopecia, unspecified Anemia, unspecified type Generalized anxiety disorder Edema of right lower leg documented in this encounter [facility] note* Diagnosis Fatigue, unspecified type Hair loss Alopecia, unspecified Anemia, unspecified type Generalized anxiety disorder Edema of right lower leg documented in this encounter [facility] noteNo assessment information availableWMercy Health [facility] Work Phone: Evaluation note* Diagnosis Obesity, Class III, BMI 40-49.9 (morbid obesity) (HCC)- Primary Morbid obesity Fatty liver Other chronic nonalcoholic liver disease Iron deficiency Iron deficiency anemia, unspecified Anticoagulated on Coumadin Encounter for therapeutic drug monitoring Dyslipidemia Other and unspecified hyperlipidemia documented in this encounter [facility] note* Diagnosis Situational insomnia Transient disorder of initiating or maintaining sleep documented in this encounter [facility] note* Diagnosis Irritant contact dermatitis, unspecified trigger- Primary Obesity, Class III, BMI 40-49.9 (morbid obesity) (HCC) Morbid obesity Gastroesophageal reflux disease without esophagitis Esophageal reflux Anticoagulated on Coumadin Encounter for therapeutic drug monitoring Elevated serum creatinine Other nonspecific findings on examination of blood [facility]* Diagnosis Encounter for screening mammogram for breast cancer documented [facility]* Diagnosis Elevated alkaline phosphatase level Other nonspecific abnormal serum enzyme levels documented in this encounter [facility] note* Diagnosis Obesity, Class III, BMI 40-49.9 (morbid obesity) ([facility])- Primary Morbid obesity Chronic pain of right knee Migraine, unspecified, without mention of intractable migraine without mention of status migrainosus documented in this encounter [facility] note* Diagnosis COVID-19- Primary documented in this encounter [facility] note* Diagnosis Subacute cough- Primary Cough documented in this encounter [facility] note* Diagnosis Subacute cough Cough documented in this encounter [facility] note* Diagnosis Obesity, Class III, BMI 40-49.9 (morbid obesity) ([facility])- Primary Morbid obesity Generalized anxiety disorder Anticoagulated on Coumadin Encounter for therapeutic drug monitoring documented in this encounter [facility] note* Diagnosis Onset Date Resolution Status Bronchitis acute [facility] Work Phone: evaluation note* Diagnosis Onset Date Resolution Status Bronchitis acute Hypoxia acute [facility] Work Phone: Evaluation note* Diagnosis SOB (shortness of breath)- Primary Shortness of breath Generalized weakness Other malaise and fatigue Influenza A Influenza with other respiratory manifestations Factor V Leiden (HCC) Primary hypercoagulable state Hematuria, unspecified type Leg swelling Swelling of limb documented in this encounter [facility] note* Diagnosis Onset Date Resolution Status Bronchitis resolved Edema of both lower extremities acute Factor V Leiden acute Hypoxia acute Influenza A acute Pneumonia acute Shortness of breath acute [facility] Work Phone: evaluation note* Diagnosis Hospital discharge follow-up- Primary Other follow-up examination Bacterial pneumonia Bacterial pneumonia, unspecified SOB (shortness of breath) Shortness of breath documented in this encounter [facility] note* Diagnosis Edema of right lower leg documented [facility] this encounter [facility]* Diagnosis Fatigue, unspecified type Hair loss Alopecia, unspecified Anemia, unspecified type documented in this encounter [facility] note* Diagnosis Bacterial pneumonia- Primary Bacterial pneumonia, unspecified Community acquired pneumonia of right lower lobe of lung Cough documented in this encounter [facility]* Diagnosis Generalized anxiety disorder documented in this encounter [facility]* Diagnosis Bilateral leg edema- Primary Edema Factor V Leiden (HCC) Primary hypercoagulable state documented in this encounter [facility] note* Diagnosis Encounter for screening mammogram for [facility] cancer [facility] Chronic pain of right knee [facility] Diagnosis Factor V Leiden (HCC) Primary hypercoagulable state [facility] Diagnosis Factor V Leiden (HCC) Primary hypercoagulable state [facility] Diagnosis Anticoagulated on Coumadin- Primary Encounter for therapeutic drug monitoring [facility] Diagnosis Edema of right lower leg [facility] Diagnosis Generalized anxiety disorder Edema of right lower leg [facility] Diagnosis Generalized anxiety disorder [facility] Diagnosis On warfarin therapy- Primary [facility] Diagnosis Excoriation of groin, initial encounter- Primary Candidiasis of skin Candidiasis of skin and nails Dysuria Urinary frequency Screening for depression Class 3 severe obesity with body mass index (BMI) of 50.0 to 59.9 in adult (HCC) Anticoagulated on Coumadin Encounter for therapeutic drug monitoring Iron deficiency anemia secondary to inadequate dietary iron intake Factor V Leiden (HCC) Primary hypercoagulable state Bilateral leg edema Edema Dyslipidemia Other and unspecified hyperlipidemia [facility] Diagnosis Encounter for screening mammogram for breast cancer [facility] Diagnosis Well adult exam- Primary Routine general medical examination at a health care facility Factor V Leiden (HCC) Primary hypercoagulable state Anticoagulated on Coumadin Encounter for therapeutic drug monitoring Urinary frequency UTI due to Klebsiella species Thyromegaly Goiter, unspecified Family history of thyroid disease Family history of other endocrine and metabolic diseases Obesity, Class III, BMI >= 40 Morbid obesity Generalized anxiety disorder [facility] Diagnosis Factor V Leiden (HCC)- Primary Primary hypercoagulable state Intertrigo Other specified erythematous condition [facility]* Diagnosis UTI due to Klebsiella species- Primary [facility] John Paul Trujillo [facility] August 08, 2023 8:12pm Note Date/Time August 08, 2023 8:12pm [facility] Medical Records Department [address] [place] [address] H&P Exam - Hospitalist 08/08/232002 MR#: [id number] Acct: [id number] Name: VERO HOLT Rep #:[id number] : 1970 53 From: John Paul Trujillo DO PCP: Dr. Handy Mike, DO Status:AD M IN [facility] - General General Date of Admission: 08/08/23 Date of Service: 08/08/23 Chief Complaint: Shortness of breath, leg edema, low pulse ox HPI Narrative VERO HOLT, is a 53 F who presents to the emergency room at [facility] after being sent in from her PCPs office due to a low pulse ox of 89% on room air. Patient had been complaining of some shortness of breath, she had influenza proximately 10 to 14 days ago. Patient denies any pulmonary issues. Patient takes Lasix usually for lower extremity edema and shestates she has been sick and not able to take some oral medications such as Lasix and Coumadin. 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 Patient denied any productive cough, she denied any chills or fever. Patient complained of a dry cough. Workup in the emergency room included a CBC which showed a normal white blood cell count, hemoglobin was 11.7, patient's chemistry profile was remarkable for creatinine of 1.04, and a CTA of the chest was performed which showed no evidence of pulmonary embolus, there were diffuse patchy bilateral airspace disease and groundglass opacities concerning for pneumonia. Patient's pulse ox on room air was 94%, on ambulation her pulse ox dropped to 84%. At the time of this dictation, patient's COVID antigen, RSV antigen, and respiratory panel are pending. Patient will be admitted to [facility], she will be placed on oral Levaquin, she will be seen in consultation by pulmonary medicine, she will be given 1 dose of IV Lasix due to lower extremity edema. Patient will have an echocardiogram performed due to concerns of possible right-sided heart failure. [facility] Medical History Abnormal Pap smear of cervix Anxiety Chest pain Factor V deficiency Migraine SOB (shortness of breath) Home Medications warfarin 4 mg tablet 4 mg PO Saturday10/01/17 [History Last Taken Unknown] warfarin 6 mg tablet 6 mg PO SUTUWETHFRSA 10/01/17 [History Last Taken Unknown] fluoxetine 20 mg capsule 50 mg PO DAILY 09/05/20 [History Last Taken Unknown] ondansetron 4 mg disintegrating tablet 4 mg PO Q8H PRN PRN Nausea #10 tabs 03/02/21 [Rx Last Taken Unknown] propranolol 20 mg tablet 40 mg PO DAILY 03/02/21 [History Last Taken Unknown] azithromycin 250 mg tablet See Rx Instructions PO .COMPLEX #6 tabs 05/04/23 [Rx Last Taken Unknown] benzonatate 100 mg capsule 100 mg PO TID PRN cough #21 caps 05/04/23 [Rx Last Taken Unknown] albuterol sulfate 90 mcg/actuation aerosol inhaler (Ventolin HFA) 2 puff inhalation Q4H PRN PRN Wheezing/SOB #1 device 08/01/23 [Rx Last Taken Unknown] codeine 10 mg-guaifenesin 100 mg/5 mL oral liquid 5 ml PO 4X/DAY PRN PRN cough 7days #140 mL 08/01/23 [Rx Last Taken Unknown] ondansetron 4 mg disintegrating tablet 4 mg PO TID PRN nausea and vomiting #21 tabs 08/01/23 [Rx Last Taken Unknown] Allergy/AdvReac Type Severity Reaction Status Date / Time codeine AdvReac Vomiting Verified 08/08/23 14:36 hydrocodone bitartrate AdvReac Pain in Verified 08/08/23 14:36 [From Vicodin] joints Family History Father Diabetes Congestive heart failure Asthma Mother Congestive heart failure Surgical History delivery delivered History of cholecystectomy Social History household members: none Smoking Status: Never smoker alcohol intake: never substance use type: does not use caffeine: Yes what type of physical activity do you participate in: walking seatbelt use: always do you feel safe at home: Yes additional social history: - [facility] ROS Constitutional Constitutional: Denies anorexia, change in weight, chills, fatigue, fever(s), malaise, night sweats or weakness Eyes Eyes: Denies blurry vision, change in vision, discharge from eye(s) or eye pain Cardiovascular Cardiovascular: Reports dyspnea on exertion; Denies chest pain, claudication, edema or palpitations Respiratory/Chest Respiratory/Chest: Reports cough, dyspnea and shortness of breath with exertion;Denies hemoptysis or shortness of breath at rest Gastrointestinal Gastrointestinal: Denies abdominal pain, constipation, diarrhea, hematemesis, hematochezia, melena, nausea or vomiting Genitourinary Genitourinary: Denies dysuria, hematuria, urinary frequency, urinary hesitancy, urinary incontinence or urinary urgency Musculoskeletal Musculoskeletal: Denies back pain, joint pain, joint stiffness, joint swelling, myalgias or neck pain Neurologic Neurologic: Denies abnormal gait, abnormal speech, dizziness, focal weakness, headache(s), loss of vision, numbness, other visual disturbances, paresthesias, syncope or tingling Psychiatric Psychiatric: Denies anxiety, cognitive impairment, depression, irritability, mood swings or suicidal ideation Endocrine Endocrinology: Denies change in body appearance, cold intolerance, excessive sweating, heat intolerance, polydipsia or polyuria Hematologic/Lymphatic Hematologic/Lymphatic: Denies none, anemia, easy bleeding, easy bruising or lymphadenopathy Allergic/Immunologic Allergic/Immunologic: Denies rhinitis, urticaria, eczemia or asthma Vital Signs Vital Signs Vital Signs: 08/08/23 14:36 08/08/23 16:26 08/08/23 16:27 Temperature 98.5 F Temperature Source Temporal Pulse Rate 86 73 Respiratory Rate 20 H 22 H Respiratory Effort Blood Pressure 118/59 L 126/63 H Blood Pressure Mean 78 84 Pulse Ox 91 94 92 Oxygen Delivery Method Room Air Room Air Room Air Oxygen Flow Rate (L/min) 08/08/23 16:29 08/08/23 16:56 08/08/23 17:45 Temperature 98 F Temperature Source Pulse Rate 78 Respiratory Rate 20 H Respiratory Effort Non-Labored Short of Breath Blood Pressure 121/62 H Blood Pressure Mean 81 Pulse Ox 93 92 Oxygen Delivery Method Room Air Room Air Oxygen Flow Rate (L/min) 08/08/23 19:44 08/08/23 19:44 Temperature Temperature Source Pulse Rate 77 Respiratory Rate 21 H Respiratory Effort Blood Pressure 106/51 L Blood Pressure Mean 69 Pulse Ox 87 92 Oxygen Delivery Method Room Air Nasal Cannula Oxygen Flow Rate (L/min) 2 Weight Weight: 120.338 kg Body Mass Index (BMI) 47.0 Physical Exam Const alert, oriented x3, no apparent distress and average body habitus Constitutional Narrative: Patient is morbidly obese General Appearance: cooperative, well kempt and well developed Orientation / Consciousness: awake, oriented to person, oriented to place and oriented to time HEENT normocephalic, head/scalp atraumatic, hearing grossly normal bilaterally and moist oral mucous membranes Eyes PERRL, EOMs intact bilaterally and conjunctivae normal Neck supple, no JVD, thyroid normal and no carotid bruits General: trachea midline Resp normal respiratory effort, no retractions and no use of accessory muscles Resp Narrative: Auscultation of the lungs reveals inspiratory rales scattered over all lung mao, there is no rhonchi or wheezes noted Auscultation: rales diffuse; Negative for rhonchi or wheezes Cardio regular rate, regular rhythm, S1 normal heart sound, S2 normal heart sound, no murmurs, no rub and no gallops GI normal to inspection, nondistended, normoactive bowel sounds, soft to palpation,non-tender and non-distended Extremity Extremity Narrative: Bilateral lower leg edema is noted on examination Skin no rashes or lesions noted General Skin Exam: no breakdown Neuro oriented x3, CN's II-XII intact bilaterally, moves all extremities, no focal motor deficits and no sensory deficits noted Sensorium / Orientation: awake and alert Speech: speech normal Psych affect normal Results Lab / Micro Data 08/08/23 15:50 08/08/23 15:50 Labs: Laboratory Results - last 24 hr 08/08/23 15:50: WBC 4.8, RBC 3.76 L, Hgb 11.7 L, Hct 35.2 L, MCV 93.6, MCH 31.1,MCHC 33.2, RDW Std Deviation 43.6, RDW Coeff of Delmy 12.9, Plt Count 237, MPV 8.4, Immature Gran % (Auto) 1.400 H, Neut % (Auto) 63.3, Lymph % (Auto) 24.6, Dickenson % (Auto) 8.9, Eos % (Auto) 1.4, Baso % (Auto) 0.4, Absolute Neuts (auto) 3.1, Absolute Lymphs (auto) 1.19, Nucleated RBC % 0, PT 18.7 H, INR 1.6, Sodium 139, Potassium 3.5, Chloride 102, Carbon Dioxide 32.0, Anion Gap 5, BUN 15, Creatinine 1.04 H, Estim Creat Clear Calc 76.78, Est GFR (MDRD) Af Amer 71, Est GFR (MDRD) Non-Af 58 L, BUN/Creatinine Ratio 14.4, Glucose 96, Calcium 8.5, Troponin I High Sens 10, B-Natriuretic Peptide 59.7 Micro: Microbiology 08/08/23 18:35 Nasal Secretion SARS-CoV-2 Antigen (Rapid) - Final Imaging Radiology Impression Chest CTA 08/08/23 15:15 IMPRESSION: 1. No evidence of pulmonary embolus. 2. Diffuse patchy bilateral airspace disease and groundglass opacities which may represent developing bilateral pneumonia. Electronically Signed: Carlos Diaz MD at 16:24 EST , Assessment & Plan Assessment/Plan (1) Hypoxia: PLAN: Plan 1. Bilateral pneumonia-probably viral in nature, at the time of this dictation,her COVID antigen test was negative, respiratory panel is pending, patient will be maintained on oral Levaquin, she will be given aerosol treatments and seen inconsultation by pulmonary medicine. Due to concerns of fluid overload I have elected to give her 1 dose of IV Lasix. #2 hypoxia secondary to #1-pulse ox will be monitored #3 factor V Leiden-patient will be placed on subcu Lovenox, she has not been taking her Coumadin on a routine basis, she has been reminded how important it is is to stay compliant with her medications. #4 lower extremity edema-etiology unclear, patient will undergo an echocardiogram to rule out any valvular dysfunction and/or pulmonary hypertension. #5 morbid obesity-complicates care, medical course, recovery, and prognosis #6 poor compliance with medical regimen-complicates care, medical course, recovery, and prognosis Total clinical time spent by myself addressing the patient's medical issues, reviewing all of her data, and collaborating with patient's care team: 75 minutes Charges/Coding Visit Charges Inpatient E&M: 94960 Init Hosp L3 08/08/232011 <Electronically signed by John Paul Trujillo DO> Cosigner Signature (if applicable): CC: Dr. Handy Mike DO; Dr. John Paul Trujillo DO~ Signed [facility] Work Phone: Hospital Discharge instructions Additional Instructions You have influenza A which is a viral infection that we will take roughly 5 to 10 days to resolve. Stay well-hydrated and take the prescribed medications as directed to help control symptoms. If you have any further concerns please return to the [facility]: Reason for referral (narrative)* Diagnostic Procedure Only (Routine) - Pending Review Specialty Diagnoses / Procedures Referred By Prabhu givens Referred To Contact [facility] Diagnoses Encounter for screening mammogram for breast cancer Procedures TJ SCREENING SCREENING MAMMOGRAPHY BI 2-VIEW BREAST INC CAD Handy Mike DO [address] [place] [address] [facility] [address] [place] [address] Referral ID Status Reason Start Date Expiration Date Visits Requested Visits Authorized [id number] Pending Review Auto-Generat ed Referral 01/10/2022 02/09/2023 1 1 [facility] for referral (narrative)* Diagnostic Procedure Only (Routine) - Closed Specialty Diagnoses / Procedures Referred By Prabhu givens Referred To Contact [facility] Diagnoses Encounter for screening mammogram for breast cancer Procedures TJ SCREENING SCREENING MAMMOGRAPHY BI 2-VIEW BREAST INC CAD Handy Mike DO [address] [place] [address] [facility] [address] [place] [address] Referral ID Status Reason Start Date Expiration Date V isits Requested Visits Authorized [id number] Closed Auto-Generate d Referral 01/10/2022 02/09/2023 1 1 [facility] for referral (narrative)* Diagnostic Procedure Only (Routine) - Closed Specialty Diagnoses / Procedures Referred By Contac t Referred To Contact US IMAGING Diagnoses Elevated alkaline phosphatase level Procedures US ABD RT UPPER QUADRANT US ABDOMINAL REAL TIME W/IMAGE LIMITED Handy Mike, DO [address] [place] [address] [facility] Referral ID Status Reason Start Date Expiration Date V isits Requested Visits Authorized [id number] Closed Auto-Generate d Referral 06/27/2022 07/27/2023 1 1 [facility] for referral (narrative)* Diagnostic Procedure Only (Routine) - Pending Review Specialty Diagnoses / Procedures Referred By Contac t Referred To Contact [facility] Diagnoses Fatty liver Procedures US ELASTOGRAPHY LIVER ULTRASOUND ELASTOGRAPHY PARENCHYMA Handy Mike, DO [address] [place] [address] [facility] Referral ID Status Reason Start Date Expiration Date Visits Requested Visits Authorized [id number] Pending Review Auto-Generat ed Referral 07/04/2022 08/03/2023 1 1 * Diagnostic Procedure Only (Routine) - Pending Review Specialty Diagnoses / Procedures Referred By Contac t Referred To Contact US IMAGING Diagnoses Fatty liver Procedures US ABD RT UPPER QUADRANT US ABDOMINAL REAL TIME W/IMAGE LIMITED Handy Mike, DO [address] [place] [address] [facility] Referral ID Status Reason Start Date Expiration Date Visits Requested Visits Authorized [id number] Pending Review Auto-Generat ed Referral 07/04/2022 08/03/2023 1 1 [facility] for referral (narrative)* Diagnostic Procedure Only (Routine) - Pending Review Specialty Diagnoses / Procedures Referred By Contac t Referred To Contact [facility] Diagnoses Encounter for screening mammogram for breast cancer Procedures TJ SCREENING SCREENING MAMMOGRAPHY BI 2-VIEW BREAST INC CAD Handy Mike, DO [address] [place] [address] [facility] [address] [place] [address] Referral ID Status Reason Start Date Expiration Date Visits Requested Visits Authorized [id number] Pending Review Auto-Generat ed Referral 05/02/2024 1 1 [facility] for referral (narrative)* Diagnostic Procedure Only (Routine) - Closed Specialty Diagnoses / Procedures Referred By Contac t Referred To Contact US IMAGING Diagnoses Elevated alkaline phosphatase level Procedures US ABD RT UPPER QUADRANT US ABDOMINAL REAL TIME W/IMAGE LIMITED Handy Mike DO [address] [place] [address] [place] [address] Referral ID Status Reason Start Date Expiration Date V isits Requested Visits Authorized [id number] Closed Auto-Generate d Referral 06/27/2022 07/27/2023 1 1 [facility] for referral (narrative)* Diagnostic Procedure Only (Routine) - Closed Specialty Diagnoses / Procedures Referred By Contac t Referred To Contact XR IMAGING Diagnoses Chronic pain of right knee Procedures XR KNEE GENERAL 4V AP BOTH/PA BOTH/LAT/MERC RIGHT RADIOLOGIC EXAM KNEE COMPLETE 4/MORE VIEWS Jimmie Carlos APRN.[employer] [address] [place] [address] [place] [address] Referral ID Status Reason Start Date Expiration Date V isits Requested Visits Authorized [id number] Closed Auto-Generate d Referral 04/15/2023 05/14/2024 1 1 [facility] for referral (narrative)* Diagnostic Procedure Only (Routine) - Closed Specialty Diagnoses / Procedures Referred By Contac t Referred To Contact XR IMAGING Diagnoses Chronic pain of right knee Procedures XR KNEE GENERAL 4V AP BOTH/PA BOTH/LAT/MERC RIGHT RADIOLOGIC EXAM KNEE COMPLETE 4/MORE VIEWS Jimmie Carlos APRN.[employer] [address] [place] [address] [place] [address] Referral ID Status Reason Start Date Expiration Date V isits Requested Visits Authorized [id number] Closed Auto-Generate d Referral 04/15/2023 05/14/2024 1 1 [facility] for visit Narrative* Diagnostic Procedure Only (Routine) - Closed Specialty Diagnoses / Procedures Referred By Contac t Referred To Contact [facility] Diagnoses Encounter for screening mammogram for breast cancer Procedures TJ SCREENING SCREENING MAMMOGRAPHY BI 2-VIEW BREAST INC CAD Handy Mike L, DO [address] [place] [address] [facility] [address] [place] [address] Referral ID Status Reason Start Date Expiration Date V isits Requested Visits Authorized [id number] Closed Auto-Generate d Referral 01/10/2022 02/09/2023 1 1 [facility] for visit Narrative* Diagnostic Procedure Only (Routine) - Closed Specialty Diagnoses / Procedures Referred By Contac t Referred To Contact [facility] Diagnoses Encounter for screening mammogram for breast cancer Procedures TJ SCREENING SCREENING MAMMOGRAPHY BI 2-VIEW BREAST INC CAD MikeHandy L, DO [address] [place] [address] [facility] [address] [place] [address] Referral ID Status Reason Start Date Expiration Date V isits Requested Visits Authorized [id number] Closed Auto-Generate d Referral 04/03/2023 05/02/2024 1 1 [facility] for visit Narrative* Diagnostic Procedure Only (Routine) - Closed Specialty Diagnoses / Procedures Referred By Contac t Referred To Contact XR IMAGING Diagnoses Chronic pain of right knee Procedures XR KNEE GENERAL 4V AP BOTH/PA BOTH/LAT/MERC RIGHT RADIOLOGIC EXAM KNEE COMPLETE 4/MORE VIEWS Jimmie Carlos APRN.[employer] [address] [place] [address] [facility] [place] [id number] Referral ID Status Reason Start Date Expiration Date V isits Requested Visits Authorized [id number] Closed Auto-Generate d Referral 04/15/2023 05/14/2024 1 1 [facility] N[facility]* Diagnostic Procedure Only (Routine) - Closed Specialty Diagnoses / Procedures Referred By Contac t Referred To Contact [facility] Diagnoses Encounter for screening mammogram for breast cancer Procedures TJ SCREENING W REGIS SCREENING DIGITAL BREAST TOMOSYNTHESIS BI SCREENING MAMMOGRAPHY BI 2-VIEW BREAST INC CAD Handy Mike L, DO [address] [place] [address] Phone: tel: fax: [facility] [address] [place] [address] Referral ID Status Reason Start Date Expiration Date V isits Requested Visits Authorized [id number] Closed Auto-Generate d Referral 11/03/2024 12/03/2025 1 1 [facility] Advance Directives No Advanced Directives Records FoundDocuments on File Type Date Recorded 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 Advance Directive(s) 12/03/2019 9:05 AM Advance Directive(s) 11/25/2019 3:21 PM Advance Directive Response Recorded Date/ Time Living Will No September 13, 2022 1:23pm 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 No September 13 1:23pm Advance Directive Response Recorded Date/ Time Living Will No July 31 11:49pm 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 No July 31, 2023 11:49pm Advance Directive Response Recorded Date/ Time Living Will No July 024 4:28pm 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 No August 08, 2023 4:28pm Advance Directive Response Recorded Date/ Time Living Will No July 024 9:13pm 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 No August 08, 2023 9:13pm Chief Complaint and Reason for Visit Chief Complaint FALL Chief Complaint COUGH/CONGESTION cough, fever, n/v/d Reason for Visit Bronchitis Chief Complaint COUGH/CONGESTION cough, fever, n/v/d BILATERAL PNEUMONIA, HYPOXIA BILATERAL PNEUMONIA, HYPOXIA Reason for Visit Bronchitis Hypoxia Chief Complaint COUGH/CONGESTION cough, fever, n/v/d BILATERAL PNEUMONIA, HYPOXIA BILATERAL PNEUMONIA, HYPOXIA BILATERAL PNEUMONIA, HYPOXIA BILATERAL PNEUMONIA, HYPOXIA BILATERAL PNEUMONIA, HYPOXIA Reason for Visit Bronchitis Edema of both lower extremities Factor V Leiden Hypoxia Influenza A Pneumonia Shortness of breath Family History No Family History Records Found Relationship Condition Age at Onset Recorded Date/T tremaine father Diabetes mellitus Unknown Congestive heart failure Unknown Asthma Unknown mother Congestive heart failure Unknown Summary Purpose Additional Source Comments Source Comments (unrecognize d section and content) In the event this informatio n is protected by the Federal Confidentiality of Alcohol and Drug Abuse Patient Records regulations: The Federal rules restrict any use of the information to criminally investigate or prosecute any alcohol or drug abuse patient.[facility] CenterIn the event this information is protected by the Federal Confidentiality of Alcohol and Drug Abuse Patient Records regulations: The Federal rules restrict any use of the information to criminally investigate or prosecute any alcohol or drug abuse patient.[facility] CenterIn the event this information is protected by the Federal Confidentiality of Alcohol and Drug Abuse Patient Records regulations: The Federal rules restrict any use of the information to criminally investigate or prosecute any alcohol or drug abuse patient.[facility] CenterIn the event this information is protected by the Federal Confidentiality of Alcohol and Drug Abuse Patient Records regulations: The Federal rules restrict any use of the information to criminally investigate or prosecute any alcohol or drug abuse patient.[facility] CenterIn the event this information is protected by the Federal Confidentiality of Alcohol and Drug Abuse Patient Records regulations: The Federal rules restrict any use of the information to criminally investigate or prosecute any alcohol or drug abuse patient.[facility] CenterIn the event this information is protected by the Federal Confidentiality of Alcohol and Drug Abuse Patient Records regulations: The Federal rules restrict any use of the information to criminally investigate or prosecute any alcohol or drug abuse patient.[facility] CenterIn the event this information is protected by the Federal Confidentiality of Alcohol and Drug Abuse Patient Records regulations: The Federal rules restrict any use of the information to criminally investigate or prosecute any alcohol or drug abuse patient.[facility] CenterIn the event this information is protected by the Federal Confidentiality of Alcohol and Drug Abuse Patient Records regulations: The Federal rules restrict any use of the information to criminally investigate or prosecute any alcohol or drug abuse patient.[facility] CenterIn the event this information is protected by the Federal Confidentiality of Alcohol and Drug Abuse Patient Records regulations: The Federal rules restrict any use of the information to criminally investigate or prosecute any alcohol or drug abuse patient.[facility] CenterIn the event this information is protected by the Federal Confidentiality of Alcohol and Drug Abuse Patient Records regulations: The Federal rules restrict any use of the information to criminally investigate or prosecute any alcohol or drug abuse patient.[facility] CenterIn the event this information is protected by the Federal Confidentiality of Alcohol and Drug Abuse Patient Records regulations: The Federal rules restrict any use of the information to criminally investigate or prosecute any alcohol or drug abuse patient.[facility] CenterIn the event this information is protected by the Federal Confidentiality of Alcohol and Drug Abuse Patient Records regulations: The Federal rules restrict any use of the information to criminally investigate or prosecute any alcohol or drug abuse patient.[facility] CenterIn the event this information is protected by the Federal Confidentiality of Alcohol and Drug Abuse Patient Records regulations: The Federal rules restrict any use of the information to criminally investigate or prosecute any alcohol or drug abuse patient.[facility] CenterIn the event this information is protected by the Federal Confidentiality of Alcohol and Drug Abuse Patient Records regulations: The Federal rules restrict any use of the information to criminally investigate or prosecute any alcohol or drug abuse patient.[facility] CenterIn the event this information is protected by the Federal Confidentiality of Alcohol and Drug Abuse Patient Records regulations: The Federal rules restrict any use of the information to criminally investigate or prosecute any alcohol or drug abuse patient.[facility] CenterIn the event this information is protected by the Federal Confidentiality of Alcohol and Drug Abuse Patient Records regulations: The Federal rules restrict any use of the information to criminally investigate or prosecute any alcohol or drug abuse patient.[facility] CenterIn the event this information is protected by the Federal Confidentiality of Alcohol and Drug Abuse Patient Records regulations: The Federal rules restrict any use of the information to criminally investigate or prosecute any alcohol or drug abuse patient.[facility] CenterIn the event this information is protected by the Federal Confidentiality of Alcohol and Drug Abuse Patient Records regulations: The Federal rules restrict any use of the information to criminally investigate or prosecute any alcohol or drug abuse patient.[facility] CenterIn the event this information is protected by the Federal Confidentiality of Alcohol and Drug Abuse Patient Records regulations: The Federal rules restrict any use of the information to criminally investigate or prosecute any alcohol or drug abuse patient.[facility] CenterIn the event this information is protected by the Federal Confidentiality of Alcohol and Drug Abuse Patient Records regulations: The Federal rules restrict any use of the information to criminally investigate or prosecute any alcohol or drug abuse patient.[facility] CenterIn the event this information is protected by the Federal Confidentiality of Alcohol and Drug Abuse Patient Records regulations: The Federal rules restrict any use of the information to criminally investigate or prosecute any alcohol or drug abuse patient.[facility] CenterIn the event this information is protected by the Federal Confidentiality of Alcohol and Drug Abuse Patient Records regulations: The Federal rules restrict any use of the information to criminally investigate or prosecute any alcohol or drug abuse patient.[facility] CenterIn the event this information is protected by the Federal Confidentiality of Alcohol and Drug Abuse Patient Records regulations: The Federal rules restrict any use of the information to criminally investigate or prosecute any alcohol or drug abuse patient.[facility] CenterIn the event this information is protected by the Federal Confidentiality of Alcohol and Drug Abuse Patient Records regulations: The Federal rules restrict any use of the information to criminally investigate or prosecute any alcohol or drug abuse patient.[facility] CenterIn the event this information is protected by the Federal Confidentiality of Alcohol and Drug Abuse Patient Records regulations: The Federal rules restrict any use of the information to criminally investigate or prosecute any alcohol or drug abuse patient.[facility] CenterIn the event this information is protected by the Federal Confidentiality of Alcohol and Drug Abuse Patient Records regulations: The Federal rules restrict any use of the information to criminally investigate or prosecute any alcohol or drug abuse patient.[facility] CenterIn the event this information is protected by the Federal Confidentiality of Alcohol and Drug Abuse Patient Records regulations: The Federal rules restrict any use of the information to criminally investigate or prosecute any alcohol or drug abuse patient.[facility] CenterIn the event this information is protected by the Federal Confidentiality of Alcohol and Drug Abuse Patient Records regulations: The Federal rules restrict any use of the information to criminally investigate or prosecute any alcohol or drug abuse patient.[facility] CenterIn the event this information is protected by the Federal Confidentiality of Alcohol and Drug Abuse Patient Records regulations: The Federal rules restrict any use of the information to criminally investigate or prosecute any alcohol or drug abuse patient.[facility] CenterIn the event this information is protected by the Federal Confidentiality of Alcohol and Drug Abuse Patient Records regulations: The Federal rules restrict any use of the information to criminally investigate or prosecute any alcohol or drug abuse patient.[facility] CenterIn the event this information is protected by the Federal Confidentiality of Alcohol and Drug Abuse Patient Records regulations: The Federal rules restrict any use of the information to criminally investigate or prosecute any alcohol or drug abuse patient.[facility] the event this information is protected by the Federal Confidentiality of Alcohol and Drug Abuse Patient Records regulations: The Federal rules restrict any use of the information to criminally investigate or prosecute any alcohol or drug abuse patient.[facility] CenterIn the event this information is protected by the Federal Confidentiality of Alcohol and Drug Abuse Patient Records regulations: The Federal rules restrict any use of the information to criminally investigate or prosecute any alcohol or drug abuse patient.[facility] CenterIn the event this information is protected by the Federal Confidentiality of Alcohol and Drug Abuse Patient Records regulations: The Federal rules restrict any use of the information to criminally investigate or prosecute any alcohol or drug abuse patient.[facility]In the event this information is protected by the Federal Confidentiality of Alcohol and Drug Abuse Patient Records regulations: The Federal rules restrict any use of the information to criminally investigate or prosecute any alcohol or drug abuse patient.[facility] CenterIn the event this information is protected by the Federal Confidentiality of Alcohol and Drug Abuse Patient Records regulations: The Federal rules restrict any use of the information to criminally investigate or prosecute any alcohol or drug abuse patient.[facility] CenterIn the event this information is protected by the Federal Confidentiality of Alcohol and Drug Abuse Patient Records regulations: The Federal rules restrict any use of the information to criminally investigate or prosecute any alcohol or drug abuse patient.[facility] CenterIn the event this information is protected by the Federal Confidentiality of Alcohol and Drug Abuse Patient Records regulations: The Federal rules restrict any use of the information to criminally investigate or prosecute any alcohol or drug abuse patient.[facility] CenterIn the event this information is protected by the Federal Confidentiality of Alcohol and Drug Abuse Patient Records regulations: The Federal rules restrict any use of the information to criminally investigate or prosecute any alcohol or drug abuse patient.[facility] CenterIn the event this information is protected by the Federal Confidentiality of Alcohol and Drug Abuse Patient Records regulations: The Federal rules restrict any use of the information to criminally investigate or prosecute any alcohol or drug abuse patient.[facility] CenterIn the event this information is protected by the Federal Confidentiality of Alcohol and Drug Abuse Patient Records regulations: The Federal rules restrict any use of the information to criminally investigate or prosecute any alcohol or drug abuse patient.[facility] CenterIn the event this information is protected by the Federal Confidentiality of Alcohol and Drug Abuse Patient Records regulations: The Federal rules restrict any use of the information to criminally investigate or prosecute any alcohol or drug abuse patient.[facility] CenterIn the event this information is protected by the Federal Confidentiality of Alcohol and Drug Abuse Patient Records regulations: The Federal rules restrict any use of the information to criminally investigate or prosecute any alcohol or drug abuse patient.[facility] CenterIn the event this information is protected by the Federal Confidentiality of Alcohol and Drug Abuse Patient Records regulations: The Federal rules restrict any use of the information to criminally investigate or prosecute any alcohol or drug abuse patient.[facility] CenterIn the event this information is protected by the Federal Confidentiality of Alcohol and Drug Abuse Patient Records regulations: The Federal rules restrict any use of the information to criminally investigate or prosecute any alcohol or drug abuse patient.[facility] CenterIn the event this information is protected by the Federal Confidentiality of Alcohol and Drug Abuse Patient Records regulations: The Federal rules restrict any use of the information to criminally investigate or prosecute any alcohol or drug abuse patient.[facility] CenterIn the event this information is protected by the Federal Confidentiality of Alcohol and Drug Abuse Patient Records regulations: The Federal rules restrict any use of the information to criminally investigate or prosecute any alcohol or drug abuse patient.[facility] CenterIn the event this information is protected by the Federal Confidentiality of Alcohol and Drug Abuse Patient Records regulations: The Federal rules restrict any use of the information to criminally investigate or prosecute any alcohol or drug abuse patient.[facility] CenterIn the event this information is protected by the Federal Confidentiality of Alcohol and Drug Abuse Patient Records regulations: The Federal rules restrict any use of the information to criminally investigate or prosecute any alcohol or drug abuse patient.[facility] CenterIn the event this information is protected by the Federal Confidentiality of Alcohol and Drug Abuse Patient Records regulations: The Federal rules restrict any use of the information to criminally investigate or prosecute any alcohol or drug abuse patient.[facility] CenterIn the event this information is protected by the Federal Confidentiality of Alcohol and Drug Abuse Patient Records regulations: The Federal rules restrict any use of the information to criminally investigate or prosecute any alcohol or drug abuse patient.[facility] CenterIn the event this information is protected by the Federal Confidentiality of Alcohol and Drug Abuse Patient Records regulations: The Federal rules restrict any use of the information to criminally investigate or prosecute any alcohol or drug abuse patient.[facility] CenterIn the event this information is protected by the Federal Confidentiality of Alcohol and Drug Abuse Patient Records regulations: The Federal rules restrict any use of the information to criminally investigate or prosecute any alcohol or drug abuse patient.[facility] CenterIn the event this information is protected by the Federal Confidentiality of Alcohol and Drug Abuse Patient Records regulations: The Federal rules restrict any use of the information to criminally investigate or prosecute any alcohol or drug abuse patient.[facility] CenterIn the event this information is protected by the Federal Confidentiality of Alcohol and Drug Abuse Patient Records regulations: The Federal rules restrict any use of the information to criminally investigate or prosecute any alcohol or drug abuse patient.[facility] CenterIn the event this information is protected by the Federal Confidentiality of Alcohol and Drug Abuse Patient Records regulations: The Federal rules restrict any use of the information to criminally investigate or prosecute any alcohol or drug abuse patient.[facility] CenterIn the event this information is protected by the Federal Confidentiality of Alcohol and Drug Abuse Patient Records regulations: The Federal rules restrict any use of the information to criminally investigate or prosecute any alcohol or drug abuse patient.[facility] CenterIn the event this information is protected by the Federal Confidentiality of Alcohol and Drug Abuse Patient Records regulations: The Federal rules restrict any use of the information to criminally investigate or prosecute any alcohol or drug abuse patient.[facility] CenterIn the event this information is protected by the Federal Confidentiality of Alcohol and Drug Abuse Patient Records regulations: The Federal rules restrict any use of the information to criminally investigate or prosecute any alcohol or drug abuse patient.[facility] CenterIn the event this information is protected by the Federal Confidentiality of Alcohol and Drug Abuse Patient Records regulations: The Federal rules restrict any use of the information to criminally investigate or prosecute any alcohol or drug abuse patient.[facility] CenterIn the event this information is protected by the Federal Confidentiality of Alcohol and Drug Abuse Patient Records regulations: The Federal rules restrict any use of the information to criminally investigate or prosecute any alcohol or drug abuse patient.[facility] CenterIn the event this information is protected by the Federal Confidentiality of Alcohol and Drug Abuse Patient Records regulations: The Federal rules restrict any use of the information to criminally investigate or prosecute any alcohol or drug abuse patient.[facility] CenterIn the event this information is protected by the Federal Confidentiality of Alcohol and Drug Abuse Patient Records regulations: The Federal rules restrict any use of the information to criminally investigate or prosecute any alcohol or drug abuse patient.[facility] CenterIn the event this information is protected by the Federal Confidentiality of Alcohol and Drug Abuse Patient Records regulations: The Federal rules restrict any use of the information to criminally investigate or prosecute any alcohol or drug abuse patient.[facility] CenterIn the event this information is protected by the Federal Confidentiality of Alcohol and Drug Abuse Patient Records regulations: The Federal rules restrict any use of the information to criminally investigate or prosecute any alcohol or drug abuse patient.[facility] CenterIn the event this information is protected by the Federal Confidentiality of Alcohol and Drug Abuse Patient Records regulations: The Federal rules restrict any use of the information to criminally investigate or prosecute any alcohol or drug abuse patient.[facility] CenterIn the event this information is protected by the Federal Confidentiality of Alcohol and Drug Abuse Patient Records regulations: The Federal rules restrict any use of the information to criminally investigate or prosecute any alcohol or drug abuse patient.[facility] CenterIn the event this information is protected by the Federal Confidentiality of Alcohol and Drug Abuse Patient Records regulations: The Federal rules restrict any use of the information to criminally investigate or prosecute any alcohol or drug abuse patient.[facility] CenterIn the event this information is protected by the Federal Confidentiality of Alcohol and Drug Abuse Patient Records regulations: The Federal rules restrict any use of the information to criminally investigate or prosecute any alcohol or drug abuse patient.[facility] CenterIn the event this information is protected by the Federal Confidentiality of Alcohol and Drug Abuse Patient Records regulations: The Federal rules restrict any use of the information to criminally investigate or prosecute any alcohol or drug abuse patient.[facility] CenterIn the event this information is protected by the Federal Confidentiality of Alcohol and Drug Abuse Patient Records regulations: The Federal rules restrict any use of the information to criminally investigate or prosecute any alcohol or drug abuse patient.[facility] CenterIn the event this information is protected by the Federal Confidentiality of Alcohol and Drug Abuse Patient Records regulations: The Federal rules restrict any use of the information to criminally investigate or prosecute any alcohol or drug abuse patient.[facility] CenterIn the event this information is protected by the Federal Confidentiality of Alcohol and Drug Abuse Patient Records regulations: The Federal rules restrict any use of the information to criminally investigate or prosecute any alcohol or drug abuse patient.[facility] CenterIn the event this information is protected by the Federal Confidentiality of Alcohol and Drug Abuse Patient Records regulations: The Federal rules restrict any use of the information to criminally investigate or prosecute any alcohol or drug abuse patient.[facility] Care Teams (unrecognized sec tion and content) Idea Worker Relationship Specialty Start Date End Date Handy Mike, DO [address] [place] [address] PCP - General Family Practice 07/16/12 Idea Worker Relationship Specialty Start Date End Date Handy Mike DO [address] [place] [address] PCP - General Family Practice 07/16/12 Idea Worker Relationship Specialty Start Date End Date Handy Mike DO [address] [place] [address] PCP - General Family Practice 07/16/12 Idea Worker Relationship Specialty Start Date End Date Handy Mike DO [address] [place] [address] PCP - General Family Practice 07/16/12 Idea Worker Relationship Specialty Start Date End Date Handy Mike DO [address] [place] [address] PCP - General Family Practice 07/16/12 Idea Worker Relationship Specialty Start Date End Date Handy Mike, DO [address] [place] [address] PCP - General Family Practice 07/16/12 Idea Worker Relationship Specialty Start Date End Date Handy Mike, DO [address] [place] [address] PCP - General Family Practice 07/16/12 Idea Worker Relationship Specialty Start Date End Date Handy Mike, DO [address] [place] [address] PCP - General Family Medicine 07/16/12 Idea Worker Relationship Specialty Start Date End Date Handy Mike, DO [address] [place] [address] PCP - General Family Medicine 07/16/12 Idea Worker Relationship Specialty Start Date End Date Handy Mike, DO [address] [place] [address] PCP - General Family Medicine 07/16/12 Idea Worker Relationship Specialty Start Date End Date Handy Mike, DO [address] [place] [address] PCP - General Family Medicine 07/16/12 Idea Worker Relationship Specialty Start Date End Date Handy Mike, DO [address] [place] [address] PCP - General Family Medicine 07/16/12 Idea Worker Relationship Specialty Start Date End Date Handy Mike, DO [address] [place] [address] PCP - General Family Medicine 07/16/12 Idea Worker Relationship Specialty Start Date End Date Handy Mike, DO [address] [place] [address] PCP - General Family Medicine 07/16/12 Idea Worker Relationship Specialty Start Date End Date Handy Mike, DO [address] [place] [address] PCP - General Family Medicine 07/16/12 Idea Worker Relationship Specialty Start Date End Date Handy Mike, DO [address] [place] [address] PCP - General Family Medicine 07/16/12 Idea Worker Relationship Specialty Start Date End Date Handy Mike DO [address] [place] [address] PCP - General Family Medicine 07/16/12 Idea Worker Relationship Specialty Start Date End Date Handy Mike DO [address] [facility] [place] [address] PCP - General Family Medicine 07/16/12 Team Status: Active Member Role Status Dates Dr. Handy Mike , DO Family Provider Active Dr. Handy Mike , DO Primary Care Provider Active Team Status: Inactive Member Role Status Dates Dr. Handy Mike , Primary Care Provider Active Dr. Dillon Genao , DO Emergency Provider Active Idea Worker Relationship Specialty Start Date End Date Handy Mike DO [address] [place] [address] PCP - General Family Medicine 07/16/12 Idea Worker Relationship Specialty Start Date End Date Handy Mike DO [address] [place] [address] PCP - General Family Medicine 07/16/12 Idea Worker Relationship Specialty Start Date End Date Handy Mike DO [address] [place] [address] PCP - General Family Medicine 07/16/12 Idea Worker Relationship Specialty Start Date End Date Handy Mike DO [address] [place] [address] PCP - General Family Medicine 07/16/12 Idea Worker Relationship Specialty Start Date End Date Handy Mike DO [address] [place] [address] PCP - General Family Medicine 07/16/12 Idea Worker Relationship Specialty Start Date End Date Handy Mike, [address] [place] [address] PCP - General Family Medicine 07/16/12 Idea Worker Relationship Specialty Start Date End Date Handy Mike DO [address] [place] [address] PCP - General Family Medicine 07/16/12 Idea Worker Relationship Specialty Start Date End Date Handy Mike DO [address] [place] [address] PCP - General Family Medicine 07/16/12 Idea Worker Relationship Specialty Start Date End Date Handy Mike DO [address] [place] [address] PCP - General Family Medicine 07/16/12 Idea Worker Relationship Specialty Start Date End Date Handy Mike DO [address] [place] [address] PCP - General Family Medicine 07/16/12 Idea Worker Relationship Specialty Start Date End Date Handy Mike DO [address] [place] [address] PCP - General Family Medicine 07/16/12 Idea Worker Relationship Specialty Start Date End Date Handy Mike DO [address] [place] [address] PCP - General Family Medicine 07/16/12 Idea Worker Relationship Specialty Start Date End Date Handy Mike DO [address] [place] [address] PCP - General Family Medicine 07/16/12 Team Status: Inactive Member Role Status Dates Dr. Handy Mike , DO Primary Care Provider, Referr ing Provider Active ROSARIO Amaya Attending Provider Active Team Status: Inactive Member Role Status Dates Dr. Handy Mike , DO Primary Care Provider Active Dr. Red Martin , DO Emergency Provider Active Team Status: Active Member Role Status Dates Dr. Handy Mike , DO Primary Care Provider Active Dr. David Mo , DO Emergency Provider Active Dr. John Paul Trujillo , DO Admit Provider, Attending Provider, Other Provider Active Team Status: Inactive Member Role Status Dates Dr. Handy Mike , DO Primary Care Provider Active Dr. Red Martin , DO Attending Provider, Emergency Pr ovider Active Team Status: Active Member Role Status Dates Dr. Handy Mike , DO Primary Care Provider Active Dr. David Mo , DO Emergency Provider Active Dr. John Paul Trujillo , DO Admit Provider, Attending Pro vider Active Dr. Pankaj Gutierrez MD Other Provider Active Dr. Ambrosio Snow MD Other Provider Active Dr. Ashu Martel , DO Other Provider Active Dr. Tae Daigle MD Other Provider Active Dr. Glenny Mandujano MD Other Provider Active Dr. Benitez Goodman MD Other Provider Active Dr. Astrid Galindo MD Other Provider Active Dr. Martha Dangelo MD Other Provider Active Dr. Josse Ramos MD Other Provider Active Dr. Kalia Perkins MD Other Provider Active Dr. Dada Montes De Oca MD Other Provider Active Dr. Tim Bosch MD Other Provider Active Idea Worker Relationship Specialty Start Date End Date Handy Mike DO [address] [place] [address] PCP - General Family Medicine 07/16/12 Team Status: Active Member Role Status Dates Dr. Handy Mike , DO Primary Care Provider Active Dr. David Mo , DO Emergency Provider Active Dr. John Paul Trujillo , DO Admit Provider, Other Provide r Active Dr. Pankaj Gutierrez MD Other Provider Active Dr. Ambrosio Snow MD Attending Provider, Other Provid er Active Dr. Ashu Martel , DO Other Provider Active Dr. Tae Daigle MD Other Provider Active Dr. Glenny Mandujano MD Other Provider Active Dr. Benitez Goodman MD Other Provider Active Dr. Astrid Galindo MD Other Provider Active Dr. Martha Dangelo MD Other Provider Active Dr. Josse Ramos MD Other Provider Active Dr. Kalia Perkins MD Other Provider Active Dr. Dada Montes De Oca MD Other Provider Active Dr. Tim Bosch MD Other Provider Active Dr. Kalina Caicedo , DO Other Provider Active Team Status: Active Member Role Status Dates Dr. Handy Mike , DO Primary Care Provider Active Dr. Didi Delatorre MD Attending Provider Activ e Team Status: Active Member Role Status Dates Dr. Handy Mike , DO Primary Care Provider Active Dr. David Mo , DO Emergency Provider Active Dr. John Paul Trujillo , DO Admit Provider, Other Provide r Active Dr. Pankaj Gutierrez MD Other Provider Active Dr. Ambrosio Snow MD Other Provider Active Dr. Ashu Martel , DO Other Provider Active Dr. Tae Daigle MD Other Provider Active Dr. Glenny Mandujano MD Other Provider Active Dr. Benitez Goodman MD Other Provider Active Dr. Astrid Galindo MD Other Provider Active Dr. Martha Dangelo MD Other Provider Active Dr. Josse Ramos MD Other Provider Active Dr. Kalia Perkins MD Other Provider Active Dr. Dada Montes De Oca MD Other Provider Active Dr. Tim Bosch MD Other Provider Active Dr. Kalina Caicedo , DO Attending Provider, Other Provide r Active Team Status: Inactive Member Role Status Dates Dr. Handy Mike , DO Primary Care Provider Active Dr. David Mo , DO Emergency Provider Active Dr. John Paul Trujillo , DO Admit Provider, Other Provide r Active Dr. Pankaj Gutierrez MD Other Provider Active Dr. Ambrosio Snow MD Other Provider Active Dr. Ashu Martel , Other Provider Active Dr. Tae Daigle MD Other Provider Active Dr. Glenny Mandujano MD Other Provider Active Dr. Benitez Goodman MD Other Provider Active Dr. Astrid Galindo MD Other Provider Active Dr. Martha Dangelo MD Other Provider Active Dr. Josse Ramos MD Other Provider Active Dr. Kalia Perkins MD Other Provider Active Dr. Dada Montes De Oca MD Other Provider Active Dr. Tim Bosch MD Other Provider Active Dr. Kalina Caicedo , Attending Provider Active Idea Worker Relationship Specialty Start Date End Date Handy Mike DO [address] [place] [address] PCP - General Family Medicine 07/16/12 Idea Worker Relationship Specialty Start Date End Date Handy Mike DO [address] [place] [address] PCP - General Family Medicine 07/16/12 Idea Worker Relationship Specialty Start Date End Date Handy Mike DO [address] [place] [address] PCP - General Family Medicine 07/16/12 Idea Worker Relationship Specialty Start Date End Date Handy Mike DO [address] [place] [address] PCP - General Family Medicine 07/16/12 Idea Worker Relationship Specialty Start Date End Date Handy Mike DO [address] [place] [address] PCP - General Family Medicine 07/16/12 Idea Worker Relationship Specialty Start Date End Date Handy Mike DO [address] [facility] [place] [address] PCP - General Family Medicine 07/16/12 Idea Worker Relationship Specialty Start Date End Date Handy Mike DO [address] [facility] [place] [address] PCP - General Family Medicine 07/16/12 Cynthia Jordan, DIAMOND PICKER.SODA COLUMN OPERATOR [address] [place] [address] [employer] [facility] 05/17/24 AminaJimmie, DIAMOND PICKER.SODA COLUMN OPERATOR [address] [place] [address] W[employer] [facility] 05/17/24 Idea Worker Relationship Specialty Start Date End Date Handy Mike DO [address] [place] [address] PCP - General Family Medicine 07/16/12 Cynthia Jordan, DIAMOND PICKER.SODA COLUMN OPERATOR [address] [facility] [place] [address] W[employer] [facility] 05/17/24 AminaJimmie, DIAMOND PICKER.SODA COLUMN OPERATOR [address] [place] [address] Wrapper Stem[employer] [facility] 05/17/24 Idea Worker Relationship Specialty Start Date End Date Handy Mike DO [address] [facility] [place] [address] PCP - General Family Medicine 07/16/12 Cynthia Jordan, DIAMOND PICKER.SODA COLUMN OPERATOR [address] [place] [address] W[employer] [facility] 05/17/24 Jimmie Carlos, DIAMOND PICKER.SODA COLUMN OPERATOR [address] [place] [address] Wrapper Stem[employer] [facility] 05/17/24 Idea Worker Relationship Specialty Start Date End Date Handy Mike DO [address] [place] [address] PCP - General Family Medicine 07/16/12 Cynthia Jordan, DIAMOND PICKER.SODA COLUMN OPERATOR [address] [place] [address] [employer] [facility] 05/17/24 Jimmie Carlos, DIAMOND PICKER.SODA COLUMN OPERATOR [address] [place] [address] Wrapper [employer] [facility] 05/17/24 Idea Worker Relationship Specialty Start Date End Date Handy Mike DO [address] [place] [address] PCP - General Family Medicine 07/16/12 Cynthia Jordan, DIAMOND PICKER.SODA COLUMN OPERATOR [address] [place] [address] [employer] 05/17/24 Jimmie Carlos, DIAMOND PICKER.SODA COLUMN OPERATOR [address] [place] [address] Wrapper Stemmer [facility] 05/17/24 Idea Worker Relationship Specialty Start Date End Date Handy Mike DO [address] [place] [address] PCP - General Family Medicine 07/16/12 AminaJimmie, DIAMOND PICKER.SODA COLUMN OPERATOR [address] [place] [address] W[employer] St[employer] [facility] 05/17/24 Idea Worker Relationship Specialty Start Date End Date Handy Mike DO [address] [place] [address] PCP - General Family Medicine 07/16/12 AminaJimmie, DIAMOND PICKER.SODA COLUMN OPERATOR [address] [place] [address] [employer] [facility] 05/17/24 Idea Worker Relationship Specialty Start Date End Date Handy Mike DO [address] [place] [address] PCP - General Family Medicine 07/16/12 AminaJimmie, DIAMOND PICKER.SODA COLUMN OPERATOR [address] [place] [address] [employer] [facility] 05/17/24 Idea Worker Relationship Specialty Start Date End Date Handy Mike DO [address] [place] [address] PCP - General Family Medicine 07/16/12 AminaJimmie, DIAMOND PICKER.SODA COLUMN OPERATOR [address] [place] [address] Wrapper Stemmer [facility] 05/17/24 Ursula Mc, DIAMOND PICKER.SODA COLUMN OPERATOR [address] [place] [address] [facility] 11/23/24 Idea Worker Relationship Specialty Start Date End Date Handy Mike DO [address] [place] [address] PCP - General Family Medicine 07/16/12 AminaJimmie, DIAMOND PICKER.SODA COLUMN OPERATOR [address] [place] [address] Wrapper Stemmer [facility] 05/17/24 Ursula Mc, DIAMOND PICKER.SODA COLUMN OPERATOR [address] [place] [address] [facility] 11/23/24 Idea Worker Relationship Specialty Start Date End Date Handy Mike DO [address] [place] [address] PCP - General Family Medicine 07/16/12 [facility] DIAMOND PICKER.SODA COLUMN OPERATOR [address] [place] [address] [facility] 05/17/24 Ursula Mc, DIAMOND PICKER.SODA COLUMN OPERATOR [address] [place] [address] [facility] 11/23/24 Idea Worker Relationship Specialty Start Date End Date Handy Mike DO [address] [place] [address] PCP - General Family Medicine 07/16/12 [facility] DIAMOND PICKER.SODA COLUMN OPERATOR [address] [place] [address] W[employer] [facility] 05/17/24 Ursula Mc, DIAMOND PICKER.SODA COLUMN OPERATOR [address] [place], [place] [address] [facility] 11/23/24 Idea Worker Relationship Specialty Start Date End Date Handy Mike DO [address] [place], [place] [id number] PCP - General Family Medicine 07/16/12 Jimmie Carlos, DIAMOND PICKER.SODA COLUMN OPERATOR [address] [place], [place] [address] [facility] 05/17/24 Ursula Mc, DIAMOND PICKER.SODA COLUMN OPERATOR [address] [place] [id number] [facility] 11/23/24 Reason for Visit (unrecogniz ed section and content) Reason Comments hospital f/up Specialty Diagnoses / Procedures Referred By Contac t Referred To Contact FAMILY MEDICINE Diagnoses PCP Follow ups Procedures PCP Follow ups Handy Mike DO [address] [place] [address] [facility] [address] [place] [address] Referral ID Status Reason Start Date Expiration Date Visits Requested Visits Authorized [id number] Authorized Patient Cleared - Qualified 100% FAS 08/08/2023 11/06/2023 99 99 Reason Comments Anticoagulation Reason Comments Follow Up Reason Onset Date Comments Refill Request 10/25/2021 Reason Comments Follow Up 3 months Reason Comments UTI Burning and lower ba ck pain x 4 days Specialty Diagnoses / Procedures Referred By Contac t Referred To Contact FAMILY MEDICINE Diagnoses Possible UTI Procedures OFFICE CONSULTATION NEW/ESTAB PATIENT 15 MIN office consult Self Handy Mike DO [address] [place] [address] Referral ID Status Reason Start Date Expiration Date Visits Requested Visits Authorized [id number] Pending Review OON/Self Pay Override 2 11/24/2022 [...] US ABDOMINAL REAL TIME W/IMAGE LIMITED Handy Mike, DO [address] [place] [address] [facility] Referral ID Status Reason Start Date Expiration Date V isits Requested Visits Authorized [id number] Closed Auto-Generate d Referral 06/27/2022 07/27/2023 1 1 Reason Comments Medication Follow-up Adipex Reason Comments Head Congestion Reason Comments Covid Positive Specialty Diagnoses / Procedures [facility] To Contact Diagnoses Possible Covid and all appts Procedures OFFICE/OUTPATIENT ESTABLISHED LOW MDM 20-29 MIN Handy Mike, DO [address] [place] [address] [facility] [place] [address] Referral ID Status Reason Start Date Expiration Date Visits Requested Visits Authorized [id number] Authorized Patient Cleared - Qualified 100% FAS 3 08/06/2023 99 99 Reason Comments Medication Problem Reason Comments Medication Question Reason Comments patient update on COVID Specialty Diagnoses / Procedures [facility] Referred To Contact Diagnoses Possible Covid and all appts Procedures OFFICE/OUTPATIENT ESTABLISHED LOW MDM 20-29 MIN Handy Mike L, DO [address] [place] [address] [place] [address] Reason Comments Cough Diarrhea Reason Comments blood in urine, ankles very swollen Stat es tested positive for flu about week ago has not eaten in past 3 weeks but applesauce and jello. Hurts to breath and diarrhea Reason Comments Patient Update Reason Comments Results Reason Onset Date Comments Refill Request 08/17/2023 Reason Onset Date Comments Refill Request 08/19/2023 Reason Onset Date Comments Refill Request 09/15/2023 Reason Comments feet and ankles swollen and painful Ever since been home from hospital this has been. States wakes up this way ad has adjustable bed so they are up.ot sure what's causing or what's different. Reason Onset Date Comments Refill Request 06/26/2024 Reason Onset Date Comments Refill Request 09/10/2024 Reason Comments rash in abd fold hurting and red and fee ls may have uti Reason Comments Physical Goals (unrecognized section and content) Goals may be documented in a n alternate sectionGoals may be documented in an alternate sectionGoals may be documented in an alternate section INFORMATION SOURCE (unrecogn ized section and content) DATE CREATED AUTHOR 10/06/2023 [facility] DATE CREATED AUTHOR AUTHOR'S FER WATT 03/13/2025 [facility] FOR RECORDS PERTAINING TO PATIENTS WHO ARE [...] BE BASED ON THE PRIMARY CLINICAL RECORDS. [employer] [facility] provides no warranty or guarantee of the accuracy or completeness of information in this document.
[2025-03-14 14:06] LABS: Hematocrit 39.1 % (37-47); Hemoglobin 14.2 g/dL (12.0-15.0); Mean Corp Hgb Conc 36.3 g/dL (32-36); Mean Corpuscular Volume 92.0 fL (81-99); Mean Platelet Vol. 8.2 fl (6.2-12.0); Platelet Count 152 K/mm3 (150-450); RBC Distribution Width CV 13.0 % (11.6-14.6); RBC Distribution Width SD 43.5 fl (35.1-43.9); Red Blood Count 4.25 M/mm3 (4.2-5.4); White Blood Count 6.4 K/mm3 (4.4-11.0)
[2025-03-14 14:16] LABS: Prothrombin Time (Protime)PT. 25.0 SECONDS (11.7-14.9)
[2025-03-14 14:45] VITALS: BP 115/53; PULSE 69; RESP 13; O2SAT 97
[2025-03-14 14:57] LABS: Troponin T High Sensitivity < 6 ng/L (<=14)
[2025-03-14 15:00] VITALS: BP 111/62; PULSE 64; RESP 10; O2SAT 99
[2025-03-14 15:01] LABS: AST(SGOT) 25 U/L (<=31); Alanine Aminotransfer ALT/SGPT 26 U/L (<=34); Albumin, Serum 3.7 g/dL (3.5-5.0); Alkaline Phosphatase 106 U/L (35-104); Anion Gap 13 (5-15); BUN 14 mg/dL (4-19); BUN/Creat Ratio 11.9 RATIO (10-20); Calcium,Total 9.0 mg/dL (7.6-11.0); Carbon Dioxide 26.0 mmol/L (21.0-32.0); Chloride 103 mmol/L (98-108); Estimated Creatinine Clearance 71.71 ml/min (50-250); Globulin 3.0 g/dL (2.2-4.2); Glucose 103 mg/dL (70-99); Potassium 4.0 mmol/L (3.3-5.1)
[2025-03-14 16:36] LABS: Troponin T High Sens 2 HR < 6 ng/L (<=14)
[2025-03-14 16:47] VITALS: BP 124/70; PULSE 78; RESP 14; TEMP 37; O2SAT 100
== END 2025-03-14 17:25 | disposition home or self-care (01) ==
PROVIDERS: Emergency Provider Emergency Medicine; PCP Student in an Organized Health Care Education/Training Program; Visit Provider Emergency Medicine
DX: S00.93XA Contusion of unspecified part of head, initial encounter (principal); D68.2 Hereditary deficiency of other clotting factors; S50.02XA Contusion of left elbow, initial encounter; W19.XXXA Unspecified fall, initial encounter; Z79.01 Long term (current) use of anticoagulants
CPT/HCPCS: 70450; 71045; 73080; 80053; 82962; 84484; 85027; 85610; 93005; 99285; A4216